=== PATIENT | female | born 1945 | race Caucasian/White ===

== ENCOUNTER 2023-02-25 09:50 | Outpatient (RCR) | payer MEDICARE, BC, SELFPAY | END 2023-03-20 14:13 | disposition home or self-care (01) | LOC: PT 09:50 | PROVIDERS: PCP Family Medicine; Visit Provider Anesthesiology Pain Medicine | DX: M54.16 Radiculopathy, lumbar region (principal); M25.512 Pain in left shoulder | CPT/HCPCS: 97110; 97535 ==

== ENCOUNTER 2023-02-25 09:51 | Outpatient (RCR) | payer MEDICARE, BC, SELFPAY | END 2023-03-01 10:09 | disposition left against medical advice (07) | LOC: PT 09:51 | PROVIDERS: PCP Family Medicine; Visit Provider Family Medicine | DX: M25.512 Pain in left shoulder (principal); Z53.21 Procedure and treatment not carried out due to patient leaving prior to being seen by health care provider ==

== ENCOUNTER 2023-04-06 13:52 | Outpatient (OUT) | payer MEDICARE, BC, SELFPAY ==
--- NOTE | 2023-02-26 10:47 | PM.CN ---
Consult Note: HPI Data of Consult Patient: known to practice within the last 3 years Consult date: 02/26/23 Requesting Physician: Gianna Kelley MD Primary Care Provider: LUIS THOMAS Consult Narrative Reason for consult: back pain Narrative: Letty is here for f/u for low back pain. MRI was done 02/09/23. Results reviewed with patient and suggested neurosurgical consult. She is in agreement. No new sensorimotor issues or bowel or bladder issues. No incontinence. Sx unchanged. She has low back pain that goes down her right leg and causes numbness and tingling intermittently to the right leg. She denies med SE. She also notes slight weakness of right leg cc:: CC: Gianna Kelley MD Review of Systems ROS Status of ROS 10 or more systems reviewed and unremarkable except as noted in history and below Musculoskeletal Reports: back pain Meds Home Medications and Allergies Home Medications Medication Instructions Recorded Confirmed Type aspirin 81 mg tablet,delayed 81 mg PO DAILY 02/26/23 02/26/23 History release (Adult Low Dose Aspirin) denosumab 60 mg/mL subcutaneous 60 mg subcut .Q6 MONTHS 02/26/23 02/26/23 History syringe (Prolia) niacin 500 mg tablet 500 mg PO DAILY 02/26/23 02/26/23 History zonisamide 50 mg capsule 50 mg PO DAILY 02/26/23 02/26/23 History Allergies Allergy/AdvReac Type Severity Reaction Status Date / Time No Known Drug Allergies Allergy Verified 02/26/23 10:20 Exam Constitutional: Common normals: no apparent distress, average body habitus, oriented x3, no limitations, healthy appearing, alert and well nourished General appearance: cooperative, comfortable and well developed Orientation/consciousness: Yes awake, Yes oriented to person, Yes oriented to place and Yes oriented to time HENMT: Common normals: normocephalic, head/scalp atraumatic, external nose normal and moist oral mucous membranes Respiratory: Common normals: normal respiratory effort, no retractions and no use of accessory muscles Effort & inspection: able to speak in complete sentences Back & Pelvis: Lumbar spine/lower back: ROM limited, pain with ROM, paraspinal muscle tenderness and straight leg raise negative bilaterally Other: muscle strength 4/5 right, 5/5 left, sensation intact bilat LE. positive facet load and angel right Extremity: Common normals: normal to inspection, full ROM and normal capillary refill Skin: Common normals: no rashes or lesions noted Assessment and Plan Assessment and Plan (1) Lumbar spondylosis: (2) Lumbar radiculopathy: Plan discussed with patient importance of seeing neurosurgical consult. If cleared by them, may benefit from [facility].
--- NOTE | 2023-04-06 17:37 | CONS_ITS ---
CONSULTATION DATE: ??04/06/2023 TO:? Emely Kramer M.D. CHIEF COMPLAINT:? Includes right leg pain, right buttock pain. HISTORY:? She reports having 5-7/10 pain, deep aching in character with a sharp component, increased with walking for short periods of time.? She reports that she develops heaviness in her legs after ambulating for even short distances.? After resting for a few minutes, she reports her symptomatology does improve dramatically.? She is able to ambulate further with the use of a shopping cart if she is at store.? She denies any change in bowel and bladder habits or new sensorimotor changes in the lower extremities. EXAMINATION:? Notable for patient having no clinical radiculopathy or myelopathy involving the lower extremities.? Patient did have depressed bipatellar reflex, weakness of the iliopsoas muscle bilaterally. IMPRESSION:? Our impression is patient with chronic pain secondary to spinal stenosis with neurogenic claudication.? RECOMMENDATIONS:? I have asked her to increase her Zonegran to 50 mg pills, two pills at bedtime, to proceed with lumbar epidural steroid injection under fluoroscopic guidance at L4-5 level.? I have also requested her to seek consultation with a spine surgeon and have made the appropriate referral to [facility]. As part of providing excellent, safe, comprehensive care, the following was completed at our patient's visit: 1. A medication reconciliation and review to ensure accurate knowledge of current/active medications, including asking our patients to inform us about any opcx-fjd-giqhuhw medications or herbal remedies/nutritional supplements/alternative remedies. 2. A review to specifically ensure our patients have had annual screening for: elevated body mass index (BMI, see intake chart for exact total), tobacco use, screening for depression, and screening for unhealthy alcohol use.? When screening is concerning, patients are provided with education and the specific recommendation to discuss the concerning health issue and treatment options with their primary care provider. TRENT
== END 2023-04-06 13:53 | disposition home or self-care (01) ==
LOC: PM 13:52
PROVIDERS: PCP Family Medicine; Visit Provider Anesthesiology Pain Medicine
DX: M47.26 Other spondylosis with radiculopathy, lumbar region (principal); M54.50 Low back pain, unspecified
CPT/HCPCS: G0463

== ENCOUNTER 2023-04-13 08:48 | Day surgery (SDC) | payer MEDICARE, BC, SELFPAY ==
[2023-04-13 09:05] VITALS: BP 148/93; PULSE 80; RESP 16; TEMP 36.4; O2SAT 97
[2023-04-13] MEDS: BUPIVACAINE HCL 0.25% PF 25 MG/10 ML VIAL 2 ML INJ (09:53)
[2023-04-13] MEDS: 0.9 % SODIUM CHLORIDE 10 ML SYRINGE - SALINE FLUSH 2 ML INJ (09:53)
[2023-04-13] MEDS: IOHEXOL 240 MG/ML - 10 ML VIAL INJ (09:54)
[2023-04-13] MEDS: METHYLPREDNISOLONE ACETATE 80 MG/ML VIAL INJ (09:54)
[2023-04-13] MEDS: LIDOCAINE HCL 2% PF 100 MG/5 ML VIAL 4 ML INJ (09:54)
--- NOTE | 2023-04-13 10:27 | P.ON_ITS ---
Date of procedure: 04/13/23 Pre-op diagnosis: Spinal Stenosis with Claudication Post-op diagnosis: same Procedure: Lumbar Epidural Steroid injection Under fluoroscopic guidance Immediate complications none Solution used for injection: Marcaine 0.25% 2mL, 2cc Normal saline, Depo-Medrol 80mg, Omnipaque 3 mL Anesthesia local 2% lidocaine up to 4ml Time out process compliant After informed consent obtained. patient brought to the procedure room placed in the prone position. skin overlying the area was prepped and draped in a sterile fashion using betadine. 25 gauge needle used To raise a skin wheel with local anesthetic over the target area identified under fluoroscopy . a 17 gauge Touhy needle Was inserted over the anesthetized area and directed towards the inter- space under fluoroscopic guidance . epidural space was identified with loss of resistance technique to air. needle Tip placement confirmed with injection of contrast solution. Steroid solution was then injected. [place] removed post operatively. Patient transferred to recovery room in stable condition, to be discharged home after meeting Criteria Surgeon: Hayes Layton
[2023-04-13 13:35] VITALS: BP 165/79; BP 177/78; PULSE 78; PULSE 79; RESP 20; O2SAT 94; O2SAT 95
== END 2023-04-13 10:02 | disposition home or self-care (01) ==
LOC: SURGOUT 08:50
PROVIDERS: PCP Family Medicine; Visit Provider Anesthesiology Pain Medicine
DX: M48.062 Spinal stenosis, lumbar region with neurogenic claudication (principal)
CPT/HCPCS: 62323; J1040; Q9966

== ENCOUNTER 2023-05-18 09:15 | Outpatient (OUT) | payer MEDICARE, BC, SELFPAY ==
--- NOTE | 2023-05-18 | CONS_ITS ---
CONSULTATION DATE: ??05/18/2023 TO:? Emely Kramer M.D. CHIEF COMPLAINT:? Includes right low back pain. HISTORY:? She reports the pain as being 3-7/10 pain, sharp in character, increased with activities such as standing, walking and performing transitioning maneuvers.? She denies any change in bowel and bladder habits or new sensorimotor changes in the lower extremities.? EXAMINATION:? Notable for patient having no clinical radiculopathy or myelopathy on examination on today?s visit.? Patient did have significant pain with lumbar facet loading maneuvers on the right side at L4-5 and L5-S1 with associated myofascial spasm of the lumbar paravertebral muscles.? She had nothing to suggest facet joint dysfunction on today?s visit. IMPRESSION:? Our impression is patient appears to have chronic pain secondary to lumbosacral spondylosis with facet loading pain clinically.? She had seen a neurosurgeon for her current condition and they did not recommend surgery at this time.? She has failed conservative therapy with medication management, independent home exercise program, and she is somewhat intolerant to non- steroidal agents.? RECOMMENDATIONS:? I recommend proceeding with a right sided L4-5, L5-S1 facet joint injection for therapeutic purposes.? I have increased the Zonegran 50 mg pills, 2-3 pills at h.s. as tolerated.? I have asked her to continue with the current dose of baclofen 10 mg pills, one b.i.d. As part of providing excellent, safe, comprehensive care, the following was completed at our patient's visit: 1. A medication reconciliation and review to ensure accurate knowledge of current/active medications, including asking our patients to inform us about any crml-nce-yuzirxy medications or herbal remedies/nutritional supplements/alternative remedies. 2. A review to specifically ensure our patients have had annual screening for: elevated body mass index (BMI, see intake chart for exact total), tobacco use, screening for depression, and screening for unhealthy alcohol use.? When screening is concerning, patients are provided with education and the specific recommendation to discuss the concerning health issue and treatment options with their primary care provider TRENT
== END 2023-05-18 09:16 | disposition home or self-care (01) ==
LOC: PM 05-19 11:17
PROVIDERS: PCP Family Medicine; Visit Provider Nurse Practitioner
DX: M47.817 Spondylosis without myelopathy or radiculopathy, lumbosacral region (principal); G89.29 Other chronic pain
CPT/HCPCS: G0463

== ENCOUNTER 2023-06-15 12:23 | Day surgery (SDC) | payer MEDICARE, BC, SELFPAY ==
[2023-06-15 12:51] VITALS: BP 161/87; PULSE 81; RESP 16; TEMP 36.2; O2SAT 98
[2023-06-15 13:37] VITALS: RESP 20
[2023-06-15] MEDS: METHYLPREDNISOLONE ACETATE 40 MG/ML VIAL INJ (13:42)
[2023-06-15] MEDS: BUPIVACAINE HCL 0.25% PF 25 MG/10 ML VIAL 4 ML INJ (13:43)
[2023-06-15 13:45] VITALS: BP 173/81; BP 178/93; PULSE 71; PULSE 73; O2SAT 95; O2SAT 96
--- NOTE | 2023-06-15 13:59 | W.PM.PROCNOT ---
Date of procedure: 06/15/23 Pre-op diagnosis: Lumbar Spondylosis Post-op diagnosis: same as pre-op Procedure: Right lumbar 4/5, 5/S1 facet injection Under fluoroscopic guidance Solution injected: 2millilitersMarcaine 0.25% Anesthesia :none Immediate complications none Time out process compliant After informed consent obtained from the patient placed in the Prone proposition . area was prepped and draped in a sterile fashion using betadine. 25 gauge spinal needle inserted over each of the above mentioned target areas . Johnson were directed towards the target under fluoroscopic guidance . after encountering each of the targets , no indication of intravascular intraneuronal or intrathecal needle tip placement. Then 0 .5 to 1 Milliliter was injected at each level. Johnson removed postoperatively. patient transferred to recovery in stable condition to be discharged home after meeting criteria Anesthesia: Local Surgeon: Hayes Layton Condition: stable
== END 2023-06-15 13:48 | disposition home or self-care (01) ==
LOC: SURGOUT 12:24
PROVIDERS: PCP Family Medicine; Visit Provider Anesthesiology Pain Medicine
DX: M47.816 Spondylosis without myelopathy or radiculopathy, lumbar region (principal)
CPT/HCPCS: 64493; 64494; J1030

== ENCOUNTER 2023-06-29 14:06 | Outpatient (OUT) | payer MEDICARE, BC, SELFPAY ==
--- NOTE | 2023-06-29 | CONS_ITS ---
CONSULTATION DATE: ??06/29/2023 TO:? Emely Kramer M.D. CHIEF COMPLAINT:? Includes 2-5/10 pain in her right lower extremity, right buttock area, described as a dull, aching pain, increased with activities such as standing and walking, performing transitioning maneuvers.? Denies any change in bowel and bladder habits or new sensorimotor changes in the lower extremities.? EXAM:? Her examination is notable for patient having hypoesthesia along the right L5 dermatome, weakness to the right EHL, depressed right Achilles reflex and straight leg raise positive at approximately 90 degrees.? IMPRESSION:? Our impression is patient has chronic pain secondary to right L5 radiculopathy, which is fairly stable at this time.? RECOMMENDATIONS:? I have asked her to continue with Tylenol, to not ingest more than 2000 mg in a 24 hour period.? I asked her to continue with the Zonegran 150 mg at h.s.? Since she is fairly stable at this point, she feels that he does not wish to proceed with surgery.?? Since she is fairly stable, despite her symptoms and signs consistent with right L5 radiculopathy, I have recommended no further intervention at this time.? We will see the patient back in the office in approximately six months? time or sooner if needed. As part of providing excellent, safe, comprehensive care, the following was completed at our patient's visit: 1. A medication reconciliation and review to ensure accurate knowledge of current/active medications, including asking our patients to inform us about any gpgr-vle-rdiehkv medications or herbal remedies/nutritional supplements/alternative remedies. 2. A review to specifically ensure our patients have had annual screening for: elevated body mass index (BMI, see intake chart for exact total), tobacco use, screening for depression, and screening for unhealthy alcohol use.? When screening is concerning, patients are provided with education and the specific recommendation to discuss the concerning health issue and treatment options with their primary care provider. TRENT
== END 2023-06-29 14:07 | disposition home or self-care (01) ==
LOC: PM 14:07
PROVIDERS: PCP Family Medicine; Visit Provider Anesthesiology Pain Medicine
DX: G89.29 Other chronic pain (principal); M54.16 Radiculopathy, lumbar region
CPT/HCPCS: G0463

== ENCOUNTER 2023-07-15 07:43 | Outpatient (RCR) | payer MEDICARE, BC, SELFPAY ==
[2023-07-10 07:36] LABS: Calcium 8.5 mg/dL (8.5-10.1); Estimated GFR (African America >60 (>=60); Estimated GFR (Non-African Ame >60 (>=60)
[2023-07-15] MEDS: DENOSUMAB 60 MG/ML SYRINGE SUBQ (08:18)
[2023-07-15 08:23] VITALS: BP 134/74; PULSE 70; RESP 18; TEMP 36.6; O2SAT 98
== END 2023-07-27 23:59 | disposition home or self-care (01) ==
LOC: INF 07:43
PROVIDERS: PCP Family Medicine; Visit Provider Family Medicine
DX: M81.0 Age-related osteoporosis without current pathological fracture (principal)
CPT/HCPCS: 36415; 82306; 82310; 82565; 96372; J0897

== ENCOUNTER 2023-07-19 08:06 | Outpatient (OUT) | payer MEDICARE, BC, SELFPAY ==
--- NOTE | 2023-07-19 | MM_ITS ---
Patient: GAYATHRI LOPEZ Exam Date: 07/19/2023 : 1945 Gender:F Ordering : DR Emely Kramer M.D. Admission #: [id number] Family : Order #: [id number] CLICK HERE TO VIEW EXAM RADIOLOGY REPORT PROCEDURE: MM TOMOSYNTHESIS SCREENING BI COMPARISON: MG MAMM SCREEN 3D SHERRIE CAD, 03/05/2022. MG MAMM SCREEN SHERRIE W CAD, 10/24/2020. MG MAMM SCREEN SHERRIE W CAD, 07/21/2019. MG MAMM SHERRIE SCRN W CAD DIG, 06/12/2013. INDICATIONS: Screening Calculator Name NCI Breast Cancer Risk Assessment Tool 5 Year Breast Cancer Risk 1.60% Lifetime Breast Cancer Risk 3.20% Personal Breast Cancer No Personal Ovarian Cancer No Treatments None Family Cancers None LOCATION: [facility] BREAST COMPOSITION: Scattered areas fibroglandular density. FINDINGS: DIAGNOSTIC CATEGORY 1--NEGATIVE. RIGHT BREAST: No significant suspicious finding. No significant change has occurred. LEFT BREAST: No significant suspicious finding. No significant change has occurred. RECOMMENDATIONS: ROUTINE MAMMOGRAM AND CLINICAL EVALUATION IN 12 MONTHS. PLEASE NOTE: A NORMAL MAMMOGRAM DOES NOT EXCLUDE THE POSSIBILITY OF BREAST CANCER. A CLINICALLY SUSPICIOUS PALPABLE LUMP SHOULD BE BIOPSIED. Dictated by: Matthew Lopez M.D. on 07/20/2023 at 14:50 Approved by: Matthew Lopez M.D. on 07/20/2023 at 14:52
== END 2023-07-19 08:07 | disposition home or self-care (01) ==
LOC: MAMMO 08:06
PROVIDERS: PCP Family Medicine; Visit Provider Family Medicine
DX: Z12.31 Encounter for screening mammogram for malignant neoplasm of breast (principal)
CPT/HCPCS: 77063; 77067

== ENCOUNTER 2024-01-11 13:03 | Outpatient (OUT) | payer MEDICARE, BC, SELFPAY ==
--- NOTE | 2024-01-11 | CONS_ITS ---
CONSULTATION DATE: 01/11/2024 TO: Kimber Price CNP CHIEF COMPLAINT: Includes severe right leg pain. HISTORY: She reports the pain as being 5-6/10 pain, sharp in character with a shooting component, increased with activities such as standing, walking and performing transitioning maneuvers. She feels most comfortable in the semi- recumbent position. She denies any change in bowel and bladder habits, but reports progressive tingling and weakness of the right lower extremity. CURRENT MEDICATION: Includes Zonegran 50 mg pills, three pills at bed; Baclofen 10 mg pills, one b.i.d., and she reports Tylenol is ineffective any more. Her MELANIA (Oswestry Disability Index) is 28. EXAMINATION: Notable for patient having 3/5 strength involving her right anterior tibialis and quadriceps, with depressed right patellar reflex, and straight leg is positive at approximately 90 degrees. She had no appreciable signs consistent with myelopathy of the lower extremities. IMPRESSION: Our impression is patient appears to have right L4 radiculopathy. RECOMMENDATIONS: I recommend that she proceed with a caudal epidural steroid injection under fluoroscopic guidance with advancement of the catheter to the L4 level. I have asked her to discontinue Tylenol. Will trial her on tramadol 50 mg pills, half a pill to one pill b.i.d. as tolerated, and to maintain Zonegran and baclofen as ordered. As part of providing excellent, safe, comprehensive care, the following was completed at our patient's visit: 1. A medication reconciliation and review to ensure accurate knowledge of current/active medications, including asking our patients to inform us about any zwpx-urt-dytiicc medications or herbal remedies/nutritional supplements/alternative remedies. 2. A review to specifically ensure our patients have had annual screening for: elevated body mass index (BMI, see intake chart for exact total), tobacco use, screening for depression, and screening for unhealthy alcohol use. When screening is concerning, patients are provided with education and the specific recommendation to discuss the concerning health issue and treatment options with their primary care provider. TRENT
== END 2024-01-11 13:04 | disposition home or self-care (01) ==
LOC: PM 13:03
PROVIDERS: PCP Nurse Practitioner Family; Visit Provider Anesthesiology Pain Medicine
DX: M54.16 Radiculopathy, lumbar region (principal)
CPT/HCPCS: G0463

== ENCOUNTER 2024-01-25 07:35 | Day surgery (SDC) | payer MEDICARE, BC, SELFPAY ==
--- OUTSIDE RECORDS SUMMARY | 2024-01-25 07:38 | XMS_ITS | CCD ---
Author Organization [facility] Care Team Providers Care Tester Sound Name Role Phone DARA, EMRE Llanes Unavailable Unavailable DARA, EMRE K Unavailable Unavailable KAT NOBLE Unavailable Unavailable Emely Thomas Unavailable MARTHA, DR EMELY Becker Primary Care Unavailable THOMAS, DR EMELY Becker Admitting Unavailable THOMAS, DR EMELY Becker Attending Unavailable LEES ., DR YULI Nguyen Attending Unavailable LEES ., DR YULI Nguyen Admitting Unavailable LEES ., DR YULI Nguyen Consulting Unavailable MARTHA, DR EMELY Becker Primary Care Unavailable JOSE MANUEL LUNA Consulting Unavailable LAKSHMIPATHY ., ROZATH Consulting Johanny vailable LAKSHMIPATHY ., MORRIS Admitting Johanny vailable LAKSHMIPATHY ., MORRIS Attending Johanny vailable MARTHA, DR EMELY Becker Primary Care Unavailable THOMAS, DR EMELY Becker Admitting Unavailable THOMAS, DR EMELY Becker Primary Care Unavailable THOMAS, DR EMELY Becker Attending Unavailable THOMAS, DR EMELY Becker Consulting Unavailable THMOAS, DR EMELY Becker Primary Care Unavailable LEES ., DR YULI Nguyen Consulting Unavailable LEES ., DR YULI Nguyen Attending Unavailable LEES ., DR YULI Nguyen Admitting Unavailable LEES ., DR YULI Nguyen Consulting Unavailable LEES ., DR YULI Nguyen Admitting Unavailable LEES ., DR YULI Nguyen Attending Unavailable MARTHA, DR EMELY Becker Primary Care Unavailable LAKSHMIPATHY ., NARHARVINDER Admitting Johanny vailable LAKSHMIPATHY ., MORRIS Attending Johanny vailable MARTHA, DR EMELY Becker Primary Care Unavailable WINDSOR, DR YOUSUF Ferguson Consulting Unavailable THOMAS, DR EMELY Becker Admitting Unavailable THOMAS, DR EMELY Becker Primary Care Unavailable THOMAS, DR EMELY Becker Attending Unavailable THOMAS, DR EMELY Becker Consulting Unavailable MARTHA, DR EMELY Becker Primary Care Unavailable LEES ., DR YULI Nguyen Attending Unavailable LEES ., DR YULI Nguyen Consulting Unavailable LEES ., DR YULI Nguyen Admitting Unavailable THOMAS, DR EMELY Becker Primary Care Unavailable LAKSHMIPATHY ., NARENDRANATH Admitting Johanny vailable LAKSHMIPATHY ., NARENDRANATH Attending Johanny vailable RUIZ ., SHAWNA Consulting Unavailable LAKSHMIPATHY ., NARENDRANATH Consulting Johanny vailable LEES ., DR YULI Nguyen Attending Unavailable LEES ., DR YULI Nguyen Admitting Unavailable THOMAS, DR EMELY Becker Primary Care Unavailable THOMAS, DR EMELY Becker Consulting Unavailable LEES ., DR YULI Nguyen Consulting Unavailable RUIZ ., SHAWNA Consulting Unavailable LEES ., DR YULI Nguyen Attending Unavailable LEES ., DR YULI Nguyen Admitting Unavailable LEES ., DR YULI Nguyen Consulting Unavailable THOMAS, DR EMELY Becker Primary Care Unavailable JILL STALLINGS Consulting Unava ilable LEES ., DR YULI Nguyen Consulting Unavailable LEES ., DR YULI Nguyen Admitting Unavailable LEES ., DR YULI Nguyen Attending Unavailable THOMAS, DR EMELY Becker Primary Care Unavailable LEES ., DR YULI Nguyen Admitting Unavailable LEES ., DR YULI Nguyen Attending Unavailable LEES ., DR YULI Nguyen Consulting Unavailable THOMAS, DR EMELY Becker Primary Care Unavailable RUIZ ., SHAWNA Consulting Unavailable LEES ., DR YULI Nguyen Attending Unavailable LEES ., DR YULI Nguyen Admitting Unavailable THOMAS, DR EMELY Becker Primary Care Unavailable LEES ., DR YULI Nguyen Admitting Unavailable LEES ., DR YULI Nguyen Attending Unavailable WINDSOR, DR YOUSUF Ferguson Consulting Unavailable THOMAS, DR EMELY Becker Primary Care Unavailable LEES ., DR YULI Nguyen Consulting Unavailable THOMAS, DR EMELY Becker Primary Care Unavailable THOMAS, DR EMELY Becker Admitting Unavailable THOMAS, DR EMELY Becker Attending Unavailable THOMAS, DR EMELY Becker Consulting Unavailable THOMAS, DR EMELY Becker Admitting Unavailable THOMAS, DR EMELY Becker Primary Care Unavailable THOMAS, DR EMELY Becker Attending Unavailable THOMAS, DR EMELY Becker Consulting Unavailable LAKSHMIPATHY ., NARENDRANATH Admitting Johanny vailable LAKSHMIPATHY ., NARENDRANATH Attending Johanny vailable THOMAS, DR EMELY Becker Primary Care Unavailable LAKSHMIPATHY ., NARENDRANATH Consulting Johanny vailable LAKSHMIPATHY ., NARENDRANATH Admitting Johanny vailable LAKSHMIPATHY ., NARENDRANATH Attending Johanny vailable THOMAS, DR EMELY Becker Primary Care Unavailable RUIZ ., SHAWNA Consulting Unavailable LEES ., DR YULI Nguyen Admitting Unavailable LEES ., DR YULI Nguyen Attending Unavailable MARTHA, DR EMELY Becker Primary Care Unavailable MARTHA, DR EMELY Becker Admitting Unavailable THOMAS, DR EMELY Becker Attending Unavailable THOMAS, DR EMELY Becker Consulting Unavailable THOMAS, DR EMELY Becker Primary Care Unavailable LAKSHMIPATHY ., NARENDRANATH Consulting Johanny vailable LAKSHMIPATHY ., NARENDRANATH Admitting Johanny vailable LAKSHMIPATHY ., NARENDRANATH Attending Johanny vailable THOMAS, DR EMELY Becker Primary Care Unavailable LEES ., DR YULI Nguyen Admitting Unavailable LEES ., DR YULI Nguyen Attending Unavailable LEES ., DR YULI Nguyen Consulting Unavailable MARTHA, DR EMELY Becker Primary Care Unavailable RUIZ ., SHAWNA Admitting Unavailable RUIZ ., SHAWNA Attending Unavailable RUIZ ., SHAWNA Consulting Unavailable MARTHA, DR EMELY Becker Primary Care Unavailable Ej Thomas Unavailable OVITT, Referring Unavailable OVITT, Referring Unavailable OVITT, Referring Unavailable OVITT, Attending Unavailable DUSTY DURAND Attending Unavailable DUSTY DURAND Attending Unavailable DUSTY DURAND Attending Unavailable DUSTY DURAND Attending Unavailable DUSTY DURAND Attending Unavailable Allergies Allergy Classification Reported Allergen(s) Allergy Type Date of Onset Reaction(s) Facility (1 source) ALLERGIES NOT ON FILE; Translations: [ALLERGIES NOT ON FILE] Propensity to adverse reactions (disorder) [facility] Repository Medications Current Medications Medication Drug Class(es) Dates Sig (Normalized) Sig (Original) amoxicillin 875 mg / clavulanate 125 mg oral tablet (1 source) Penicillin-class Antibacterial Start: 06-30-2023 take 1 tablet by mouth every twelve hours Amoxicillin-Pot Clavulanate 875-125 MG 1 tablet Orally every 12 hrs for 10 day(s) Jun, Active ascorbic acid 113 mg / copper gluconate 0.4 mg / docosahexaenoic acid 87.5 mg / eicosapentaenoic acid 163 mg / lutein 2.5 mg / tocopherol acetate 100 unt / zeaxanthin 0.5 mg / zinc oxide 17.4 mg oral capsule (5 sources) Vitamin C PreserVision AREDS 2 - as directed Orally Active aspirin 81 mg oral tablet (5 sources) Platelet Aggregation Inhibitor, Nonsteroidal Anti-inflammatory Drug take 1 tablet by mouth once daily Aspirin 81 81 MG 1 tablet Orally Once a day Active take 1 tablet by arminda th every twenty-four hours Aspirin 81 81 MG 1 tablet Orally Once a day Active baclofen 10 mg oral tablet (6 sources) gamma-Aminobutyric Acid-ergic Agonist take 1 tablet by mouth every twelve hours Baclofen 10 MG 1 tablet as needed Orally Twice a day Active calcium carbonate 1500 mg oral tablet (5 sources) take 1 tablet by mouth every twelve hours Calcium 600 MG 1 tablet with meals Orally Twice a day Active cholecalciferol 0.05 mg oral tablet (5 sources) Vitamin D take 1 tablet by mouth every twenty-four hours Vitamin D 50 MCG (2000 UT) 1 tablet Orally Once a day Active 1 ml denosumab 60 mg/ml prefilled syringe (6 sources) RANK Ligand Inhibitor Prolia 60 MG/ML as directed Subcutaneous Active Fish Oils (5 sources) take 1 capsule by mouth once daily Fish Oil 1000 MG 1 capsule Orally Once a day Active Uomxar-Wjqj-OJZ-Ca-C-C tCl-SeCu - (5 sources) Jrosdh-Wioo-ROY- Ca -C-CtCl-SeCu - as directed Orally Active losartan potassium 25 mg oral tablet (6 sources) Angiotensin 2 Receptor Héctor Start: 023 take 1 tablet by mouth every twenty-four hours Losartan Potassium 25 MG 1 tablet Orally Once a day for 30 day(s) Dec, Active magnesium glycinate 100 mg oral tablet (5 sources) Magnesium Glycinate 100 MG as directed Orally Active niacin 500 mg oral tablet (5 sources) Nicotinic Acid take 1 tablet by mouth every twenty-four hours Niacin 500 MG 1 tablet with food Orally Once a day Active vitamin k 0.1 mg oral tablet (5 sources) Vitamin K2 100 M CG as directed Orally Active Womens 50+ Multi Vitamin - (5 sources) Womens 50+ Multi Vitamin - as directed Orally Active zonisamide 50 mg oral capsule (5 sources) Anti-epileptic Agent Zonisamide 50 MG as directed Orally Active Completed/Discontinued Medications Medication Drug Class(es) Dates Sig (Normalized) Sig (Original) Lidocaine (3 sources) Antiarrhythmic, Amide Local Anesthetic Start: 04-13-2023 Lidocaine Mar, 20 mg triamcinolone acetonide 40 mg/ml injectable suspension (9 sources) Corticosteroid Start: 04-13-2023 Kenalog-40 Mar, 40 mg Problems Active Problems Problem Classification Problem Date Documented Date Episodic/Chronic Disorders of lipid metabolism (6 sources) Hyperlipidemia; Translations: [Hyperlipidemia, unspecified] Chronic Diverticulosis and diverticulitis (6 sources) Diverticular disease of colon; Translations: [Diverticulosis of colon] Chronic Essential hypertension (8 sources) Essential hypertension; Translations: [Essential (primary) hypertension] Onset: 05-02-2022 Chronic Heart valve disorders (6 sources) Heart murmur; Translations: [Cardiac murmur, unspecified] Episodic Nutritional deficiencies (5 sources) Vitamin D deficiency; Translations: [Vitamin D deficiency, unspecified] Chronic Osteoarthritis (1 source) Unilateral primary osteoarthritis, right hip; Translations: [UNI PRIM OSTEOARTHRITIS RT HIP] Onset: 05-02-2022 Chronic Osteoporosis (5 sources) Age-related osteoporosis without current pathological fracture; Translations: [AGE-REL OSTEOPOR W/O CURR PATH FX] Onset: 05-21-2022 Chronic Other acquired deformities (1 source) Other forms of scoliosis, lumbar region; Translations: [OTHER FORMS SCOLIOSIS LUMBAR REGION] Onset: 10-14-2022 Chronic Other acquired deformities (4 sources) Scoliosis, unspecified; Translations: [SCOLIOSIS UNSPECIFIED] Onset: 08-13-2022 Chronic Other acquired deformities (1 source) Other forms of scoliosis, site unspecified; Translations: [OTHER FORMS SCOLIOSIS SITE UNS] Onset: 05-21-2022 Chronic Other acquired deformities (5 sources) Scoliosis deformity of spine; Translations: [Scoliosis, unspecified] Chronic Other aftercare (3 sources) Other moth exterminator (current) drug therapy; Translations: [OTH RETAIL CASHIER ASSOCIATE CURRENT DRUG THERAPY] Onset: 03-12-2022 Episodic Other bone disease and musculoskeletal deformities (5 sources) Osteopenia; Translations: [Other specified disorders of bone density and structure, unspecified site] Episodic Other bone disease and musculoskeletal deformities (6 sources) Other specified disorders of bone density and structure, unspecified site; Translations: [OT D/O BONE DEN STRUCT UNS SITE] Onset: 05-21-2022 Episodic Other circulatory disease (5 sources) Elevated blood-pressure reading without diagnosis of hypertension; Translations: [Elevated blood-pressure reading, without diagnosis of hypertension] Episodic Other circulatory disease (1 source) Elevated blood-pressure reading, without diagnosis of hypertension; Translations: [Elevated blood pressure reading] Episodic Other connective tissue disease (1 source) Pain in right lower leg; Translations: [PAIN IN RIGHT LOWER LEG] Onset: 02-04-2023 Episodic Other hereditary and degenerative nervous system conditions (1 source) Other dystonia; Translations: [OTHER DYSTONIA] Onset: 08-13-2022 Chronic Other nervous system disorders (6 sources) Chronic pain; Translations: [Other chronic pain] Chronic Other nervous system disorders (2 sources) Other chronic pain; Translations: [OTHER CHRONIC PAIN] Onset: 01-09-2023 Chronic Other nervous system disorders (4 sources) Other specified mononeuropathies of right lower limb; Translations: [OTH SPEC MONONEUROPATH RT LOW LIMB] Onset: 01-12-2023 Chronic Other nervous system disorders (1 source) Other specified mononeuropathies; Translations: [OTHER SPECIFIED MONONEUROPATHIES] Onset: 01-09-2023 Chronic Other non-traumatic joint disorders (5 sources) Arthralgia of the pelvic region and thigh; Translations: [Pain in right hip] Episodic Other non-traumatic joint disorders (6 sources) Pain in left shoulder; Translations: [PAIN IN LEFT SHOULDER] Onset: 01-28-2023 Episodic Other non-traumatic joint disorders (6 sources) Pain in right hip; Translations: [PAIN IN RIGHT HIP] Onset: 03-12-2022 Episodic Other upper respiratory infections (1 source) Acute maxillary sinusitis, unspecified Episodic Residual codes; unclassified (7 sources) Asymptomatic menopausal state; Translations: [Menopause] Onset: 03-12-2022 Episodic Spondylosis; intervertebral disc disorders; other back problems (16 sources) Other spondylosis with radiculopathy, lumbar region; Translations: [Spondylosis without myelopathy or radiculopathy, lumbar region] Onset: 07-30-2022 Chronic Spondylosis; intervertebral disc disorders; other back problems (10 sources) Radiculopathy, lumbar region; Translations: [Intervertebral disc disorders with radiculopathy, lumbar region] Onset: 05-02-2022 Episodic Unclassified (1 source) MACULAR PUCKER RIGHT EYE / MACULAR PUCKER RIGHT EYE() Onset: 04-27-2017 Unclassified (4 sources) LOW BACK PAIN, UNSPECIFIED; Translations: [LOW BACK PAIN, UNSPECIFIED] Onset: 09-03-2022 Unclassified (1 source) CONTACT W/AND (SUSP) EXPOS COVID-19; Translations: [CONTACT W/AND (SUSP) EXPOS COVID-19] Onset: 09-03-2022 Past or Other Problems Problem Classification Problem Date Documented Da te Episodic/Chronic Other connective tissue disease (5 sources) Other muscle spasm; Translations: [OTHER MUSCLE SPASM] Onset: 05-02-2022 Episodic Other connective tissue disease (1 source) Muscle wasting and atrophy, not elsewhere classified, unspecified site; Translations: [MUSCLE WASTING ATROPHY NEC UNS SITE] Onset: 05-21-2022 Episodic Other connective tissue disease (1 source) Sarcopenia; Translations: [SARCOPENIA] Onset: 05-21-2022 Episodic Other screening for suspected conditions (not mental disorders or infectious disease) (1 source) Encounter for screening mammogram for malignant neoplasm of breast; Translations: [ENC SCR MAMMO MALIG NEOPLASM BREAST] Onset: 03-12-2022 Episodic Unclassified (1 source) MACULAR PUCKER RIGHT EYE; Translations: [MACULAR PUCKER RIGHT EYE] Onset: 04-27-2017 Unclassified (1 source) LOW BACK PAIN, UNSPECIFIED; Translations: [LOW BACK PAIN, UNSPECIFIED] Onset: 01-28-2023 Viral infection (6 sources) Disease caused by 2019-nCoV; Translations: [COVID-19] Results Test Name Value Interpretation Reference Range Facility 36on 05-17-2023 36 Spoke with patient. Explained that I had reviewed her imaging with Dr. Lopez last week. He does not recommend fusion surgery or decompressive surgery but thinks SCS may be reasonable option. Briefly discussed procedure for SCS. Patient will check to see if her pain management provider does this. If not, she will call back and I can refer her to someone who does SCS. [facility] 36on 05-14-2023 36 Left message for an reynoso on identified voicemail that I had reviewed his imaging with Dr. Lopez. He does not recommend on surgery in the form of instrumented fusion or even foraminotomies/laminectom y as he has not found this to be helpful in patients with extensive scoliosis. May be candidate for spinal cord stimulation. Advised patient that I will call her back on Wednesday to follow-up regarding this. Normal [facility] Telephoneon 05-14-2023 Telephone [id number] Naun Coffey ice 1945 F Date Provider Department Center 05/14/2023 ALLISON SKAGGS [facility] Second Fl Family History Problem Relation Age of Onset Other Mother Stomach cancer Father Family Status - Relation Status Age at Mother Father Normal [facility] Consulton 05-13-2023 Consult [id number] Naun Coffey ice 1945 F Date Provider Department Center 05/13/2023 148ALLISON FENTON [facility] Second Fl Family History Problem Relation Age of Onset Other Mother Stomach cancer Father Family Status - Relation Status Age at Mother Father Level of Service:21856 OR OFFICE/OUTPATIENT NEW MODERATE MDM 45-59 MINUTES Reason for Visit and Comments: Consult [[id number]] - Pt is here for a CO visit for Spinal Stenosis. [facility] 36on 04-16-2023 36 LVM for pt to call jose shanks to schedule with or Dr. Lopez for Lunbar Stenosis. Imaging requested from [place]. Normal [facility] MRI LSPINE WO CONon 02-11-20 23 MRI LSPINE WO CON EXAMINATION: MRI LSP INE WO CON HISTORY: Lumbar radiculitis ; chronic back and right leg pain COMPARISON: XR L-spine 05/01/2022 TECHNIQUE: A variety of imaging planes and parameters were utilized for visualization of suspected pathology. FINDINGS: For the purposes of numbering, sagittal T2 image # [id number] extends from the T9 vertebral body superiorly to the S3 level inferiorly. PARASPINAL AREA: Normal with no visible mass. BONES: Multilevel lateral listhesis of lumbar spine, right side wedging of vertebral bodies, and marked scoliotic curvature of lumbar spine measured at 74 degrees on prior radiographs. No increased T2 signal within the vertebral bodies to suggest acute compression fracture. CORD/CAUDA EQUINA: Normal caliber, contour, and signal intensity. DISC LEVELS: 12-L1: Moderate foramen narrowing. No significant central canal or left foramen narrowing. L1-L2: Marked right foramen narrowing without significant central canal or left foramen narrowing. Marked disc space narrowing on right side with prominent left lateral listhesis of L2 in relation L1 L3. L2-L3: Moderate right foramen narrowing without significant central canal narrowing. Prominent left lateral listhesis of L2 on 3. Spinal cord appears to be pulled tightly against the right side of the central canal. Marked disc space narrowing on right side. Moderate degenerative arthropathy of the right facet joint. L3-L4: Moderate foramen narrowing bilaterally. Spinal cord is pulled tightly to the right side of the central canal appears to be compressed between the vertebral body and facet joint. Moderate degenerative facet arthropathy bilaterally. Marked disc space narrowing on right side. L4-L5: Moderate right, moderate marked left foramen narrowing. Moderate central canal narrowing. Mild disc at reduction and mild left lateral listhesis of L4 relation L5. Marked degenerative facet arthropathy. L5-S1: Marked left foramen narrowing. Mild right foramen and central canal narrowing. Moderate disc space narrowing on left side. Moderate degenerative facet arthropathy bilaterally. IMPRESSION: 1. Very limited examination due to extreme scoliosis and grade 1-2 left lateral listhesis of L1, L2, L3, L4 in relation to the next lower level. 2. The spinal cord appears to be pulled tightly against the right side of the central canal which likely contributes to patient's symptoms. At L3-4 the cord appears compressed between the vertebral body and right facet joints. 3. Multilevel moderate-marked foramen narrowing, predominantly on the right side, but also seen on the left at several levels. 4. Mild right lateral wedging of several vertebral bodies, but no acute or subacute compression fracture. Electronically authenticated by: OFE COFFEY Date: 2023-02-10 07:16 Normal [facility] CALCIUMon 12-24-2022 Calcium [Mass/Vol] 9.7 mg/dL Normal 8.5-10.1 [facility] Comment on above: Performed By: #### C ADI John ####[facility] [id number] [place] [address]Dr. Holly Fisher CREATININEon 12-24-2022 Creatinine [Mass/Vol] 0.62 mg/dL Normal 0.55-1.02 [facility] Comment on above: Performed By: #### C ADI John ####[facility] [id number] [place] [address]Dr. Holly Fisher EGFR-AF NIGERIEN >60 Normal >=60 [facility] Comment on above: Performed By: #### C A, CREA ####[facility] [address] [place], [place] [address]Ws. Holly Fisher EGFR-NON AF NIGERIEN >60 Normal >=60 [facility] Comment on above: Performed By: #### C Dora, CREA ####[facility] [id number] [place], [place] [address]Qs. Holly Fisher Covid-19 PCR (CVDTBH)on SARS-CoV-2 (COVID-19) RNA FRED+probe Ql (Unsp spec) Not detected Normal NOT DETECTED [facility] Comment on above: Result Comment: This test is not yet approved or cleared by the [place] FDA. When there are no FDA-approved or cleared tests available, and other criteria are met, FDA can make tests available under an emergency access mechanism called an Emergency Use Authorization (EUA). The EUA for this test is supported by the [place] of Health and Human Service's (HHS's) declaration that circumstances exist to justify the emergency use of in vitro diagnostics for the detection and/or diagnosis of the virus that causes COVID-19. This EUA will remain in effect (meaning this test can be used) for the duration of the COVID-19 declaration justifying emergency of IVDs, unless it is terminated or revoked by FDA (after which the test may no longer be used). When diagnostic testing is negative, the possibility of a false negative should be considered in the context of a patient's recent exposures and the presence of clinical signs and symptoms consistent with SARS-CoV-2. Performed By: #### C VDTBH ####[facility] [address] [place], [place] [address]Qx. Holly Fisher Covid-19 PCR (CVDTBH)on 07-28 SARS-CoV-2 (COVID-19) RNA FRED+probe Ql (Unsp spec) Not detected Normal NOT DETECTED [facility] Comment on above: Result Comment: This test is not yet approved or cleared by the [place] FDA. When there are no FDA-approved or cleared tests available, and other criteria are met, FDA can make tests available under an emergency access mechanism called an Emergency Use Authorization (EUA). The EUA for this test is supported by the [place] Worker of Health and Human Service's (HHS's) declaration that circumstances exist to justify the emergency use of in vitro diagnostics for the detection and/or diagnosis of the virus that causes COVID-19. This EUA will remain in effect (meaning this test can be used) for the duration of the COVID-19 declaration justifying emergency of IVDs, unless it is terminated or revoked by FDA (after which the test may no longer be used). When diagnostic testing is negative, the possibility of a false negative should be considered in the context of a patient's recent exposures and the presence of clinical signs and symptoms consistent with SARS-CoV-2. Performed By: #### Jose VDTB #### [facility] [address] [place] [address] Dr. Holly Fisher CALCIUMon 06-12-2022 Calcium [Mass/Vol] 9.0 mg/dL Normal 8.5-10.1 [facility] Comment on above: Performed By: #### XAVIER HOOD ####[facility] [id number] [place] [address]Dr. Holly Fisher CREATININEon 06-12-2022 Creatinine [Mass/Vol] 0.65 mg/dL Normal 0.55-1.02 [facility] Comment on above: Performed By: #### XAVIER HOOD #### [facility] [address] [place] [address] Dr. Holly Fisher EGFR-AF NIGERIEN >60 Normal >=60 [facility] Comment on above: Performed By: #### XAVIER HOOD #### [facility] [address] [place] [address] Dr. Holly Fisher EGFR-NON AF NIGERIEN >60 Normal >=60 [facility] Comment on above: Performed By: #### XAVIER HOOD #### [facility] [address] [place] [address] Dr. Holly Fisher XR LSPINE W_OBLS AND FLEX_EX Ton 05-04-2022 XR LSPINE W_OBLS AND FLEX_EXT EXAMINATION: XR LSPINE W_OBLS AND FLEX_EXT HISTORY: Low back pain COMPARISON: No relevant comparison available. FINDINGS: BONES: 74 degrees of rotatory levoscoliosis. 7 mm left lateral subluxation of L2 in relation to L3, 9 mm lateral subluxation of L4 in relation L5. Right-sided wedge compression fractures of L1 and L3. Severe diffuse degenerative spondylosis and facet osteoarthropathy. DISC SPACES: Severe right-sided disc space narrowing related to scoliosis PARASPINOUS: Negative. No paraspinous abnormality is seen. OTHER: No definite transient spondylolisthesis with limited by scoliosis IMPRESSION: Severe scoliosis and severe degenerative changes with no definite dynamic instability Electronically authenticated by: YOUSUF ORTIZ Date: 2022-05-04 08:47 Normal [facility] CBC AUTO DIFFon 03-05-2022 BASO # 0.1 103/ul Normal 0.0-0.1 [facility] Comment on above: Performed By: #### C BC ####[facility] [address] [place] [address]Dr. Holly Fisher Basophils/100 WBC (Bld) 1.0 % Normal 0.2-2.0 [facility] Comment on above: Performed By: #### C BC ####[facility] [address] [place] [address]Dr. Holly Fisher EO # 0.2 103/ul Normal 0.0-0.7 [facility] Comment on above: Performed By: #### C BC ####[facility] [address] [place] [address]Dr. Holly Fisher Eosinophils/100 WBC (Bld) 2.4 % Normal 0.9-7.0 [facility] Comment on above: Performed By: #### C BC ####[facility] [address] [place] [address]Dr. Holly Fisher Erythrocyte distribution width (RBC) [Ratio] 14.4 % Normal 11.0-15.0 [facility] Comment on above: Performed By: #### C BC ####[facility] [address] [place] [address]Dr. Holly Fisher Hematocrit (Bld) [Volume fraction] 41.1 % Normal 36.0-48.0 [facility] Comment on above: Performed By: #### C BC ####[facility] [address] [place] [id number]. Holly Fisher Hemoglobin (Bld) [Mass/Vol] 13.4 g/dL Normal 12.0-16.0 [facility] Comment on above: Performed By: #### C BC ####[facility] [address] [place] [id number]. Holly Fisher IG # 0.03 10e3/ul Normal 0.00-0.03 [facility] Comment on above: Performed By: #### C BC ####[facility] [address] [place] [address]Dr. Holly Fisher IG % 0.5 % Normal 0.0-0.5 [facility] Comment on above: Performed By: #### C BC ####[facility] [address] [place] [address]Dr. Holly Fisher LYMPH # 1.5 103/ul Normal 1.2-3.8 [facility] Comment on above: Performed By: #### C BC ####[facility] [address] [place], [place] [address]Dr. Holly Fisher Lymphocytes/100 WBC (Bld) 24.3 % Normal 20.5-60.0 [facility] Comment on above: Performed By: #### C BC ####[facility] [address] [place] [address]Dr. Holly Fisher MANUAL DIFF REQ NO Normal [facility] Comment on above: Performed By: #### C BC ####[facility] [address] [place] [address]Dr. Holly Fisher MCH (RBC) [Entitic mass] 30.3 pg Normal 26.7-34.0 [facility] Comment on above: Performed By: #### C BC ####[facility] [address] [place], [place] [address]Dr. Holly Fisher MCHC (RBC) [Mass/Vol] 32.6 g/dL Normal 29.9-35.2 [facility] Comment on above: Performed By: #### C BC ####[facility] [address] [place] [id number]. Holly Fisher MCV (RBC) [Entitic vol] 93.0 fL Normal 81.0-99.0 [facility] Comment on above: Performed By: #### C BC ####[facility] [address] [place] [id number]. Holly Fisher MONO # 0.5 103/ul Normal 0.3-0.8 [facility] Comment on above: Performed By: #### C BC ####[facility] [address]hurt[address] [place] [address]Dr. Holly Fisher Monocytes/100 WBC (Bld) 7.3 % Normal 1.7-12.0 [facility] Comment on above: Performed By: #### C BC ####[facility] [address] [place], [place] [address]Dr. Holly Fisher NEUT # 4.1 103/ul Normal 1.4-6.5 [facility] Comment on above: Performed By: #### C BC ####[facility] [address] [place] [id number]. Holly Fisher Neutrophils/100 WBC (Bld) 64.5 % Normal 43.0-75.0 [facility] Comment on above: Performed By: #### C BC ####[facility] [address] [place] [address]Dr. Holly Fisher Platelet mean volume (Bld) [Entitic vol] 10.5 fL Normal 9.5-13.5 [facility] Comment on above: Performed By: #### C BC ####[facility] [address] [place] [id number]. Holly Fisher PLT 253 103/ul Normal 150-450 [facility] Comment on above: Performed By: #### C BC ####[facility] Led[address] [place], [place] [address]Dr. Holly Fisher RBC 4.42 106/ul Normal 4.20-5.40 [facility] Comment on above: Performed By: #### C BC ####[facility] [address] [place], [place] [address]Dr. Holly Fisher WBC 6.3 103/ul Normal 4.0-11.0 [facility] Comment on above: Performed By: #### C BC ####[facility] [address] [place], [place] [address]SqDr. Holly Fisher LIPID PROFILEon 03-05-2022 CHOL-HDL RATIO NORM SEE BELOW Normal [facility] Comment on above: Result Comment: 3.3 - 4.4 LOW RISK 4.4 - 7.1 AVERAGE RISK 7.1 - 11.0 MODERATE RISK >11.0 HIGH RISK Performed By: #### L IPID, CMP #### [facility] [address] [place] [address] [address] Holly Fisher Cholesterol [Mass/Vol] 263 mg/dL Critically high <=200 [facility] Comment on above: Performed By: #### L IPID, CMP #### [facility] [address] [place] [address] [address] Holly Fisher Cholesterol in HDL [Mass/Vol] 63 mg/dL Critically high 40-60 [facility] Comment on above: Performed By: #### L IPID, CMP #### [facility] [address] [place] [address] [address] Holly Fisher Cholesterol in LDL [Mass/Vol] 160.2 mg/dL Normal [facility] Comment on above: Performed By: #### L IPID, CMP #### [facility] [address] [place] [address] [address] Holly Fisher Cholesterol.total /Cholesterol in HDL [Mass ratio] 4.2 {ratio} Normal [facility] Comment on above: Performed By: #### L IPID, CMP #### [facility] [address] [place] [address] [address] Holly Fisher HDL NORMAL > or = 60 mg/dl - LO W CARDIOVASCULAR RISK <40 mg/dl - HIGH CARDIOVASCULAR RISK Normal [facility] Comment on above: Performed By: #### L IPID, CMP #### [facility] [address] [place] [address] [address] Holly Fisher LDL CALC NORMAL SEE BELOW Normal [facility] Comment on above: Result Comment: <100 mg/dl OPTIMAL 100 - 129 mg/dl NEAR OR ABOVE OPTIMAL 130 - 159 mg/dl BORDERLINE HIGH 160 - 189 mg/dl HIGH >190 mg/dl VERY HIGH Performed By: #### L IPID, CMP #### [facility] [address] [place], [place] [address] Dr. Holly Fisher Triglyceride [Mass/Vol] 199 mg/dL Critically high <=150 [facility] Comment on above: Performed By: #### L IPID, CMP #### [facility] [address] [place], [place] [address] Dr. Holly Fisher VLDL CALC 39.8 mg/dL Normal [facility] Comment on above: Performed By: #### L IPID, CMP #### [facility] [address] [place] [address] [address] Holly Fisher MG MAMM SCREEN 3D SHERRIE CADon 03-05-2022 MG MAMM SCREEN 3D SHERRIE CAD Patient: LETTY COFFEY Exam Date: 03/05/2022 : 1945 Gender:F Ordering : DR EMELY THOMAS M.D. Admission #: [id number] Family : Order #: [id number] CLICK HERE TO VIEW EXAM RADIOLOGY REPORT PROCEDURE: MAMMOGRAM SCREENING 3D BILATERAL CAD COMPARISON: MG MAMM SCREEN SHERRIE W CAD, 07/21/2019. MG MAMM SCREEN SHERRIE W CAD, 10/24/2020. INDICATIONS: Screening mammography Calculator Name NCI Breast Cancer Risk Assessment Tool 5 Year Breast Cancer Risk 1.60% Lifetime Breast Cancer Risk 3.70% Personal Breast Cancer No Personal Ovarian Cancer No Treatments None Family Cancers None LOCATION: [facility] BREAST COMPOSITION: Scattered areas fibroglandular density. FINDINGS: DIAGNOSTIC CATEGORY 1--NEGATIVE. NO CHANGE FROM COMPARISON ASSESSMENT. Scattered benign-appearing nodules are present. Scattered benign-appearing calcifications are present. Scattered benign-appearing lymph nodes are present. RIGHT BREAST: No significant suspicious finding. LEFT BREAST: No significant suspicious finding. RECOMMENDATIONS: ROUTINE MAMMOGRAM AND CLINICAL EVALUATION IN 12 MONTHS. PLEASE NOTE: A NORMAL MAMMOGRAM DOES NOT EXCLUDE THE POSSIBILITY OF BREAST CANCER. A CLINICALLY SUSPICIOUS PALPABLE LUMP SHOULD BE BIOPSIED. Dictated by: Yousuf Ortiz MD on 03/05/2022 at 09:53 Approved by: Yousuf Ortiz MD on 03/05/2022 at 09:55 Normal [facility] PROF 14(COMP METB)on 022 Albumin [Mass/Vol] 3.9 g/dL Normal 3.4-5.0 [facility] Comment on above: Performed By: #### L IPID, CMP #### [facility] [address] [place] [address] [address] Holly Fisher Albumin/Globulin [Mass ratio] 1.1 {ratio} Normal [facility] Comment on above: Performed By: #### L IPID, CMP #### [facility] [address] [place] [address] [address] Holly Fisher ALP [Catalytic activity/Vol] 54 U/L Normal 46-116 [facility] Comment on above: Performed By: #### L IPID, CMP #### [facility] [address] [place] [address] [address] Holly Fisher ALT [Catalytic activity/Vol] 22 U/L Normal 14-59 [facility] Comment on above: Performed By: #### L IPID, CMP #### [facility] [address] [place] [address] [address] Holly Fisher Anion gap [Moles/Vol] 12.5 mmol/L Normal [facility] Comment on above: Performed By: #### L IPID, CMP #### [facility] [address] [place] [address] [address] Holly Fisher AST [Catalytic activity/Vol] 14 U/L Critically low 15-37 [facility] Comment on above: Performed By: #### L IPID, CMP #### [facility] [address] [place] [address] [address] Holly Fisher Bilirubin [Mass/Vol] 0.4 mg/dL Normal 0.2-1.0 [facility] Comment on above: Performed By: #### L IPID, CMP #### [facility] [address] [place] [address] [address] Holly Fisher Calcium [Mass/Vol] 8.6 mg/dL Normal 8.5-10.1 [facility] Comment on above: Performed By: #### L IPID, CMP #### [facility] [address] [place] [address] [address] Holly Fisher Chloride [Moles/Vol] 106 mmol/L Normal 98-107 [facility] Comment on above: Performed By: #### L IPID, CMP #### [facility] [address] [place] [address] [address] Holly Fisher CO2 [Moles/Vol] 26.8 mmol/L Normal 21.0-32.0 [facility] Comment on above: Performed By: #### L IPID, CMP #### [facility] [address] [place] [address] [address] Holly Fisher Creatinine [Mass/Vol] 0.60 mg/dL Normal 0.55-1.02 [facility] Comment on above: Performed By: #### L IPID, CMP #### [facility] [address] [place] [address] Dr. Holly Fisher EGFR-AF NIGERIEN >60 Normal >=60 [facility] Comment on above: Performed By: #### L IPID, CMP #### [facility] [address] [place] [address] [address] Holly Fisher EGFR-NON AF NIGERIEN >60 Normal >=60 [facility] Comment on above: Performed By: #### L IPID, CMP #### [facility] [address] [place] [address] [address] Holly Fisher Globulin (S) [Mass/Vol] 3.4 g/dL Normal [facility] Comment on above: Performed By: #### L IPID, CMP #### [facility] [address] [place] [address] [address] Holly Fisher Glucose [Mass/Vol] 98 mg/dL Normal 74-106 [facility] Comment on above: Performed By: #### L IPID, CMP #### [facility] [address] [place] [address] [address] Holly Fisher Potassium [Moles/Vol] 4.3 mmol/L Normal 3.5-5.1 [facility] Comment on above: Performed By: #### L IPID, CMP #### [facility] [address] [place] [address] [address] Holly Fisher Protein [Mass/Vol] 7.3 g/dL Normal 6.4-8.2 [facility] Comment on above: Performed By: #### L IPID, CMP #### [facility] [address] [place] [address] [address] Holly Fisher Sodium [Moles/Vol] 141 mmol/L Normal 136-145 [facility] Comment on above: Performed By: #### L IPID, CMP #### [facility] [address] [place] [address] [address] Holly Fisher Urea nitrogen [Mass/Vol] 14.0 mg/dL Normal 7.0-18.0 [facility] Comment on above: Performed By: #### L IPID, CMP #### [facility] [address] [place] [address] [address] Holly Fisher Urea nitrogen/Creatini ne [Mass ratio] 23.3 mg/mg Normal [facility] Comment on above: Performed By: #### L IPID, CMP #### [facility] [address] [place] [address] [address] Holly Fisher XR DEXA BONE DENSITYon 03-05 XR DEXA BONE DENSITY EXAMINATION: XR DEXA BONE DENSITY, 03/05/2022 7:58 AM EDT HISTORY: Bone density finding COMPARISON: 2018, 2016, 2012 TECHNIQUE: Dual-energy X-ray absorptiometry (DEXA) bone density study performed for the axial skeleton. FINDINGS: Bone mineral density of the femurs measures 0.769 g/sq cm. 7% reduction from the prior exam. T score -1.9. WHO classification: Osteopenia Bone mineral density in the forearm radius measures 0.492 g/sq cm. T score -3.1. WHO classification: Osteoporosis IMPRESSION: Osteoporosis. High fracture risk Electronically authenticated by: YOUSUF ORTIZ Date: 2022-03-05 10:00 Normal [facility] History and Physicalon 04-27 HIM IP Note OR Emission Specialist Normal [facility] OPERATIVE REPORTon 7 [facility] : 49MED REC NO: [id number] ROOM:ACCOUNT NO: [id number] ADMISSION DATE: 04/27/17PHYSICIAN: EMRE STAPLETONDATE OF PROCEDURE: 04/27/2017PREOPERATIVE DIAGNOSES:1. Macular pucker, right eye.2. Pseudophakia, right eye.3. Retinal edema, right eye.POSTOPERATIVE DIAGNOSES:1. Macular pucker, right eye.2. Pseudophakia, right eye.3. Retinal edema, right eye.SURGEON: Dr. Emre Stapleton.ANESTHESIA: Local monitored anesthesia care.COMPLICATIONS: None.SURGERY PERFORMED:1. Pars plana vitrectomy.2. Membrane stripping and membranectomy.3. Partial fluid-air exchange, right eye.JUSTIFICATION: This is a very pleasant 71-year-old female who has ahistory of painless, progressive loss of vision in her right eye. Sheis pseudophakic with a macular pucker causing retinal edema anddistortion. The patient was apprised of the risks, benefits, andalternatives to surgery and signed the consent. She was taken to theoperating room where IV sedation was given and a retrobulbaranesthetic was provided with a 50:50 mixture of Marcaine andlidocaine. After good akinesia and anesthesia was established, thepatient was prepped and draped in usual sterile fashion. A wire lidspeculum was used to open upper lids of the right eye. A 23-gaugetrocars were placed in the temporal and superonasal quadrants 3 mmposterior to the limbus. The infusion cannula was placed in theinferotemporal trocar. This was directly visually inspected prior tobeing turned on. Core vitrectomy was then performed. The posteriorhyaloid was elevated from the surface of the optic nerve and thevitrectomy was performed out to the limits of visualization. ICG wasthen used to stain the periretinal membrane. Two minutes were allowedto elapse and the ICG was removed from the eye completing theperipheral vitrectomy simultaneously. The patient then had retinalforceps used to engage the membrane in a sokle-rdc-tonm technique andthe membrane was elevated from the surface of the macula and dissectedfrom around the fovea and off the macula out to the arcades.The peripheral retina was inspected. No peripheral breaks, tears, holes, or detachment were discovered. The patient had a partialfluid-air exchange performed and each of the trocars were removedrendering the eye air tight by pinching each site with pair of toothedforceps. Finally, the patient had Ancef solution placed over theright eye. The lid speculum was removed and the patient haderythromycin ointment and Cyclogyl drops placed over the right eye. Apatch and shield was placed over the right eye and the patient wastaken to the recovery room in good condition, having tolerated theprocedure well without complications.EMRE Llanes DABBSD:04/27/2017 9:59:31 CD/[id number]#: [id number] Doc#: [id number] [facility] Vital Signs Date Time Vital Sign Value Performing Clinician Facility 06-30-2023 09:15-0400 Body height 158.75 cm Emely Thomas Other [facility] 06-30-2023 09:15-0400 Body mass index (BMI) [Ratio] 30.95 kg/m2 Emely Thomas Other [facility] 06-30-2023 09:15-0400 Body temperature 96.5 [degF] Emely Thomas Other [facility] Other 06-30-2023 09:15-0400 Body weight 78.02 kg Emely Thomas Other [facility] Other 06-30-2023 09:15-0400 Diastolic blood pressure 76 mm[Hg] Emely Thomas Other [facility] Other 06-30-2023 09:15-0400 Systolic blood pressure 156 mm[Hg] Emely Thomas Other [facility] Other 04-13-2023 15:00-0400 Body height 158.75 cm Emely Jones [facility] Other 04-13-2023 15:00-0400 Body mass index (BMI) [Ratio] 31.49 kg/m2 Emely Thomas Other [facility] 04-13-2023 15:00-0400 Body weight 79.38 kg Emely Thomas Other [facility] 04-13-2023 15:00-0400 Diastolic blood pressure 78 mm[Hg] Emely Thomas Other [facility] 04-13-2023 15:00-0400 Systolic blood pressure 135 mm[Hg] Emely Thomas Other [facility] Other 03-18-2023 08:40-0400 Body height 158.75 cm Ej Thomas Other [facility] Other 03-18-2023 08:40-0400 Body mass index (BMI) [Ratio] 31.67 kg/m2 Ej Thomas Other [facility] 03-18-2023 08:40-0400 Body weight 79.83 kg Ej Thomas Other [facility] Other 03-18-2023 08:40-0400 Diastolic blood pressure 84 mm[Hg] Ej Thomas Other [facility] Other 03-18-2023 08:40-0400 Systolic blood pressure 134 mm[Hg] Ej Thomas Other [facility] Other 01-21-2023 11:00-0400 Body height 158.75 cm Emely Thomas Other [facility] Other 01-21-2023 11:00-0400 Body mass index (BMI) [Ratio] 32.21 kg/m2 Emely Thomas Other [facility] Other 01-21-2023 11:00-0400 Body weight 81.19 kg Emely Thomas Other [facility] 01-21-2023 11:00-0400 Diastolic blood pressure 82 mm[Hg] Emely Thomas Other [facility] Other 01-21-2023 11:00-0400 SaO2% (BldA) [Mass fraction] 97 % Emely Thomas Other [facility] 01-21-2023 11:00-0400 Systolic blood pressure 142 mm[Hg] Emely Thomas Other [facility] Other Encounters Encounter Date Encounter Type Care Provider Facility Start: 01-07-2024 End: 01-07-2024 ambulatory DUSTY D ZAHLER Not Available Start: 12-10-2023 End: 12-10-2023 ambulatory DUSTY D ZAHLER Not Available Start: 11-12-2023 End: 11-12-2023 ambulatory DUSTY D ZAHLER Not Available Start: 10-15-2023 End: 10-15-2023 ambulatory DUSTY D ZAHLER Not Available Start: 10-11-2023 End: 10-11-2023 ambulatory DUSTY D ZAHLER Not Available Start: 06-30-2023 End: 06-30-2023 ambulatory Emely Thomas Other [facility] Start: 06-30-2023 Office outpatient vi sit 15 minutes Emely Thomas [facility] Start: 05-18-2023 End: 05-18-2023 ambulatory Emely Thomas Other [facility] Start: 05-18-2023 Telephone encounter Emely Thomas [facility] Start: 05-13-2023 End: 05-14-2023 ambulatory [facility] Start: 05-13-2023 End: 05-13-2023 ambulatory [facility] Start: 04-16-2023 End: 04-17-2023 ambulatory [facility] Start: 04-13-2023 End: 04-13-2023 ambulatory Emely Thomas Other [facility] Start: 04-13-2023 Office outpatient vi sit 15 minutes Emely Thomas [facility] Start: 04-05-2023 End: 04-05-2023 ambulatory Ej Thomas Other [facility] Start: 04-05-2023 Telephone encounter Ej Thomas [facility] Start: 03-18-2023 End: 03-18-2023 ambulatory Ej Thomas Other [facility] Start: 03-18-2023 Office outpatient ne w 30 minutes Ej Thomas [facility] Start: 02-09-2023 End: 02-10-2023 ambulatory NARENDRANATH LAKSHMIPATHY . Facility:[facility] Start: 02-01-2023 ambulatory NARENDRANATH LAKSHMIPATHY . Facility:[facility] Start: 01-28-[address] EMELY THOMAS Facil ity:[facility] Start: 01-28-2023 End: 01-29-2023 ambulatory NARENDRANATH LAKSHMIPATHY . Facility:[facility] Start: 01-21-2023 End: 01-21-2023 ambulatory Emely Thomas Other [facility] Start: 01-21-2023 Office outpatient vi sit 15 minutes Emely Thomas [facility] Start: 01-12-2023 End: 01-12-2023 ambulatory NARENDRANATH LAKSHMIPATHY . Facility:[facility] Start: 12-31-2022 End: 01-01-[address] EMELY THOMAS Facility:[facility] Start: 12-28-2022 End: 12-28-[address] EMELY THOMAS Facility:[facility] Start: 12-24-2022 End: 12-25-[address] EMELY THOMAS Facility:[facility] Start: 10-07-2022 End: 10-08-2022 ambulatory SHAWNA RUIZ . Facility:[facility] Start: 09-03-2022 Encounter for preprocedural laboratory examination DR YULI LEES . [facility] Start: 09-01-2022 End: 09-01-[address] YULI LEES . Facility:[facility] Start: 08-28-2022 End: 08-29-[address] EMELY THOMAS Facility:[facility] Start: 08-28-2022 End: 08-29-2022 Encounter for preprocedural laboratory examination DR EMELY THOMAS Facility:[facility] Start: 08-11-2022 End: 08-11-[address] YULI LEES . Facility:[facility] Start: 08-08-2022 Encounter for preprocedural cardiovascular examination SHAWNA RUIZ . [facility] Start: 08-07-2022 End: 08-08-[address] EMELY THOMAS Facility:[facility] Start: 08-03-2022 End: 08-04-2022 ambulatory SHAWNA RUIZ . Facility:[facility] Start: 08-03-2022 End: 08-04-2022 Encounter for preprocedural cardiovascular examination SHAWNA RUIZ . Facility:[facility] Start: 07-30-2022 End: 07-31-[address] YULI LEES . Facility:[facility] Start: 06-30-2022 End: 06-30-[address] YULI LEES . Facility:[facility] Start: 06-26-2022 End: 06-26-[address] EMELY THOMAS Facility:[facility] Start: 06-25-2022 End: 06-26-2022 ambulatory SHAWNA RUIZ . Facility:[facility] Start: 06-12-2022 End: 06-13-[address] EMELY THOMAS Facility:[facility] Start: 06-09-2022 End: 06-09-[address] YULI LEES . Facility:[facility] Start: 05-19-2022 End: 05-20-[address] YULI LEES . Facility:[facility] Start: 05-01-2022 End: 05-02-[address] YULI LEES . Facility:[facility] Start: 04-28-2022 End: 04-29-[address] YULI LEES . Facility:[facility] Start: 03-05-2022 End: 03-06-[address] YOUSUF ORTIZ Facility:[facility] Start: 04-27-2017 End: 04-27-2017 Ambulatory EMRE STAPLETON [facility] Procedures Date Procedure Procedure Detail Performing Clinician Start: 04-27-2017 DISCHARGE PATIENT PATRICE SANTAMARIA DARA Start: 04-27-2017 BEDREST EMRE BYNUM Start: 04-27-2017 Continuous pulse oximetry EMRE STAPLETON Start: 04-27-2017 ENCOURAGE DEEP BREAT CHEMA AND COUGHING EMRE STAPLETON Start: 04-27-2017 NOTIFY PHYSICIAN (SPECIFY) EMRE STAPLETON Start: 04-27-2017 NURSING COMMUNICATION Jose STAPLETON Start: 04-27-2017 NURSING OXYGEN ORDERS/INSTRUCTIONS EMRE STAPLETON Start: 04-27-2017 VITAL SIGNS EMRE BYNUM Management of drug regimen Isaac Thomas Other Screening for malign ant neoplasm of colon Emely Thomas Other Plan of Treatment Date Care Activity Detail Author Start: 02-26-2023 ambulatory Ambulatory Facility:[facility] Payers Date Payer Category Payer Unknown [id number] 1957 [facility] [id number] 1957 Medicare [id number] 2.1 [id number] 1957 Unknown [id number] 1945 Unknown [id number] 2.16.84 0.1.906430.3.579.2.593 1945 Unknown [id number] 2.16.84 0.1.300393.3.579.2.593 1945 Unknown [id number] 2.16.84 0.1.008271.3.579.2.593 1945 Unknown [id number] 2.16.84 0.1.164251.3.579.2.593 1945 Unknown [id number] 2.16.84 0.1.797737.3.579.2.593 1945 Unknown [id number] 2.16.84 0.1.000664.3.579.2.593 1945 Unknown [id number] 2.16.84 0.1.665818.3.579.2.593 1945 Unknown [id number] 2.16.84 0.1.391071.3.579.2.593 1945 Unknown [id number] 2.16.84 0.1.774639.3.579.2.593 1945 Unknown [id number] 2.16.84 0.1.438081.3.579.2.593 1945 Unknown [id number] 2.16.84 0.1.734724.3.579.2.593 1945 Unknown [id number] 2.16.84 0.1.795825.3.579.2.593 1945 Unknown [id number] 2.16.84 0.1.473527.3.579.2.593 1945 Unknown [id number] 2.16.84 0.1.982272.3.579.2.593 1945 Unknown [id number] 2.16.84 0.1.908174.3.579.2.593 1945 Unknown [id number] 2.16.84 0.1.475325.3.579.2.593 1947 Unknown [id number] 2.16.84 0.1.855570.3.579.2.593 1945 Unknown [id number] 2.16.84 [id number] 1945 Unknown [id number] 2.16.84 0.1.971019.3.579.2.593 1945 Unknown [id number] 2.16.84 0.1.579877.3.579.2.593 1947 Unknown [id number] 2.16.84 0.1.972535.3.579.2.593 1947 Unknown [id number] 2.16.84 0.1.424614.3.579.2.593 1947 Unknown [id number] 2.16.84 0.1.180852.3.579.2.593 1947 Unknown [id number] 2.16.84 0.1.727282.3.579.2.593 1947 Unknown [id number] 2.16.84 0.1.185039.3.579.2.593 1947 Unknown [id number] 2.16.84 0.1.850580.3.579.2.1259 1947 Unknown [id number] 2.16.84 0.1.492902.3.579.2.1259 1947 Unknown [id number] 2.16.84 0.1.358167.3.579.2.1259 1947 Unknown [id number] 2.16.84 0.1.919361.3.579.2.1259 1947 Unknown [id number] 2.16.84 0.1.368355.3.579.2.1259 Social History Date Type Detail Facility Unknown if ever smoked [facility] Other Sex Assigned At Sex Assigned At Bir th [facility] Other Clinical Notes 03-05-2022 to 06-30-2023 Note Date & Type Note Facility 06-30-2023 Evaluation note Encounter Date Diagnosis Assessment Notes Jun, Acute non-recurrent maxillary sinusitis (ICD-10 - J01.00) Finish antibiotic, stay hydrated. Ok for NSAIDs for head pressure. Call if no improvement. [facility] Other 08-17-2023 NoteSUBJECTIVE: Chief complaint: Back and right leg pain. History of present illness: Consultation referred by pain management, Dr. Layton of [facility]. Patient reports chronic low back pain for many years that is worse with movement and walking and worse as the day progresses. Somewhat better with rest. Over the past 6 months, she has also been having pain into her right groin, anterior thigh and lateral calf as well. Has also been having some numbness and tingling of the lateral calf for the past 6 months. She denies weakness, falls, imbalance, bowel or bladder changes. Has done physical therapy for her back previously without improvement. She has had injections without substantial improvement. Has tried medications, including baclofen and Zonegran, without lasting or substantial improvement. Has never had previous back surgery. Review of systems: Constitutional: Denies fever, chills. Head: Denies headaches. Eyes: Denies vision change. Ears: Denies change in hearing. Nose/throat: Denies dysphagia. Cardiovascular: Denies chest pain. Respiratory: Denies cough, shortness of breath. Extremities: Denies edema. Genitourinary: Denies incontinence or retention. Gastrointestinal: Denies constipation, diarrhea, incontinence, nausea, vomiting. Neurologic: Denies weakness, reports numbness, tingling. Denies seizures, unsteady gait, falls. Musculoskeletal: Denies neck pain, reports back pain. Past Medical History: Diagnosis Date Osteoporosis Scoliosis Past Surgical History: Procedure Laterality Date APPENDECTOMY HYSTERECTOMY TONSILLECTOMY Social History Tobacco Use Smoking status: Never Smokeless tobacco: Never Substance Use Topics Alcohol use: Never Drug use: Never Family History Problem Relation Name Age of Onset Other (heart issues) Mother Stomach cancer Father OBJECTIVE: Medications: aspirin baclofen CALCIUM-VITAMIN D3 ORAL cholecalciferol glucosamine-chondroitin capsule losartan multivitamin niacin omega-3 capsule PRESERVISION AREDS-2 ORAL Prolia syringe VITAMIN K2 ORAL zonisamide Current Outpatient Medications: aspirin 81 mg EC tablet, Take 81 mg by mouth., Disp: , Rfl: baclofen (Lioresal) 10 mg tablet, TAKE 1/2 TO 1 TABLET BY MOUTH 2 TIMES A DAY, Disp: , Rfl: CALCIUM-VITAMIN D3 ORAL, Take 600 mg by mouth., Disp: , Rfl: cholecalciferol (D3-5) 5,000 Units tablet, Take 7,000 Units by mouth., Disp: , Rfl: denosumab (Prolia) 60 mg/mL syringe, Inject 60 mg under the skin 1 (one) time., Disp: , Rfl: glucosamine/chondr aleman A sod (glucosamine-chondroitin) 167-133 mg capsule, Take by mouth., Disp: , Rfl: losartan (Cozaar) 25 mg tablet, Take 25 mg by mouth in the morning., Disp: , Rfl: multivitamin tablet, Take 1 tablet by mouth in the morning., Disp: , Rfl: niacin 500 mg ER capsule, Take 500 mg by mouth., Disp: , Rfl: omega-3 1,000 mg capsule capsule, Take 360 mg by mouth., Disp: , Rfl: vit C/E/Zn/coppr/lutein/zeaxan (PRESERVISION AREDS-2 ORAL), Take by mouth., Disp: , Rfl: VITAMIN K2 ORAL, Take by mouth., Disp: , Rfl: zonisamide (Zonegran) 50 mg capsule, Take 100 mg by mouth at bedtime., Disp: , Rfl: Allergies: No Known Allergies Exam: Vitals reviewed: No intake/output data recorded. No intake/output data recorded. Accompanied by daughter Alda vieyra. Constitutional: In no apparent distress. Cardiovascular: Heart sounds regular rate and rhythm without appreciable murmur. Chest: Lung sounds clear to auscultation bilaterally. Respirations regular and nonlabored. Abdomen: Soft, nontender, nondistended. Extremities without edema. Skin warm and dry without pallor. Neuro: GCS 15/15. Attention and memory intact. No dysarthria or aphasia. Cranial Nerves: Conjugate gaze. PERRLA 3 mm. EOMI. No nystagmus. Facial sensation intact V1, V2, V3 bilaterally. Facial expression symmetrical bilaterally. Hearing intact to conversation. Uvula and palate elevates symmetrically. Trapezii symmetrical bilaterally. Tongue midline. Coordination: Finger to nose testing without dysmetria bilaterally. Sensation: Intact to light touch C5-T1 and L2-S1 dermatomes bilaterally. Musculoskeletal: Deltoid 5/5 bilaterally. Triceps 5/5 bilaterally. Biceps 5/5 bilaterally. Finger flexors 5/5 bilaterally. Finger extensors 5/5 bilaterally. Hip flexors 5/5 bilaterally. Knee flexors and extensors 5/5 bilaterally. Ankle dorsal flexors 5/5 bilaterally. Ankle plantar flexors 5/5 bilaterally. Muscle tone without hyper or hypotonicity. Muscle bulk appropriate for age. Gait: Steady. Ambulatory without device. Cervical spine: No spinous process or paraspinal tenderness to palpation. Thoracolumbar spine: Kyphosis and scoliosis appreciated. Deep Tendon Reflexes: Triceps 2+ bilaterally. Biceps 2+ bilaterally. Brachioradialis 2+ bilaterally. Patellar 2+ bilaterally. Babinski absent bilaterally. Labs: No results found for any pre (more content not included)...[facility]08-17-2023 NoteSubjective: HPI: Letty Coffey is a 77 year-old woman who reports right-sided back pain. The pain has been present for years. She says the pain radiates down her right leg. She describes the pain as being tight and causing tingling in her right leg. Standing and walking make the pain worse. The pain was ranked an 8/10. The pain has not been alleviated by zonisamide, ablation, an epidural, or physical therapy. Objective: Exam: Neurology: CN II-XII in tact. Pupils equal, round, and reactive to light and accomodation. Strength in tact in all four extremities. Sensation in tact in all four extremities. Coordination in tact. Cardio: No murmurs heard on auscultation. No jugular venous distention observed. PMI palpated at 5th intercostal space. Pulmonary: Chest wall expansion observed on respiration. Lung sounds clear and audible bilaterally. No crackles or wheezes. Assessment: Asia Pineda presents with back pain and right-sided leg pain. Plan: Obtain and assess x-rays of back. [facility]* Encounter Date Diagnosis Assessment Notes Treatment Notes Treatment Clinical Notes Mar, Pain in left shoulder (ICD-10 - M25.512) Under sterile condition and local anesthetic, left shoulder joint injected with 40mg Depo Medrol and Lidocaine using a posterior approach. Patient tolerated well, no complication. Pt would like to wait on MRI or ortho eval as she is busy with other appts right now. [facility] Other 06-22-2023 Evaluation note* Encounter Date Diagnosis Assessment Notes Treatment Notes Treatment Clinical Notes Feb, Scoliosis of thoracolumbar spine, unspecified scoliosis type (ICD-10 - M41.9) I independently reviewed the plain x-ray of the lumbar spine and the MRI of the lumbar spine showing a severe scoliosis with the spondylitic spine and numerous levels of foraminal narrowing.The patient has limited disability mostly tingling below the knee some hip pain with prolonged walking. At this point I am not certain she is a good candidate for surgical intervention she would have an extensive cervical fusion probably T11-S1. I discussed the findings with the patient she understands and agrees I would recommend continued pain management for symptomatic relief as long as possible before considering surgical intervention. [facility] Other 05-04-2023 NoteCONSULTATION CONSULTATION DATE: 01/28/2023 TO: Emely Thomas M.D. CHIEF COMPLAINT: Includes right lower leg pain, right lower back pain. HISTORY: She reports the pain as being 5-7/10 pain, sharp in character with a burning component, increased with activities such as standing and walking. She feels most comfortable in the semi-recumbent position. She denies any change in bowel and bladder habits or new sensorimotor changes in the lower extremities. EXAM: Her examination today is notable for the patient having hypoesthesia along the right L5 dermatome, mild weakness of the right EHL, approximately 3/5 strength in the right EHL and a straight leg raise positive at approximately 90 degrees. She had no clinical signs consistent with myelopathy involving the lower extremities. She has a fair amount of myofascial spasm of the right gluteus medius muscle. IMPRESSION: Our impression is patient appears to have residual pain, possibly to right L5 radicular process. RECOMMENDATIONS: I have placed her on Zonegran 50 mg at h.s. I have asked her trial aquatic therapy and to proceed with a lumbosacral MRI without contrast. We will see her back in the office after she undergoes the imaging study. As part of providing excellent, safe, comprehensive care, the following was completed at our patient's visit: 1. A medication reconciliation and review to ensure accurate knowledge of current/active medications, including asking our patients to inform us about any tcbe-oqa-gyewhla medications or herbal remedies/nutritional supplements/alternative remedies. 2. A review to specifically ensure our patients have had annual screening for: elevated body mass index (BMI, see intake chart for exact total), tobacco use, screening for depression, and screening for unhealthy alcohol use. When screening is concerning, patients are provided with education and the specific recommendation to discuss the concerning health issue and treatment options with their primary care provider.[facility] [id number] Evaluation note * Encounter Date Diagnosis Assessment Notes Treatment Notes Treatment Clinical Notes Dec, Essential (primary) hypertension (ICD-10 - I10) new problem. rx handwritten. f/u 6 weeks. Dec, Other chronic pain (ICD-10 - G89.29) Dec, Pain in left shoulder (ICD-10 - M25.512) PT order given to pt. [facility] Other 04-06-2023 NoteCONSULTATION CONSULTATION DATE: 12/31/2022 TO: Emely Thomas M.D. CHIEF COMPLAINT: Includes right lower buttock pain, hip pain. HISTORY: She rates her pain as being 5-7/10 pain, sharp in character with a burning component. It seems to increase with light touch to the area. She also reports standing, walking and performing transitioning maneuvers are also quite uncomfortable. She feels most comfortable in the semi-recumbent position. She denies any change in bowel and bladder habits or new sensorimotor changes in the lower extremities. EXAM: Her examination is notable for patient having no appreciable radiculopathy or myelopathy involving the lower extremities. She did have dysesthesia and hyperesthesia overlying the distribution of the lateral cutaneous branch of the iliohypogastric nerve. This is associated with myofascial spasm and tenderness of the right gluteus medius muscle. 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 RECOMMENDATIONS: I recommend having the patient start baclofen 10 mg pills, half a pill to one pill b.i.d. for myofascial dysfunction, and to proceed with a diagnostic injection of the lateral cutaneous branch of the iliohypogastric nerve on the right side. As part of providing excellent, safe, comprehensive care, the following was completed at our patient's visit: 1. A medication reconciliation and review to ensure accurate knowledge of current/active medications, including asking our patients to inform us about any wmya-foi-qdkfzbb medications or herbal remedies/nutritional supplements/alternative remedies. 2. A review to specifically ensure our patients have had annual screening for: elevated body mass index (BMI, see intake chart for exact total), tobacco use, screening for depression, and screening for unhealthy alcohol use. When screening is concerning, patients are provided with education and the specific recommendation to discuss the concerning health issue and treatment options with their primary care provider.[facility] [id number] Note CONSULTATION PROCEDURE DATE: 10/07/2022 PREOPERATIVE DIAGNOSIS: Right gluteal spasm. POSTOPERATIVE DIAGNOSIS: Right gluteal spasm. PROCEDURE: Right gluteal trigger point injection. Subsequent to obtaining informed consent, the patient was placed in the upright standing forward flexion position. Alcohol prep was used to sterilize the site. A 25 gauge needle with 0.125% Marcaine and 40 mg of Kenalog was placed to rest inside the trigger zone. Negative heme. Medication was injected in a slow, fan-like pattern. Patient tolerated the procedure well.[facility] [id number] NoteCONSULTATION CONSULTATION DATE: 10/07/2022 HISTORY OF PRESENT ILLNESS: This is a pleasant, 77-year-old female who returns to the clinic status post bilateral RFA of L2, L3 and L4, L5. This was completed on 09/01/2022 that afforded her 75% relief overall. She is still having some right gluteal pain with occasional radiating pain down the lateral and anterior aspect of her thigh. It is aggravated by prolonged standing, walking, bending, stairs and lifting. The use of heat, sleeping and sitting does decrease her pain. Medications include [id number] Tylenol and the use of Salonpas patches. She denies any new vasomotor weakness. Patient's REVIEW OF SYSTEMS / PAST MEDICAL HISTORY / ALLERGIES and IMAGES have been reviewed and noted in the chart. PHYSICAL EXAM: VITAL SIGN: Blood pressure is 161/92. Heart rate is 84. Temperature is 97.5. She is 5'1 , weighs 81 kg. GENERAL IMPRESSION: Pleasant, appropriate, no acute distress. FOCUSED EXAM - BACK: Range of motion is functional in lateral rotation and flexion/extension. Paravertebral muscles are non-spasmodic. Right gluteal muscle is taut with a trigger point identified to the medial aspect of the SI region. Compression reproduces patient's pain symptomatology. MUSCULOSKELETAL: Motor is intact, 4/5 bilaterally. Patient walks unassisted with a steady gait. NEUROLOGICALLY: Patchy hypoesthesia noted along the L4-5 distribution. Bilateral reflexes, patellar and Achilles are +2. DIAGNOSIS: Right gluteal spasm, lumbar degenerative disc disease, lumbar spondylosis, lumbar neuritis and lumbar scoliosis. PLAN: Patient will receive a right gluteal trigger point injection in the office, which she does consent to. Stretches were demonstrated and encouraged to do twice daily in addition to heat application. Patient will be seen in the clinic in three months' time unless otherwise indicated. Patient agrees with this plan.[facility] [id number] NoteCONSULTATION CONSULTATION DATE: 07/30/2022 This is a 77-year-old female returning to the clinic status post #2 bilateral MBB of L2, L3 and L4, L5 completed on 06/30/2022. The patient states she received 100% relief for approximately 3 hours. Today at rest she reported 3 out of 10 pain which does increase to 6 out of 10 with activities. Activities such as pushing, pulling, standing walking, housework, lifting and bending aggravate her pain. Resting and lying down decrease her pain. She currently has not tried any heat or ice. She is complaining today of her baseline lower back pain, but also right-sided buttock and hip pain. Medications include Tylenol, Advil and a multivitamin. She denies any recent falls or vasomotor changes. REVIEW OF SYSTEMS, PAST MEDICAL HISTORY, ALLERGIES AND IMAGES: Have been reviewed and noted in the chart. PHYSICAL EXAM: VITAL SIGNS: Blood pressure 160/84, heart rate is 69, temperature is 96.9. Height is 5'1 , weighs 80.5 kg. GENERAL APPEARANCE: Pleasant, appropriate and in no acute distress. FOCUSED EXAM: BACK: Range of motion is guarded, lateral rotation and flexion/extension. Paravertebral muscles are non-spasmodic. Kris's point is mildly tender to the right with radiating pain to the right hip. Linda's and compression mildly tender. Reproduction of spinoaxial pain upon compression of the lower lumbar facets of L2, L3 and L4, L5 which does not radiate below the knees. MUSCULOSKELETAL: Motor is intact, 4 out of 5 bilaterally. The patient does not use and assistive device. Ambulates in a slow but steady gait. NEUROLOGICAL: Radicular sensory is intact. Negative polyneuropathy, +2 bilateral patella and Achilles reflexes. DIAGNOSIS: Lumbar degenerative disk disease, lumbar spondylosis and dextroscoliosis, spinoaxial lower back pain. PLAN: We will authorize to move forward with radiofrequency ablation starting on the right side and subsequently move to the left of L2, L3, and L4, L5. Vitamin compliance is good and was encouraged to continue with that as well. Exercise and stretching were encouraged as well. The patient agrees with the plan of care. She would like to move forward, she will be followed up at the office thereafter.[facility] [id number] NoteCONSULTATION CONSULTATION DATE: 06/25/2022 HISTORY OF PRESENT ILLNESS: This is a very pleasant, 76-year-old female returning to the clinic status post #1 bilateral MBB right sided L1, L2 and L3, L4 and left sided L2, L3 and L4, L5. Patient states she had zero relief to her right side, but 100% relief to her left side, which is ongoing. Patient is reporting right lower lumbar pain to the right level of the gluteal fold that radiates posteriorly down her left leg, mid hamstring. She describes it as sharp and achy. It is aggravated by twisting, pushing, standing, walking, stairs and bending. She currently does not use heat or ice. Medications include Tylenol Arthritis, Prolia, multivitamin, Advil p.r.n. and Miacalcin spray. Patient denies any new pain pattern or vasomotor changes. Patient's REVIEW OF SYSTEMS / PAST MEDICAL HISTORY / ALLERGIES and IMAGES have been reviewed and they are noted on the chart. PHYSICAL EXAM: VITAL SIGNS: Blood pressure 150/86, heart rate is 72. Temperature is 97.5. She is 5'1 1/2 , weighs 80 kg. GENERAL IMPRESSION: Pleasant, appropriate, no acute distress. FOCUSED EXAM - BACK: Patient does have severe dextroscoliosis. Paravertebral muscles are non-spasmodic. Upon palpation, spinal axial pain is reproduced along right sided L2, L3 and L4, L5 which radiates to her right gluteal fold and posteriorly lower leg just above the knee. Left sided spinal axial pain is reproduced along L2, L3 and L4, L5 to direct compression. Fullness palpated at the facets bilaterally, indicative of facet arthropathy, lumbar spondylosis. Kris's point non-tender. Negative FABERs and compression test. MUSCULOSKELETAL: Muscle atrophy is noted bilateral lower extremities. Patient does walk with a slight forward flexion stance. She does not use an assistive device. NEUROLOGICAL: Radicular sensory is intact. Negative polyneuropathy. +1 bilateral patellar reflexes. DIAGNOSIS: Lumbar degenerative disc disease, lumbar spondylosis, dextroscoliosis, L1-L3 lumbar wedge fracture. PLAN: Upon examination, we will move levels and start a #1 MBB to the right side of L2, L3 and L4, L5. We will hold off on the #2 MBB on the left side at this time. I did instruct the patient to use low dose Advil daily 400 mg to 600 mg daily with food. She was encouraged to use a menthol heat rub as well as heat application to her lower back in addition to extension exercises. She is compliant with her vitamin regimen, is encouraged to continue. She will be brought back in the clinic post procedure and patient is in agreement with this plan.[facility] [id number] NoteCONSULTATION CONSULTATION DATE: 05/19/2022 CHIEF COMPLAINT: Right hip pain, low back pain, right leg pain. HISTORY OF PRESENT ILLNESS: This is a very pleasant, 76-year-old female who has severe rotoscoliosis of her lumbar spine. X-rays were reviewed with the patient today. The patient describes it as a 3/10, a sharp pain. Pushing/pulling activities, walking, housework, ADLs aggravate the pain. Sitting down mitigates the pain. The patient states she has been decreasing her activity gradually to the point where she cannot participate with her children to the level she would like. The patient currently takes nutritional multivitamins and supplements, which has afforded her good relief. The patient is to start Prolia in the near future, under the care of Dr. Emely Thomas, which I would strongly suggest she proceeds with, given the stat of the osteopenia and osteoporosis that is noted in her lumbar spine. The patient's PAST MEDICAL HISTORY / SURGICAL HISTORY / REVIEW OF SYSTEMS are noted on the chart, along with the MEDICATION LIST / ALLERGIES and RADIOLOGICAL IMAGES. X-ray is significant for dextrorotoscoliosis. PHYSICAL EXAM: GENERAL: Upon physical examination, this is a very pleasant, cooperative female, who does not appear to be in any acute distress. The patient ambulates without any assistive devices; however, the patient needs to use a cane. VITAL SIGNS: Stable at 145/84 with a heart rate of 73. At a height of 5'1 , the patient weighs 79 kg. FOCUSED EVALUATION: The patient has increasing difficulty with her breath. This would be secondary to the restrictive lung secondary to the scoliosis. Significant jump response is noted upon palpation along the lumbar paravertebrals. These are defined at the thoracolumbar region on her right side and the lumbosacral area on the left side. Architecturally, it is difficult to ascertain. ABDOMEN: Soft, non-distended. EXTREMITIES: Global atrophy is present in her lower extremities bilaterally. The patient once again functions and ambulates without any supportive mechanism. NEUROLOGICALLY: Hypoesthesia is present along L2-L4 distribution, right hand side greater than left hand side. PSYCHIATRICALLY: Affect is appropriate. The patient is a very positive individual. IMPRESSION: Severe dextrorotoscoliosis, osteopenia, osteoporosis, lateral listhesis, lumbar spondylosis, muscle atrophy, sarcopenia secondary to chronic low back pain. PLAN: We will start the patient on Miacalcin nasal spray. We have encouraged the patient to proceed with the Prolia, especially given the fact that she has been taking her calcium, magnesium and the Vitamin D3. In addition to this, we will schedule the patient for a diagnostic lumbar medial branch block on the right hand side at the level of L1-L2 and L3-L4 on the right hand side. On the left hand side, it will be at the level of L2-L3 and L4-L5. The patient understands and would like to proceed. CC: Emely Thomas M.D.[facility] [id number] NoteCONSULTATION PROCEDURE DATE: 04/28/2022 PREOPERATIVE DIAGNOSIS: Right gluteal spasm, right lumbar erector spinae muscle spasm. PROCEDURE: Subsequent to obtaining informed consent, the patient was placed in the prone position. Alcohol prep was used to sterilize the site. A 25 gauge needle was used advanced and it comes to rest along the right gluteal and lumbar erector spinae muscle. Marcaine 0.125% along with Kenalog 20 mg are injected in fan patterns on two separate sites. Negative heme. The patient tolerates the procedure well, without any overt complication. Will be followed up in the office.[facility] [id number] NoteCONSULTATION CONSULTATION DATE: 04/28/2022 CHIEF COMPLAINT: Right hip pain. HISTORY OF PRESENT ILLNESS: This is a very pleasant, 76-year-old female who has been referred to us by Dr. Emely Thomas. The patient has had chronic pain, 5+ years. Sometimes the pain goes into her legs. The patient also has right hip pain. The right hip pain is the most problematic to her at present. She rates the pain as a 2/10. The patient is a very active individual. She ambulates without any assistive devices. Activities such as pushing, pulling, lifting, standing, walking, vacuuming, bending, climbing stairs, activities aggravate the patient's pain. Laying down mitigates the pain as does transitioning. Sitting mitigates the pain. The patient takes Advil on a p.r.n. basis, Tylenol Arthritis, fish oil, glucosamine and calcium with Vitamin D3. The patient is on Evista, a bisphosphonate for her bones, and is considering the possibility of changing over to Prolia under the care of Dr. Thomas. The patient has x-rays of the hips bilaterally which show early arthritic changes. The inferior post of the lumbar spine, we are able to see a severe scoliotic curve. No x-ray of the lumbar spine is available. The patient's PAST MEDICAL HISTORY / SURGICAL HISTORY / REVIEW OF SYSTEMS are noted on the chart, along with the MEDICATION LIST / ALLERGIES and RADIOLOGICAL IMAGES. PHYSICAL EXAMINATION: GENERAL APPEARANCE: Upon physical examination, this is a pleasant, cooperative female, who does not appear to be in no acute distress. VITAL SIGNS: Her blood pressure is elevated at 169/96 with a heart rate of 85. At a height of 5'1 1/2 , the patient weighs 79 kg. HEAD: Atraumatic, normocephalic. NECK: No crepitus is noted. HEART: No orthopnea is present. LUNGS: Non-labored breathing. ABDOMEN: Soft. BACK: Significant scoliotic curve is noted to the levorotoscoliosis. EXTREMITIES: Valgus deformity of the left ankle is noted, inversion. MUSCULOSKELETAL: Intact in the lower extremities at 5/5. NEUROLOGICALLY: No radicular symptomatology is present. PSYCHIATRICALLY: Affect is appropriate. IMPRESSION: Hypertension, right hip pain, osteoarthritis of right hip, right gluteal spasm, severe rotoscoliosis, lumbar paravertebral spasm. PLAN: Given the patient's age, we have also suggested, along with the calcium, for the patient to add Vitamin D3 4000 units a day, along with Vitamin K2 and magnesium glycinate. We will hold off placing the patient on a muscle relaxant and see how she responds to magnesium glycinate. X-ray of the lumbar spine will be ordered; AP, lateral and extension/flexion. The patient has limited range; however, functions very well around it. With regards to her right gluteal pain and lumbar pain, we will perform right lumbar trigger point along the erector spinae and gluteal muscles in office today. The patient understands and would like to proceed. CC: Emely Thomas M.D.[facility] [id number] NotePROCEDURE: XR HIP RT 2 3V W PELVIS COMPARISON: None. HISTORY: Arthropathy FINDINGS: BONES:No acute fracture or dislocation. Mild osteoarthropathy with marginal osteophyte formation. 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 No visible soft tissue swelling. EFFUSION:None visible. OTHER: Negative. 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 Electronically authenticated by: YOUSUF ORTIZ Date: 2022-03-05 10:09[facility] CenterEvaluation noteNo InformationNoBut[facility] [employer] Other History general Narrative - Reported* Type Description Date Medical History Osteopenia Medical History COVID Medical History Hyperlipemia Medical History Menopause Medical History Cardiac murmur Medical History Elevated blood pressure reading Medical History Hip pain, right Medical History Medication management Surgical History APPENDECTOMY Surgical History ERINN AND BSO Surgical History TONSILLECTOMY Surgical History TYMPANOPLASTY Surgical History CHOLESTEOTOMA Surgical History COLONOSCOPY Hospitalization History SEE SURGICAL HX [facility] [employer] Other History general Narrative - Reported* Type Description Date Medical History Osteopenia Medical History COVID Medical History Hyperlipemia Medical History Menopause Medical History Cardiac murmur Medical History Elevated blood pressure reading Medical History Hip pain, right Medical History Medication management Medical History Arthritis Surgical History APPENDECTOMY Surgical History ERINN AND BSO Surgical History TONSILLECTOMY Surgical History TYMPANOPLASTY Surgical History CHOLESTEOTOMA Surgical History COLONOSCOPY Surgical History hysterectomy Surgical History ear growth surgery Hospitalization History SEE SURGICAL HX [employer] Other Summary Purpose Family History No Family History Records FoundNo Family History Records FoundNo Family History Records FoundNo Family History Records Found Advance Directives No Advanced Directives Records FoundNo Advanced Directives Records FoundNo Advanced Directives Records FoundNo Advanced Directives Records Found Additional Source Comments INFORMATION SOURCE (unrecogn ized section and content) DATE CREATED AUTHOR 03/23/2018 [facility] DATE CREATED AUTHOR AUTHOR'S ORGANIZ ATION 02/10/2023 [facility] DATE CREATED AUTHOR AUTHOR'S ORGANIZ ATION 05/19/2023 [facility] DATE CREATED AUTHOR AUTHOR'S ORGANIZ ATION 01/08/2024 [facility] EPIC REASON FOR VISIT (unrecogniz ed section and content) BP Check UpLumbar spondylosi smessageCHECK UPrefillSinus Infection FOR RECORDS PERTAINING TO PATIENTS WHO ARE OR HAVE BEEN ENROLLED IN A CHEMICAL DEPENDENCY/SUBSTANCEABUSE PROGRAM, SOME INFORMATION MAY BE OMITTED. This clinical summary was aggregated from multiple sources. Caution should be exercised in using it in the provision of clinical care. This summary normalizes information from multiple sources, and as a consequence, information in this document may materially change the coding, format and clinical context of patient data. In addition, data may be omitted in some cases. CLINICAL DECISIONS SHOULD BE BASED ON THE PRIMARY CLINICAL RECORDS. [employer] provides no warranty or guarantee of the accuracy or completeness of information in this document.
[2024-01-25 07:59] VITALS: BP 133/85; PULSE 76; TEMP 36.3; O2SAT 98
[2024-01-25 08:45] VITALS: BP 174/83; BP 175/77; PULSE 71; PULSE 75; O2SAT 95; O2SAT 96
[2024-01-25] MEDS: METHYLPREDNISOLONE ACETATE 80 MG/ML VIAL INJ (08:47)
[2024-01-25] MEDS: 0.9 % SODIUM CHLORIDE 10 ML SYRINGE - SALINE FLUSH 2 ML INJ (08:47)
[2024-01-25] MEDS: BUPIVACAINE HCL 0.25% PF 25 MG/10 ML VIAL 2 ML INJ (08:47)
[2024-01-25] MEDS: IOHEXOL 240 MG/ML - 10 ML VIAL 12 MG INJ (08:47)
[2024-01-25] MEDS: LIDOCAINE HCL 2% PF 100 MG/5 ML VIAL 3 ML INJ (08:47)
--- NOTE | 2024-01-25 09:09 | W.PM.PROCNOT ---
Date of procedure: 01/25/24 Pre-op diagnosis: lumbar radiculopathy Post-op diagnosis: same as pre-op Procedure: Caudal Epidural Steroid Injection With catheter advancement Pre-operative diagnosis includes Radiculopathy, Postoperative diagnosis same, Under fluoroscopic guidance Solution used for the injection is Marcaine 0.25% Depo-Medrol 80 mg total of 5ml Omnipaque 3cc,3ml total, 1ml was used for injection to confirm needle tip placement and catheter tip placement within the epidural space. catheter was removed with the tip intact. Anesthesia: local anesthesia using 2% lidocaine, total no more than 5 mL. Timeout process compliant After obtaining informed consent .the patient was brought to the procedure room .placed in the prone position . the area was prepped and draped in a sterile fashion utilizing betadine. 25 gauge needle was used to create a skin wheal over the sacral hiatus identified under fluoroscopy. 17 gauge touhy needle was inserted over the anesthetized area and directed to the [place] hiatus under fluoroscopic guidance . after piercing the sacrococcygeal ligament. Confirmation of needle tip placement within the epidural space was accomplished with injection of contrast solution. epidural catheter was advanced to the L5 level .catheter placement confirmed with injection of contrast solution . the steroid solution was then injected .needle and catheter was removed post procedurally. patient transferred to recovery area in stable condition. Discharged home after meeting criteria. Anesthesia: Local Surgeon: Hayes Layton Condition: stable
== END 2024-01-25 08:52 | disposition home or self-care (01) ==
LOC: SURGOUT 07:36
PROVIDERS: PCP Nurse Practitioner Family; Visit Provider Anesthesiology Pain Medicine
DX: M54.16 Radiculopathy, lumbar region (principal)
CPT/HCPCS: 62323; J1010; Q9966

== ENCOUNTER 2024-02-02 08:18 | Outpatient (OUT) | payer MEDICARE, BC, SELFPAY ==
[2024-02-02 08:45] LABS: Basophils Absolute Auto 0.1 10^3/uL (0.0-0.1); Basophils Percent Auto 0.9 % (0.2-2.0); Eosinophils Absolute Auto 0.1 10^3/uL (0.0-0.7); Eosinophils Percent Auto 1.7 % (0.9-7.0); Hematocrit 38.6 % (36.0-48.0); Hemoglobin 12.8 g/dL (12.0-16.0); Immature Granulocytes Abs Auto 0.05 10^3/uL (0.00-0.03); Immature Granulocytes Pct Auto 0.9 % (0.0-0.5); Lymphocytes Absolute Auto 1.4 10^3/uL (1.2-3.8); Lymphocytes Percent Auto 23.9 % (20.5-60.0); Mean Corpuscular HGB Conc 33.2 g/dL (29.9-35.2); Mean Corpuscular Hemoglobin 30.7 pg (26.7-34.0); Mean Corpuscular Volume 92.6 fL (81.0-99.0); Mean Platelet Volume 9.8 fL (9.5-13.5); Monocytes Absolute Auto 0.4 10^3/uL (0.3-0.8); Monocytes Percent Auto 6.8 % (1.7-12.0); Neutrophils Absolute Auto 3.9 10^3/uL (1.4-6.5); Neutrophils Percent Auto 65.8 % (43.0-75.0); Platelet Count 264 10^3/uL (150-450); Red Blood Count 4.17 10^6/uL (4.20-5.40); Red Cell Distribution Width 14.1 % (11.0-15.0); White Blood Count 5.9 10^3/uL (4.0-11.0)
[2024-02-02 09:15] LABS: Alanine Aminotransferase 24 U/L (14-59); Albumin Globulin Ratio 1.3; Alkaline Phosphatase 51 U/L (46-116); Anion Gap 13.9; Aspartate Amino Transferase 14 U/L (15-37); BUN Creatinine Ratio 23.2; Bilirubin Total 0.6 mg/dL (0.2-1.0); Calcium 9.2 mg/dL (8.5-10.1); Carbon Dioxide 25.6 mmol/L (21.0-32.0); Chloride 106 mmol/L (98-107); Chol HDL Ratio 4.1; Cholesterol 257 mg/dL (<=200); Estimated GFR (African America >60 (>=60); Estimated GFR (Non-African Ame >60 (>=60); Free T3 2.86 pg/mL (2.18-3.98); Globulin 3.2 g/dL; Glucose 94 mg/dL (74-106); HDL Cholesterol 63 mg/dL (40-60); Potassium 3.5 mmol/L (3.5-5.1); Sodium 142 mmol/L (136-145); Thyroid Stimulating Hormone 1.798 uIU/mL (0.358-3.740); Total Protein 7.2 g/dL (6.4-8.2); Triglycerides 178 mg/dL (<=150); VLDL CHOLESTEROL 35.6 mg/dL
[2024-02-02 10:38] LABS: Estimated Average Glucose 114 mg/dL; Glycohemoglobin A1C 5.6 % (4.5-6.2)
[2024-02-03 12:10] LABS: Insulin 8.5 uIU/mL (2.6-24.9)
== END 2024-02-02 08:19 | disposition home or self-care (01) ==
PROVIDERS: PCP Nurse Practitioner Family; Visit Provider Nurse Practitioner Family
DX: E78.5 Hyperlipidemia, unspecified (principal); R53.83 Other fatigue; R73.09 Other abnormal glucose; I10 Essential (primary) hypertension; D64.9 Anemia, unspecified; E55.9 Vitamin D deficiency, unspecified
CPT/HCPCS: 36415; 80053; 80061; 82306; 83036; 83525; 83540; 84436; 84443; 84481; 85025

== ENCOUNTER 2024-02-02 09:02 | Outpatient (OUT) | payer MEDICARE, BC, SELFPAY ==
--- NOTE | 2024-02-02 09:24 | P.CN_ITS ---
Consult Note: HPI Data of Consult Patient: known to practice within the last 3 years Consult date: 02/26/23 Requesting Physician: Bessy Johnson NP Primary Care Provider: KIEL ALMODOVAR Consult Narrative Reason for consult: back pain Narrative: Letty is here for f/u for low back pain with right sided radiculopathy greater than 1 year. Prior lumbar MRI consistent with scoliosis, lumbar stenosis, spinal cord tightly pulled against right side of central canal with compression at L3- 4, multilevel foraminal stenosis and facet arthropathy. Patient has been evaluated by NS in the past but no surgical intervention was recommended. Patient has failed to benefit from numerous injections including 2 LCIH nerve blocks, L4-5 L5-S1 facet medial branch blocks, and lumbar ESIs. Most recently underwent caudal EDWIN with 10% improvement per patient. Pain today 2-3/10 increasing to 8/10 with activity, standing, twisting, walking, stairs, housework, improved with sitting. denies loss of bowel/bladder. denies falls. Patient finds mild benefit from ibuprofen, tylenol, baclofen, and tramadol 50- 100mg bid PRN. cc:: CC: Bessy Johnson NP Review of Systems ROS Status of ROS 10 or more systems reviewed and unremark able except as noted in history and below Musculoskeletal Reports: back pain PFSH PFSH Medical History Osteoarthritis ?M19.90 - Unspecified osteoarthritis, unspecified site (ICD-10) Low back pain ?M54.50 - Low back pain, unspecified (ICD-10) Hiatal hernia ?K44.9 - Diaphragmatic hernia without obstruction or gangrene (ICD-10) Obesity ?E66.9 - Obesity, unspecified (ICD-10) Heart murmur ?R01.1 - Cardiac murmur, unspecified (ICD-10) Surgical History History of ear surgery ?Z98.890 - Other specified postprocedural states (ICD-10) History of phacoemulsification of cataract with intraocular lens implantation ?Z98.49 - Cataract extraction status, unspecified eye (ICD-10) ?Z96.1 - Presence of intraocular lens (ICD-10) Hx of appendectomy ?Z90.49 - Acquired absence of other specified parts of digestive tract (ICD- 10) H/O: hysterectomy ?Z90.710 - Acquired absence of both cervix and uterus (ICD-10) History of tonsillectomy ?Z90.89 - Acquired absence of other organs (ICD-10) Meds Home Medications and Allergies Home Medications ?Medication ?Instructions ?Recorded ?Confirmed ?Type aspirin 81 mg tablet,delayed 81 mg PO DAILY 02/26/23 01/25/24 History release (Adult Low Dose Aspirin) denosumab 60 mg/mL subcutaneous 60 mg subcut .Q6 MONTHS 02/26/23 01/25/24 History syringe (Prolia) niacin 500 mg tablet 500 mg PO DAILY 02/26/23 01/25/24 History zonisamide 50 mg capsule 100 mg PO .hs 02/26/23 01/25/24 History baclofen 10 mg tablet 10 mg PO BID 03/01/23 01/25/24 History losartan 25 mg tablet 25 mg PO DAILY 03/01/23 01/25/24 History antiarthritic combination no.2 900 2 mg PO DAILY 07/15/23 01/25/24 History mg tablet (glucosamine-chondroitin) calcium carbonate 600 mg-vitamin 2 cap PO DAILY 07/15/23 01/25/24 History D3 5 mcg (200 unit) capsule (Calcium 600 + D(3)) magnesium glycinate 100 mg tablet 100 mg PO BID 07/15/23 01/25/24 History (Mag Glycinate) multivitamin (Daily Multi-Vitamin 1 tab PO DAILY 07/15/23 01/25/24 History tablet) omega 4-doe-kyn-fish oil 1,200 mg 2 cap PO DAILY 07/15/23 01/25/24 History (144 mg-216 mg) capsule (Fish Oil) vit C 250 mg-vit E 90 mg-zinc 40 1 tab PO BID 07/15/23 01/25/24 History mg-copper 1 yz-myrtwy-oyvkcd capsule (PreserVision AREDS-2) vit C 250 mg-vit E 90 mg-zinc 40 1 tab PO BID 07/15/23 01/25/24 History mg-copper 1 pz-fuvtff-lgnegs capsule (PreserVision AREDS-2) vitamin K2 100 mcg capsule 100 mcg PO DAILY 07/15/23 01/25/24 History cholecalciferol (vitamin D3) 50 2,000 unit PO BID 01/11/24 01/25/24 History mcg (2,000 unit) capsule (Vitamin D3) tramadol 50 mg tablet 50 mg PO BID 01/25/24 01/25/24 History tramadol 50 mg tablet 50 mg PO BID PRN pain #60 tabs 01/27/24 Rx Allergies Allergy/AdvReac Type Severity Reaction Status Date / Time No Known Drug Allergies Allergy Verified 01/11/24 16:19 Exam Constitutional Documenting provider has reviewed patient's vital signs: yes Common normals: no apparent distress, oriented x3, healthy appearing, alert and well nourished General appearance: cooperative HENMT Common normals: normocephalic, hearing grossly normal bilaterally and moist oral mucous membranes Head and scalp: normocephalic Eye Common normals: PERRL Pupil: PERRL Neck & C-Spine Common normals: full ROM General: normal visual inspection Chest Common normals: inspection of chest normal Respiratory Common normals: normal respiratory effort, no retractions and no use of accessory muscles Back & Pelvis Lumbar spine/lower back: ROM limited, pain with ROM and straight leg raise positive right Sacroiliac joints: SI joint(s) abnormal Other: right positive angel(patricks), gaenslens, thigh thrust, compression test positive facet loading radiculopathy following L3,4,5 right leg strength 4/5 in right leg 5/5 in left leg Extremity Common normals: normal to inspection and full ROM Neuro Common normals: oriented x3, CN's II-XII intact bilaterally, moves all extremities, no focal motor deficits, no sensory deficits noted and deep tendon reflexes 2+ bilaterally Sensorium/orientation: alert Motor exam: no movement abnormalities noted and strength abnormal Psych Common normals: mental status grossly normal, thought process normal, coop erative, affect normal, speech normal and activity/motor behavior normal Speech: normal speech Thought process: normal thought process Results Additional Findings Additional findings: If on a controlled substance or opioids, I have checked an [place]AR[place] report on this patient and there are no aberrancies noted in the prescribing history.??If on a controlled substance or opioid a drug screen was completed and reviewed within the last year, and if there has not been a drug screen completed we ordered one today to monitor higher risk, state monitored pain medication use. As part of providing excellent, safe, comprehensive care, the following was completed at our patient's visit: 1. A medication reconciliation and review to ensure accurate knowledge of current/active medications, including asking our patients to inform us about any ouqu-vwq-kaiirep medications or herbal remedies/nutritional supplements/alternative remedies. 2. A review to specifically ensure our patients have had annual screening for screening for depression, screening for tobacco use, and screening for unhealthy alcohol use. For concerning screenings had a discussion with the patient, provided patient education, and recommended follow-up with primary care provider when appropriate. If patient noted with a risk of falling, they received education on strength, gait, and balance training to prevent future risk of falling. Assessment and Plan Assessment and Plan (1) Lumbar radiculopathy: (2) Lumbar spondylosis: (3) Lumbar stenosis with neurogenic claudication: (4) Chronic low back pain with right-sided sciatica: (5) Chronic prescription opiate use: Assessment and Plan: I feel these medications are improving the patient's quality of life and allow them to tolerate activities of daily living as well as participate in recreational activity.? The patient does not report intolerable side effects. The patient is NOT opioid naive and non-pharmacologic and non-opioid treatment has failed to significantly relieve the patient's pain and improve functionality. The patient has a diagnosis that is related to a somatic or visceral pain etiology. ? ?? I reviewed with the patient the potential risks and side effects with the use of? opioid medications including but not limited to respiratory depression,? sedation, and even . I verified the patient has access to naloxone should? these effects occur. I advised the patient to avoid the use of any other? sedation substances including alcohol, THC, and benzodiazepines while? taking opioid medications due to the risk of compounding side effects and? detrimental outcomes. I reviewed the [employer], pain treatment agreement, urine? drug screen, and opioid start talking forms. The patient was advised to let? their family know they had Naloxone in case they would need to administer? the medication.? ?? A drug screen was completed within the last year, and no aberrancies were noted regarding their use of controlled substances. The patient understands they are subject to the terms and conditions of the pain contract that they have signed. ? ?? I have checked an OARRS report on this patient today and there are no aberrancies noted in the prescribing history.? Plan update UDS today risks vs benefits discussed, continue current medication regimen narcan script with next fill Dr Carbone NS referral continue HEP as tolerated f/u 3 months for medication management, can consider steroid rotation and caudal EDWIN if needed. Surgical consult first.
== END 2024-02-02 09:03 | disposition home or self-care (01) ==
LOC: PM 09:02
PROVIDERS: PCP Nurse Practitioner Family; Visit Provider Nurse Practitioner
DX: M54.16 Radiculopathy, lumbar region (principal); M47.816 Spondylosis without myelopathy or radiculopathy, lumbar region; M48.062 Spinal stenosis, lumbar region with neurogenic claudication; M54.50 Low back pain, unspecified; Z79.891 Long term (current) use of opiate analgesic
CPT/HCPCS: G0463

== ENCOUNTER 2024-02-03 07:37 | Outpatient (RCR) | payer MEDICARE, BC, SELFPAY ==
[2024-02-03 08:03] VITALS: BP 128/76; PULSE 70; TEMP 36.6; O2SAT 96
[2024-02-03] MEDS: DENOSUMAB 60 MG/ML SYRINGE SUBQ (08:05)
== END 2024-02-25 23:59 | disposition home or self-care (01) ==
LOC: INF 07:37
PROVIDERS: PCP Nurse Practitioner Family; Visit Provider Nurse Practitioner Family
DX: M81.0 Age-related osteoporosis without current pathological fracture (principal)
CPT/HCPCS: 96372; J0897

== ENCOUNTER 2024-03-03 08:41 | Outpatient (OUT) | payer MEDICARE, BC, SELFPAY ==
--- NOTE | 2024-03-03 | XR_ITS ---
The [address] [address] Patient Name: GAYATHRI LOPEZ MRN: [id number] date: 1945 Sex: F Assigned Patient Location: Current Patient Location: Accession/Order Number: [id number] Exam Date: 03/03/2024 08:45 Report Date: 03/04/2024 07:09 At the request of: MILAGROS MURO Procedure: XR lumbar spine min 4V EXAMINATION: XR lumbar spine min 4V HISTORY: LUMBAR PAIN COMPARISON: XR L-spine 05/01/2022 FINDINGS: BONES: Marked rotoscoliosis of lumbar spine. Grossly stable grade one-2 left lateral listhesis of L2 on 3, L3 on 4, L4 on 5. No appreciable fracture. DISC SPACES: Multilevel marked disc space narrowing; grossly stable. PARASPINOUS: Negative. No paraspinous abnormality is seen. OTHER: Negative. XR/XR lumbar spine min 4V IMPRESSION: 1. Stable marked rotoscoliosis and multilevel moderate degenerative changes. Electronically authenticated by: OFE LOPEZ Date: 03/04/2024 07:09
--- OUTSIDE RECORDS SUMMARY | 2024-03-03 09:02 | XMS_ITS | CCD ---
Author Organization [facility] Care Team Providers Care Director Institution Name Role Phone DARA, EMRE Mario Alberto Unavailable Unavailable DARAEMRE SANDS Unavailable Unavailable KAT NOBLE Unavailable Unavailable Emely Thomas Unavailable MARTHA, DR EMELY Becker Primary Care Unavailable MARTHA, DR EMELY Becker Admitting Unavailable MARTHA, DR EMELY Becker Attending Unavailable LEES ., DR YULI Nguyen Attending Unavailable LEES ., DR YULI Nguyen Admitting Unavailable LEES ., DR YULI Nguyen Consulting Unavailable MARTHA, DR EMELY Becker Primary Care Unavailable JOSE MANUEL LUNA Consulting Unavailable LAKSHMIPATHY ., MORRIS Consulting Johanny vailable LAKSHMIPATHY ., MORRIS Admitting Johanny vailable LAKSHMIPATHY ., MORRIS Attending Johanny vailable MARTHA, DR EMELY Becker Primary Care Unavailable MARTHA, DR EMELY Becker Admitting Unavailable THOMAS, DR EMELY Becker Primary Care Unavailable THOMAS, DR EMELY Becker Attending Unavailable THOMAS, DR EMELY Becker Consulting Unavailable MARTHA, DR EMELY Becker Primary Care Unavailable YOANA ., DR YULI Nguyen Consulting Unavailable LEES [...] MARTHA, DR EMELY Becker Primary Care Unavailable OVALO, DR YOUSUF Ferguson Consulting Unavailable MARTHA, DR EMELY Becker Admitting Unavailable MATRHA, DR EMELY Becker Primary Care Unavailable THOMAS, DR EMELY Becker Attending Unavailable THOMAS, DR EMELY Becker Consulting Unavailable MARTHA, DR EMELY Becker Primary Care Unavailable YOANA ., DR YULI Nguyen Attending Unavailable LEES ., DR YULI Nguyen Consulting Unavailable LEES ., DR YULI Nguyen Admitting Unavailable THOMAS, DR EMELY Becker Primary Care Unavailable LAKSHMIPATHY ., NARENDRANATH Admitting Johanny vailable LAKSHMIPATHY ., NARENDRANATH Attending Johanny vailable RUIZ ., SHAWNA Consulting Unavailable LAKSHMIPATHY ., NARALEXATH Consulting Johanny vailable ELES ., DR YULI Nguyen Attending Unavailable LEES [...] Becker Primary Care Unavailable LEES ., DR YUIL Nguyen Admitting Unavailable LEES ., DR YULI Nguyen Attending Unavailable OVALO, DR YOUSUF Ferguson Consulting Unavailable THOMAS, DR EMELY Becker Primary Care Unavailable LEES ., DR YULI Nguyen Consulting Unavailable THOMAS, DR EMELY Becker Primary Care Unavailable THOMAS, DR EMELY Becker Admitting Unavailable THOMAS, DR EMELY Becker Attending Unavailable THOMAS, DR EMELY eBcker Consulting Unavailable THOMAS, DR EMELY Becker Admitting [...] Admitting Johanny vailable LAKSHMIPATHY ., NARENDRANATH Attending Joahnny vailable THOMAS, DR EMELY Becker Primary Care Unavailable LEES ., DR YULI Nguyen Admitting Unavailable LEES ., DR YULI Nguyen Attending Unavailable LEES ., DR YULI Nguyen Consulting Unavailable MARTHA, DR EMELY Becker Primary Care Unavailable RUIZ ., SHAWNA Admitting Unavailable RUIZ ., SHAWNA Attending Unavailable RUIZ ., SHAWNA Consulting Unavailable THOMAS, DR EMELY Becker Primary Care Unavailable Ej [...] ON FILE] Propensity to adverse reactions (disorder) [facility] Repository Medications Current Medications Medication Drug Class(es) [...] every twenty-four hours Vitamin D 50 MCG (1999) 1 tablet Orally Once a day Active 1 ml denosumab 60 mg/ml prefilled syringe (6 sources) RANK Ligand Inhibitor Prolia 60 MG/ML as directed Subcutaneous Active Fish Oils (5 sources) take 1 capsule by mouth once daily Fish Oil 1000 MG 1 capsule Orally Once a day Active Hzngvj-Vpig-KAE-Ca-C-C tCl-SeCu - (5 sources) Otjrzu-Gfak-MBS- Ca -C-CtCl-SeCu - as directed Orally Active [...] Antiarrhythmic, Amide Local Anesthetic Start: 04-13-2023 Lidocaine 18 Earl, 2023 20 mg triamcinolone acetonide 40 mg/ml injectable [...] unspecified] Chronic Other aftercare (3 sources) 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 [facility] 36on 05-14-2023 36 Left message for an [...] on Wednesday to follow-up regarding this. Normal [facility] Telephoneon 05-14-2023 Telephone [phone] Naun Coffey ice 1945 F Date Provider Department Center 05/14/2023 ALLISON SKAGGS [facility] SURG Second Fl Family History Problem Relation Age of Onset Other Mother Stomach cancer Father Family Status - Relation Status Age at Mother Father Normal [facility] Consulton 05-13-2023 Consult [id number] Naun Coffey ice 1945 F Date Provider Department Center 05/13/2023 [id number], [facility] SURG Second Fl Family History Problem Relation Age of Onset Other Mother Stomach cancer Father Family Status - Relation Status Age at Mother Father Level of Service:46196 ND OFFICE/OUTPATIENT NEW MODERATE MDM 45-59 MINUTES Reason for Visit and Comments: Consult [484] - Pt is here for a CO visit for Spinal Stenosis. [facility] 36on 04-16-2023 36 LVM for pt to call jose shanks to schedule with or Dr. Lopez for Lunbar Stenosis. Imaging requested from [place]. Normal [facility] MRI LSPINE WO CONon 02-11-20 23 MRI [...] OFE COFFEY Date: 2023-02-10 07:16 Normal [facility] CALCIUMon 12-24-2022 Calcium [Mass/Vol] 9.7 mg/dL Normal 8.5-10.1 [facility] Comment on above: Performed By: #### C ADI John ####[facility] [address] [place] [id number] Fisher CREATININEon 12-24-2022 Creatinine [Mass/Vol] 0.62 mg/dL Normal 0.55-1.02 [facility] Comment on above: Performed By: #### C Dora CREDora ####[facility] [address] [place] [id number]. Holly Fisher EGFR-AF MONGOLIAN >60 Normal >=60 [facility] Comment on above: Performed By: #### C Dora, CREA ####[facility] [address] [place], [place] [address]Ix. Holly Fisher EGFR-NON AF MONGOLIAN >60 Normal >=60 [facility] Comment on above: Performed By: #### C Dora, CREA ####[facility] [address] [place], [place] [address]Bd. Holly Fisher Covid-19 PCR (CVDTBH)on SARS-CoV-2 (COVID-19) RNA FRED+probe Ql (Unsp spec) Not detected Normal NOT DETECTED [facility] Comment on above: Result Comment: This test is not yet approved or cleared by the [place] FDA. When there are no FDA-approved or cleared tests available, and other criteria are met, FDA can make tests available under an emergency access mechanism called an Emergency Use Authorization (EUA). The EUA for this test is supported by the [place] of Health and Human Service's (HHS's) declaration [...] consistent with SARS-CoV-2. Performed By: #### C VDTB ####[facility] [address] [place], [place] [address]Se. Holly Fisher Covid-19 PCR (CVDTBH)on 07-28 SARS-CoV-2 (COVID-19) RNA FRED+probe Ql (Unsp spec) Not detected Normal NOT DETECTED [facility] Comment on above: Result Comment: This test is not yet approved or cleared by the [place] FDA. When there are no FDA-approved or cleared tests available, and other criteria are met, FDA can make tests available under an emergency access mechanism called an Emergency Use Authorization (EUA). The EUA for this test is supported by the [place] of Health and Human Service's (HHS's) declaration [...] consistent with SARS-CoV-2. Performed By: #### C VDTB #### [facility] [address] [place] [address] Dr. Holly Fisher CALCIUMon 06-12-2022 Calcium [Mass/Vol] 9.0 mg/dL Normal 8.5-10.1 [facility] Comment on above: Performed By: #### XAVIER HOOD ####[facility] [address] [place] [address]Dr. Holly Fisher CREATININEon 06-12-2022 Creatinine [Mass/Vol] 0.65 mg/dL Normal 0.55-1.02 [facility] Comment on above: Performed By: #### XAVIER HOOD #### [facility] [address] [place] [address] Dr. Holly Fisher EGFR-AF MONGOLIAN >60 Normal >=60 [facility] Comment on above: Performed By: #### Jose ALMEIDA [place] #### [facility] [address] [place] [address] Dr. Holly Fisher EGFR-NON AF MONGOLIAN >60 Normal >=60 [facility] Comment on above: Performed By: #### XAVIER HOOD #### [facility] [address] [place] [address] Dr. Holly Fisher XR LSPINE W_OBLS AND [...] YOUSUF ORTIZ Date: 2022-05-04 08:47 Normal [facility] CBC AUTO DIFFon 03-05-2022 BASO # 0.1 103/ul Normal 0.0-0.1 [facility] Comment on above: Performed By: #### C BC ####[facility] [address] [place], [place] [address]Dr. Holly Fisher Basophils/100 WBC (Bld) 1.0 % Normal 0.2-2.0 [facility] Comment on above: Performed By: #### C BC ####[facility] [address] [place], [place] [address]Dr. Holly Fisher EO # 0.2 103/ul Normal 0.0-0.7 [facility] Comment on above: Performed By: #### C BC ####[facility] [address] [place], [place] [address]Dr. Holly Fisher Eosinophils/100 WBC (Bld) 2.4 % Normal 0.9-7.0 [facility] Comment on above: Performed By: #### C BC ####[facility] [address] [place], [place] [address]Dr. Holly Fisher Erythrocyte distribution width (RBC) [Ratio] 14.4 % Normal 11.0-15.0 [facility] Comment on above: Performed By: #### C BC ####[facility] [address] [place], [place] [address]Dr. Holly Fisher Hematocrit (Bld) [Volume fraction] 41.1 % Normal 36.0-48.0 [facility] Comment on above: Performed By: #### C BC ####[facility] [address] [place] [id number]. Holly Fisher Hemoglobin (Bld) [Mass/Vol] 13.4 g/dL Normal 12.0-16.0 [facility] Comment on above: Performed By: #### C BC ####[facility] [address] [place] [id number]. Holly Fisher IG # 0.03 10e3/ul Normal 0.00-0.03 [facility] Comment on above: Performed By: #### C BC ####[facility] [address] [place] [id number]. Holly Fisher IG % 0.5 % Normal 0.0-0.5 [facility] Comment on above: Performed By: #### C BC ####[facility] [address] [place] [address]Dr. Holly Fisher LYMPH # 1.5 103/ul Normal 1.2-3.8 [facility] Comment on above: Performed By: #### C BC ####[facility] [address] [place] [id number]. Holly Fisher Lymphocytes/100 WBC (Bld) 24.3 % Normal 20.5-60.0 [facility] Comment on above: Performed By: #### C BC ####[facility] [address] [place] [id number]. Holly Fisher MANUAL DIFF REQ NO Normal [facility] Comment on above: Performed By: #### C BC ####[facility] [address] [place] [id number]. Holly Fisher MCH (RBC) [Entitic mass] 30.3 pg Normal 26.7-34.0 [facility] Comment on above: Performed By: #### C BC ####[facility] [address] [place] [id number]. Holly Fisher MCHC (RBC) [Mass/Vol] 32.6 g/dL Normal 29.9-35.2 [facility] Comment on above: Performed By: #### C BC ####[facility] [address] [place] [id number]. Holly Fisher MCV (RBC) [Entitic vol] 93.0 fL Normal 81.0-99.0 [facility] Comment on above: Performed By: #### C BC ####[facility] [address] [place] [id number]. Holly Fisher MONO # 0.5 103/ul Normal 0.3-0.8 [facility] Comment on above: Performed By: #### C BC ####[facility] [address] [place], [place] [address]Dr. Holly Phillip Monocytes/100 WBC (Bld) 7.3 % Normal 1.7-12.0 [facility] Comment on above: Performed By: #### C BC ####[facility] [address] [place], [place] [address]Dr. Holly Fisher NEUT # 4.1 103/ul Normal 1.4-6.5 [facility] Comment on above: Performed By: #### C BC ####[facility] [address] [place], [place] [address]Dr. Holly Fisher Neutrophils/100 WBC (Bld) 64.5 % Normal 43.0-75.0 [facility] Comment on above: Performed By: #### C BC ####[facility] [address] [place], [place] [address]Dr. Holly Fisher Platelet mean volume (Bld) [Entitic vol] 10.5 fL Normal 9.5-13.5 [facility] Comment on above: Performed By: #### C BC ####[facility] [address] [place], [place] [address]Dr. Holly Phillip PLT 253 103/ul Normal 150-450 [facility] Comment on above: Performed By: #### C BC ####[facility] [address] [place], [place] [id number]. Lindaban Phillip RBC 4.42 106/ul Normal 4.20-5.40 [facility] Comment on above: Performed By: #### C BC ####[facility] [address] [place], [place] [address]NpDr. Holly Fisher WBC 6.3 103/ul Normal 4.0-11.0 [facility] Comment on above: Performed By: #### C BC ####[facility] [address] [place], [place] [address]CgDr. Holly Fisher LIPID PROFILEon 03-05-2022 CHOL-HDL RATIO NORM SEE BELOW Normal [facility] Comment on above: Result Comment: 3.3 - 4.4 LOW RISK 4.4 - 7.1 AVERAGE RISK 7.1 - 11.0 MODERATE RISK >11.0 HIGH RISK Performed By: #### L IPID, CMP #### [facility] [address] [place] [address] [address] Holly Fisher Cholesterol [Mass/Vol] 263 mg/dL Critically high <=200 [facility] Comment on above: Performed By: #### L IPID, CMP #### [facility] [address] [place] [address] [address] Holly Fisher Cholesterol in HDL [Mass/Vol] 63 mg/dL Critically high 40-60 [facility] Comment on above: Performed By: #### L IPID, CMP #### [facility] [address] [place] [address] [address] Holly Fisher Cholesterol in LDL [Mass/Vol] 160.2 mg/dL Normal [facility] Comment on above: Performed By: #### L IPID, CMP #### [facility] [address] [place] [address] [address] Holly Fisher Cholesterol.total /Cholesterol in HDL [Mass ratio] 4.2 {ratio} Normal [facility] Comment on above: Performed By: #### L IPID, CMP #### [facility] [address] [place] [address] [address] Holly Fisher HDL NORMAL > or = 60 mg/dl - LO W CARDIOVASCULAR RISK <40 mg/dl - HIGH CARDIOVASCULAR RISK Normal [facility] Comment on above: Performed By: #### L IPID, CMP #### [facility] [address] [place] [address] [address] Holly Fisher LDL CALC NORMAL SEE BELOW Normal [facility] Comment on above: Result Comment: <100 mg/dl OPTIMAL 100 - 129 mg/dl NEAR OR ABOVE OPTIMAL 130 - 159 mg/dl BORDERLINE HIGH 160 - 189 mg/dl HIGH >190 mg/dl VERY HIGH Performed By: #### L IPID, CMP #### [facility] [address] [place], [place] [address] Dr. Holly Fisher Triglyceride [Mass/Vol] 199 mg/dL Critically high <=150 [facility] Comment on above: Performed By: #### L IPID, CMP #### [facility] [address] [place], [place] [address] Dr. Holly Fisher VLDL CALC 39.8 mg/dL Normal [facility] Comment on above: Performed By: #### L IPID, CMP #### [facility] [address] [place] [address] [address] Holly Fisher MG MAMM SCREEN 3D SHERRIE CADon 03-05-2022 MG MAMM SCREEN 3D SHERRIE CAD Patient: LETTY COFFEY Exam Date: 03/05/2022 : 1945 Gender:F Ordering : DR EMELY THOMAS M.D. Admission #: [id number] Family : Order #: [id number] CLICK HERE TO VIEW EXAM RADIOLOGY REPORT [...] Treatments None Family Cancers None LOCATION: [facility] BREAST COMPOSITION: Scattered areas fibroglandular [...] Ortiz MD on 03/05/2022 at 09:55 Normal [facility] PROF 14(COMP METB)on 022 Albumin [Mass/Vol] 3.9 g/dL Normal 3.4-5.0 [facility] Comment on above: Performed By: #### L IPID, CMP #### [facility] [address] [place] [address] Dr. Holly Fisher Albumin/Globulin [Mass ratio] 1.1 {ratio} Normal [facility] Comment on above: Performed By: #### L IPID, CMP #### [facility] [address] [place] [address] Dr. Holly Fisher ALP [Catalytic activity/Vol] 54 U/L Normal 46-116 [facility] Comment on above: Performed By: #### L IPID, CMP #### [facility] [address] [place] [address] Dr. Holly Fisher ALT [Catalytic activity/Vol] 22 U/L Normal 14-59 [facility] Comment on above: Performed By: #### L IPID, CMP #### [facility] [address] [place] [address] Dr. Holly Fisher Anion gap [Moles/Vol] 12.5 mmol/L Normal [facility] Comment on above: Performed By: #### L IPID, CMP #### [facility] [address] [place] [address] Dr. Holly Fisher AST [Catalytic activity/Vol] 14 U/L Critically low 15-37 [facility] Comment on above: Performed By: #### L IPID, CMP #### [facility] [address] [place] [address] [address] Holly Fisher Bilirubin [Mass/Vol] 0.4 mg/dL Normal 0.2-1.0 [facility] Comment on above: Performed By: #### L IPID, CMP #### [facility] [address] [place] [address] Dr. Holly Fisher Calcium [Mass/Vol] 8.6 mg/dL Normal 8.5-10.1 [facility] Comment on above: Performed By: #### L IPID, CMP #### [facility] [address] [place] [address] Dr. Holly Fisher Chloride [Moles/Vol] 106 mmol/L Normal 98-107 [facility] Comment on above: Performed By: #### L IPID, CMP #### [facility] [address] [place] [address] Dr. Holly Fisher CO2 [Moles/Vol] 26.8 mmol/L Normal 21.0-32.0 [facility] Comment on above: Performed By: #### L IPID, CMP #### [facility] [address] [place] [address] Dr. Holly Fisher Creatinine [Mass/Vol] 0.60 mg/dL Normal 0.55-1.02 [facility] Comment on above: Performed By: #### L IPID, CMP #### [facility] [address] [place] [address] Dr. Holly Fisher EGFR-AF MONGOLIAN >60 Normal >=60 [facility] Comment on above: Performed By: #### L IPID, CMP #### [facility] [address] [place] [address] Dr. Holly Fisher EGFR-NON AF MONGOLIAN >60 Normal >=60 [facility] Comment on above: Performed By: #### L IPID, CMP #### [facility] [address] [place] [address] Dr. Holly Fisher Globulin (S) [Mass/Vol] 3.4 g/dL Normal [facility] Comment on above: Performed By: #### L IPID, CMP #### [facility] [address] [place] [address] Dr. Holly Fisher Glucose [Mass/Vol] 98 mg/dL Normal 74-106 [facility] Comment on above: Performed By: #### L IPID, CMP #### [facility] [address] [place] [address] Dr. Holly Fisher Potassium [Moles/Vol] 4.3 mmol/L Normal 3.5-5.1 [facility] Comment on above: Performed By: #### L IPID, CMP #### [facility] [address] [place] [address] Dr. Holly Fisher Protein [Mass/Vol] 7.3 g/dL Normal 6.4-8.2 [facility] Comment on above: Performed By: #### L IPID, CMP #### [facility] [address] [place] [address] Dr. Holly Fisher Sodium [Moles/Vol] 141 mmol/L Normal 136-145 [facility] Comment on above: Performed By: #### L IPID, CMP #### [facility] [address] [place] [address] Dr. Holly Fisher Urea nitrogen [Mass/Vol] 14.0 mg/dL Normal 7.0-18.0 [facility] Comment on above: Performed By: #### L IPID, CMP #### [facility] [address] [place] [address] Dr. Holly Fisher Urea nitrogen/Creatini ne [Mass ratio] 23.3 mg/mg Normal [facility] Comment on above: Performed By: #### L IPID, CMP #### [facility] [address] [place] [address] Dr. Holly Fisher XR DEXA BONE DENSITYon [...] by: YOUSUF ORTIZ Date: 2022-03-05 10:00 Normal [facility] History and Physicalon 04-27 HIM IP Note OR Jewel Gauger Normal [facility] OPERATIVE REPORTon 7 [facility] LETTY COFF[facility]Y : 49MED REC NO: [id number] ROOM:ACCOUNT NO: [id number] ADMISSION DATE: 04/27/17PHYSICIAN: EMRE STAPLETONDATE OF PROCEDURE: [...] used to engage the membrane in a xloet-jxb-aelh technique andthe membrane was elevated from the [...] well without complications.EMRE Llanes DABBSD:04/27/2017 9:59:31 CD/[id number]_TJob#: [id number] Doc#: [id number] [facility] Vital Signs Date Time Vital Sign Value Performing Clinician Facility 06-30-2023 09:15-0400 Body height 158.75 cm Emely Thomas Other [facility] Other 06-30-2023 09:15-0400 Body mass index (BMI) [Ratio] 30.95 kg/m2 Emely Thomas Other [facility] Other 06-30-2023 09:15-0400 Body temperature 96.5 [degF] Emely Thomas Other [facility] Other 06-30-2023 09:15-0400 Body weight 78.02 kg Emely Thomas Other [facility] Other 06-30-2023 09:15-0400 Diastolic blood pressure 76 mm[Hg] Emely Thomas Other [facility] Other 06-30-2023 09:15-0400 Systolic blood pressure 156 mm[Hg] Emely Thomas Other [facility] Other 04-13-2023 15:00-0400 Body height 158.75 cm Emely Thomas Other [facility] Other 04-13-2023 15:00-0400 Body mass index (BMI) [Ratio] 31.49 kg/m2 Emely Thomas Other [facility] Other 04-13-2023 15:00-0400 Body weight 79.38 kg Emely Thomas Other [facility] Other 04-13-2023 15:00-0400 Diastolic blood pressure 78 mm[Hg] Emely Thomas Other [facility] Other 04-13-2023 15:00-0400 Systolic blood pressure 135 mm[Hg] Emely Thomas Other [facility] Other 03-18-2023 08:40-0400 Body height 158.75 cm Ej Thomas Other [facility] Other 03-18-2023 08:40-0400 Body mass index (BMI) [Ratio] 31.67 kg/m2 Ej Thomas Other [facility] Other 03-18-2023 08:40-0400 Body weight 79.83 kg Ej Thomas Other [facility] Other 03-18-2023 08:40-0400 Diastolic blood pressure 84 mm[Hg] Ej Thomas Other [facility] Other 03-18-2023 08:40-0400 Systolic blood pressure 134 mm[Hg] Ej Thomas Other [facility] Other 01-21-2023 11:00-0400 Body height 158.75 cm Emely Thomas Other [facility] Other 01-21-2023 11:00-0400 Body mass index (BMI) [Ratio] 32.21 kg/m2 Emely Thomas Other [facility] Other 01-21-2023 11:00-0400 Body weight 81.19 kg mEely Thomas Other [facility] Other 01-21-2023 11:00-0400 Diastolic blood pressure 82 mm[Hg] Emely Thomas Other [facility] Other 01-21-2023 11:00-0400 SaO2% (BldA) [Mass fraction] 97 % Emely Thomas Other [facility] Other 01-21-2023 11:00-0400 Systolic blood pressure 142 mm[Hg] Emely Thomas Other [facility] Other Encounters Encounter Date Encounter Type Care Provider Facility Start: 02-22-2024 End: 02-22-2024 ambulatory DUSTY D ZAHLER Not Available Start: 01-07-2024 End: 01-07-2024 ambulatory DUSTY D ZAHLER Not Available Start: 12-10-2023 End: 12-10-2023 ambulatory DUSTY D ZAHLER Not Available Start: 11-12-2023 End: 11-12-2023 ambulatory DUSTY D ZAHLER Not Available Start: 10-15-2023 End: 10-15-2023 ambulatory DUSTY D ZAHLER Not Available Start: 10-11-2023 End: 10-11-2023 ambulatory DUSTY D ZAHLER Not Available Start: 06-30-2023 End: 06-30-2023 ambulatory Emely Thomas Other [facility] Other Start: 06-30-2023 Office outpatient vi sit 15 minutes Emely Thomas [facility] Start: 05-18-2023 End: 05-18-2023 ambulatory Emely Thomas Other [facility] Other Start: 05-18-2023 Telephone encounter Emely Thomas [facility] Start: 05-13-2023 End: 05-14-2023 ambulatory [facility] Start: 05-13-2023 End: 05-13-2023 ambulatory [facility] Start: 04-16-2023 End: 04-17-2023 ambulatory [facility] Start: 04-13-2023 End: 04-13-2023 ambulatory Emely Thomas Other [facility] Other Start: 04-13-2023 Office outpatient vi sit 15 minutes Emely Thomas [facility] Start: 04-05-2023 End: 04-05-2023 ambulatory Ej Thomas Other [facility] Other Start: 04-05-2023 Telephone encounter Ej Thomas [facility] Start: 03-18-2023 End: 03-18-2023 ambulatory Ej Thomas Other [facility] Other Start: 03-18-2023 Office outpatient ne w 30 minutes Ej Thomas [facility] Start: 02-09-2023 End: 02-10-2023 ambulatory NARENDRANATH LAKSHMIPATHY . Facility:[facility] Start: 02-01-2023 ambulatory NARENDRANATH LAKSHMIPATHY . Facility:[facility] Start: 01-28-[address] EMELY THOMAS Facil ity:[facility] Start: 01-28-2023 End: 01-29-2023 ambulatory NARENDRANATH LAKSHMIPATHY . Facility:[facility] Start: 01-21-2023 End: 01-21-2023 ambulatory Emely Thomas Other [facility] Other Start: 01-21-2023 Office outpatient vi sit 15 minutes Emely Thomas [facility] Start: 01-12-2023 End: 01-12-2023 ambulatory NARENDRANATH LAKSHMIPATHY . Facility:[facility] Start: 12-31-2022 End: 01-01-[address] EMELY THOMAS Facility:[facility] Start: 12-28-2022 End: 12-28-[address] EMELY THOMAS Facility:[facility] Start: 12-24-2022 End: 12-25-[address] EMELY THOMAS Facility:[facility] Start: 10-07-2022 End: 10-08-2022 ambulatory SHAWNA RUIZ . Facility:[facility] Start: 09-03-2022 Encounter for preprocedural laboratory examination DR YULI LEES . [facility] Start: 09-01-2022 End: 09-01-[address] YULI LEES . Facility:[facility] Start: 08-28-2022 End: 08-29-[address] EMELY THOMAS Facility:[facility] Start: 08-28-2022 End: 08-29-2022 Encounter for preprocedural laboratory examination DR EMELY THOMAS Facility:[facility] Start: 08-11-2022 End: 08-11-[address] YULI LEES . Facility:[facility] Start: 08-08-2022 Encounter for preprocedural cardiovascular examination SHAWNA RUIZ . [facility] Start: 08-07-2022 End: 08-08-2022 ambulatory [...] Start: 04-27-2017 End: 04-27-2017 Ambulatory EMRE STAPLETON [facility] Procedures Date Procedure Procedure Detail Performing Clinician [...] 1 Payers Date Payer Category Payer Unknown [id number] 1957 [employer] Blue Shield [id number] 1957 Medicare [id number] 2.1 [id number] 1959 Unknown [id number] 1945 Unknown [id number] 2.16.84 0.1.478927.3.579.2.593 1947 Unknown [id number] 2.16.84 0.1.580869.3.579.2.593 1947 Unknown [id number] 2.16.84 0.1.242226.3.579.2.593 1947 Unknown [id number] 2.16.84 0.1.540387.3.579.2.593 1947 Unknown [id number] 2.16.84 0.1.155770.3.579.2.593 1947 Unknown [id number] 2.16.84 0.1.285575.3.579.2.593 1947 Unknown [id number] 2.16.84 0.1.540811.3.579.2.593 1947 Unknown [id number] 2.16.84 0.1.145659.3.579.2.593 1947 Unknown [id number] 2.16.84 0.1.530804.3.579.2.593 1947 Unknown [id number] 2.16.84 0.1.799642.3.579.2.593 1947 Unknown [id number] 2.16.84 0.1.773789.3.579.2.593 1947 Unknown [id number] 2.16.84 0.1.552969.3.579.2.593 1947 Unknown [id number] 2.16.84 0.1.929007.3.579.2.593 1947 Unknown [id number] 2.16.84 0.1.916627.3.579.2.593 1947 Unknown [id number] 2.16.84 0.1.851462.3.579.2.593 1947 Unknown [id number] 2.16.84 0.1.802403.3.579.2.593 1947 Unknown [id number] 2.16.84 0.1.599660.3.579.2.593 1947 Unknown [id number] 2.16.84 0.1.496459.3.579.2.593 1947 Unknown [id number] 2.16.84 0.1.753330.3.579.2.593 1947 Unknown [id number] 2.16.84 0.1.287741.3.579.2.593 1947 Unknown [id number] 2.16.84 0.1.116781.3.579.2.593 1947 Unknown [id number] 2.16.84 0.1.196625.3.579.2.593 1947 Unknown [id number] 2.16.84 0.1.985024.3.579.2.593 1947 Unknown [id number] 2.16.84 0.1.271170.3.579.2.593 1947 Unknown [id number] 2.16.84 0.1.359684.3.579.2.593 1947 Unknown [id number] 2.16.84 0.1.721355.3.579.2.1259 1947 Unknown [id number] 2.16.84 0.1.395768.3.579.2.1259 1947 Unknown [id number] 2.16.84 0.1.517849.3.579.2.1259 1947 Unknown [id number] 2.16.84 0.1.178656.3.579.2.1259 1947 Unknown [id number] 2.16.84 0.1.331727.3.579.2.1259 1947 Unknown [id number] 2.16.84 0.1.249098.3.579.2.1259 Social History Date Type Detail Facility Unknown if ever smoked [facility] Other Sex Assigned At Sex Assigned At Bir th [facility] Other Clinical Notes 03-05-2022 to 06-30-2023 Note Date & Type Note Facility 06-30-2023 Evaluation note Encounter Date Diagnosis Assessment Notes Jun, Acute non-recurrent maxillary sinusitis (ICD-10 - J01.00) Finish antibiotic, stay hydrated. Ok for NSAIDs for head pressure. Call if no improvement. [facility] Other 08-17-2023 NoteSUBJECTIVE: Chief complaint: Back and right leg pain. History of present illness: Consultation referred by pain management, Dr. Layton of [facility]. Patient reports chronic low back [...] intake/output data recorded. Accompanied by daughter Alda today. Constitutional: In no apparent distress. Cardiovascular: Heart [...] found for any pre (more content not included)...[facility]08-17-2023 NoteSubjective: HPI: Letty Coffey is a 77 [...] and assess x-rays of back. [facility]* Encounter Date Diagnosis Assessment Notes [...] is busy with other appts right now. [facility] Other 06-22-2023 Evaluation note* Encounter Date Diagnosis [...] long as possible before considering surgical intervention. [facility] Other 05-04-2023 NoteCONSULTATION CONSULTATION DATE: 01/28/2023 TO: [...] our patients to inform us about any bncu-aum-amnllmb medications or herbal remedies/nutritional supplements/alternative remedies. 2. [...] treatment options with their primary care provider.[facility] HospitalOnjgtody47-20-2500 Evaluation note * Encounter Date Diagnosis Assessment Notes Treatment Notes Treatment Clinical Notes Dec, Essential (primary) hypertension (ICD-10 - I10) new problem. rx handwritten. f/u 6 weeks. Dec, Other chronic pain (ICD-10 - G89.29) Dec, Pain in left shoulder (ICD-10 - M25.512) PT order given to pt. [facility] Other 04-06-2023 NoteCONSULTATION CONSULTATION DATE: 12/31/2022 TO: [...] our patients to inform us about any lljv-qfb-qdnnghz medications or herbal remedies/nutritional supplements/alternative remedies. 2. [...] treatment options with their primary care provider.[facility] HospitalBqnzbxfd20-28-0975 Note CONSULTATION PROCEDURE DATE: 10/07/2022 PREOPERATIVE DIAGNOSIS: [...] fan-like pattern. Patient tolerated the procedure well.[facility] [id number] NoteCONSULTATION CONSULTATION DATE: 10/07/2022 HISTORY OF PRESENT [...] sitting does decrease her pain. Medications include qtuf-thn-fanjapp Tylenol and the use of Salonpas patches. [...] otherwise indicated. Patient agrees with this plan.[facility] [id number] NoteCONSULTATION CONSULTATION DATE: 07/30/2022 This is a [...] be followed up at the office thereafter.[facility] [id number] NoteCONSULTATION CONSULTATION DATE: 06/25/2022 HISTORY OF PRESENT [...] patient is in agreement with this plan.[facility] [id number] NoteCONSULTATION CONSULTATION DATE: 05/19/2022 CHIEF COMPLAINT: Right [...] would like to proceed. CC: Emely Thomas M.D.[facility]08-02-2022 NoteCONSULTATION PROCEDURE DATE: 04/28/2022 PREOPERATIVE DIAGNOSIS: Right [...] Will be followed up in the office.[facility] [id number] NoteCONSULTATION CONSULTATION DATE: 04/28/2022 CHIEF COMPLAINT: Right [...] like to proceed. CC: Emely Thomas M.D.[facility] [id number] NotePROCEDURE: XR HIP RT 2 3V W PELVIS COMPARISON: None. HISTORY: Arthropathy FINDINGS: BONES:No acute fracture or dislocation. Mild osteoarthropathy with marginal osteophyte formation. 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 No visible soft tissue swelling. EFFUSION:None visible. OTHER: Negative. 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 Electronically authenticated by: YOUSUF ORTIZ Date: 2022-03-05 10:09[facility] HospitalEvaluation noteNo InformationNort Wandrian Other History general Narrative - Reported* Type [...] History COLONOSCOPY Hospitalization History SEE SURGICAL HX [facility] Other History general Narrative - Reported* Type [...] growth surgery Hospitalization History SEE SURGICAL HX [facility] Other Summary Purpose Family History No Family History Records FoundNo Family History Records FoundNo Family History Records FoundNo Family History Records Found Advance Directives No Advanced Directives Records FoundNo Advanced Directives Records FoundNo Advanced Directives Records FoundNo Advanced Directives Records Found Additional Source Comments INFORMATION SOURCE (unrecogn ized section and content) DATE CREATED AUTHOR 03/23/2018 [facility] DATE CREATED AUTHOR AUTHOR'S ORGANIZ ATION 02/10/2023 [facility] DATE CREATED AUTHOR AUTHOR'S ORGANIZ ATION 05/19/2023 [facility] DATE CREATED AUTHOR AUTHOR'S ORGANIZ ATION 02/23/2024 [facility] EPIC REASON FOR VISIT (unrecogniz ed [...] BE BASED ON THE PRIMARY CLINICAL RECORDS. [employer] provides no warranty or guarantee of the accuracy or completeness of information in this document.
== END 2024-03-03 08:42 | disposition home or self-care (01) ==
LOC: EC 08:41
PROVIDERS: PCP Nurse Practitioner Family; Visit Provider Orthopaedic Surgery Orthopaedic Surgery of the Spine
DX: M54.50 Low back pain, unspecified (principal); M51.36 Other intervertebral disc degeneration, lumbar region
CPT/HCPCS: 72110

== ENCOUNTER 2024-06-07 11:30 | Outpatient (OUT) | payer MEDICARE, BC, SELFPAY ==
--- OUTSIDE RECORDS SUMMARY | 2024-06-07 11:41 | XMS_ITS | CCD ---
Author Organization [facility] Care Team Providers Care Tape Transferrer Name Role Phone DARA EMRE Mario Alberto Unavailable Unavailable DARA, EMRE Mario Alberto Unavailable Unavailable KAT NOBLE Unavailable Unavailable Emely [...] DR EMELY Becker Admitting Unavailable THOMAS, DR EEMLY Becker Primary Care Unavailable THOMAS, DR EMELY [...] MARTHA, DR EMELY Becker Primary Care Unavailable BREWSTER, DR YOUSUF Ferguson Consulting Unavailable MARTHA, DR EMELY Beckre Admitting Unavailable MARTHA, DR EMELY Becker Primary Care Unavailable THOMAS, DR EMELY Becker Attending Unavailable THOMAS, DR EMELY Becker Consulting Unavailable MARTHA, DR EMELY Becker Primary Care Unavailable LEES ., DR YULI Nguyen Attending Unavailable LEES ., DR YULI Nguyen Consulting Unavailable LESE ., DR YULI Nguyen Admitting Unavailable THOMAS, DR EMELY Becker Primary Care Unavailable LAKSHMIPATHY ., NARENDRANATH Admitting Johanny vailable LAKSHMIPATHY ., NARENDRANATH Attending Johanny vailable RUIZ ., SHAWNA Consulting Unavailable LAKSHMIPATHY ., NARALEXATH Consulting Johanny vailable LEES ., DR YULI [...] LEES ., DR YULI Nguyen Attending Unavailable BREWSTER, DR YOUSUF Ferguson Consulting Unavailable THOMAS, DR [...] DR EMELY Becker Primary Care Unavailable Ej Thmoas Unavailable OVITT, Referring Unavailable OVITT, Referring Unavailable OVITT, Referring Unavailable OVITT, Attending Unavailable DUSTY DURAND Attending Unavailable DUSTY DURAND Attending Unavailable DUSTY DURAND Attending Unavailable DUSTY DURAND Attending Unavailable DUSTY DURAND Attending Unavailable DUSTY DURAND Attending Unavailable DUSTY DURAND Attending Unavailable BREANNE HENDERSON Attending Unavailable BREANNE HENDERSON Referring Unavailable DUSTY DURAND Attending Unavailable Allergies Allergy Classification Reported Allergen(s) Allergy Type Date of Onset Reaction(s) Facility (1 source) ALLERGIES NOT ON FILE; Translations: [ALLERGIES NOT ON FILE] Propensity to adverse reactions (disorder) [facility] Repository Medications Current Medications Medication Drug Class(es) [...] every twenty-four hours Vitamin D 50 MCG (1999 UT) 1 tablet Orally Once a day Active 1 ml denosumab 60 mg/ml prefilled syringe (6 sources) RANK Ligand Inhibitor Prolia 60 MG/ML as directed Subcutaneous Active Fish Oils (5 sources) take 1 capsule by mouth once daily Fish Oil 1000 MG 1 capsule Orally Once a day Active Iyhuhg-Njxz-SJX-Ca-C-C tCl-SeCu - (5 sources) Atsusk-Eung-JUZ- Ca -C-CtCl-SeCu - as directed Orally Active [...] unspecified] Chronic Other aftercare (3 sources) 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 [facility] 36on 05-14-2023 36 Left message for pat ient on identified voicemail that I had reviewed [...] on Wednesday to follow-up regarding this. Normal [facility] Telephoneon 05-14-2023 Telephone [phone] Naun Coffey ice 1945 F Date Provider Department Center 05/14/2023 ALLISON SKAGGS [facility] Second Fl Family History Problem Relation Age of Onset Other Mother Stomach cancer Father Family Status - Relation Status Age at Mother Father Normal [facility] Consulton 05-13-2023 Consult [id number] Naun Coffey ice 1945 F Date Provider Department Center 05/13/2023 ALLISON SKAGGS [facility] Second Fl Family History Problem Relation Age of Onset Other Mother Stomach cancer Father Family Status - Relation Status Age at Mother Father Level of Service:18148 [place] OFFICE/OUTPATIENT NEW MODERATE MDM 45-59 MINUTES Reason for Visit and Comments: Consult [484] - Pt is here for a CO visit for Spinal Stenosis. Normal [facility] 36on 04-16-2023 36 LVM for pt to call jose shanks to schedule with or Dr. Lopez for Lunbar Stenosis. Imaging requested from Brent. Normal [facility] MRI LSPINE WO CONon 02-11-20 23 MRI [...] OFE COFFEY Date: 2023-02-10 07:[address] [facility] CALCIUMon 12-24-2022 Calcium [Mass/Vol] 9.7 mg/dL Normal 8.5-10.[address] [facility] Comment on above: Performed By: #### ADI Pickett ####[facility] [address] [place], [place] [address]RcHafsa Fsiher CREATININEon 12-24-2022 Creatinine [Mass/Vol] 0.62 mg/dL Normal 0.55-1.[address] [facility] Comment on above: Performed By: #### C A, CREA ####[facility] [address] [place], [place] [address]Bw. Holly Fisher EGFR-AF CHADIAN >60 Normal >=60 [facility] Comment on above: Performed By: #### C A, CREA ####[facility] [address] [place], [place] [address]Mu. Holly Fisher EGFR-NON AF CHADIAN >60 Normal >=[address] [facility] Comment on above: Performed By: #### C Dora, CREA ####[facility] [address] [place], [place] [address]Iv. Holly Fisher Covid-19 PCR (CVDTBH)on SARS-CoV-2 (COVID-19) RNA FRED+probe Ql (Unsp spec) Not detected Normal NOT DETECTED [facility] Comment on above: Result Comment: This test is not yet approved or cleared by the [place] FDA. When there are no FDA-approved or cleared tests available, and other criteria are met, FDA can make tests available under an emergency access mechanism called an Emergency Use Authorization (EUA). The EUA for this test is supported by the [place] of Health and Human Service's (HHS's) declaration [...] with SARS-CoV-2. Performed By: #### C VDTBH ####[facility] [address] [place], [place] [address]Cf. Holly Fisher Covid-19 PCR (CVDTBH)on 07-28 SARS-CoV-2 (COVID-19) RNA FRED+probe Ql (Unsp spec) Not detected Normal NOT DETECTED [facility] Comment on above: Result Comment: This test is not yet approved or cleared by the [place] FDA. When there are no FDA-approved or cleared tests available, and other criteria are met, FDA can make tests available under an emergency access mechanism called an Emergency Use Authorization (EUA). The EUA for this test is supported by the [place] of Health and Human Service's (HHS's) declaration [...] SARS-CoV-2. Performed By: #### Jose VDTB #### [facility] [address] [place] [address] Dr. Holly Fisher CALCIUMon 06-12-2022 Calcium [Mass/Vol] 9.0 mg/dL Normal 8.5-10.1 [facility] Comment on above: Performed By: #### XAVIER HOOD ####[facility] [address] [place] [address]Dr. Holly Fisher CREATININEon 06-12-2022 Creatinine [Mass/Vol] 0.65 mg/dL Normal 0.55-1.[address] [facility] Comment on above: Performed By: #### XAVIER HOOD #### [facility] [address] [place] [address] Dr. Holly Fisher EGFR-AF CHADIAN >60 Normal >=60 [facility] Comment on above: Performed By: #### XAVIER HOOD #### [facility] [address] [place] [address] Dr. Holly Fisher EGFR-NON AF CHADIAN >60 Normal >=60 [facility] Comment on above: Performed By: #### XAVIER HOOD #### [facility] [address] [place] [address] Dr. Holly Fisher XR LSPINE W_OBLS AND FLEX_EX Ton 08-08-2022 XR LSPINE W_OBLS AND FLEX_EXT EXAMINATION: XR [...] YOUSUF ORTIZ Date: 2022-05-04 08:[address] [facility] CBC AUTO DIFFon 03-05-2022 BASO # 0.1 103/ul Normal 0.0-0.1 [facility] Comment on above: Performed By: #### C BC ####[facility] [address] [place], [place] [address]Dr. Holly Fisher Basophils/100 WBC (Bld) 1.0 % Normal 0.2-2.[address] [facility] Comment on above: Performed By: #### C BC ####[facility] [address] [place], [place] [address]Dr. Holly Fisher EO # 0.2 103/ul Normal 0.0-0.[address] [facility] Comment on above: Performed By: #### C BC ####[facility] [address] [place], [place] [address]Dr. Holly Fisher Eosinophils/100 WBC (Bld) 2.4 % Normal 0.9-7.[address] [facility] Comment on above: Performed By: #### C BC ####[facility] [address] [place], [place] [address]Dr. Holly Fisher Erythrocyte distribution width (RBC) [Ratio] 14.4 % Normal 11.0-15.[address] [facility] Comment on above: Performed By: #### C BC ####[facility] [address] [place], [place] [address]Dr. Lindaban Fisher Hematocrit (Bld) [Volume fraction] 41.1 % Normal 36.0-48.[address] [facility] Comment on above: Performed By: #### C BC ####[facility] [address] [place] [address]Dr. Lindaban Fisher Hemoglobin (Bld) [Mass/Vol] 13.4 g/dL Normal 12.0-16.[address] [facility] Comment on above: Performed By: #### C BC ####[facility] [address] [place] [address]Dr. Holly Fisher IG # 0.03 10e3/ul Normal 0.00-0.[address] [facility] Comment on above: Performed By: #### C BC ####[facility] [address] [place] [address]Dr. Holly Fisher IG % 0.5 % Normal 0.0-0.[address] [facility] Comment on above: Performed By: #### C BC ####[facility] [address] [place], [place] [address]Dr. Holly Fisher LYMPH # 1.5 103/ul Normal 1.2-3.[address] [facility] Comment on above: Performed By: #### C BC ####[facility] [address] [place], [place] [address]Dr. Hloly Fisher Lymphocytes/100 WBC (Bld) 24.3 % Normal 20.5-60.[address] [facility] Comment on above: Performed By: #### C BC ####[facility] [address] [place], [place] [address]Dr. Holly Fisher MANUAL DIFF REQ NO Normal [facility] Comment on above: Performed By: #### C BC ####[facility] [address] [place] [address]Dr. Holly Fisher MCH (RBC) [Entitic mass] 30.3 pg Normal 26.7-34.[address] [facility] Comment on above: Performed By: #### C BC ####[facility] [address] [place], [place] [address]Dr. Holly Fisher MCHC (RBC) [Mass/Vol] 32.6 g/dL Normal 29.9-35.[address] [facility] Comment on above: Performed By: #### C BC ####[facility] [address] [place] [address]DrHafsa Mckeonban Phillip MCV (RBC) [Entitic vol] 93.0 fL Normal 81.0-99.[address] [facility] Comment on above: Performed By: #### C BC ####[facility] [address] [place], [place] [address]DrHafsa Fisher MONO # 0.5 103/ul Normal 0.3-0.[address] [facility] Comment on above: Performed By: #### C BC ####[facility] [address] [place], [place] [address]DrHafsa Fisher Monocytes/100 WBC (Bld) 7.3 % Normal 1.7-12.[address] [facility] Comment on above: Performed By: #### C BC ####[facility] [address] [place], [place] [address]DrHafsa Fisher NEUT # 4.1 103/ul Normal 1.4-6.[address] [facility] Comment on above: Performed By: #### C BC ####[facility] [address] [place], [place] [address]DrHafsa Fisher Neutrophils/100 WBC (Bld) 64.5 % Normal 43.0-75.[address] [facility] Comment on above: Performed By: #### C BC ####[facility] [address] [place], [place] [address]DrHafsa Fisher Platelet mean volume (Bld) [Entitic vol] 10.5 fL Normal 9.5-13.[address] [facility] Comment on above: Performed By: #### C BC ####[facility] [address] [place], [place] [address]DrHafsa Fisher PLT 253 103/ul Normal 150-[address] [facility] Comment on above: Performed By: #### C BC ####[facility] [address] [place], [place] [address]Dr. Holly Fisher RBC 4.42 106/ul Normal 4.20-5.40 [facility] Comment on above: Performed By: #### C BC ####[facility] [address] [place], [place] [address]IdDr. Holly Fisher WBC 6.3 103/ul Normal 4.0-11.0 [facility] Comment on above: Performed By: #### C BC ####[facility] [address] [place], [place] [address]SmDr. Holly Fisher LIPID PROFILEon 03-05-2022 CHOL-HDL RATIO NORM SEE BELOW Normal [facility] Comment on above: Result Comment: 3.3 - 4.4 LOW RISK 4.4 - 7.1 AVERAGE RISK 7.1 - 11.0 MODERATE RISK >11.0 HIGH RISK Performed By: #### L IPID, CMP #### [facility] [address] [place] [address] [address] Holly Fisher Cholesterol [Mass/Vol] 263 mg/dL Critically high <=200 [facility] Comment on above: Performed By: #### L IPID, CMP #### [facility] [address] [place] [address] [address] Holly Fisher Cholesterol in HDL [Mass/Vol] 63 mg/dL Critically high 40-60 [facility] Comment on above: Performed By: #### L IPID, CMP #### [facility] [address] [place], [place] [address] Dr. Holly Fisher Cholesterol in LDL [Mass/Vol] 160.2 mg/dL Normal [facility] Comment on above: Performed By: #### L IPID, CMP #### [facility] [address] [place], [place] [address] Dr. Holly Fisher Cholesterol.total /Cholesterol in HDL [Mass ratio] 4.2 {ratio} Normal [facility] Comment on above: Performed By: #### L IPID, CMP #### [facility] [address] [place], [place] [address] Dr. Holly Fisher HDL NORMAL > or = 60 mg/dl - LO W CARDIOVASCULAR RISK <40 mg/dl - HIGH CARDIOVASCULAR RISK Normal [facility] Comment on above: Performed By: #### L IPID, CMP #### [facility] [address] [place] [address] [address] Holly Fisher LDL CALC NORMAL SEE BELOW Normal [facility] Comment on above: Result Comment: <100 mg/dl OPTIMAL 100 - 129 mg/dl NEAR OR ABOVE OPTIMAL 130 - 159 mg/dl BORDERLINE HIGH 160 - 189 mg/dl HIGH >190 mg/dl VERY HIGH Performed By: #### L IPID, CMP #### [facility] [address] [place] [address] [address] Holly Fisher Triglyceride [Mass/Vol] 199 mg/dL Critically high <=150 [facility] Comment on above: Performed By: #### L IPID, CMP #### [facility] [address] [place] [address] [address] Holly Fisher VLDL CALC 39.8 mg/dL Normal [facility] Comment on above: Performed By: #### L IPID, CMP #### [facility] [address] [place] [address] [address] Holly Fisher MG MAMM SCREEN 3D SHERRIE CADon 03-05-2022 MG MAMM SCREEN 3D SHERRIE CAD Patient: LETTY COFFEY Exam Date: 03/05/2022 : 1945 Gender:F Ordering : DR EMELY THOMAS M.D. Admission #: [id number] Family : Order #: [id number] CLICK HERE TO VIEW EXAM RADIOLOGY REPORT [...] Treatments None Family Cancers None LOCATION: [facility] BREAST COMPOSITION: Scattered areas fibroglandular density. [...] Ortiz MD on 03/05/2022 at 09:55 Normal [facility] PROF 14(COMP METB)on 022 Albumin [Mass/Vol] 3.9 g/dL Normal 3.4-5.0 [facility] Comment on above: Performed By: #### L IPID, CMP #### [facility] [address] [place] [address] Dr. Holly Fisher Albumin/Globulin [Mass ratio] 1.1 {ratio} Normal [facility] Comment on above: Performed By: #### L IPID, CMP #### [facility] [address] [place] [address] Dr. Holly Fisher ALP [Catalytic activity/Vol] 54 U/L Normal 46-116 [facility] Comment on above: Performed By: #### L IPID, CMP #### [facility] [address] [place] [address] Dr. Holly Fisher ALT [Catalytic activity/Vol] 22 U/L Normal 14-59 [facility] Comment on above: Performed By: #### L IPID, CMP #### [facility] [address] [place] [address] Dr. Holly Fisher Anion gap [Moles/Vol] 12.5 mmol/L Normal [facility] Comment on above: Performed By: #### L IPID, CMP #### [facility] [address] [place] [address] Dr. Holly Fisher AST [Catalytic activity/Vol] 14 U/L Critically low 15-37 [facility] Comment on above: Performed By: #### L IPID, CMP #### [facility] [address] [place] [address] Dr. Holly Fisher Bilirubin [Mass/Vol] 0.4 mg/dL Normal 0.2-1.0 [facility] Comment on above: Performed By: #### L IPID, CMP #### [facility] [address] [place] [address] [address] Holly Fisher Calcium [Mass/Vol] 8.6 mg/dL Normal 8.5-10.[address] [facility] Comment on above: Performed By: #### L IPID, CMP #### [facility] [address] [place] [address] [address] Holly Fisher Chloride [Moles/Vol] 106 mmol/L Normal 98-[address] [facility] Comment on above: Performed By: #### L IPID, CMP #### [facility] [address] [place] [address] [address] Holly Fisher CO2 [Moles/Vol] 26.8 mmol/L Normal 21.0-32.0 [facility] Comment on above: Performed By: #### L IPID, CMP #### [facility] [address] [place] [address] Dr. Holly Fisher Creatinine [Mass/Vol] 0.60 mg/dL Normal 0.55-1.[address] [facility] Comment on above: Performed By: #### L IPID, CMP #### [facility] [address] [place] [address] [address] Holly Fisher EGFR-AF CHADIAN >60 Normal >=60 [facility] Comment on above: Performed By: #### L IPID, CMP #### [facility] [address] [place] [address] [address] Holly Fisher EGFR-NON AF CHADIAN >60 Normal >=[address] [facility] Comment on above: Performed By: #### L IPID, CMP #### [facility] [address] [place] [address] [address] Holly Fisher Globulin (S) [Mass/Vol] 3.4 g/dL Normal [facility] Comment on above: Performed By: #### L IPID, CMP #### [facility] [address] [place] [place] [address] [address] Holly Fisher Glucose [Mass/Vol] 98 mg/dL Normal 74-[address] [facility] Comment on above: Performed By: #### L IPID, CMP #### [facility] [address] [place] [address] Dr. Holly Fisher Potassium [Moles/Vol] 4.3 mmol/L Normal 3.5-5.[address] [facility] Comment on above: Performed By: #### L IPID, CMP #### [facility] [address] [place] [address] Dr. Holly Fisher Protein [Mass/Vol] 7.3 g/dL Normal 6.4-8.[address] [facility] Comment on above: Performed By: #### L IPID, CMP #### [facility] [address] [place] [address] Dr. Holly Fisher Sodium [Moles/Vol] 141 mmol/L Normal 136-145 [facility] Comment on above: Performed By: #### L IPID, CMP #### [facility] [address] [place] [address] Dr. Holly Fisher Urea nitrogen [Mass/Vol] 14.0 mg/dL Normal 7.0-18.0 [facility] Comment on above: Performed By: #### L IPID, CMP #### [facility] [address] [place] [address] Dr. Holly Fisher Urea nitrogen/Creatini ne [Mass ratio] 23.3 mg/mg Normal [facility] Comment on above: Performed By: #### L IPID, CMP #### [facility] [address] [place] [address] Dr. 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 Normal [facility] OPERATIVE REPORTon 7 [facility] COFF[facility]Y : 49MED REC NO: [id number] ROOM:ACCOUNT NO: [id number] ADMISSION DATE: 04/27/17PHYSICIAN: EMRE STAPLETONDATE OF PROCEDURE: [...] used to engage the membrane in a wofvr-ket-rslh technique andthe membrane was elevated from the [...] condition, having tolerated theprocedure well without complications.EMRE DANIELBSD:04/27/2017 9:59:31 CD/V_VGPRS_TJob#: [id number] Doc#: [id number] [facility] Vital Signs Date Time Vital Sign Value Performing Clinician Facility 06-30-2023 09:15-0400 Body height 158.75 cm Emely Thomas Other [facility] Other 06-30-2023 09:15-0400 Body mass index (BMI) [Ratio] 30.95 kg/m2 Emely Thomas Other [facility] Other 06-30-2023 09:15-0400 Body temperature 96.5 [degF] Emely Thomas Other [facility] Other 06-30-2023 09:15-0400 Body weight 78.02 kg Emely Thomas Other [facility] Other 06-30-2023 09:15-0400 Diastolic blood pressure 76 mm[Hg] Emely Thomas Other [facility] Other 06-30-2023 09:15-0400 Systolic blood pressure 156 mm[Hg] Emely Thomas Other [facility] Other 04-13-2023 15:00-0400 Body height 158.75 cm Emely Thomas Other [facility] Other 04-13-2023 15:00-0400 Body mass index (BMI) [Ratio] 31.49 kg/m2 Emely Thomas Other [facility] Other 04-13-2023 15:00-0400 Body weight 79.38 kg Emely Thomas Other [facility] Other 04-13-2023 15:00-0400 Diastolic blood pressure 78 mm[Hg] Emely Thomas Other [facility] Other 04-13-2023 15:00-0400 Systolic blood pressure 135 mm[Hg] Emely Thomas Other [facility] Other 03-18-2023 08:40-0400 Body height 158.75 cm Ej Thomas Other [facility] Other 03-18-2023 08:40-0400 Body mass index (BMI) [Ratio] 31.67 kg/m2 Ej Thomas Other [facility] Other 03-18-2023 08:40-0400 Body weight 79.83 kg Ej Thomas Other [facility] Other 03-18-2023 08:40-0400 Diastolic blood pressure 84 mm[Hg] Ej Thomas Other [facility] Other 03-18-2023 08:40-0400 Systolic blood pressure 134 mm[Hg] Ej Thomas Other [facility] Other 01-21-2023 11:00-0400 Body height 158.75 cm Emely Thomas Other [facility] Other 01-21-2023 11:00-0400 Body mass index (BMI) [Ratio] 32.21 kg/m2 Emely Thomas Other [facility] Other 01-21-2023 11:00-0400 Body weight 81.19 kg Emely Thomas Other [facility] Other 01-21-2023 11:00-0400 Diastolic blood pressure 82 mm[Hg] Emely Thomas Other [facility] Other 01-21-2023 11:00-0400 SaO2% (BldA) [Mass fraction] 97 % Emely Thomas Other [facility] Other 01-21-2023 11:00-0400 Systolic blood pressure 142 mm[Hg] Emely Thomas Other [facility] Other Encounters Encounter Date Encounter Type Care Provider Facility Start: 05-30-2024 End: 05-30-2024 ambulatory DUSTY D ZAHLER Not Available Start: 05-10-2024 End: 05-10-2024 ambulatory BREANNE HENDERSON Not Available Start: 04-05-2024 End: 04-05-2024 ambulatory DUSTY D ZAHLER Not Available Start: 02-22-2024 End: 02-22-2024 ambulatory DUSTY D ZAHLER Not Available Start: 01-07-2024 End: 01-07-2024 ambulatory DUSTY D ZAHLER Not Available Start: 12-10-2023 End: 12-10-2023 ambulatory DUSTY D ZAHLER Not Available Start: 11-12-2023 End: 11-12-2023 ambulatory DUSTY D ZAHLER Not Available Start: 10-15-2023 End: 10-15-2023 ambulatory DUSTY DURAND Not Available Start: 10-11-2023 End: 10-11-2023 ambulatory DUSTY DURAND Not Available Start: 06-30-2023 End: 06-30-2023 ambulatory Emely Thomas Other [facility] Other Start: 06-30-2023 Office outpatient vi sit 15 minutes Emely Thomas [facility] Start: 05-18-2023 End: 05-18-2023 ambulatory Emely Thomas Other [facility] Other Start: 05-18-2023 Telephone encounter Emely Thomas [facility] Start: 05-13-2023 End: 05-14-2023 ambulatory [facility] Start: 05-13-2023 End: 05-13-2023 ambulatory [facility] Start: 04-16-2023 End: 04-17-2023 ambulatory [facility] Start: 04-13-2023 End: 04-13-2023 ambulatory Emely Thomas Other [facility] Other Start: 04-13-2023 Office outpatient vi sit 15 minutes Emely Thomas [facility] Start: 04-05-2023 End: 04-05-2023 ambulatory Ej Thomas Other [facility] Other Start: 04-05-2023 Telephone encounter Ej Thomas [facility] Start: 03-18-2023 End: 03-18-2023 ambulatory Ej Thomas Other [facility] Other Start: 03-18-2023 Office outpatient ne w 30 minutes Ej Thomas [facility] Start: 02-09-2023 End: 02-10-2023 ambulatory NARENDRANATH LAKSHMIPATHY . Facility:[facility] Start: 02-01-2023 ambulatory NARENDRANATH LAKSHMIPATHY . Facility:[facility] Start: 01-28-[address] EMELY THOMAS Facil ity:[facility] Start: 01-28-2023 End: 01-29-2023 ambulatory NARENDRANATH LAKSHMIPATHY . Facility:[facility] Start: 01-21-2023 End: 01-21-2023 ambulatory Emely Thomas Other [facility] [employer] Other Start: 01-21-2023 Office outpatient vi sit 15 minutes Emely Thomas [facility] Start: 01-12-2023 End: 01-12-2023 ambulatory NARENDRANATH LAKSHMIPATHY . Facility:[facility] Start: 12-31-2022 End: 01-01-[address] EMELY THOMAS Facility:[facility] Start: 12-28-2022 End: 12-28-[address] EMELY THOMAS Facility:[facility] Start: 12-24-2022 End: 12-25-[address] EMELY THOMAS Facility:[facility] Start: 10-07-2022 End: 10-08-2022 ambulatory SHAWNA RUIZ . Facility:[facility] Start: 09-03-2022 Encounter for preprocedural laboratory examination DR YULI LEES . [facility] Start: 09-01-2022 End: 09-01-[address] YULI LEES . Facility:[facility] Start: 08-28-2022 End: 08-29-[address] EMELY THOMAS Facility:[facility] Start: 08-28-2022 End: 08-29-2022 Encounter for preprocedural laboratory examination DR EMELY THOMAS Facility:[facility] Start: 08-11-2022 End: 08-11-[address] YULI LEES . Facility:[facility] Start: 08-08-2022 Encounter for preprocedural cardiovascular examination SHAWNA RUIZ . [facility] Start: 08-07-2022 End: 08-08-[address] [...] Start: 04-27-2017 End: 04-27-2017 Ambulatory EMRE STAPLETON [facility] Procedures Date Procedure Procedure Detail Performing Clinician [...] 1 Payers Date Payer Category Payer Unknown [id number] 1957 [facility] [id number] 1957 Medicare [id number] 2.1 [id number] 1959 Unknown [id number] 1945 Unknown [id number] 2.16.84 0.1.070062.3.579.2.593 1947 Unknown [id number] 2.16.84 0.1.815368.3.579.2.593 1947 Unknown [id number] 2.16.84 0.1.583017.3.579.2.593 1947 Unknown [id number] 2.16.84 0.1.473931.3.579.2.593 1947 Unknown [id number] 2.16.84 0.1.706250.3.579.2.593 1947 Unknown [id number] 2.16.84 0.1.990907.3.579.2.593 1947 Unknown [id number] 2.16.84 0.1.758756.3.579.2.593 1947 Unknown [id number] 2.16.84 0.1.678169.3.579.2.593 1947 Unknown [id number] 2.16.84 0.1.987066.3.579.2.593 1947 Unknown [id number] 2.16.84 0.1.905312.3.579.2.593 1947 Unknown [id number] 2.16.84 0.1.659275.3.579.2.593 1947 Unknown [id number] 2.16.84 0.1.407868.3.579.2.593 1947 Unknown [id number] 2.16.84 0.1.877183.3.579.2.593 1947 Unknown [id number] 2.16.84 0.1.180112.3.579.2.593 1947 Unknown [id number] 2.16.84 0.1.764895.3.579.2.593 1947 Unknown [id number] 2.16.84 0.1.421480.3.579.2.593 1947 Unknown [id number] 2.16.84 0.1.636059.3.579.2.593 1947 Unknown [id number] 2.16.84 0.1.014438.3.579.2.593 1947 Unknown [id number] 2.16.84 0.1.540998.3.579.2.593 1947 Unknown [id number] 2.16.84 0.1.270028.3.579.2.593 1947 Unknown [id number] 2.16.84 0.1.806894.3.579.2.593 1947 Unknown [id number] 2.16.84 0.1.120437.3.579.2.593 1947 Unknown [id number] 2.16.84 0.1.880562.3.579.2.593 1947 Unknown [id number] 2.16.84 0.1.466939.3.579.2.593 1947 Unknown [id number] 2.16.84 0.1.431139.3.579.2.593 1947 Unknown [id number] 2.16.84 0.1.564781.3.579.2.1259 1947 Unknown [id number] 2.16.84 0.1.034779.3.579.2.1259 1947 Unknown [id number] 2.16.84 0.1.393635.3.579.2.1259 1947 Unknown [id number] 2.16.84 0.1.862036.3.579.2.1259 1947 Unknown [id number] 2.16.84 0.1.976104.3.579.2.1259 1947 Unknown [id number] 2.16.84 0.1.869774.3.579.2.1259 1947 Unknown [id number] 2.16.84 0.1.462729.3.579.2.1259 1947 Unknown [id number] 2.16.84 0.1.246216.3.579.2.1259 1947 Unknown [id number] 2.16.84 0.1.498984.3.579.2.1259 Social History Date Type Detail Facility Unknown if ever smoked [facility] Other Sex Assigned At Sex Assigned At Bir th [facility] Other Clinical Notes 03-05-2022 to 06-30-2023 Note Date & Type Note Facility 06-30-2023 Evaluation note Encounter Date Diagnosis Assessment Notes Jun, Acute non-recurrent maxillary sinusitis (ICD-10 - J01.00) Finish antibiotic, stay hydrated. Ok for NSAIDs for head pressure. Call if no improvement. [facility] Other 08-17-2023 NoteSUBJECTIVE: Chief complaint: Back and right leg pain. History of present illness: Consultation referred by pain management, Dr. Layton of [facility]. Patient reports chronic low back pain [...] found for any pre (more content not included)...[facility]08-17-2023 NoteSubjective: HPI: Letty Coffey is a 77 [...] and assess x-rays of back. Malina Mckeon MS3[facility]07-18-2023 Evaluation note* Encounter Date Diagnosis Assessment Notes [...] is busy with other appts right now. [facility] Other 06-22-2023 Evaluation note* Encounter Date Diagnosis [...] long as possible before considering surgical intervention. [facility] Other 05-04-2023 NoteCONSULTATION CONSULTATION DATE: 01/28/2023 TO: [...] our patients to inform us about any jovr-sng-dtmnunc medications or herbal remedies/nutritional supplements/alternative remedies. 2. [...] treatment options with their primary care provider.[id number] Evaluation note * Encounter Date Diagnosis Assessment Notes Treatment Notes Treatment Clinical Notes Dec, Essential (primary) hypertension (ICD-10 - I10) new problem. rx handwritten. f/u 6 weeks. Dec, Other chronic pain (ICD-10 - G89.29) Dec, Pain in left shoulder (ICD-10 - M25.512) PT order given to pt. [facility] Other 04-06-2023 NoteCONSULTATION CONSULTATION DATE: 12/31/2022 TO: [...] our patients to inform us about any dhqg-cnp-xfdslnl medications or herbal remedies/nutritional supplements/alternative remedies. 2. [...] treatment options with their primary care provider.[id number] Note CONSULTATION PROCEDURE DATE: 10/07/2022 PREOPERATIVE DIAGNOSIS: [...] fan-like pattern. Patient tolerated the procedure well.[id number] NoteCONSULTATION CONSULTATION DATE: 10/07/2022 HISTORY OF PRESENT [...] sitting does decrease her pain. Medications include okik-lvu-rlflnqi Tylenol and the use of Salonpas patches. [...] otherwise indicated. Patient agrees with this plan.[facility] [id number] NoteCONSULTATION CONSULTATION DATE: 07/30/2022 This is a [...] be followed up at the office thereafter.[id number] NoteCONSULTATION CONSULTATION DATE: 06/25/2022 HISTORY OF PRESENT [...] patient is in agreement with this plan.[id number] NoteCONSULTATION CONSULTATION DATE: 05/19/2022 CHIEF COMPLAINT: Right [...] like to proceed. CC: Emely Thomas M.D.[facility] [id number] NoteCONSULTATION PROCEDURE DATE: 04/28/2022 PREOPERATIVE DIAGNOSIS: Right [...] Will be followed up in the office.[id number] NoteCONSULTATION CONSULTATION DATE: 04/28/2022 CHIEF COMPLAINT: Right [...] like to proceed. CC: Emely Thomas M.D.[facility] HospitalDszmtmuj63-76-1164 NotePROCEDURE: XR HIP RT 2 3V W PELVIS COMPARISON: None. HISTORY: Arthropathy FINDINGS: BONES:No acute fracture or dislocation. Mild osteoarthropathy with marginal osteophyte formation. 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 No visible soft tissue swelling. EFFUSION:None visible. OTHER: Negative. 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Evaluation noteNo InformationNor[facility] [employer] Other History general Narrative - Reported* Type [...] History COLONOSCOPY Hospitalization History SEE SURGICAL HX [facility] Other History general Narrative - Reported* Type [...] growth surgery Hospitalization History SEE SURGICAL HX [facility] Other Summary Purpose Family History No Family History Records FoundNo Family History Records FoundNo Family History Records FoundNo Family History Records Found Advance Directives No Advanced Directives Records FoundNo Advanced Directives Records FoundNo Advanced Directives Records FoundNo Advanced Directives Records Found Additional Source Comments INFORMATION SOURCE (unrecogn ized section and content) DATE CREATED AUTHOR 03/23/2018 [facility] DATE CREATED AUTHOR AUTHOR'S ORGANIZ ATION 02/10/2023 [facility] DATE CREATED AUTHOR AUTHOR'S ORGANIZ ATION 05/19/2023 [facility] DATE CREATED AUTHOR AUTHOR'S ORGANIZ ATION 05/30/2024 [facility] EPIC REASON FOR VISIT [...] BE BASED ON THE PRIMARY CLINICAL RECORDS. [facility] [email or web address] [facility]. provides no warranty or guarantee of the accuracy or completeness of information in this document.
--- NOTE | 2024-06-07 12:04 | PM.CN ---
Consult Note: HPI Data of Consult Patient: known to practice within the last 3 years Consult date: 02/26/23 Requesting Physician: Bessy Johnson NP Primary Care Provider: KIEL ALMODOVAR Consult Narrative Reason for consult: back pain Narrative: Letty is here for f/u for low back pain with right sided radiculopathy greater than 1 year. Prior lumbar MRI consistent with scoliosis, lumbar stenosis, spinal cord tightly pulled against right side of central canal with compression at L3-4, multilevel foraminal stenosis and facet arthropathy. Patient has been evaluated by NS in the past but no surgical intervention was recommended, most recently met with Dr Carbone who does not recommend surgery as benefits do not outweigh the risks. Patient has failed to benefit from numerous injections including 2 LCIH nerve blocks, L4-5 L5-S1 facet medial branch blocks, and lumbar ESIs. Most recently underwent caudal EDWIN with 10% improvement per patient. Pain today 23-4/10 increasing to 8/10 with activity, standing, twisting, walking, stairs, housework, improved with sitting. denies loss of bowel/bladder. denies falls. Patient finds mild benefit from ibuprofen, tylenol, baclofen, and tramadol 50-100mg bid PRN. cc:: CC: Bessy Johnson NP Review of Systems ROS Status of ROS 10 or more systems reviewed and unremarkable except as noted in history and below Musculoskeletal Reports: back pain and extremity pain PFSH PFSH Medical History Osteoarthritis ?M19.90 - Unspecified osteoarthritis, unspecified site (ICD-10) Low back pain ?M54.50 - Low back pain, unspecified (ICD-10) Hiatal hernia ?K44.9 - Diaphragmatic hernia without obstruction or gangrene (ICD-10) Obesity ?E66.9 - Obesity, unspecified (ICD-10) Heart murmur ?R01.1 - Cardiac murmur, unspecified (ICD-10) Surgical History History of ear surgery ?Z98.890 - Other specified postprocedural states (ICD-10) History of phacoemulsification of cataract with intraocular lens implantation ?Z98.49 - Cataract extraction status, unspecified eye (ICD-10) ?Z96.1 - Presence of intraocular lens (ICD-10) Hx of appendectomy ?Z90.49 - Acquired absence of other specified parts of digestive tract (ICD-10) H/O: hysterectomy ?Z90.710 - Acquired absence of both cervix and uterus (ICD-10) History of tonsillectomy ?Z90.89 - Acquired absence of other organs (ICD-10) Meds Home Medications and Allergies Home Medications ?Medication ?Instructions ?Recorded ?Confirmed ?Type aspirin 81 mg tablet,delayed 81 mg PO DAILY 02/26/23 02/03/24 History release (Adult Low Dose Aspirin) denosumab 60 mg/mL subcutaneous 60 mg subcut .Q6 MONTHS 02/26/23 02/03/24 History syringe (Prolia) niacin 500 mg tablet 500 mg PO DAILY 02/26/23 02/03/24 History zonisamide 50 mg capsule 100 mg PO .hs 02/26/23 02/03/24 History baclofen 10 mg tablet 10 mg PO BID 03/01/23 02/03/24 History losartan 25 mg tablet 25 mg PO DAILY 03/01/23 02/03/24 History antiarthritic combination no.2 900 2 mg PO DAILY 07/15/23 02/03/24 History mg tablet (glucosamine-chondroitin) calcium carbonate 600 mg-vitamin 2 cap PO DAILY 07/15/23 02/03/24 History D3 5 mcg (200 unit) capsule (Calcium 600 + D(3)) magnesium glycinate 100 mg (as 100 mg PO BID 07/15/23 02/03/24 History glycinate) tablet (Mag Glycinate) multivitamin (Daily Multi-Vitamin 1 tab PO DAILY 07/15/23 02/03/24 History tablet) omega 0-gwl-odv-fish oil 1,200 mg 2 cap PO DAILY 07/15/23 02/03/24 History (144 mg-216 mg) capsule (Fish Oil) vit C 250 mg-vit E 90 mg-zinc 40 1 tab PO BID 07/15/23 02/03/24 History mg-copper 1 oz-hdbnlp-wbcfer capsule (PreserVision AREDS-2) vit C 250 mg-vit E 90 mg-zinc 40 1 tab PO BID 07/15/23 02/03/24 History mg-copper 1 cw-uagjxc-bzvfmu capsule (PreserVision AREDS-2) vitamin K2 100 mcg capsule 100 mcg PO DAILY 07/15/23 02/03/24 History cholecalciferol (vitamin D3) 50 2,000 unit PO BID 01/11/24 02/03/24 History mcg (2,000 unit) capsule (Vitamin D3) tramadol 50 mg tablet 50 mg PO BID 01/25/24 01/25/24 History tramadol 50 mg tablet 50 mg PO BID PRN pain #60 tabs 01/27/24 02/03/24 Rx tramadol 50 mg tablet 50 mg PO BID PRN pain #60 tabs 04/03/24 Rx zonisamide 50 mg capsule 150 mg (3 x 50 mg) PO .hs #270 caps 04/03/24 Rx tramadol 50 mg tablet 50 mg PO BID PRN pain #60 tabs 06/02/24 Rx Allergies Allergy/AdvReac Type Severity Reaction Status Date / Time No Known Drug Allergies Allergy Verified 02/03/24 08:07 Exam Constitutional Documenting provider has reviewed patient's vital signs: yes Common normals: no apparent distress, oriented x3, healthy appearing, alert and well nourished General appearance: cooperative HENMT Common normals: normocephalic, hearing grossly normal bilaterally and moist oral mucous membranes Head and scalp: normocephalic Eye Common normals: PERRL Pupil: PERRL Neck & C-Spine Common normals: full ROM General: normal visual inspection Chest Common normals: inspection of chest normal Respiratory Common normals: normal respiratory effort, no retractions and no use of accessory muscles Back & Pelvis Lumbar spine/lower back: ROM limited, pain with ROM and straight leg raise positive right Sacroiliac joints: SI joint(s) abnormal Other: right positive angel(patricks), gaenslens, thigh thrust, compression test positive facet loading radiculopathy following L3,4,5 right leg strength 4/5 in right leg 5/5 in left leg Extremity Common normals: normal to inspection and full ROM Neuro Common normals: oriented x3, CN's II-XII intact bilaterally, moves all extremities, no focal motor deficits, no sensory deficits noted and deep tendon reflexes 2+ bilaterally Sensorium/orientation: alert Motor exam: strength 5/5 throughout and no movement abnormalities noted Psych Common normals: mental status grossly normal, thought process normal, cooperative, affect normal, speech normal and activity/motor behavior normal Speech: normal speech Thought process: normal thought process Results Additional Findings Additional findings: If on a controlled substance or opioids, I have checked an [place]AR[place] report on this patient and there are no aberrancies noted in the prescribing history.??If on a controlled substance or opioid a drug screen was completed and reviewed within the last year, and if there has not been a drug screen completed we ordered one today to monitor higher risk, state monitored pain medication use. As part of providing excellent, safe, comprehensive care, the following was completed at our patient's visit: 1. A medication reconciliation and review to ensure accurate knowledge of current/active medications, including asking our patients to inform us about any lmhj-cim-iqophhp medications or herbal remedies/nutritional supplements/alternative remedies. 2. A review to specifically ensure our patients have had annual screening for screening for depression, screening for tobacco use, and screening for unhealthy alcohol use. For concerning screenings had a discussion with the patient, provided patient education, and recommended follow-up with primary care provider when appropriate. If patient noted with a risk of falling, they received education on strength, gait, and balance training to prevent future risk of falling. Assessment and Plan Assessment and Plan (1) Lumbar radiculopathy: (2) Lumbar spondylosis: (3) Lumbar stenosis with neurogenic claudication: (4) Chronic low back pain with right-sided sciatica: (5) Chronic prescription opiate use: Assessment and Plan: I feel these medications are improving the patient's quality of life and allow them to tolerate activities of daily living as well as participate in recreational activity.? The patient does not report intolerable side effects. The patient is NOT opioid naive and non-pharmacologic and non-opioid treatment has failed to significantly relieve the patient's pain and improve functionality. The patient has a diagnosis that is related to a somatic or visceral pain etiology. ? ?? I reviewed with the patient the potential risks and side effects with the use of? opioid medications including but not limited to respiratory depression,? sedation, and even . I verified the patient has access to naloxone should? these effects occur. I advised the patient to avoid the use of any other? sedation substances including alcohol, THC, and benzodiazepines while? taking opioid medications due to the risk of compounding side effects and? detrimental outcomes. I reviewed the [employer], pain treatment agreement, urine? drug screen, and opioid start talking forms. The patient was advised to let? their family know they had Naloxone in case they would need to administer? the medication.? ?? A drug screen was completed within the last year, and no aberrancies were noted regarding their use of controlled substances. The patient understands they are subject to the terms and conditions of the pain contract that they have signed. ? ?? I have checked an OARRS report on this patient today and there are no aberrancies noted in the prescribing history.? Plan update UDS today risks vs benefits discussed, increase tramadol 50-100mg BID PRN max 150mg daily for moderate to severe pain narcan discussed and prescribed continue HEP as tolerated f/u 3 months for medication management, sooner if needed
== END 2024-06-07 11:31 | disposition home or self-care (01) ==
LOC: PM 11:30
PROVIDERS: PCP Nurse Practitioner Family; Visit Provider Nurse Practitioner
DX: M54.16 Radiculopathy, lumbar region (principal); M47.816 Spondylosis without myelopathy or radiculopathy, lumbar region; M48.062 Spinal stenosis, lumbar region with neurogenic claudication; M54.50 Low back pain, unspecified; Z79.891 Long term (current) use of opiate analgesic
CPT/HCPCS: G0463

== ENCOUNTER 2024-08-03 09:02 | Outpatient (OUT) | payer MEDICARE, BC, SELFPAY ==
--- OUTSIDE RECORDS SUMMARY | 2024-08-03 09:18 | XMS_ITS | CCD ---
Author Organization [facility] Care Team Providers Care Quality Control Director Name Role Phone DARA EMRE Mario Alberto [...] MARTHA, DR EMELY Becker Primary Care Unavailable HAMMOND, DR YOUSUF Ferguson Consulting Unavailable MARTHA, DR EMELY Becker Admitting Unavailable MARTHA, DR EMELY Becker Primary [...] LEES ., DR YULI Nguyen Attending Unavailable HAMMOND, DR YOUSUF Ferguson Consulting Unavailable THOMAS, DR [...] Unavailable OVITT, Referring Unavailable OVITT, Attending Unavailable Kimber Price MD Unavailable Wiley Price MD Primary Care Provider DUSTY NASSAR Attending Unavailable DUSTY NASSAR Attending Unavailable DUSTY NASSAR Attending Unavailable DUSTY NASSAR Attending Unavailable DUSTY NASSAR Attending Unavailable DUSTY NASSAR Attending Unavailable DUSTY NASSAR Attending Unavailable KRISS VELEZ Attending Unavailable KRISS VELEZ Referring Unavailable DUSTY NASSAR Attending Unavailable DUSTY NASSAR Attending Unavailable Allergies Allergy Classification Reported Allergen(s) Allergy Type Date of Onset Reaction(s) Facility (1 source) ALLERGIES NOT ON FILE; Translations: [ALLERGIES NOT ON FILE] Propensity to adverse reactions (disorder) [facility] Repository Medications Current Medications Medication Drug Class(es) [...] / zinc oxide 17.4 mg oral capsule (7 sources) Vitamin C Multiple Vitamins-Mineral s (PreserVision AREDS 2) capsule 1 (one) time each day at the same time Active PreserVision ARE DS 2 - as directed Orally Active aspirin 81 mg delayed release oral tablet (7 sources) Platelet Aggregation Inhibitor, Nonsteroidal Anti-inflammatory Drug aspirin 81 MG EC tab let 1 (one) time each day at the same time Active take 1 tablet by mouth once ginger y Aspirin 81 81 MG 1 tablet Orally Once a day Active baclofen 10 mg oral tablet (8 sources) gamma-Aminobutyric Acid-ergic Agonist Start: 04-30-2023 baclofen (Lioresal) 10 MG tablet every 12 (twelve) hours 04/30/2023 Active take 1 tablet by mouth every twe lve hours Baclofen 10 MG 1 tablet as needed Orally Twice a day Active calcium carbonate 1500 mg oral tablet (7 sources) take 1 tablet by arminda th once at mealtime calcium carbonate (Super Calcium) 1500 (600 Ca) MG tablet 1 tablet with meals Orally Once Active take 1 tablet by mouth every twe lve hours Calcium 600 MG 1 tablet with meals Orally Twice a day Active cholecalciferol 0.025 mg ora l tablet (7 sources) Vitamin D cholecalciferol (Vitamin D3) 25 MCG (1000 UT) tablet 1 (one) time each day at the same time Active take 1 tablet by arminda th every twenty-four hours Vitamin D 50 MCG (2000 UT) 1 tablet Orally Once a day Active chondroitin sulfates 400 mg / glucosamine sulfate 500 mg / methylsulfonylmethane 167 mg oral tablet (2 sources) Glucosamine-Eugene droitin-MSM (Fzehaz-Hooer-VCF-Double Str) 500-400-167 MG tablet every 12 (twelve) hours Active 1 ml denosumab 60 mg/ml prefilled syringe (8 sources) RANK Ligand Inhibitor denosumab (Prolia) 6 0 MG/ML solution prefilled syringe as directed Subcutaneous Active Fish Oils (5 sources) take 1 capsule by mouth once daily Fish Oil 1000 MG 1 capsule Orally Once a day Active Nnfapf-Wijq-ICS-Ca-C-CtCl -SeCu - (5 sources) Ukdcne-Crdw-WYI- Un-Q-EyOm-SeCu - as directed Orally Active losartan potassium 25 mg oral tablet (8 sources) Angiotensin 2 Receptor Héctor Star t: 12-27 losartan (Cozaar) 25 MG tabl et Oral for 90 Days 02/19/2023 Active Magnesium glycinate (7 sources) Magnesium Glycin ate 100 MG capsule 2 capsules 1 (one) time each day at the same time Active Magnesium Glycin ate 100 MG as directed Orally Active Multiple Vitamins-Minerals (Womens 50+ Multi Vitamin) tablet (2 sources) Multiple Vitamins-Minerals (Womens 50+ Multi Vitamin) tablet as directed Orally Active niacin 500 mg oral tablet (7 sources) Nicotinic Acid niacin 500 MG ta blet 1 (one) time each day at the same time Active Mcfarland-3 Fatty Acids (Fish Oil) 1200 MG capsule delayed-release (2 sources) take 1 capsule by mouth every twelve hours Mcfarland-3 Fatty Acids (Fish Oil) 1200 MG capsule delayed-release 1 capsule every 12 (twelve) hours Active traMADol hydrochloride 50 mg oral tablet (2 sources) Opioid Agonist Start: 024 take 1 tablet by mouth twice daily as needed for pain traMADol (Ultram) 50 MG tablet TAKE 1 TABLET BY MOUTH TWICE A DAY NEEDED FOR PAIN MUST LAST 30 DAYS 01/27/2024 Active vitamin k 0.1 mg oral tablet (5 sources) Vitamin K2 100 M CG as directed Orally Active vitamin k2 0.1 mg oral capsule (2 sources) Menaquinone-7 (V itamin K2) 100 MCG capsule as directed Orally Active Womens 50+ Multi Vitamin - (5 sources) Womens 50+ Multi Vitamin - as directed Orally Active zonisamide 50 mg oral capsule (7 sources) Anti-epileptic Agent take 3 capsules by mouth once daily at bedtime zonisamide (Zonegran) 50 MG capsule TAKE 3 CAPSULES BY MOUTH EVERY DAY AT BEDTIME Active Zonisamide 50 MG as directed Orally Active Completed/Discontinued Medications Medication Drug Class(es) Dates Sig (Normalized) Sig (Original) 0.05 ml aflibercept 40 mg/ml injection (1 source) Vascular Endothelial Growth Factor Inhibitor Start: 07-25-2024 End: 07-25-2024 2 mg, Intravitreal, Once PRN Procedure, Starting on Wed07/25/24 at 1458, For 1 dose Lidocaine (3 sources) Antiarrhythmic, Amide Local Anesthetic Start: 04-13-2023 Lidocaine Mar, 20 mg triamcinolone acetonide 40 mg/ml injectable suspension (9 sources) Corticosteroid Start: 04-13-2023 Kenalog-40 Mar, 40 mg Problems Active Problems Problem Classification Problem Date Documented Date Episodic/Chronic Cataract (2 sources) 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; Translations: [Other secondary cataract, right eye] Onset: 10-11-2023 10-11-2023 Chronic Disorders of lipid metabolism (6 sources) Hyperlipidemia; [...] unspecified] Chronic Other aftercare (3 sources) 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 D/O BONE DEN STRUCT UNS SITE] Onset: [...] specified mononeuropathies of right lower limb; Translations: [OT SPEC MONONEUROPATH RT LOW LIMB] Onset: 01-12-2023 [...] menopausal state; Translations: [Menopause] Onset: 03-12-2022 Episodic Retinal detachments; defects; vascular occlusion; and retinopathy (5 sources) Exudative age-related macular degeneration; Translations: [Exudative age-related macular degeneration, left eye, with active choroidal neovascularization] Onset: 10-11-2023 Resolved: 02-22-2024 10-15-2023 Chronic Spondylosis; intervertebral disc disorders; other back [...] Classification Problem Date Documented Da te Episodic/Chronic Inflammation; infection of eye (except that caused by tuberculosis or sexually transmitteddisease) (2 sources) 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; Translations: [Unspecified blepharitis right eye, upper and lower eyelids] Onset: 10-11-2023 10-11-2023 Episodic Other connective tissue disease (5 sources) Other muscle spasm; Translations: [OTHER MUSCLE SPASM] Onset: 05-02-2022 Episodic Other connective tissue disease (1 source) Muscle wasting and atrophy, not elsewhere classified, unspecified site; Translations: [MUSCLE WASTING ATROPHY NEC UNS SITE] Onset: 05-21-2022 Episodic Other connective tissue disease (1 source) Sarcopenia; Translations: [SARCOPENIA] Onset: 05-21-2022 Episodic Other eye disorders (2 sources) Dry eyes; Translations: [Dry eye syndrome of bilateral lacrimal glands] Onset: 10-11-2023 10-11-2023 Episodic Other screening for suspected conditions (not [...] Test Name Value Interpretation Reference Range Facility Left eye Ophthalmologic chata tmenton 07-25-2024 [facility] Radiology Study observation (narrative) [facility] Optical coherence tomography study reporton 07-25-2024 [facility] Radiology Study observation (narrative) [facility] 36on 05-17-2023 36 Spoke with patient. Explained [...] refer her to someone who does SCS. Normal [facility] 36on 05-14-2023 36 Left message for an edgardo on identified voicemail that I had reviewed [...] on Wednesday to follow-up regarding this. Normal [facility] Telephoneon 05-14-2023 Telephone [id number] F Date Provider Department Center 05/14/2023 [id number], [facility] Second Fl Family History Problem Relation Age of Onset Other Mother Stomach cancer Father Family Status - Relation Status Age at Mother Father Normal [facility] Consulton 05-13-2023 Consult [id number] Licha ice 1945 F Date Provider Department Center 05/13/2023 [id number], [facility] Second Fl Family History Problem Relation Age of Onset Other Mother Stomach cancer Father Family Status - Relation Status Age at Mother Father Level of Service:41780 [place] OFFICE/OUTPATIENT NEW MODERATE MDM 45-59 MINUTES Reason for Visit and Comments: Consult [484] - Pt is here for a CO visit for Spinal Stenosis. Normal [facility] 36on 04-16-2023 36 LVM for pt to call jose shanks to schedule with or Dr. Lopez for Lunbar Stenosis. Imaging requested from Brent. Normal [facility] MRI LSPINE WO CONon 02-11-20 23 MRI [...] OFE COFFEY Date: 2023-02-10 07:16 Normal [facility] CALCIUMon 12-24-2022 Calcium [Mass/Vol] 9.7 mg/dL Normal 8.5-10.1 [facility] Comment on above: Performed By: #### C Dora, CREA ####[facility] [address] [place] [address]Dr. Holly Phillip CREATININEon 12-24-2022 Creatinine [Mass/Vol] 0.62 mg/dL Normal 0.55-1.02 [facility] Comment on above: Performed By: #### C Dora, CREA ####[facility] [address] [place] [address]Dr. Holly Fisher EGFR-AF VINCENTIAN >60 Normal >=60 [facility] Comment on above: Performed By: #### C Dora, CREA ####[facility] [address] [place] [address]Dr. Holly Fisher EGFR-NON AF VINCENTIAN >60 Normal >=60 [facility] Comment on above: Performed By: #### C Dora, CREA ####[facility] [address] [place] [address]Dr. Holly Fisher Covid-19 PCR ([facility])on SARS-CoV-2 (COVID-19) RNA FRED+probe Ql (Unsp spec) Not detected Normal NOT DETECTED [facility] Comment on above: Result Comment: This test is not yet approved or cleared by the [place] FDA. When there are no FDA-approved or cleared tests available, and other criteria are met, FDA can make tests available under an emergency access mechanism called an Emergency Use Authorization (EUA). The EUA for this test is supported by the [place] of Health and Human Service's (HHS's) declaration [...] with SARS-CoV-2. Performed By: #### C VDTB ####[facility] [address] [place] [address]Dr. Holly Fisher Covid-19 PCR ([facility])on 07-28 SARS-CoV-2 (COVID-19) RNA FRED+probe Ql (Unsp spec) Not detected Normal NOT DETECTED [facility] Comment on above: Result Comment: This test is not yet approved or cleared by the [place] FDA. When there are no FDA-approved or cleared tests available, and other criteria are met, FDA can make tests available under an emergency access mechanism called an Emergency Use Authorization (EUA). The EUA for this test is supported by the [employer] of Health and Human Service's (HHS's) declaration [...] SARS-CoV-2. Performed By: #### C VDTB #### [facility] [address] [place], [place] [address] Dr. Holly Wayne 06-12-2022 Calcium [Mass/Vol] 9.0 mg/dL Normal 8.5-10.1 [facility] Comment on above: Performed By: #### XAVIER HOOD ####[facility] [address] [place], [place] [address]PzDr. Holly Fisher CREATININEon 06-12-2022 Creatinine [Mass/Vol] 0.65 mg/dL Normal 0.55-1.02 [facility] Comment on above: Performed By: #### Jose ALMEIDA, [place] #### [facility] [address] [place], [place] [address] Dr. Holly Fisher EGFR-AF VINCENTIAN >60 Normal >=60 [facility] Comment on above: Performed By: #### C JUAN PABLO [place] #### [facility] [address] [place] [address] [address] Holly Fisher EGFR-NON AF VINCENTIAN >60 Normal >=60 [facility] Comment on above: Performed By: #### XAVIER HOOD #### [facility] [address] [place] [address] [address] Holly Fisher XR LSPINE W_OBLS AND [...] YOUSUF ORTIZ Date: 2022-05-04 08:47 Normal [facility] CBC AUTO DIFFon 03-05-2022 BASO # 0.1 103/ul Normal 0.0-0.1 [facility] Comment on above: Performed By: #### C BC ####[facility] [address] [place] [id number]. Holly Fisher Basophils/100 WBC (Bld) 1.0 % Normal 0.2-2.0 [facility] Comment on above: Performed By: #### C BC ####[facility] [address] [place], [place] [id number]. Holly Fisher EO # 0.2 103/ul Normal 0.0-0.7 [facility] Comment on above: Performed By: #### C BC ####[facility] [address] [place], [place] [id number]. Holly Fisher Eosinophils/100 WBC (Bld) 2.4 % Normal 0.9-7.0 [facility] Comment on above: Performed By: #### C BC ####[facility] [address] [place], [place] [address]Dr. Holly Fisher Erythrocyte distribution width (RBC) [Ratio] 14.4 % Normal 11.0-15.0 [facility] Comment on above: Performed By: #### C BC ####[facility] [address] [place], [place] [address]Dr. Holly Fisher Hematocrit (Bld) [Volume fraction] 41.1 % Normal 36.0-48.0 [facility] Comment on above: Performed By: #### C BC ####[facility] [address] [place], [place] [id number]. Holly Fisher Hemoglobin (Bld) [Mass/Vol] 13.4 g/dL Normal 12.0-16.0 [facility] Comment on above: Performed By: #### C BC ####[facility] [address] [place], [place] [address]Dr. Holly Fisher IG # 0.03 10e3/ul Normal 0.00-0.03 [facility] Comment on above: Performed By: #### C BC ####[facility] [address] [place], [place] [address]Dr. Holly Fisher IG % 0.5 % Normal 0.0-0.5 [facility] Comment on above: Performed By: #### C BC ####[facility] [address] [place] [id number]. Holly Fisher LYMPH # 1.5 103/ul Normal 1.2-3.8 [facility] Comment on above: Performed By: #### C BC ####[facility] [address] [place] [id number]. Holly Phillip Lymphocytes/100 WBC (Bld) 24.3 % Normal 20.5-60.0 [facility] Comment on above: Performed By: #### C BC ####[facility] [address] [place] [id number]. Lindaban Fisher MANUAL DIFF REQ NO Normal [facility] Comment on above: Performed By: #### C BC ####[facility] [address] [place] [id number]. Holly Phillip MCH (RBC) [Entitic mass] 30.3 pg Normal 26.7-34.0 [facility] Comment on above: Performed By: #### C BC ####[facility] [address] [place] [id number]. Holly Fisher MCHC (RBC) [Mass/Vol] 32.6 g/dL Normal 29.9-35.2 [facility] Comment on above: Performed By: #### C BC ####[facility] [address] [place] [id number]. Holly Fisher MCV (RBC) [Entitic vol] 93.0 fL Normal 81.0-99.0 [facility] Comment on above: Performed By: #### C BC ####[facility] [address] [place] [id number]. Holly Phillip MONO # 0.5 103/ul Normal 0.3-0.8 [facility] Comment on above: Performed By: #### C BC ####[facility] [address] [place] [id number]. Holly Phillip Monocytes/100 WBC (Bld) 7.3 % Normal 1.7-12.0 [facility] Comment on above: Performed By: #### C BC ####[facility] [address] [place], [place] [address]Nu. Lindaban Fisher NEUT # 4.1 103/ul Normal 1.4-6.5 [facility] Comment on above: Performed By: #### C BC ####[facility] [address] [place], [place] [address]Ne. Holly Fisher Neutrophils/100 WBC (Bld) 64.5 % Normal 43.0-75.0 [facility] Comment on above: Performed By: #### C BC ####[facility] [address] [place] [id number]. Holly Fisher Platelet mean volume (Bld) [Entitic vol] 10.5 fL Normal 9.5-13.5 [facility] Comment on above: Performed By: #### C BC ####[facility] [address] [place] [id number]. Holly Fisher PLT 253 103/ul Normal 150-450 [facility] Comment on above: Performed By: #### C BC ####[facility] [address] [place] [id number]. Holly Fisher RBC 4.42 106/ul Normal 4.20-5.40 [facility] Comment on above: Performed By: #### C BC ####[facility] [address] [place] [id number]. Holly Fisher WBC 6.3 103/ul Normal 4.0-11.0 [facility] Comment on above: Performed By: #### C BC ####[facility] [address] [place] [id number] Fisher LIPID PROFILEon 03-05-2022 CHOL-HDL RATIO NORM SEE BELOW Normal [facility] Comment on above: Result Comment: 3.3 - 4.4 LOW RISK 4.4 - 7.1 AVERAGE RISK 7.1 - 11.0 MODERATE RISK >11.0 HIGH RISK Performed By: #### L IPID, CMP #### [facility] [address] [place], [place] [address] Dr. Holly Fisher Cholesterol [Mass/Vol] 263 mg/dL Critically high <=200 [facility] Comment on above: Performed By: #### L IPID, CMP #### [facility] [address] [place] [address] [address] Holly Fisher Cholesterol in HDL [Mass/Vol] 63 mg/dL Critically high 40-60 [facility] Comment on above: Performed By: #### L IPID, CMP #### [facility] [address] [place] [address] [address] Holly Fisher Cholesterol in LDL [Mass/Vol] 160.2 mg/dL Normal [facility] Comment on above: Performed By: #### L IPID, CMP #### [facility] [address] [place] [address] Dr. Holly Fisher Cholesterol.total/ Cholesterol in HDL [Mass ratio] 4.2 {ratio} Normal [facility] Comment on above: Performed By: #### L IPID, CMP #### [facility] [address] [place] [address] Dr. Holly Fisher HDL NORMAL > or = 60 mg/dl - LO W CARDIOVASCULAR RISK <40 mg/dl - HIGH CARDIOVASCULAR RISK Normal [facility] Comment on above: Performed By: #### L IPID, CMP #### [facility] [address] [place] [address] Dr. Holly Fisher LDL CALC NORMAL SEE BELOW Normal [facility] Comment on above: Result Comment: <100 mg/dl OPTIMAL 100 - 129 mg/dl NEAR OR ABOVE OPTIMAL 130 - 159 mg/dl BORDERLINE HIGH 160 - 189 mg/dl HIGH >190 mg/dl VERY HIGH Performed By: #### L IPID, CMP #### [facility] [address] [place] [address] Dr. Holly Fisher Triglyceride [Mass/Vol] 199 mg/dL Critically high <=150 [facility] Comment on above: Performed By: #### L IPID, CMP #### [facility] [address] [place] [address] [address] Holly Fisher VLDL CALC 39.8 mg/dL Normal [facility] Comment on above: Performed By: #### L IPID, CMP #### [facility] [address] [place] [address] [address] Holly Fisher MG MAMM SCREEN 3D SHERRIE CADon 03-05-2022 MG MAMM SCREEN 3D SHERRIE CAD Patient: LETTY COFFEY Exam Date: 03/05/2022 : 1945 Gender:F Ordering : DR EMELY THOMAS M.D. Admission #: [id number] Family : Order #: [id number] CLICK HERE TO VIEW EXAM RADIOLOGY REPORT [...] No Treatments None Family Cancers None LOCATION: [facility] BREAST COMPOSITION: Scattered areas fibroglandular density. [...] Ortiz MD on 03/05/2022 at 09:55 Normal [facility] PROF 14(COMP METB)on 022 Albumin [Mass/Vol] 3.9 g/dL Normal 3.4-5.0 [facility] Comment on above: Performed By: #### L IPID, CMP #### [facility] [address] [place] [address] [address] Holly Fisher Albumin/Globulin [Mass ratio] 1.1 {ratio} Normal [facility] Comment on above: Performed By: #### L IPID, CMP #### [facility] [address] [place] [address] [address] Holly Fisher ALP [Catalytic activity/Vol] 54 U/L Normal 46-116 [facility] Comment on above: Performed By: #### L IPID, CMP #### [facility] [address] [place] [address] [address] Holly Fisher ALT [Catalytic activity/Vol] 22 U/L Normal 14-59 [facility] Comment on above: Performed By: #### L IPID, CMP #### [facility] [address] [place] [address] [address] Holly Fisher Anion gap [Moles/Vol] 12.5 mmol/L Normal [facility] Comment on above: Performed By: #### L IPID, CMP #### [facility] [address] [place] [address] [address] Holly Fisher AST [Catalytic activity/Vol] 14 U/L Critically low 15-37 [facility] Comment on above: Performed By: #### L IPID, CMP #### [facility] [address] [place] [address] Dr. Holly Fisher Bilirubin [Mass/Vol] 0.4 mg/dL Normal 0.2-1.0 [facility] Comment on above: Performed By: #### L IPID, CMP #### [facility] [address] [place] [address] Dr. Holly Fisher Calcium [Mass/Vol] 8.6 mg/dL Normal 8.5-10.1 [facility] Comment on above: Performed By: #### L IPID, CMP #### [facility] [address] [place] [address] Dr. Holly Fisher Chloride [Moles/Vol] 106 mmol/L Normal 98-107 [facility] Comment on above: Performed By: #### L IPID, CMP #### [facility] [address] [place] [address] [address] Holly Fisher CO2 [Moles/Vol] 26.8 mmol/L Normal 21.0-32.0 [facility] Comment on above: Performed By: #### L IPID, CMP #### [facility] [address] [place] [address] [address] Holly Fisher Creatinine [Mass/Vol] 0.60 mg/dL Normal 0.55-1.02 [facility] Comment on above: Performed By: #### L IPID, CMP #### [facility] [address] [place] [address] Dr. Holly Fisher EGFR-AF VINCENTIAN >60 Normal >=60 [facility] Comment on above: Performed By: #### L IPID, CMP #### [facility] [address] [place] [address] Dr. Holly Fisher EGFR-NON AF VINCENTIAN >60 Normal >=60 [facility] Comment on above: Performed By: #### L IPID, CMP #### [facility] [address] [place] [address] Dr. Holly Fisher Globulin (S) [Mass/Vol] 3.4 g/dL Normal [facility] Comment on above: Performed By: #### L IPID, CMP #### [facility] [address] [place] [address] Dr. Holly Fisher Glucose [Mass/Vol] 98 mg/dL Normal 74-106 [facility] Comment on above: Performed By: #### L IPID, CMP #### [facility] [address] [place] [address] Dr. Holly Fisher Potassium [Moles/Vol] 4.3 mmol/L Normal 3.5-5.1 [facility] Comment on above: Performed By: #### L IPID, CMP #### [facility] [address] [place] [address] Dr. Holly Fisher Protein [Mass/Vol] 7.3 g/dL Normal 6.4-8.2 [facility] Comment on above: Performed By: #### L IPID, CMP #### [facility] [address] [place] [address] Dr. Holly Fisher Sodium [Moles/Vol] 141 mmol/L Normal 136-145 [facility] Comment on above: Performed By: #### L IPID, CMP #### [facility] [address] [place] [address] Dr. Holly Fisher Urea nitrogen [Mass/Vol] 14.0 mg/dL Normal 7.0-18.0 [facility] Comment on above: Performed By: #### L IPID, CMP #### [facility] [address] [address] [address] Holly Fisher Urea nitrogen/Creatinin e [Mass ratio] 23.3 mg/mg Normal [facility] Comment on above: Performed By: #### L IPID, CMP #### [facility] [id number] Holly Fisher XR DEXA BONE DENSITYon [...] by: YOUSUF ORTIZ Date: 2022-03-05 10:00 Normal [facility] History and Physicalon 04-27 HIM IP Note OR [employer] Normal [facility] OPERATIVE REPORTon [facility] : 49[facility] REC NO: [id number] ROOM:ACCOUNT NO: [id number] ADMISSION DATE: 04/27/17PHYSICIAN: EMRE STAPLETONDATE OF PROCEDURE: [...] used to engage the membrane in a eopoc-dyb-nzaf technique andthe membrane was elevated from the [...] theprocedure well without complications.EMRE DANIELBSD:04/27/2017 9:59:31 CD/[id number]_TJob#: [id number] Doc#: [id number] [facility] Vital Signs Date Time Vital Sign Value Performing Clinician Facility 06-30-2023 09:15-0400 Body height 158.75 cm Emely Thomas Other [email or web address] Other 06-30-2023 09:15-0400 Body mass index (BMI) [Ratio] 30.95 kg/m2 Emely Thomas Other [email or web address] Other 06-30-2023 09:15-0400 Body temperature 96.5 [degF] Emely Thomas Other [email or web address] Other 06-30-2023 09:15-0400 Body weight 78.02 kg Emely Thomas Other [email or web address] Other 06-30-2023 09:15-0400 Diastolic blood pressure 76 mm[Hg] Emely Thomas Other [email or web address] Other 06-30-2023 09:15-0400 Systolic blood pressure 156 mm[Hg] Emely Thomas Other [email or web address] Other 04-13-2023 15:00-0400 Body height 158.75 cm Emely Thomas Other [email or web address] Other 04-13-2023 15:00-0400 Body mass index (BMI) [Ratio] 31.49 kg/m2 Emely Thomas Other [email or web address] Other 04-13-2023 15:00-0400 Body weight 79.38 kg Emely Thomas Other [email or web address] Other 04-13-2023 15:00-0400 Diastolic blood pressure 78 mm[Hg] Emely Thomas Other [email or web address] Other 04-13-2023 15:00-0400 Systolic blood pressure 135 mm[Hg] Emely Thomas Other [email or web address] Other 03-18-2023 08:40-0400 Body height 158.75 cm Ej Thomas Other [email or web address] Other 03-18-2023 08:40-0400 Body mass index (BMI) [Ratio] 31.67 kg/m2 Ej Thomas Other [email or web address] Other 03-18-2023 08:40-0400 Body weight 79.83 kg Ej Thomas Other [email or web address] Other 03-18-2023 08:40-0400 Diastolic blood pressure 84 mm[Hg] Ej Thomas Other [email or web address] Other 03-18-2023 08:40-0400 Systolic blood pressure 134 mm[Hg] Ej Thomas Other [email or web address] Other 01-21-2023 11:00-0400 Body height 158.75 cm Emely Thomas Other [email or web address] Other 01-21-2023 11:00-0400 Body mass index (BMI) [Ratio] 32.21 kg/m2 Emely Thomas Other [email or web address] Other 01-21-2023 11:00-0400 Body weight 81.19 kg Emely Thomas Other [email or web address] Other 01-21-2023 11:00-0400 Diastolic blood pressure 82 mm[Hg] Emely Thomas Other [email or web address] Other 01-21-2023 11:00-0400 SaO2% (BldA) [Mass fraction] 97 % Emely Thomas Other [email or web address] Other 01-21-2023 11:00-0400 Systolic blood pressure 142 mm[Hg] Emely Thomas Other [email or web address] Other Encounters Encounter Date Encounter Type Care Provider Facility Start: 07-25-2024 End: 07-25-2024 Bamboo flowsheet Dusty D Zahler DO Work Phone: [facility] Start: 07-25-2024 End: 07-25-2024 Bamboo flowsheet Dusty D Zahler DO Work Phone: [facility] Start: 07-25-2024 End: 07-25-2024 Clinical Support Dusty D Zahler DO Work Phone: [facility] Comment on above: Macular Degeneration ; Retinal Injection Start: 05-30-2024 End: 05-30-2024 ambulatory DUSTY D ZAHLER Not Available Start: 05-10-2024 End: 05-10-2024 ambulatory KRISS VELEZ Not Available Start: 04-05-2024 End: 04-05-2024 ambulatory [...] 06-30-2023 End: 06-30-2023 ambulatory Emely Thomas Other [email or web address] Other Start: 06-30-2023 Office outpatient vi sit 15 minutes Emely Thomas [facility] Start: 05-18-2023 End: 05-18-2023 ambulatory Emely Thomas Other [email or web address] Other Start: 05-18-2023 Telephone encounter Emely Thomas [facility] Start: 05-13-2023 End: 05-14-2023 ambulatory [facility] Start: 05-13-2023 End: 05-13-2023 ambulatory [facility] Start: 04-16-2023 End: 04-17-2023 ambulatory [facility] Start: 04-13-2023 End: 04-13-2023 ambulatory Emely Thoams Other [email or web address] Other Start: 04-13-2023 Office outpatient vi sit 15 minutes Emely Thomas [facility] Start: 04-05-2023 End: 04-05-2023 ambulatory Ej Thomas Other [email or web address] Other Start: 04-05-2023 Telephone encounter Ej Thomas [facility] Start: 03-18-2023 End: 03-18-2023 ambulatory Ej Thomas Other [email or web address] Other Start: 03-18-2023 Office outpatient ne w 30 minutes Ej Thomas [facility] Start: 02-09-2023 End: 02-10-2023 ambulatory NARENDRANATH LAKSHMIPATHY . Facility:[facility] Start: 02-01-2023 ambulatory NARENDRANATH LAKSHMIPATHY . Facility:[facility] Start: 01-28-[address] EMELY THOMAS Facil ity:[facility] Start: 01-28-2023 End: 01-29-2023 ambulatory NARENDRANATH LAKSHMIPATHY . Facility:[facility] Start: 01-21-2023 End: 01-21-2023 ambulatory Emely Thomas Other [email or web address] Other Start: 01-21-2023 Office outpatient vi sit 15 minutes Emely Thomas [facility] Start: 01-12-2023 End: 01-12-2023 ambulatory AURAMUNAVINAY BUCKLEYMIPATHY . Facility:[facility] Start: 12-31-2022 End: 01-01-[address] EMELY THOMAS Facility:[facility] Start: 12-28-2022 End: 12-28-[address] EMELY THOMAS Facility:[facility] Start: 12-24-2022 End: 12-25-[address] EMELY THOMAS Facility:[facility] Start: 10-07-2022 End: 10-08-2022 ambulatory SHAWNA RUIZ . Facility:[facility] Start: 09-03-2022 Encounter for preprocedural laboratory examination DR YULI LEES . [facility] Start: 09-01-2022 End: 09-01-[address] YULI LEES . Facility:[facility] Start: 08-28-2022 End: 08-29-[address] EMELY THOMAS Facility:[facility] Start: 08-28-2022 End: 08-29-2022 Encounter for preprocedural laboratory examination DR EMELY THOMAS Facility:[facility] Start: 08-11-2022 End: 08-11-[address] YULI LEES . Facility:[facility] Start: 08-08-2022 Encounter for preprocedural cardiovascular examination SHAWNA RUIZ . [facility] Start: 08-07-2022 End: 08-08-[address] EMELY [...] Start: 04-27-2017 End: 04-27-2017 Ambulatory EMRE STAPLETON [facility] Procedures Date Procedure Procedure Detail Performing Clinician Start: 07-25-2024 Intravitreal njx pharmacologic agt spx Dusty Nassar DO Work Phone: Start: 07-25-2024 Computerized ophthal jing imaging retina Dusty Nassar DO Work Phone: Start: 04-27-2017 DISCHARGE PATIENT CHARJoseph SANTAMARIA DARA Start: 04-27-2017 BEDREST EMRE BYNUM [...] Treatment Date Care Activity Detail Author Start: 05-24-2025 End: 05-24-2025 Patient encounter procedure 05/24/2025 10:00 AM EDT Office Visit [facility] [address] [place] [address] Kriss Velez DO [address] [place] [address] [facility] Start: 07-25-2024 End: 07-25-2024 Clinical Support 07/25/2024 1:45 PM EDT Clinical Support [facility] [address] [place] [id number] Dusty Nassar DO [address] [place] [address] Arrived [facility] Comment on above: Arrived Start: 05-28-2024 Influenza vaccination Influenza Vacc ine (#1) [facility] Start: 02-26-2023 ambulatory Ambulatory Facility:[facility] 1 Intravitreal Injection, Pharmacologic Agent - OD - Right Eye Intravitreal Injection, Pharmacologic Agent - OD - Right Eye Ophthalmology Routine 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 eye with active choroidal neovascularization (HCC) (CMS/HCC) Ordered: 07/25/2024 [facility] Work Phone: Comment on above: Ordered: 07/25/2024 Immunizations Immunization Date Immunization Notes Care Provider Fa cility 07-26-2023 influenza virus vacc ine, unspecified formulation Dusty Nassar DO Work Phone: [facility] Payers Date Payer Category Payer [facility] [id number] 2017 Medicare MEDICARE [id number] 2014 Unknown [id number] 1959 [employer] [place] [employer] [facility] [id number] 2.16.840.1.541828.19 1957 Medicare [id number] 2.16.840.1.314722. 1959 Unknown [id number] 1945 Unknown [id number] 2.16.840.1.379818.3.579.2. 593 1947 Unknown [id number] 2.16.840.1.382619.3.579.2. 593 1947 Unknown [id number] 2.16.840.1.489878.3.579.2. 593 1947 Unknown [id number] 2.16.840.1.621301.3.579.2. 593 1947 Unknown [id number] 2.16.840.1.614733.3.579.2. 593 1947 Unknown [id number] 2.16.840.1.545792.3.579.2. 593 1947 Unknown [id number] 2.16.840.1.454865.3.579.2. 593 1947 Unknown [id number] 2.16.840.1.873527.3.579.2. 593 1947 Unknown [id number] 2.16.840.1.291627.3.579.2. 593 1947 Unknown [id number] 2.16.840.1.367368.3.579.2. 593 1947 Unknown [id number] 2.16.840.1.142947.3.579.2. 593 1947 Unknown [id number] 2.16.840.1.570511.3.579.2. 593 1947 Unknown [id number] 2.16.840.1.922269.3.579.2. 593 1947 Unknown [id number] 2.16.840.1.338306.3.579.2. 593 1947 Unknown [id number] 2.16.840.1.598454.3.579.2. 593 1947 Unknown [id number] 2.16.840.1.416698.3.579.2. 593 1947 Unknown [id number] 2.16.840.1.207677.3.579.2. 593 1947 Unknown [id number] 2.16.840.1.667734.3.579.2. 593 1947 Unknown [id number] 2.16.840.1.477576.3.579.2. 593 1947 Unknown [id number] 2.16.840.1.726606.3.579.2. 593 1947 Unknown [id number] 2.16.840.1.513735.3.579.2. 593 1947 Unknown [id number] 2.16.840.1.735243.3.579.2. 593 1947 Unknown [id number] 2.16.840.1.050175.3.579.2. 593 1947 Unknown [id number] 2.16.840.1.749314.3.579.2. 593 1947 Unknown [id number] 2.16.840.1.953014.3.579.2. 593 1947 Unknown [id number] 2.16.840.1.938737.3.579.2. 1259 1947 Unknown [id number] 2.16.840.1.106899.3.579.2. 1259 1947 Unknown [id number] 2.16.840.1.366507.3.579.2. 1259 1947 Unknown [id number] 2.16.840.1.886402.3.579.2. 1259 1947 Unknown [id number] 2.16.840.1.311163.3.579.2. 1259 1947 Unknown [id number] 2.16.840.1.677172.3.579.2. 1259 1947 Unknown [id number] 2.16.840.1.374778.3.579.2. 1259 1947 Unknown [id number] 2.16.840.1.674094.3.579.2. 1259 1947 Unknown [id number] 2.16.840.1.163085.3.579.2. 1259 1947 Unknown [id number] 2.16.840.1.354277.3.579.2. 1259 Social History Date Type Detail Facility Unknown if ever smoked [facility] Other Start: 05-30-2024 Sex Assigned At N [facility] Other Start: 10-11-2023 Tobacco smoking status LAIS Never smoked tobacco [facility] Start: 10-11-2023 Tobacco use and exposure Smokeless tobacco non-user [facility] Start: 05-30-2024 History of Social function [facility] Start: 1945 Sex assigned at Not on file [facility] Clinical Notes 03-05-2022 to 07-25-2024 Dusty Nassar DO - 07/25/2024 1:45 PM EDT Note Date & Type Note Facility 07-25-2024 Note Time Out 07/25/2024. 2:58 PM. Confirmed correct patient, procedure, site, and patient consented. Anesthesia Topical anesthesia was used. Anesthetic medications included Lidocaine 2%, Proparacaine 0.5%. Procedure Preparation included 5% betadine to ocular surface, eyelid speculum. Injection: 2 mg aflibercept 2 MG/0.05ML Route: Intravitreal, Site: Left Eye [facility]: 88061-156-31, Lot: [id number], Expiration date: 08/27/2025, Waste: 0 mL Post-op Post injection exam found visual acuity of at least counting fingers, no retinal detachment, perfused optic nerve. The patient tolerated the procedure well. There were no complications. The patient received written and verbal post procedure care education. Post injection medications were not given. Notes Intravitreal antiVEGF Treatment: Risks, benefits and alternatives were discussed for Intravitreal injection with the prescribed antiVEGF agent. With intraocular surgery, there is potential for direct retinal damage through retinal or RPE tear, or infection, with subsequent vision loss. Informative Intravitreal pamphlet provided as well as an OMIC consent. Of course, the treatment may fail to accomplish the overall therapeutic objectives, which is to stall or decrease the amount of retinal edema / bleeding, and therefore stall or improve vision loss. Intravitreal Anti-VEGF: Consent was obtained and questions answered. Operative eye was identified, receiving topical proparacaine, 5% betadine, and 2% xylocaine jelly. A lid speculum was placed and the inferotemp. injection site received additional anesthetic with a proparacaine soaked cotton swab. Using calipers (set at 3.5mm for pseudo and 4mm for phakic), the inferotemp. limbus was measured, sclera marked and 2 additional drops of betadine placed. Avoiding any talking to avoid contamination, intravitreal injection was carried out without difficulty. Any residual amount of medication was discarded appropriately. The patient tolerated the procedure well and instructed to call with increased pain, redness, decreased vision or concerns. [facility] 07-25-2024 Note Right Eye Quality was good. Scan locations included subfoveal. Progression has been stable. Findings include abnormal foveal contour, pigment epithelial detachment. Left Eye Quality was good. Scan locations included subfoveal. Progression has been stable. Findings include abnormal foveal contour. [facility] 10-29-2024 History of Presen t illness Narrative Images from the original note were not included. Assessment/Plan Diagnoses and all orders for this visit: 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 eye with active choroidal neovascularization (CMS/HCC) - OCT, Retina - OU - Both Eyes - Intravitreal Injection, Pharmacologic Agent - OS - Left Eye - aflibercept (Eylea) syringe 2 mg - Switched to Eylea today due to national shortage of Avastin. OCT, Retina - OU - Both Eyes Right Eye Quality was good. Scan locations included subfoveal. Progression has been stable. Findings include abnormal foveal contour, pigment epithelial detachment. Left Eye Quality was good. Scan locations included subfoveal. Progression has been stable. Findings include abnormal foveal contour. Linked Images Intravitreal Injection, Pharmacologic Agent - OS - Left Eye Time Out 07/25/2024. 2:58 PM. Confirmed correct patient, procedure, site, and patient consented. Anesthesia Topical anesthesia was used. Anesthetic medications included Lidocaine 2%, Proparacaine 0.5%. Procedure Preparation included 5% betadine to ocular surface, eyelid speculum. Injection: 2 mg aflibercept 2 MG/0.05ML Route: Intravitreal, Site: Left Eye [facility]: 52496-822-01, Lot: [id number], Expiration date: 08/27/2025, Waste: 0 mL Post-op Post injection exam found visual acuity of at least counting fingers, no retinal detachment, perfused optic nerve. The patient tolerated the procedure well. There were no complications. The patient received written and verbal post procedure care education. Post injection medications were not given. Notes Intravitreal antiVEGF Treatment: Risks, benefits and alternatives were discussed for Intravitreal injection with the prescribed antiVEGF agent. With intraocular surgery, there is potential for direct retinal damage through retinal or RPE tear, or infection, with subsequent vision loss. Informative Intravitreal pamphlet provided as well as an OMIC consent. Of course, the treatment may fail to accomplish the overall therapeutic objectives, which is to stall or decrease the amount of retinal edema / bleeding, and therefore stall or improve vision loss. Intravitreal Anti-VEGF: Consent was obtained and questions answered. Operative eye was identified, receiving topical proparacaine, 5% betadine, and 2% xylocaine jelly. A lid speculum was placed and the inferotemp. injection site received additional anesthetic with a proparacaine soaked cotton swab. Using calipers (set at 3.5mm for pseudo and 4mm for phakic), the inferotemp. limbus was measured, sclera marked and 2 additional drops of betadine placed. Avoiding any talking to avoid contamination, intravitreal injection was carried out without difficulty. Any residual amount of medication was discarded appropriately. The patient tolerated the procedure well and instructed to call with increased pain, redness, decreased vision or concerns. documented in this encounter [facility] 06-30-2023 Evaluation note Encounter Date Diagnosis Assessment Notes Jun, Acute non-recurrent maxillary sinusitis (ICD-10 - J01.00) Finish antibiotic, stay hydrated. Ok for NSAIDs for head pressure. Call if no improvement. [email or web address] Other 08-17-2023 NoteSUBJECTIVE: Chief complaint: Back and right leg pain. History of present illness: Consultation referred by pain management, Dr. Layton of [facility]. Patient reports chronic low back pain for [...] found for any pre (more content not included)...[facility]08-17-2023 NoteSubjective: HPI: Letty Coffey is a 77 [...] and assess x-rays of back. Malina Mckeon MS3[facility]07-18-2023 Evaluation note* Encounter Date Diagnosis Assessment [...] is busy with other appts right now. [email or web address] Other 06-22-2023 Evaluation note* Encounter Date Diagnosis [...] long as possible before considering surgical intervention. [email or web address] Other 05-04-2023 NoteCONSULTATION CONSULTATION DATE: 01/28/2023 TO: [...] our patients to inform us about any lgdi-hfc-wpazzgv medications or herbal remedies/nutritional supplements/alternative remedies. 2. [...] treatment options with their primary care provider.[id number] Evaluation note * Encounter Date Diagnosis Assessment Notes Treatment Notes Treatment Clinical Notes Dec, Essential (primary) hypertension (ICD-10 - I10) new problem. rx handwritten. f/u 6 weeks. Dec, Other chronic pain (ICD-10 - G89.29) Dec, Pain in left shoulder (ICD-10 - M25.512) PT order given to pt. [email or web address] Other 04-06-2023 NoteCONSULTATION CONSULTATION DATE: 12/31/2022 TO: [...] our patients to inform us about any jrgn-qft-btxrexl medications or herbal remedies/nutritional supplements/alternative remedies. 2. [...] treatment options with their primary care provider.[facility] [id number] Note CONSULTATION PROCEDURE DATE: 10/07/2022 PREOPERATIVE DIAGNOSIS: [...] fan-like pattern. Patient tolerated the procedure well.[facility] [id number] NoteCONSULTATION CONSULTATION DATE: 10/07/2022 HISTORY OF PRESENT [...] sitting does decrease her pain. Medications include gziq-rck-knvbiwt Tylenol and the use of Salonpas patches. [...] otherwise indicated. Patient agrees with this plan.[facility] [id number] NoteCONSULTATION CONSULTATION DATE: 07/30/2022 This is a [...] be followed up at the office thereafter.[facility] [id number] NoteCONSULTATION CONSULTATION DATE: 06/25/2022 HISTORY OF PRESENT [...] patient is in agreement with this plan.[facility] [id number] NoteCONSULTATION CONSULTATION DATE: 05/19/2022 CHIEF COMPLAINT: Right [...] like to proceed. CC: Emely Thomas M.D.[facility] [id number] NoteCONSULTATION PROCEDURE DATE: 04/28/2022 PREOPERATIVE DIAGNOSIS: Right [...] Will be followed up in the office.[facility] [id number] NoteCONSULTATION CONSULTATION DATE: 04/28/2022 CHIEF COMPLAINT: Right [...] like to proceed. CC: Emely Thomas M.D.[facility] [id number] NotePROCEDURE: XR HIP RT 2 3V W PELVIS COMPARISON: None. HISTORY: Arthropathy FINDINGS: BONES:No acute fracture or dislocation. Mild osteoarthropathy with marginal osteophyte formation. 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 No visible soft tissue swelling. EFFUSION:None visible. OTHER: Negative. 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 Electronically authenticated by: YOUSUF ORTIZ Date: 2022-03-05 10:09[facility] noteNo InformationNorth [facility] Other evaluation note* Diagnosis 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 eye with active choroidal neovascularization (CMS/HCC)- Primary [facility] N[facility] - Reported* Type Description Date Medical History Osteopenia Medical History COVID Medical History Hyperlipemia Medical History Menopause Medical History Cardiac murmur Medical History Elevated blood pressure reading Medical History Hip pain, right Medical History Medication management Surgical History APPENDECTOMY Surgical History ERINN AND BSO Surgical History TONSILLECTOMY Surgical History TYMPANOPLASTY Surgical History CHOLESTEOTOMA Surgical History COLONOSCOPY Hospitalization History SEE SURGICAL HX [email or web address] Other History general Narrative - Reported* Type [...] growth surgery Hospitalization History SEE SURGICAL HX [email or web address] Other Summary Purpose Family History No Family History Records FoundNo Family History Records FoundNo Family History Records FoundNo Family History Records Found Advance Directives No Advanced Directives Records FoundNo Advanced Directives Records FoundNo Advanced Directives Records FoundNo Advanced Directives Records Found Additional Source Comments INFORMATION SOURCE (unrecogn ized section and content) DATE CREATED AUTHOR 03/23/2018 [facility] DATE CREATED AUTHOR AUTHOR'S ORGANIZ ATION 02/10/[address] [facility] DATE CREATED AUTHOR AUTHOR'S ORGANIZ ATION 05/19/2023 [facility] DATE CREATED AUTHOR AUTHOR'S ORGANIZ ATION 07/27/2024 [facility] Specialists EPIC REASON FOR VISIT (unrecogniz ed section and content) Reason Comments Macular Degeneration Retinal Injection Care Teams (unrecognized sec tion and content) Quality Control Director Relationship Specialty Start Date End Date Wiley Price MD [address] [place] [address] PCP - General Family Medicine 12/10/23 [place] [address] [place] [id number] Referring Physician Family Medicine 10/15/23 Quality Control Director Relationship Specialty Start Date End Date Wiley Price MD [address] [place] [address] PCP - General Family Medicine 12/10/23 Kimber Price MD [address] [place] [address] Referring Physician Family Medicine 10/15/23 FOR RECORDS PERTAINING TO PATIENTS WHO ARE [...] BE BASED ON THE PRIMARY CLINICAL RECORDS. [facility]. provides no warranty or guarantee of the accuracy or completeness of information in this document.
--- NOTE | 2024-08-03 09:33 | P.CN_ITS ---
Consult Note: HPI Data of Consult Patient: known to practice within the last 3 years Consult date: 02/26/23 Requesting Physician: Bessy Johnson NP Primary Care Provider: KIEL ALMODOVAR Consult Narrative Reason for consult: back pain Narrative: Letty is here for f/u for low back pain, left shoulder pain, bilateral hip pain. Prior lumbar MRI consistent with scoliosis, lumbar stenosis, spinal cord tightly pulled against right side of central canal with compression at L3-4, multilevel foraminal stenosis and facet arthropathy. prior bilateral hip xray severe OA, not interested in surgical intervention. Patient has been evaluated by NS in the past but no surgical intervention was recommended, most recently met with Dr Carbone who does not recommend surgery as benefits do not outweigh the risks. Patient has failed to benefit from numerous injections including 2 LCIH nerve blocks, L4-5 L5-S1 facet medial branch blocks, and lumbar ESIs. Most recently underwent caudal EDWIN with 10% improvement per patient. Pain today 5/10 increasing to 8/10 with activity, standing, twisting, walking, stairs, housework, improved with sitting. denies loss of bowel/bladder. denies falls. Patient finds mild benefit from ibuprofen, tylenol, baclofen, zonegran 150mg hs, and tramadol 50-100mg bid PRN. cc:: CC: Bessy Johnson NP Review of Systems ROS Status of ROS 10 or more systems reviewed and unremark able except as noted in history and below Musculoskeletal Reports: back pain, extremity pain and joint pain PFSH PFSH Medical History Osteoarthritis ?M19.90 - Unspecified osteoarthritis, unspecified site (ICD-10) Low back pain ?M54.50 - Low back pain, unspecified (ICD-10) Hiatal hernia ?K44.9 - Diaphragmatic hernia without obstruction or gangrene (ICD-10) Obesity ?E66.9 - Obesity, unspecified (ICD-10) Heart murmur ?R01.1 - Cardiac murmur, unspecified (ICD-10) Surgical History History of ear surgery ?Z98.890 - Other specified postprocedural states (ICD-10) History of phacoemulsification of cataract with intraocular lens implantation ?Z98.49 - Cataract extraction status, unspecified eye (ICD-10) ?Z96.1 - Presence of intraocular lens (ICD-10) Hx of appendectomy ?Z90.49 - Acquired absence of other specified parts of digestive tract (ICD- 10) H/O: hysterectomy ?Z90.710 - Acquired absence of both cervix and uterus (ICD-10) History of tonsillectomy ?Z90.89 - Acquired absence of other organs (ICD-10) Meds Home Medications and Allergies Home Medications ?Medication ?Instructions ?Recorded ?Confirmed ?Type aspirin 81 mg tablet,delayed 81 mg PO DAILY 02/26/23 02/03/24 History release (Adult Low Dose Aspirin) denosumab 60 mg/mL subcutaneous 60 mg subcut .Q6 MONTHS 02/26/23 02/03/24 History syringe (Prolia) niacin 500 mg tablet 500 mg PO DAILY 02/26/23 02/03/24 History baclofen 10 mg tablet 10 mg PO BID 03/01/23 02/03/24 History losartan 25 mg tablet 25 mg PO DAILY 03/01/23 02/03/24 History antiarthritic combination no.2 900 2 mg PO DAILY 07/15/23 02/03/24 History mg tablet (glucosamine-chondroitin) calcium 600 mg (as 2 cap PO DAILY 07/15/23 02/03/24 History carbonate)-vitamin D3 5 mcg (200 unit) capsule (Calcium 600 + D(3)) magnesium glycinate 100 mg (as 100 mg PO BID 07/15/23 02/03/24 History glycinate) tablet (Mag Glycinate) multivitamin (Daily Multi-Vitamin 1 tab PO DAILY 07/15/23 02/03/24 History tablet) omega 3-efo-qaf-fish oil 1,200 mg 2 cap PO DAILY 07/15/23 02/03/24 History (144 mg-216 mg) capsule (Fish Oil) vit C 250 mg-vit E 90 mg-zinc 40 1 tab PO BID 07/15/23 02/03/24 History mg-copper 1 li-mpqywu-dlvpmm capsule (PreserVision AREDS-2) vit C 250 mg-vit E 90 mg-zinc 40 1 tab PO BID 07/15/23 02/03/24 History mg-copper 1 lr-jzxsyr-uwhenr capsule (PreserVision AREDS-2) vitamin K2 100 mcg capsule 100 mcg PO DAILY 07/15/23 02/03/24 History cholecalciferol (vitamin D3) 50 2,000 unit PO BID 01/11/24 02/03/24 History mcg (2,000 unit) capsule (Vitamin D3) tramadol 50 mg tablet 50 mg PO BID PRN pain #60 tabs 06/02/24 Rx zonisamide 50 mg capsule 150 mg (3 x 50 mg) PO .qhs #270 06/30/24 Rx caps Allergies Allergy/AdvReac Type Severity Reaction Status Date / Time No Known Drug Allergies Allergy Verified 02/03/24 08:07 Exam Constitutional Documenting provider has reviewed patient's vital signs: yes Common normals: no apparent distress, oriented x3, healthy appearing, alert and well nourished General appearance: cooperative HENMT Common normals: normocephalic, hearing grossly normal bilaterally and moist oral mucous membranes Head and scalp: normocephalic Eye Common normals: PERRL Pupil: PERRL Neck & C-Spine Common normals: full ROM General: normal visual inspection Chest Common normals: inspection of chest normal Respiratory Common normals: normal respiratory effort, no retractions and no use of accessory muscles Back & Pelvis Lumbar spine/lower back: ROM limited, pain with ROM, straight leg raise positive right and straight leg raise positive left Sacroiliac joints: SI joint(s) abnormal Other: right positive angel(patricks), gaenslens, thigh thrust, compression test positive facet loading Extremity Common normals: normal to inspection and full ROM Left upper extremity: shoulder joint Right lower extremity: hip joint Left lower extremity: hip joint Other: left shoulder positive empty can, posterior liftoff, crossbody adduction and pain with ROM bilateral hips pain with internal and external rotation right >left Neuro Common normals: oriented x3, CN's II-XII intact bilaterally, moves all extremities, no focal motor deficits, no sensory deficits noted and deep tendon reflexes 2+ bilaterally Sensorium/orientation: alert Motor exam: strength 5/5 throughout and no movement abnormalities noted Psych Common normals: mental status grossly normal, thought process normal, cooperative, affect normal, speech normal and activity/motor behavior normal Speech: normal speech Thought process: normal thought process Results Additional Findings Additional findings: If on a controlled substance or opioids, I have checked an [place] report on this patient and there are no aberrancies noted in the prescribing history.??If on a controlled substance or opioid a drug screen was completed and reviewed within the last year, and if there has not been a drug screen completed we ordered one today to monitor higher risk, state monitored pain medication use. As part of providing excellent, safe, comprehensive care, the following was completed at our patient's visit: 1. A medication reconciliation and review to ensure accurate knowledge of current/active medications, including asking our patients to inform us about any zxsa-irf-uysmiqd medications or herbal remedies/nutritional supplements/alternative remedies. 2. A review to specifically ensure our patients have had annual screening for screening for depression, screening for tobacco use, and screening for unhealthy alcohol use. For concerning screenings had a discussion with the patient, provided patient education, and recommended follow-up with primary care provider when appropriate. If patient noted with a risk of falling, they received education on strength, gait, and balance training to prevent future risk of falling. Assessment and Plan Assessment and Plan (1) Osteoarthritis of left shoulder: (2) Bilateral primary osteoarthritis of hip: (3) Lumbar radiculopathy: (4) Chronic prescription opiate use: (5) Lumbar spondylosis: Plan with multifactorial pain pt would like to address left shoulder pain/oa at this time. previously found significant benefit to left shoulder injections with PCP. update left shoulder xray and plan for left shoulder injection in the office with Dr Layton. Pt does have lumbar radiculopathy and BLE pain, however her right hip/groin pain is most significant. hx of severe OA to bilateral hips. could consider right hip injection under fluoroscopy in the future decrease zonegran 100mg HS at this time, has noticed decrease appetite with 150mg HS continue tramadol 50-100mg BID PRN not to exceed 150mg daily, 75 tabs/month. mild constipation otherwise no side effects. can utilize colace PRN or miralax OTC continue baclofen 10mg BID PRN f/u with Dr Layton
== END 2024-08-03 09:03 | disposition home or self-care (01) ==
LOC: PM 09:02
PROVIDERS: PCP Nurse Practitioner Family; Visit Provider Nurse Practitioner
DX: M19.012 Primary osteoarthritis, left shoulder (principal); M54.16 Radiculopathy, lumbar region; M16.0 Bilateral primary osteoarthritis of hip; M47.816 Spondylosis without myelopathy or radiculopathy, lumbar region; Z79.891 Long term (current) use of opiate analgesic
CPT/HCPCS: 73030; G0463

== ENCOUNTER 2024-08-03 09:50 | Outpatient (OUT) | payer MEDICARE, BC, SELFPAY ==
--- NOTE | 2024-08-03 10:01 | XR_ITS ---
[address] [address] Patient Name: GAYATHRI LOPEZ MRN: [id number] date: 1945 Sex: F Assigned Patient Location: [facility] Current Patient Location: [facility] Accession/Order Number: [id number] Exam Date: 08/03/2024 10:07 Report Date: 08/07/2024 08:07 At the request of: MARIPOSA FUENTES Procedure: XR shoulder LT min 2V PROCEDURE: XR shoulder LT min 2V COMPARISON: None. HISTORY: Left Shoulder Osteoarthritis FINDINGS: BONES:No acute fracture or dislocation. Moderate acromioclavicular joint osteoarthritis. Moderate glenohumeral joint osteoarthritis. Degenerative changes of the spine SOFT TISSUES:Negative. No visible soft tissue swelling. EFFUSION:None visible. OTHER: Negative. XR/XR shoulder LT min 2V IMPRESSION: Mild to moderate osteoarthritis Electronically authenticated by: YOUSUF ORTIZ Date: 08/07/2024 08:07
== END 2024-08-03 09:51 | disposition home or self-care (01) ==
LOC: RAD 09:52
PROVIDERS: PCP Nurse Practitioner Family; Visit Provider Nurse Practitioner
DX: M19.012 Primary osteoarthritis, left shoulder (principal)
CPT/HCPCS: 73030

== ENCOUNTER 2024-08-07 08:44 | Outpatient (OUT) | payer MEDICARE, BC, SELFPAY ==
--- NOTE | 2024-08-07 08:46 | XR_ITS ---
The [address] [address] Patient Name: GAYATHRI OLPEZ MRN: [id number] date: 1945 Sex: F Assigned Patient Location: [facility] Current Patient Location: [facility] Accession/Order Number: [id number] Exam Date: 08/07/2024 08:55 Report Date: 08/09/2024 07:30 At the request of: KIEL ALMODOVAR Procedure: XR DEXA axial skeleton EXAMINATION: XR DEXA axial skeleton, 08/07/2024 8:55 AM EST HISTORY: Age Related Osteoporosis COMPARISON: 2021, 2018, 2016. TECHNIQUE: Dual-energy X-ray absorptiometry (DEXA) bone density study performed for the axial skeleton. FINDINGS: Bone mineral density of the left forearm radius is 0.536 g/sq cm. T score -2.5. Osteoporosis. Total femoral bone mineral density is 0.83 g/sq cm. T score -1.4. Osteopenia XR/XR DEXA axial skeleton IMPRESSION: Osteoporosis. High fracture risk Pharmacologic treatment recommendations * No uniform recommendation applies to all patients. Management plans must be individualized. * Consider initiating pharmacologic treatment in postmenopausal women and men >= 50 years of age who have the following: Primary fracture prevention: * T-score <= - 2.5 at the femoral neck, total hip, lumbar spine, 33% radius (some uncertainty with existing data) by DXA. * Low bone mass (osteopenia: T-score between - 1.0 and - 2.5) at the femoral neck or total hip by DXA with a 10-year hip fracture risk >= 3% or a 10-year major osteoporosis-related fracture risk >= 20% (i.e., clinical vertebral, hip, forearm, or proximal humerus) based on the [place]-adapted FRAXregistered model. Secondary fracture prevention: * Fracture of the hip or vertebra regardless of BMD [4, 5]. * Fracture of proximal humerus, pelvis, or distal forearm in persons with low bone mass (osteopenia: T-score between - 1.0 and - 2.5). The decision to treat should be individualized in persons with a fracture of the proximal humerus, pelvis, or distal forearm who do not have osteopenia or low BMD [12, 13]. Iram CHAUDHARY, Francisco Javier RENEE, Adolfo KL, Berkley EM, Sy KG, AJ, Yon ES. The clinician's guide to prevention and treatment of osteoporosis. Osteoporos Int. 2021;33(10):9751-2486. doi: 10.1007/k60662-552-85987-s. Epub 2021Jan 22. Erratum in: Osteoporos Int. 2021Apr 23;: PMID: [id number]; PMCID: [id number]. Electronically authenticated by: YOUSUF ORTIZ Date: 08/09/2024 07:30
--- OUTSIDE RECORDS SUMMARY | 2024-08-07 09:05 | XMS_ITS | CCD ---
Author Organization [facility] Care Team Providers Care Small Products I Assembler Name Role Phone DARA EMRE Mario Alberto Unavailable Unavailable DARA, EMRE Mario Alberto Unavailable Unavailable KAT NOBLE Unavailable Unavailable Emely Thomas Unavailable MARTHA, DR EMELY Becker Primary Care Unavailable MARTHA, DR EMELY Becker Admitting Unavailable MARTHA, DR EMELY Becker Attending Unavailable LEES ., DR UYLI Nguyen Attending Unavailable LEES ., DR YULI Nguyen Admitting Unavailable ELES ., DR YULI Nguyen Consulting Unavailable MARTHA, [...] MARTHA, DR EMELY Becker Primary Care Unavailable [place], DR YOUSUF Ferguson Consulting Unavailable MARTHA, DR [...] LEES ., DR YULI Nguyen Attending Unavailable [place], DR YOUSUF Ferguson Consulting Unavailable THOMAS, DR [...] DR EMELY Becker Admitting Unavailable THOMAS, DR EMLEY Becker Attending Unavailable THOMAS, DR EMELY Becker [...] ON FILE] Propensity to adverse reactions (disorder) [facility] Repository Medications Current Medications Medication Drug [...] mg oral tablet (2 sources) Glucosamine-Eugene droitin-MSM (Aiesji-Hvbve-FCX-Double Str) 500-400-167 MG tablet every 12 (twelve) hours Active 1 ml denosumab 60 mg/ml prefilled syringe (8 sources) RANK Ligand Inhibitor denosumab (Prolia) 6 0 MG/ML solution prefilled syringe as directed Subcutaneous Active Fish Oils (5 sources) take 1 capsule by mouth once daily Fish Oil 1000 MG 1 capsule Orally Once a day Active Hhjtit-Nezj-BCK-Ca-C-CtCl -SeCu - (5 sources) Gbuwtp-Mwdb-DSB- Lf-P-HoAh-SeCu - as directed Orally Active losartan potassium [...] each day at the same time Active Gardners-3 Fatty Acids (Fish Oil) 1200 MG capsule delayed-release (2 sources) take 1 capsule by mouth every twelve hours Gardners-3 Fatty Acids (Fish Oil) 1200 MG capsule [...] unspecified] Chronic Other aftercare (3 sources) 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; Translations: [OTH LONG-TERM CURRENT DRUG THERAPY] Onset: 03-12-2022 Episodic Other bone disease and musculoskeletal deformities (5 sources) Osteopenia; Translations: [Other specified disorders of bone density and structure, unspecified site] Episodic Other bone disease and musculoskeletal deformities (6 sources) Other specified disorders of bone density and structure, unspecified site; Translations: [[facility] D/O BONE DEN STRUCT UNS SITE] [...] Facility Left eye Ophthalmologic chata tmenton 07-25-2024 [facility] Radiology Study observation (narrative) [facility] Optical coherence tomography study reporton 07-25-2024 [facility] Radiology Study observation (narrative) [facility] 36on 05-17-2023 36 Spoke with patient. 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 Normal [facility] 36on 05-14-2023 36 Left message for [...] on Wednesday to follow-up regarding this. Normal [facility] Telephoneon 05-14-2023 Telephone [id number] Licha1945 F Date Provider Department Center 05/14/2023 [id number], [facility] Second Fl Family History Problem Relation Age of Onset Other Mother Stomach cancer Father Family Status - Relation Status Age at Mother Father Normal [facility] Consulton 05-13-2023 Consult [id number] Licha ice 1945 F Date Provider Department Center 05/13/2023 [id number], [facility] Second Fl Family History Problem Relation Age of Onset Other Mother Stomach cancer Father Family Status - Relation Status Age at Mother Father Level of Service:72214 [place] OFFICE/OUTPATIENT NEW MODERATE MDM 45-59 MINUTES Reason for Visit and Comments: Consult [484] - Pt is here for a CO visit for Spinal Stenosis. Normal [facility] 36on 04-16-2023 36 LVM for pt to call jose shanks to schedule with or Dr. Lopez for Lunbar Stenosis. Imaging requested from Brent. Normal [facility] MRI LSPINE WO CONon 02-11-20 23 [...] OFE COFFEY Date: 2023-02-10 07:16 Normal [facility] CALCIUMon 12-24-2022 Calcium [Mass/Vol] 9.7 mg/dL Normal 8.5-10.1 [facility] Comment on above: Performed By: #### C Dora, CREA ####[facility] [address] [place] [address]Dr. Holly Phillip CREATININEon 12-24-2022 Creatinine [Mass/Vol] 0.62 mg/dL Normal 0.55-1.02 [facility] Comment on above: Performed By: #### C Dora, CREA ####[facility] [address] [place] [address]Dr. Holly Fisher EGFR-AF MALTESE >60 Normal >=60 [facility] Comment on above: Performed By: #### C Dora, CREA ####[facility] [address] [place] [address]Dr. Holly Fisher EGFR-NON AF MALTESE >60 Normal >=60 [facility] Comment on above: Performed By: #### C Dora, CREA ####[facility] [address] [place] [address]Dr. Holly Fisher Covid-19 PCR ([facility])on SARS-CoV-2 (COVID-19) RNA FRED+probe Ql (Unsp spec) Not detected Normal NOT DETECTED [facility] Comment on above: Result Comment: This test is not yet approved or cleared by the [place] FDA. When there are no FDA-approved or cleared tests available, and other criteria are met, FDA can make tests available under an emergency access mechanism called an Emergency Use Authorization (EUA). The EUA for this test is supported by the Director Of Extension Work of Health and Human Service's (HHS's) declaration [...] with SARS-CoV-2. Performed By: #### C VDTB ####[facility] [address] [place] [address]Dr. Holly Fisher Covid-19 PCR ([facility])on 07-28 SARS-CoV-2 (COVID-19) RNA FRED+probe Ql (Unsp spec) Not detected Normal NOT DETECTED [facility] Comment on above: Result Comment: This test is not yet approved or cleared by the [place] FDA. When there are no FDA-approved or cleared tests available, and other criteria are met, FDA can make tests available under an emergency access mechanism called an Emergency Use Authorization (EUA). The EUA for this test is supported by the [place] of Health and Human Service's (HHS's) declaration [...] SARS-CoV-2. Performed By: #### C VDTB #### [facility] [address] [place], [place] [address] Dr. Holly Wayne 06-12-2022 Calcium [Mass/Vol] 9.0 mg/dL Normal 8.5-10.1 [facility] Comment on above: Performed By: #### XAVIER HOOD ####[facility] [address] [place], [place] [address]Dr. Holly Fisher CREATININEon 06-12-2022 Creatinine [Mass/Vol] 0.65 mg/dL Normal 0.55-1.02 [facility] Comment on above: Performed By: #### Jose ALMEIDA, CA #### [facility] [address] [place], [place] [address] Dr. Holly Fisher EGFR-AF MALTESE >60 Normal >=60 [facility] Comment on above: Performed By: #### C JUAN PABLO CA #### [facility] [address] [place] [address] [address] Holly Fisher EGFR-NON AF MALTESE >60 Normal >=60 [facility] Comment on above: Performed By: #### XAVIER HOOD #### [facility] [address] [place] [address] [address] Holly Fisher XR LSPINE W_OBLS AND [...] YOUSUF ORTIZ Date: 2022-05-04 08:47 Normal [facility] CBC AUTO DIFFon 03-05-2022 BASO # 0.1 103/ul Normal 0.0-0.1 [facility] Comment on above: Performed By: #### C BC ####[facility] [address] [place] [id number]. Holly Fisher Basophils/100 WBC (Bld) 1.0 % Normal 0.2-2.0 [facility] Comment on above: Performed By: #### C BC ####[facility] [address] [place], [place] [address]Dr. Holly Fisher EO # 0.2 103/ul Normal 0.0-0.7 [facility] Comment on above: Performed By: #### C BC ####[facility] [address] [place], [place] [address]Dr. Holly Fisher Eosinophils/100 WBC (Bld) 2.4 % Normal 0.9-7.0 [facility] Comment on above: Performed By: #### C BC ####[facility] [address] [place], [place] [address]Dr. Holly Fisher Erythrocyte distribution width (RBC) [Ratio] 14.4 % Normal 11.0-15.0 [facility] Comment on above: Performed By: #### C BC ####[facility] [address] [place], [place] [address]Dr. Holly Fisher Hematocrit (Bld) [Volume fraction] 41.1 % Normal 36.0-48.0 [facility] Comment on above: Performed By: #### C BC ####[facility] [address] [place], [place] [address]Dr. Holly Fisher Hemoglobin (Bld) [Mass/Vol] 13.4 g/dL Normal 12.0-16.0 [facility] Comment on above: Performed By: #### C BC ####[facility] [address] [place], [place] [address]Dr. Holly Fisher IG # 0.03 10e3/ul Normal 0.00-0.03 [facility] Comment on above: Performed By: #### C BC ####[facility] [address] [place], [place] [address]Dr. Holly Fisher IG % 0.5 % Normal 0.0-0.5 [facility] Comment on above: Performed By: #### C BC ####[facility] [address] [place] [id number]. Holly Fisher LYMPH # 1.5 103/ul Normal 1.2-3.8 [facility] Comment on above: Performed By: #### C BC ####[facility] [address] [place] [id number]. Holly Phillip Lymphocytes/100 WBC (Bld) 24.3 % Normal 20.5-60.0 [facility] Comment on above: Performed By: #### C BC ####[facility] [address] [place] [id number]. Lindaban Fisher MANUAL DIFF REQ NO Normal [facility] Comment on above: Performed By: #### C BC ####[facility] [address] [place] [id number]. Holly Phillip MCH (RBC) [Entitic mass] 30.3 pg Normal 26.7-34.0 [facility] Comment on above: Performed By: #### C BC ####[facility] [address] [place] [id number]. Holly Fisher MCHC (RBC) [Mass/Vol] 32.6 g/dL Normal 29.9-35.2 [facility] Comment on above: Performed By: #### C BC ####[facility] [address] [place] [id number]. Holly Fisher MCV (RBC) [Entitic vol] 93.0 fL Normal 81.0-99.0 [facility] Comment on above: Performed By: #### C BC ####[facility] [address] [place] [id number]. Holly Phillip MONO # 0.5 103/ul Normal 0.3-0.8 [facility] Comment on above: Performed By: #### C BC ####[facility] [address] [place] [id number]. Holly Phillip Monocytes/100 WBC (Bld) 7.3 % Normal 1.7-12.0 [facility] Comment on above: Performed By: #### C BC ####[facility] [address] [place], [place] [address]Nk. Lindaban Fisher NEUT # 4.1 103/ul Normal 1.4-6.5 [facility] Comment on above: Performed By: #### C BC ####[facility] [address] [place], [place] [address]Ya. Holly Fisher Neutrophils/100 WBC (Bld) 64.5 % Normal 43.0-75.0 [facility] Comment on above: Performed By: #### C BC ####[facility] [address] [place] [id number]. Holly Fisher Platelet mean volume (Bld) [Entitic vol] 10.5 fL Normal 9.5-13.5 [facility] Comment on above: Performed By: #### C BC ####[facility] [address] [place] [id number]. Holly Fisher PLT 253 103/ul Normal 150-450 [facility] Comment on above: Performed By: #### C BC ####[facility] [address] [place] [id number]. Holly Fisher RBC 4.42 106/ul Normal 4.20-5.40 [facility] Comment on above: Performed By: #### C BC ####[facility] [address] [place] [id number]. Holly Fisher WBC 6.3 103/ul Normal 4.0-11.0 [facility] Comment on above: Performed By: #### C BC ####[facility] [address] [place] [id number] Fisher LIPID PROFILEon 03-05-2022 CHOL-HDL RATIO NORM SEE BELOW Normal [facility] Comment on above: Result Comment: 3.3 - 4.4 LOW RISK 4.4 - 7.1 AVERAGE RISK 7.1 - 11.0 MODERATE RISK >11.0 HIGH RISK Performed By: #### L IPID, CMP #### [facility] [address] [place], [place] [address] Dr. Holly Fisher Cholesterol [Mass/Vol] 263 mg/dL Critically high <=200 [facility] Comment on above: Performed By: #### L IPID, CMP #### [facility] [address] [place] [address] [address] Hloly Fisher Cholesterol in HDL [Mass/Vol] 63 mg/dL Critically high 40-60 [facility] Comment on above: Performed By: #### L IPID, CMP #### [facility] [address] [place] [address] [address] Holly Fisher Cholesterol in LDL [Mass/Vol] 160.2 mg/dL Normal [facility] Comment on above: Performed By: #### L IPID, CMP #### [facility] [address] [place] [address] Dr. Holly Fisher Cholesterol.total/ Cholesterol in HDL [Mass ratio] 4.2 {ratio} Normal [facility] Comment on above: Performed By: #### L IPID, CMP #### [facility] [address] [place] [address] Dr. Holly Fisher HDL NORMAL > or = 60 mg/dl - LO W CARDIOVASCULAR RISK <40 mg/dl - HIGH CARDIOVASCULAR RISK Normal [facility] Comment on above: Performed By: #### L IPID, CMP #### [facility] [address] [place] [address] Dr. Holly Fisher LDL CALC NORMAL SEE BELOW Normal [facility] Comment on above: Result Comment: <100 mg/dl OPTIMAL 100 - 129 mg/dl NEAR OR ABOVE OPTIMAL 130 - 159 mg/dl BORDERLINE HIGH 160 - 189 mg/dl HIGH >190 mg/dl VERY HIGH Performed By: #### L IPID, CMP #### [facility] [address] [place] [address] Dr. Holly Fisher Triglyceride [Mass/Vol] 199 mg/dL Critically high <=150 [facility] Comment on above: Performed By: #### L IPID, CMP #### [facility] [address] [place] [address] [address] Holly Fisher VLDL CALC 39.8 mg/dL Normal [facility] Comment on above: Performed By: #### L IPID, CMP #### [facility] [address] [place] [address] [address] Holly Fisher MG MAMM SCREEN 3D SHERRIE CADon 03-05-2022 MG MAMM SCREEN 3D SHERRIE CAD Patient: LETTY COFFEY Exam Date: 03/05/2022 : 1945 Gender:F Ordering : DR EMELY THOMAS M.D. Admission #: [id number] Family : Order #: [id number] CLICK HERE TO VIEW EXAM RADIOLOGY REPORT [...] No Treatments None Family Cancers None LOCATION: [facility] BREAST COMPOSITION: Scattered areas fibroglandular density. FINDINGS: [...] Ortiz MD on 03/05/2022 at 09:55 Normal [facility] PROF 14(COMP METB)on 022 Albumin [Mass/Vol] 3.9 g/dL Normal 3.4-5.0 [facility] Comment on above: Performed By: #### L IPID, CMP #### [facility] [address] [place] [address] [address] Holly Fisher Albumin/Globulin [Mass ratio] 1.1 {ratio} Normal [facility] Comment on above: Performed By: #### L IPID, CMP #### [facility] [address] [place] [address] [address] Holly Fisher ALP [Catalytic activity/Vol] 54 U/L Normal 46-116 [facility] Comment on above: Performed By: #### L IPID, CMP #### [facility] [address] [place] [address] [address] Holly Fisher ALT [Catalytic activity/Vol] 22 U/L Normal 14-59 [facility] Comment on above: Performed By: #### L IPID, CMP #### [facility] [address] [place] [address] [address] Holly Fisher Anion gap [Moles/Vol] 12.5 mmol/L Normal [facility] Comment on above: Performed By: #### L IPID, CMP #### [facility] [address] [place] [address] [address] Holly Fisher AST [Catalytic activity/Vol] 14 U/L Critically low 15-37 [facility] Comment on above: Performed By: #### L IPID, CMP #### [facility] [address] [place] [address] Dr. Holly Fisher Bilirubin [Mass/Vol] 0.4 mg/dL Normal 0.2-1.0 [facility] Comment on above: Performed By: #### L IPID, CMP #### [facility] [address] [place] [address] Dr. Holly Fisher Calcium [Mass/Vol] 8.6 mg/dL Normal 8.5-10.1 [facility] Comment on above: Performed By: #### L IPID, CMP #### [facility] [address] [place] [address] Dr. Holly Fisher Chloride [Moles/Vol] 106 mmol/L Normal 98-107 [facility] Comment on above: Performed By: #### L IPID, CMP #### [facility] [address] [place] [address] [address] Holly Fisher CO2 [Moles/Vol] 26.8 mmol/L Normal 21.0-32.0 [facility] Comment on above: Performed By: #### L IPID, CMP #### [facility] [address] [place] [address] [address] Holly Fisher Creatinine [Mass/Vol] 0.60 mg/dL Normal 0.55-1.02 [facility] Comment on above: Performed By: #### L IPID, CMP #### [facility] [address] [place] [address] Dr. Holly Fisher EGFR-AF MALTESE >60 Normal >=60 [facility] Comment on above: Performed By: #### L IPID, CMP #### [facility] [address] [place] [address] Dr. Holly Fisher EGFR-NON AF MALTESE >60 Normal >=60 [facility] Comment on above: Performed By: #### L IPID, CMP #### [facility] [address] [place] [address] Dr. Holly Fisher Globulin (S) [Mass/Vol] 3.4 g/dL Normal [facility] Comment on above: Performed By: #### L IPID, CMP #### [facility] [address] [place] [address] Dr. Holly Fisher Glucose [Mass/Vol] 98 mg/dL Normal 74-106 [facility] Comment on above: Performed By: #### L IPID, CMP #### [facility] [address] [place] [address] Dr. Holly Fisher Potassium [Moles/Vol] 4.3 mmol/L Normal 3.5-5.1 [facility] Comment on above: Performed By: #### L IPID, CMP #### [facility] [address] [place] [address] Dr. Holly Fisher Protein [Mass/Vol] 7.3 g/dL Normal 6.4-8.2 [facility] Comment on above: Performed By: #### L IPID, CMP #### [facility] [address] [place] [address] Dr. Holly Fisher Sodium [Moles/Vol] 141 mmol/L Normal 136-145 [facility] Comment on above: Performed By: #### L IPID, CMP #### [facility] [address] [place] [address] Dr. Holly Fisher Urea nitrogen [Mass/Vol] 14.0 mg/dL Normal 7.0-18.0 [facility] Comment on above: Performed By: #### L IPID, CMP #### [facility] [address] [place] [address] [address] Holly Fisher Urea nitrogen/Creatinin e [Mass ratio] 23.3 mg/mg Normal [facility] Comment on above: Performed By: #### L IPID, CMP #### [facility] [address] [place] [id number] Holly Fisher XR DEXA BONE DENSITYon [...] by: YOUSUF ORTIZ Date: 2022-03-05 10:00 Normal [facility] History and Physicalon 04-27 HIM IP Note OR [employer] Turner Normal [facility] OPERATIVE REPORT[facility] COFFEY : [birth year][facility] REC NO: [id number] ROOM:ACCOUNT NO: [id number] ADMISSION DATE: 04/27/17PHYSICIAN: EMRE STAPLETONDATE OF PROCEDURE: [...] used to engage the membrane in a opnij-yuv-obhd technique andthe membrane was elevated from the [...] theprocedure well without complications.EMRE DANIELBSD:04/27/2017 9:59:31 CD/[id number]_TJob#: [id number] Doc#: [id number] [facility] Vital Signs Date Time Vital Sign Value Performing Clinician Facility 06-30-2023 09:15-0400 Body height 158.75 cm Emely Thomas Other [place] Other 06-30-2023 09:15-0400 Body mass index (BMI) [Ratio] 30.95 kg/m2 Emely Thomas Other [place] Other 06-30-2023 09:15-0400 Body temperature 96.5 [degF] Emely Thomas Other [place] Other 06-30-2023 09:15-0400 Body weight 78.02 kg Emely Thomas Other [place] Other 06-30-2023 09:15-0400 Diastolic blood pressure 76 mm[Hg] Emely Thomas Other [place] Other 06-30-2023 09:15-0400 Systolic blood pressure 156 mm[Hg] Emely Thomas Other [place] Other 04-13-2023 15:00-0400 Body height 158.75 cm Emely Thomas Other [place] Other 04-13-2023 15:00-0400 Body mass index (BMI) [Ratio] 31.49 kg/m2 Emely Thomas Other [place] Other 04-13-2023 15:00-0400 Body weight 79.38 kg Emely Thomas Other [place] Other 04-13-2023 15:00-0400 Diastolic blood pressure 78 mm[Hg] Emely Thomas Other [place] Other 04-13-2023 15:00-0400 Systolic blood pressure 135 mm[Hg] Emely Thomas Other [place] Other 03-18-2023 08:40-0400 Body height 158.75 cm Ej Thomas Other [place] Other 03-18-2023 08:40-0400 Body mass index (BMI) [Ratio] 31.67 kg/m2 Ej Thomas Other [place] Other 03-18-2023 08:40-0400 Body weight 79.83 kg Ej Thomas Other [place] Other 03-18-2023 08:40-0400 Diastolic blood pressure 84 mm[Hg] Ej Thomas Other [place] Other 03-18-2023 08:40-0400 Systolic blood pressure 134 mm[Hg] Ej Thomas Other [place] Other 01-21-2023 11:00-0400 Body height 158.75 cm Emely Thomas Other [place] Other 01-21-2023 11:00-0400 Body mass index (BMI) [Ratio] 32.21 kg/m2 Emely Thomas Other [place] Other 01-21-2023 11:00-0400 Body weight 81.19 kg Emely Thomas Other [place] Other 01-21-2023 11:00-0400 Diastolic blood pressure 82 mm[Hg] Emely Thomas Other [place] Other 01-21-2023 11:00-0400 SaO2% (BldA) [Mass fraction] 97 % Emely Thomas Other [place] Other 01-21-2023 11:00-0400 Systolic blood pressure 142 mm[Hg] Emely Thomas Other [place] Other Encounters Encounter Date Encounter Type Care [...] 06-30-2023 End: 06-30-2023 ambulatory Emely Thomas Other [place] Other Start: 06-30-2023 Office outpatient vi sit 15 minutes Emely Thomas [facility] Start: 05-18-2023 End: 05-18-2023 ambulatory Emely Thomas Other [place] Other Start: 05-18-2023 Telephone encounter Emely Thomas [facility] Start: 05-13-2023 End: 05-14-2023 ambulatory [facility] Start: 05-13-2023 End: 05-13-2023 ambulatory [facility] Start: 04-16-2023 End: 04-17-2023 ambulatory [facility] Start: 04-13-2023 End: 04-13-2023 ambulatory Emely Thomas Other [place] Other Start: 04-13-2023 Office outpatient vi sit 15 minutes Emely Thomas [facility] Start: 04-05-2023 End: 04-05-2023 ambulatory Ej Thomas Other [place] Other Start: 04-05-2023 Telephone encounter Ej Thomas [facility] Start: 03-18-2023 End: 03-18-2023 ambulatory Ej Thomas Other [place] Other Start: 03-18-2023 Office outpatient ne w 30 minutes Ej Thomas [facility] Start: 02-09-2023 End: 02-10-2023 ambulatory NARENDRANATH LAKSHMIPATHY . Facility:[facility] Start: 02-01-2023 ambulatory NARENDRANATH LAKSHMIPATHY . Facility:[facility] Start: 01-28-[address] EMELY THOMAS Facil ity:[facility] Start: 01-28-2023 End: 01-29-2023 ambulatory NARENDRANATH LAKSHMIPATHY . Facility:[facility] Start: 01-21-2023 End: 01-21-2023 ambulatory Emely Thomas Other [place] Other Start: 01-21-2023 Office outpatient vi sit 15 minutes Emely Thomas [facility] Start: 01-12-2023 End: 01-12-2023 ambulatory AURAMUNAVINAY BUCKLEYMIPATHY . Facility:[facility] Start: 12-31-2022 End: 01-01-[address] EMELY THOMAS Facility:[facility] Start: 12-28-2022 End: 12-28-[address] EMELY THOMAS Facility:[facility] Start: 12-24-2022 End: 12-25-[address] EMELY THOMAS Facility:[facility] Start: 10-07-2022 End: 10-08-2022 ambulatory SHAWNA RUIZ . Facility:[facility] Start: 09-03-2022 Encounter for preprocedural laboratory examination DR YULI LEES . [facility] Start: 09-01-2022 End: 09-01-[address] YULI LEES . Facility:[facility] Start: 08-28-2022 End: 08-29-[address] EMELY THOMAS Facility:[facility] Start: 08-28-2022 End: 08-29-2022 Encounter for preprocedural laboratory examination DR EMELY THOMAS Facility:[facility] Start: 08-11-2022 End: 08-11-[address] YULI LEES . Facility:[facility] Start: 08-08-2022 Encounter for preprocedural cardiovascular examination SHAWNA RUIZ . [facility] Start: 08-07-2022 End: 08-08-[address] [...] Start: 04-27-2017 End: 04-27-2017 Ambulatory EMRE STAPLETON [facility] Procedures Date Procedure Procedure Detail Performing [...] [address] [place] En[place] [address] [place] [address] Kriss Velez DO [address] [place] [address] [facility] Start: 07-25-2024 End: 07-25-2024 Clinical Support 07/25/2024 1:45 PM EDT Clinical Support [facility] [address] [place] [id number] Dusty Nassar DO [address] [place] [address] Arrived [facility] Comment on above: Arrived Start: 05-28-2024 Influenza vaccination Influenza Vacc ine (#1) [facility] Start: 02-26-2023 ambulatory Ambulatory Facility:H 1 Intravitreal Injection, Pharmacologic Agent - OD - Right Eye Intravitreal Injection, Pharmacologic Agent - OD - Right Eye Ophthalmology Routine 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 eye with active choroidal neovascularization (HCC) (CMS/HCC) Ordered: 07/25/2024 [facility] Work Phone: Comment on above: Ordered: 07/25/2024 Immunizations Immunization Date Immunization Notes Care Provider Fa cility 07-26-2023 influenza virus vacc ine, unspecified formulation Dusty Nassar DO Work Phone: [facility] Payers Date Payer Category Payer [facility] [id number] 2017 Medicare MEDICARE [id number] 2014 Unknown [id number] 1959 [employer] [place] [facility] [id number] 2.16.840.1.671529.19 1959 Medicare [id number] 2.16.840.1.093186. 1959 Unknown [id number] 1947 Unknown [id number] 2.16.840.1.246577.3.579.2. 593 1947 Unknown [id number] 2.16.840.1.479671.3.579.2. 593 1947 Unknown [id number] 2.16.840.1.813335.3.579.2. 593 1947 Unknown [id number] 2.16.840.1.473670.3.579.2. 593 1947 Unknown [id number] 2.16.840.1.079728.3.579.2. 593 1947 Unknown [id number] 2.16.840.1.685648.3.579.2. 593 1947 Unknown [id number] 2.16.840.1.497436.3.579.2. 593 1947 Unknown [id number] 2.16.840.1.802533.3.579.2. 593 1947 Unknown [id number] 2.16.840.1.987790.3.579.2. 593 1947 Unknown [id number] 2.16.840.1.943813.3.579.2. 593 1947 Unknown [id number] 2.16.840.1.848981.3.579.2. 593 1947 Unknown [id number] 2.16.840.1.972357.3.579.2. 593 1947 Unknown [id number] 2.16.840.1.803644.3.579.2. 593 1947 Unknown [id number] 2.16.840.1.105290.3.579.2. 593 1947 Unknown [id number] 2.16.840.1.646364.3.579.2. 593 1947 Unknown [id number] 2.16.840.1.776839.3.579.2. 593 1947 Unknown [id number] 2.16.840.1.935331.3.579.2. 593 1947 Unknown [id number] 2.16.840.1.587653.3.579.2. 593 1947 Unknown [id number] 2.16.840.1.817446.3.579.2. 593 1947 Unknown [id number] 2.16.840.1.243403.3.579.2. 593 1947 Unknown [id number] 2.16.840.1.588944.3.579.2. 593 1947 Unknown [id number] 2.16.840.1.820866.3.579.2. 593 1947 Unknown [id number] 2.16.840.1.938610.3.579.2. 593 1947 Unknown [id number] 2.16.840.1.470191.3.579.2. 593 1947 Unknown [id number] 2.16.840.1.377246.3.579.2. 593 1947 Unknown [id number] 2.16.840.1.264872.3.579.2. 1259 1947 Unknown [id number] 2.16.840.1.539061.3.579.2. 1259 1947 Unknown [id number] 2.16.840.1.110138.3.579.2. 1259 1947 Unknown [id number] 2.16.840.1.653166.3.579.2. 1259 1947 Unknown [id number] 2.16.840.1.251502.3.579.2. 1259 1947 Unknown [id number] 2.16.840.1.461426.3.579.2. 1259 1947 Unknown [id number] 2.16.840.1.826730.3.579.2. 1259 1947 Unknown [id number] 2.16.840.1.769995.3.579.2. 1259 1947 Unknown [id number] 2.16.840.1.609192.3.579.2. 1259 1947 Unknown [id number] 2.16.840.1.773396.3.579.2. 1259 Social History Date Type Detail Facility Unknown if ever smoked [facility] Other Start: 05-30-20[address] [facility] Other Start: 10-11-2023 Tobacco smoking status RIIS Never smoked tobacco [facility] Start: 10-11-2023 [...] 2 MG/0.05ML Route: Intravitreal, Site: Left Eye [facility]: 50158-588-88, Lot: [id number], Expiration date: 08/27/2025, Waste: 0 mL Post-op [...] increased pain, redness, decreased vision or concerns. [facility] 07-25-2024 Note Right Eye Quality was good. Scan locations included subfoveal. Progression has been stable. Findings include abnormal foveal contour, pigment epithelial detachment. Left Eye Quality was good. Scan locations included subfoveal. Progression has been stable. Findings include abnormal foveal contour. [facility] 10-29-2024 History of Presen t illness Narrative [...] 2 MG/0.05ML Route: Intravitreal, Site: Left Eye [facility]: 15020-945-43, Lot: [id number], Expiration date: 08/27/2025, Waste: 0 mL Post-op [...] vision or concerns. documented in this encounter [facility] 06-30-2023 Evaluation note Encounter Date Diagnosis Assessment Notes Jun, Acute non-recurrent maxillary sinusitis (ICD-10 - J01.00) Finish antibiotic, stay hydrated. Ok for NSAIDs for head pressure. Call if no improvement. [facility] 08-17-2023 NoteSUBJECTIVE: Chief complaint: Back and right leg pain. History of present illness: Consultation referred by pain management, Dr. Layton of [facility]. Patient reports chronic low back pain [...] found for any pre (more content not included)...[facility]08-17-2023 NoteSubjective: HPI: Letty Coffey is a [...] and assess x-rays of back. Malina Mckeon MS3[facility]07-18-2023 Evaluation note* Encounter Date Diagnosis Assessment [...] is busy with other appts right now. [facility] 06-22-2023 Evaluation note* Encounter Date Diagnosis [...] long as possible before considering surgical intervention. [facility] 05-04-2023 NoteCONSULTATION CONSULTATION DATE: 01/28/2023 TO: [...] our patients to inform us about any bjad-cal-cpcpfky medications or herbal remedies/nutritional supplements/alternative remedies. 2. [...] treatment options with their primary care provider.[facility] [id number] Evaluation note * Encounter Date Diagnosis Assessment Notes Treatment Notes Treatment Clinical Notes Dec, Essential (primary) hypertension (ICD-10 - I10) new problem. rx handwritten. f/u 6 weeks. Dec, Other chronic pain (ICD-10 - G89.29) Dec, Pain in left shoulder (ICD-10 - M25.512) PT order given to pt. [facility] Other 04-06-2023 NoteCONSULTATION CONSULTATION DATE: 12/31/2022 TO: [...] our patients to inform us about any jeqf-idr-tewnohw medications or herbal remedies/nutritional supplements/alternative remedies. 2. [...] treatment options with their primary care provider.[facility] [id number] Note CONSULTATION PROCEDURE DATE: 10/07/2022 PREOPERATIVE DIAGNOSIS: [...] fan-like pattern. Patient tolerated the procedure well.[facility] [id number] NoteCONSULTATION CONSULTATION DATE: 10/07/2022 HISTORY OF PRESENT [...] sitting does decrease her pain. Medications include lzut-ioz-wtejuzg Tylenol and the use of Salonpas patches. [...] otherwise indicated. Patient agrees with this plan.[facility] [id number] NoteCONSULTATION CONSULTATION DATE: 07/30/2022 This is a [...] be followed up at the office thereafter.[facility] [id number] NoteCONSULTATION CONSULTATION DATE: 06/25/2022 HISTORY OF PRESENT [...] patient is in agreement with this plan.[facility] [id number] NoteCONSULTATION CONSULTATION DATE: 05/19/2022 CHIEF COMPLAINT: Right [...] like to proceed. CC: Emely Thomas M.D.[facility] [id number] NoteCONSULTATION PROCEDURE DATE: 04/28/2022 PREOPERATIVE DIAGNOSIS: Right [...] Will be followed up in the office.[facility] [id number] NoteCONSULTATION CONSULTATION DATE: 04/28/2022 CHIEF COMPLAINT: Right [...] like to proceed. CC: Emely Thomas M.D.[facility] [id number] NotePROCEDURE: XR HIP RT 2 3V W PELVIS COMPARISON: None. HISTORY: Arthropathy FINDINGS: BONES:No acute fracture or dislocation. Mild osteoarthropathy with marginal osteophyte formation. 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 No visible soft tissue swelling. EFFUSION:None visible. OTHER: Negative. 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 Electronically authenticated by: YOUSUF ORTIZ Date: 2022-03-05 10:09[facility] HospitalEvaluation noteNo InformationNorth [place] Other evaluation note* Diagnosis Exudative age-related macular [...] History COLONOSCOPY Hospitalization History SEE SURGICAL HX [place] Other History general Narrative - Reported* Type [...] growth surgery Hospitalization History SEE SURGICAL HX [place] Other Summary Purpose Family History No Family History Records FoundNo Family History Records FoundNo Family History Records FoundNo Family History Records Found Advance Directives No Advanced Directives Records FoundNo Advanced Directives Records FoundNo Advanced Directives Records FoundNo Advanced Directives Records Found Additional Source Comments INFORMATION SOURCE (unrecogn ized section and content) DATE CREATED AUTHOR 03/23/2018 [facility] DATE CREATED AUTHOR AUTHOR'S ORGANIZ ATION 02/10/2023 [facility] DATE CREATED AUTHOR AUTHOR'S ORGANIZ ATION 05/19/2023 [facility] DATE CREATED AUTHOR AUTHOR'S ORGANIZ ATION 07/27/2024 [facility] EPIC REASON FOR VISIT (unrecogniz ed section and content) Reason Comments Macular Degeneration Retinal Injection Care Teams (unrecognized sec tion and content) [employer] Relationship Specialty Start Date End Date Wiley Price MD [address] [place] [address] PCP - General Family Medicine 12/10/23 [place] [address] [place] [address] Referring Physician Family Medicine 10/15/23 [employer] Relationship Specialty Start Date End Date Wiley Price MD [address] [place] [address] PCP - General Family Medicine 12/10/23 Kimber Price MD [address] [place] [address] Referring Physician Family Medicine 10/15/23 FOR RECORDS [...] BE BASED ON THE PRIMARY CLINICAL RECORDS. [employer] [facility]. provides no warranty or guarantee of the accuracy or completeness of information in this document.
[2024-08-07 09:53] LABS: Calcium 9.3 mg/dL (8.5-10.1); Estimated GFR (African America >60 (>=60 mL/min/1.73m^2); Estimated GFR (Non-African Ame >60 (>=60 mL/min/1.73m^2)
== END 2024-08-07 08:45 | disposition home or self-care (01) ==
LOC: RAD 08:44
PROVIDERS: PCP Nurse Practitioner Family; Visit Provider Nurse Practitioner Family
DX: M81.0 Age-related osteoporosis without current pathological fracture (principal)
CPT/HCPCS: 36415; 77080; 82310; 82565

== ENCOUNTER 2024-08-09 07:35 | Outpatient (RCR) | payer MEDICARE, BC, SELFPAY ==
[2024-08-09 08:56] VITALS: BP 151/75; PULSE 56; TEMP 36.5; O2SAT 98
[2024-08-09] MEDS: DENOSUMAB 60 MG/ML SYRINGE SUBQ (09:27)
--- NOTE | 2024-08-09 10:45 | PC.NURSE ---
0925 prolia administered left posterior aspect of left arm, tolerated well.
== END 2024-08-17 09:07 | disposition home or self-care (01) ==
LOC: INF 07:35
PROVIDERS: PCP Nurse Practitioner Family; Visit Provider Nurse Practitioner Family
DX: M81.0 Age-related osteoporosis without current pathological fracture (principal)
CPT/HCPCS: 96372; J0897

== ENCOUNTER 2024-08-11 09:24 | Outpatient (OUT) | payer MEDICARE, BC, SELFPAY ==
--- NOTE | 2024-08-11 09:26 | MM_ITS ---
Patient Name: GAYATHRI LOPEZ MR#: [id number] : 1945 Exam Date: 08/11/2024 Ordering Doctor: DR. BREANNE HENDERSON D.O. RADIOLOGY REPORT PROCEDURE: MM TOMOSYNTHESIS SCREENING BI COMPARISON: MM TOMOSYNTHESIS SCREENING BI, 07/19/2023. MG MAMM SCREEN 3D SHERRIE CAD, 03/05/2022. MG MAMM SCREEN SHERRIE W CAD, 10/24/2020. MG MAMM SHERRIE SCRN W CAD DIG, 06/12/2013. INDICATIONS: Screening Calculator Name NCI Breast Cancer Risk Assessment Tool 5 Year Breast Cancer Risk 1.60% Lifetime Breast Cancer Risk 3.00% Personal Breast Cancer No Personal Ovarian Cancer No Treatments None Family Cancers None LOCATION: [facility] BREAST COMPOSITION: There are scattered areas of fibroglandular density. FINDINGS: DIAGNOSTIC CATEGORY 1--NEGATIVE. RIGHT BREAST: No significant suspicious finding. No significant change has occurred. LEFT BREAST: No significant suspicious finding. No significant change has occurred. RECOMMENDATIONS: ROUTINE MAMMOGRAM AND CLINICAL EVALUATION IN 12 MONTHS. PLEASE NOTE: A NORMAL MAMMOGRAM DOES NOT EXCLUDE THE POSSIBILITY OF BREAST CANCER. A CLINICALLY SUSPICIOUS PALPABLE LUMP SHOULD BE BIOPSIED. Dictated by: Matthew Lopez M.D. on 08/11/2024 at 11:13 Approved by: Matthew Lopez M.D. on 08/11/2024 at 11:16
--- OUTSIDE RECORDS SUMMARY | 2024-08-11 09:29 | XMS_ITS | CCD ---
Author Organization [facility] Care Team Providers Care Manager Legal Name Role Phone DARA EMRE Mario Alberto [...] MARTHA, DR EMELY Becker Primary Care Unavailable AKELEY, DR YOUSUF Ferguson Consulting Unavailable MARTHA, DR [...] LEES ., DR YULI Nguyen Attending Unavailable AKELEY, DR YOUSUF Ferguson Consulting Unavailable THOMAS, DR [...] EMELY Becker Primary Care Unavailable RUIZ ., SHANWA Consulting Unavailable LEES ., DR YULI Nguyen Admitting Unavailable LEES ., DR YULI Nguyen Attending Unavailable MARTHA, DR EMELY Becker Primary Care Unavailable MARTHA, DR EMELY Becker Admitting Unavailable THOMAS, DR EMELY Becker Attending Unavailable THOMAS, DR EMEYL Becker Consulting Unavailable THOMAS, DR EMELY Becker Primary Care Unavailable LAKSHMIPATHY ., NARENDRANATH Consulting Johanny vailable LAKSHMIPATHY ., NARENDRANATH Admitting Johanyn vailable LAKSHMIPATHY ., NARENDRANATH Attending Johanny vailable [...] Unavailable Wiley Price MD Primary Care Provider [phone] DUSTY NASSAR Attending Unavailable DUSTY NASSAR Attending [...] ON FILE] Propensity to adverse reactions (disorder) [facility] Repository Medications Current Medications Medication Drug Class(es) [...] mg oral tablet (2 sources) Glucosamine-Eugene droitin-MSM (Sgtfmg-Llnxz-UVR-Double Str) 500-400-167 MG tablet every 12 (twelve) hours Active 1 ml denosumab 60 mg/ml prefilled syringe (8 sources) RANK Ligand Inhibitor denosumab (Prolia) 6 0 MG/ML solution prefilled syringe as directed Subcutaneous Active Fish Oils (5 sources) take 1 capsule by mouth once daily Fish Oil 1000 MG 1 capsule Orally Once a day Active Crnqht-Wotp-BXN-Ca-C-CtCl -SeCu - (5 sources) Hdvvpg-Ezho-FZG- Ai-P-SfZv-SeCu - as directed Orally Active losartan potassium [...] each day at the same time Active Perry-3 Fatty Acids (Fish Oil) 1200 MG capsule delayed-release (2 sources) take 1 capsule by mouth every twelve hours Perry-3 Fatty Acids (Fish Oil) 1200 MG capsule [...] unspecified] Chronic Other aftercare (3 sources) Other continuous 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 therapy; Translations: [OTH CORRECTION CURRENT DRUG THERAPY] Onset: 03-12-2022 Episodic Other bone disease and musculoskeletal deformities (5 sources) Osteopenia; Translations: [Other specified disorders of bone density and structure, unspecified site] Episodic Other bone disease and musculoskeletal deformities (6 sources) Other specified disorders of bone density and structure, unspecified site; Translations: [[facility] D/O BONE DEN STRUCT UNS SITE] Onset: [...] Facility Left eye Ophthalmologic chata tmenton 07-25-2024 [facility] Radiology Study observation (narrative) [facility] Optical coherence tomography study reporton 07-25-2024 [facility] Radiology Study observation (narrative) [facility] 36on 05-17-2023 36 Spoke with patient. 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 Normal [facility] 36on 05-14-2023 36 Left message for an [...] on Wednesday to follow-up regarding this. Normal [facility] Telephoneon 05-14-2023 Telephone [phone] Licha1945 F Date Provider Department Center 05/14/2023 [id number], [facility] Second Fl Family History Problem Relation Age of Onset Other Mother Stomach cancer Father Family Status - Relation Status Age at Mother Father Normal [facility] Consulton 05-13-2023 Consult [id number] Licha ice 1945 F Date Provider Department Center 05/13/2023 [id number], [facility] Second Fl Family History Problem Relation Age of Onset Other Mother Stomach cancer Father Family Status - Relation Status Age at Mother Father Level of Service:45634 CT OFFICE/OUTPATIENT NEW MODERATE MDM 45-59 MINUTES Reason for Visit and Comments: Consult [484] - Pt is here for a CO visit for Spinal Stenosis. Normal [facility] 36on 04-16-2023 36 LVM for pt to call jose shanks to schedule with or Dr. Lopez for Lunbar Stenosis. Imaging requested from Brent. Normal [facility] MRI LSPINE WO CONon 02-11-20 23 MRI [...] OFE COFFEY Date: 2023-02-10 07:16 Normal [facility] CALCIUMon 12-24-2022 Calcium [Mass/Vol] 9.7 mg/dL Normal 8.5-10.1 [facility] Comment on above: Performed By: #### C Dora, CREA ####[facility] [address] [place] [address]Dr. Holly Phillip CREATININEon 12-24-2022 Creatinine [Mass/Vol] 0.62 mg/dL Normal 0.55-1.02 [facility] Comment on above: Performed By: #### C Dora, CREA ####[facility] [address] [place] [address]Dr. Holly Fisher EGFR-AF SAMMARINESE >60 Normal >=60 [facility] Comment on above: Performed By: #### C Dora, CREA ####[facility] [address] [place] [address]Dr. Holly Fisher EGFR-NON AF SAMMARINESE >60 Normal >=60 [facility] Comment on above: Performed By: #### C Dora, CREA ####[facility] [address] [place] [address]Dr. Holly Fisher Covid-19 PCR ([facility])on SARS-CoV-2 (COVID-19) RNA FRED+probe Ql (Unsp spec) Not detected Normal NOT DETECTED [facility] Comment on above: Result Comment: This test is not yet approved or cleared by the [place] FDA. When there are no FDA-approved or cleared tests available, and other criteria are met, FDA can make tests available under an emergency access mechanism called an Emergency Use Authorization (EUA). The EUA for this test is supported by the [place] of Health and Human Service's (HHS's) declaration [...] with SARS-CoV-2. Performed By: #### C VDTB ####[facility] [address] [place] [address]Dr. Holly Fishre Covid-19 PCR ([facility])on 07-28 SARS-CoV-2 (COVID-19) RNA FRED+probe Ql (Unsp spec) Not detected Normal NOT DETECTED [facility] Comment on above: Result Comment: This test is not yet approved or cleared by the [place] FDA. When there are no FDA-approved or cleared tests available, and other criteria are met, FDA can make tests available under an emergency access mechanism called an Emergency Use Authorization (EUA). The EUA for this test is supported by the [place] of Health and Human Service's (HHS's) declaration [...] SARS-CoV-2. Performed By: #### C VDTB #### [facility] [address] [place], [place] [address] Dr. Holly Wayne 06-12-2022 Calcium [Mass/Vol] 9.0 mg/dL Normal 8.5-10.1 [facility] Comment on above: Performed By: #### XAVIER HOOD ####[facility] [address] [place], [place] [address]VvDr. Holly Fisher CREATININEon 06-12-2022 Creatinine [Mass/Vol] 0.65 mg/dL Normal 0.55-1.02 [facility] Comment on above: Performed By: #### Jose ALMEIDA, [place] #### [facility] [address] [place], [place] [address] Dr. Holly Fisher EGFR-AF SAMMARINESE >60 Normal >=60 [facility] Comment on above: Performed By: #### C JUAN PABLO CA #### [facility] [address] [place] [address] [address] Holly Fisher EGFR-NON AF SAMMARINESE >60 Normal >=60 [facility] Comment on above: Performed By: #### XAVIER HOOD #### [facility] [address] [place] [address] [address] Holly Fisher XR LSPINE W_OBLS AND [...] YOUSUF ORTIZ Date: 2022-05-04 08:47 Normal [facility] CBC AUTO DIFFon 03-05-2022 BASO # 0.1 103/ul Normal 0.0-0.1 [facility] Comment on above: Performed By: #### C BC ####[facility] [address] [place] [id number]. Holly Fisher Basophils/100 WBC (Bld) 1.0 % Normal 0.2-2.0 [facility] Comment on above: Performed By: #### C BC ####[facility] [address] [place], [place] [address]Dr. Holly Fisher EO # 0.2 103/ul Normal 0.0-0.7 [facility] Comment on above: Performed By: #### C BC ####[facility] [address] [place], [place] [address]Dr. Holly Fisher Eosinophils/100 WBC (Bld) 2.4 % Normal 0.9-7.0 [facility] Comment on above: Performed By: #### C BC ####[facility] [address] [place], [place] [address]Dr. Holly Fisher Erythrocyte distribution width (RBC) [Ratio] 14.4 % Normal 11.0-15.0 [facility] Comment on above: Performed By: #### C BC ####[facility] [address] [place], [place] [address]Dr. Holly Fisher Hematocrit (Bld) [Volume fraction] 41.1 % Normal 36.0-48.0 [facility] Comment on above: Performed By: #### C BC ####[facility] [address] [place], [place] [address]Dr. Holly Fisher Hemoglobin (Bld) [Mass/Vol] 13.4 g/dL Normal 12.0-16.0 [facility] Comment on above: Performed By: #### C BC ####[facility] [address] [place], [place] [address]Dr. Holly Fisher IG # 0.03 10e3/ul Normal 0.00-0.03 [facility] Comment on above: Performed By: #### C BC ####[facility] [address] [place], [place] [address]Dr. Holly Fisher IG % 0.5 % Normal 0.0-0.5 [facility] Comment on above: Performed By: #### C BC ####[facility] [address] [place] [address]Dr. Holly Fisher LYMPH # 1.5 103/ul Normal 1.2-3.8 [facility] Comment on above: Performed By: #### C BC ####[facility] [address] [place] [address]Dr. Holly Phillip Lymphocytes/100 WBC (Bld) 24.3 % Normal 20.5-60.0 [facility] Comment on above: Performed By: #### C BC ####[facility] [address] [place] [address]Dr. Lindaban Fisher MANUAL DIFF REQ NO Normal [facility] Comment on above: Performed By: #### C BC ####[facility] [address] [place] [address]Dr. Holly Phillip MCH (RBC) [Entitic mass] 30.3 pg Normal 26.7-34.0 [facility] Comment on above: Performed By: #### C BC ####[facility] [address] [place] [address]Dr. Holly Fisher MCHC (RBC) [Mass/Vol] 32.6 g/dL Normal 29.9-35.2 [facility] Comment on above: Performed By: #### C BC ####[facility] [address] [place] [address]Dr. Holly Fisher MCV (RBC) [Entitic vol] 93.0 fL Normal 81.0-99.0 [facility] Comment on above: Performed By: #### C BC ####[facility] [address] [place] [address]Dr. Holly Phillip MONO # 0.5 103/ul Normal 0.3-0.8 [facility] Comment on above: Performed By: #### C BC ####[facility] [address] [place] [address]Dr. Holly Phillip Monocytes/100 WBC (Bld) 7.3 % Normal 1.7-12.0 [facility] Comment on above: Performed By: #### C BC ####[facility] [address] [place], [place] [address]Hu. Lindaban Fisher NEUT # 4.1 103/ul Normal 1.4-6.5 [facility] Comment on above: Performed By: #### C BC ####[facility] [address] [place], [place] [address]Rw. Holly Fisher Neutrophils/100 WBC (Bld) 64.5 % Normal 43.0-75.0 [facility] Comment on above: Performed By: #### C BC ####[facility] [address] [place] [address]Dr. Holly Fisher Platelet mean volume (Bld) [Entitic vol] 10.5 fL Normal 9.5-13.5 [facility] Comment on above: Performed By: #### C BC ####[facility] [address] [place] [address]Dr. Holly Fisher PLT 253 103/ul Normal 150-450 [facility] Comment on above: Performed By: #### C BC ####[facility] [address] [place] [address]Dr. Holly Fisher RBC 4.42 106/ul Normal 4.20-5.40 [facility] Comment on above: Performed By: #### C BC ####[facility] [address] [place] [address]Dr. Holly Fisher WBC 6.3 103/ul Normal 4.0-11.0 [facility] Comment on above: Performed By: #### C BC ####[facility] [address] [place] [address]DrHafsa Fisher LIPID PROFILEon 03-05-2022 CHOL-HDL RATIO NORM SEE BELOW Normal [facility] Comment on above: Result Comment: 3.3 - 4.4 LOW RISK 4.4 - 7.1 AVERAGE RISK 7.1 - 11.0 MODERATE RISK >11.0 HIGH RISK Performed By: #### L IPID, CMP #### [facility] [address] [place], [place] [address] Dr. Holly Fisher Cholesterol [Mass/Vol] 263 mg/dL Critically high <=200 [facility] Comment on above: Performed By: #### L IPID, CMP #### [facility] [address] [place] [address] [address] Holly Fisher Cholesterol in HDL [Mass/Vol] 63 mg/dL Critically high 40-60 [facility] Comment on above: Performed By: #### L IPID, CMP #### [facility] [address] [place] [address] [address] Holly Fisher Cholesterol in LDL [Mass/Vol] 160.2 mg/dL Normal [facility] Comment on above: Performed By: #### L IPID, CMP #### [facility] [address] [place] [address] Dr. Holly Fisher Cholesterol.total/ Cholesterol in HDL [Mass ratio] 4.2 {ratio} Normal [facility] Comment on above: Performed By: #### L IPID, CMP #### [facility] [address] [place] [address] Dr. Holly Fisher HDL NORMAL > or = 60 mg/dl - LO W CARDIOVASCULAR RISK <40 mg/dl - HIGH CARDIOVASCULAR RISK Normal [facility] Comment on above: Performed By: #### L IPID, CMP #### [facility] [address] [place] [address] Dr. Holly Fisher LDL CALC NORMAL SEE BELOW Normal [facility] Comment on above: Result Comment: <100 mg/dl OPTIMAL 100 - 129 mg/dl NEAR OR ABOVE OPTIMAL 130 - 159 mg/dl BORDERLINE HIGH 160 - 189 mg/dl HIGH >190 mg/dl VERY HIGH Performed By: #### L IPID, CMP #### [facility] [address] [place] [address] Dr. Holly Fisher Triglyceride [Mass/Vol] 199 mg/dL Critically high <=150 [facility] Comment on above: Performed By: #### L IPID, CMP #### [facility] [address] [place] [address] [address] Holly Fisher VLDL CALC 39.8 mg/dL Normal [facility] Comment on above: Performed By: #### L IPID, CMP #### [facility] [address] [place] [address] [address] Holly Fisher MG MAMM SCREEN 3D SHERRIE CADon 03-05-2022 MG MAMM SCREEN 3D SHERRIE CAD Patient: LETTY COFFEY Exam Date: 03/05/2022 : 1945 Gender:F Ordering : DR EMELY THOMAS M.D. Admission #: [id number] Family : Order #: [id number] CLICK HERE TO VIEW EXAM RADIOLOGY REPORT [...] No Treatments None Family Cancers None LOCATION: [facility] BREAST COMPOSITION: Scattered areas fibroglandular density. FINDINGS: [...] Ortiz MD on 03/05/2022 at 09:55 Normal [facility] PROF 14(COMP METB)on 022 Albumin [Mass/Vol] 3.9 g/dL Normal 3.4-5.0 [facility] Comment on above: Performed By: #### L IPID, CMP #### [facility] [address] [place] [address] [address] Holly Fisher Albumin/Globulin [Mass ratio] 1.1 {ratio} Normal [facility] Comment on above: Performed By: #### L IPID, CMP #### [facility] [address] [place] [address] [address] Holly Fisher ALP [Catalytic activity/Vol] 54 U/L Normal 46-116 [facility] Comment on above: Performed By: #### L IPID, CMP #### [facility] [address] [place] [address] [address] Holly Fisher ALT [Catalytic activity/Vol] 22 U/L Normal 14-59 [facility] Comment on above: Performed By: #### L IPID, CMP #### [facility] [address] [place] [address] [address] Holly Fisher Anion gap [Moles/Vol] 12.5 mmol/L Normal [facility] Comment on above: Performed By: #### L IPID, CMP #### [facility] [address] [place] [address] [address] Holly Fisher AST [Catalytic activity/Vol] 14 U/L Critically low 15-37 [facility] Comment on above: Performed By: #### L IPID, CMP #### [facility] [address] [place] [address] Dr. Holly Fisher Bilirubin [Mass/Vol] 0.4 mg/dL Normal 0.2-1.0 [facility] Comment on above: Performed By: #### L IPID, CMP #### [facility] [address] [place] [address] Dr. Holly Fisher Calcium [Mass/Vol] 8.6 mg/dL Normal 8.5-10.1 [facility] Comment on above: Performed By: #### L IPID, CMP #### [facility] [address] [place] [address] Dr. oHlly Fisher Chloride [Moles/Vol] 106 mmol/L Normal 98-107 [facility] Comment on above: Performed By: #### L IPID, CMP #### [facility] [address] [place] [address] [address] Holly Fisher CO2 [Moles/Vol] 26.8 mmol/L Normal 21.0-32.0 [facility] Comment on above: Performed By: #### L IPID, CMP #### [facility] [address] [place] [address] [address] Holly Fisher Creatinine [Mass/Vol] 0.60 mg/dL Normal 0.55-1.02 [facility] Comment on above: Performed By: #### L IPID, CMP #### [facility] [address] [place] [address] Dr. Holly Fisher EGFR-AF SAMMARINESE >60 Normal >=60 [facility] Comment on above: Performed By: #### L IPID, CMP #### [facility] [address] [place] [address] Dr. Holly Fisher EGFR-NON AF SAMMARINESE >60 Normal >=60 [facility] Comment on above: Performed By: #### L IPID, CMP #### [facility] [address] [place] [address] Dr. Holly Fisher Globulin (S) [Mass/Vol] 3.4 g/dL Normal [facility] Comment on above: Performed By: #### L IPID, CMP #### [facility] [address] [place] [address] Dr. Holly Fisher Glucose [Mass/Vol] 98 mg/dL Normal 74-106 [facility] Comment on above: Performed By: #### L IPID, CMP #### [facility] [address] [place] [address] Dr. Holly Fisher Potassium [Moles/Vol] 4.3 mmol/L Normal 3.5-5.1 [facility] Comment on above: Performed By: #### L IPID, CMP #### [facility] [address] [place] [address] Dr. Holly Fisher Protein [Mass/Vol] 7.3 g/dL Normal 6.4-8.2 [facility] Comment on above: Performed By: #### L IPID, CMP #### [facility] [address] [place] [address] Dr. Holly Fisher Sodium [Moles/Vol] 141 mmol/L Normal 136-145 [facility] Comment on above: Performed By: #### L IPID, CMP #### [facility] [address] [place] [address] Dr. Holly Fisher Urea nitrogen [Mass/Vol] 14.0 mg/dL Normal 7.0-18.0 [facility] Comment on above: Performed By: #### L IPID, CMP #### [facility] [address] [place] [address] [address] Holly Fisher Urea nitrogen/Creatinin e [Mass ratio] 23.3 mg/mg Normal [facility] Comment on above: Performed By: #### L IPID, CMP #### [facility] [address] [place] [id number] Holly Fisher XR DEXA BONE DENSITYon [...] by: YOUSUF ORTIZ Date: 2022-03-05 10:00 Normal [facility] History and Physicalon 04-27 HIM IP Note OR [facility] Normal [facility] OPERATIVE REPORT[facility]Y : [birth year][facility] REC NO: [id number] ROOM:ACCOUNT NO: [id number] ADMISSION DATE: 04/27/17PHYSICIAN: EMRE STAPLETONDATE OF PROCEDURE: [...] used to engage the membrane in a rpzdd-kgs-hwkw technique andthe membrane was elevated from the [...] theprocedure well without complications.EMRE DANIELBSD:04/27/2017 9:59:31 CD/[id number]#: [id number] Doc#: [id number] [facility] Vital Signs Date Time Vital Sign Value Performing Clinician Facility 06-30-2023 09:15-0400 Body height 158.75 cm Emely Thomas Other [facility] Other 06-30-2023 09:15-0400 Body mass index (BMI) [Ratio] 30.95 kg/m2 Emely Thomas Other [facility] Other 06-30-2023 09:15-0400 Body temperature 96.5 [degF] Emely Thomas Other [facility] Other 06-30-2023 09:15-0400 Body weight 78.02 kg Emely Thomas Other [facility] Other 06-30-2023 09:15-0400 Diastolic blood pressure 76 mm[Hg] Emely Thomas Other [facility] Other 06-30-2023 09:15-0400 Systolic blood pressure 156 mm[Hg] Emely Thomas Other [facility] Other 04-13-2023 15:00-0400 Body height 158.75 cm Emely Thomas Other [facility] Other 04-13-2023 15:00-0400 Body mass index (BMI) [Ratio] 31.49 kg/m2 Emely Thomas Other [facility] Other 04-13-2023 15:00-0400 Body weight 79.38 kg Emely Thomas Other [facility] Other 04-13-2023 15:00-0400 Diastolic blood pressure 78 mm[Hg] Emely Thomas Other [facility] Other 04-13-2023 15:00-0400 Systolic blood pressure 135 mm[Hg] Emely Thomas Other [facility] Other 03-18-2023 08:40-0400 Body height 158.75 cm Ej Thomas Other [facility] Other 03-18-2023 08:40-0400 Body mass index (BMI) [Ratio] 31.67 kg/m2 Ej Thomas Other [facility] Other 03-18-2023 08:40-0400 Body weight 79.83 kg Ej Thomas Other [facility] Other 03-18-2023 08:40-0400 Diastolic blood pressure 84 mm[Hg] Ej Thomas Other [facility] Other 03-18-2023 08:40-0400 Systolic blood pressure 134 mm[Hg] Ej Thomas Other [facility] Other 01-21-2023 11:00-0400 Body height 158.75 cm Emely Thomas Other [facility] Other 01-21-2023 11:00-0400 Body mass index (BMI) [Ratio] 32.21 kg/m2 Emely Thomas Other [facility] Other 01-21-2023 11:00-0400 Body weight 81.19 kg Emely Thomas Other [facility] Other 01-21-2023 11:00-0400 Diastolic blood pressure 82 mm[Hg] Emely Thomas Other [facility] Other 01-21-2023 11:00-0400 SaO2% (BldA) [Mass fraction] 97 % Emely Thomas Other [facility] Other 01-21-2023 11:00-0400 Systolic blood pressure 142 mm[Hg] Emely Thomas Other [facility] Other Encounters Encounter Date Encounter Type Care [...] 06-30-2023 End: 06-30-2023 ambulatory Emely Thomas Other [facility] Other Start: 06-30-2023 Office outpatient vi sit 15 minutes Emely Thomas [facility] Start: 05-18-2023 End: 05-18-2023 ambulatory Emely Thomas Other [facility] Other Start: 05-18-2023 Telephone encounter Emely Thomas [facility] Start: 05-13-2023 End: 05-14-2023 ambulatory [facility] Start: 05-13-2023 End: 05-13-2023 ambulatory [facility] Start: 04-16-2023 End: 04-17-2023 ambulatory [facility] Start: 04-13-2023 End: 04-13-2023 ambulatory Emely Thomas Other [facility] Other Start: 04-13-2023 Office outpatient vi sit 15 minutes Emely Thomas [facility] Start: 04-05-2023 End: 04-05-2023 ambulatory Ej Thomas Other [facility] Other Start: 04-05-2023 Telephone encounter Ej Thomas [facility] Start: 03-18-2023 End: 03-18-2023 ambulatory Ej Thomas Other [facility] Other Start: 03-18-2023 Office outpatient ne w 30 minutes Ej Thomas [facility] Start: 02-09-2023 End: 02-10-2023 ambulatory NARENDRANATH LAKSHMIPATHY . Facility:[facility] Start: 02-01-2023 ambulatory NARENDRANATH LAKSHMIPATHY . Facility:[facility] Start: 01-28-[address] EMELY THOMAS Facil ity:[facility] Start: 01-28-2023 End: 01-29-2023 ambulatory NARENDRANATH LAKSHMIPATHY . Facility:[facility] Start: 01-21-2023 End: 01-21-2023 ambulatory Emely Thomas Other [facility] Other Start: 01-21-2023 Office outpatient vi sit 15 minutes Emely Thomas [facility] Start: 01-12-2023 End: 01-12-2023 ambulatory AURAMUNAVINAY BUCKLEYMIPATHY . Facility:[facility] Start: 12-31-2022 End: 01-01-[address] EMELY THOMAS Facility:[facility] Start: 12-28-2022 End: 12-28-[address] EMELY THOMAS Facility:[facility] Start: 12-24-2022 End: 12-25-[address] EMELY THOMAS Facility:[facility] Start: 10-07-2022 End: 10-08-2022 ambulatory SHAWNA RUIZ . Facility:[facility] Start: 09-03-2022 Encounter for preprocedural laboratory examination DR YULI LEES . [facility] Start: 09-01-2022 End: 09-01-[address] YULI LEES . Facility:[facility] Start: 08-28-2022 End: 08-29-[address] EMELY THOMAS Facility:[facility] Start: 08-28-2022 End: 08-29-2022 Encounter for preprocedural laboratory examination DR EMELY THOMAS Facility:[facility] Start: 08-11-2022 End: 08-11-[address] YULI LEES . Facility:[facility] Start: 08-08-2022 Encounter for preprocedural cardiovascular examination SHAWNA RUIZ . [facility] Start: 08-07-2022 End: 08-08-[address] EMELY [...] Start: 04-27-2017 End: 04-27-2017 Ambulatory EMRE STAPLETON [facility] Procedures Date Procedure Procedure Detail Performing Clinician Start: 07-25-2024 Intravitreal njx pharmacologic agt spx Dusty Nassar DO Work Phone: Start: 07-25-2024 Computerized ophthal jing imaging retina Dusty Nassar DO Work Phone: Start: 04-27-2017 DISCHARGE PATIENT CHARJoseph SANTAMARIA DARA Start: 04-27-2017 BEDREST MERE BYNUM Start: 04-27-2017 Continuous pulse oximetry EMRE [...] [address] [place] [address] Kriss Velez DO [address] [place] [address] [facility] Start: 07-25-2024 End: 07-25-2024 Clinical Support 07/25/2024 1:45 PM EDT Clinical Support [facility] [address] [place] [id number] Dusty Nassar DO [address] [place] [address] Arrived [facility] Comment on above: Arrived Start: 05-28-2024 Influenza vaccination Influenza Vacc ine (#1) [facility] Start: 02-26-2023 ambulatory Ambulatory Facility:[facility] 1 Intravitreal Injection, Pharmacologic Agent - OD - Right Eye Intravitreal Injection, Pharmacologic Agent - OD - Right Eye Ophthalmology Routine 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 eye with active choroidal neovascularization (HCC) (CMS/HCC) Ordered: 07/25/2024 [facility] Work Phone: Comment on above: Ordered: 07/25/2024 Immunizations Immunization Date Immunization Notes Care Provider Fa cility 07-26-2023 influenza virus vacc ine, unspecified formulation Dusty Nassar DO Work Phone: [facility] Payers Date Payer Category Payer [facility] [id number] 2017 Medicare MEDICARE [id number] 2014 Unknown [id number] 1959 [employer] [place] [employer] [facility] [id number] 2.16.840.1.096223.19 1957 Medicare [id number] 2.16.840.1.061707. 1959 Unknown [id number] 1947 Unknown [id number] 2.16.840.1.901363.3.579.2. 593 1947 Unknown [id number] 2.16.840.1.098841.3.579.2. 593 1947 Unknown [id number] 2.16.840.1.850715.3.579.2. 593 1947 Unknown [id number] 2.16.840.1.137605.3.579.2. 593 1947 Unknown [id number] 2.16.840.1.436444.3.579.2. 593 1947 Unknown [id number] 2.16.840.1.640482.3.579.2. 593 1947 Unknown [id number] 2.16.840.1.811625.3.579.2. 593 1947 Unknown [id number] 2.16.840.1.271814.3.579.2. 593 1947 Unknown [id number] 2.16.840.1.036284.3.579.2. 593 1947 Unknown [id number] 2.16.840.1.589982.3.579.2. 593 1947 Unknown [id number] 2.16.840.1.489105.3.579.2. 593 1947 Unknown [id number] 2.16.840.1.236185.3.579.2. 593 1947 Unknown [id number] 2.16.840.1.068093.3.579.2. 593 1947 Unknown [id number] 2.16.840.1.034148.3.579.2. 593 1947 Unknown [id number] 2.16.840.1.900756.3.579.2. 593 1947 Unknown [id number] 2.16.840.1.717940.3.579.2. 593 1947 Unknown [id number] 2.16.840.1.097344.3.579.2. 593 1947 Unknown [id number] 2.16.840.1.065982.3.579.2. 593 1947 Unknown [id number] 2.16.840.1.737340.3.579.2. 593 1947 Unknown [id number] 2.16.840.1.486106.3.579.2. 593 1947 Unknown [id number] 2.16.840.1.609944.3.579.2. 593 1947 Unknown [id number] 2.16.840.1.539270.3.579.2. 593 1947 Unknown [id number] 2.16.840.1.355589.3.579.2. 593 1947 Unknown [id number] 2.16.840.1.887265.3.579.2. 593 1947 Unknown [id number] 2.16.840.1.761541.3.579.2. 593 1947 Unknown [id number] 2.16.840.1.663603.3.579.2. 1259 1947 Unknown [id number] 2.16.840.1.115442.3.579.2. 1259 1947 Unknown [id number] 2.16.840.1.752538.3.579.2. 1259 1947 Unknown [id number] 2.16.840.1.096719.3.579.2. 1259 1947 Unknown [id number] 2.16.840.1.853599.3.579.2. 1259 1947 Unknown [id number] 2.16.840.1.785473.3.579.2. 1259 1947 Unknown [id number] 2.16.840.1.764016.3.579.2. 1259 1947 Unknown [id number] 2.16.840.1.357539.3.579.2. 1259 1947 Unknown [id number] 2.16.840.1.454463.3.579.2. 1259 1947 Unknown [id number] 2.16.840.1.224902.3.579.2. 1259 Social History Date Type Detail Facility Unknown if ever smoked [facility] Other Start: 05-30-2024 Sex Assigned At [facility] Other Start: 10-11-2023 Tobacco smoking status WIIS Never smoked tobacco [facility] Start: 10-11-2023 [...] 2 MG/0.05ML Route: Intravitreal, Site: Left Eye [facility]: [id number], Lot: [id number], Expiration date: 08/27/2025, Waste: 0 mL Post-op [...] increased pain, redness, decreased vision or concerns. [facility] 07-25-2024 Note Right Eye Quality was good. Scan locations included subfoveal. Progression has been stable. Findings include abnormal foveal contour, pigment epithelial detachment. Left Eye Quality was good. Scan locations included subfoveal. Progression has been stable. Findings include abnormal foveal contour. [facility] 10-29-2024 History of Presen t illness Narrative [...] 2 MG/0.05ML Route: Intravitreal, Site: Left Eye [facility]: [id number], Lot: [id number], Expiration date: 08/27/2025, Waste: 0 mL Post-op [...] vision or concerns. documented in this encounter [facility] 06-30-2023 Evaluation note Encounter Date Diagnosis Assessment Notes Jun, Acute non-recurrent maxillary sinusitis (ICD-10 - J01.00) Finish antibiotic, stay hydrated. Ok for NSAIDs for head pressure. Call if no improvement. [facility] Other 08-17-2023 NoteSUBJECTIVE: Chief complaint: Back and right leg pain. History of present illness: Consultation referred by pain management, Dr. Layton of [facility]. Patient reports chronic low back pain for [...] found for any pre (more content not included)...[facility]08-17-2023 NoteSubjective: HPI: Letty Coffey is a 77 [...] and assess x-rays of back. Malina Mckeon MS3[facility]07-18-2023 Evaluation note* Encounter Date Diagnosis Assessment Notes [...] is busy with other appts right now. [facility] Other 06-22-2023 Evaluation note* Encounter Date Diagnosis [...] long as possible before considering surgical intervention. [facility] Other 05-04-2023 NoteCONSULTATION CONSULTATION DATE: 01/28/2023 TO: [...] our patients to inform us about any vpec-nsa-ewhudhm medications or herbal remedies/nutritional supplements/alternative remedies. 2. [...] treatment options with their primary care provider.[facility]Vhvguoba74-91-5441 Evaluation note * Encounter Date Diagnosis Assessment Notes Treatment Notes Treatment Clinical Notes Dec, Essential (primary) hypertension (ICD-10 - I10) new problem. rx handwritten. f/u 6 weeks. Dec, Other chronic pain (ICD-10 - G89.29) Dec, Pain in left shoulder (ICD-10 - M25.512) PT order given to pt. [facility] Other 04-06-2023 NoteCONSULTATION CONSULTATION DATE: 12/31/2022 TO: [...] our patients to inform us about any nodh-vqi-rhkijjh medications or herbal remedies/nutritional supplements/alternative remedies. 2. [...] treatment options with their primary care provider.[facility] CenterKtnyritw48-16-3035 Note CONSULTATION PROCEDURE DATE: 10/07/2022 PREOPERATIVE DIAGNOSIS: [...] fan-like pattern. Patient tolerated the procedure well.[facility] CenterNqoxeblq35-14-3770 NoteCONSULTATION CONSULTATION DATE: 10/07/2022 HISTORY OF PRESENT [...] sitting does decrease her pain. Medications include wkkj-foi-ukbdwhi Tylenol and the use of Salonpas patches. [...] otherwise indicated. Patient agrees with this plan.[facility] CenterBzunmhgv16-87-6454 NoteCONSULTATION CONSULTATION DATE: 07/30/2022 This is a [...] be followed up at the office thereafter.[facility] CenterHjywuylz65-58-1457 NoteCONSULTATION CONSULTATION DATE: 06/25/2022 HISTORY OF PRESENT [...] patient is in agreement with this plan.[facility] CenterFedahams30-12-4402 NoteCONSULTATION CONSULTATION DATE: 05/19/2022 CHIEF COMPLAINT: Right [...] like to proceed. CC: Emely Thomas M.D.[facility] CenterHbqelfhw15-38-4107 NoteCONSULTATION PROCEDURE DATE: 04/28/2022 PREOPERATIVE DIAGNOSIS: Right [...] Will be followed up in the office.[facility] CenterYymmxwhx68-14-1708 NoteCONSULTATION CONSULTATION DATE: 04/28/2022 CHIEF COMPLAINT: Right [...] like to proceed. CC: Emely Thomas M.D.[facility] CenterCnchjckx21-72-2093 NotePROCEDURE: XR HIP RT 2 3V W PELVIS COMPARISON: None. HISTORY: Arthropathy FINDINGS: BONES:No acute fracture or dislocation. Mild osteoarthropathy with marginal osteophyte formation. 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 No visible soft tissue swelling. EFFUSION:None visible. OTHER: Negative. 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 Electronically authenticated by: YOUSUF ORTIZ Date: 2022-03-05 10:09[facility] CenterEvaluation noteNo InformationNorth [place] Other evaluation note* Diagnosis Exudative age-related macular [...] History COLONOSCOPY Hospitalization History SEE SURGICAL HX [facility] Other History general Narrative - Reported* Type [...] growth surgery Hospitalization History SEE SURGICAL HX [facility] Other Summary Purpose Family History No Family History Records FoundNo Family History Records FoundNo Family History Records FoundNo Family History Records Found Advance Directives No Advanced Directives Records FoundNo Advanced Directives Records FoundNo Advanced Directives Records FoundNo Advanced Directives Records Found Additional Source Comments INFORMATION SOURCE (unrecogn ized section and content) DATE CREATED AUTHOR 03/23/2018 [facility] DATE CREATED AUTHOR AUTHOR'S ORGANIZ ATION 02/10/[address] [facility] DATE CREATED AUTHOR AUTHOR'S ORGANIZ ATION 05/19/2023 [place] DATE CREATED AUTHOR AUTHOR'S ORGANIZ ATION 07/27/2024 [facility] EPIC REASON FOR VISIT (unrecogniz ed section and content) Reason Comments Macular Degeneration Retinal Injection Care Teams (unrecognized sec tion and content) Manager Legal Relationship Specialty Start Date End Date Wiley Price MD [address] [place] [address] PCP - General Family Medicine 12/10/23 [place] [address] [place] [id number] Referring Physician Family Medicine 10/15/23 Manager Legal Relationship Specialty Start Date End Date Wiley Price MD [address] [place] [address] PCP - General Family Medicine 12/10/23 Kimber Price MD [address] [place] [address] Referring Physician Family Medicine 10/15/23 FOR RECORDS [...] BE BASED ON THE PRIMARY CLINICAL RECORDS. [facility]. provides no warranty or guarantee of the accuracy or completeness of information in this document.
== END 2024-08-11 09:25 | disposition home or self-care (01) ==
LOC: MAMMO 09:24
PROVIDERS: PCP Nurse Practitioner Family; Visit Provider Obstetrics & Gynecology
DX: Z12.31 Encounter for screening mammogram for malignant neoplasm of breast (principal)
CPT/HCPCS: 77063; 77067

== ENCOUNTER 2024-08-15 13:33 | Outpatient (OUT) | payer MEDICARE, BC, SELFPAY ==
--- NOTE | 2024-08-15 | CONS_ITS ---
PROCEDURE DATE: 08/15/2024 TO: Kimber Price CNP PROCEDURE: Left subdeltoid bursa injection. PREOPERATIVE DIAGNOSIS: Pain secondary to left subdeltoid bursitis, impingement syndrome, possible rotator cuff tear. POSTOPERATIVE DIAGNOSIS: Pain secondary to left subdeltoid bursitis, impingement syndrome, possible rotator cuff tear. SOLUTION USED FOR INJECTION: 2 mL of 2% lidocaine, 2 mL of 0.25% Marcaine and 20 mg of Kenalog, total of 5 mL, and 2.5 mL used for the injection at the site. IMMEDIATE COMPLICATIONS: None. PROCEDURE: After informed consent was obtained from the patient, placed in the sitting position. Skin overlying the area was prepped with alcohol. A 25 gauge 1 ?? needle inserted into the left subdeltoid area. Needle tip advanced until it was encountered. Injected 2.5 mL of solution. No indication of intravascular or intraneural needle tip placement or injection. She reports reduction in pain symptoms post procedurally. Post procedure, needle was removed. Discharged after meeting criteria. TRENT
== END 2024-08-15 13:34 | disposition home or self-care (01) ==
LOC: PM 13:33
PROVIDERS: PCP Nurse Practitioner Family; Visit Provider Nurse Practitioner
DX: M75.52 Bursitis of left shoulder (principal); M75.42 Impingement syndrome of left shoulder; M16.11 Unilateral primary osteoarthritis, right hip
CPT/HCPCS: 20610; 73502; J0665; J3301

== ENCOUNTER 2024-08-15 14:41 | Outpatient (OUT) | payer MEDICARE, BC, SELFPAY ==
--- NOTE | 2024-08-15 14:51 | XR_ITS ---
The [address] [address] Patient Name: GAYATHRI LOPEZ MRN: [id number] date: 1945 Sex: F Assigned Patient Location: [facility] Current Patient Location: [facility] Accession/Order Number: [id number] Exam Date: 08/15/2024 14:52 Report Date: 08/17/2024 06:49 At the request of: MORRIS LEPE Procedure: XR hip RT min 2V PROCEDURE: XR hip RT min 2V HISTORY: Right Hip osteoarthritis ; right hip and leg pain COMPARISON: None. FINDINGS: BONES:No fracture, acute abnormality, or significant arthropathy. SOFT TISSUES:No visible soft tissue swelling. EFFUSION:None visible. OTHER: Negative. XR/XR hip RT min 2V IMPRESSION: 1. No acute bone abnormality or significant degenerative joint disease. Electronically authenticated by: OFE LOPEZ Date: 08/17/2024 06:49
--- OUTSIDE RECORDS SUMMARY | 2024-08-15 15:02 | XMS_ITS | CCD ---
Author Organization [facility] Care Team Providers Care Documentation Spec Name Role Phone DARA EMRE Mario Alberto [...] Nguyen Admitting Unavailable LEES ., DR YULI gNuyen Consulting Unavailable LEES ., DR YULI Nguyen Admitting Unavailable LEES ., DR YULI Nguyen Attending Unavailable MARTHA, DR EMELY Becker Primary Care Unavailable LAKSHMIPATHY ., NARHARVINDER Admitting Johanny vailable LAKSHMIPATHY ., MORRIS Attending Johanny vailable MARTHA, DR EMELY Becker Primary Care Unavailable DEN[place], DR YOUSUF Ferguson Consulting Unavailable MARTHA, DR [...] LEES ., DR YULI Nguyen Attending Unavailable DEN[place], DR YOUSUF Ferguson Consulting Unavailable THOMAS, DR [...] mg oral tablet (2 sources) Glucosamine-Eugene droitin-MSM (Zeukxa-Dgzcc-FRS-Double Str) 500-400-167 MG tablet every 12 (twelve) hours Active 1 ml denosumab 60 mg/ml prefilled syringe (8 sources) RANK Ligand Inhibitor denosumab (Prolia) 6 0 MG/ML solution prefilled syringe as directed Subcutaneous Active Fish Oils (5 sources) take 1 capsule by mouth once daily Fish Oil 1000 MG 1 capsule Orally Once a day Active Dktndc-Eumu-IBL-Ca-C-CtCl -SeCu - (5 sources) Swaxae-Spqs-AUD- Wp-F-EbJy-SeCu - as directed Orally Active losartan potassium [...] each day at the same time Active Convent-3 Fatty Acids (Fish Oil) 1200 MG capsule delayed-release (2 sources) take 1 capsule by mouth every twelve hours Convent-3 Fatty Acids (Fish Oil) 1200 MG capsule [...] unspecified] Chronic Other aftercare (3 sources) 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 Radiology Study observation (narrative) [facility] Optical coherence tomography study reporton 07-25-2024 [facility] Radiology Study observation (narrative) [facility] 36on 05-17-2023 36 Spoke with patient. 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 Normal [facility] 36on 05-14-2023 36 Left message for an [...] [facility]23 Telephone [phone] Licha1945 F Date Provider Department Center 05/14/2023 [id number] Second Fl Family History Problem Relation Age of Onset Other Mother Stomach cancer Father Family Status - Relation Status Age at Mother Father Normal [facility] Consulton 05-13-2023 Consult [id number] Licha ice 1945 F Date Provider Department Center 05/13/2023 [id number] Second Fl Family History Problem Relation Age of Onset Other Mother Stomach cancer Father Family Status - Relation Status Age at Mother Father Level of Service:51137 NC OFFICE/OUTPATIENT NEW MODERATE MDM 45-59 MINUTES Reason for Visit and Comments: Consult [484] - Pt is here for a CO visit for Spinal Stenosis. Normal [facility] 36on 04-16-2023 36 LVM for pt to call jose shanks to schedule with or Dr. Lopez for Lunbar Stenosis. Imaging requested from Brent. Normal [facility] MRI [...] OFE COFFEY Date: 2023-02-10 07:16 Normal [facility] CALCIUMon 12-24-2022 Calcium [Mass/Vol] 9.7 mg/dL Normal 8.5-10.1 [facility] Comment on above: Performed By: #### C Dora, CREA ####[facility] [address] [place] [address]Dr. Holly Phillip CREATININEon 12-24-2022 Creatinine [Mass/Vol] 0.62 mg/dL Normal 0.55-1.02 [facility] Comment on above: Performed By: #### C Dora, CREA ####[facility] [address] [place] [address]Dr. Holly Fisher EGFR-AF NIUEAN >60 Normal >=60 [facility] Comment on above: Performed By: #### C Dora, CREA ####[facility] [address] [place] [address]Dr. Holly Fisher EGFR-NON AF NIUEAN >60 Normal >=60 [facility] Comment on above: Performed By: #### C Dora, CREA ####[facility] [address] [place] [address]Dr. Holly Fisher Covid-19 PCR ([facility])on SARS-CoV-2 (COVID-19) RNA FRED+probe Ql (Unsp spec) Not detected Normal NOT DETECTED [facility] Comment on above: Result Comment: This test is not yet approved or cleared by the [place] FDA. When there are no FDA-approved or cleared tests available, and other criteria are met, FDA can make tests available under an emergency access mechanism called an Emergency Use Authorization (EUA). The EUA for this test is supported by the Electronic Engineering Draftsperson of Health and Human Service's (HHS's) declaration [...] with SARS-CoV-2. Performed By: #### C VDTB ####[facility] [address] [place] [address]Dr. Holly iFsher Covid-19 PCR ([facility])on 07-28 SARS-CoV-2 (COVID-19) RNA FRED+probe Ql (Unsp spec) Not detected Normal NOT DETECTED [facility] Comment on above: Result Comment: This test is not yet approved or cleared by the [place] FDA. When there are no FDA-approved or cleared tests available, and other criteria are met, FDA can make tests available under an emergency access mechanism called an Emergency Use Authorization (EUA). The EUA for this test is supported by the [place] of Health and Human Service's (HHS's) declaration [...] SARS-CoV-2. Performed By: #### C VDTB #### [facility] [address] [place], [place] [address] Dr. Holly Wayne 06-12-2022 Calcium [Mass/Vol] 9.0 mg/dL Normal 8.5-10.1 [facility] Comment on above: Performed By: #### XAVIER HOOD ####[facility] [address] [place], [place] [address]MoDr. Holly Fisher CREATININEon 06-12-2022 Creatinine [Mass/Vol] 0.65 mg/dL Normal 0.55-1.02 [facility] Comment on above: Performed By: #### Jose ALMEIDA, [place] #### [facility] [address] [place], [place] [address] Dr. Holly Fisher EGFR-AF NIUEAN >60 Normal >=60 [facility] Comment on above: Performed By: #### C JUAN PABLO CA #### [facility] [address] [place] [address] [address] Holly Fisher EGFR-NON AF NIUEAN >60 Normal >=60 [facility] Comment on above: Performed By: #### XAVIER HOOD #### [facility] [address] [place] [address] [address] Holly Fisher XR LSPINE W_OBLS AND [...] YOUSUF ORTIZ Date: 2022-05-04 08:47 Normal [facility] CBC AUTO DIFFon 03-05-2022 BASO # 0.1 103/ul Normal 0.0-0.1 [facility] Comment on above: Performed By: #### C BC ####[facility] [address] [place] [id number]. Holly Fisher Basophils/100 WBC (Bld) 1.0 % Normal 0.2-2.0 [facility] Comment on above: Performed By: #### C BC ####[facility] [address] [place], [place] [address]Dr. Holly Fisher EO # 0.2 103/ul Normal 0.0-0.7 [facility] Comment on above: Performed By: #### C BC ####[facility] [address] [place], [place] [address]Dr. Holly Fisher Eosinophils/100 WBC (Bld) 2.4 % Normal 0.9-7.0 [facility] Comment on above: Performed By: #### C BC ####[facility] [address] [place], [place] [address]Dr. Holly Fisher Erythrocyte distribution width (RBC) [Ratio] 14.4 % Normal 11.0-15.0 [facility] Comment on above: Performed By: #### C BC ####[facility] [address] [place], [place] [address]Dr. Holly Fisher Hematocrit (Bld) [Volume fraction] 41.1 % Normal 36.0-48.0 [facility] Comment on above: Performed By: #### C BC ####[facility] [address] [place], [place] [address]Dr. Holly Fisher Hemoglobin (Bld) [Mass/Vol] 13.4 g/dL Normal 12.0-16.0 [facility] Comment on above: Performed By: #### C BC ####[facility] [address] [place], [place] [address]Dr. Holly Fisher IG # 0.03 10e3/ul Normal 0.00-0.03 [facility] Comment on above: Performed By: #### C BC ####[facility] [address] [place], [place] [address]Dr. Holly Fisher IG % 0.5 % Normal 0.0-0.5 [facility] Comment on above: Performed By: #### C BC ####[facility] [address] [place] [address]Dr. Holly Fisher LYMPH # 1.5 103/ul Normal 1.2-3.8 [facility] Comment on above: Performed By: #### C BC ####[facility] [address] [place] [id number]. Holly Phillip Lymphocytes/100 WBC (Bld) 24.3 % Normal 20.5-60.0 [facility] Comment on above: Performed By: #### C BC ####[facility] [address] [place] [address]Dr. Lindaban Fisher MANUAL DIFF REQ NO Normal [facility] Comment on above: Performed By: #### C BC ####[facility] [address] [place] [id number]. Holly Phillip MCH (RBC) [Entitic mass] 30.3 pg Normal 26.7-34.0 [facility] Comment on above: Performed By: #### C BC ####[facility] [address] [place] [address]Dr. Holly Fisher MCHC (RBC) [Mass/Vol] 32.6 g/dL Normal 29.9-35.2 [facility] Comment on above: Performed By: #### C BC ####[facility] [address] [place] [id number]. Holly Fisher MCV (RBC) [Entitic vol] 93.0 fL Normal 81.0-99.0 [facility] Comment on above: Performed By: #### C BC ####[facility] [address] [place] [address]Dr. Holly Phillip MONO # 0.5 103/ul Normal 0.3-0.8 [facility] Comment on above: Performed By: #### C BC ####[facility] [address] [place] [address]Dr. Holly Phillip Monocytes/100 WBC (Bld) 7.3 % Normal 1.7-12.0 [facility] Comment on above: Performed By: #### C BC ####[facility] [address] [place], [place] [address]Nm. Lindaban Fisher NEUT # 4.1 103/ul Normal 1.4-6.5 [facility] Comment on above: Performed By: #### C BC ####[facility] [address] [place], [place] [address]Hb. Holly Fisher Neutrophils/100 WBC (Bld) 64.5 % Normal 43.0-75.0 [facility] Comment on above: Performed By: #### C BC ####[facility] [address] [place] [phone]. Holly Fisher Platelet mean volume (Bld) [Entitic vol] 10.5 fL Normal 9.5-13.5 [facility] Comment on above: Performed By: #### C BC ####[facility] [address] [place] [id number]. Holly Fisher PLT 253 103/ul Normal 150-450 [facility] Comment on above: Performed By: #### C BC ####[facility] [address] [place] [address]Dr. Holly Fisher RBC 4.42 106/ul Normal 4.20-5.40 [facility] Comment on above: Performed By: #### C BC ####[facility] [address] [place] [id number]. Holly Fisher WBC 6.3 103/ul Normal 4.0-11.0 [facility] Comment on above: Performed By: #### C BC ####[facility] [address] [place] [id number] Fisher LIPID PROFILEon 03-05-2022 CHOL-HDL RATIO NORM SEE BELOW Normal [facility] Comment on above: Result Comment: 3.3 - 4.4 LOW RISK 4.4 - 7.1 AVERAGE RISK 7.1 - 11.0 MODERATE RISK >11.0 HIGH RISK Performed By: #### L IPID, CMP #### [facility] [address] [place], [place] [address] Dr. Holly Fisher Cholesterol [Mass/Vol] 263 mg/dL Critically high <=200 [facility] Comment on above: Performed By: #### L IPID, CMP #### [facility] [address] [place] [address] [address] Holly Fisher Cholesterol in HDL [Mass/Vol] 63 mg/dL Critically high 40-60 [facility] Comment on above: Performed By: #### L IPID, CMP #### [facility] [address] [place] [address] [address] Holly Fisher Cholesterol in LDL [Mass/Vol] 160.2 mg/dL Normal [facility] Comment on above: Performed By: #### L IPID, CMP #### [facility] [address] [place] [address] Dr. Holly Fisher Cholesterol.total/ Cholesterol in HDL [Mass ratio] 4.2 {ratio} Normal [facility] Comment on above: Performed By: #### L IPID, CMP #### [facility] [address] [place] [address] Dr. Holly Fisher HDL NORMAL > or = 60 mg/dl - LO W CARDIOVASCULAR RISK <40 mg/dl - HIGH CARDIOVASCULAR RISK Normal [facility] Comment on above: Performed By: #### L IPID, CMP #### [facility] [address] [place] [address] Dr. Holly Fisher LDL CALC NORMAL SEE BELOW Normal [facility] Comment on above: Result Comment: <100 mg/dl OPTIMAL 100 - 129 mg/dl NEAR OR ABOVE OPTIMAL 130 - 159 mg/dl BORDERLINE HIGH 160 - 189 mg/dl HIGH >190 mg/dl VERY HIGH Performed By: #### L IPID, CMP #### [facility] [address] [place] [address] Dr. Holly Fisher Triglyceride [Mass/Vol] 199 mg/dL Critically high <=150 [facility] Comment on above: Performed By: #### L IPID, CMP #### [facility] [address] [place] [address] [address] Holly Fisher VLDL CALC 39.8 mg/dL Normal [facility] Comment on above: Performed By: #### L IPID, CMP #### [facility] [address] [place] [address] [address] Holly Fisher MG MAMM SCREEN 3D SHERRIE CADon 03-05-2022 MG MAMM SCREEN 3D SHERRIE CAD Patient: LETTY COFFEY Exam Date: 03/05/2022 : 1945 Gender:F Ordering : DR EMELY THOMAS M.D. Admission #: [id number] Family : Order #: [id number] CLICK HERE TO VIEW EXAM RADIOLOGY REPORT [...] No Treatments None Family Cancers None LOCATION: [facility] BREAST COMPOSITION: Scattered areas fibroglandular density. FINDINGS: [...] MD on 03/05/2022 at 09:53 Approved by: Yousfu Ortiz MD on 03/05/2022 at 09:55 Normal [facility] PROF 14(COMP METB)on 022 Albumin [Mass/Vol] 3.9 g/dL Normal 3.4-5.0 [facility] Comment on above: Performed By: #### L IPID, CMP #### [facility] [address] [place] [address] [address] Holly Fisher Albumin/Globulin [Mass ratio] 1.1 {ratio} Normal [facility] Comment on above: Performed By: #### L IPID, CMP #### [facility] [address] [place] [address] [address] Holly Fisher ALP [Catalytic activity/Vol] 54 U/L Normal 46-116 [facility] Comment on above: Performed By: #### L IPID, CMP #### [facility] [address] [place] [address] [address] Holly Fisher ALT [Catalytic activity/Vol] 22 U/L Normal 14-59 [facility] Comment on above: Performed By: #### L IPID, CMP #### [facility] [address] [place] [address] [address] Holly Fisher Anion gap [Moles/Vol] 12.5 mmol/L Normal [facility] Comment on above: Performed By: #### L IPID, CMP #### [facility] [address] [place] [address] [address] Holly Fisher AST [Catalytic activity/Vol] 14 U/L Critically low 15-37 [facility] Comment on above: Performed By: #### L IPID, CMP #### [facility] [address] [place] [address] Dr. Holly Fisher Bilirubin [Mass/Vol] 0.4 mg/dL Normal 0.2-1.0 [facility] Comment on above: Performed By: #### L IPID, CMP #### [facility] [address] [place] [address] Dr. Holly Fisher Calcium [Mass/Vol] 8.6 mg/dL Normal 8.5-10.1 [facility] Comment on above: Performed By: #### L IPID, CMP #### [facility] [address] [place] [address] Dr. Holly Fisher Chloride [Moles/Vol] 106 mmol/L Normal 98-107 [facility] Comment on above: Performed By: #### L IPID, CMP #### [facility] [address] [place] [address] [address] Holly Fisher CO2 [Moles/Vol] 26.8 mmol/L Normal 21.0-32.0 [facility] Comment on above: Performed By: #### L IPID, CMP #### [facility] [address] [place] [address] [address] Holly Fisher Creatinine [Mass/Vol] 0.60 mg/dL Normal 0.55-1.02 [facility] Comment on above: Performed By: #### L IPID, CMP #### [facility] [address] [place] [address] Dr. Holly Fisher EGFR-AF NIUEAN >60 Normal >=60 [facility] Comment on above: Performed By: #### L IPID, CMP #### [facility] [address] [place] [address] Dr. Holly Fisher EGFR-NON AF NIUEAN >60 Normal >=60 [facility] Comment on above: Performed By: #### L IPID, CMP #### [facility] [address] [place] [address] Dr. Holly Fisher Globulin (S) [Mass/Vol] 3.4 g/dL Normal [facility] Comment on above: Performed By: #### L IPID, CMP #### [facility] [address] [place] [address] Dr. Holly Fisher Glucose [Mass/Vol] 98 mg/dL Normal 74-106 [facility] Comment on above: Performed By: #### L IPID, CMP #### [facility] [address] [place] [address] Dr. Holly Fisher Potassium [Moles/Vol] 4.3 mmol/L Normal 3.5-5.1 [facility] Comment on above: Performed By: #### L IPID, CMP #### [facility] [address] [place] [address] Dr. Holly Fisher Protein [Mass/Vol] 7.3 g/dL Normal 6.4-8.2 [facility] Comment on above: Performed By: #### L IPID, CMP #### [facility] [address] [place] [address] Dr. Holly Fisher Sodium [Moles/Vol] 141 mmol/L Normal 136-145 [facility] Comment on above: Performed By: #### L IPID, CMP #### [facility] [address] [place] [address] Dr. Holly Fisher Urea nitrogen [Mass/Vol] 14.0 mg/dL Normal 7.0-18.0 [facility] Comment on above: Performed By: #### L IPID, CMP #### [facility] [address] [place] [address] [address] Holly Fisher Urea nitrogen/Creatinin e [Mass ratio] 23.3 mg/mg Normal [facility] Comment on above: Performed By: #### L IPID, CMP #### [facility] [address] [place] [id number] 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 Normal [facility] OPERATIVE REPORTon [facility] : [birth year][facility] REC NO: [id number] ROOM:ACCOUNT NO: [id number] ADMISSION DATE: 04/27/17PHYSICIAN: EMRE STAPLETONDATE OF PROCEDURE: [...] used to engage the membrane in a xktyt-zig-povc technique andthe membrane was elevated from the [...] theprocedure well without complications.EMRE DANIELBSD:04/27/2017 9:59:31 CD/[id number]_TJob#: [id number] Doc#: [id number] [facility] Vital Signs Date Time Vital Sign Value Performing Clinician Facility 06-30-2023 09:15-0400 Body height 158.75 cm Emely Thomas Other [facility] Other 06-30-2023 09:15-0400 Body mass index (BMI) [Ratio] 30.95 kg/m2 Emely Thomas Other [facility] Other 06-30-2023 09:15-0400 Body temperature 96.5 [degF] Emely Thomas Other [facility] Other 06-30-2023 09:15-0400 Body weight 78.02 kg Emely Thomas Other [facility] Other 06-30-2023 09:15-0400 Diastolic blood pressure 76 mm[Hg] Emely Thomas Other [facility] Other 06-30-2023 09:15-0400 Systolic blood pressure 156 mm[Hg] Emely Thomas Other [facility] Other 04-13-2023 15:00-0400 Body height 158.75 cm Emely Thomas Other [facility] Other 04-13-2023 15:00-0400 Body mass index (BMI) [Ratio] 31.49 kg/m2 Emely Thomas Other [facility] Other 04-13-2023 15:00-0400 Body weight 79.38 kg Emely Thomas Other [facility] Other 04-13-2023 15:00-0400 Diastolic blood pressure 78 mm[Hg] Emely Thomas Other [facility] Other 04-13-2023 15:00-0400 Systolic blood pressure 135 mm[Hg] Emely Thomas Other [facility] Other 03-18-2023 08:40-0400 Body height 158.75 cm Ej Thomas Other [facility] Other 03-18-2023 08:40-0400 Body mass index (BMI) [Ratio] 31.67 kg/m2 Ej Thomas Other [facility] Other 03-18-2023 08:40-0400 Body weight 79.83 kg Ej Thomas Other [facility] Other 03-18-2023 08:40-0400 Diastolic blood pressure 84 mm[Hg] Ej Thomas Other [facility] Other 03-18-2023 08:40-0400 Systolic blood pressure 134 mm[Hg] Ej Thomas Other [facility] Other 01-21-2023 11:00-0400 Body height 158.75 cm Emely Thomas Other [facility] Other 01-21-2023 11:00-0400 Body mass index (BMI) [Ratio] 32.21 kg/m2 Emely Thomas Other [facility] Other 01-21-2023 11:00-0400 Body weight 81.19 kg Emely Thomas Other [facility] Other 01-21-2023 11:00-0400 Diastolic blood pressure 82 mm[Hg] Emely Thomas Other [facility] Other 01-21-2023 11:00-0400 SaO2% (BldA) [Mass fraction] 97 % Emely Thomas Other [facility] Other 01-21-2023 11:00-0400 Systolic blood pressure 142 mm[Hg] Emely Thomas Other [facility] Other Encounters Encounter Date Encounter Type Care [...] 06-30-2023 End: 06-30-2023 ambulatory Emely Thomas Other [facility] Other Start: 06-30-2023 Office outpatient vi sit 15 minutes Emely Thomas [facility] Start: 05-18-2023 End: 05-18-2023 ambulatory Emely Thomas Other [facility] Other Start: 05-18-2023 Telephone encounter Emely Thomas [facility] Start: 05-13-2023 End: 05-14-2023 ambulatory [facility] Start: 05-13-2023 End: 05-13-2023 ambulatory [facility] Start: 04-16-2023 End: 04-17-2023 ambulatory [facility] Start: 04-13-2023 End: 04-13-2023 ambulatory Emely Thomas Other [facility] Other Start: 04-13-2023 Office outpatient vi sit 15 minutes Emely Thomas [facility] Start: 04-05-2023 End: 04-05-2023 ambulatory Ej Thomas Other [facility] Other Start: 04-05-2023 Telephone encounter Ej Thomas [facility] Start: 03-18-2023 End: 03-18-2023 ambulatory Ej Thomas Other [facility] Other Start: 03-18-2023 Office outpatient ne w 30 minutes Ej Thomas [facility] [place], operated by [facility] Start: 02-09-2023 End: 02-10-2023 ambulatory NARENDRANATH LAKSHMIPATHY . Facility:[facility] Start: 02-01-2023 ambulatory NARENDRANATH LAKSHMIPATHY . Facility:[facility] Start: 01-28-[address] EMELY THOMAS Facil ity:[facility] Start: 01-28-2023 End: 01-29-2023 ambulatory NARENDRANATH LAKSHMIPATHY . Facility:[facility] Start: 01-21-2023 End: 01-21-2023 ambulatory Emely Thomas Other [facility] Other Start: 01-21-2023 Office outpatient vi sit 15 minutes Emely Thomas [facility] Start: 01-12-2023 End: 01-12-2023 ambulatory AURAMUNAVINAY BUCKLEYMIPATHY . Facility:[facility] Start: 12-31-2022 End: 01-01-[address] EMELY THOMAS Facility:[facility] Start: 12-28-2022 End: 12-28-[address] EMELY THOMAS Facility:[facility] Start: 12-24-2022 End: 12-25-[address] EMELY THOMAS Facility:[facility] Start: 10-07-2022 End: 10-08-2022 ambulatory SHAWNA RUIZ . Facility:[facility] Start: 09-03-2022 Encounter for preprocedural laboratory examination DR YULI LEES . [facility] Start: 09-01-2022 End: 09-01-[address] YULI LEES . Facility:[facility] Start: 08-28-2022 End: 08-29-[address] EMELY THOMAS Facility:[facility] Start: 08-28-2022 End: 08-29-2022 Encounter for preprocedural laboratory examination DR EMELY THOMAS Facility:[facility] Start: 08-11-2022 End: 08-11-[address] YULI LEES . Facility:[facility] Start: 08-08-2022 Encounter for preprocedural cardiovascular examination SHAWNA RUIZ . [facility] Start: 08-07-2022 End: 08-08-[address] [...] Start: 04-27-2017 End: 04-27-2017 Ambulatory EMRE STAPLETON [facility] Procedures Date Procedure Procedure Detail Performing [...] STAPLETON Start: 04-27-2017 NOTIFY PHYSICIAN (SPECIFY) EMRE STAPLTEON Start: 04-27-2017 NURSING COMMUNICATION Jose STAPLETON Start: [...] [address] [place] [address] Kriss Velez DO [address] [place] [address] [facility] Start: 07-25-2024 End: 07-25-2024 Clinical Support 07/25/2024 1:45 PM EDT Clinical Support [facility] [address] [place] [id number] Dusty Nassar DO [address] [place] [address] Arrived [facility] Comment on above: Arrived Start: 05-28-2024 Influenza vaccination Influenza Vacc ine (#1) [facility] Start: 02-26-2023 ambulatory Ambulatory Facility:[facility] 1 Intravitreal Injection, Pharmacologic Agent - OD - Right Eye Intravitreal Injection, Pharmacologic Agent - OD - Right Eye Ophthalmology Routine 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 eye with active choroidal neovascularization (HCC) (CMS/HCC) Ordered: 07/25/2024 [facility] Work Phone: Comment on above: Ordered: 07/25/2024 Immunizations Immunization Date Immunization Notes Care Provider Fa cility 07-26-2023 influenza virus vacc ine, unspecified formulation Dusty Nassar DO Work Phone: [facility] Payers Date Payer Category Payer [facility] [id number] 2017 Medicare MEDICARE [id number] 2014 Unknown [id number] 1959 [employer] [place] Blue [facility] [id number] 2.16.840.1.385520.19 1959 Medicare [id number] 2.16.840.1.144264. 1959 Unknown [id number] 1947 Unknown [id number] 2.16.840.1.106793.3.579.2. 593 1947 Unknown [id number] 2.16.840.1.704394.3.579.2. 593 1947 Unknown [id number] 2.16.840.1.302843.3.579.2. 593 1947 Unknown [id number] 2.16.840.1.560920.3.579.2. 593 1947 Unknown [id number] 2.16.840.1.031153.3.579.2. 593 1947 Unknown [id number] 2.16.840.1.599088.3.579.2. 593 1947 Unknown [id number] 2.16.840.1.555172.3.579.2. 593 1947 Unknown [id number] 2.16.840.1.207357.3.579.2. 593 1947 Unknown [id number] 2.16.840.1.146024.3.579.2. 593 1947 Unknown [id number] 2.16.840.1.607527.3.579.2. 593 1947 Unknown [id number] 2.16.840.1.988098.3.579.2. 593 1947 Unknown [id number] 2.16.840.1.349791.3.579.2. 593 1947 Unknown [id number] 2.16.840.1.350872.3.579.2. 593 1947 Unknown [id number] 2.16.840.1.513879.3.579.2. 593 1947 Unknown [id number] 2.16.840.1.072009.3.579.2. 593 1947 Unknown [id number] 2.16.840.1.035583.3.579.2. 593 1947 Unknown [id number] 2.16.840.1.101382.3.579.2. 593 1947 Unknown [id number] 2.16.840.1.398731.3.579.2. 593 1947 Unknown [id number] 2.16.840.1.213752.3.579.2. 593 1947 Unknown [id number] 2.16.840.1.230510.3.579.2. 593 1947 Unknown [id number] 2.16.840.1.625841.3.579.2. 593 1947 Unknown [id number] 2.16.840.1.400955.3.579.2. 593 1947 Unknown [id number] 2.16.840.1.758897.3.579.2. 593 1947 Unknown [id number] 2.16.840.1.015415.3.579.2. 593 1947 Unknown [id number] 2.16.840.1.999171.3.579.2. 593 1947 Unknown [id number] 2.16.840.1.716087.3.579.2. 1259 1947 Unknown [id number] 2.16.840.1.669866.3.579.2. 1259 1947 Unknown [id number] 2.16.840.1.072673.3.579.2. 1259 1947 Unknown [id number] 2.16.840.1.026439.3.579.2. 1259 1947 Unknown [id number] 2.16.840.1.141499.3.579.2. 1259 1947 Unknown [id number] 2.16.840.1.528475.3.579.2. 1259 1947 Unknown [id number] 2.16.840.1.977117.3.579.2. 1259 1947 Unknown [id number] 2.16.840.1.270457.3.579.2. 1259 1947 Unknown [id number] 2.16.840.1.525201.3.579.2. 1259 1947 Unknown [id number] 2.16.840.1.239471.3.579.2. 1259 Social History Date Type Detail Facility Unknown if ever smoked [facility] [employer] Other Start: 05-30-2024 Sex Assigned At [facility] [employer] Other Start: 10-11-2023 Tobacco smoking status NEIS Never smoked tobacco [facility] Start: 10-11-2023 [...] 2 MG/0.05ML Route: Intravitreal, Site: Left Eye [facility]: 70681-498-98, Lot: [id number], Expiration date: 08/27/2025, Waste: 0 mL Post-op [...] increased pain, redness, decreased vision or concerns. [facility] 07-25-2024 Note Right Eye Quality was good. Scan locations included subfoveal. Progression has been stable. Findings include abnormal foveal contour, pigment epithelial detachment. Left Eye Quality was good. Scan locations included subfoveal. Progression has been stable. Findings include abnormal foveal contour. [facility] 10-29-2024 History of Presen t illness Narrative [...] 2 MG/0.05ML Route: Intravitreal, Site: Left Eye [facility]: [id number], Lot: [id number], Expiration date: 08/27/2025, Waste: 0 mL Post-op [...] vision or concerns. documented in this encounter [facility] 06-30-2023 Evaluation note Encounter Date Diagnosis Assessment Notes Jun, Acute non-recurrent maxillary sinusitis (ICD-10 - J01.00) Finish antibiotic, stay hydrated. Ok for NSAIDs for head pressure. Call if no improvement. [facility] Other 08-17-2023 NoteSUBJECTIVE: Chief complaint: Back and right leg pain. History of present illness: Consultation referred by pain management, Dr. Layton of [facility]. Patient reports chronic low back pain [...] and assess x-rays of back. Malina Mckeon MS3[facility] Evaluation note* Encounter Date Diagnosis Assessment Notes [...] is busy with other appts right now. [facility] Other 06-22-2023 Evaluation note* Encounter Date Diagnosis [...] long as possible before considering surgical intervention. [facility] Other 05-04-2023 NoteCONSULTATION CONSULTATION DATE: 01/28/2023 TO: [...] our patients to inform us about any aiwv-qep-wheaosz medications or herbal remedies/nutritional supplements/alternative remedies. 2. [...] treatment options with their primary care provider.[facility] [id number] Evaluation note * Encounter Date Diagnosis Assessment Notes Treatment Notes Treatment Clinical Notes Dec, Essential (primary) hypertension (ICD-10 - I10) new problem. rx handwritten. f/u 6 weeks. Dec, Other chronic pain (ICD-10 - G89.29) Dec, Pain in left shoulder (ICD-10 - M25.512) PT order given to pt. [facility] Other 04-06-2023 NoteCONSULTATION CONSULTATION DATE: 12/31/2022 TO: Emely Thoams M.D. CHIEF COMPLAINT: Includes right lower buttock [...] our patients to inform us about any budl-ewk-aohxnbc medications or herbal remedies/nutritional supplements/alternative remedies. 2. [...] treatment options with their primary care provider.[facility] HospitalUlsfulgz03-28-2444 Note CONSULTATION PROCEDURE DATE: 10/07/2022 PREOPERATIVE DIAGNOSIS: [...] fan-like pattern. Patient tolerated the procedure well.[facility] HospitalEnjdcnan46-22-4879 NoteCONSULTATION CONSULTATION DATE: 10/07/2022 HISTORY OF PRESENT [...] sitting does decrease her pain. Medications include plfp-fel-frnbxsi Tylenol and the use of Salonpas patches. [...] otherwise indicated. Patient agrees with this plan.[facility] [id number] NoteCONSULTATION CONSULTATION DATE: 07/30/2022 This is a [...] be followed up at the office thereafter.[facility] HospitalRfrhhkhi10-48-8657 NoteCONSULTATION CONSULTATION DATE: 06/25/2022 HISTORY OF PRESENT [...] patient is in agreement with this plan.[facility] HospitalConcwxpx60-58-4163 NoteCONSULTATION CONSULTATION DATE: 05/19/2022 CHIEF COMPLAINT: Right [...] like to proceed. CC: Emely Thomas M.D.[facility] [id number] NoteCONSULTATION PROCEDURE DATE: 04/28/2022 PREOPERATIVE DIAGNOSIS: Right [...] Will be followed up in the office.[facility] [id number] NoteCONSULTATION CONSULTATION DATE: 04/28/2022 CHIEF COMPLAINT: Right [...] like to proceed. CC: Emely Thomas M.D.[facility] HospitalMongknst40-21-8552 NotePROCEDURE: XR HIP RT 2 3V W PELVIS COMPARISON: None. HISTORY: Arthropathy FINDINGS: BONES:No acute fracture or dislocation. Mild osteoarthropathy with marginal osteophyte formation. 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 No visible soft tissue swelling. EFFUSION:None visible. OTHER: Negative. 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 Electronically authenticated by: YOUSUF ORTIZ Date: 2022-03-05 10:09[facility] HospitalEvaluation noteNo InformationNorth [employer] Other evaluation note* Diagnosis Exudative age-related macular [...] History COLONOSCOPY Hospitalization History SEE SURGICAL HX [facility] Other History general Narrative - Reported* Type [...] growth surgery Hospitalization History SEE SURGICAL HX [facility] Other Summary Purpose Family History No Family History Records FoundNo Family History Records FoundNo Family History Records FoundNo Family History Records Found Advance Directives No Advanced Directives Records FoundNo Advanced Directives Records FoundNo Advanced Directives Records FoundNo Advanced Directives Records Found Additional Source Comments INFORMATION SOURCE (unrecogn ized section and content) DATE CREATED AUTHOR 03/23/2018 [facility] DATE CREATED AUTHOR AUTHOR'S ORGANIZ ATION 02/10/2023 [facility] DATE CREATED AUTHOR AUTHOR'S ORGANIZ ATION 05/19/2023 [facility] DATE CREATED AUTHOR AUTHOR'S ORGANIZ ATION 07/27/2024 [facility] EPIC REASON FOR VISIT (unrecogniz ed section and content) Reason Comments Macular Degeneration Retinal Injection Care Teams (unrecognized sec tion and content) Documentation Spec Relationship Specialty Start Date End Date Wiley Price MD [address] [place] [address] PCP - General Family Medicine 12/10/23 [place] [address] [place] [id number] Referring Physician Family Medicine 10/15/23 Documentation Spec Relationship Specialty Start Date End Date Wiley Price MD [address] [place] [address] PCP - General Family Medicine 12/10/23 Kimber Price MD [address] [place] [address] Referring Physician Family Medicine 10/15/23 FOR RECORDS [...] BE BASED ON THE PRIMARY CLINICAL RECORDS. [employer] [facility]. provides no warranty or guarantee of the accuracy or completeness of information in this document.
== END 2024-08-15 14:42 | disposition home or self-care (01) ==
LOC: RAD 14:44
PROVIDERS: PCP Nurse Practitioner Family; Visit Provider Anesthesiology Pain Medicine
DX: M16.11 Unilateral primary osteoarthritis, right hip (principal)
CPT/HCPCS: 73502

== ENCOUNTER 2024-08-21 10:51 | Day surgery (SDC) | payer MEDICARE, BC, SELFPAY ==
--- OUTSIDE RECORDS SUMMARY | 2024-08-21 11:01 | XMS_ITS | CCD ---
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 Role Phone DARA EMRE Mario Alberto [...] MARTHA, DR EMELY Becker Primary Care Unavailable OYANA ., DR YULI Nguyen Consulting Unavailable LEES [...] MARTHA, DR EMELY Becker Primary Care Unavailable LOVINGSTON, DR YOUSUF Ferguson Consulting Unavailable MARTHA, DR [...] LEES ., DR YULI Nguyen Attending Unavailable LOVINGSTON, DR YOUSUF Ferguson Consulting Unavailable THOMAS, DR [...] EMELY Becker Attending Unavailable THOMAS, DR EMELY Bekcer Consulting Unavailable THOMAS, DR EMELY Becker Primary [...] ON FILE] Propensity to adverse reactions (disorder) [facility] Repository Medications Current Medications Medication Drug [...] mg oral tablet (2 sources) Glucosamine-Eugene droitin-MSM (Letvjk-Lfonb-IUI-Double Str) 500-400-167 MG tablet every 12 (twelve) hours Active 1 ml denosumab 60 mg/ml prefilled syringe (8 sources) RANK Ligand Inhibitor denosumab (Prolia) 6 0 MG/ML solution prefilled syringe as directed Subcutaneous Active Fish Oils (5 sources) take 1 capsule by mouth once daily Fish Oil 1000 MG 1 capsule Orally Once a day Active Gkslyt-Pxdz-LJN-Ca-C-CtCl -SeCu - (5 sources) Itfwgb-Dwbd-ECT- Av-U-AkAr-SeCu - as directed Orally Active losartan potassium [...] each day at the same time Active [place]-3 Fatty Acids (Fish Oil) 1200 MG capsule delayed-release (2 sources) take 1 capsule by mouth every twelve hours [place]-3 Fatty Acids (Fish Oil) 1200 MG capsule [...] unspecified] Chronic Other aftercare (3 sources) 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; Translations: [OTH LONG-TERM CURRENT DRUG THERAPY] Onset: 03-12-2022 Episodic Other bone disease and musculoskeletal deformities (5 sources) Osteopenia; Translations: [Other specified disorders of bone density and structure, unspecified site] Episodic Other bone disease and musculoskeletal deformities (6 sources) Other specified disorders of bone density and structure, unspecified site; Translations: [[facility] D/O BONE DEN STRUCT UNS SITE] Onset: [...] Facility Left eye Ophthalmologic chata tmenton 07-25-2024 [facility] Radiology Study observation (narrative) [facility] Optical coherence tomography study reporton 07-25-2024 [facility] Radiology Study observation (narrative) [facility] 36on 05-17-2023 36 Spoke with patient. [...] her to someone who does SCS. Normal [facility] 36on 05-14-2023 36 Left message for [...] on Wednesday to follow-up regarding this. Normal [facility] Telephoneon 05-14-2023 Telephone [id number] Licha1945 F Date Provider Department Center 05/14/2023 148-SALMA, [facility] Second Fl Family History Problem Relation Age of Onset Other Mother Stomach cancer Father Family Status - Relation Status Age at Mother Father Normal [facility] Consulton 05-13-2023 Consult [id number] Licha ice 1945 F Date Provider Department Center 05/13/2023 148-OVKIRBY, [facility] Second Fl Family History Problem Relation Age of Onset Other Mother Stomach cancer Father Family Status - Relation Status Age at Mother Father Level of Service:42490 [place] OFFICE/OUTPATIENT NEW MODERATE MDM 45-59 MINUTES Reason for Visit and Comments: Consult [484] - Pt is here for a CO visit for Spinal Stenosis. Normal [facility] 36on 04-16-2023 36 LVM for pt to call jose shanks to schedule with or Dr. Lopez for Lunbar Stenosis. Imaging requested from Brent. Normal [facility] MRI LSPINE WO CONon 02-11-20 23 [...] OFE COFFEY Date: 2023-02-10 07:16 Normal [facility] CALCIUMon 12-24-2022 Calcium [Mass/Vol] 9.7 mg/dL Normal 8.5-10.1 [facility] Comment on above: Performed By: #### C Dora, CREA ####[facility] [address] [place] [address]Dr. Holly Phillip CREATININEon 12-24-2022 Creatinine [Mass/Vol] 0.62 mg/dL Normal 0.55-1.02 [facility] Comment on above: Performed By: #### C Dora, CREA ####[facility] [address] [place] [address]Dr. Holly Fisher EGFR-AF RWANDAN >60 Normal >=60 [facility] Comment on above: Performed By: #### C Dora, CREA ####[facility] [address] [place] [address]Dr. Holly Fisher EGFR-NON AF RWANDAN >60 Normal >=60 [facility] Comment on above: Performed By: #### C Dora, CREA ####[facility] [address] [place] [address]Dr. Holly Ifsher Covid-19 PCR ([facility])on SARS-CoV-2 (COVID-19) RNA FRED+probe Ql (Unsp spec) Not detected Normal NOT DETECTED [facility] Comment on above: Result Comment: This test is not yet approved or cleared by the [place] FDA. When there are no FDA-approved or cleared tests available, and other criteria are met, FDA can make tests available under an emergency access mechanism called an Emergency Use Authorization (EUA). The EUA for this test is supported by the Patient Navigator of Health and Human Service's (HHS's) declaration [...] with SARS-CoV-2. Performed By: #### C VDTB ####[facility] [address] [place] [address]Dr. Holly Fisher Covid-19 PCR ([facility])on 07-28 SARS-CoV-2 (COVID-19) RNA FRED+probe Ql (Unsp spec) Not detected Normal NOT DETECTED [facility] Comment on above: Result Comment: This test is not yet approved or cleared by the [place] FDA. When there are no FDA-approved or cleared tests available, and other criteria are met, FDA can make tests available under an emergency access mechanism called an Emergency Use Authorization (EUA). The EUA for this test is supported by the Galien of Health and Human Service's (HHS's) declaration [...] SARS-CoV-2. Performed By: #### C VDTB #### [facility] [address] [place], [place] [address] Dr. Holly Wayne 06-12-2022 Calcium [Mass/Vol] 9.0 mg/dL Normal 8.5-10.1 [facility] Comment on above: Performed By: #### XAVIER HOOD ####[facility] [address] [place], [place] [address]Dr. Holly Fisher CREATININEon 06-12-2022 Creatinine [Mass/Vol] 0.65 mg/dL Normal 0.55-1.02 [facility] Comment on above: Performed By: #### Jose ALMEIDA, [place] #### [facility] [address] [place], [place] [address] Dr. Holly Fisher EGFR-AF RWANDAN >60 Normal >=60 [facility] Comment on above: Performed By: #### C JUAN PABLO CA #### [facility] [address] [place] [address] [address] Holly Fisher EGFR-NON AF RWANDAN >60 Normal >=60 [facility] Comment on above: Performed By: #### XAVIER HOOD #### [facility] [address] [place] [address] [address] Holly Fisher XR LSPINE W_OBLS AND [...] YOUSUF ORTIZ Date: 2022-05-04 08:47 Normal [facility] CBC AUTO DIFFon 03-05-2022 BASO # 0.1 103/ul Normal 0.0-0.1 [facility] Comment on above: Performed By: #### C BC ####[facility] [address] [place] [id number]. Holly Fisher Basophils/100 WBC (Bld) 1.0 % Normal 0.2-2.0 [facility] Comment on above: Performed By: #### C BC ####[facility] [address] [place], [place] [id number]. Holly Fisher EO # 0.2 103/ul Normal 0.0-0.7 [facility] Comment on above: Performed By: #### C BC ####[facility] [address] [place], [place] [address]Dr. Holly Fisher Eosinophils/100 WBC (Bld) 2.4 % Normal 0.9-7.0 [facility] Comment on above: Performed By: #### C BC ####[facility] [address] [place], [place] [address]Dr. Holly Fisher Erythrocyte distribution width (RBC) [Ratio] 14.4 % Normal 11.0-15.0 [facility] Comment on above: Performed By: #### C BC ####[facility] [address] [place], [place] [address]Dr. Holly Fisher Hematocrit (Bld) [Volume fraction] 41.1 % Normal 36.0-48.0 [facility] Comment on above: Performed By: #### C BC ####[facility] [address] [place], [place] [address]Dr. Holly Fisher Hemoglobin (Bld) [Mass/Vol] 13.4 g/dL Normal 12.0-16.0 [facility] Comment on above: Performed By: #### C BC ####[facility] [address] [place], [place] [address]Dr. Holly Fisher IG # 0.03 10e3/ul Normal 0.00-0.03 [facility] Comment on above: Performed By: #### C BC ####[facility] [address] [place], [place] [address]Dr. Holly Fisher IG % 0.5 % Normal 0.0-0.5 [facility] Comment on above: Performed By: #### C BC ####[facility] [address] [place] [id number]. Holly Fisher LYMPH # 1.5 103/ul Normal 1.2-3.8 [facility] Comment on above: Performed By: #### C BC ####[facility] [address] [place] [id number]. Holly Phillip Lymphocytes/100 WBC (Bld) 24.3 % Normal 20.5-60.0 [facility] Comment on above: Performed By: #### C BC ####[facility] [address] [place] [id number]. Lindaban Fisher MANUAL DIFF REQ NO Normal [facility] Comment on above: Performed By: #### C BC ####[facility] [address] [place] [id number]. Holly Phillip MCH (RBC) [Entitic mass] 30.3 pg Normal 26.7-34.0 [facility] Comment on above: Performed By: #### C BC ####[facility] [address] [place] [id number]. Holly Fisher MCHC (RBC) [Mass/Vol] 32.6 g/dL Normal 29.9-35.2 [facility] Comment on above: Performed By: #### C BC ####[facility] [address] [place] [id number]. Holly Fisher MCV (RBC) [Entitic vol] 93.0 fL Normal 81.0-99.0 [facility] Comment on above: Performed By: #### C BC ####[facility] [address] [place] [id number]. Holly Phillip MONO # 0.5 103/ul Normal 0.3-0.8 [facility] Comment on above: Performed By: #### C BC ####[facility] [address] [place] [id number]. Holly Phillip Monocytes/100 WBC (Bld) 7.3 % Normal 1.7-12.0 [facility] Comment on above: Performed By: #### C BC ####[facility] [address] [place], [place] [address]Rs. Lidnaban Fisher NEUT # 4.1 103/ul Normal 1.4-6.5 [facility] Comment on above: Performed By: #### C BC ####[facility] [address] [place], [place] [address]Mm. Holly Fisher Neutrophils/100 WBC (Bld) 64.5 % Normal 43.0-75.0 [facility] Comment on above: Performed By: #### C BC ####[facility] [address] [place] [phone]. Holly Fisher Platelet mean volume (Bld) [Entitic vol] 10.5 fL Normal 9.5-13.5 [facility] Comment on above: Performed By: #### C BC ####[facility] [address] [place] [id number]. Holly Fisher PLT 253 103/ul Normal 150-450 [facility] Comment on above: Performed By: #### C BC ####[facility] [address] [place] [id number]. Holly Fisher RBC 4.42 106/ul Normal 4.20-5.40 [facility] Comment on above: Performed By: #### C BC ####[facility] [address] [place] [id number]. Holly Fisher WBC 6.3 103/ul Normal 4.0-11.0 [facility] Comment on above: Performed By: #### C BC ####[facility] [address] [place] [id number] Fisher LIPID PROFILEon 03-05-2022 CHOL-HDL RATIO NORM SEE BELOW Normal [facility] Comment on above: Result Comment: 3.3 - 4.4 LOW RISK 4.4 - 7.1 AVERAGE RISK 7.1 - 11.0 MODERATE RISK >11.0 HIGH RISK Performed By: #### L IPID, CMP #### [facility] [address], [place] [address] Dr. Holly Fisher Cholesterol [Mass/Vol] 263 mg/dL Critically high <=200 [facility] Comment on above: Performed By: #### L IPID, CMP #### [facility] [address] [place] [address] [address] Holly Fisher Cholesterol in HDL [Mass/Vol] 63 mg/dL Critically high 40-60 [facility] Comment on above: Performed By: #### L IPID, CMP #### [facility] [address] [place] [address] [address] Holly Fisher Cholesterol in LDL [Mass/Vol] 160.2 mg/dL Normal [facility] Comment on above: Performed By: #### L IPID, CMP #### [facility] [address] [place] [address] Dr. Holly Fisher Cholesterol.total/ Cholesterol in HDL [Mass ratio] 4.2 {ratio} Normal [facility] Comment on above: Performed By: #### L IPID, CMP #### [facility] [address] [place] [address] Dr. Holly Fisher HDL NORMAL > or = 60 mg/dl - LO W CARDIOVASCULAR RISK <40 mg/dl - HIGH CARDIOVASCULAR RISK Normal [facility] Comment on above: Performed By: #### L IPID, CMP #### [facility] [address] [place] [address] Dr. Holly Fisher LDL CALC NORMAL SEE BELOW Normal [facility] Comment on above: Result Comment: <100 mg/dl OPTIMAL 100 - 129 mg/dl NEAR OR ABOVE OPTIMAL 130 - 159 mg/dl BORDERLINE HIGH 160 - 189 mg/dl HIGH >190 mg/dl VERY HIGH Performed By: #### L IPID, CMP #### [facility] [address] [place] [address] Dr. Holly Fisher Triglyceride [Mass/Vol] 199 mg/dL Critically high <=150 [facility] Comment on above: Performed By: #### L IPID, CMP #### [facility] [address] [place] [address] [address] Holly Fisher VLDL CALC 39.8 mg/dL Normal [facility] Comment on above: Performed By: #### L IPID, CMP #### [facility] [address] [place] [address] [address] Holly Fisher MG MAMM SCREEN 3D SHERRIE CADon 03-05-2022 MG MAMM SCREEN 3D SHERRIE CAD Patient: LETTY COFFEY Exam Date: 03/05/2022 : 1945 Gender:F Ordering : DR EMELY THOMAS M.D. Admission #: [id number] Family : Order #: [id number] CLICK HERE TO VIEW EXAM RADIOLOGY REPORT [...] No Treatments None Family Cancers None LOCATION: [facility] BREAST COMPOSITION: Scattered areas fibroglandular density. [...] Ortiz MD on 03/05/2022 at 09:55 Normal [facility] PROF 14(COMP METB)on 022 Albumin [Mass/Vol] 3.9 g/dL Normal 3.4-5.0 [facility] Comment on above: Performed By: #### L IPID, CMP #### [facility] [address] [place] [address] [address] Holly Fisher Albumin/Globulin [Mass ratio] 1.1 {ratio} Normal [facility] Comment on above: Performed By: #### L IPID, CMP #### [facility] [address] [place] [address] [address] Holly Fisher ALP [Catalytic activity/Vol] 54 U/L Normal 46-116 [facility] Comment on above: Performed By: #### L IPID, CMP #### [facility] [address] [place] [address] [address] Holly Fisher ALT [Catalytic activity/Vol] 22 U/L Normal 14-59 [facility] Comment on above: Performed By: #### L IPID, CMP #### [facility] [address] [place] [address] [address] Holly Fisher Anion gap [Moles/Vol] 12.5 mmol/L Normal [facility] Comment on above: Performed By: #### L IPID, CMP #### [facility] [address] [place] [address] [address] Holly Fisher AST [Catalytic activity/Vol] 14 U/L Critically low 15-37 [facility] Comment on above: Performed By: #### L IPID, CMP #### [facility] [address] [place] [address] Dr. Holly Fisher Bilirubin [Mass/Vol] 0.4 mg/dL Normal 0.2-1.0 [facility] Comment on above: Performed By: #### L IPID, CMP #### [facility] [address] [place] [address] Dr. Holly Fisher Calcium [Mass/Vol] 8.6 mg/dL Normal 8.5-10.1 [facility] Comment on above: Performed By: #### L IPID, CMP #### [facility] [address] [place] [address] Dr. Holly Fisher Chloride [Moles/Vol] 106 mmol/L Normal 98-107 [facility] Comment on above: Performed By: #### L IPID, CMP #### [facility] [address] [place] [address] [address] Holly Fisher CO2 [Moles/Vol] 26.8 mmol/L Normal 21.0-32.0 [facility] Comment on above: Performed By: #### L IPID, CMP #### [facility] [address] [place] [address] [address] Holly Fisher Creatinine [Mass/Vol] 0.60 mg/dL Normal 0.55-1.02 [facility] Comment on above: Performed By: #### L IPID, CMP #### [facility] [address] [place] [address] Dr. Holly Fisher EGFR-AF RWANDAN >60 Normal >=60 [facility] Comment on above: Performed By: #### L IPID, CMP #### [facility] [address] [place] [address] Dr. Holly Fisher EGFR-NON AF RWANDAN >60 Normal >=60 [facility] Comment on above: Performed By: #### L IPID, CMP #### [facility] [address] [place] [address] Dr. Holly Fisher Globulin (S) [Mass/Vol] 3.4 g/dL Normal [facility] Comment on above: Performed By: #### L IPID, CMP #### [facility] [address] [place] [address] Dr. Holly Fisher Glucose [Mass/Vol] 98 mg/dL Normal 74-106 [facility] Comment on above: Performed By: #### L IPID, CMP #### [facility] [address] [place] [address] Dr. Holly Fisher Potassium [Moles/Vol] 4.3 mmol/L Normal 3.5-5.1 [facility] Comment on above: Performed By: #### L IPID, CMP #### [facility] [address] [place] [address] Dr. Holly Fisher Protein [Mass/Vol] 7.3 g/dL Normal 6.4-8.2 [facility] Comment on above: Performed By: #### L IPID, CMP #### [facility] [address] [place] [address] Dr. Holly Fisher Sodium [Moles/Vol] 141 mmol/L Normal 136-145 [facility] Comment on above: Performed By: #### L IPID, CMP #### [facility] [address] [place] [address] Dr. Holly Fisher Urea nitrogen [Mass/Vol] 14.0 mg/dL Normal 7.0-18.0 [facility] Comment on above: Performed By: #### L IPID, CMP #### [facility] [address] [place] [address] [address] Holly Fisher Urea nitrogen/Creatinin e [Mass ratio] 23.3 mg/mg Normal [facility] Comment on above: Performed By: #### L IPID, CMP #### [facility] [address] [place] [id number] 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 Normal [facility] OPERATIVE REPORTon [facility] NAME[facility] LETTY COFFEY : 49[facility] REC NO: [id number] ROOM:ACCOUNT NO: [id number] ADMISSION DATE: 04/27/17PHYSICIAN: EMRE STAPLETONDATE OF PROCEDURE: [...] used to engage the membrane in a junba-lws-dhkj technique andthe membrane was elevated from the [...] theprocedure well without complications.EMRE DANIELBSD:04/27/2017 9:59:31 CD/[id number]#: [id number] Doc#: [id number] [facility] Vital Signs Date Time Vital Sign Value Performing Clinician Facility 06-30-2023 09:15-0400 Body height 158.75 cm Emeyl Thomas Other [facility] Other 06-30-2023 09:15-0400 Body mass index (BMI) [Ratio] 30.95 kg/m2 Emely Thomas Other [facility] Other 06-30-2023 09:15-0400 Body temperature 96.5 [degF] Emely Thomas Other [facility] Other 06-30-2023 09:15-0400 Body weight 78.02 kg Emely Thomas Other [facility] Other 06-30-2023 09:15-0400 Diastolic blood pressure 76 mm[Hg] Emely Thomas Other [facility] Other 06-30-2023 09:15-0400 Systolic blood pressure 156 mm[Hg] Emely Thomas Other [facility] Other 04-13-2023 15:00-0400 Body height 158.75 cm Emely Thomas Other [facility] Other 04-13-2023 15:00-0400 Body mass index (BMI) [Ratio] 31.49 kg/m2 Emely Thomas Other [facility] Other 04-13-2023 15:00-0400 Body weight 79.38 kg Emely Thomas Other [facility] Other 04-13-2023 15:00-0400 Diastolic blood pressure 78 mm[Hg] Emely Thomas Other [facility] Other 04-13-2023 15:00-0400 Systolic blood pressure 135 mm[Hg] Emely Thomas Other [facility] Other 03-18-2023 08:40-0400 Body height 158.75 cm Ej Thomas Other [facility] Other 03-18-2023 08:40-0400 Body mass index (BMI) [Ratio] 31.67 kg/m2 Ej Thomas Other [facility] Other 03-18-2023 08:40-0400 Body weight 79.83 kg Ej Thomas Other [facility] Other 03-18-2023 08:40-0400 Diastolic blood pressure 84 mm[Hg] Ej Thomas Other [facility] Other 03-18-2023 08:40-0400 Systolic blood pressure 134 mm[Hg] Ej Thomas Other [facility] Other 01-21-2023 11:00-0400 Body height 158.75 cm Emely Thomas Other [facility] Other 01-21-2023 11:00-0400 Body mass index (BMI) [Ratio] 32.21 kg/m2 Emely Thomas Other [facility] Other 01-21-2023 11:00-0400 Body weight 81.19 kg Emely Thomas Other [facility] Other 01-21-2023 11:00-0400 Diastolic blood pressure 82 mm[Hg] Emely Thomas Other [facility] Other 01-21-2023 11:00-0400 SaO2% (BldA) [Mass fraction] 97 % Emely Thomas Other [facility] Other 01-21-2023 11:00-0400 Systolic blood pressure 142 mm[Hg] Emely Thomas Other [facility] Other Encounters Encounter Date Encounter Type Care [...] 06-30-2023 End: 06-30-2023 ambulatory Emely Thomas Other [facility] Other Start: 06-30-2023 Office outpatient vi sit 15 minutes Emely Thomas [facility] Start: 05-18-2023 End: 05-18-2023 ambulatory Emely Thomas Other [facility] Other Start: 05-18-2023 Telephone encounter Emely Thomas [facility] Start: 05-13-2023 End: 05-14-2023 ambulatory [facility] Start: 05-13-2023 End: 05-13-2023 ambulatory [facility] Start: 04-16-2023 End: 04-17-2023 ambulatory [facility] Start: 04-13-2023 End: 04-13-2023 ambulatory Emely Thomas Other [facility] Other Start: 04-13-2023 Office outpatient vi sit 15 minutes Emely Thomas [facility] Start: 04-05-2023 End: 04-05-2023 ambulatory Ej Thomas Other [facility] Other Start: 04-05-2023 Telephone encounter Ej Thomas [facility] Start: 03-18-2023 End: 03-18-2023 ambulatory Ej Thomas Other [facility] Other Start: 03-18-2023 Office outpatient ne w 30 minutes Ej Thomas [facility] Start: 02-09-2023 End: 02-10-2023 ambulatory NARENDRANATH LAKSHMIPATHY . Facility:[facility] Start: 02-01-2023 ambulatory NARENDRANATH LAKSHMIPATHY . Facility:[facility] Start: 01-28-[address] EMELY THOMAS Facil ity:[facility] Start: 01-28-2023 End: 01-29-2023 ambulatory NARENDRANATH LAKSHMIPATHY . Facility:[facility] Start: 01-21-2023 End: 01-21-2023 ambulatory Emely Thomas Other [facility] Other Start: 01-21-2023 Office outpatient vi sit 15 minutes Emely Thoams [facility] Start: 01-12-2023 End: 01-12-2023 ambulatory AURAMUNAVINAY BUCKLEYMIPATHY . Facility:[facility] Start: 12-31-2022 End: 01-01-[address] EMELY THOMAS Facility:[facility] Start: 12-28-2022 End: 12-28-[address] EMELY THOMAS Facility:[facility] Start: 12-24-2022 End: 12-25-[address] EMELY THOMAS Facility:[facility] Start: 10-07-2022 End: 10-08-2022 ambulatory SHAWNA RUIZ . Facility:[facility] Start: 09-03-2022 Encounter for preprocedural laboratory examination DR YULI LEES . [facility] Start: 09-01-2022 End: 09-01-[address] YULI LEES . Facility:[facility] Start: 08-28-2022 End: 08-29-[address] EMELY THOMAS Facility:[facility] Start: 08-28-2022 End: 08-29-2022 Encounter for preprocedural laboratory examination DR EMELY THOMAS Facility:[facility] Start: 08-11-2022 End: 08-11-[address] YULI LEES . Facility:[facility] Start: 08-08-2022 Encounter for preprocedural cardiovascular examination SHAWNA RUIZ . [facility] Start: 08-07-2022 End: 08-08-[address] EMELY [...] End: 04-27-2017 Ambulatory EMRE STAPLETON [facility] Procedures Date Procedure Procedure Detail Performing [...] [address] [place] [address] Kriss Velez DO [address] [place] [address] [facility] Start: 07-25-2024 End: 07-25-2024 Clinical Support 07/25/2024 1:45 PM EDT Clinical Support [facility] NB [facility] [address] [place] [id number] Dusty Nassar DO [address] [place] [address] Arrived [facility] Comment on above: Arrived Start: 05-28-2024 Influenza vaccination Influenza Vacc ine (#1) [facility] Start: 02-26-2023 ambulatory Ambulatory Facility:H 1 Intravitreal Injection, Pharmacologic Agent - OD - Right Eye Intravitreal Injection, Pharmacologic Agent - OD - Right Eye Ophthalmology Routine 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 eye with active choroidal neovascularization (HCC) (CMS/HCC) Ordered: 07/25/2024 [facility] Work Phone: Comment on above: Ordered: 07/25/2024 Immunizations Immunization Date Immunization Notes Care Provider Fa cility 07-26-2023 influenza virus vacc ine, unspecified formulation Dusty Nassar DO Work Phone: [facility] Payers Date Payer Category Payer [facility] [id number] 2017 Medicare MEDICARE [id number] 2014 Unknown [id number] 1959 [employer] [facility] [id number] 2.16.840.1.723298.19 1959 Medicare [id number] 2.16.840.1.846659. 1959 Unknown [id number] 1947 Unknown [id number] 2.16.840.1.096234.3.579.2. 593 1947 Unknown [id number] 2.16.840.1.581984.3.579.2. 593 1947 Unknown [id number] 2.16.840.1.425828.3.579.2. 593 1947 Unknown [id number] 2.16.840.1.455654.3.579.2. 593 1947 Unknown [id number] 2.16.840.1.913844.3.579.2. 593 1947 Unknown [id number] 2.16.840.1.489323.3.579.2. 593 1947 Unknown [id number] 2.16.840.1.114826.3.579.2. 593 1947 Unknown [id number] 2.16.840.1.126839.3.579.2. 593 1947 Unknown [id number] 2.16.840.1.898408.3.579.2. 593 1947 Unknown [id number] 2.16.840.1.177217.3.579.2. 593 1947 Unknown [id number] 2.16.840.1.634459.3.579.2. 593 1947 Unknown [id number] 2.16.840.1.634641.3.579.2. 593 1947 Unknown [id number] 2.16.840.1.767239.3.579.2. 593 1947 Unknown [id number] 2.16.840.1.725278.3.579.2. 593 1947 Unknown [id number] 2.16.840.1.510794.3.579.2. 593 1947 Unknown [id number] 2.16.840.1.214228.3.579.2. 593 1947 Unknown [id number] 2.16.840.1.649673.3.579.2. 593 1947 Unknown [id number] 2.16.840.1.034417.3.579.2. 593 1947 Unknown [id number] 2.16.840.1.557415.3.579.2. 593 1947 Unknown [id number] 2.16.840.1.640735.3.579.2. 593 1947 Unknown [id number] 2.16.840.1.889603.3.579.2. 593 1947 Unknown [id number] 2.16.840.1.166245.3.579.2. 593 1947 Unknown [id number] 2.16.840.1.361068.3.579.2. 593 1947 Unknown [id number] 2.16.840.1.028810.3.579.2. 593 1947 Unknown [id number] 2.16.840.1.160718.3.579.2. 593 1947 Unknown [id number] 2.16.840.1.416501.3.579.2. 1259 1947 Unknown [id number] 2.16.840.1.443111.3.579.2. 1259 1947 Unknown [id number] 2.16.840.1.841357.3.579.2. 1259 1947 Unknown [id number] 2.16.840.1.388391.3.579.2. 1259 1947 Unknown [id number] 2.16.840.1.439020.3.579.2. 1259 1947 Unknown [id number] 2.16.840.1.157540.3.579.2. 1259 1947 Unknown [id number] 2.16.840.1.422202.3.579.2. 1259 1947 Unknown [id number] 2.16.840.1.414752.3.579.2. 1259 1947 Unknown [id number] 2.16.840.1.473463.3.579.2. 1259 1947 Unknown [id number] 2.16.840.1.318538.3.579.2. 1259 Social History Date Type Detail Facility Unknown if ever smoked [facility] Other Start: 05-30-2024 Sex Assigned At [facility] Other Start: 10-11-2023 Tobacco smoking status VAIS Never smoked tobacco [facility] Start: 10-11-2023 [...] 2 MG/0.05ML Route: Intravitreal, Site: Left Eye [facility]: [id number], Lot: [id number], Expiration date: 08/27/2025, Waste: 0 mL Post-op [...] increased pain, redness, decreased vision or concerns. [facility] 07-25-2024 Note Right Eye Quality was good. Scan locations included subfoveal. Progression has been stable. Findings include abnormal foveal contour, pigment epithelial detachment. Left Eye Quality was good. Scan locations included subfoveal. Progression has been stable. Findings include abnormal foveal contour. [facility] 10-29-2024 History of Presen t illness [...] 2 MG/0.05ML Route: Intravitreal, Site: Left Eye [facility]: [id number], Lot: [id number], Expiration date: 08/27/2025, Waste: 0 mL Post-op [...] vision or concerns. documented in this encounter [facility] 06-30-2023 Evaluation note Encounter Date Diagnosis Assessment Notes Jun, Acute non-recurrent maxillary sinusitis (ICD-10 - J01.00) Finish antibiotic, stay hydrated. Ok for NSAIDs for head pressure. Call if no improvement. [facility] Other 08-17-2023 NoteSUBJECTIVE: Chief complaint: Back and right leg pain. History of present illness: Consultation referred by pain management, Dr. Layton of [facility]. Patient reports chronic low back pain for [...] found for any pre (more content not included)...[facility]08-17-2023 NoteSubjective: HPI: Letty Coffey is a [...] and assess x-rays of back. Malina Mckeon MS3[facility]07-18-2023 Evaluation note* Encounter Date Diagnosis Assessment [...] is busy with other appts right now. [facility] Other 06-22-2023 Evaluation note* Encounter Date Diagnosis [...] long as possible before considering surgical intervention. [facility] Other 05-04-2023 NoteCONSULTATION CONSULTATION DATE: 01/28/2023 TO: [...] our patients to inform us about any bjsq-wth-swlfpoq medications or herbal remedies/nutritional supplements/alternative remedies. 2. [...] treatment options with their primary care provider.[facility]Edizuvvb47-72-7399 Evaluation note * Encounter Date Diagnosis Assessment Notes Treatment Notes Treatment Clinical Notes Dec, Essential (primary) hypertension (ICD-10 - I10) new problem. rx handwritten. f/u 6 weeks. Dec, Other chronic pain (ICD-10 - G89.29) Dec, Pain in left shoulder (ICD-10 - M25.512) PT order given to pt. [facility] Other 04-06-2023 NoteCONSULTATION CONSULTATION DATE: 12/31/2022 TO: [...] our patients to inform us about any yetf-abk-vtizdhs medications or herbal remedies/nutritional supplements/alternative remedies. 2. [...] treatment options with their primary care provider.[facility] DaytonBsxudity18-34-9190 Note CONSULTATION PROCEDURE DATE: 10/07/2022 PREOPERATIVE DIAGNOSIS: [...] fan-like pattern. Patient tolerated the procedure well.[id number] NoteCONSULTATION CONSULTATION DATE: 10/07/2022 HISTORY OF PRESENT [...] sitting does decrease her pain. Medications include lkpq-ycj-zmdqcny Tylenol and the use of Salonpas patches. [...] otherwise indicated. Patient agrees with this plan.[facility] DaytonVslljtky07-29-2848 NoteCONSULTATION CONSULTATION DATE: 07/30/2022 This is a [...] be followed up at the office thereafter.[facility] DaytonKuuuaglc60-33-2446 NoteCONSULTATION CONSULTATION DATE: 06/25/2022 HISTORY OF PRESENT [...] patient is in agreement with this plan.[facility] DaytonIlvknxdf12-48-3415 NoteCONSULTATION CONSULTATION DATE: 05/19/2022 CHIEF COMPLAINT: Right [...] like to proceed. CC: Emely Thomas M.D.[facility] [id number] NoteCONSULTATION PROCEDURE DATE: 04/28/2022 PREOPERATIVE DIAGNOSIS: Right [...] Will be followed up in the office.[facility] DaytonByigcwls43-52-3427 NoteCONSULTATION CONSULTATION DATE: 04/28/2022 CHIEF COMPLAINT: Right [...] like to proceed. CC: Emely Thomas M.D.[facility] DaytonRxdovioh43-63-0231 NotePROCEDURE: XR HIP RT 2 3V W PELVIS COMPARISON: None. HISTORY: Arthropathy FINDINGS: BONES:No acute fracture or dislocation. Mild osteoarthropathy with marginal osteophyte formation. 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 No visible soft tissue swelling. EFFUSION:None visible. OTHER: Negative. 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 Electronically authenticated by: YOUSUF ORTIZ Date: 2022-03-05 10:09[facility] DaytonEvaluation noteNo InformationNorth [employer] Other evaluation note* Diagnosis Exudative age-related macular [...] History COLONOSCOPY Hospitalization History SEE SURGICAL HX [facility] Other History general Narrative - Reported* Type [...] growth surgery Hospitalization History SEE SURGICAL HX [facility] Other Summary Purpose Family History No Family History Records FoundNo Family History Records FoundNo Family History Records FoundNo Family History Records Found Advance Directives No Advanced Directives Records FoundNo Advanced Directives Records FoundNo Advanced Directives Records FoundNo Advanced Directives Records Found Additional Source Comments INFORMATION SOURCE (unrecogn ized section and content) DATE CREATED AUTHOR 03/23/2018 [facility] DATE CREATED AUTHOR AUTHOR'S ORGANIZ ATION 02/10/2023 [facility] DATE CREATED AUTHOR AUTHOR'S ORGANIZ ATION 05/19/2023 [facility] DATE CREATED AUTHOR AUTHOR'S ORGANIZ ATION 07/27/2024 [facility] EPIC REASON FOR VISIT (unrecogniz ed section and content) Reason Comments Macular Degeneration Retinal Injection Care Teams (unrecognized sec tion and content) [employer] Relationship Specialty Start Date End Date Wiley Price MD [address] [place] [address] PCP - General Family Medicine 12/10/23 [place] [address] [place] [id number] Referring Physician Family Medicine 10/15/23 [employer] Relationship Specialty Start Date End Date Wiley Price MD [address] [place] [address] PCP - General Family Medicine 12/10/23 Kimber Price MD [address] [place] [address] Referring Physician Family Medicine 10/15/23 FOR RECORDS [...] BE BASED ON THE PRIMARY CLINICAL RECORDS. [facility]. provides no warranty or guarantee of the accuracy or completeness of information in this document.
[2024-08-21 11:03] VITALS: BP 156/83; PULSE 90; TEMP 36; O2SAT 99
[2024-08-21 11:35] VITALS: BP 153/70; BP 156/70; PULSE 91; O2SAT 92; O2SAT 96
--- NOTE | 2024-08-21 11:37 | W.PM.PROCNOT ---
Date of procedure: 08/21/24 Pre-op diagnosis: Pain due to left shoulder osteoarthritis Post-op diagnosis: same as pre-op Procedure: Procedure: Left suprascapular and axillary nerve block Medications: Bupivacaine 0.25% 2cc, kenalog 40mg The patient was seen and examined in the preoperative holding area. Informed consent was obtained and placed on the chart.? The patient was brought to the medical procedure unit and placed in the prone position. A timeout was completed verifying correct patient, procedure site, positioning, plan, and special equipment.? Using aseptic technique, under direct fluoroscopic visualization, a 25-gauge 3-1/2 inch spinal needle was advanced to the superior portion of the left posterior osseous rim of the glenoid fossa, lateral and superior to the spinal glenoid notch.? 0.5 cc of the above solution was injected.? The needle was then redirected 3 mm inferiorly and another 0.5 cc of the above medication was injected.? This needle was then removed.? Using aseptic technique, under direct fluoroscopic visualization, another 25-gauge 3-1/2 inch spinal needle was advanced toward the most inferior and lateral border of the greater tubercle.? 0.5 cc of the above medication was administered.? The needle was then redirected 3 mm inferiorly.? 0.5 cc was administered in this region.? This needle was removed. ? The patient was taken to the postprocedural recovery area and monitored for an appropriate length of time before being found suitable for discharge in the accompaniment of a responsible adult. Anesthesia: Local Surgeon: Gianna Kelley Pathology: none sent Condition: stable Disposition: no change
[2024-08-21] MEDS: IOHEXOL 240 MG/ML - 10 ML VIAL 12 MG INJ (11:38)
[2024-08-21] MEDS: LIDOCAINE HCL 2% 400 MG/20 ML MDV INJ (11:39)
[2024-08-21] MEDS: TRIAMCINOLONE ACETONIDE 40 MG/ML VIAL INJ (11:39)
[2024-08-21] MEDS: BUPIVACAINE HCL 0.25% PF 25 MG/10 ML VIAL INJ (11:39)
== END 2024-08-21 11:42 | disposition home or self-care (01) ==
PROVIDERS: PCP Nurse Practitioner Family; Visit Provider Anesthesiology
DX: M19.012 Primary osteoarthritis, left shoulder (principal)
CPT/HCPCS: 64417; 64418; J0665; J3301; Q9966

== ENCOUNTER 2024-08-22 08:44 | Outpatient (OUT) | payer MEDICARE, BC, SELFPAY ==
--- NOTE | 2024-08-22 08:46 | MR_ITS ---
[facility] [place] [id number] Patient Name: GAYATHRI LOPEZ MRN: [id number] date: 1945 Sex: F Assigned Patient Location: MRI Current Patient Location: MRI Accession/Order Number: [id number] Exam Date: 08/22/2024 09:00 Report Date: 08/23/2024 11:39 At the request of: MORRIS LEPE Procedure: MR shoulder LT wo con EXAMINATION: MR shoulder LT wo con HISTORY: Left Shoulder Impingement Syndrome COMPARISON: No relevant comparison available. TECHNIQUE: A variety of imaging planes and parameters were utilized for visualization of suspected pathology. Imaging was performed without or with contrast as indicated by examination type. FINDINGS: ROTATOR CUFF REGION CUFF TENDONS: Tear of the supraspinatus tendon and retraction approximately 1.7 cm. Strain of the subscapularis tendon, but intact. CUFF MUSCLES: Mild edema within the supraspinatus muscle at the musculotendinous junction. DELTOID: Normal. No significant atrophy or tear. LONG BICEPS TENDON: Notable thinning, but suspected to be intact. LABRUM/BICEPS ANCHOR SUPERIOR: Tear of the superior labrum. ANTERIOR/INFERIOR: No visible tear or attrition. POSTERIOR: No posterior labrum abnormality. CAPSULE No visible capsular laxity or thickening. AC JOINT REGION AC JOINT: Moderate-marked degenerative changes, predominantly projecting cephalad rather than involving the undersurface. AC LIGAMENTS: Normal acromioclavicular ligament. CC LIGAMENTS: Normal coracoclavicular ligaments. ACROMION: Normal horizontal (Type I) configuration. SUBACROMIAL BURSA: Small amount of fluid. HYALINE CARTILAGE: Moderate-marked thinning. No appreciable focal defect. OTHER BONES: No fracture, bone lesion, or articular surface irregularity. OTHER OBSERVATIONS: Negative. No other significant findings or glenohumeral effusion. MR/MR shoulder LT wo con IMPRESSION: 1. Tear and retraction of the supraspinous tendon. 2. Strain of the subscapularis tendon. 3. Long head biceps tendon is notably thickened, but suspected to be intact. It is not well seen over the humeral head. 4. Tear of the superior labrum. 5. Degenerative changes of the acromioclavicular joint. Electronically authenticated by: OFE LOPEZ Date: 08/23/2024 11:39
== END 2024-08-22 08:45 | disposition home or self-care (01) ==
LOC: MRI 08:44
PROVIDERS: PCP Nurse Practitioner Family; Visit Provider Anesthesiology Pain Medicine
DX: M75.42 Impingement syndrome of left shoulder (principal); S46.812A Strain of other muscles, fascia and tendons at shoulder and upper arm level, left arm, initial encounter; M75.102 Unspecified rotator cuff tear or rupture of left shoulder, not specified as traumatic
CPT/HCPCS: 73221

== ENCOUNTER 2024-08-31 09:37 | Outpatient (OUT) | payer MEDICARE, BC, SELFPAY ==
--- OUTSIDE RECORDS SUMMARY | 2024-08-31 09:57 | XMS_ITS | CCD ---
Author Organization [facility] Care Team Providers Care Supervisor Coremaker Name Role Phone EMRE STAPLETON Unavailable Unavailable EMRE STAPLETON Unavailable Unavailable KAT NOBLE Unavailable Unavailable Emely [...] MARTHA, DR EMELY Becker Primary Care Unavailable ANGEL, DR YOUSUF Ferguson Consulting Unavailable MARTHA, DR EMELY Becker Admitting Unavailable MARTHA, DR EMELY Becker Primary Care Unavailable THOMAS, DR EMELY Becker Attending Unavailable MARTHA, DR EMELY Becker Consulting Unavailable MARTHA, DR EMELY Becker Primary Care Unavailable YOANA ., DR YULI Nguyen Attending Unavailable LEES ., DR YULI Nguyen Consulting Unavailable LEES ., DR YULI Nguyen Admitting Unavailable THOMAS, DR EMELY Becker Primary Care Unavailable LAKSHMIPATHY ., NARENDRANATH Admitting Johanny vailable LAKSHMIPATHY ., NARENDRANATH Attending Johanny vailable RUIZ ., SHAWNA Consulting Unavailable LAKSHMIPATHY ., NARENDJAKEATH Consulting Johanny vailable LEES ., DR YULI [...] LEES ., DR YULI Nguyen Attending Unavailable ARREY, DR YOUSUF Ferguson Consulting Unavailable THOMAS, DR [...] vailable LAKSHMIPATHY ., NARENDRANATH Attending Johanny vailable MARTHA, DR EMELY Becker [...] Unavailable Wiley Price MD Primary Care Provider [phone] DUSTY NASSAR Attending Unavailable DUSTY NASSAR Attending Unavailable DUSTY NASSAR Attending Unavailable DUSTY NASSAR Attending Unavailable DUSTY NASSAR Attending Unavailable DUSTY NASSAR Attending Unavailable DUSTY NASSAR Attending Unavailable KRISS VELEZ Attending Unavailable KRISS VELEZ Referring Unavailable DUSTY NASSAR Attending Unavailable DUSTY NASSAR Attending Unavailable Gianna Kelley MD Attending Unavailable Allergies Allergy Classification Reported Allergen(s) Allergy Type Date of Onset Reaction(s) Facility (1 source) ALLERGIES NOT ON FILE; Translations: [ALLERGIES NOT ON FILE] Propensity to adverse reactions (disorder) [facility] Repository Medications Current Medications Medication Drug Class(es) Dates Sig (Normalized) Sig (Original) amoxicillin 875 mg / clavulanate 125 mg oral tablet (1 source) Penicillin-class Antibacterial Start: 10-04-2023 take 1 tablet by mouth every twelve [...] mg oral tablet (2 sources) Glucosamine-Eugene droitin-MSM (Bbsgll-Whiyq-DFO-Double Str) 500-400-167 MG tablet every 12 (twelve) hours Active 1 ml denosumab 60 mg/ml prefilled syringe (8 sources) RANK Ligand Inhibitor denosumab (Prolia) 6 0 MG/ML solution prefilled syringe as directed Subcutaneous Active Fish Oils (5 sources) take 1 capsule by mouth once daily Fish Oil 1000 MG 1 capsule Orally Once a day Active Wuwdlv-Ycsh-VIS-Ca-C-CtCl -SeCu - (5 sources) Yjspnb-Iegl-DIZ- Rp-V-ZkCr-SeCu - as directed Orally Active losartan potassium [...] each day at the same time Active Thornton-3 Fatty Acids (Fish Oil) 1200 MG capsule delayed-release (2 sources) take 1 capsule by mouth every twelve hours Thornton-3 Fatty Acids (Fish Oil) 1200 MG capsule [...] unspecified] Chronic Other aftercare (3 sources) 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; Translations: [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] Onset: 03-12-2022 Episodic Other bone disease and musculoskeletal deformities (5 sources) Osteopenia; Translations: [Other specified disorders of bone density and structure, unspecified site] Episodic Other bone disease and musculoskeletal deformities (6 sources) Other specified disorders of bone density and structure, unspecified site; Translations: [[facility] D/O BONE DEN STRUCT UNS [...] Facility Left eye Ophthalmologic chata tmenton 07-25-2024 [facility] Radiology Study observation (narrative) [facility] Optical coherence tomography study reporton 07-25-2024 [facility] Radiology Study observation (narrative) [facility] 36on 05-17-2023 36 Spoke with [...] her to someone who does SCS. Normal [facility] 36on 05-14-2023 36 Left message for an [...] on Wednesday to follow-up regarding this. Normal [facility] Telephoneon 05-14-2023 Telephone [phone] Chrisstevo ice 1945 F Date Provider Department Center 05/14/2023 [id number], [facility] SURG Second Fl Family History Problem Relation Age of Onset Other Mother Stomach cancer Father Family Status - Relation Status Age at Mother Father Normal [facility] Consulton 05-13-2023 Consult [id number] Chris ice 1945 F Date Provider Department Center 05/13/2023 [id number], [facility] SURG Second Fl Family History Problem Relation Age of Onset Other Mother Stomach cancer Father Family Status - Relation Status Age at Mother Father Level of Service:22221 [place] OFFICE/OUTPATIENT NEW MODERATE MDM 45-59 MINUTES Reason for Visit and Comments: Consult [484] - Pt is here for a CO visit for Spinal Stenosis. Normal [facility] 36on 04-16-2023 36 LVM for pt to call jose shanks to schedule with or Dr. Lopez for Lunbar Stenosis. Imaging requested from [place]. Normal [facility] MRI LSPINE WO CONon 02-11-20 23 MRI [...] OFE COFFEY Date: 2023-02-10 07:16 Normal [facility] CALCIUMon 12-24-2022 Calcium [Mass/Vol] 9.7 mg/dL Normal 8.5-10.1 [facility] Comment on above: Performed By: #### C Dora CREA ####[facility] [address] [place] [address]Dr. Holly Fisher CREATININEon 12-24-2022 Creatinine [Mass/Vol] 0.62 mg/dL Normal 0.55-1.02 [facility] Comment on above: Performed By: #### C Dora CREA ####[facility] [address] [place] [address]Dr. Lindaban Fisher EGFR-AF MACANESE >60 Normal >=60 [facility] Comment on above: Performed By: #### C Dora CREA ####[facility] [address] [place] [address]Dr. Holly [facility] EGFR-NON AF MACANESE >60 Normal >=60 [facility] Comment on above: Performed By: #### C Dora CREA ####[facility] [address] [place], [place] [address]Dr. Holly Fisher [facility]on SARS-CoV-2 (COVID-19) RNA FRED+probe Ql (Unsp spec) Not detected Normal NOT DETECTED [facility] Comment on above: Result Comment: This test is not yet approved or cleared by the [place] FDA. When there are no FDA-approved or cleared tests available, and other criteria are met, FDA can make tests available under an emergency access mechanism called an Emergency Use Authorization (EUA). The EUA for this test is supported by the Logistics Account Manager of Health and Human Service's (HHS's) declaration [...] with SARS-CoV-2. Performed By: #### C VDTB ####[facility] [address] [place], [place] [address]Sj. Holly Phillip Covid-19 PCR ([facility])on 07-28 SARS-CoV-2 (COVID-19) RNA FRED+probe Ql (Unsp spec) Not detected Normal NOT DETECTED [facility] Comment on above: Result Comment: This test is not yet approved or cleared by the [place] FDA. When there are no FDA-approved or cleared tests available, and other criteria are met, FDA can make tests available under an emergency access mechanism called an Emergency Use Authorization (EUA). The EUA for this test is supported by the [place] of Health and Human Service's (HHS's) declaration [...] with SARS-CoV-2. Performed By: #### C VDTBH #### [facility] [address] [address] [address] Holly Fisher CALCIUMon 06-12-2022 Calcium [Mass/Vol] 9.0 mg/dL Normal 8.5-10.1 [facility] Comment on above: Performed By: #### C JUAN PABLO, [place] ####[facility] [address] [place], [place] [address]IvDr. Holly Fisher CREATININEon 06-12-2022 Creatinine [Mass/Vol] 0.65 mg/dL Normal 0.55-1.02 [facility] Comment on above: Performed By: #### Jose ALME[place], [place] #### [facility] [address] [address] [address] Holly Fisher EGFR-AF MACANESE >60 Normal >=60 [facility] Comment on above: Performed By: #### Jose ALMEIDA [place] #### [facility] [address] [address] [address] Holly Fisher EGFR-NON AF MACANESE >60 Normal >=60 [facility] Comment on above: Performed By: #### Jose [place], [place] #### [facility] [address] [address] [address] Holly Fisher XR LSPINE W_OBLS AND [...] YOUSUF ORTIZ Date: 2022-05-04 08:47 Normal [facility] CBC AUTO DIFFon 03-05-2022 BASO # 0.1 103/ul Normal 0.0-0.1 [facility] Comment on above: Performed By: #### C BC ####[facility] [address] [place] [address]Dr. Holly Fisher Basophils/100 WBC (Bld) 1.0 % Normal 0.2-2.0 [facility] Comment on above: Performed By: #### C BC ####[facility] [address] [place], [place] [address]Dr. Holly Phillip EO # 0.2 103/ul Normal 0.0-0.7 [facility] Comment on above: Performed By: #### C BC ####[facility] [address] [place], [place] [address]Dr. Holly Phillip Eosinophils/100 WBC (Bld) 2.4 % Normal 0.9-7.0 [facility] Comment on above: Performed By: #### C BC ####[facility] [address] [place], [place] [address]Dr. Holly Fisher Erythrocyte distribution width (RBC) [Ratio] 14.4 % Normal 11.0-15.0 [facility] Comment on above: Performed By: #### C BC ####[facility] [address] [place], [place] [address]Dr. Holly Fisher Hematocrit (Bld) [Volume fraction] 41.1 % Normal 36.0-48.0 [facility] Comment on above: Performed By: #### C BC ####[facility] [address] [place], [place] [address]Dr. Holly Fisher Hemoglobin (Bld) [Mass/Vol] 13.4 g/dL Normal 12.0-16.0 [facility] Comment on above: Performed By: #### C BC ####[facility] [address] [place], [place] [address]Dr. Holly Phillip IG # 0.03 10e3/ul Normal 0.00-0.03 [facility] Comment on above: Performed By: #### C BC ####[facility] [address] [place], [place] [address]Dr. Holly Fisher IG % 0.5 % Normal 0.0-0.5 [facility] Comment on above: Performed By: #### C BC ####[facility] [address] [place] [address]Dr. Holly Phillip LYMPH # 1.5 103/ul Normal 1.2-3.8 [facility] Comment on above: Performed By: #### C BC ####[facility] [address] [place] [address]Dr. Holly Fisher Lymphocytes/100 WBC (Bld) 24.3 % Normal 20.5-60.0 [facility] Comment on above: Performed By: #### C BC ####[facility] [address] [place] [address]DrHafsa Fisher MANUAL DIFF REQ NO Normal [facility] Comment on above: Performed By: #### C BC ####[facility] [address] [place], [place] [address]Dr. Holly Fisher MCH (RBC) [Entitic mass] 30.3 pg Normal 26.7-34.0 [facility] Comment on above: Performed By: #### C BC ####[facility] [address] [place], [place] [address]Dr. Lindaban Fisher MCHC (RBC) [Mass/Vol] 32.6 g/dL Normal 29.9-35.2 [facility] Comment on above: Performed By: #### C BC ####[facility] [address] [place] [address]Dr. Holly Fisher MCV (RBC) [Entitic vol] 93.0 fL Normal 81.0-99.0 [facility] Comment on above: Performed By: #### C BC ####[facility] [address] [place], [place] [address]DrHafsa Fisher MONO # 0.5 103/ul Normal 0.3-0.8 [facility] Comment on above: Performed By: #### C BC ####[facility] [address] [place] [id number]. Holly Fisher Monocytes/100 WBC (Bld) 7.3 % Normal 1.7-12.0 [facility] Comment on above: Performed By: #### C BC ####[facility] [address] [place] [id number]. Holly Fisher NEUT # 4.1 103/ul Normal 1.4-6.5 [facility] Comment on above: Performed By: #### C BC ####[facility] [address] [place] [id number]. Holly Fisher Neutrophils/100 WBC (Bld) 64.5 % Normal 43.0-75.0 [facility] Comment on above: Performed By: #### C BC ####[facility] [address] [place] [id number]. Holly Fisher Platelet mean volume (Bld) [Entitic vol] 10.5 fL Normal 9.5-13.5 [facility] Comment on above: Performed By: #### C BC ####[facility] [address] [place] [id number]. Holly Fisher PLT 253 103/ul Normal 150-450 [facility] Comment on above: Performed By: #### C BC ####[facility] [address] [place] [id number]. Holly Fisher RBC 4.42 106/ul Normal 4.20-5.40 [facility] Comment on above: Performed By: #### C BC ####[facility] [address] [place] [id number]. Holly Fisher WBC 6.3 103/ul Normal 4.0-11.0 [facility] Comment on above: Performed By: #### C BC ####[facility] [address] [place] [id number]. Holly Fisher LIPID PROFILEon 03-05-2022 CHOL-HDL RATIO NORM SEE BELOW Normal [facility] Comment on above: Result Comment: 3.3 - 4.4 LOW RISK 4.4 - 7.1 AVERAGE RISK 7.1 - 11.0 MODERATE RISK >11.0 HIGH RISK Performed By: #### L IPID, CMP #### [facility] [address] [address] [address] Holly Fisher Cholesterol [Mass/Vol] 263 mg/dL Critically high <=200 [facility] Comment on above: Performed By: #### L IPID, CMP #### [facility] [address] [address] [address] Holly Fisher Cholesterol in HDL [Mass/Vol] 63 mg/dL Critically high 40-60 [facility] Comment on above: Performed By: #### L IPID, CMP #### [facility] [address] [address] [address] Holly Fisher Cholesterol in LDL [Mass/Vol] 160.2 mg/dL Normal [facility] Comment on above: Performed By: #### L IPID, CMP #### [facility] [address] [address] [address] Holly Fisher Cholesterol.total/ Cholesterol in HDL [Mass ratio] 4.2 {ratio} Normal [facility] Comment on above: Performed By: #### L IPID, CMP #### [facility] [address] [address] [address] Holly Fisher HDL NORMAL > or = 60 mg/dl - LO W CARDIOVASCULAR RISK <40 mg/dl - HIGH CARDIOVASCULAR RISK Normal [facility] Comment on above: Performed By: #### L IPID, CMP #### [facility] [address] [address] [address] Holly Fisher LDL CALC NORMAL SEE BELOW Normal [facility] Comment on above: Result Comment: <100 mg/dl OPTIMAL 100 - 129 mg/dl NEAR OR ABOVE OPTIMAL 130 - 159 mg/dl BORDERLINE HIGH 160 - 189 mg/dl HIGH >190 mg/dl VERY HIGH Performed By: #### L IPID, CMP #### [facility] [address] [address] [address] Holly Fisher Triglyceride [Mass/Vol] 199 mg/dL Critically high <=150 [facility] Comment on above: Performed By: #### L IPID, CMP #### [facility] [address] [address] [address] Holly Fisher VLDL CALC 39.8 mg/dL Normal [facility] Comment on above: Performed By: #### L IPID, CMP #### [facility] [address] [address] [address] Holly Fisher MG MAMM SCREEN 3D SHERRIE CADon 03-05-2022 MG MAMM SCREEN 3D SHERRIE CAD Patient: LETTY COFFEY Exam Date: 03/05/2022 : 1945 Gender:F Ordering : DR EMELY THOMAS M.D. Admission #: [id number] Family : Order #: [id number] CLICK HERE TO VIEW EXAM RADIOLOGY REPORT [...] Treatments None Family Cancers None LOCATION: [facility] BREAST COMPOSITION: Scattered areas fibroglandular density. [...] on 03/05/2022 at 09:55 Normal [facility] PROF 14(COMP METB)on 022 Albumin [Mass/Vol] 3.9 g/dL Normal 3.4-5.0 [facility] Comment on above: Performed By: #### L DREAD CMP #### [facility] [address] [address] [address] Holly Fisher Albumin/Globulin [Mass ratio] 1.1 {ratio} Normal [facility] Comment on above: Performed By: #### L DREAD CMP #### [facility] [address] [address] [address] Holly Fisher ALP [Catalytic activity/Vol] 54 U/L Normal 46-116 [facility] Comment on above: Performed By: #### L IPID, CMP #### [facility] [address] [address] [address] Holly Fisher ALT [Catalytic activity/Vol] 22 U/L Normal 14-59 [facility] Comment on above: Performed By: #### L IPID, CMP #### [facility] [address] [address] [address] Holly Fisher Anion gap [Moles/Vol] 12.5 mmol/L Normal [facility] Comment on above: Performed By: #### L IPID, CMP #### [facility] [address] [address] [address] Holly Fisher AST [Catalytic activity/Vol] 14 U/L Critically low 15-37 [facility] Comment on above: Performed By: #### L IPID, CMP #### [facility] [address] [place] [address] Dr. Holly Fisher Bilirubin [Mass/Vol] 0.4 mg/dL Normal 0.2-1.0 [facility] Comment on above: Performed By: #### L IPID, CMP #### [facility] [address] [place] [address] Dr. Holly Fisher Calcium [Mass/Vol] 8.6 mg/dL Normal 8.5-10.1 [facility] Comment on above: Performed By: #### L IPID, CMP #### [facility] [address] [place] [address] Dr. Holly Fisher Chloride [Moles/Vol] 106 mmol/L Normal 98-107 [facility] Comment on above: Performed By: #### L IPID, CMP #### [facility] [address] [address] [address] Holly Fisher CO2 [Moles/Vol] 26.8 mmol/L Normal 21.0-32.0 [facility] Comment on above: Performed By: #### L IPID, CMP #### [facility] [address] [address] [address] Holly Fisher Creatinine [Mass/Vol] 0.60 mg/dL Normal 0.55-1.02 [facility] Comment on above: Performed By: #### L IPID, CMP #### [facility] [address] [address] [address] Holly Fisher EGFR-AF MACANESE >60 Normal >=60 [facility] Comment on above: Performed By: #### L IPID, CMP #### [facility] [address] [address] [address] Holly Fisher EGFR-NON AF MACANESE >60 Normal >=60 [facility] Comment on above: Performed By: #### L IPID, CMP #### [facility] [address] [address] [address] Holly Fisher Globulin (S) [Mass/Vol] 3.4 g/dL Normal [facility] Comment on above: Performed By: #### L IPID, CMP #### [facility] [address] [address] [address] Holly Fisher Glucose [Mass/Vol] 98 mg/dL Normal 74-106 [facility] Comment on above: Performed By: #### L IPID, CMP #### [facility] [address] [address] [address] Holly Fisher Potassium [Moles/Vol] 4.3 mmol/L Normal 3.5-5.1 [facility] Comment on above: Performed By: #### L IPID, CMP #### [facility] [address] [place] [address] Dr. Holly Fisher Protein [Mass/Vol] 7.3 g/dL Normal 6.4-8.2 [facility] Comment on above: Performed By: #### L IPID, CMP #### [facility] [address] [address] [address] Holly Fisher Sodium [Moles/Vol] 141 mmol/L Normal 136-145 [facility] Comment on above: Performed By: #### L IPID, CMP #### [facility] [address] [address] [address] Holly Fisher Urea nitrogen [Mass/Vol] 14.0 mg/dL Normal 7.0-18.0 [facility] Comment on above: Performed By: #### L IPID, CMP #### [facility] [address] [address] [address] Holly Fisher Urea nitrogen/Creatinin e [Mass ratio] 23.3 mg/mg Normal [facility] Comment on above: Performed By: #### L IPID, CMP #### [facility] [address] [address] [address] 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 Normal [facility] OPERATIVE REPORTon 7 [facility] NAME[facility] LETTY COFFEY : 49[facility] REC NO: [id number] ROOM:ACCOUNT NO: [id number] ADMISSION DATE: 04/27/17PHYSICIAN: EMRE STAPLETONDATE OF PROCEDURE: [...] used to engage the membrane in a ajcnm-ang-xtlo technique andthe membrane was elevated from the [...] condition, having tolerated theprocedure well without complications.EMRE STAPLETOND:04/27/2017 9:59:31 CD/[id number]_TJob#: [id number] Doc#: [id number] [facility] Vital Signs Date Time Vital Sign Value Performing Clinician Facility 06-30-2023 09:15-0400 Body height 158.75 cm Emely Thomas Other [facility] Other 06-30-2023 09:15-0400 Body mass index (BMI) [Ratio] 30.95 kg/m2 Emely Thomas Other [facility] Other 06-30-2023 09:15-0400 Body temperature 96.5 [degF] Emely Thomas Other [facility] Other 06-30-2023 09:15-0400 Body weight 78.02 kg Emely Thomas Other [facility] Other 06-30-2023 09:15-0400 Diastolic blood pressure 76 mm[Hg] Emely Thomas Other [facility] Other 06-30-2023 09:15-0400 Systolic blood pressure 156 mm[Hg] Emely Thomas Other [facility] Other 04-13-2023 15:00-0400 Body height 158.75 cm Emely Thomas Other [facility] Other 04-13-2023 15:00-0400 Body mass index (BMI) [Ratio] 31.49 kg/m2 Emely Thomas Other [facility] Other 04-13-2023 15:00-0400 Body weight 79.38 kg Emely Thomas Other [facility] Other 04-13-2023 15:00-0400 Diastolic blood pressure 78 mm[Hg] Emely Thomas Other [facility] Other 04-13-2023 15:00-0400 Systolic blood pressure 135 mm[Hg] Emely Thomas Other [facility] Other 03-18-2023 08:40-0400 Body height 158.75 cm Ej Thomas Other [facility] Other 03-18-2023 08:40-0400 Body mass index (BMI) [Ratio] 31.67 kg/m2 Ej Thomas Other [facility] Other 03-18-2023 08:40-0400 Body weight 79.83 kg Ej Thomas Other [facility] Other 03-18-2023 08:40-0400 Diastolic blood pressure 84 mm[Hg] Ej Thomas Other [facility] Other 03-18-2023 08:40-0400 Systolic blood pressure 134 mm[Hg] Ej Thomas Other [facility] Other 01-21-2023 11:00-0400 Body height 158.75 cm Emely Thomas Other [facility] Other 01-21-2023 11:00-0400 Body mass index (BMI) [Ratio] 32.21 kg/m2 Emely Thomas Other [facility] Other 01-21-2023 11:00-0400 Body weight 81.19 kg Emely Thomas Other [facility] Other 01-21-2023 11:00-0400 Diastolic blood pressure 82 mm[Hg] Emely Thomas Other [facility] Other 01-21-2023 11:00-0400 SaO2% (BldA) [Mass fraction] 97 % Emely Thomas Other [facility] Other 01-21-2023 11:00-0400 Systolic blood pressure 142 mm[Hg] Emely Thomas Other [facility] Other Encounters Encounter Date Encounter Type Care Provider Facility Start: 08-21-2024 End: 08-21-2024 ambulatory Gianna Kelley MD Facility:[facility] Start: 07-25-2024 End: 07-25-2024 Bamboo flowsheet Dusty Nassar DO Work Phone: [facility] Start: 07-25-2024 End: 07-25-2024 Bamboo flowsheet Dusty Nassar DO Work Phone: [facility] Start: 07-25-2024 End: 07-25-2024 Clinical Support Dusty Nassar DO Work Phone: [facility] Comment on above: Macular Degeneration ; Retinal Injection Start: 05-30-2024 End: 05-30-2024 ambulatory DUSTY MIDDLETONER Not Available Start: 05-10-2024 End: 05-10-2024 ambulatory KRISS VELEZ Not Available Start: 04-05-2024 End: 04-05-2024 ambulatory DUSTY D LARRYHLER Not Available Start: 02-22-2024 End: 02-22-2024 ambulatory DUSTY D ZAHLER Not Available Start: 01-07-2024 End: 01-07-2024 ambulatory DUSTY D ZAHLER Not Available Start: 12-10-2023 End: 12-10-2023 ambulatory DUSTY D ZAHLER Not Available Start: 11-12-2023 End: 11-12-2023 ambulatory DUSTY D ZAHLER Not Available Start: 10-15-2023 End: 10-15-2023 ambulatory DUSTY D ZAHLER Not Available Start: 10-11-2023 End: 10-11-2023 ambulatory DUSTY NASSAR Not Available Start: 06-30-2023 End: 06-30-2023 ambulatory Emely Thomas Other [facility] Other Start: 06-30-2023 Office outpatient vi sit 15 minutes Emely Thomas [facility] Start: 05-18-2023 End: 05-18-2023 ambulatory Emely Thomas Other [facility] Other Start: 05-18-2023 Telephone encounter Emely Thomas [facility] Start: 05-13-2023 End: 05-14-2023 ambulatory [facility] Start: 05-13-2023 End: 05-13-2023 ambulatory [facility] Start: 04-16-2023 End: 04-17-2023 ambulatory [facility] Start: 04-13-2023 End: 04-13-2023 ambulatory Emely Thomas Other [facility] Other Start: 04-13-2023 Office outpatient vi sit 15 minutes Emely Thomas [facility] Start: 04-05-2023 End: 04-05-2023 ambulatory Ej Thomas Other [facility] Other Start: 04-05-2023 Telephone encounter Ej Thomas [facility] Start: 03-18-2023 End: 03-18-2023 ambulatory Ej Thomas Other [facility] Other Start: 03-18-2023 Office outpatient ne w 30 minutes Ej Thomas [facility] Start: 02-09-2023 End: 02-10-2023 ambulatory NARENDRANATH LAKSHMIPATHY . Facility:H1 Start: 02-01-2023 ambulatory NARENDRANATH LAKSHMIPATHY . Facility:H1 Start: 01-28-[address] MEELY THOMAS Facil ity:H1 Start: 01-28-2023 End: 01-29-2023 ambulatory NARENDRANATH LAKSHMIPATHY . Facility:H1 Start: 01-21-2023 End: 01-21-2023 ambulatory Emely Thomas Other [facility] Other Start: 01-21-2023 Office outpatient vi sit 15 minutes Emely Thomas [facility] Start: 01-12-2023 End: 01-12-2023 ambulatory NARENDRANATH LAKSHMIPATHY . Facility:H1 Start: 12-31-2022 End: 01-01-[address] EMELY THOMAS Facility:[facility]1 Start: 12-28-2022 End: 12-28-[address] EMELY THOMAS Facility:H1 Start: 12-24-2022 End: 12-25-[address] EMELY THOMAS Facility:[facility]1 Start: 10-07-2022 End: 10-08-2022 ambulatory SHAWNA RUIZ . Facility:H1 Start: 09-03-2022 Encounter for preprocedural laboratory examination DR YULI LEES . [facility] Start: 09-01-2022 End: 09-01-[address] YULI LEES . Facility:H1 Start: 08-28-2022 End: 08-29-[address] EMELY THOMAS Facility:[facility]1 Start: 08-28-2022 End: 08-29-2022 Encounter for preprocedural laboratory examination DR EMELY THOMAS Facility:[facility]1 Start: 08-11-2022 End: 08-11-[address] YULI LEES . Facility:[facility]1 Start: 08-08-2022 Encounter for preprocedural cardiovascular examination SHAWNA RUIZ . [facility] Start: 08-07-2022 End: 08-08-[address] [...] Start: 06-12-2022 End: 06-13-[address] EMELY HTOMAS Facility:H1 Start: 06-09-2022 End: 06-09-[address] YULI LEES . Facility:[facility]1 Start: 05-19-2022 End: 05-20-[address] YULI LEES . Facility:[facility]1 Start: 05-01-2022 End: 05-02-[address] YULI LEES . Facility:[facility]1 Start: 04-28-2022 End: 04-29-[address] YULI LEES . Facility:[facility]1 Start: 03-05-2022 End: 03-06-[address] YOUSUF ORTIZ Facility:[facility]1 Start: 04-27-2017 End: 04-27-2017 Ambulatory EMRE STAPLETON [facility] Procedures Date Procedure Procedure Detail Performing Clinician Start: 07-25-2024 Intravitreal njx pharmacologic agt spx Dusty Nassar DO Work Phone: Start: 07-25-2024 Computerized ophthal jing imaging retina Dusty Nassar DO Work Phone: Start: 04-27-2017 DISCHARGE PATIENT PATRICE SANTAMARIA DARA [...] procedure 05/24/2025 10:00 AM EDT Office Visit [facility] [address] [place] [phone] Kriss Velez DO [address] [place] [address] [facility] Start: 07-25-2024 End: 07-25-2024 Clinical Support 07/25/2024 1:45 PM EDT Clinical Support [facility] [address] [place] [id number] Dusty Nassar DO [address] [place] [address] Arrived [facility] Comment on above: Arrived Start: 05-28-2024 Influenza vaccination Influenza Vacc ine (#1) [facility] Start: 02-26-2023 ambulatory Ambulatory Facility:H 1 Intravitreal Injection, Pharmacologic Agent - OD - Right Eye Intravitreal Injection, Pharmacologic Agent - OD - Right Eye Ophthalmology Routine 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 2017 Medicare [id number] [id number]. [id number] 2014 Unknown [id number] 1959 Blue Cross Blue Shield [id number] 2.16.840.1.484353.19 1959 Medicare [id number] 2.16.840.1.330890.19 1959 Unknown [id number] 1947 Unknown [id number] 2.16.840.1.495233.3.579.2. 593 1947 Unknown [id number] 2.16.840.1.965723.3.579.2. 593 1947 Unknown [id number] 2.16.840.1.601065.3.579.2. 593 1947 Unknown [id number] 2.16.840.1.831183.3.579.2. 593 1947 Unknown [id number] 2.16.840.1.516734.3.579.2. 593 1947 Unknown [id number] 2.16.840.1.875693.3.579.2. 593 1947 Unknown [id number] 2.16.840.1.253335.3.579.2. 593 1947 Unknown [id number] 2.16.840.1.501628.3.579.2. 593 1947 Unknown [id number] 2.16.840.1.860640.3.579.2. 593 1947 Unknown [id number] 2.16.840.1.867073.3.579.2. 593 1947 Unknown [id number] 2.16.840.1.285294.3.579.2. 593 1947 Unknown [id number] 2.16.840.1.239190.3.579.2. 593 1947 Unknown [id number] 2.16.840.1.021700.3.579.2. 593 1947 Unknown [id number] 2.16.840.1.720756.3.579.2. 593 1947 Unknown [id number] 2.16.840.1.459097.3.579.2. 593 1947 Unknown [id number] 2.16.840.1.804703.3.579.2. 593 1947 Unknown [id number] 2.16.840.1.244835.3.579.2. 593 1947 Unknown [id number] 2.16.840.1.361135.3.579.2. 593 1947 Unknown [id number] 2.16.840.1.143205.3.579.2. 593 1947 Unknown [id number] 2.16.840.1.643043.3.579.2. 593 1947 Unknown [id number] 2.16.840.1.171971.3.579.2. 593 1947 Unknown [id number] 2.16.840.1.253855.3.579.2. 593 1947 Unknown [id number] 2.16.840.1.989153.3.579.2. 593 1947 Unknown [id number] 2.16.840.1.417679.3.579.2. 593 1947 Unknown [id number] 2.16.840.1.972580.3.579.2. 593 1947 Unknown [id number] 2.16.840.1.965639.3.579.2. 1259 1947 Unknown [id number] 2.16.840.1.554082.3.579.2. 1259 1947 Unknown [id number] 2.16.840.1.806641.3.579.2. 1259 1947 Unknown [id number] 2.16.840.1.426728.3.579.2. 1259 1947 Unknown [id number] 2.16.840.1.216302.3.579.2. 1259 1947 Unknown [id number] 2.16.840.1.356849.3.579.2. 1259 1947 Unknown [id number] 2.16.840.1.180478.3.579.2. 1259 1947 Unknown [id number] 2.16.840.1.868433.3.579.2. 9 1947 Unknown [id number] 2.16.840.1.349975.3.579.2. 1259 1947 Unknown [id number] 2.16.840.1.907391.3.579.2. 1259 1947 Unknown [id number] 2.16.840.1.933042.3.579.2. 196 Social History Date Type Detail Facility Unknown if ever smoked [facility] Other Start: 05-30-2024 Sex Assigned At [facility] Other Start: 10-11-2023 Tobacco smoking status DCIS Never smoked tobacco [facility] Start: 10-11-2023 [...] 2 MG/0.05ML Route: Intravitreal, Site: Left Eye [facility]: 80493-474-08, Lot: [id number], Expiration date: 08/27/2025, Waste: 0 mL Post-op [...] increased pain, redness, decreased vision or concerns. [facility] 07-25-2024 Note Right Eye Quality was good. Scan locations included subfoveal. Progression has been stable. Findings include abnormal foveal contour, pigment epithelial detachment. Left Eye Quality was good. Scan locations included subfoveal. Progression has been stable. Findings include abnormal foveal contour. [facility] 07-25-2024 History of Presen t illness Narrative Images from the original note were not included. Assessment/Plan Diagnoses and all orders for this visit: 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 eye with active choroidal neovascularization ([facility]/HCC) - OCT, Retina - OU - Both [...] 2 MG/0.05ML Route: Intravitreal, Site: Left Eye [facility]: 73012-957-46, Lot: [id number], Expiration date: 08/27/2025, Waste: 0 mL Post-op [...] vision or concerns. documented in this encounter [facility] 06-30-2023 Evaluation note Encounter Date Diagnosis Assessment Notes Jun, Acute non-recurrent maxillary sinusitis (ICD-10 - J01.00) Finish antibiotic, stay hydrated. Ok for NSAIDs for head pressure. Call if no improvement. [facility] Other 08-17-2023 NoteSUBJECTIVE: Chief complaint: Back and right leg pain. History of present illness: Consultation referred by pain management, Dr. Layton of [facility]. Patient reports chronic low back pain [...] found for any pre (more content not included)...[facility]08-17-2023 NoteSubjective: HPI: Letty Coffey is a 77 [...] and assess x-rays of back. Malina Mckeon MS3[facility]07-18-2023 Evaluation note* Encounter Date Diagnosis Assessment Notes [...] is busy with other appts right now. [facility] Other 06-22-2023 Evaluation note* Encounter Date Diagnosis [...] long as possible before considering surgical intervention. [facility] Other 05-04-2023 NoteCONSULTATION CONSULTATION DATE: 01/28/2023 TO: [...] our patients to inform us about any zsgn-tqp-wcibyxo medications or herbal remedies/nutritional supplements/alternative remedies. 2. [...] treatment options with their primary care provider.[id number] Evaluation note * Encounter Date Diagnosis Assessment Notes Treatment Notes Treatment Clinical Notes Dec, Essential (primary) hypertension (ICD-10 - I10) new problem. rx handwritten. f/u 6 weeks. Dec, Other chronic pain (ICD-10 - G89.29) Dec, Pain in left shoulder (ICD-10 - M25.512) PT order given to pt. [facility] Other 04-06-2023 NoteCONSULTATION CONSULTATION DATE: 12/31/2022 TO: [...] our patients to inform us about any ygfg-dtj-jstppcd medications or herbal remedies/nutritional supplements/alternative remedies. 2. [...] treatment options with their primary care provider.[facility] [id number] Note CONSULTATION PROCEDURE DATE: 10/07/2022 PREOPERATIVE DIAGNOSIS: [...] fan-like pattern. Patient tolerated the procedure well.[id number] NoteCONSULTATION CONSULTATION DATE: 10/07/2022 HISTORY OF PRESENT [...] sitting does decrease her pain. Medications include yycj-lwl-yxxanry Tylenol and the use of Salonpas patches. [...] otherwise indicated. Patient agrees with this plan.[facility] [id number] NoteCONSULTATION CONSULTATION DATE: 07/30/2022 This is a [...] be followed up at the office thereafter.[facility] [id number] NoteCONSULTATION CONSULTATION DATE: 06/25/2022 HISTORY OF PRESENT [...] patient is in agreement with this plan.[facility] [id number] NoteCONSULTATION CONSULTATION DATE: 05/19/2022 CHIEF COMPLAINT: Right [...] like to proceed. CC: Emely Thomas M.D.[facility] [id number] NoteCONSULTATION PROCEDURE DATE: 04/28/2022 PREOPERATIVE DIAGNOSIS: Right [...] Will be followed up in the office.[facility] [id number] NoteCONSULTATION CONSULTATION DATE: 04/28/2022 CHIEF COMPLAINT: Right [...] like to proceed. CC: Emely Thomas M.D.[facility] [id number] NotePROCEDURE: XR HIP RT 2 3V W PELVIS COMPARISON: None. HISTORY: Arthropathy FINDINGS: BONES:No acute fracture or dislocation. Mild osteoarthropathy with marginal osteophyte formation. 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 No visible soft tissue swelling. EFFUSION:None visible. OTHER: Negative. 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 Electronically authenticated by: YOUSUF ORTIZ Date: 2022-03-05 10:09[facility]Evaluation noteNo InformationNort [facility] Other Evaluation note* Diagnosis Exudative age-related macular degeneration of [...] History COLONOSCOPY Hospitalization History SEE SURGICAL HX [facility] Other History general Narrative - Reported* Type [...] growth surgery Hospitalization History SEE SURGICAL HX [facility] Other Summary Purpose Family History No Family History Records FoundNo Family History Records FoundNo Family History Records FoundNo Family History Records FoundNo Family History Records Found Advance Directives No Advanced Directives Records FoundNo Advanced Directives Records FoundNo Advanced Directives Records FoundNo Advanced Directives Records FoundNo Advanced Directives Records Found Additional Source Comments INFORMATION SOURCE (unrecogn ized section and content) DATE CREATED AUTHOR 03/23/2018 [facility] DATE CREATED AUTHOR AUTHOR'S ORGANIZ ATION 02/10/2023 [facility] DATE CREATED AUTHOR AUTHOR'S ORGANIZ ATION 05/19/2023 [facility] DATE CREATED AUTHOR AUTHOR'S ORGANIZ ATION 07/27/2024 [facility] EPIC DATE CREATED AUTHOR AUTHOR'S ORGANIZ ATION 08/27/2024 [facility] REASON FOR VISIT (unrecogniz ed section and content) Reason Comments Macular Degeneration Retinal Injection Care Teams (unrecognized sec tion and content) Supervisor Coremaker Relationship Specialty Start Date End Date Wiley Price MD [address] [place] [address] PCP - General Family Medicine 12/10/23 [place] [address] [place] [address] [id number] Referring Physician Family Medicine 10/15/23 Supervisor Coremaker Relationship Specialty Start Date End Date Wiley Price MD [address] [place] [address] PCP - General Family Medicine 12/10/23 [place] [address] [place] [id number] Referring Physician Family Medicine 10/15/23 FOR RECORDS [...] BE BASED ON THE PRIMARY CLINICAL RECORDS. [facility]. provides no warranty or guarantee of the accuracy or completeness of information in this document.
--- NOTE | 2024-08-31 10:15 | PM.CN ---
Consult Note: HPI Data of Consult Patient: known to practice within the last 3 years Consult date: 02/26/23 Requesting Physician: Bessy Johnson NP Primary Care Provider: KIEL ALMODOVAR Consult Narrative Reason for consult: back pain Narrative: Letty is here for f/u for low back pain, left shoulder pain, bilateral hip pain. Prior lumbar MRI consistent with scoliosis, lumbar stenosis, spinal cord tightly pulled against right side of central canal with compression at L3-4, multilevel foraminal stenosis and facet arthropathy. Patient has been evaluated by NS in the past but no surgical intervention was recommended, most recently met with Dr Carbone who does not recommend surgery as benefits do not outweigh the risks. Patient has failed to benefit from numerous injections including 2 LCIH nerve blocks, L4-5 L5-S1 facet medial branch blocks, and lumbar ESIs. Most recently underwent caudal EDWIN with 10% improvement per patient. Pain today 5/10 increasing to 8/10 with activity, standing, twisting, walking, stairs, housework, improved with sitting. denies loss of bowel/bladder. denies falls. Patient finds mild benefit from ibuprofen, tylenol, baclofen, zonegran 150mg hs, and tramadol 50-100mg bid PRN. Left shoulder pain 1/10, reporting 90% improvement ongoing from left suprascapular/axillary nerve block and shoulder injection. cc:: CC: Bessy Johnson NP Review of Systems ROS Status of ROS 10 or more systems reviewed and unremarkable except as noted in history and below Musculoskeletal Reports: back pain, extremity pain and joint pain [facility] Medical History Osteoarthritis ?M19.90 - Unspecified osteoarthritis, unspecified site (ICD-10) Low back pain ?M54.50 - Low back pain, unspecified (ICD-10) Hiatal hernia ?K44.9 - Diaphragmatic hernia without obstruction or gangrene (ICD-10) Obesity ?E66.9 - Obesity, unspecified (ICD-10) Heart murmur ?R01.1 - Cardiac murmur, unspecified (ICD-10) Surgical History History of ear surgery ?Z98.890 - Other specified postprocedural states (ICD-10) History of phacoemulsification of cataract with intraocular lens implantation ?Z98.49 - Cataract extraction status, unspecified eye (ICD-10) ?Z96.1 - Presence of intraocular lens (ICD-10) Hx of appendectomy ?Z90.49 - Acquired absence of other specified parts of digestive tract (ICD-10) H/O: hysterectomy ?Z90.710 - Acquired absence of both cervix and uterus (ICD-10) History of tonsillectomy ?Z90.89 - Acquired absence of other organs (ICD-10) Meds Home Medications and Allergies Home Medications ?Medication ?Instructions ?Recorded ?Confirmed ?Type aspirin 81 mg tablet,delayed 81 mg PO DAILY 02/26/23 08/21/24 History release (Adult Low Dose Aspirin) denosumab 60 mg/mL subcutaneous 60 mg subcut .Q6 MONTHS 02/26/23 08/21/24 History syringe (Prolia) niacin 500 mg tablet 500 mg PO DAILY 02/26/23 08/21/24 History baclofen 10 mg tablet 10 mg PO BID 03/01/23 08/21/24 History losartan 25 mg tablet 25 mg PO DAILY 03/01/23 08/21/24 History antiarthritic combination no.2 900 2 mg PO DAILY 07/15/23 08/21/24 History mg tablet (glucosamine-chondroitin) calcium 600 mg (as 2 cap PO DAILY 07/15/23 08/21/24 History carbonate)-vitamin D3 5 mcg (200 unit) capsule (Calcium 600 + D(3)) magnesium glycinate 100 mg (as 100 mg PO BID 07/15/23 08/21/24 History glycinate) tablet (Mag Glycinate) multivitamin (Daily Multi-Vitamin 1 tab PO DAILY 07/15/23 08/21/24 History tablet) omega 0-glh-wnz-fish oil 1,200 mg 2 cap PO DAILY 07/15/23 08/21/24 History (144 mg-216 mg) capsule (Fish Oil) vit C 250 mg-vit E 90 mg-zinc 40 1 tab PO BID 07/15/23 08/21/24 History mg-copper 1 eh-blwibw-bjpdbe capsule (PreserVision AREDS-2) vit C 250 mg-vit E 90 mg-zinc 40 1 tab PO BID 07/15/23 08/21/24 History mg-copper 1 ak-medhnm-qtmqny capsule (PreserVision AREDS-2) vitamin K2 100 mcg capsule 100 mcg PO DAILY 07/15/23 08/21/24 History cholecalciferol (vitamin D3) 50 2,000 unit PO BID 01/11/24 08/21/24 History mcg (2,000 unit) capsule (Vitamin D3) tramadol 50 mg tablet 50 mg PO BID PRN pain #60 tabs 06/02/24 08/21/24 Rx zonisamide 50 mg capsule 150 mg (3 x 50 mg) PO .qhs #270 06/30/24 Rx caps tramadol 50 mg tablet See Rx Instructions .Route 08/18/24 Rx .COMPLEX PRN pain #75 tabs Allergies Allergy/AdvReac Type Severity Reaction Status Date / Time No Known Drug Allergies Allergy Verified 08/21/24 11:06 Exam Constitutional Documenting provider has reviewed patient's vital signs: yes Common normals: no apparent distress, oriented x3, healthy appearing, alert and well nourished General appearance: cooperative HENMT Common normals: normocephalic, hearing grossly normal bilaterally and moist oral mucous membranes Head and scalp: normocephalic Eye Common normals: PERRL Pupil: PERRL Neck & C-Spine Common normals: full ROM General: normal visual inspection Chest Common normals: inspection of chest normal Respiratory Common normals: normal respiratory effort, no retractions and no use of accessory muscles Back & Pelvis Lumbar spine/lower back: ROM limited, pain with ROM and straight leg raise positive right Sacroiliac joints: SI joint(s) abnormal Other: right positive angel(patricks), gaenslens, thigh thrust, compression test positive facet loading decreased sensation right L4,5,S1 Extremity Common normals: normal to inspection and full ROM Left upper extremity: shoulder joint Right lower extremity: hip joint Left lower extremity: hip joint Other: left shoulder positive empty can, posterior liftoff, crossbody adduction and pain with ROM bilateral hips pain with internal and external rotation right >left Neuro Common normals: oriented x3, CN's II-XII intact bilaterally, moves all extremities, no focal motor deficits, no sensory deficits noted and deep tendon reflexes 2+ bilaterally Sensorium/orientation: alert Motor exam: strength 5/5 throughout and no movement abnormalities noted Psych Common normals: mental status grossly normal, thought process normal, cooperative, affect normal, speech normal and activity/motor behavior normal Speech: normal speech Thought process: normal thought process Results Additional Findings Additional findings: If on a controlled substance or opioids, I have checked an [place] report on this patient and there are no aberrancies noted in the prescribing history.??If on a controlled substance or opioid a drug screen was completed and reviewed within the last year, and if there has not been a drug screen completed we ordered one today to monitor higher risk, state monitored pain medication use. As part of providing excellent, safe, comprehensive care, the following was completed at our patient's visit: 1. A medication reconciliation and review to ensure accurate knowledge of current/active medications, including asking our patients to inform us about any deea-fpt-xtomlkk medications or herbal remedies/nutritional supplements/alternative remedies. 2. A review to specifically ensure our patients have had annual screening for screening for depression, screening for tobacco use, and screening for unhealthy alcohol use. For concerning screenings had a discussion with the patient, provided patient education, and recommended follow-up with primary care provider when appropriate. If patient noted with a risk of falling, they received education on strength, gait, and balance training to prevent future risk of falling. Assessment and Plan Assessment and Plan (1) Lumbar stenosis with neurogenic claudication: (2) Chronic low back pain with right-sided sciatica: (3) Chronic prescription opiate use: (4) Osteoarthritis of left shoulder: (5) Lumbar spondylosis: (6) Sacroiliitis: Plan right L4-5 L5-S1 TFESI under fluoroscopy with Dr Kelley, risks vs benefits reviewed, for lumbar stenosis with NC continue current medications, reports mild to moderate benefit without side effects continue HEP as tolerated f/u after injection, consider right SIJ injection
== END 2024-08-31 09:38 | disposition home or self-care (01) ==
LOC: PM 09:38
PROVIDERS: PCP Nurse Practitioner Family; Visit Provider Nurse Practitioner
DX: M48.062 Spinal stenosis, lumbar region with neurogenic claudication (principal); M54.41 Lumbago with sciatica, right side; Z79.891 Long term (current) use of opiate analgesic; M19.012 Primary osteoarthritis, left shoulder; M47.816 Spondylosis without myelopathy or radiculopathy, lumbar region; M46.1 Sacroiliitis, not elsewhere classified
CPT/HCPCS: G0463

== ENCOUNTER 2024-09-11 09:40 | Day surgery (SDC) | payer MEDICARE, BC, SELFPAY ==
[2024-09-11 09:46] VITALS: BP 137/84; PULSE 83; TEMP 36.2; O2SAT 99
--- OUTSIDE RECORDS SUMMARY | 2024-09-11 10:02 | XMS_ITS | CCD ---
Author Organization [facility] Care Team Providers Care Digital Account Supervisor Name Role Phone EMRE STAPLETON Unavailable Unavailable [...] MARTHA, DR EMELY Becker Primary Care Unavailable PURCELL, DR YOUSUF Ferguson Consulting Unavailable MARTHA, DR [...] YULI Nguyen Consulting Unavailable THOMAS, DR EMELY eBcker Primary Care Unavailable JILL STALLINGS Consulting Unava [...] LEES ., DR YULI Nguyen Attending Unavailable PURCELL, DR YOUSUF Ferguson Consulting Unavailable THOMAS, DR [...] Nguyen Admitting Unavailable LEES ., DR YULI Ngyuen Attending Unavailable MARTHA, DR EMELY Becker Primary [...] ON FILE] Propensity to adverse reactions (disorder) [facility] [place] Repository Medications Current Medications Medication Drug Class(es) [...] mg oral tablet (2 sources) Glucosamine-Eugene droitin-MSM (Kckzve-Kmzyg-ZPU-Double Str) 500-400-167 MG tablet every 12 (twelve) hours Active 1 ml denosumab 60 mg/ml prefilled syringe (8 sources) RANK Ligand Inhibitor denosumab (Prolia) 6 0 MG/ML solution prefilled syringe as directed Subcutaneous Active Fish Oils (5 sources) take 1 capsule by mouth once daily Fish Oil 1000 MG 1 capsule Orally Once a day Active Favqhq-Tlle-QOE-Ca-C-CtCl -SeCu - (5 sources) Gczruy-Vqtp-CAN- By-U-XvLq-SeCu - as directed Orally Active losartan potassium [...] each day at the same time Active Woodbine-3 Fatty Acids (Fish Oil) 1200 MG capsule delayed-release (2 sources) take 1 capsule by mouth every twelve hours Woodbine-3 Fatty Acids (Fish Oil) 1200 MG capsule [...] unspecified] Chronic Other aftercare (3 sources) 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; Translations: [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] Onset: 03-12-2022 Episodic Other bone disease and musculoskeletal deformities (5 sources) Osteopenia; Translations: [Other specified disorders of bone density and structure, unspecified site] Episodic Other bone disease and musculoskeletal deformities (6 sources) Other specified disorders of bone density and structure, unspecified site; Translations: [[facility] D/O BONE DEN STRUCT UNS [...] Facility Left eye Ophthalmologic chata tmenton 07-25-2024 [facility] Radiology Study observation (narrative) [facility] Optical coherence tomography study reporton 07-25-2024 [facility] Radiology Study observation (narrative) [facility] 36on 05-17-2023 36 Spoke with patient. 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 Normal [facility] 36on 05-14-2023 36 Left message for an [...] on Wednesday to follow-up regarding this. Normal [facility] Telephoneon 05-14-2023 Telephone [id number] Chrisstevo ice 1945 F Date Provider Department Center 05/14/2023 [id number] Second Fl Family History Problem Relation Age of Onset Other Mother Stomach cancer Father Family Status - Relation Status Age at Mother Father Normal [facility] Consulton 05-13-2023 Consult [id number] Chris ice 1945 F Date Provider Department Center 05/13/2023 [id number] Second Fl Family History Problem Relation Age of Onset Other Mother Stomach cancer Father Family Status - Relation Status Age at Mother Father Level of Service:12990 [place] OFFICE/OUTPATIENT NEW MODERATE MDM 45-59 MINUTES Reason for Visit and Comments: Consult [484] - Pt is here for a CO visit for Spinal Stenosis. Normal [facility] 36on 04-16-2023 36 LVM for pt to call jose shanks to schedule with or Dr. Lopez for Lunbar Stenosis. Imaging requested from [place]. Normal [facility] MRI LSPINE WO CONon 02-11-20 23 MRI [...] OFE COFFEY Date: 2023-02-10 07:16 Normal [facility] CALCIUMon 12-24-2022 Calcium [Mass/Vol] 9.7 mg/dL Normal 8.5-10.1 [facility] Comment on above: Performed By: #### C Dora CREA ####[facility] [address] [place] [address]Dr. Holly Fisher CREATININEon 12-24-2022 Creatinine [Mass/Vol] 0.62 mg/dL Normal 0.55-1.02 [facility] Comment on above: Performed By: #### C Dora CREA ####[facility] [address] [place] [address]Dr. Lindaban Fisher EGFR-AF PALAUAN >60 Normal >=60 [facility] Comment on above: Performed By: #### C Dora CREA ####[facility] [address] [address]Dr. Holly [facility] EGFR-NON AF PALAUAN >60 Normal >=60 [facility] Comment on above: Performed By: #### C Dora CREA ####[facility] [address] [place], [place] [address]Dr. Holly Fisher [facility] SARS-CoV-2 (COVID-19) RNA FRED+probe Ql (Unsp spec) Not detected Normal NOT DETECTED [facility] Comment on above: Result Comment: This test is not yet approved or cleared by the [place] FDA. When there are no FDA-approved or cleared tests available, and other criteria are met, FDA can make tests available under an emergency access mechanism called an Emergency Use Authorization (EUA). The EUA for this test is supported by the Senior Ui Web Developer of Health and Human Service's (HHS's) declaration [...] with SARS-CoV-2. Performed By: #### C VDTB ####[facility] [address] [place], [place] [address]Gs. Holly Phillip Covid-19 PCR ([facility])on 07-28 SARS-CoV-2 (COVID-19) RNA FRED+probe Ql (Unsp spec) Not detected Normal NOT DETECTED [facility] Comment on above: Result Comment: This test is not yet approved or cleared by the [place] FDA. When there are no FDA-approved or cleared tests available, and other criteria are met, FDA can make tests available under an emergency access mechanism called an Emergency Use Authorization (EUA). The EUA for this test is supported by the Senior Ui Web Developer of Health and Human Service's (HHS's) declaration [...] SARS-CoV-2. Performed By: #### C VDTBH #### [facility] [address] [address] [address] Holly Fihser CALCIUMon 06-12-2022 Calcium [Mass/Vol] 9.0 mg/dL Normal 8.5-10.1 [facility] Comment on above: Performed By: #### C JUAN PABLO, [place] ####[facility] [address] [place], [place] [address]OyDr. Holly Fisher CREATININEon 06-12-2022 Creatinine [Mass/Vol] 0.65 mg/dL Normal 0.55-1.02 [facility] Comment on above: Performed By: #### Jose ALMEIDA, [place] #### [facility] [address] [address] [address] Holly Fisher EGFR-AF PALAUAN >60 Normal >=60 [facility] Comment on above: Performed By: #### Jose ALMEIDA [place] #### [facility] [address] [address] [address] Holly Fisher EGFR-NON AF PALAUAN >60 Normal >=60 [facility] Comment on above: Performed By: #### Jose ALMEIDA, [place] #### [facility] [address] [address] [address] Holly Fisher XR LSPINE W_OBLS AND [...] YOUSUF ORTIZ Date: 2022-05-04 08:47 Normal [facility] CBC AUTO DIFFon 03-05-2022 BASO # 0.1 103/ul Normal 0.0-0.1 [facility] Comment on above: Performed By: #### C BC ####[facility] [address] [place] [address]Dr. Holly Fisher Basophils/100 WBC (Bld) 1.0 % Normal 0.2-2.0 [facility] Comment on above: Performed By: #### C BC ####[facility] [address] [place], [place] [address]Dr. Holly Phillip EO # 0.2 103/ul Normal 0.0-0.7 [facility] Comment on above: Performed By: #### C BC ####[facility] [address] [place], [place] [address]Dr. oHlly Phillip Eosinophils/100 WBC (Bld) 2.4 % Normal 0.9-7.0 [facility] Comment on above: Performed By: #### C BC ####[facility] [address] [place], [place] [address]Dr. Holly Fisher Erythrocyte distribution width (RBC) [Ratio] 14.4 % Normal 11.0-15.0 [facility] Comment on above: Performed By: #### C BC ####[facility] [address] [place], [place] [address]Dr. Holly Fisher Hematocrit (Bld) [Volume fraction] 41.1 % Normal 36.0-48.0 [facility] Comment on above: Performed By: #### C BC ####[facility] [address] [place], [place] [address]Dr. Holly Fisher Hemoglobin (Bld) [Mass/Vol] 13.4 g/dL Normal 12.0-16.0 [facility] Comment on above: Performed By: #### C BC ####[facility] [address] [place], [place] [address]Dr. Holly Phillip IG # 0.03 10e3/ul Normal 0.00-0.03 [facility] Comment on above: Performed By: #### C BC ####[facility] [address] [place], [place] [address]Dr. Holly Fisher IG % 0.5 % Normal 0.0-0.5 [facility] Comment on above: Performed By: #### C BC ####[facility] [address] [place] [address]Dr. Holly Phillip LYMPH # 1.5 103/ul Normal 1.2-3.8 [facility] Comment on above: Performed By: #### C BC ####[facility] [address] [place] [address]Dr. Holly Fisher Lymphocytes/100 WBC (Bld) 24.3 % Normal 20.5-60.0 [facility] Comment on above: Performed By: #### C BC ####[facility] [address] [place] [address]DrHafsa Fisher MANUAL DIFF REQ NO Normal [facility] Comment on above: Performed By: #### C BC ####[facility] [address] [place], [place] [address]Dr. Holly Fisher MCH (RBC) [Entitic mass] 30.3 pg Normal 26.7-34.0 [facility] Comment on above: Performed By: #### C BC ####[facility] [address] [place], [place] [address]Dr. Lindaban Fisher MCHC (RBC) [Mass/Vol] 32.6 g/dL Normal 29.9-35.2 [facility] Comment on above: Performed By: #### C BC ####[facility] [address] [place] [address]Dr. Holly Fisher MCV (RBC) [Entitic vol] 93.0 fL Normal 81.0-99.0 [facility] Comment on above: Performed By: #### C BC ####[facility] [address] [place], [place] [address]DrHafsa Fisher MONO # 0.5 103/ul Normal 0.3-0.8 [facility] Comment on above: Performed By: #### C BC ####[facility] [address] [place] [address]Dr. Holly Fisher Monocytes/100 WBC (Bld) 7.3 % Normal 1.7-12.0 [facility] Comment on above: Performed By: #### C BC ####[facility] [address] [place] [address]Dr. Holly Fisher NEUT # 4.1 103/ul Normal 1.4-6.5 [facility] Comment on above: Performed By: #### C BC ####[facility] [address] [place] [address]Dr. Holly Fisher Neutrophils/100 WBC (Bld) 64.5 % Normal 43.0-75.0 [facility] Comment on above: Performed By: #### C BC ####[facility] [address] [place] [id number]. Holly Fisher Platelet mean volume (Bld) [Entitic vol] 10.5 fL Normal 9.5-13.5 [facility] Comment on above: Performed By: #### C BC ####[facility] [address] [place] [id number]. Holly Fisher PLT 253 103/ul Normal 150-450 [facility] Comment on above: Performed By: #### C BC ####[facility] [address] [place] [id number]. Holly Fisher RBC 4.42 106/ul Normal 4.20-5.40 [facility] Comment on above: Performed By: #### C BC ####[facility] [address] [place] [id number]. Holly Fisher WBC 6.3 103/ul Normal 4.0-11.0 [facility] Comment on above: Performed By: #### C BC ####[facility] [address] [place] [id number]. Holly Fisher LIPID PROFILEon 03-05-2022 CHOL-HDL RATIO NORM SEE BELOW Normal [facility] Comment on above: Result Comment: 3.3 - 4.4 LOW RISK 4.4 - 7.1 AVERAGE RISK 7.1 - 11.0 MODERATE RISK >11.0 HIGH RISK Performed By: #### L IPID, CMP #### [facility] [address] [address] [address] Holly Fisher Cholesterol [Mass/Vol] 263 mg/dL Critically high <=200 [facility] Comment on above: Performed By: #### L IPID, CMP #### [facility] [address] [address] [address] Holly Fisher Cholesterol in HDL [Mass/Vol] 63 mg/dL Critically high 40-60 [facility] Comment on above: Performed By: #### L IPID, CMP #### [facility] [address] [address] [address] Holly Fihser Cholesterol in LDL [Mass/Vol] 160.2 mg/dL Normal [facility] Comment on above: Performed By: #### L IPID, CMP #### [facility] [address] [address] [address] Holly Fisher Cholesterol.total/ Cholesterol in HDL [Mass ratio] 4.2 {ratio} Normal [facility] Comment on above: Performed By: #### L IPID, CMP #### [facility] [address] [address] [address] Holly Fisher HDL NORMAL > or = 60 mg/dl - LO W CARDIOVASCULAR RISK <40 mg/dl - HIGH CARDIOVASCULAR RISK Normal [facility] Comment on above: Performed By: #### L IPID, CMP #### [facility] [address] [address] [address] Holly Fisher LDL CALC NORMAL SEE BELOW Normal [facility] Comment on above: Result Comment: <100 mg/dl OPTIMAL 100 - 129 mg/dl NEAR OR ABOVE OPTIMAL 130 - 159 mg/dl BORDERLINE HIGH 160 - 189 mg/dl HIGH >190 mg/dl VERY HIGH Performed By: #### L IPID, CMP #### [facility] [address] [address] [address] Holly Fisher Triglyceride [Mass/Vol] 199 mg/dL Critically high <=150 [facility] Comment on above: Performed By: #### L IPID, CMP #### [facility] [address] [address] [address] Holly Fisher VLDL CALC 39.8 mg/dL Normal [facility] Comment on above: Performed By: #### L IPID, CMP #### [facility] [address] [address] [address] Holly Fisher MG MAMM SCREEN 3D SHERRIE CADon 03-05-2022 MG MAMM SCREEN 3D SHERRIE CAD Patient: LETTY COFFEY Exam Date: 03/05/2022 : 1945 Gender:F Ordering : DR EMELY THOMAS M.D. Admission #: [id number] Family : Order #: [id number] CLICK HERE TO VIEW EXAM RADIOLOGY REPORT [...] Treatments None Family Cancers None LOCATION: [facility] BREAST COMPOSITION: Scattered areas fibroglandular density. [...] Ortiz MD on 03/05/2022 at 09:55 Normal [facility] PROF 14(COMP METB)on 022 Albumin [Mass/Vol] 3.9 g/dL Normal 3.4-5.0 [facility] Comment on above: Performed By: #### L DREAD CMP #### [facility] [address] [address] [address] Holly Fisher Albumin/Globulin [Mass ratio] 1.1 {ratio} Normal [facility] Comment on above: Performed By: #### L DREAD CMP #### [facility] [address] [address] [address] Holly Fisher ALP [Catalytic activity/Vol] 54 U/L Normal 46-116 [facility] Comment on above: Performed By: #### L IPID, CMP #### [facility] [address] [address] [address] Holly Fisher ALT [Catalytic activity/Vol] 22 U/L Normal 14-59 [facility] Comment on above: Performed By: #### L IPID, CMP #### [facility] [address] [address] [address] Holly Fisher Anion gap [Moles/Vol] 12.5 mmol/L Normal [facility] Comment on above: Performed By: #### L IPID, CMP #### [facility] [address] [address] [address] Holly Fisher AST [Catalytic activity/Vol] 14 U/L Critically low 15-37 [facility] Comment on above: Performed By: #### L IPID, CMP #### [facility] [address] [place] [address] Dr. Holly Fisher Bilirubin [Mass/Vol] 0.4 mg/dL Normal 0.2-1.0 [facility] Comment on above: Performed By: #### L IPID, CMP #### [facility] [address] [place] [address] Dr. Holly Fisher Calcium [Mass/Vol] 8.6 mg/dL Normal 8.5-10.1 [facility] Comment on above: Performed By: #### L IPID, CMP #### [facility] [address] [place] [address] Dr. Holly Fisher Chloride [Moles/Vol] 106 mmol/L Normal 98-107 [facility] Comment on above: Performed By: #### L IPID, CMP #### [facility] [address] [address] [address] Holly Fisher CO2 [Moles/Vol] 26.8 mmol/L Normal 21.0-32.0 [facility] Comment on above: Performed By: #### L IPID, CMP #### [facility] [address] [address] [address] Holly Fisher Creatinine [Mass/Vol] 0.60 mg/dL Normal 0.55-1.02 [facility] Comment on above: Performed By: #### L IPID, CMP #### [facility] [address] [address] [address] Holly Fisher EGFR-AF PALAUAN >60 Normal >=60 [facility] Comment on above: Performed By: #### L IPID, CMP #### [facility] [address] [address] [address] Holly Fisher EGFR-NON AF PALAUAN >60 Normal >=60 [facility] Comment on above: Performed By: #### L IPID, CMP #### [facility] [address] [address] [address] Holly Fisher Globulin (S) [Mass/Vol] 3.4 g/dL Normal [facility] Comment on above: Performed By: #### L IPID, CMP #### [facility] [address] [address] [address] Holly Fisher Glucose [Mass/Vol] 98 mg/dL Normal 74-106 [facility] Comment on above: Performed By: #### L IPID, CMP #### [facility] [address] [address] [address] Holly Fisher Potassium [Moles/Vol] 4.3 mmol/L Normal 3.5-5.1 [facility] Comment on above: Performed By: #### L IPID, CMP #### [facility] [address] [place] [address] Dr. Holly Fisher Protein [Mass/Vol] 7.3 g/dL Normal 6.4-8.2 [facility] Comment on above: Performed By: #### L IPID, CMP #### [facility] [address] [address] [address] Holly Fisher Sodium [Moles/Vol] 141 mmol/L Normal 136-145 [facility] Comment on above: Performed By: #### L IPID, CMP #### [facility] [address] [address] [address] Holly Fisher Urea nitrogen [Mass/Vol] 14.0 mg/dL Normal 7.0-18.0 [facility] Comment on above: Performed By: #### L IPID, CMP #### [facility] [address] [address] [address] Holly Fisher Urea nitrogen/Creatinin e [Mass ratio] 23.3 mg/mg Normal [facility] Comment on above: Performed By: #### L IPID, CMP #### [facility] [address] [address] [address] Holly Fisher XR DEXA BONE DENSITYon [...] by: YOUSUF ORTIZ Date: 2022-03-05 10:00 Normal [facility] History and Physicalon 04-27 HIM IP Note OR Tube Trailer Filler Normal [facility] OPERATIVE REPORTon 7 [facility] : [birth year][facility] REC NO: [id number] ROOM:ACCOUNT NO: [id number] ADMISSION DATE: 04/27/17PHYSICIAN: EMRE STAPLETONDATE OF PROCEDURE: [...] used to engage the membrane in a zrpbq-shk-meba technique andthe membrane was elevated from the [...] theprocedure well without complications.EMRE STAPLETOND:04/27/2017 9:59:31 CD/[id number]_TJob#: [id number] Doc#: [id number] [facility] Vital Signs Date Time Vital Sign Value Performing Clinician Facility 06-30-2023 09:15-0400 Body height 158.75 cm Emely Thomas Other [facility] Other 06-30-2023 09:15-0400 Body mass index (BMI) [Ratio] 30.95 kg/m2 Emely Thomas Other [facility] Other 06-30-2023 09:15-0400 Body temperature 96.5 [degF] Emely Thomas Other [facility] Other 06-30-2023 09:15-0400 Body weight 78.02 kg Emely Thomas Other [facility] Other 06-30-2023 09:15-0400 Diastolic blood pressure 76 mm[Hg] Emely Thomas Other [facility] Other 06-30-2023 09:15-0400 Systolic blood pressure 156 mm[Hg] Emely Thomas Other [facility] Other 04-13-2023 15:00-0400 Body height 158.75 cm Emely Thomas Other [facility] Other 04-13-2023 15:00-0400 Body mass index (BMI) [Ratio] 31.49 kg/m2 Emely Thomas Other [facility] Other 04-13-2023 15:00-0400 Body weight 79.38 kg Emely Thomas Other [facility] Other 04-13-2023 15:00-0400 Diastolic blood pressure 78 mm[Hg] Emely Thomas Other [facility] Other 04-13-2023 15:00-0400 Systolic blood pressure 135 mm[Hg] Emely Thomas Other [facility] Other 03-18-2023 08:40-0400 Body height 158.75 cm Ej Thomas Other [facility] Other 03-18-2023 08:40-0400 Body mass index (BMI) [Ratio] 31.67 kg/m2 Ej Thomas Other [facility] Other 03-18-2023 08:40-0400 Body weight 79.83 kg Ej Thomas Other [facility] Other 03-18-2023 08:40-0400 Diastolic blood pressure 84 mm[Hg] Ej Thomas Other [facility] Other 03-18-2023 08:40-0400 Systolic blood pressure 134 mm[Hg] Ej Thomas Other [facility] Other 01-21-2023 11:00-0400 Body height 158.75 cm Emely Thomas Other [facility] Other 01-21-2023 11:00-0400 Body mass index (BMI) [Ratio] 32.21 kg/m2 Emely Thomas Other [facility] Other 01-21-2023 11:00-0400 Body weight 81.19 kg Emely Thomas Other [facility] Other 01-21-2023 11:00-0400 Diastolic blood pressure 82 mm[Hg] Emely Thomas Other [facility] Other 01-21-2023 11:00-0400 SaO2% (BldA) [Mass fraction] 97 % Emely Thomas Other [facility] Other 01-21-2023 11:00-0400 Systolic blood pressure 142 mm[Hg] Emely Thomas Other [facility] Other Encounters Encounter Date Encounter Type Care Provider Facility Start: 08-21-2024 End: 08-21-2024 ambulatory Gianna Kelley MD Facility:[facility] Start: 07-25-2024 End: 07-25-2024 Bamboo flowsheet Dutsy Nassar DO Work Phone: [facility] [...] 06-30-2023 End: 06-30-2023 ambulatory Emely Thomas Other [facility] Other Start: 06-30-2023 Office outpatient vi sit 15 minutes Emely Thomas [facility] Start: 05-18-2023 End: 05-18-2023 ambulatory Emely Thomas Other [facility] Other Start: 05-18-2023 Telephone encounter Emely Thomas [facility] Start: 05-13-2023 End: 05-14-2023 ambulatory [facility] Start: 05-13-2023 End: 05-13-2023 ambulatory [facility] Start: 04-16-2023 End: 04-17-2023 ambulatory [facility] Start: 04-13-2023 End: 04-13-2023 ambulatory Emely Thomas Other [facility] Other Start: 04-13-2023 Office outpatient vi sit 15 minutes Emely Thomas [facility] Start: 04-05-2023 End: 04-05-2023 ambulatory Ej Thomas Other [facility] Other Start: 04-05-2023 Telephone encounter Ej Thomas [facility] Start: 03-18-2023 End: 03-18-2023 ambulatory Ej Thomas Other [facility] Other Start: 03-18-2023 Office outpatient ne w 30 minutes Ej Thomas [facility] Start: 02-09-2023 End: 02-10-2023 ambulatory NARENDRANATH LAKSHMIPATHY . Facility:[facility] Start: 02-01-2023 ambulatory NARENDRANATH LAKSHMIPATHY . Facility:[facility] Start: 01-28-[address] EMELY THOMAS Facil ity:[facility] Start: 01-28-2023 End: 01-29-2023 ambulatory NARENDRANATH LAKSHMIPATHY . Facility:[facility] Start: 01-21-2023 End: 01-21-2023 ambulatory Emely Thomas Other [facility] Other Start: 01-21-2023 Office outpatient vi sit 15 minutes Emely Thomas [facility] Start: 01-12-2023 End: 01-12-2023 ambulatory NARENDRANATH LAKSHMIPATHY . Facility:[facility] Start: 12-31-2022 End: 01-01-[address] EMELY THOMAS Facility:[facility] Start: 12-28-2022 End: 12-28-[address] EMELY THOMAS Facility:[facility] Start: 12-24-2022 End: 12-25-[address] EMELY THOMAS Facility:[facility] Start: 10-07-2022 End: 10-08-2022 ambulatory SHAWNA RUIZ . Facility:[facility] Start: 09-03-2022 Encounter for preprocedural laboratory examination DR YULI LEES . [facility] Start: 09-01-2022 End: 09-01-[address] YULI LEES . Facility:[facility] Start: 08-28-2022 End: 08-29-[address] EMELY THOMAS Facility:[facility] Start: 08-28-2022 End: 08-29-2022 Encounter for preprocedural laboratory examination DR EMELY THOMAS Facility:[facility] Start: 08-11-2022 End: 08-11-[address] YULI LEES . Facility:[facility] Start: 08-08-2022 Encounter for preprocedural cardiovascular examination SHAWNA RUIZ . [facility] Start: 08-07-2022 End: 08-08-[address] [...] Start: 04-27-2017 End: 04-27-2017 Ambulatory EMRE STAPLETON [facility] Procedures Date Procedure Procedure Detail [...] procedure 05/24/2025 10:00 AM EDT Office Visit [facility] [address] [place] [phone] Kriss Velez DO [address] [place] [address] [facility] Start: 07-25-2024 End: 07-25-2024 Clinical Support 07/25/2024 1:45 PM EDT Clinical Support [facility] [address] [place] [id number] Dusty Nassar DO [address] [place] [address] Arrived [facility] Comment on above: Arrived Start: 05-28-2024 Influenza vaccination Influenza Vacc ine (#1) [facility] Start: 02-26-2023 ambulatory Ambulatory Facility:[facility] 1 Intravitreal Injection, Pharmacologic Agent - OD - Right Eye Intravitreal Injection, Pharmacologic Agent - OD - Right Eye Ophthalmology Routine 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 eye with active choroidal neovascularization (HCC) (CMS/HCC) Ordered: 07/25/2024 [facility] Work Phone: Comment on above: Ordered: 07/25/2024 Immunizations Immunization Date Immunization Notes Care Provider Fa [facility] 07-26-2023 influenza virus vacc ine, unspecified formulation Dusty Nassar DO Work Phone: [facility] Payers Date Payer Category Payer Unknown 2018 [facility] er [id number] 2017 Medicare [id number]. [id number]. [id number] 2014 Unknown [id number] 1959 [employer] Blue Shield [id number] 2.16.840.1.269222.19 1959 Medicare [id number] 2.16.840.1.485624.19 1959 Unknown [id number] 1947 Unknown [id number] 2.16.840.1.637564.3.579.2. 593 1947 Unknown [id number] 2.16.840.1.811350.3.579.2. 593 1947 Unknown [id number] 2.16.840.1.562423.3.579.2. 593 1947 Unknown [id number] 2.16.840.1.546169.3.579.2. 593 1947 Unknown [id number] 2.16.840.1.484089.3.579.2. 593 1947 Unknown [id number] 2.16.840.1.332349.3.579.2. 593 1947 Unknown [id number] 2.16.840.1.135693.3.579.2. 593 1947 Unknown [id number] 2.16.840.1.709476.3.579.2. 593 1947 Unknown [id number] 2.16.840.1.893744.3.579.2. 593 1947 Unknown [id number] 2.16.840.1.029186.3.579.2. 593 1947 Unknown [id number] 2.16.840.1.836276.3.579.2. 593 1947 Unknown [id number] 2.16.840.1.278122.3.579.2. 593 1947 Unknown [id number] 2.16.840.1.382482.3.579.2. 593 1947 Unknown [id number] 2.16.840.1.876187.3.579.2. 593 1947 Unknown [id number] 2.16.840.1.478177.3.579.2. 593 1947 Unknown [id number] 2.16.840.1.492871.3.579.2. 593 1947 Unknown [id number] 2.16.840.1.915691.3.579.2. 593 1947 Unknown [id number] 2.16.840.1.348435.3.579.2. 593 1947 Unknown [id number] 2.16.840.1.402834.3.579.2. 593 1947 Unknown [id number] 2.16.840.1.340120.3.579.2. 593 1947 Unknown [id number] 2.16.840.1.167887.3.579.2. 593 1947 Unknown [id number] 2.16.840.1.600679.3.579.2. 593 1947 Unknown [id number] 2.16.840.1.713883.3.579.2. 593 1947 Unknown [id number] 2.16.840.1.835988.3.579.2. 593 1947 Unknown [id number] 2.16.840.1.572331.3.579.2. 593 1947 Unknown [id number] 2.16.840.1.907866.3.579.2. 1259 1947 Unknown [id number] 2.16.840.1.134350.3.579.2. 1259 1947 Unknown [id number] 2.16.840.1.562372.3.579.2. 1259 1947 Unknown [id number] 2.16.840.1.096465.3.579.2. 1259 1947 Unknown [id number] 2.16.840.1.794416.3.579.2. 1259 1947 Unknown [id number] 2.16.840.1.370849.3.579.2. 1259 1947 Unknown [id number] 2.16.840.1.079646.3.579.2. 1259 1947 Unknown [id number] 2.16.840.1.454388.3.579.2. 9 1947 Unknown [id number] 2.16.840.1.221646.3.579.2. 1259 1947 Unknown [id number] 2.16.840.1.511334.3.579.2. 1259 1947 Unknown [id number] 2.16.840.1.069728.3.579.2. 196 Social History Date Type Detail Facility Unknown if ever smoked [facility] Other Start: 05-30-2024 Sex Assigned At [facility] Other Start: 10-11-2023 Tobacco smoking status NVIS Never smoked tobacco [facility] Start: 10-11-2023 [...] 2 MG/0.05ML Route: Intravitreal, Site: Left Eye [facility]: [id number], Lot: [id number], Expiration date: 08/27/2025, Waste: 0 mL Post-op [...] increased pain, redness, decreased vision or concerns. [facility] 07-25-2024 Note Right Eye Quality was good. Scan locations included subfoveal. Progression has been stable. Findings include abnormal foveal contour, pigment epithelial detachment. Left Eye Quality was good. Scan locations included subfoveal. Progression has been stable. Findings include abnormal foveal contour. [facility] 07-25-2024 History of Presen t illness Narrative Images from the original note were not included. Assessment/Plan Diagnoses and all orders for this visit: 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 eye with active choroidal neovascularization ([facility]/HCC) - OCT, Retina - OU - Both [...] 2 MG/0.05ML Route: Intravitreal, Site: Left Eye [facility]: [id number], Lot: [id number], Expiration date: 08/27/2025, Waste: 0 mL Post-op [...] vision or concerns. documented in this encounter [facility] 06-30-2023 Evaluation note Encounter Date Diagnosis Assessment Notes Jun, Acute non-recurrent maxillary sinusitis (ICD-10 - J01.00) Finish antibiotic, stay hydrated. Ok for NSAIDs for head pressure. Call if no improvement. [facility] Other 08-17-2023 NoteSUBJECTIVE: Chief complaint: Back and right leg pain. History of present illness: Consultation referred by pain management, Dr. Layton of [facility]. Patient reports chronic low back pain [...] found for any pre (more content not included)...[facility]08-17-2023 NoteSubjective: HPI: Letty Coffey is a 77 [...] and assess x-rays of back. Malina Mckeon MS3[facility]07-18-2023 Evaluation note* Encounter Date Diagnosis Assessment Notes [...] is busy with other appts right now. [facility] Other 06-22-2023 Evaluation note* Encounter Date Diagnosis [...] long as possible before considering surgical intervention. [facility] Other 05-04-2023 NoteCONSULTATION CONSULTATION DATE: 01/28/2023 TO: [...] our patients to inform us about any mbjj-izh-ondxsdp medications or herbal remedies/nutritional supplements/alternative remedies. 2. [...] treatment options with their primary care provider.[facility] [id number] Evaluation note * Encounter Date Diagnosis Assessment Notes Treatment Notes Treatment Clinical Notes Dec, Essential (primary) hypertension (ICD-10 - I10) new problem. rx handwritten. f/u 6 weeks. Dec, Other chronic pain (ICD-10 - G89.29) Dec, Pain in left shoulder (ICD-10 - M25.512) PT order given to pt. [facility] Other 04-06-2023 NoteCONSULTATION CONSULTATION DATE: 12/31/2022 TO: [...] our patients to inform us about any pxfa-pvg-zkxsuvq medications or herbal remedies/nutritional supplements/alternative remedies. 2. [...] treatment options with their primary care provider.[facility] [id number] Note CONSULTATION PROCEDURE DATE: 10/07/2022 PREOPERATIVE DIAGNOSIS: [...] fan-like pattern. Patient tolerated the procedure well.[facility] [id number] NoteCONSULTATION CONSULTATION DATE: 10/07/2022 HISTORY OF PRESENT [...] sitting does decrease her pain. Medications include plvd-zkr-wdszyik Tylenol and the use of Salonpas patches. [...] otherwise indicated. Patient agrees with this plan.[facility] HospitalFxumkhyi67-24-2029 NoteCONSULTATION CONSULTATION DATE: 07/30/2022 This is a [...] be followed up at the office thereafter.[facility] HospitalUvhndvsp93-60-2816 NoteCONSULTATION CONSULTATION DATE: 06/25/2022 HISTORY OF PRESENT [...] patient is in agreement with this plan.[facility] HospitalNhebxgqb49-96-5433 NoteCONSULTATION CONSULTATION DATE: 05/19/2022 CHIEF COMPLAINT: Right [...] like to proceed. CC: Emely Thomas M.D.[facility] HospitalSpjhyzqj56-28-1197 NoteCONSULTATION PROCEDURE DATE: 04/28/2022 PREOPERATIVE DIAGNOSIS: Right [...] Will be followed up in the office.[facility] [id number] NoteCONSULTATION CONSULTATION DATE: 04/28/2022 CHIEF COMPLAINT: Right [...] like to proceed. CC: Emely Thomas M.D.[facility] HospitalPeptxwtu18-60-0152 NotePROCEDURE: XR HIP RT 2 3V W PELVIS COMPARISON: None. HISTORY: Arthropathy FINDINGS: BONES:No acute fracture or dislocation. Mild osteoarthropathy with marginal osteophyte formation. 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 No visible soft tissue swelling. EFFUSION:None visible. OTHER: Negative. 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 Electronically authenticated by: YOUSUF ORTIZ Date: 2022-03-05 10:09[facility]Evaluation noteNo InformationNort [facility] Other Evaluation note* Diagnosis Exudative age-related macular [...] History COLONOSCOPY Hospitalization History SEE SURGICAL HX [facility] Other History general Narrative - Reported* Type [...] growth surgery Hospitalization History SEE SURGICAL HX [facility] Other Summary Purpose Family History No Family History Records FoundNo Family History Records FoundNo Family History Records FoundNo Family History Records FoundNo Family History Records Found Advance Directives No Advanced Directives Records FoundNo Advanced Directives Records FoundNo Advanced Directives Records FoundNo Advanced Directives Records FoundNo Advanced Directives Records Found Additional Source Comments INFORMATION SOURCE (unrecogn ized section and content) DATE CREATED AUTHOR 03/23/2018 [facility] DATE CREATED AUTHOR AUTHOR'S ORGANIZ ATION 02/10/2023 [facility] DATE CREATED AUTHOR AUTHOR'S ORGANIZ ATION 05/19/2023 [facility] DATE CREATED AUTHOR AUTHOR'S ORGANIZ ATION 07/27/2024 [facility] EPIC DATE CREATED AUTHOR AUTHOR'S ORGANIZ ATION 08/27/2024 [facility] REASON FOR VISIT (unrecogniz ed section and content) Reason Comments Macular Degeneration Retinal Injection Care Teams (unrecognized sec tion and content) Digital Account Supervisor Relationship Specialty Start Date End Date Wiley Price MD [address] [place] [address] PCP - General Family Medicine 12/10/23 [place] [address] [place] [address] [id number] Referring Physician Family Medicine 10/15/23 Digital Account Supervisor Relationship Specialty Start Date End Date Wiley Price MD [address] [place] [address] PCP - General Family Medicine 12/10/23 [place] [address] [place] [id number] Referring Physician Family Medicine 10/15/23 FOR RECORDS [...] BE BASED ON THE PRIMARY CLINICAL RECORDS. [facility] [employer] [facility]. provides no warranty or guarantee of the accuracy or completeness of information in this document.
[2024-09-11 10:07] VITALS: BP 163/77; PULSE 82; O2SAT 97
[2024-09-11 10:08] VITALS: BP 168/85; PULSE 77; O2SAT 95
[2024-09-11] MEDS: IOHEXOL 240 MG/ML - 10 ML VIAL 12 MG INJ (10:13)
[2024-09-11] MEDS: BUPIVACAINE HCL 0.25% PF 25 MG/10 ML VIAL INJ (10:13)
[2024-09-11] MEDS: 0.9 % SODIUM CHLORIDE 10 ML SYRINGE - SALINE FLUSH INJ (10:13)
--- NOTE | 2024-09-11 10:13 | P.ON_ITS ---
Date of procedure: 09/11/24 Pre-op diagnosis: Pain due to lumbar stenosis with neurogenic claudication Post-op diagnosis: same as pre-op Procedure: Procedure: Right L4-5, L5-S1 transforaminal epidural steroid injection Medications: Bupivacaine 0.25% 2cc, lidocaine 2% 1cc, depomedrol 80mg The patient was seen and examined in the preoperative holding area.? Informed consent was obtained and placed on the chart.? Patient was brought to the medical procedure unit and placed in the prone position where a timeout was completed verifying the correct patient, procedure site, position, and planned special equipment using sterile aseptic technique.? Under direct fluoroscopic visualization a 25-gauge Quincke tipped spinal needle was advanced to the designated neural foramen where contrast dye was injected to show adequate spread.? The needle was inserted at level right L4-5. There was no evidence of vascular or adverse uptake.? Epidural spread was appreciated.? The above- mentioned injectate was then placed in a 1.5 mL aliquot preceded by negative aspiration.? The needle was removed. The needle was inserted and the procedure repeated at level right L5-S1.? The surgery site was covered.? Patient was taken to the postprocedural recovery area and monitored for an appropriate length of time before found suitable for discharge in the accompaniment of a responsible adult. Anesthesia: Local Surgeon: Gianna Kelley Pathology: none sent Condition: stable Disposition: no change
[2024-09-11] MEDS: METHYLPREDNISOLONE ACETATE 80 MG/ML VIAL INJ (10:14)
[2024-09-11] MEDS: LIDOCAINE HCL 2% 400 MG/20 ML MDV INJ (10:14)
== END 2024-09-11 10:17 | disposition home or self-care (01) ==
LOC: SURGOUT 09:41
PROVIDERS: PCP Nurse Practitioner Family; Visit Provider Anesthesiology
DX: M48.062 Spinal stenosis, lumbar region with neurogenic claudication (principal)
CPT/HCPCS: 64483; 64484; J0665; J1010; Q9966

== ENCOUNTER 2024-09-18 10:35 | Outpatient (OUT) | payer MEDICARE, BC, SELFPAY ==
--- OUTSIDE RECORDS SUMMARY | 2024-09-18 10:40 | XMS_ITS | CCD ---
Author Organization [facility] Care Team Providers Care Model Dresser Name Role Phone EMRE STAPLETON Unavailable Unavailable EMRE TSAPLETON Unavailable Unavailable KAT NOBLE Unavailable Unavailable Emely [...] MARTHA, DR EMELY Becker Primary Care Unavailable EATON, DR YOUSUF Ferguson Consulting Unavailable MARTHA, DR [...] LEES ., DR YULI Nguyen Attending Unavailable EATON, DR YOUSUF Ferguson Consulting Unavailable THOMAS, DR EMELY Becker Primary Care Unavailable LEES ., DR YULI Nguyen Consulting Unavailable THOMAS, DR EMELY Becker Primary Care Unavailable THOMAS, DR EMELY Becker Admitting Unavailable THOMAS, DR EMELY Becker Attending Unavailable THOMAS, DR EMELY Becker Consulting Unavailable THOMAS, DR EMELY Becker Admitting Unavailable THOMAS, DR EMELY eBcker Primary Care Unavailable THOMAS, DR EMELY Becker [...] Unavailable Wiley Price MD Primary Care Provider [phone] DUSTY NASSAR Attending Unavailable DUSTY NASSAR Attending [...] ON FILE] Propensity to adverse reactions (disorder) [facility] Repository Medications Current Medications Medication Drug [...] / zinc oxide 17.4 mg oral capsule (9 sources) Vitamin C Multiple Vitamins-Mineral s (PreserVision AREDS 2) capsule 1 (one) time each day at the same time Active PreserVision ARE DS 2 - as directed Orally Active aspirin 81 mg delayed release oral tablet (9 sources) Platelet Aggregation Inhibitor, Nonsteroidal Anti-inflammatory Drug aspirin 81 MG EC tab let 1 (one) time each day at the same time Active take 1 tablet by mouth once ginger y Aspirin 81 81 MG 1 tablet Orally Once a day Active baclofen 10 mg oral tablet (10 sources) gamma-Aminobutyric Acid-ergic Agonist Start: 04-30-2023 baclofen (Lioresal) 10 MG tablet every 12 (twelve) hours 04/30/2023 Active take 1 tablet by mouth every twe lve hours Baclofen 10 MG 1 tablet as needed Orally Twice a day Active calcium carbonate 1500 mg oral tablet (9 sources) take 1 tablet by arminda th once at mealtime calcium carbonate (Super Calcium) 1500 (600 Ca) MG tablet 1 tablet with meals Orally Once Active take 1 tablet by mouth every twe lve hours Calcium 600 MG 1 tablet with meals Orally Twice a day Active cholecalciferol 0.025 mg ora l tablet (9 sources) Vitamin D cholecalciferol (Vitamin D3) 25 MCG (1000 UT) tablet 1 (one) time each day at the same time Active take 1 tablet by arminda th every twenty-four hours Vitamin D 50 MCG (2000 UT) 1 tablet Orally Once a day Active chondroitin sulfates 400 mg / glucosamine sulfate 500 mg / methylsulfonylmethane 167 mg oral tablet (4 sources) Glucosamine-Eugene droitin-MSM (Vmeoqs-Odltj-TTY-Double Str) 500-400-167 MG tablet every 12 (twelve) hours Active 1 ml denosumab 60 mg/ml prefilled syringe (10 sources) RANK Ligand Inhibitor denosumab (Prolia) 6 0 MG/ML solution prefilled syringe as directed Subcutaneous Active Fish Oils (5 sources) take 1 capsule by mouth once daily Fish Oil 1000 MG 1 capsule Orally Once a day Active Brrffb-Ejwm-LCZ-Ca-C-CtCl -SeCu - (5 sources) Qvkjaf-Yehu-INV- Zv-U-JxNo-SeCu - as directed Orally Active losartan potassium 25 mg oral tablet (10 sources) Angiotensin 2 Receptor Héctor Star t: 12-27 losartan (Cozaar) 25 MG tabl et Oral for 90 Days 02/19/2023 Active Magnesium glycinate (9 sources) Magnesium Glycin ate 100 MG capsule 2 capsules 1 (one) time each day at the same time Active Magnesium Glycin ate 100 MG as directed Orally Active Multiple Vitamins-Minerals (Womens 50+ Multi Vitamin) tablet (4 sources) Multiple Vitamins-Minerals (Womens 50+ Multi Vitamin) tablet as directed Orally Active niacin 500 mg oral tablet (9 sources) Nicotinic Acid niacin 500 MG ta blet 1 (one) time each day at the same time Active [place]-3 Fatty Acids (Fish Oil) 1200 MG capsule delayed-release (4 sources) take 1 capsule by mouth every twelve hours [place]-3 Fatty Acids (Fish Oil) 1200 MG capsule delayed-release 1 capsule every 12 (twelve) hours Active traMADol hydrochloride 50 mg oral tablet (4 sources) Opioid Agonist Start: 024 take 1 tablet by mouth twice daily as needed for pain traMADol (Ultram) 50 MG tablet TAKE 1 TABLET BY MOUTH TWICE A DAY NEEDED FOR PAIN MUST LAST 30 DAYS 01/27/2024 Active vitamin k 0.1 mg oral tablet (5 sources) Vitamin K2 100 M CG as directed Orally Active vitamin k2 0.1 mg oral capsule (4 sources) Menaquinone-7 (V itamin K2) 100 MCG capsule as directed Orally Active Womens 50+ Multi Vitamin - (5 sources) Womens 50+ Multi Vitamin - as directed Orally Active zonisamide 50 mg oral capsule (9 sources) Anti-epileptic Agent take 3 capsules by [...] on Wed07/25/24 at 1458, For 1 dose 4 ml bevacizumab 25 mg/ml injection (2 sources) Vascular Endothelial Growth Factor Inhibitor Start: 05-30-2024 End: 05-30-2024 bevacizumab (Avastin) intravitreal chemo injection 1.25 mg Start: 05-30-2024 End: 05-30-2024 1.25 mg, Intravitreal, Once PRN Procedure, Starting on Wed05/30/24 at 1038, For 1 dose Lidocaine (3 sources) Antiarrhythmic, Amide Local Anesthetic Start: 04-13-2023 Lidocaine Mar, 20 mg triamcinolone acetonide 40 mg/ml injectable suspension (9 sources) Corticosteroid Start: 04-13-2023 Kenalog-40 Mar, 40 mg Problems Active Problems Problem Classification Problem Date Documented Date Episodic/Chronic Cataract (5 sources) 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; Translations: [Other [...] unspecified] Chronic Other aftercare (3 sources) Other emt intermediate (current) drug therapy; Translations: [[facility] CURRENT DRUG THERAPY] Onset: 03-12-2022 Episodic Other bone disease and musculoskeletal deformities (5 sources) Osteopenia; Translations: [Other specified disorders of bone density and structure, unspecified site] Episodic Other bone disease and musculoskeletal deformities (6 sources) Other specified disorders of bone density and structure, unspecified site; Translations: [[facility] D/O BONE DEN STRUCT UNS SITE] [...] Retinal detachments; defects; vascular occlusion; and retinopathy (10 sources) Exudative age-related macular degeneration; Translations: [Exudative [...] that caused by tuberculosis or sexually transmitteddisease) (4 sources) Blepharitis of upper and lower eyelids [...] [SARCOPENIA] Onset: 05-21-2022 Episodic Other eye disorders (4 sources) Dry eyes; Translations: [Dry eye syndrome [...] Facility Left eye Ophthalmologic chata tmenton 07-25-2024 [facility] Study observation (narrative) [facility] Optical coherence tomography study reporton 07-25-2024 [facility] Radiology Study observation (narrative) [facility] Left eye Ophthalmologic chata tmenton 05-30-2024 [facility] Rad[facility] Study observation (narrative) [facility] Optical coherence tomography study reporton 05-30-2024 [facility] Radiology Study observation (narrative) [facility] 36on 05-17-2023 36 Spoke with patient. 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 [facility] 36on 05-14-2023 36 Left message [...] back on Wednesday to follow-up regarding this. [facility] Telephoneon 05-14-2023 Telephone [phone] Naun Coffey ice 1945 F Date Provider Department Center 05/14/2023 ALLISON SKAGGS [facility] [place] Family History Problem Relation Age of Onset Other Mother Stomach cancer Father Family Status - Relation Status Age at Mother Father Normal [facility] Consulton 05-13-2023 Consult [id number] Naun Coffey ice 1945 F Date Provider Department Center 05/13/2023 ALLISON SKAGGS [facility] [place] Fl Family History Problem Relation Age of Onset Other Mother Stomach cancer Father Family Status - Relation Status Age at Mother Father Level of Service:56042 CT OFFICE/OUTPATIENT NEW MODERATE MDM 45-59 MINUTES Reason for Visit and Comments: Consult [484] - Pt is here for a CO visit for Spinal Stenosis. [facility] 36on 04-16-2023 36 LVM for pt to call jose shanks to schedule with or Dr. Lopez for Lunbar Stenosis. Imaging requested from Brent. [facility] MRI LSPINE WO CONon 02-11-20 [...] Date: 2023-02-10 07:16 Normal [facility] CALCIUMon 12-24-2022 Calcium [Mass/Vol] 9.7 mg/dL Normal 8.5-10.1 [facility] Comment on above: Performed By: #### C ADI John ####[facility] [address] [address]Dr. Holly Phillip CREATININEon 12-24-2022 Creatinine [Mass/Vol] 0.62 mg/dL Normal 0.55-1.02 [facility] Comment on above: Performed By: #### C ADI John ####[facility] [address] [id number]. Lindaban Fisher EGFR-AF LUXEMBOURGER >60 Normal >=60 [facility] Comment on above: Performed By: #### C ADI John ####[facility] [address] [place], [place] [address]Jt. Holly Fisher EGFR-NON AF LUXEMBOURGER >60 Normal >=60 [facility] Comment on above: Performed By: #### C ADI John ####[facility] [address] [place], [place] [address]Cx. Holly Fisher Covid-19 PCR (CVDTBH)on SARS-CoV-2 (COVID-19) RNA FRED+probe Ql (Unsp spec) Not detected Normal NOT DETECTED [facility] Comment on above: Result Comment: This test is not yet approved or cleared by the [place] FDA. When there are no FDA-approved or cleared tests available, and other criteria are met, FDA can make tests available under an emergency access mechanism called an Emergency Use Authorization (EUA). The EUA for this test is supported by the [place] of Health and Human Service's (HHS's) declaration [...] Performed By: #### C VDTB ####[facility] [address] [place], [place] [address]Ne. Holly Fisher Covid-19 PCR (CVDTBH)on 07-28 SARS-CoV-2 (COVID-19) RNA FRED+probe Ql (Unsp spec) Not detected Normal NOT DETECTED [facility] Comment on above: Result Comment: This test is not yet approved or cleared by the [place] FDA. When there are no FDA-approved or cleared tests available, and other criteria are met, FDA can make tests available under an emergency access mechanism called an Emergency Use Authorization (EUA). The EUA for this test is supported by the [place] of Health and Human Service's (HHS's) declaration [...] consistent with SARS-CoV-2. Performed By: #### Jose VDTBH #### [facility] [address] [address] [address] Holly Fisher CALCIUMon 06-12-2022 Calcium [Mass/Vol] 9.0 mg/dL Normal 8.5-10.1 [facility] Comment on above: Performed By: #### XAVIER HOOD ####[facility] [address] [place] [address] [address]Dr. Holly Fisher CREATININEon 06-12-2022 Creatinine [Mass/Vol] 0.65 mg/dL Normal 0.55-1.02 [facility] Comment on above: Performed By: #### XAVIER HOOD #### [facility] [address] [place] [address] Dr. Holly Fisher EGFR-AF LUXEMBOURGER >60 Normal >=60 [facility] Comment on above: Performed By: #### XAVIER HOOD #### [facility] [address] [place] [address] Dr. Holly Fisher EGFR-NON AF LUXEMBOURGER >60 Normal >=60 [facility] Comment on above: Performed By: #### XAVIER HOOD #### [facility] [address] [address] [address] Holly Fisher XR LSPINE W_OBLS AND [...] Date: 2022-05-04 08:47 Normal [facility] CBC AUTO DIFFon 03-05-2022 BASO # 0.1 103/ul Normal 0.0-0.1 [facility] Comment on above: Performed By: #### C BC ####[facility] [address] [place], [place] [address]Dr. Holly Fisher Basophils/100 WBC (Bld) 1.0 % Normal 0.2-2.0 [facility] Comment on above: Performed By: #### C BC ####[facility] [address] [place], [place] [address]Dr. Holly Fisher EO # 0.2 103/ul Normal 0.0-0.7 [facility] Comment on above: Performed By: #### C BC ####[facility] [address] [place], [place] [address]Dr. Holly Fisher Eosinophils/100 WBC (Bld) 2.4 % Normal 0.9-7.0 [facility] Comment on above: Performed By: #### C BC ####[facility] [address] [place] [address]Dr. Holly Fisher Erythrocyte distribution width (RBC) [Ratio] 14.4 % Normal 11.0-15.0 [facility] Comment on above: Performed By: #### C BC ####[facility] [address] [place], [place] [address]Dr. Holly Fisher Hematocrit (Bld) [Volume fraction] 41.1 % Normal 36.0-48.0 [facility] Comment on above: Performed By: #### C BC ####[facility] [address] [place], [place] [address]Dr. Holly Fisher Hemoglobin (Bld) [Mass/Vol] 13.4 g/dL Normal 12.0-16.0 [facility] Comment on above: Performed By: #### C BC ####[facility] [address] [place] [address]Dr. Holly Fisher IG # 0.03 10e3/ul Normal 0.00-0.03 [facility] Comment on above: Performed By: #### C BC ####[facility] [address] [place], [place] [address]Dr. Holly Fisher IG % 0.5 % Normal 0.0-0.5 [facility] Comment on above: Performed By: #### C BC ####[facility] [address] [place], [place] [address]Dr. Holly Fisher LYMPH # 1.5 103/ul Normal 1.2-3.8 [facility] Comment on above: Performed By: #### C BC ####[facility] [address] [place], [place] [address]Dr. Holly Fisher Lymphocytes/100 WBC (Bld) 24.3 % Normal 20.5-60.0 [facility] Comment on above: Performed By: #### C BC ####[facility] [address] [place], [place] [address]DrHafsa Fisher MANUAL DIFF REQ NO Normal [facility] Comment on above: Performed By: #### C BC ####[facility] [address] [place], [place] [address]Dr. Holly Fisher MCH (RBC) [Entitic mass] 30.3 pg Normal 26.7-34.0 [facility] Comment on above: Performed By: #### C BC ####[facility] [address] [place], [place] [address]Dr. Holly Fisher MCHC (RBC) [Mass/Vol] 32.6 g/dL Normal 29.9-35.2 [facility] Comment on above: Performed By: #### C BC ####[facility] [address] [place], [place] [address]Dr. Holly Fisher MCV (RBC) [Entitic vol] 93.0 fL Normal 81.0-99.0 [facility] Comment on above: Performed By: #### C BC ####[facility] [address] [place], [place] [address]DrHafsa Holly Fisher MONO # 0.5 103/ul Normal 0.3-0.8 [facility] Comment on above: Performed By: #### C BC ####[facility] [address] [place], [place] [address]Dr. Holly Fisher Monocytes/100 WBC (Bld) 7.3 % Normal 1.7-12.0 [facility] Comment on above: Performed By: #### C BC ####[facility] [address] [place], [place] [address]DrHafsa Holly Fisher NEUT # 4.1 103/ul Normal 1.4-6.5 [facility] Comment on above: Performed By: #### C BC ####[facility] [address] [place], [place] [address]Dr. Holly Fisher Neutrophils/100 WBC (Bld) 64.5 % Normal 43.0-75.0 [facility] Comment on above: Performed By: #### C BC ####[facility] [address] [place], [place] [address]Dr. Holly Fisher Platelet mean volume (Bld) [Entitic vol] 10.5 fL Normal 9.5-13.5 [facility] Comment on above: Performed By: #### C BC ####[facility] [address] [place], [place] [address]Dr. Holly Phillip PLT 253 103/ul Normal 150-450 [facility] Comment on above: Performed By: #### C BC ####[facility] [address] [place], [place] [address]Dr. Holly Phillip RBC 4.42 106/ul Normal 4.20-5.40 [facility] Comment on above: Performed By: #### C BC ####[facility] [address] [place], [place] [address]DrHafsa Fisher WBC 6.3 103/ul Normal 4.0-11.0 [facility] Comment on above: Performed By: #### C BC ####[facility] [address] [place], [place] [address]QbDr. Holly Fisher LIPID PROFILEon 03-05-2022 CHOL-HDL RATIO NORM SEE BELOW Normal [facility] Comment on above: Result Comment: 3.3 - 4.4 LOW RISK 4.4 - 7.1 AVERAGE RISK 7.1 - 11.0 MODERATE RISK >11.0 HIGH RISK Performed By: #### L IPID, CMP #### [facility] [address] [place], [place] [address] Dr. Holly Fisher Cholesterol [Mass/Vol] 263 mg/dL Critically high <=200 [facility] Comment on above: Performed By: #### L IPID, CMP #### [facility] [address] [place], [place] [address] Dr. Holly Fisher Cholesterol in HDL [Mass/Vol] 63 mg/dL Critically high 40-60 [facility] Comment on above: Performed By: #### L IPID, CMP #### [facility] [address] [place], [place] [address] Dr. Holly Fisher Cholesterol in LDL [Mass/Vol] 160.2 mg/dL Normal [facility] Comment on above: Performed By: #### L IPID, CMP #### [facility] [address] [place], [place] [address] Dr. Holly Fisher Cholesterol.total/ Cholesterol in HDL [Mass ratio] 4.2 {ratio} Normal [facility] Comment on above: Performed By: #### L IPID, CMP #### [facility] [address] [place], [place] [address] Dr. Holly Fisher HDL NORMAL > or = 60 mg/dl - LO W CARDIOVASCULAR RISK <40 mg/dl - HIGH CARDIOVASCULAR RISK Normal [facility] Comment on above: Performed By: #### L IPID, CMP #### [facility] [address] [place], [place] [address] Dr. Holly Fisher LDL CALC NORMAL SEE BELOW Normal [facility] Comment on above: Result Comment: <100 mg/dl OPTIMAL 100 - 129 mg/dl NEAR OR ABOVE OPTIMAL 130 - 159 mg/dl BORDERLINE HIGH 160 - 189 mg/dl HIGH >190 mg/dl VERY HIGH Performed By: #### L IPID, CMP #### [facility] [address] [place], [place] [address] Dr. Holly Fisher Triglyceride [Mass/Vol] 199 mg/dL Critically high <=150 [facility] Comment on above: Performed By: #### L IPID, CMP #### [facility] [address] [address] [address] Holly Fisher VLDL CALC 39.8 mg/dL Normal [facility] Comment on above: Performed By: #### L IPID, CMP #### [facility] [address] [id number] Holly Fisher MG MAMM SCREEN 3D SHERRIE CADon 03-05-2022 MG MAMM SCREEN 3D SHERRIE CAD Patient: LETTY COFFEY Exam Date: 03/05/2022 : 1945 Gender:F Ordering : DR EMELY THOMAS M.D. Admission #: [id number] Family : Order #: [id number] CLICK HERE TO VIEW EXAM RADIOLOGY REPORT [...] Treatments None Family Cancers None LOCATION: [facility] BREAST COMPOSITION: Scattered areas fibroglandular density. [...] Ortiz MD on 03/05/2022 at 09:55 Normal [facility] PROF 14(COMP METB)on 022 Albumin [Mass/Vol] 3.9 g/dL Normal 3.4-5.0 [facility] Comment on above: Performed By: #### L IPID, CMP #### [facility] [address] [address] [address] Holly Fisher Albumin/Globulin [Mass ratio] 1.1 {ratio} Normal [facility] Comment on above: Performed By: #### L IPID, CMP #### [facility] [address] [address] [address] Holly Fisher ALP [Catalytic activity/Vol] 54 U/L Normal 46-116 [facility] Comment on above: Performed By: #### L IPID, CMP #### [facility] [address] [address] [address] Holly Fisher ALT [Catalytic activity/Vol] 22 U/L Normal 14-59 [facility] Comment on above: Performed By: #### L IPID, CMP #### [facility] [address] [address] [address] Holly Fisher Anion gap [Moles/Vol] 12.5 mmol/L Normal [facility] Comment on above: Performed By: #### L IPID, CMP #### [facility] [address] [address] [address] Holly Fisher AST [Catalytic activity/Vol] 14 U/L Critically low 15-37 [facility] Comment on above: Performed By: #### L IPID, CMP #### [facility] [address] [address] [address] Holly Fisher Bilirubin [Mass/Vol] 0.4 mg/dL Normal 0.2-1.0 [facility] Comment on above: Performed By: #### L IPID, CMP #### [facility] [address] [address] [address] Holly Fisher Calcium [Mass/Vol] 8.6 mg/dL Normal 8.5-10.1 [facility] Comment on above: Performed By: #### L IPID, CMP #### [facility] [address] [address] [address] Holly Fisher Chloride [Moles/Vol] 106 mmol/L Normal 98-107 [facility] Comment on above: Performed By: #### L IPID, CMP #### [facility] [address] [address] [address] Holly Fisher CO2 [Moles/Vol] 26.8 mmol/L Normal 21.0-32.0 [facility] Comment on above: Performed By: #### L IPID, CMP #### [facility] [address] [address] [address] Holly Fisher Creatinine [Mass/Vol] 0.60 mg/dL Normal 0.55-1.02 [facility] Comment on above: Performed By: #### L IPID, CMP #### [facility] [address] [place] [address] Dr. Holly Fisher EGFR-AF LUXEMBOURGER >60 Normal >=60 [facility] Comment on above: Performed By: #### L IPID, CMP #### [facility] [address] [place] [address] Dr. Holly Fisher EGFR-NON AF LUXEMBOURGER >60 Normal >=60 [facility] Comment on above: Performed By: #### L IPID, CMP #### [facility] [address] [place] [address] Dr. Holly Fisher Globulin (S) [Mass/Vol] 3.4 g/dL Normal [facility] Comment on above: Performed By: #### L IPID, CMP #### [facility] [address] [address] [address] Holly Fisher Glucose [Mass/Vol] 98 mg/dL Normal 74-106 [facility] Comment on above: Performed By: #### L IPID, CMP #### [facility] [address] [place] [address] Dr. Holly Fisher Potassium [Moles/Vol] 4.3 mmol/L Normal 3.5-5.1 [facility] Comment on above: Performed By: #### L IPID, CMP #### [facility] [address] [address] [address] Holly Fisher Protein [Mass/Vol] 7.3 g/dL Normal 6.4-8.2 [facility] Comment on above: Performed By: #### L IPID, CMP #### [facility] [address] [address] [address] Holly Fisher Sodium [Moles/Vol] 141 mmol/L Normal 136-145 [facility] Comment on above: Performed By: #### L IPID, CMP #### [facility] [address] [address] [address] Holly Fisher Urea nitrogen [Mass/Vol] 14.0 mg/dL Normal 7.0-18.0 [facility] Comment on above: Performed By: #### L IPID, CMP #### [facility] [address] [place] [address] Dr. Holly Fisher Urea nitrogen/Creatinin e [Mass ratio] 23.3 mg/mg Normal [facility] Comment on above: Performed By: #### L IPID, CMP #### [facility] [address] [place] [place] [address] Dr. Holly Fisher XR DEXA BONE DENSITYon [...] by: YOUSUF ORTIZ Date: 2022-03-05 10:00 Normal [facility] History and Physicalon 04-27 HIM IP Note OR [employer] Rate [employer] [facility] OPERATIVE REPORTon 7 [facility] : 49[facility] REC NO: [id number] ROOM:ACCOUNT NO: [id number] ADMISSION DATE: 04/27/17PHYSICIAN: EMRE STAPLETONDATE OF PROCEDURE: [...] used to engage the membrane in a mcifh-yuo-pzti technique andthe membrane was elevated from the [...] well without complications.EMRE Llanes DABBSD:04/27/2017 9:59:31 CD/[id number]_TJob#: [id number] Doc#: [id number] [facility] Vital Signs Date Time Vital Sign Value Performing Clinician Facility 06-30-2023 09:15-0400 Body height 158.75 cm Emely Thomas Other [facility] Other 06-30-2023 09:15-0400 Body mass index (BMI) [Ratio] 30.95 kg/m2 Emely Thomas Other [facility] Other 06-30-2023 09:15-0400 Body temperature 96.5 [degF] Emely Thomas Other [facility] Other 06-30-2023 09:15-0400 Body weight 78.02 kg Emely Thomas Other [facility] Other 06-30-2023 09:15-0400 Diastolic blood pressure 76 mm[Hg] Emely Thomas Other [facility] Other 06-30-2023 09:15-0400 Systolic blood pressure 156 mm[Hg] Emely Thomas Other [facility] Other 04-13-2023 15:00-0400 Body height 158.75 cm Emely Thomas Other [facility] Other 04-13-2023 15:00-0400 Body mass index (BMI) [Ratio] 31.49 kg/m2 Emely Thomas Other [facility] Other 04-13-2023 15:00-0400 Body weight 79.38 kg Emely Thomas Other [facility] Other 04-13-2023 15:00-0400 Diastolic blood pressure 78 mm[Hg] Emely Thomas Other [facility] Other 04-13-2023 15:00-0400 Systolic blood pressure 135 mm[Hg] Emely Thomas Other [facility] Other 03-18-2023 08:40-0400 Body height 158.75 cm Ej Thomas Other [facility] Other 03-18-2023 08:40-0400 Body mass index (BMI) [Ratio] 31.67 kg/m2 Ej Thomas Other [facility] Other 03-18-2023 08:40-0400 Body weight 79.83 kg Ej Thomas Other [facility] Other 03-18-2023 08:40-0400 Diastolic blood pressure 84 mm[Hg] Ej Thomas Other [facility] Other 03-18-2023 08:40-0400 Systolic blood pressure 134 mm[Hg] Ej Thomas Other [facility] Other 01-21-2023 11:00-0400 Body height 158.75 cm Emely Thomas Other [facility] Other 01-21-2023 11:00-0400 Body mass index (BMI) [Ratio] 32.21 kg/m2 Emely Thomas Other [facility] Other 01-21-2023 11:00-0400 Body weight 81.19 kg Emely Thomas Other [facility] Other 01-21-2023 11:00-0400 Diastolic blood pressure 82 mm[Hg] Emely Thomas Other [facility] Other 01-21-2023 11:00-0400 SaO2% (BldA) [Mass fraction] 97 % Emely Thomas Other [facility] Other 01-21-2023 11:00-0400 Systolic blood pressure 142 mm[Hg] Emely Thomas Other [facility] Other Encounters Encounter Date Encounter Type Care Provider Facility Start: 08-21-2024 End: 08-21-2024 ambulatory Gianna Kelley MD Facility: [facility] Start: 07-25-2024 End: 07-25-2024 Bamboo flowsheet Dusty Nassar DO Work Phone: [facility] Start: 07-25-2024 End: 07-25-2024 Bamboo flowsheet Dusty Nassar DO Work Phone: [facility] Start: 07-25-2024 End: 07-25-2024 Clinical Support Dusty Nassar DO Work Phone: [facility] Comment on above: Macular Degeneration ; Retinal Injection Start: 05-30-2024 End: 05-30-2024 Bamboo flowsheet Dusty Nassar DO Work Phone: [facility] Start: 05-30-2024 End: 05-30-2024 Bamboo flowsheet Dusty D Zahler DO Work Phone: [facility] Start: 05-30-2024 End: 05-30-2024 ambulatory DUSTY D [...] 06-30-2023 End: 06-30-2023 ambulatory Emely Thomas Other [facility] Other Start: 06-30-2023 Office outpatient vi sit 15 minutes Emely Thomas [facility] Start: 05-18-2023 End: 05-18-2023 ambulatory Emely Thomas Other [facility] Other Start: 05-18-2023 Telephone encounter Emely Thomas [facility] Start: 05-13-2023 End: 05-14-2023 ambulatory [facility] Start: 05-13-2023 End: 05-13-2023 ambulatory [facility] Start: 04-16-2023 End: 04-17-2023 ambulatory [facility] Start: 04-13-2023 End: 04-13-2023 ambulatory Emely Thomas Other [facility] Other Start: 04-13-2023 Office outpatient vi sit 15 minutes Emely Thomas [facility] Start: 04-05-2023 End: 04-05-2023 ambulatory Ej Martha Other [facility] Other Start: 04-05-2023 Telephone encounter Ej Thomas [facility] Start: 03-18-2023 End: 03-18-2023 ambulatory Ejmojgan Thomas Other [facility] Other Start: 03-18-2023 Office outpatient ne w 30 minutes Ej Thomas [facility] Start: 02-09-2023 End: 02-10-2023 ambulatory NARENDRANATH LAKSHMIPATHY . Facility:[facility] Start: 02-01-2023 ambulatory NARENDRANATH LAKSHMIPATHY . Facility:[facility] Start: 01-28-[address] EMELY THOMAS Facil ity:[facility] Start: 01-28-2023 End: 01-29-2023 ambulatory NARENDRANATH LAKSHMIPATHY . Facility:[facility] Start: 01-21-2023 End: 01-21-2023 ambulatory Emely Thomas Other [facility] Other Start: 01-21-2023 Office outpatient vi sit 15 minutes Emely Thomas [facility] Start: 01-12-2023 End: 01-12-2023 ambulatory NARENDRANATH LAKSHMIPATHY . Facility:[facility] Start: 12-31-2022 End: 01-01-[address] EMELY THOMAS Facility:[facility] Start: 12-28-2022 End: 12-28-[address] EMELY THOMAS Facility:[facility] Start: 12-24-2022 End: 12-25-[address] EMELY THOMAS Facility:[facility] Start: 10-07-2022 End: 10-08-2022 ambulatory SHAWNA RUIZ . Facility:[facility] Start: 09-03-2022 Encounter for preprocedural laboratory examination DR YULI LEES . [facility] Start: 09-01-2022 End: 09-01-[address] YULI LEES . Facility:[facility] Start: 08-28-2022 End: 08-29-[address] EMELY THOMAS Facility:[facility] Start: 08-28-2022 End: 08-29-2022 Encounter for preprocedural laboratory examination DR EMELY THOMAS Facility:[facility] Start: 08-11-2022 End: 08-11-[address] YULI LEES . Facility:[facility] Start: 08-08-2022 Encounter for preprocedural cardiovascular examination SHAWNAABRAHAM RUIZ . [facility] Start: 08-07-2022 End: 08-08-[address] [...] Facility:[facility] Start: 04-27-2017 End: 04-27-2017 Ambulatory EMRE Mario Alberto [facility] Procedures Date Procedure Procedure Detail Performing Clinician Start: 07-25-2024 Intravitreal njx pharmacologic agt spx Dusty Nassar DO Work Phone: Start: 07-25-2024 Computerized ophthalmic imaging retina Dusty Lauren Nassar DO Work Phone: Start: 05-30-2024 Intravitreal njx pharmacologic agt spx Dusty Nassar DO Work Phone: Start: 05-30-2024 Computerized ophthalmic imaging retina Dusty Lauren Nassar DO Work Phone: Start: 05-30-2024 End: 05-30-2024 Oph medical xm&eval comprhnsv estab pt 1/> 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 eye with active choroidal neovascularization (HCC) (CMS/HCC) Dusty Nassar DO Work Phone: Comment on above: Follow-up Start: 04-27-2017 DISCHARGE PATIENT PATRICE SANTAMARIA DARA Start: 04-27-2017 BEDREST EMRE BYNUM Start: 04-27-2017 Continuous pulse oximetry EMRE STAPLETON Start: 04-27-2017 ENCOURAGE DEEP BREATHING AND COUGHING EMRE STAPLETON Start: 04-27-2017 NOTIFY PHYSICIAN (SPECIFY) EMRE STAPLETON Start: 04-27-2017 NURSING COMMUNICATION Jose STAPLETON Start: 04-27-2017 NURSING OXYGEN ORDERS/INSTRUCTIONS EMRE STAPELTON Start: 04-27-2017 VITAL SIGNS EMRE BYNUM Management of drug regimen Emely Thomas Other Screening for malignant neoplasm of colon Emely Thomas Other Plan of Treatment Date Care Activity Detail Author Start: 05-24-2025 End: 05-24-2025 Patient encounter procedure 05/24/2025 10:00 AM EDT Office Visit [facility] [address] [place] [address] Kriss Velez DO [address] [place] [address] [facility] Start: 07-25-2024 End: 07-25-2024 Clinical Support 07/25/2024 1:45 PM EDT Clinical Support [facility] [address] [place] [address] Dusty Nassar DO [address] [place] [address] Arrived [facility] Comment on above: Arrived Start: 05-30-2024 End: 05-30-2024 Clinical Support 05/30/2024 9:45 AM EDT Clinical Support [facility] [address] [place] [address] Dusty Nassar DO [address] [place] [address] Arrived [facility] Comment on above: Arrived Start: 05-28-2024 Influenza vaccination Influenza Vacc ine (#1) [facility] Start: 02-26-2023 ambulatory Ambulatory Facility:[facility] Intravitreal Injection, Pharmacologic Agent - OD - Right Eye Intravitreal Injection, Pharmacologic Agent - OD - Right Eye Ophthalmology Routine 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 eye with active choroidal neovascularization (HCC) ([facility]) Ordered: 07/25/2024 [facility] Work Phone: Comment on above: Ordered: 07/25/2024 Intravitreal Injection, Pharmacologic Agent - OD - Right Eye Intravitreal Injection, Pharmacologic Agent - OD - Right Eye Ophthalmology Routine 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 eye with active choroidal neovascularization (HCC) ([facility]) Ordered: 05/30/2024 [facility] Work Phone: Comment on above: Ordered: 05/30/2024 Immunizations Immunization Date Immunization Notes Care Provider Fa cility 07-26-2023 influenza virus vacc ine, unspecified formulation Dusty Nassar DO Work Phone: [facility] Payers Date Payer Category Payer [facility] [id number] 2018 Unknown 2017 Medicare [id number] 2014 Unknown [id number] 1959 Blue Cross Blue Shield [id number] 2.16840.1.161886. 1957 Medicare [id number] 2.16840.1.046609.19 1959 Unknown [id number] 1947 Unknown [id number] 2.16.840.1.274285.3.579.2. 593 1947 Unknown [id number] 2.16.840.1.459622.3.579.2. 593 1947 Unknown [id number] 2.16.840.1.497874.3.579.2. 593 1947 Unknown [id number] 2.16.840.1.352385.3.579.2. 593 1947 Unknown [id number] 2.16.840.1.219317.3.579.2. 593 1947 Unknown [id number] 2.16.840.1.141399.3.579.2. 593 1947 Unknown [id number] 2.16.840.1.852527.3.579.2. 593 1947 Unknown [id number] 2.16.840.1.441060.3.579.2. 593 1947 Unknown [id number] 2.16.840.1.759320.3.579.2. 593 1947 Unknown [id number] 2.16.840.1.125411.3.579.2. 593 1947 Unknown [id number] 2.16.840.1.497442.3.579.2. 593 1947 Unknown [id number] 2.16.840.1.221079.3.579.2. 593 1947 Unknown [id number] 2.16.840.1.125809.3.579.2. 593 1947 Unknown [id number] 2.16.840.1.140317.3.579.2. 593 1947 Unknown [id number] 2.16.840.1.132447.3.579.2. 593 1947 Unknown [id number] 2.16.840.1.139076.3.579.2. 593 1947 Unknown [id number] 2.16.840.1.356662.3.579.2. 593 1947 Unknown [id number] 2.16.840.1.637741.3.579.2. 593 1947 Unknown [id number] 2.16.840.1.747393.3.579.2. 593 1947 Unknown [id number] 2.16.840.1.991636.3.579.2. 593 1947 Unknown [id number] 2.16.840.1.376390.3.579.2. 593 1947 Unknown [id number] 2.16.840.1.873726.3.579.2. 593 1947 Unknown [id number] 2.16.840.1.097516.3.579.2. 593 1947 Unknown [id number] 2.16.840.1.457434.3.579.2. 593 1947 Unknown [id number] 2.16.840.1.949238.3.579.2. 593 1947 Unknown [id number] 2.16.840.1.540065.3.579.2. 1259 1947 Unknown [id number] 2.16.840.1.844131.3.579.2. 1259 1947 Unknown [id number] 2.16.840.1.964456.3.579.2. 1259 1947 Unknown [id number] 2.16.840.1.344667.3.579.2. 1259 1947 Unknown [id number] 2.16.840.1.638312.3.579.2. 1259 1947 Unknown [id number] 2.16.840.1.929932.3.579.2. 1259 1947 Unknown [id number] 2.16.840.1.793326.3.579.2. 1259 1947 Unknown [id number] 2.16.840.1.328326.3.579.2. 1259 1947 Unknown [id number] 2.16.840.1.834455.3.579.2. 1259 1947 Unknown [id number] 2.16.840.1.595890.3.579.2. 1259 1947 Unknown [id number] 2.16.840.1.968178.3.579.2. 196 Social History Date Type Detail Facility Unknown if ever smoked [facility] Other Start: 04-05-2024 End: 05-30-2024 Sex Assigned At [facility] Other Start: 10-11-2023 Tobacco smoking status PAIS Never smoked tobacco [facility] Start: 10-11-2023 Tobacco use and exposure Smokeless tobacco non-user [facility] Start: 04-05-2024 End: 05-30-2024 History of Social function [facility] Start: 1945 Sex assigned at Not on file [facility] Clinical Notes 03-05-2022 to 07-25-2024 Dusty Nassar, DO - 07/25/2024 1:45 PM EDTJociaran Nassar, DO - 05/30/2024 9:45 AM EDT Note Date & Type Note Facility 07-25-2024 Note Time Out 07/25/2024. 2:58 PM. Confirmed correct patient, procedure, site, and patient consented. Anesthesia Topical anesthesia was used. Anesthetic medications included Lidocaine 2%, Proparacaine 0.5%. Procedure Preparation included 5% betadine to ocular surface, eyelid speculum. Injection: 2 mg aflibercept 2 MG/0.05ML Route: Intravitreal, Site: Left Eye ND: [id number], Lot: [id number], Expiration date: 08/27/2025, Waste: 0 mL Post-op [...] increased pain, redness, decreased vision or concerns. [facility] 07-25-2024 Note Right Eye Quality was good. Scan locations included subfoveal. Progression has been stable. Findings include abnormal foveal contour, pigment epithelial detachment. Left Eye Quality was good. Scan locations included subfoveal. Progression has been stable. Findings include abnormal foveal contour. [facility] 07-25-2024 History of Presen t illness Narrative [...] MG/0.05ML Route: Intravitreal, Site: Left Eye [facility]: 06262-478-86, Lot: [id number], Expiration date: 08/27/2025, Waste: 0 mL Post-op [...] vision or concerns. documented in this encounter [facility] 05-30-2024 Note Time Out 05/30/2024. 10:38 AM. Confirmed correct patient, procedure, site, and patient consented. Anesthesia Topical anesthesia was used. Anesthetic medications included Lidocaine 2%, Proparacaine 0.5%. Procedure Preparation included 5% betadine to ocular surface, eyelid speculum. Injection: 1.25 mg bevacizumab 100 MG/4ML Route: Intravitreal, Site: Left Eye ND: [id number], Lot: [id number], Expiration date: 08/14/2024, Waste: 0 mL Post-op Post injection exam [...] increased pain, redness, decreased vision or concerns. [facility] 05-30-2024 Note Right Eye Quality was good. Scan locations included subfoveal. Progression has improved. Findings include abnormal foveal contour, intraretinal fluid, pigment epithelial detachment. Left Eye Quality was good. Scan locations included subfoveal. Progression has been stable. Findings include abnormal foveal contour. [facility] 05-30-2024 History of Presen t illness Narrative Images from the original note were not included. Assessment/Plan Diagnoses and all orders for this visit: 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 eye with active choroidal neovascularization (HCC) (CMS/HCC) - OCT, Retina - OU - Both Eyes - Intravitreal Injection, Pharmacologic Agent - OS - Left Eye - bevacizumab (Avastin) intravitreal chemo injection 1.25 mg OCT, Retina - OU - Both Eyes Right Eye Quality was good. Scan locations included subfoveal. Progression has improved. Findings include abnormal foveal contour, intraretinal fluid, pigment epithelial detachment. Left Eye Quality was good. Scan locations included subfoveal. Progression has been stable. Findings include abnormal foveal contour. Linked Images Intravitreal Injection, Pharmacologic Agent - OS - Left Eye Time Out 05/30/2024. 10:38 AM. Confirmed correct patient, procedure, site, and patient consented. Anesthesia Topical anesthesia was used. Anesthetic medications included Lidocaine 2%, Proparacaine 0.5%. Procedure Preparation included 5% betadine to ocular surface, eyelid speculum. Injection: 1.25 mg bevacizumab 100 MG/4ML Route: Intravitreal, Site: Left Eye [facility]: [id number], Lot: [id number], Expiration date: 08/14/2024, Waste: 0 mL Post-op Post injection exam [...] increased pain, redness, decreased vision or concerns. Right posterior capsular opacification - PCO ODSubjective Patient ID: Letty Coffey is a 78 y.o. female. Chief Complaint Follow-up HPI 8 weeks follow up PRANAV, OCT mac, Avastin left eye and management of 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 eye with active choroidal neovascularization (HCC) (CMS/HCC), Advanced atrophic nonexudative age-related macular degeneration of both eyes without subfoveal involvement. Pt notes vision is stable and has no other issues. Uses OTC artifical tears as needed. Last edited by Santiago Howell on 05/30/2024 9:56 AM. No current outpatient medications on file. (Ophthalmic Agents) No current facility-administered medications for this visit. (Ophthalmic Agents) Current Outpatient Medications (Other) Medication Sig Dispense Refill aspirin 81 MG EC tablet 1 (one) time each day at the same time baclofen (Lioresal) 10 MG tablet every 12 (twelve) hours calcium carbonate (Super Calcium) 1500 (600 Ca) MG tablet 1 tablet with meals Orally Once cholecalciferol (Vitamin D3) 25 MCG (1000 UT) tablet 1 (one) time each day at the same time denosumab (Prolia) 60 MG/ML solution prefilled syringe as directed Subcutaneous Nvmgjmxuwyv-Dnczqywnids-PRA (Kzcscc-Susjp-QQS-Double Str) 500-400-167 MG tablet every 12 (twelve) hours losartan (Cozaar) 25 MG tablet Oral for 90 Days Magnesium Glycinate 100 MG capsule 2 capsules 1 (one) time each day at the same time Menaquinone-7 (Vitamin K2) 100 MCG capsule as directed Orally Multiple Vitamins-Minerals (PreserVision AREDS 2) capsule 1 (one) time each day at the same time Multiple Vitamins-Minerals (Womens 50+ Multi Vitamin) tablet as directed Orally niacin 500 MG tablet 1 (one) time each day at the same time [place]-3 Fatty Acids (Fish Oil) 1200 MG capsule delayed-release 1 capsule every 12 (twelve) hours traMADol (Ultram) 50 MG tablet TAKE 1 TABLET BY MOUTH TWICE A DAY NEEDED FOR PAIN MUST LAST 30 DAYS zonisamide (Zonegran) 50 MG capsule TAKE 3 CAPSULES BY MOUTH EVERY DAY AT BEDTIME No current facility-administered medications for this visit. (Other) Past Medical History: Diagnosis Date Arthritis Cataract Hypertension (CMS/HCC) Macular degeneration No Known Allergies Review of Systems Objective Base Eye Exam Visual Acuity (Snellen - Linear) Right Left Dist cc 20/70 20/40 Correction: Glasses Tonometry (Applanation, 10:35 AM) Right Left Pressure 16 16 Pupils Pupils Right PERRL Left PERRL Visual Soler Left Right Full Full Extraocular Movement Right Left Full Full Neuro/Psych Oriented x3: Yes Dilation Both eyes: 1.0% Mydriacyl @ 10:01 AM Slit Lamp and Fundus Exam External Exam Right Left External Brow ptosis Brow ptosis Slit Lamp Exam Right Left Lids/Lashes Blepharitis, Dermatochalasis - upper lid, Dermatochalasis - lower lid, Ptosis Blepharitis, Dermatochalasis - upper lid, Dermatochalasis - lower lid, Ptosis Conjunctiva/Sclera White and quiet White and quiet Cornea Decreased tear film Decreased tear film Anterior Chamber Deep and quiet Deep and quiet Iris Round and reactive Round and reactive Lens Posterior chamber intraocular lens, 2+ Posterior capsular opacification Posterior chamber intraocular lens, Open posterior capsule Anterior Vitreous Normal Normal Fundus Exam Right Left Disc Normal Normal Macula Soft drusen, Retinal pigment epithelial detachment, Mottling Soft drusen, Mottling Vessels Normal Normal Periphery Normal Normal Refraction Wearing Rx Sphere Cylinder [place] Add Right +2.50 -2.00 077 +3.25 Left +2.50 -2.50 115 +3.25 Assessment/Plan Posterior Capsular Opacity right eye (OD) (Posterior Capsule Opacification) Can be observed without intervention if PCO is not visually significant. Nd:YAG laser capsulotomy may be considered if impairment of vision rises to a level that dose not meet the patient's functional needs or interferes with activities of daily living. Risks, benefits and alternatives to the procedure will be reviewed. If the patient has undergone Nd:YAG laser capsulotomy, they are to notify their nurse esthetician promptly if they have a significant change in symptoms, such as flashes of light (photopsia), an increase in floaters, loss of visual field or decrease in visual acuity. documented in this encounter [facility] 06-30-2023 Evaluation note Encounter Date Diagnosis Assessment Notes Jun, Acute non-recurrent maxillary sinusitis (ICD-10 - J01.00) Finish antibiotic, stay hydrated. Ok for NSAIDs for head pressure. Call if no improvement. [facility] 08-17-2023 NoteSUBJECTIVE: Chief complaint: Back and right leg pain. History of present illness: Consultation referred by pain management, Dr. Layton of [facility]. Patient reports chronic low back pain [...] found for any pre (more content not included)...[facility]08-17-2023 NoteSubjective: HPI: Letty Coffey is a [...] and assess x-rays of back. Malina Mckeon MS3[facility]07-18-2023 Evaluation note* Encounter Date Diagnosis Assessment [...] is busy with other appts right now. [facility] 06-22-2023 Evaluation note* Encounter Date Diagnosis [...] long as possible before considering surgical intervention. [facility] 05-04-2023 NoteCONSULTATION CONSULTATION DATE: 01/28/2023 TO: [...] our patients to inform us about any lgnm-eko-zwzobyw medications or herbal remedies/nutritional supplements/alternative remedies. 2. [...] with their primary care provider.[facility] [id number] Evaluation note * Encounter Date Diagnosis Assessment Notes Treatment Notes Treatment Clinical Notes Dec, Essential (primary) hypertension (ICD-10 - I10) new problem. rx handwritten. f/u 6 weeks. Dec, Other chronic pain (ICD-10 - G89.29) Dec, Pain in left shoulder (ICD-10 - M25.512) PT order given to pt. [facility] 04-06-2023 NoteCONSULTATION CONSULTATION DATE: 12/31/2022 TO: [...] our patients to inform us about any egsv-nvp-imvlxdl medications or herbal remedies/nutritional supplements/alternative remedies. 2. [...] with their primary care provider.[facility] [id number] Note CONSULTATION PROCEDURE DATE: 10/07/2022 PREOPERATIVE DIAGNOSIS: [...] Patient tolerated the procedure well.[facility] [id number] NoteCONSULTATION CONSULTATION DATE: 10/07/2022 HISTORY OF PRESENT [...] sitting does decrease her pain. Medications include aeri-pau-grwdrsh Tylenol and the use of Salonpas patches. [...] Patient agrees with this plan.[facility] [id number] NoteCONSULTATION CONSULTATION DATE: 07/30/2022 This is a [...] up at the office thereafter.[facility] [id number] NoteCONSULTATION CONSULTATION DATE: 06/25/2022 HISTORY OF PRESENT [...] in agreement with this plan.[facility] [id number] NoteCONSULTATION CONSULTATION DATE: 05/19/2022 CHIEF COMPLAINT: Right [...] proceed. CC: Emely Thomas M.D.[facility] [id number] NoteCONSULTATION PROCEDURE DATE: 04/28/2022 PREOPERATIVE DIAGNOSIS: Right [...] followed up in the office.[facility] [id number] NoteCONSULTATION CONSULTATION DATE: 04/28/2022 CHIEF COMPLAINT: Right [...] proceed. CC: Emely Thomas M.D.[facility] [id number] NotePROCEDURE: XR HIP RT 2 3V W PELVIS COMPARISON: None. HISTORY: Arthropathy FINDINGS: BONES:No acute fracture or dislocation. Mild osteoarthropathy with marginal osteophyte formation. 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 No visible soft tissue swelling. EFFUSION:None visible. OTHER: Negative. 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 Electronically authenticated by: YOUSUF ORTIZ Date: 2022-03-05 10:09[facility] noteNo InformationNonorth [facility] [employer] Other evaluation note* Diagnosis 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 eye with active choroidal neovascularization (CMS/HCC)- Primary documented in this encounter [facility] Healthcare[facility] note* Diagnosis 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 eye with active choroidal neovascularization (HCC) (CMS/HCC)- Primary Right posterior capsular opacification Unspecified after-cataract documented in this encounter [facility] HealthcareHistory general Narrative - Reported* Type Description Date Medical History Osteopenia Medical History COVID Medical History Hyperlipemia Medical History Menopause Medical History Cardiac murmur Medical History Elevated blood pressure reading Medical History Hip pain, right Medical History Medication management Surgical History APPENDECTOMY Surgical History ERINN AND BSO Surgical History TONSILLECTOMY Surgical History TYMPANOPLASTY Surgical History CHOLESTEOTOMA Surgical History COLONOSCOPY Hospitalization History SEE [facility] [place] Other History general Narrative - Reported* Type [...] ear growth surgery Hospitalization History SEE [facility] [place] Other Summary Purpose Family History No Family History Records FoundNo Family History Records FoundNo Family History Records FoundNo Family History Records FoundNo Family History Records Found Advance Directives No Advanced Directives Records FoundNo Advanced Directives Records FoundNo Advanced Directives Records FoundNo Advanced Directives Records FoundNo Advanced Directives Records Found Additional Source Comments INFORMATION SOURCE (unrecogn ized section and content) DATE CREATED AUTHOR 03/23/2018 [facility] DATE CREATED AUTHOR AUTHOR'S ORGANIZ ATION 02/10/2023 [facility] DATE CREATED AUTHOR AUTHOR'S ORGANIZ ATION 05/19/2023 [facility] DATE CREATED AUTHOR AUTHOR'S ORGANIZ ATION 07/27/2024 [facility] EPIC DATE CREATED AUTHOR AUTHOR'S ORGANIZ ATION 08/27/2024 [facility] REASON FOR VISIT (unrecogniz ed section and content) Reason Comments Macular Degeneration Retinal Injection Reason Comments Follow-up Care Teams (unrecognized sec tion and content) Model Dresser Relationship Specialty Start Date End Date Wiley Price MD [address] [place] [address] [phone] PCP - General Family Medicine 12/10/23 Kimber Price MD [address] [place] [address] [phone] Referring Physician Family Medicine 10/15/23 Model Dresser Relationship Specialty Start Date End Date Wiley Price MD [address] [place] [address] [phone] PCP - General Family Medicine 12/10/23 Kimber Price MD [address] [place] [address] [phone] Referring Physician Family Medicine 10/15/23 Model Dresser Relationship Specialty Start Date End Date Wiley Price MD [address] [place] [address] [phone] PCP - General Family Medicine 12/10/23 Kimber Price MD [address] [place] [address] [phone] Referring Physician Family Medicine 10/15/23 FOR RECORDS [...] PRIMARY CLINICAL RECORDS. [facility] [employer] [facility]. provides no warranty or guarantee of the accuracy or completeness of information in this document.
--- NOTE | 2024-09-18 11:13 | PM.CN ---
Consult Note: HPI Data of Consult Patient: known to practice within the last 3 years Consult date: 09/18/24 Requesting Physician: Gianna Kelley MD Primary Care Provider: KIEL ALMODOVAR Consult Narrative Reason for consult: right low back pain Narrative: 79yof who presents for assessment. notes significant relief of radiating pain after recent lumbar tfesi. notes residual right low back pain. continues in a series of provider directed home exercise program >6 weeks, with limited benefit. uses pain meds as needed. denies adverse med side effects. cc:: CC: Gianna Kelley MD Review of Systems ROS Status of ROS 10 or more systems reviewed and unremarkable except as noted in history and below [facility] Medical History Osteoarthritis ?M19.90 - Unspecified osteoarthritis, unspecified site (ICD-10) Low back pain ?M54.50 - Low back pain, unspecified (ICD-10) Hiatal hernia ?K44.9 - Diaphragmatic hernia without obstruction or gangrene (ICD-10) Obesity ?E66.9 - Obesity, unspecified (ICD-10) Heart murmur ?R01.1 - Cardiac murmur, unspecified (ICD-10) Surgical History History of ear surgery ?Z98.890 - Other specified postprocedural states (ICD-10) History of phacoemulsification of cataract with intraocular lens implantation ?Z98.49 - Cataract extraction status, unspecified eye (ICD-10) ?Z96.1 - Presence of intraocular lens (ICD-10) Hx of appendectomy ?Z90.49 - Acquired absence of other specified parts of digestive tract (ICD-10) H/O: hysterectomy ?Z90.710 - Acquired absence of both cervix and uterus (ICD-10) History of tonsillectomy ?Z90.89 - Acquired absence of other organs (ICD-10) Meds Home Medications and Allergies Home Medications ?Medication ?Instructions ?Recorded ?Confirmed ?Type aspirin 81 mg tablet,delayed 81 mg PO DAILY 02/26/23 09/11/24 History release (Adult Low Dose Aspirin) denosumab 60 mg/mL subcutaneous 60 mg subcut .Q6 MONTHS 02/26/23 09/11/24 History syringe (Prolia) niacin 500 mg tablet 500 mg PO DAILY 02/26/23 09/11/24 History baclofen 10 mg tablet 10 mg PO BID 03/01/23 09/11/24 History losartan 25 mg tablet 25 mg PO DAILY 03/01/23 09/11/24 History antiarthritic combination no.2 900 2 mg PO DAILY 07/15/23 09/11/24 History mg tablet (glucosamine-chondroitin) calcium 600 mg (as 2 cap PO DAILY 07/15/23 09/11/24 History carbonate)-vitamin D3 5 mcg (200 unit) capsule (Calcium 600 + D(3)) magnesium glycinate 100 mg (as 100 mg PO BID 07/15/23 09/11/24 History glycinate) tablet (Mag Glycinate) multivitamin (Daily Multi-Vitamin 1 tab PO DAILY 07/15/23 09/11/24 History tablet) omega 1-hwd-ggv-fish oil 1,200 mg 2 cap PO DAILY 07/15/23 09/11/24 History (144 mg-216 mg) capsule (Fish Oil) vit C 250 mg-vit E 90 mg-zinc 40 1 tab PO BID 07/15/23 09/11/24 History mg-copper 1 so-nbzqdd-zoinns capsule (PreserVision AREDS-2) vit C 250 mg-vit E 90 mg-zinc 40 1 tab PO BID 07/15/23 09/11/24 History mg-copper 1 ia-eaatpu-kdshwt capsule (PreserVision AREDS-2) vitamin K2 100 mcg capsule 100 mcg PO DAILY 07/15/23 09/11/24 History cholecalciferol (vitamin D3) 50 2,000 unit PO BID 01/11/24 09/11/24 History mcg (2,000 unit) capsule (Vitamin D3) tramadol 50 mg tablet 50 mg PO BID PRN pain #60 tabs 06/02/24 09/11/24 Rx zonisamide 50 mg capsule 150 mg (3 x 50 mg) PO .qhs #270 06/30/24 09/11/24 Rx caps tramadol 50 mg tablet See Rx Instructions .Route 08/18/24 09/11/24 Rx .COMPLEX PRN pain #75 tabs baclofen 10 mg tablet 10 mg PO BID PRN muscle spasm #180 09/13/24 Rx tabs Allergies Allergy/AdvReac Type Severity Reaction Status Date / Time No Known Drug Allergies Allergy Verified 09/11/24 09:52 Exam Narrative Exam Narrative: Psych-alert and oriented x 3. Attentive and appropriate, constitutionally normal, displays normal mood and affect per situation.? There are no obvious deficits in memory, reasoning, or intellect.? Skin-no obvious rashes, bruising, erythema noted to the patient's area of pain. Extremities- extremities are warm with minimal edema and palpable pulses. Lumbar-no significant tenderness to palpation noted in the lumbar spine and paraspinal musculature.? Pain is elicited with extension, and lateral rotation of the lumbar spine. Range of motion is slightly diminished with these motions due to pain. Sacroiliac - tender to palpation over right PSIS. Positive Rupesh's on the right. Positive thigh thrust on the right. Coordination remains intact.? Gait remains non-antalgic. Assessment and Plan Assessment and Plan (1) Sacroiliitis: Plan 79yof who presents for assessment. i am glad that she had significant relief after recent lumbar tfesi. suspect that residual right low back and hip pain is a consequence of right sij pathology. given symptoms and exam findings, prudent to attempt right sij injection under fluoroscopic guidance. she is in agreement. meds reviewed, no changes. follow up after procedure.
== END 2024-09-18 10:36 ==
LOC: PM 10:35
PROVIDERS: PCP Nurse Practitioner Family; Visit Provider Anesthesiology
DX: M46.1 Sacroiliitis, not elsewhere classified (principal)
CPT/HCPCS: G0463

== ENCOUNTER 2024-09-25 08:00 | Day surgery (SDC) | payer MEDICARE, BC, SELFPAY ==
[2024-09-25 08:21] VITALS: BP 144/79; PULSE 77; TEMP 36.2; O2SAT 99
--- OUTSIDE RECORDS SUMMARY | 2024-09-25 08:22 | XMS_ITS | CCD ---
Author Organization [facility] Care Team Providers Care Import Clerk Name Role Phone EMRE STAPLETON Unavailable Unavailable EMRE STAPLETON Unavailable Unavailable KAT NOBLE Unavailable Unavailable Luis Thomas Unavailable MARTHA, DR LUIS Becker Primary Care Unavailable MARTHA, DR LUIS Becker Admitting Unavailable MARTHA, DR LUIS Becker Attending Unavailable LEES ., DR YULI Nguyen Attending Unavailable LEES ., DR YULI Nguyen Admitting Unavailable LEES ., DR YULI Nguyen Consulting Unavailable MARTHA, DR LUIS Becker Primary Care Unavailable JOSE MANUEL LUNA Consulting Unavailable LAKSHMIPATHY ., MORRIS Consulting Johanny vailable LAKSHMIPATHY ., MORRIS Admitting Johanny vailable LAKSHMIPATHY ., MORRIS Attending Johanny vailable MARTHA, DR LUIS Becker Primary Care Unavailable MARTHA, DR LUIS Becekr Admitting Unavailable MARTHA, DR LUIS Becker Primary Care Unavailable MARTHA, DR LUIS Becker Attending Unavailable THOMAS, DR LUIS Becker Consulting Unavailable MARTHA, DR LUIS Becker Primary Care Unavailable YOANA ., DR YULI Nguyen Consulting Unavailable LEES ., DR YULI Nguyen Attending Unavailable LEES ., DR YULI Nguyen Admitting Unavailable LEES ., DR YULI Nguyen Consulting Unavailable LEES ., DR YULI Nguyen Admitting Unavailable LEES ., DR YULI Nguyen Attending Unavailable MARTHA, DR LUIS Becker Primary Care Unavailable LAKSHMIPATHY ., MORRIS Admitting Johanny vailable LAKSHMIPATHY ., MORRIS Attending Johanny vailable MARTHA, DR LUIS Becker Primary Care Unavailable ANGEL, DR YOUSUF Ferguson Consulting Unavailable MARTHA, DR LUIS Becker Admitting Unavailable MARTHA, DR LUIS Becker Primary Care Unavailable MARTHA, DR LUIS Becker Attending Unavailable MARTHA, DR LUIS Becker Consulting Unavailable MARTHA, DR LUIS Becker Primary Care Unavailable LEES ., DR YULI Nguyen Attending Unavailable LEES ., DR YULI Nguyen Consulting Unavailable LEES ., DR YULI Nguyen Admitting Unavailable THOMAS, DR LUIS Becker Primary Care Unavailable LAKSHMIPATHY ., NARENDRANATH Admitting Johanny vailable LAKSHMIPATHY ., NARENDRANATH Attending Johanny vailable RUIZ ., SHAWNA Consulting Unavailable LAKSHMIPATHY ., NARENDVINAY Consulting Johanny vailable LEES ., DR YULI Nguyen Attending Unavailable LEES ., DR YULI Nguyen Admitting Unavailable THOMAS, DR LUIS Becker Primary Care Unavailable THOMAS, DR LUIS Becker Consulting Unavailable LEES ., DR YULI Nguyen Consulting Unavailable RUIZ ., SHAWNA Consulting Unavailable LEES ., DR YULI Nguyen Attending Unavailable LEES ., DR YULI Nguyen Admitting Unavailable LEES ., DR YULI Nguyen Consulting Unavailable THOMAS, DR LUIS Becker Primary Care Unavailable JILL STALLINGS Consulting Unava ilable LEES ., DR YULI Nguyen Consulting Unavailable LEES ., DR YULI Nguyen Admitting Unavailable LEES ., DR YULI Nguyen Attending Unavailable THOMAS, DR LUIS Becker Primary Care Unavailable LEES ., DR YULI Nguyen Admitting Unavailable LEES ., DR YULI Nguyen Attending Unavailable LEES ., DR YULI Nguyen Consulting Unavailable THOMAS, DR LUIS Becker Primary Care Unavailable RUIZ ., SHAWNA Consulting Unavailable LEES ., DR YULI Nguyen Attending Unavailable LEES ., DR YULI Nguyen Admitting Unavailable THOMAS, DR LUIS eBcker Primary Care Unavailable LEES ., DR YULI Nguyen Admitting Unavailable LEES ., DR YULI Nguyen Attending Unavailable PINSON, DR YOUSUF Ferguson Consulting Unavailable THOMAS, DR LUIS Becker Primary Care Unavailable LEES ., DR YULI Nguyen Consulting Unavailable THOMAS, DR LUIS Becker Primary Care Unavailable THOMAS, DR LUIS Becker Admitting Unavailable THOMAS, DR LUIS Becker Attending Unavailable THOMAS, DR LUIS Becker Consulting Unavailable THOMAS, DR LUIS Becker Admitting Unavailable THOMAS, DR LUIS Becker Primary Care Unavailable THOMAS, DR LUIS Becker Attending Unavailable THOMAS, DR LUIS Becker Consulting Unavailable LAKSHMIPATHY ., NARENDRANATH Admitting Johanny vailable LAKSHMIPATHY ., NARENDRANATH Attending Johanny vailable THOMAS, DR LUIS Becker Primary Care Unavailable LAKSHMIPATHY ., NARENDRANATH Consulting Johanny vailable LAKSHMIPATHY ., NARENDRANATH Admitting Johanny vailable LAKSHMIPATHY ., NARENDRANATH Attending Johanny vailable MARTHA, DR LUIS Becker Primary Care Unavailable RUIZ ., SHAWNA Consulting Unavailable LEES ., DR YULI Nguyen Admitting Unavailable LEES ., DR YULI Nguyen Attending Unavailable MARTHA, DR LUIS Becker Primary Care Unavailable THOMAS, DR LUIS Becker Admitting Unavailable THOMAS, DR LUIS Becker Attending Unavailable THOMAS, DR LUIS Becker Consulting Unavailable THOMAS, DR LUIS Becker Primary Care Unavailable LAKSHMIPATHY ., NARENDRANATH Consulting Johanny vailable LAKSHMIPATHY ., NARENDRANATH Admitting Johanny vailable LAKSHMIPATHY ., NARENDRANATH Attending Johanny vailable THOMAS, DR LUIS Becker Primary Care Unavailable LEES ., DR YULI Nguyen Admitting Unavailable LEES ., DR YULI Nguyen Attending Unavailable LEES ., DR YULI Nguyen Consulting Unavailable THOMAS, DR LUIS Becker Primary Care Unavailable RUIZ ., SHAWNA Admitting Unavailable RUIZ ., SHAWNA Attending Unavailable RUIZ ., SHAWNA Consulting Unavailable THOMAS, DR LUIS Becker Primary Care Unavailable Ej Thomas Unavailable OVITT, Referring Unavailable OVITT, Referring Unavailable OVITT, Referring Unavailable OVITT, Attending Unavailable Kimber Price MD Unavailable Wiley Price MD Primary Care Provider [phone] DUSTY NASSAR Attending Unavailable DUSTY NASSAR Attending Unavailable LARRYHLDUSTY ANTOINE Attending Unavailable DUSTY NASSAR Attending Unavailable DUSTY NASSAR Attending Unavailable DUSTY NASSAR Attending Unavailable DUSTY NASSAR Attending Unavailable KRISS VELEZ Attending Unavailable KRISS VELEZ Referring Unavailable DUSTY NASSAR Attending Unavailable DUSTY NASSAR Attending Unavailable Warren PALM, Andrius Ram Attending Unavailable Warren PALM, Baldorius Ram Attending Unavailable Warren PALM, Gianna Ram Attending Unavailable Allergies Allergy Classification Reported Allergen(s) Allergy Type Date of Onset Reaction(s) Facility (1 source) ALLERGIES NOT ON FILE; Translations: [ALLERGIES NOT ON FILE] Propensity to adverse reactions (disorder) [facility] Repository Medications Current Medications Medication Drug [...] mg oral tablet (4 sources) Glucosamine-Eugene droitin-MSM (Eenbto-Yebcr-QBR-Double Str) 500-400-167 MG tablet every 12 (twelve) hours Active 1 ml denosumab 60 mg/ml prefilled syringe (10 sources) RANK Ligand Inhibitor denosumab (Prolia) 6 0 MG/ML solution prefilled syringe as directed Subcutaneous Active Fish Oils (5 sources) take 1 capsule by mouth once daily Fish Oil 1000 MG 1 capsule Orally Once a day Active Envmta-Fwxl-NMP-Ca-C-CtCl -SeCu - (5 sources) Zqkzzo-Tpsr-VEL- Km-C-LmMq-SeCu - as directed Orally Active losartan potassium [...] each day at the same time Active Gouverneur-3 Fatty Acids (Fish Oil) 1200 MG capsule delayed-release (4 sources) take 1 capsule by mouth every twelve hours Gouverneur-3 Fatty Acids (Fish Oil) 1200 MG capsule [...] unspecified] Chronic Other aftercare (3 sources) 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; Translations: [[employer] 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 DRUG THERAPY] Onset: 03-12-2022 Episodic Other bone disease and musculoskeletal deformities (5 sources) Osteopenia; Translations: [Other specified disorders of bone density and structure, unspecified site] Episodic Other bone disease and musculoskeletal deformities (6 sources) Other specified disorders of bone density and structure, unspecified site; Translations: [[facility] D/O BONE DEN STRUCT UNS SITE] Onset: [...] Reference Range [facility] Radiology Study observation (narrative) [facility] Optical coherence tomography study reporton 07-25-2024 [facility] Radiology Study observation (narrative) [facility] Radiology Study observation (narrative) [facility] Optical coherence tomography study reporton 05-30-2024 [facility] Radiology Study observation (narrative) [facility] 36on 05-17-2023 36 Spoke with patient. Explained [...] refer her to someone who does SCS. [facility] 36on 05-14-2023 36 Left message for an [...] to follow-up regarding this. Normal [facility] Telephoneon 05-14-2023 Telephone [id number] Naun Coffey ice 1945 F Date Provider Department Center 05/14/2023 ALLISON SKAGGS [facility] SURG Second Fl Family History Problem Relation Age of Onset Other Mother Stomach cancer Father Family Status - Relation Status Age at Mother Father Normal [facility] Consulton 05-13-2023 Consult [id number] Naun Coffey ice 1945 F Date Provider Department Center 05/13/2023 148-SALMA, [facility] SURG Second Fl Family History Problem Relation Age of Onset Other Mother Stomach cancer Father Family Status - Relation Status Age at Mother Father Level of Service:88285 [place] OFFICE/OUTPATIENT NEW MODERATE MDM 45-59 MINUTES Reason for Visit and Comments: Consult [484] - Pt is here for a CO visit for Spinal Stenosis. Normal [facility] 36on 04-16-2023 36 LVM for pt to call celia shanks to schedule with or Dr. Lopez for Lunbar Stenosis. Imaging requested from [email or web address]. Normal [facility] MRI LSPINE WO CONon 02-11-20 23 [...] by: OFE COFFEY Date: 2023-02-10 07:16 Normal [facility] CALCIUMon 12-24-2022 Calcium [Mass/Vol] 9.7 mg/dL Normal 8.5-10.1 [facility] Comment on above: Performed By: #### ADI Pickett ####[facility] [address] [place] [address]DrHafsa Fisher CREATININEon 12-24-2022 Creatinine [Mass/Vol] 0.62 mg/dL Normal 0.55-1.02 [facility] Comment on above: Performed By: #### ADI Pickett ####[facility] [address] [place] [id number] Fisher EGFR-AF HUNGARIAN >60 Normal >=60 [facility] Comment on above: Performed By: #### C Dora CREA ####[facility] [address] [place], [place] [address]Uo. Holly Fisher EGFR-NON AF HUNGARIAN >60 Normal >=60 [facility] Comment on above: Performed By: #### C Dora, CREA ####[facility] [address] [place], [place] [address]Fk. Holly Fisher Covid-19 PCR (CVDTBH)on SARS-CoV-2 (COVID-19) RNA FRED+probe Ql (Unsp spec) Not detected Normal NOT DETECTED [facility] Comment on above: Result Comment: This test is not yet approved or cleared by the [place] FDA. When there are no FDA-approved or cleared tests available, and other criteria are met, FDA can make tests available under an emergency access mechanism called an Emergency Use Authorization (EUA). The EUA for this test is supported by the [place] of Health and Human Service's (HHS's) declaration [...] with SARS-CoV-2. Performed By: #### C VDTBH ####[facility] [address] [place], [place] [address]Uw. Holly Fisher Covid-19 PCR (CVDTBH)on 07-28 SARS-CoV-2 (COVID-19) RNA FRED+probe Ql (Unsp spec) Not detected Normal NOT DETECTED The [facility] Comment on above: Result Comment: This test is not yet approved or cleared by the [place] FDA. When there are no FDA-approved or cleared tests available, and other criteria are met, FDA can make tests available under an emergency access mechanism called an Emergency Use Authorization (EUA). The EUA for this test is supported by the [place] of Health and Human Service's (HHS's) declaration [...] symptoms consistent with SARS-CoV-2. Performed By: #### Celia VDTB #### [facility] Laboratory [address] [place] [address] Dr. Holly Fisher CALCIUMon 06-12-2022 Calcium [Mass/Vol] 9.0 mg/dL Normal 8.5-10.1 [facility] Comment on above: Performed By: #### Celia ALMEIDA CA ####[facility] [address] [place] [address]Dr. Holly Fisher CREATININEon 06-12-2022 Creatinine [Mass/Vol] 0.65 mg/dL Normal 0.55-1.02 [facility] Comment on above: Performed By: #### XAVIER HOOD #### [facility] Laboratory [address] [address] [address] Holly Fisher EGFR-AF HUNGARIAN >60 Normal >=60 [facility] Comment on above: Performed By: #### Celia ALMEIDA CA #### [facility] [address] [place] [address] Dr. Holly Fisher EGFR-NON AF HUNGARIAN >60 Normal >=60 [facility] Comment on above: Performed By: #### Celia ALMEIDA CA #### [facility] [address] [address] [address] Holly Fisher XR LSPINE W_OBLS AND [...] YOUSUF ORTIZ Date: 2022-05-04 08:47 Normal [facility] CBC AUTO DIFFon 03-05-2022 BASO # 0.1 103/ul Normal 0.0-0.1 [facility] Comment on above: Performed By: #### C BC ####[facility] [address] [place] [address]Dr. Holly Fisher Basophils/100 WBC (Bld) 1.0 % Normal 0.2-2.0 [facility] Comment on above: Performed By: #### C BC ####[facility] [address] [place] [address]DrHafsa Fisher EO # 0.2 103/ul Normal 0.0-0.7 [facility] Comment on above: Performed By: #### C BC ####[facility] [address] [place] [address]DrHafsa Fisher Eosinophils/100 WBC (Bld) 2.4 % Normal 0.9-7.0 [facility] Comment on above: Performed By: #### C BC ####[facility] [address] [place], [place] [address]DrHafsa Fisher Erythrocyte distribution width (RBC) [Ratio] 14.4 % Normal 11.0-15.0 [facility] Comment on above: Performed By: #### C BC ####[facility] [address] [place], [place] [address]DrHafsa Fisher Hematocrit (Bld) [Volume fraction] 41.1 % Normal 36.0-48.0 [facility] Comment on above: Performed By: #### C BC ####[facility] [address] [place] [address]Dr. Holly Fisher Hemoglobin (Bld) [Mass/Vol] 13.4 g/dL Normal 12.0-16.0 [facility] Comment on above: Performed By: #### C BC ####[facility] [address] [place] [address]Dr. Holly Fisher IG # 0.03 10e3/ul Normal 0.00-0.03 [facility] Comment on above: Performed By: #### C BC ####[facility] [address] [place] [address]Dr. Holly Fisher IG % 0.5 % Normal 0.0-0.5 [facility] Comment on above: Performed By: #### C BC ####[facility] [address] [place], [place] [address]Dr. Holly Fisher LYMPH # 1.5 103/ul Normal 1.2-3.8 [facility] Comment on above: Performed By: #### C BC ####[facility] [address] [place], [place] [address]Dr. Holly Fisher Lymphocytes/100 WBC (Bld) 24.3 % Normal 20.5-60.0 [facility] Comment on above: Performed By: #### C BC ####[facility] [address] [place] [address]Dr. Holly Fisher MANUAL DIFF REQ NO Normal [facility] Comment on above: Performed By: #### C BC ####[facility] [address] [place] [address]Dr. Holly Fisher MCH (RBC) [Entitic mass] 30.3 pg Normal 26.7-34.0 [facility] Comment on above: Performed By: #### C BC ####[facility] [address] [place] [address]Dr. Holly Fisher MCHC (RBC) [Mass/Vol] 32.6 g/dL Normal 29.9-35.2 [facility] Comment on above: Performed By: #### C BC ####[facility] [address] [place] [id number]. Holly Fisher MCV (RBC) [Entitic vol] 93.0 fL Normal 81.0-99.0 [facility] Comment on above: Performed By: #### C BC ####[facility] [address] [place] [id number]. Holly Fisher MONO # 0.5 103/ul Normal 0.3-0.8 [facility] Comment on above: Performed By: #### C BC ####[facility] [address] [place], [place] [address]Dr. Holly Fisher Monocytes/100 WBC (Bld) 7.3 % Normal 1.7-12.0 [facility] Comment on above: Performed By: #### C BC ####[facility] [address] [place], [place] [address]Dr. Lindaban Phillip NEUT # 4.1 103/ul Normal 1.4-6.5 [facility] Comment on above: Performed By: #### C BC ####[facility] [address] [place], [place] [address]Dr. Lindaban Fisher Neutrophils/100 WBC (Bld) 64.5 % Normal 43.0-75.0 [facility] Comment on above: Performed By: #### C BC ####[facility] [address] [place], [place] [address]Dr. Holly Fisher Platelet mean volume (Bld) [Entitic vol] 10.5 fL Normal 9.5-13.5 [facility] Comment on above: Performed By: #### C BC ####[facility] [address] [place], [place] [id number]. Holly Fisher PLT 253 103/ul Normal 150-450 [facility] Comment on above: Performed By: #### C BC ####[facility] [address] [place] [id number]. Holly Fisher RBC 4.42 106/ul Normal 4.20-5.40 [facility] Comment on above: Performed By: #### C BC ####[facility] [address] [place], [place] [address]TdDr. Holly Fisher WBC 6.3 103/ul Normal 4.0-11.0 [facility] Comment on above: Performed By: #### C BC ####[facility] [address] [place], [place] [address]QkDr. Holly Fisher LIPID PROFILEon 03-05-2022 CHOL-HDL RATIO NORM SEE BELOW Normal [facility] Comment on above: Result Comment: 3.3 - 4.4 LOW RISK 4.4 - 7.1 AVERAGE RISK 7.1 - 11.0 MODERATE RISK >11.0 HIGH RISK Performed By: #### L IPID, CMP #### [facility] [address] [address] [address] Holly Fisher Cholesterol [Mass/Vol] 263 mg/dL Critically high <=200 [facility] Comment on above: Performed By: #### L IPID, CMP #### [facility] [address] [address] [address] Holly Fisher Cholesterol in HDL [Mass/Vol] 63 mg/dL Critically high 40-60 [facility] Comment on above: Performed By: #### L IPID, CMP #### [facility] [address] [address] [address] Holly Fisher Cholesterol in LDL [Mass/Vol] 160.2 mg/dL Normal [facility] Comment on above: Performed By: #### L IPID, CMP #### [facility] [address] [address] [address] Holly Fisher Cholesterol.total/ Cholesterol in HDL [Mass ratio] 4.2 {ratio} Normal [facility] Comment on above: Performed By: #### L IPID, CMP #### [facility] [address] [address] [address] Holly Fisher HDL NORMAL > or = 60 mg/dl - LO W CARDIOVASCULAR RISK <40 mg/dl - HIGH CARDIOVASCULAR RISK Normal [facility] Comment on above: Performed By: #### L IPID, CMP #### [facility] [address] [address] [address] Holly Fisher LDL CALC NORMAL SEE BELOW Normal [facility] Comment on above: Result Comment: <100 mg/dl OPTIMAL 100 - 129 mg/dl NEAR OR ABOVE OPTIMAL 130 - 159 mg/dl BORDERLINE HIGH 160 - 189 mg/dl HIGH >190 mg/dl VERY HIGH Performed By: #### L IPID, CMP #### [facility] [address] [address] [address] Holly Fisher Triglyceride [Mass/Vol] 199 mg/dL Critically high <=150 [facility] Comment on above: Performed By: #### L IPID, CMP #### [facility] [address] [address] [address] Holly Fisher VLDL CALC 39.8 mg/dL Normal [facility] Comment on above: Performed By: #### L IPID, CMP #### [facility] [address] [address] [address] Holly Fisher MG MAMM SCREEN 3D SHERRIE CADon 03-05-2022 MG MAMM SCREEN 3D SHERRIE CAD Patient: LETTY COFFEY Exam Date: 03/05/2022 : 1945 Gender:F Ordering : DR LUIS THOMAS M.D. Admission #: [id number] Family : Order #: [id number] CLICK HERE TO VIEW EXAM RADIOLOGY REPORT [...] Treatments None Family Cancers None LOCATION: The [facility] BREAST COMPOSITION: Scattered areas fibroglandular density. [...] Ortiz MD on 03/05/2022 at 09:55 Normal [facility] PROF 14(COMP METB)on 022 Albumin [Mass/Vol] 3.9 g/dL Normal 3.4-5.0 [facility] Comment on above: Performed By: #### L IPID, CMP #### [facility] [address] [address] [address] Holly Fisher Albumin/Globulin [Mass ratio] 1.1 {ratio} Normal [facility] Comment on above: Performed By: #### L IPID, CMP #### [facility] [address] [place] [address] Dr. Holly Fisher ALP [Catalytic activity/Vol] 54 U/L Normal 46-116 [facility] Comment on above: Performed By: #### L IPID, CMP #### [facility] [address] [place] [address] Dr. Holly Fisher ALT [Catalytic activity/Vol] 22 U/L Normal 14-59 [facility] Comment on above: Performed By: #### L IPID, CMP #### [facility] [address] [place] [address] Dr. Holly Fisher Anion gap [Moles/Vol] 12.5 mmol/L Normal [facility] Comment on above: Performed By: #### L IPID, CMP #### [facility] [address] [place] [address] Dr. Holly Fisher AST [Catalytic activity/Vol] 14 U/L Critically low 15-37 [facility] Comment on above: Performed By: #### L IPID, CMP #### [facility] [address] [place] [address] Dr. Holly Fisher Bilirubin [Mass/Vol] 0.4 mg/dL Normal 0.2-1.0 [facility] Comment on above: Performed By: #### L IPID, CMP #### [facility] [address] [place] [address] Dr. Holly Fisher Calcium [Mass/Vol] 8.6 mg/dL Normal 8.5-10.1 [facility] Comment on above: Performed By: #### L IPID, CMP #### [facility] [address] [place] [address] Dr. Holly Fisher Chloride [Moles/Vol] 106 mmol/L Normal 98-107 [facility] Comment on above: Performed By: #### L IPID, CMP #### [facility] [address] [place] [address] Dr. Holly Fisher CO2 [Moles/Vol] 26.8 mmol/L Normal 21.0-32.0 [facility] Comment on above: Performed By: #### L IPID, CMP #### [facility] [facility] [address] [place] [address] Dr. Holly Fisher Creatinine [Mass/Vol] 0.60 mg/dL Normal 0.55-1.02 [facility] Comment on above: Performed By: #### L IPID, CMP #### [facility] [address] [place] [address] Dr. Holly Fisher EGFR-AF HUNGARIAN >60 Normal >=60 The [facility] Comment on above: Performed By: #### L IPID, CMP #### [facility] [address] [place] [address] Dr. Holly Fisher EGFR-NON AF HUNGARIAN >60 Normal >=60 [facility] Comment on above: Performed By: #### L IPID, CMP #### [facility] [address] [place] [address] Dr. Holly Fisher Globulin (S) [Mass/Vol] 3.4 g/dL Normal [facility] Comment on above: Performed By: #### L IPID, CMP #### [facility] [address] [place] [address] Dr. Holly Fisher Glucose [Mass/Vol] 98 mg/dL Normal 74-106 The [facility] Comment on above: Performed By: #### L IPID, CMP #### [facility] [address] [place] [address] Dr. Holly Fisher Potassium [Moles/Vol] 4.3 mmol/L Normal 3.5-5.1 [facility] Comment on above: Performed By: #### L IPID, CMP #### [facility] [address] [place] [address] Dr. Holly Fisher Protein [Mass/Vol] 7.3 g/dL Normal 6.4-8.2 [facility] Comment on above: Performed By: #### L IPID, CMP #### [facility] [address] [place] [address] Dr. Holly Fisher Sodium [Moles/Vol] 141 mmol/L Normal 136-145 [facility] Comment on above: Performed By: #### L IPID, CMP #### [facility] [address] [place] [address] Dr. Holly Fisher Urea nitrogen [Mass/Vol] 14.0 mg/dL Normal 7.0-18.0 [facility] Comment on above: Performed By: #### L IPID, CMP #### [facility] [address] [place] [address] Dr. Holly Fisher Urea nitrogen/Creatinin e [Mass ratio] 23.3 mg/mg Normal [facility] Comment on above: Performed By: #### L IPID, CMP #### [facility] [address] [place] [address] Dr. 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 Normal [facility] OPERATIVE REPORTon 7 [facility] LET[facility] COFFEY : 49MED REC NO: [id number] ROOM:ACCOUNT NO: [id number] ADMISSION DATE: 04/27/17PHYSICIAN: EMRE STAPLETONDATE OF PROCEDURE: [...] used to engage the membrane in a hhzna-rxs-ouha technique andthe membrane was elevated from the [...] condition, having tolerated theprocedure well without complications.EMRE Mario Alberto STAPLETOND:04/27/2017 9:59:31 CD/V_VGPRS_TJob#: [id number] Doc#: [id number] [facility] Vital Signs Date Time Vital Sign Value Performing Clinician Facility 06-30-2023 09:15-0400 Body height 158.75 cm Luis Thomas Other [facility] Other 06-30-2023 09:15-0400 Body mass index (BMI) [Ratio] 30.95 kg/m2 Luis Thomas Other [facility] Other 06-30-2023 09:15-0400 Body temperature 96.5 [degF] Luis Thomas Other [facility] Other 06-30-2023 09:15-0400 Body weight 78.02 kg Luis Thomas Other [facility] Other 06-30-2023 09:15-0400 Diastolic blood pressure 76 mm[Hg] Luis Thomas Other [facility] Other 06-30-2023 09:15-0400 Systolic blood pressure 156 mm[Hg] Luis Thomas Other [facility] Other 04-13-2023 15:00-0400 Body height 158.75 cm Luis Thomas Other [facility] Other 04-13-2023 15:00-0400 Body mass index (BMI) [Ratio] 31.49 kg/m2 Luis Thomas Other [facility] Other 04-13-2023 15:00-0400 Body weight 79.38 kg Luis Thomas Other [facility] Other 04-13-2023 15:00-0400 Diastolic blood pressure 78 mm[Hg] Luis Thomas Other [facility] Other 04-13-2023 15:00-0400 Systolic blood pressure 135 mm[Hg] Luis Thomas Other [facility] Other 03-18-2023 08:40-0400 Body height 158.75 cm Ej Thomas Other [facility] Other 03-18-2023 08:40-0400 Body mass index (BMI) [Ratio] 31.67 kg/m2 Ej Thomas Other [facility] Other 03-18-2023 08:40-0400 Body weight 79.83 kg Ej Thomas Other [facility] Other 03-18-2023 08:40-0400 Diastolic blood pressure 84 mm[Hg] Ej Thomas Other [facility] Other 03-18-2023 08:40-0400 Systolic blood pressure 134 mm[Hg] Ej Thomas Other [facility] Other 04-27-2023 11:00-0400 Body height 158.75 cm Luis Thomas Other [facility] Other 01-21-2023 11:00-0400 Body mass index (BMI) [Ratio] 32.21 kg/m2 Luis Thomas Other [facility] Other 01-21-2023 11:00-0400 Body weight 81.19 kg Luis Thomas Other [facility] Other 01-21-2023 11:00-0400 Diastolic blood pressure 82 mm[Hg] Luis Thomas Other [facility] Other 01-21-2023 11:00-0400 SaO2% (BldA) [Mass fraction] 97 % Luis Thomas Other [facility] Other 01-21-2023 11:00-0400 Systolic blood pressure 142 mm[Hg] Luis Thomas Other [facility] Other Encounters Encounter Date Encounter Type Care Provider Facility Start: 09-18-2024 End: 09-18-2024 ambulatory [facility] Start: 09-11-2024 End: 09-11-2024 ambulatory Gianna Kelley MD Facility: [facility] Start: 08-21-2024 End: 08-21-2024 ambulatory Gianna Kelley MD [facility] Start: 07-25-2024 End: 07-25-2024 Bamboo flowsalexey Nassar DO Work Phone: [facility] Start: 07-25-2024 End: 07-25-2024 [employer]amboo [employer] Dusty Nassar DO Work Phone: [facility] Start: 07-25-2024 End: 07-25-2024 Clinical Support Dusty Nassar DO Work Phone: [facility] Comment on above: Macular Degeneration ; Retinal Injection Start: 05-30-2024 End: 05-30-2024 Bamboo flowsheet Dusty Ortizer DO Work Phone: [facility] Start: 05-30-2024 End: 05-30-2024 Bamboo flowsheet Dusty Lauren Larrybarbier DO Work Phone: [facility] Start: 05-30-2024 End: 05-30-2024 ambulatory DUSTY D ZAHLER Not Available Start: 05-10-2024 End: 05-10-2024 ambulatory KRISS Rosita VELEZ Not Available Start: 04-05-2024 End: 04-05-2024 [...] Not Available Start: 06-30-2023 End: 06-30-2023 ambulatory Luis Thomas Other [facility] Other Start: 06-30-2023 Office outpatient vi sit 15 minutes Luis Thomas [facility] Start: 05-18-2023 End: 05-18-2023 ambulatory Luis Thomas Other [facility] Other Start: 05-18-2023 Telephone encounter Luis Thomas [facility] Start: 05-13-2023 End: 05-14-2023 ambulatory [facility] Start: 05-13-2023 End: 05-13-2023 ambulatory [facility] Start: 04-16-2023 End: 04-17-2023 ambulatory [facility] Start: 04-13-2023 End: 04-13-2023 ambulatory Luis Thomas Other [facility] Other Start: 04-13-2023 Office outpatient vi sit 15 minutes Luis Thomas [facility] Start: 04-05-2023 End: 04-05-2023 ambulatory Ej Thomas Other [facility] Other Start: 04-05-2023 Telephone encounter Ej Thomas [facility] Start: 03-18-2023 End: 03-18-2023 ambulatory Ej Thomas Other [facility] Other Start: 03-18-2023 Office outpatient ne w 30 minutes Ej Thomas [facility] Start: 02-09-2023 End: 02-10-2023 ambulatory NARENDRANATH LAKSHMIPATHY . Facility:[facility] Start: 02-01-2023 ambulatory NARENDRANATH LAKSHMIPATHY . Facility:[facility] Start: 01-28-[address] LUIS THOMAS Facil ity:[facility] Start: 01-28-2023 End: 01-29-2023 ambulatory NARENDRANATH LAKSHMIPATHY . Facility:[facility] Start: 01-21-2023 End: 01-21-2023 ambulatory Luis Thomas Other [facility] Other Start: 01-21-2023 Office outpatient vi sit 15 minutes Luis Thomas [facility] Start: 01-12-2023 End: 01-12-2023 ambulatory NARENDRANATH LAKSHMIPATHY . Facility:[facility] Start: 12-31-2022 End: 01-01-[address] LUIS THOMAS Facility:[facility] Start: 12-28-2022 End: 12-28-[address] LUIS THOMAS Facility:[facility] Start: 12-24-2022 End: 12-25-[address] LUIS THOMAS Facility:[facility] Start: 10-07-2022 End: 10-08-2022 ambulatory SHAWNA RUIZ . Facility:[facility] Start: 09-03-2022 Encounter for preprocedural laboratory examination DR YULI ELES . [facility] Start: 09-01-2022 End: 09-01-[address] YULI LEES . Facility:[facility] Start: 08-28-2022 End: 08-29-[address] LUIS THOMAS Facility:[facility] Start: 08-28-2022 End: 08-29-2022 Encounter for preprocedural laboratory examination DR LUIS THOMAS Facility:[facility] Start: 08-11-2022 End: 08-11-[address] YULI LEES . Facility:[facility] Start: 08-08-2022 Encounter for preprocedural cardiovascular examination SHAWNA RUIZ . [facility] Start: 08-07-2022 End: 08-08-[address] LUIS THOMAS Facility:[facility] Start: 08-03-2022 End: 08-04-2022 ambulatory SHAWNA RUIZ . Facility:[facility] Start: 08-03-2022 End: 08-04-2022 Encounter for preprocedural cardiovascular examination SHAWNA RUIZ . Facility:[facility] Start: 07-30-2022 End: 07-31-[address] YULI LEES . Facility:[facility] Start: 06-30-2022 End: 06-30-[address] YULI LEES . Facility:[facility] Start: 06-26-2022 End: 06-26-[address] LUIS THOMAS Facility:[facility] Start: 06-25-2022 End: 06-26-2022 ambulatory SHAWNA RUIZ . Facility:[facility] Start: 06-12-2022 End: 06-13-[address] LUIS THOMAS Facility:[facility] Start: 06-09-2022 End: 06-09-[address] YULI LEES . Facility:[facility] Start: 05-19-2022 End: 05-20-[address] YULI LEES . Facility:[facility] Start: 05-01-2022 End: 05-02-[address] YULI LEES . Facility:[facility] Start: 04-28-2022 End: 04-29-[address] YULI LEES . Facility:[facility] Start: 03-05-2022 End: 03-06-[address] YOUSUF ORTIZ Facility:[facility] Start: 04-27-2017 End: 04-27-2017 Ambulatory EMRE STAPLETON [facility] Procedures Date Procedure Procedure Detail Performing Clinician Start: 07-25-2024 Intravitreal njx pharmacologic agt spx Dusty Nassar DO Work Phone: Start: 07-25-2024 Computerized ophthalmic imaging retina Dusty Nassar DO Work Phone: Start: 05-30-2024 Intravitreal njx pharmacologic agt spx Dusty Nassar DO Work Phone: Start: 05-30-2024 Computerized ophthalmic imaging retina Dusty Nassar DO Work Phone: Start: 05-30-2024 End: [...] (SPECIFY) EMRE STAPLETON Start: 04-27-2017 NURSING COMMUNICATION C CONOR STAPLETON Start: 04-27-2017 NURSING OXYGEN ORDERS/INSTRUCTIONS EMRE STAPLETON Start: 04-27-2017 VITAL SIGNS EMRE BYNUM Management of drug regimen Luis Thomas Other Screening for malignant neoplasm of colon Luis Thomas Other Plan of Treatment Date Care Activity Detail Author Start: 05-24-2025 End: 05-24-2025 Patient encounter procedure 05/24/2025 10:00 AM EDT Office Visit [facility] [address] [place] [id number] Kriss Velez DO [address] [place] [address] [facility] Start: 07-25-2024 End: 07-25-2024 Clinical Support 07/25/2024 1:45 PM EDT Clinical Support [facility] [address] [place] [id number] Dusty Nassar, DO [address] [place] [address] Arrived [facility] Comment on above: Arrived Start: 05-30-2024 End: 05-30-2024 Clinical Support 05/30/2024 9:45 AM EDT Clinical Support [facility] [address] [place] [address] Dusty Nassar, DO [address] [place] [address] Arrived [facility] Comment on above: Arrived Start: 05-28-2024 Influenza vaccination Influenza Vacc ine (#1) [facility] Start: 02-26-2023 ambulatory Ambulatory Facility:[facility] 1 Intravitreal Injection, Pharmacologic Agent - OD - Right Eye Intravitreal Injection, Pharmacologic Agent - OD - Right Eye Ophthalmology Routine 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 eye with active choroidal neovascularization (HCC) ([facility]/HCC) Ordered: 07/25/2024 [facility] Work Phone: Comment on above: Ordered: 07/25/2024 Intravitreal Injection, Pharmacologic Agent - OD - Right Eye Intravitreal Injection, Pharmacologic Agent - OD - Right Eye Ophthalmology Routine 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 eye with active choroidal neovascularization (HCC) ([facility]/HCC) Ordered: 05/30/2024 [facility] Work Phone: Comment on above: Ordered: 05/30/2024 Immunizations Immunization Date Immunization Notes Care Provider Asim radha 07-26-2023 influenza virus vacc ine, unspecified formulation Dusty Nassar DO Work Phone: [facility] Payers Date Payer Category Payer [facility] BCBS [id number] 2018 Unknown [id number] [id number]. [id number] 2017 Medicare [id number]. 1.13.693.2. [id number] 2014 Unknown [id number] 1959 [facility] [id number] 2.16.840.1.293136.19 1959 Medicare [id number] 2.16.840.1.900854.19 1959 Unknown [id number] 1947 Unknown [id number] 2.16.840.1.410657.3.579.2. 593 1947 Unknown [id number] 2.16.840.1.431597.3.579.2. 593 1947 Unknown [id number] 2.16.840.1.035921.3.579.2. 593 1947 Unknown [id number] 2.16.840.1.590498.3.579.2. 593 1947 Unknown [id number] 2.16.840.1.341543.3.579.2. 593 1947 Unknown [id number] 2.16.840.1.919349.3.579.2. 593 1947 Unknown [id number] 2.16.840.1.411410.3.579.2. 593 1947 Unknown [id number] 2.16.840.1.223162.3.579.2. 593 1947 Unknown [id number] 2.16.840.1.885791.3.579.2. 593 1947 Unknown [id number] 2.16.840.1.732724.3.579.2. 593 1947 Unknown [id number] 2.16.840.1.563021.3.579.2. 593 1947 Unknown [id number] 2.16.840.1.533602.3.579.2. 593 1947 Unknown [id number] 2.16.840.1.788281.3.579.2. 593 1947 Unknown [id number] 2.16.840.1.355324.3.579.2. 593 1947 Unknown [id number] 2.16.840.1.734671.3.579.2. 593 1947 Unknown [id number] 2.16.840.1.823038.3.579.2. 593 1947 Unknown [id number] 2.16.840.1.850757.3.579.2. 593 1947 Unknown [id number] 2.16.840.1.200851.3.579.2. 593 1947 Unknown [id number] 2.16.840.1.228357.3.579.2. 593 1947 Unknown [id number] 2.16.840.1.862586.3.579.2. 593 1947 Unknown [id number] 2.16.840.1.431516.3.579.2. 593 1947 Unknown [id number] 2.16.840.1.093056.3.579.2. 593 1947 Unknown [id number] 2.16.840.1.485081.3.579.2. 593 1947 Unknown [id number] 2.16.840.1.006913.3.579.2. 593 1947 Unknown [id number] 2.16.840.1.721521.3.579.2. 593 1947 Unknown [id number] 2.16.840.1.087068.3.579.2. 1259 1947 Unknown [id number] 2.16.840.1.791376.3.579.2. 1259 1947 Unknown [id number] 2.16.840.1.980665.3.579.2. 1259 1947 Unknown [id number] 2.16.840.1.576292.3.579.2. 1259 1947 Unknown [id number] 2.16.840.1.372501.3.579.2. 1259 1947 Unknown [id number] 2.16.840.1.325299.3.579.2. 1259 1947 Unknown [id number] 2.16.840.1.091488.3.579.2. 1259 1947 Unknown [id number] 2.16.840.1.622530.3.579.2. 1259 1947 Unknown [id number] 2.16.840.1.758418.3.579.2. 1259 1947 Unknown [id number] 2.16.840.1.843410.3.579.2. 1259 1947 Unknown [id number] 2.16.840.1.547695.3.579.2. 196 1947 Unknown [id number] 2.16.840.1.152310.3.579.2. 196 1947 Unknown [id number] 2.16.840.1.433889.3.579.2. 196 Social History Date Type Detail Facility Unknown if ever smoked [facility] Other Start: 04-05-2024 End: 05-30-2024 Sex Assigned At [facility] Other Start: 10-11-2023 Tobacco smoking status FLIS Never smoked tobacco [facility] Start: 10-11-2023 Tobacco use and exposure Smokeless tobacco non-user [facility] Start: 04-05-2024 End: 05-30-2024 History of Social function [facility] Start: 1945 Sex assigned at Not on file N [facility] Clinical Notes 03-05-2022 to 07-25-2024 Dusty Nassar, DO - 07/25/2024 1:45 PM EDTDusty Nassar, DO - 05/30/2024 9:45 AM EDT Note Date & Type Note Facility 07-25-2024 Note Time Out 07/25/2024. 2:58 PM. Confirmed correct patient, procedure, site, and patient consented. Anesthesia Topical anesthesia was used. Anesthetic medications included Lidocaine 2%, Proparacaine 0.5%. Procedure Preparation included 5% betadine to ocular surface, eyelid speculum. Injection: 2 mg aflibercept 2 MG/0.05ML Route: Intravitreal, Site: Left Eye [facility]: 77628-389-84, Lot: [id number], Expiration date: 08/27/2025, Waste: 0 mL Post-op [...] increased pain, redness, decreased vision or concerns. [facility] 07-25-2024 Note Right Eye Quality was good. Scan locations included subfoveal. Progression has been stable. Findings include abnormal foveal contour, pigment epithelial detachment. Left Eye Quality was good. Scan locations included subfoveal. Progression has been stable. Findings include abnormal foveal contour. [facility] 07-25-2024 History of Presen t illness Narrative Images from the original note were not included. Assessment/Plan Diagnoses and all orders for this visit: 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 eye with active choroidal neovascularization ([facility]/HCC) - OCT, Retina - OU - [...] 2 MG/0.05ML Route: Intravitreal, Site: Left Eye [facility]: 13207-216-82, Lot: [id number], Expiration date: 08/27/2025, Waste: 0 mL Post-op [...] vision or concerns. documented in this encounter [facility] 05-30-2024 Note Time Out 05/30/2024. 10:38 AM. Confirmed correct patient, procedure, site, and patient consented. Anesthesia Topical anesthesia was used. Anesthetic medications included Lidocaine 2%, Proparacaine 0.5%. Procedure Preparation included 5% betadine to ocular surface, eyelid speculum. Injection: 1.25 mg bevacizumab 100 MG/4ML Route: Intravitreal, Site: Left Eye [facility]: 76173-045-74, Lot: [id number], Expiration date: 08/14/2024, Waste: 0 mL Post-op [...] increased pain, redness, decreased vision or concerns. [facility] 05-30-2024 Note Right Eye Quality was good. Scan locations included subfoveal. Progression has improved. Findings include abnormal foveal contour, intraretinal fluid, pigment epithelial detachment. Left Eye Quality was good. Scan locations included subfoveal. Progression has been stable. Findings include abnormal foveal contour. [facility] 05-30-2024 History of Presen t illness Narrative [...] 100 MG/4ML Route: Intravitreal, Site: Left Eye [facility]: [id number], Lot: [id number], Expiration date: 08/14/2024, Waste: 0 mL Post-op [...] MG/ML solution prefilled syringe as directed Subcutaneous Nwmqdlfwilm-Lnovfsfdxhv-YQY (Wpfwtg-Cpzir-BGU-Double Str) 500-400-167 MG tablet every 12 (twelve) [...] time each day at the same time [place]-3 Fatty Acids (Fish Oil) 1200 MG capsule [...] Normal Normal Refraction Wearing Rx Sphere Cylinder [place] Add Right +2.50 -2.00 077 +3.25 Left [...] laser capsulotomy, they are to notify their tail dogger promptly if they have a significant change in symptoms, such as flashes of light (photopsia), an increase in floaters, loss of visual field or decrease in visual acuity. documented in this encounter [facility] 06-30-2023 Evaluation note Encounter Date Diagnosis Assessment Notes Jun, Acute non-recurrent maxillary sinusitis (ICD-10 - J01.00) Finish antibiotic, stay hydrated. Ok for NSAIDs for head pressure. Call if no improvement. [facility] 08-17-2023 NoteSUBJECTIVE: Chief complaint: Back and right leg pain. History of present illness: Consultation referred by pain management, Dr. Layton of [facility]. Patient reports chronic low back pain [...] any pre (more content not included)...[facility]08-17-2023 NoteSubjective: HPI: Letty Coffey is a [...] and assess x-rays of back. Malina Mckeon [id number]07-18-2023 Evaluation note* Encounter Date Diagnosis Assessment Notes [...] is busy with other appts right now. [facility] 06-22-2023 Evaluation note* Encounter Date Diagnosis [...] long as possible before considering surgical intervention. [facility] 05-04-2023 NoteCONSULTATION CONSULTATION DATE: 01/28/2023 TO: Luis Thomas M.D. CHIEF COMPLAINT: Includes right lower [...] our patients to inform us about any qrlh-kqx-injnhkx medications or herbal remedies/nutritional supplements/alternative remedies. 2. [...] treatment options with their primary care provider.[facility] [id number] Evaluation note * Encounter Date Diagnosis Assessment Notes Treatment Notes Treatment Clinical Notes Dec, Essential (primary) hypertension (ICD-10 - I10) new problem. rx handwritten. f/u 6 weeks. Dec, Other chronic pain (ICD-10 - G89.29) Dec, Pain in left shoulder (ICD-10 - M25.512) PT order given to pt. [facility] 04-06-2023 NoteCONSULTATION CONSULTATION DATE: 12/31/2022 TO: Luis Thomas M.D. CHIEF COMPLAINT: Includes right lower [...] our patients to inform us about any tgqc-tzr-arjoixf medications or herbal remedies/nutritional supplements/alternative remedies. 2. [...] treatment options with their primary care provider.[facility] [id number] Note CONSULTATION PROCEDURE DATE: 10/07/2022 PREOPERATIVE DIAGNOSIS: [...] fan-like pattern. Patient tolerated the procedure well.[facility] [id number] NoteCONSULTATION CONSULTATION DATE: 10/07/2022 HISTORY OF PRESENT [...] sitting does decrease her pain. Medications include ghrn-jbi-npbbjdc Tylenol and the use of Salonpas patches. [...] otherwise indicated. Patient agrees with this plan.[facility] [id number] NoteCONSULTATION CONSULTATION DATE: 07/30/2022 This is a [...] be followed up at the office thereafter.[facility] [id number] NoteCONSULTATION CONSULTATION DATE: 06/25/2022 HISTORY OF PRESENT [...] patient is in agreement with this plan.[facility] [id number] NoteCONSULTATION CONSULTATION DATE: 05/19/2022 CHIEF COMPLAINT: Right [...] near future, under the care of Dr. Luis Thomas, which I would strongly suggest she [...] understands and would like to proceed. CC: Luis Thomas M.D.[facility] [id number] NoteCONSULTATION PROCEDURE DATE: 04/28/2022 PREOPERATIVE DIAGNOSIS: Right [...] Will be followed up in the office.[facility] [id number] NoteCONSULTATION CONSULTATION DATE: 04/28/2022 CHIEF COMPLAINT: Right hip pain. HISTORY OF PRESENT ILLNESS: This is a very pleasant, 76-year-old female who has been referred to us by Dr. Luis Thomas. The patient has had chronic pain, [...] understands and would like to proceed. CC: Luis Thomas M.D.[facility] [id number] NotePROCEDURE: XR HIP RT 2 3V W PELVIS COMPARISON: None. HISTORY: Arthropathy FINDINGS: BONES:No acute fracture or dislocation. Mild osteoarthropathy with marginal osteophyte formation. 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 No visible soft tissue swelling. EFFUSION:None visible. OTHER: Negative. 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 Electronically authenticated by: YOUSUF ORTIZ Date: 2022-03-05 10:09[facility] noteNo InformationNoh[facility] Other evaluation note* Diagnosis 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 eye with active choroidal neovascularization (CMS/HCC)- Primary documented in this encounter [facility] HealthcareEvaluation note* Diagnosis 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 eye with active choroidal neovascularization (HCC) (CMS/HCC)- Primary Right posterior capsular opacification Unspecified after-cataract documented in this encounter [facility]History general [...] History COLONOSCOPY Hospitalization History SEE SURGICAL HX [facility] Other History general Narrative - Reported* Type [...] growth surgery Hospitalization History SEE SURGICAL HX [facility] Other Summary Purpose Family History No Family [...] content) DATE CREATED AUTHOR 03/23/2018 [facility] DATE CREATED AUTHOR AUTHOR'S ORGANIZ ATION 02/10/2023 [facility] DATE CREATED AUTHOR AUTHOR'S ORGANIZ ATION 05/19/2023 [facility] DATE CREATED AUTHOR AUTHOR'S ORGANIZ ATION 07/27/2024 [facility] DATE CREATED AUTHOR AUTHOR'S ORGANIZ ATION 09/22/2024 [facility] REASON FOR VISIT (unrecogniz ed section and content) Reason Comments Macular Degeneration Retinal Injection Reason Comments Follow-up Care Teams (unrecognized sec tion and content) Import Clerk Relationship Specialty Start Date End Date Wiley Price MD [address] [place] [id number] PCP - General Family Medicine 12/10/23 Kimber Price MD [address] [place] [address] Referring Physician Family Medicine 10/15/23 Import Clerk Relationship Specialty Start Date End Date Wiley Price MD [address] [place] [id number] PCP - General Family Medicine 12/10/23 Kimber Price MD [address] [place] [id number] Referring Physician Family Medicine 10/15/23 Import Clerk Relationship Specialty Start Date End Date Wiley Price MD [address] [place] [id number] PCP - General Family Medicine 12/10/23 Kimber Price MD [address] [place] [id number] Referring Physician Family Medicine 10/15/23 FOR RECORDS [...] ON THE PRIMARY CLINICAL RECORDS. [facility]. provides no warranty or guarantee of the accuracy or completeness of information in this document.
[2024-09-25 09:43] VITALS: BP 166/78; PULSE 79; O2SAT 96
[2024-09-25 09:46] VITALS: BP 169/72; PULSE 69; O2SAT 96
[2024-09-25] MEDS: BUPIVACAINE HCL 0.25% PF 25 MG/10 ML VIAL 2 ML INJ (09:47)
[2024-09-25] MEDS: LIDOCAINE HCL 2% 400 MG/20 ML MDV INJ (09:48)
[2024-09-25] MEDS: METHYLPREDNISOLONE ACETATE 40 MG/ML VIAL INJ (09:48)
[2024-09-25] MEDS: IOHEXOL 240 MG/ML - 10 ML VIAL 12 MG INJ (09:48)
--- NOTE | 2024-09-25 09:51 | W.PM.PROCNOT ---
Date of procedure: 09/25/24 Pre-op diagnosis: Pain due to right sacroiliitis Post-op diagnosis: same as pre-op Procedure: Procedure: Right sacroiliac joint injection Medications: Bupivacaine 0.25% 3cc, depomedrol 40mg After informed consent was obtained, the patient was brought to the medical procedure unit and placed in the prone position, when a timeout was completed verifying correct patient, procedure, site, positioning, implant, and/or special equipment.? The skin overlying the area was prepped and draped in standard sterile fashion using alcohol.? A 25-gauge needle was inserted towards the right sacroiliac joint under direct fluoroscopic imaging.? Needle tip was advanced until the joint was encountered.? We instilled a total of 2 mL of solution.? Postoperatively needles were removed.? The patient tolerated the procedure well without complication.? The patient reported reduction in pain symptoms postoperatively. Anesthesia: Local Surgeon: Gianna Kelley Pathology: none sent Condition: stable Disposition: no change
== END 2024-09-25 09:50 | disposition home or self-care (01) ==
LOC: SURGOUT 08:01
PROVIDERS: PCP Nurse Practitioner Family; Visit Provider Anesthesiology
DX: M46.1 Sacroiliitis, not elsewhere classified (principal)
CPT/HCPCS: 27096; J0665; J1010; Q9966

== ENCOUNTER 2024-10-02 11:12 | Outpatient (OUT) | payer MEDICARE, BC, SELFPAY ==
--- NOTE | 2024-10-02 12:35 | P.CN_ITS ---
Consult Note: HPI Data of Consult Patient: known to practice within the last 3 years Consult date: 10/02/24 Requesting Physician: Gianna Kelley MD Primary Care Provider: KIEL ALMODOVAR Consult Narrative Reason for consult: low back pain Narrative: 79yof who presents for assessment. she notes good improvement after recent lumbar tfesi and sij injection. she still endorses some persistent low back pain, but it is tolerable. also notes some cramping in left leg at night. uses tramadol and baclofen. denies adverse med side effects. cc:: CC: Gianna Kelley MD Review of Systems ROS Status of ROS 10 or more systems reviewed and unremark able except as noted in history and below PFSH [facility] Medical History Osteoarthritis ?M19.90 - Unspecified osteoarthritis, unspecified site (ICD-10) Low back pain ?M54.50 - Low back pain, unspecified (ICD-10) Hiatal hernia ?K44.9 - Diaphragmatic hernia without obstruction or gangrene (ICD-10) Obesity ?E66.9 - Obesity, unspecified (ICD-10) Heart murmur ?R01.1 - Cardiac murmur, unspecified (ICD-10) Surgical History History of ear surgery ?Z98.890 - Other specified postprocedural states (ICD-10) History of phacoemulsification of cataract with intraocular lens implantation ?Z98.49 - Cataract extraction status, unspecified eye (ICD-10) ?Z96.1 - Presence of intraocular lens (ICD-10) Hx of appendectomy ?Z90.49 - Acquired absence of other specified parts of digestive tract (ICD- 10) H/O: hysterectomy ?Z90.710 - Acquired absence of both cervix and uterus (ICD-10) History of tonsillectomy ?Z90.89 - Acquired absence of other organs (ICD-10) Meds Home Medications and Allergies Home Medications ?Medication ?Instructions ?Recorded ?Confirmed ?Type aspirin 81 mg tablet,delayed 81 mg PO DAILY 02/26/23 09/25/24 History release (Adult Low Dose Aspirin) denosumab 60 mg/mL subcutaneous 60 mg subcut .Q6 MONTHS 02/26/23 09/25/24 History syringe (Prolia) niacin 500 mg tablet 500 mg PO DAILY 02/26/23 09/25/24 History losartan 25 mg tablet 25 mg PO DAILY 03/01/23 09/25/24 History antiarthritic combination no.2 900 2 mg PO DAILY 07/15/23 09/25/24 History mg tablet (glucosamine-chondroitin) calcium 600 mg (as 2 cap PO DAILY 07/15/23 09/25/24 History carbonate)-vitamin D3 5 mcg (200 unit) capsule (Calcium 600 + D(3)) magnesium glycinate 100 mg (as 100 mg PO BID 07/15/23 09/25/24 History glycinate) tablet (Mag Glycinate) multivitamin (Daily Multi-Vitamin 1 tab PO DAILY 07/15/23 09/25/24 History tablet) omega 6-usj-xyi-fish oil 1,200 mg 2 cap PO DAILY 07/15/23 09/25/24 History (144 mg-216 mg) capsule (Fish Oil) vit C 250 mg-vit E 90 mg-zinc 40 1 tab PO BID 07/15/23 09/25/24 History mg-copper 1 xp-okuzde-kxiczs capsule (PreserVision AREDS-2) vit C 250 mg-vit E 90 mg-zinc 40 1 tab PO BID 07/15/23 09/25/24 History mg-copper 1 ba-oaopir-tvpzrm capsule (PreserVision AREDS-2) vitamin K2 100 mcg capsule 100 mcg PO DAILY 07/15/23 09/25/24 History cholecalciferol (vitamin D3) 50 2,000 unit PO BID 01/11/24 09/25/24 History mcg (2,000 unit) capsule (Vitamin D3) tramadol 50 mg tablet 50 mg PO BID PRN pain #60 tabs 06/02/24 09/25/24 Rx zonisamide 50 mg capsule 150 mg (3 x 50 mg) PO .qhs #270 06/30/24 09/25/24 Rx caps baclofen 10 mg tablet 10 mg PO BID PRN muscle spasm #180 09/13/24 09/25/24 Rx tabs tramadol 50 mg tablet See Rx Instructions .Route 09/28/24 Rx .COMPLEX PRN pain #75 tabs zonisamide 50 mg capsule See Rx Instructions .Route 10/02/24 Rx .COMPLEX #90 caps Allergies Allergy/AdvReac Type Severity Reaction Status Date / Time No Known Drug Allergies Allergy Verified 09/25/24 08:23 Exam Narrative Exam Narrative: Psych-alert and oriented x 3. Attentive and appropriate, constitutionally normal, displays normal mood and affect per situation.? There are no obvious deficits in memory, reasoning, or intellect.? Skin-no obvious rashes, bruising, erythema noted to the patient's area of pain. Extremities- extremities are warm with minimal edema and palpable pulses. Lumbar-no significant tenderness to palpation noted in the lumbar spine and paraspinal musculature.? Pain is elicited with extension, and lateral rotation of the lumbar spine. Range of motion is slightly diminished with these motions due to pain. Facet loading maneuvers are positive bilaterally and do appear to be concordant with the patient's normal complaints of pain.? Coordination remains intact.? Gait remains non-antalgic. Assessment and Plan Assessment and Plan (1) Lumbar spondylosis: (2) Lumbar radiculopathy: (3) Lumbar stenosis with neurogenic claudication: Plan 79yof who presents for assessment. notes good relief after recent lumbar tfesi and sij injection. imaging reviewed, which is significant for multilevel facet arthropathy. discussed that she would be good candidate for lumbar medial branch blocks and potentially rfa. we will hold off on this for now. also discussed that given the extent of her stenosis, she may be a candidate for spinal cord stim. provided her with info. she has seen 3 spine surgeons, and they all have said that she is not a candidate for spine surgery. meds reviewed, no changes. follow up in 3 months.
== END 2024-10-02 11:13 | disposition home or self-care (01) ==
LOC: PM 11:12
PROVIDERS: PCP Nurse Practitioner Family; Visit Provider Anesthesiology
DX: M47.816 Spondylosis without myelopathy or radiculopathy, lumbar region (principal); M54.16 Radiculopathy, lumbar region; M48.062 Spinal stenosis, lumbar region with neurogenic claudication
CPT/HCPCS: G0463

== ENCOUNTER 2025-01-04 08:51 | Outpatient (OUT) | payer MEDICARE, BC, SELFPAY ==
--- NOTE | 2025-01-04 09:22 | P.CN_ITS ---
Consult Note: HPI Data of Consult Patient: known to practice within the last 3 years Requesting Physician: Bessy Johnson NP Primary Care Provider: KIEL ALMODOVAR Consult Narrative Reason for consult: f/u Narrative: 79 year old female presents for evaluation of chronic left shoulder pain, low back pain, and SIJ pain. Pain today 5/10 sharp burning, increasing to 10/10 with standing, walking, twisting, pushing, pulling. currently utilizing tylenol, baclofen, tramadol, zonegran, and advil with benefit without side effects. has failed to benefit from > 6 weeks of PT and provider guided HEP, heat, ice, tylenol, NSAIDs, and oral steroids. previously underwent right L4-5 L5-S1 TFESI and right SIJ injection with >50% improvement greater than 3 months but has since worn off. previously underwent left suprascapular/axillary nerve block with 90% improvement in pain and functional improvement while anesthetized, preop pain up to 10/10 post op pain 1/10. pt would like to discuss RFA. cc:: CC: Bessy Johnson NP Review of Systems ROS Status of ROS 10 or more systems reviewed and unremark able except as noted in history and below Musculoskeletal Reports: back pain, extremity pain and joint pain PFSH PFSH Medical History Osteoarthritis ?M19.90 - Unspecified osteoarthritis, unspecified site (ICD-10) Low back pain ?M54.50 - Low back pain, unspecified (ICD-10) Hiatal hernia ?K44.9 - Diaphragmatic hernia without obstruction or gangrene (ICD-10) Obesity ?E66.9 - Obesity, unspecified (ICD-10) Heart murmur ?R01.1 - Cardiac murmur, unspecified (ICD-10) Surgical History History of ear surgery ?Z98.890 - Other specified postprocedural states (ICD-10) History of phacoemulsification of cataract with intraocular lens implantation ?Z98.49 - Cataract extraction status, unspecified eye (ICD-10) ?Z96.1 - Presence of intraocular lens (ICD-10) Hx of appendectomy ?Z90.49 - Acquired absence of other specified parts of digestive tract (ICD- 10) H/O: hysterectomy ?Z90.710 - Acquired absence of both cervix and uterus (ICD-10) History of tonsillectomy ?Z90.89 - Acquired absence of other organs (ICD-10) Meds Home Medications and Allergies Home Medications ?Medication ?Instructions ?Recorded ?Confirmed ?Type aspirin 81 mg tablet,delayed 81 mg PO DAILY 02/26/23 09/25/24 History release (Adult Low Dose Aspirin) denosumab 60 mg/mL subcutaneous 60 mg subcut .Q6 MONTHS 02/26/23 09/25/24 History syringe (Prolia) niacin 500 mg tablet 500 mg PO DAILY 02/26/23 09/25/24 History losartan 25 mg tablet 25 mg PO DAILY 03/01/23 09/25/24 History antiarthritic combination no.2 900 2 mg PO DAILY 07/15/23 09/25/24 History mg tablet (glucosamine-chondroitin) calcium 600 mg (as 2 cap PO DAILY 07/15/23 09/25/24 History carbonate)-vitamin D3 5 mcg (200 unit) capsule (Calcium 600 + D(3)) magnesium glycinate 100 mg (as 100 mg PO BID 07/15/23 09/25/24 History glycinate) tablet (Mag Glycinate) multivitamin (Daily Multi-Vitamin 1 tab PO DAILY 07/15/23 09/25/24 History tablet) omega 1-pmx-mlx-fish oil 1,200 mg 2 cap PO DAILY 07/15/23 09/25/24 History (144 mg-216 mg) capsule (Fish Oil) vit C 250 mg-vit E 90 mg-zinc 40 1 tab PO BID 07/15/23 09/25/24 History mg-copper 1 tx-zwphbk-wrumrl capsule (PreserVision AREDS-2) vit C 250 mg-vit E 90 mg-zinc 40 1 tab PO BID 07/15/23 09/25/24 History mg-copper 1 qr-yinyvu-cpxphx capsule (PreserVision AREDS-2) vitamin K2 100 mcg capsule 100 mcg PO DAILY 07/15/23 09/25/24 History cholecalciferol (vitamin D3) 50 2,000 unit PO BID 01/11/24 09/25/24 History mcg (2,000 unit) capsule (Vitamin D3) tramadol 50 mg tablet 50 mg PO BID PRN pain #60 tabs 06/02/24 09/25/24 Rx zonisamide 50 mg capsule 150 mg (3 x 50 mg) PO .qhs #270 06/30/24 09/25/24 Rx caps baclofen 10 mg tablet 10 mg PO BID PRN muscle spasm #180 09/13/24 09/25/24 Rx tabs tramadol 50 mg tablet See Rx Instructions .Route 09/28/24 Rx .COMPLEX PRN pain #75 tabs zonisamide 50 mg capsule See Rx Instructions .Route 10/02/24 Rx .COMPLEX #90 caps tramadol 50 mg tablet See Rx Instructions .Route 11/09/24 Rx .COMPLEX PRN pain #75 tabs tramadol 50 mg tablet See Rx Instructions .Route 12/19/24 Rx .COMPLEX PRN pain #75 tabs Allergies Allergy/AdvReac Type Severity Reaction Status Date / Time No Known Drug Allergies Allergy Verified 09/25/24 08:23 Exam Constitutional Documenting provider has reviewed patient's vital signs: yes Common normals: no apparent distress, oriented x3, healthy appearing, alert and well nourished General appearance: cooperative HENMT Common normals: normocephalic, hearing grossly normal bilaterally and moist oral mucous membranes Head and scalp: normocephalic Eye Common normals: PERRL Pupil: PERRL Neck & C-Spine Common normals: full ROM General: normal visual inspection Chest Common normals: inspection of chest normal Respiratory Common normals: normal respiratory effort, no retractions and no use of accessory muscles Back & Pelvis Lumbar spine/lower back: ROM limited, pain with ROM and straight leg raise positive right Sacroiliac joints: SI joint(s) abnormal Other: right positive angel(patricks), gaenslens, thigh thrust, compression test positive facet loading decreased sensation right L4,5,S1 Extremity Common normals: normal to inspection and full ROM Left upper extremity: shoulder joint Right lower extremity: hip joint Left lower extremity: hip joint Other: left shoulder positive empty can, posterior liftoff, crossbody adduction and pain with ROM bilateral hips pain with internal and external rotation right >left Neuro Common normals: oriented x3 Sensorium/orientation: alert Motor exam: no movement abnormalities noted Psych Common normals: mental status grossly normal, thought process normal, cooperative, affect normal, speech normal and activity/motor behavior normal Speech: normal speech Thought process: normal thought process Assessment and Plan Assessment and Plan (1) Lumbar stenosis with neurogenic claudication: (2) Sacroiliitis: (3) Bilateral primary osteoarthritis of hip: (4) Osteoarthritis of left shoulder: (5) Chronic prescription opiate use: Assessment and Plan: risks vs benefits reviewed, has failed to benefit from tylenol motrin aleve and diclofenac. finds benefit to tramadol 50mg BID PRN without side effects (6) Chronic left shoulder pain: Plan MELANIA 29% with moderate to severe pain with ADLs, standing, walking, lifting, sleeping repeat right L4-5 L5-S1 TFESI under fluoroscopy for lumbar stenosis with NC, previous injection provided >50% improvement for 3 months. consider repeat right SIJ injection proceed with left suprascapular/axillary RFA for chronic left shoulder pain/OA under fluoroscopy continue current medications f/u 2 weeks after TFESI and 1 month after RFA
== END 2025-01-04 08:52 | disposition home or self-care (01) ==
PROVIDERS: PCP Nurse Practitioner Family; Visit Provider Nurse Practitioner
DX: M48.062 Spinal stenosis, lumbar region with neurogenic claudication (principal); M46.1 Sacroiliitis, not elsewhere classified; M16.0 Bilateral primary osteoarthritis of hip; M19.012 Primary osteoarthritis, left shoulder; Z79.891 Long term (current) use of opiate analgesic; M25.512 Pain in left shoulder
CPT/HCPCS: G0463

== ENCOUNTER 2025-01-15 07:31 | Day surgery (SDC) | payer MEDICARE, BC, SELFPAY ==
--- OUTSIDE RECORDS SUMMARY | 2025-01-15 07:34 | XMS_ITS | CCD ---
Author Organization [facility] Care Team Providers Care Trimmer And Reinforcer Name Role Phone DARA EMRE Mario Alberto Unavailable Unavailable DARA, EMRE Mario Alberto Unavailable Unavailable KAT NOBLE Unavailable Unavailable Luis Thomas Unavailable MARTHA, DR LUIS Becker Primary Care Unavailable MARTHA, DR LUIS Becker Admitting Unavailable MARTHA, DR LUIS Becker Attending Unavailable LEES ., DR YULI Nguyen Attending Unavailable LEES ., DR YULI Nguyen Admitting Unavailable LEES ., DR YULI Nguyen Consulting Unavailable MARTHA, DR LUIS Becker Primary Care Unavailable JOSE MANUEL LUAN Consulting Unavailable LAKSHMIPATHY ., MORRIS Consulting Johanny [...] LUIS Becker Primary Care Unavailable LAKSHMIPATHY ., NARHARVINDER Admitting Johanny vailable LAKSHMIPATHY ., MORRIS Attending Johanny vailable MARTHA, DR LUIS Becker Primary Care Unavailable [place], DR YOUSUF Ferguson Consulting Unavailable MARTHA, DR [...] Primary Care Unavailable LEES ., DR YULI Nguyne Admitting Unavailable LEES ., DR YULI Nguyen Attending Unavailable [place], DR YOUSUF Ferguson Consulting Unavailable THOMAS, DR [...] Unavailable Wiley Price MD Primary Care Provider [phone] Gijose l PALM, Andrius Ram Attending Unavailable Giedraitis , Andrius Vytautorlin Attending Unavailable Giedraitis , Andrius Vytautas Attending Unavailable Giradhaitis , Andrius Vytautas Attending Unavailable Giradhaitis , Andrius Vytjosué Attending Unavailable DUSTY NASSAR Attending Unavailable DUSTY NASSAR Attending Unavailable DUSTY NASSAR Attending Unavailable DUSTY NASSAR Attending Unavailable DUSTY NASSAR Attending Unavailable KRISS VELEZ Attending Unavailable KRISS VELEZ Referring Unavailable DUSTY NASSAR Attending Unavailable KIZZY DUSTY D Attending Unavailable MARIEL NASSARNATRIO Aguilar Attending Unavailable Allergies Allergy Classification Reported Allergen(s) Allergy Type Date of Onset Reaction(s) Facility (1 source) ALLERGIES NOT ON FILE; Translations: [ALLERGIES NOT ON FILE] Propensity to adverse reactions (disorder) [facility] Repository Medications Current Medications Medication Drug [...] / zinc oxide 17.4 mg oral capsule (11 sources) Vitamin C Multiple Vitamins-Mineral s (PreserVision AREDS 2) capsule 1 (one) time each day at the same time Active PreserVision ARE DS 2 - as directed Orally Active aspirin 81 mg delayed release oral tablet (11 sources) Platelet Aggregation Inhibitor, Nonsteroidal Anti-inflammatory Drug aspirin 81 MG EC tab let 1 (one) time each day at the same time Active take 1 tablet by mouth once ginger y Aspirin 81 81 MG 1 tablet Orally Once a day Active baclofen 10 mg oral tablet (12 sources) gamma-Aminobutyric Acid-ergic Agonist Start: 04-30-2023 baclofen (Lioresal) 10 MG tablet every 12 (twelve) hours 04/30/2023 Active take 1 tablet by mouth every twe lve hours Baclofen 10 MG 1 tablet as needed Orally Twice a day Active calcium carbonate 1500 mg oral tablet (11 sources) take 1 tablet by arminda th once at mealtime calcium carbonate (Super Calcium) 1500 (600 Ca) MG tablet 1 tablet with meals Orally Once Active take 1 tablet by mouth every twe lve hours Calcium 600 MG 1 tablet with meals Orally Twice a day Active cholecalciferol 0.025 mg ora l tablet (11 sources) Vitamin D cholecalciferol (Vitamin D3) 25 MCG (1000 UT) tablet 1 (one) time each day at the same time Active take 1 tablet by arminda th every twenty-four hours Vitamin D 50 MCG (2000 UT) 1 tablet Orally Once a day Active chondroitin sulfates 400 mg / glucosamine sulfate 500 mg / methylsulfonylmethane 167 mg oral tablet (6 sources) Glucosamine-Eugene droitin-MSM (Ojzxkk-Omsuo-SQG-Double Str) 500-400-167 MG tablet every 12 (twelve) hours Active 1 ml denosumab 60 mg/ml prefilled syringe (12 sources) RANK Ligand Inhibitor denosumab (Prolia) 6 0 MG/ML solution prefilled syringe as directed Subcutaneous Active Fish Oils (5 sources) take 1 capsule by mouth once daily Fish Oil 1000 MG 1 capsule Orally Once a day Active Xhxfgs-Eyuf-IED-Ca-C-CtCl -SeCu - (5 sources) Dzqkoy-Xvvx-FUT- Ax-V-AxFk-SeCu - as directed Orally Active losartan potassium 25 mg oral tablet (12 sources) Angiotensin 2 Receptor Héctor Star t: 12-27 losartan (Cozaar) 25 MG tabl et Oral for 90 Days 02/19/2023 Active Magnesium glycinate (11 sources) Magnesium Glycin ate 100 MG capsule 2 capsules 1 (one) time each day at the same time Active Magnesium Glycin ate 100 MG as directed Orally Active Multiple Vitamins-Minerals (Womens 50+ Multi Vitamin) tablet (6 sources) Multiple Vitamins-Minerals (Womens 50+ Multi Vitamin) tablet as directed Orally Active niacin 500 mg oral tablet (11 sources) Nicotinic Acid niacin 500 MG ta blet 1 (one) time each day at the same time Active Honobia-3 Fatty Acids (Fish Oil) 1200 MG capsule delayed-release (6 sources) take 1 capsule by mouth every twelve hours Honobia-3 Fatty Acids (Fish Oil) 1200 MG capsule delayed-release 1 capsule every 12 (twelve) hours Active traMADol hydrochloride 50 mg oral tablet (6 sources) Opioid Agonist Start: 024 take 1 tablet by mouth twice daily as needed for pain traMADol (Ultram) 50 MG tablet TAKE 1 TABLET BY MOUTH TWICE A DAY NEEDED FOR PAIN MUST LAST 30 DAYS 01/27/2024 Active vitamin k 0.1 mg oral tablet (5 sources) Vitamin K2 100 M CG as directed Orally Active vitamin k2 0.1 mg oral capsule (6 sources) Menaquinone-7 (V itamin K2) 100 MCG capsule as directed Orally Active Womens 50+ Multi Vitamin - (5 sources) Womens 50+ Multi Vitamin - as directed Orally Active zonisamide 50 mg oral capsule (11 sources) Anti-epileptic Agent take 3 capsules by mouth once daily at bedtime zonisamide (Zonegran) 50 MG capsule TAKE 3 CAPSULES BY MOUTH EVERY DAY AT BEDTIME Active Zonisamide 50 MG as directed Orally Active Completed/Discontinued Medications Medication Drug Class(es) Dates Sig (Normalized) Sig (Original) 0.05 ml aflibercept 40 mg/ml injection (2 sources) Vascular Endothelial Growth Factor Inhibitor Start: 09-26-2024 End: 09-26-2024 2 mg, Intravitreal, Once PRN Procedure, Starting on Wed09/26/24 at 0937, For 1 dose Start: 07-25-2024 End: 07-25-2024 2 mg, Intravitreal, [...] Classification Problem Date Documented Date Episodic/Chronic Cataract (7 sources) 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; Translations: [Other [...] unspecified] Chronic Other aftercare (3 sources) Other long chain beamer (current) drug therapy; Translations: [OT M[facility] CURRENT DRUG THERAPY] Onset: 03-12-2022 Episodic Other [...] Retinal detachments; defects; vascular occlusion; and retinopathy (15 sources) Exudative age-related macular degeneration; Translations: [Exudative [...] that caused by tuberculosis or sexually transmitteddisease) (6 sources) 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; Translations: [Unspecified blepharitis right eye, upper and lower eyelids] Onset: 10-11-2023 4 Episodic Other connective tissue disease (5 sources) Other muscle spasm; Translations: [OTHER MUSCLE SPASM] Onset: 05-02-2022 Episodic Other connective tissue disease (1 source) Muscle wasting and atrophy, not elsewhere classified, unspecified site; Translations: [MUSCLE WASTING ATROPHY NEC UNS SITE] Onset: 05-21-2022 Episodic Other connective tissue disease (1 source) Sarcopenia; Translations: [SARCOPENIA] Onset: 05-21-2022 Episodic Other eye disorders (6 sources) Dry eyes; Translations: [Dry eye syndrome [...] Results Test Name Value Interpretation Reference Range [facility] Rad[facility] Study observation (narrative) [facility] Optical coherence tomography study reporton 09-26-2024 [facility] Radiology Study observation (narrative) [facility] eye Ophthalmologic chata [facility] 07-25-2024 [facility] Radiology Study observation (narrative) [facility] Optical coherence tomography study reporton 07-25-2024 [facility] Radiology Study observation (narrative) [facility] Radiology Study observation (narrative) [facility] Optical coherence tomography study reporton 05-30-2024 [facility] Radiology Study observation (narrative) [facility] 36on 05-17-2023 36 Spoke with [...] refer her to someone who does SCS. [facility] 3605-14-2023 36 Left message for an velázquezbecca on identified voicemail that I had reviewed his imaging with Dr. Lopez. He does not recommend on surgery in the form of instrumented fusion or even foraminotomies/laminectom y as he has not found this to be helpful in patients with extensive scoliosis. May be candidate for spinal cord stimulation. Advised patient that I will call her back on Wednesday to follow-up regarding this. [facility] Telephoneon 05-14-2023 Telephone [phone] Jessica ice 1945 F Date Provider Department Center 05/14/2023 ALLISON SKAGGS [facility] SURG [place] Family History Problem Relation Age of Onset Other Mother Stomach cancer Father Family Status - Relation Status Age at Mother Father [facility] Consulton 05-13-2023 Consult [id number] Jessica ice 1945 F Date Provider Department Center 05/13/2023 GILES [facility] SURG Second Fl Family History Problem Relation Age of Onset Other Mother Stomach cancer Father Family Status - Relation Status Age at Mother Father Level of Service:45565 [place] OFFICE/OUTPATIENT NEW MODERATE MDM 45-59 MINUTES Reason for Visit and Comments: Consult [484] - Pt is here for a CO visit for Spinal Stenosis. [facility] 36on 04-16-2023 36 LVM for pt to call celia shanks to schedule with or Dr. Lopez for Lunbar Stenosis. Imaging requested from [place]. Normal [facility] MRI LSPINE WO CONon 02-11-20 23 [...] by: OFE COFFEY Date: 2023-02-10 07:16 Normal [facility] CALCIUMon 12-24-2022 Calcium [Mass/Vol] 9.7 mg/dL Normal 8.5-10.1 [facility] Comment on above: Performed By: #### C ADI John ####[facility] [address] [place], [place] [address]Ll. Holly Fisher CREATININEon 12-24-2022 Creatinine [Mass/Vol] 0.62 mg/dL Normal 0.55-1.02 [facility] Comment on above: Performed By: #### C A, CREA ####[facility] [address] [place], [place] [address]Rr. Holly Fisher EGFR-AF CANADIAN >60 Normal >=60 [facility] Comment on above: Performed By: #### C A, CREA ####[facility] [address] [place], [place] [address]Ml. Holly Fisher EGFR-NON AF CANADIAN >60 Normal >=60 [facility] Comment on above: Performed By: #### C A, CREA ####[facility] [address] [place], [place] [address]Gd. Holly Fisher Covid-19 PCR (CVDTB)on SARS-CoV-2 (COVID-19) RNA FRED+probe Ql (Unsp spec) Not detected Normal NOT DETECTED [facility] Comment on above: Result Comment: This test is not yet approved or cleared by the [place] FDA. When there are no FDA-approved or cleared tests available, and other criteria are met, FDA can make tests available under an emergency access mechanism called an Emergency Use Authorization (EUA). The EUA for this test is supported by the Certified Family Mediator of Health and Human Service's (HHS's) declaration [...] with SARS-CoV-2. Performed By: #### C VDTBH ####[facility] [address] [place] [address]Dr. Holly Fisher Covid-19 PCR (CVDTBH)on 07-28 SARS-CoV-2 (COVID-19) RNA FRED+probe Ql (Unsp spec) Not detected Normal NOT DETECTED [facility] Comment on above: Result Comment: This test is not yet approved or cleared by the [place] FDA. When there are no FDA-approved or cleared tests available, and other criteria are met, FDA can make tests available under an emergency access mechanism called an Emergency Use Authorization (EUA). The EUA for this test is supported by the Certified Family Mediator of Health and Human Service's (HHS's) declaration [...] consistent with SARS-CoV-2. Performed By: #### Celia VDTBH #### [facility] [address] [place] [address] Dr. Holly Fisher CALCIUMon 06-12-2022 Calcium [Mass/Vol] 9.0 mg/dL Normal 8.5-10.1 [facility] Comment on above: Performed By: ###XAVIER PEDRO ####[facility] [address] [place], [place] [address]Dr. Holly Fisher CREATININEon 06-12-2022 Creatinine [Mass/Vol] 0.65 mg/dL Normal 0.55-1.02 [facility] Comment on above: Performed By: ###XAVIER PEDRO #### [facility] [address] [place] [address] Dr. Holly Fisher EGFR-AF CANADIAN >60 Normal >=60 [facility] Comment on above: Performed By: #### XAVIER HOOD #### [facility] [address] [address] [address] Holly Fisher EGFR-NON AF CANADIAN >60 Normal >=60 [facility] Comment on above: Performed By: #### C XAVIER ALMEIDA #### [facility] [address] [address] [address] Holly Fisher XR LSPINE W_OBLS AND [...] YOUSUF ORTIZ Date: 2022-05-04 08:47 Normal [facility] CBC AUTO DIFFon 03-05-2022 BASO # 0.1 103/ul Normal 0.0-0.1 [facility] Comment on above: Performed By: #### C BC ####[facility] [address] [place] [address]Dr. Holly Fisher Basophils/100 WBC (Bld) 1.0 % Normal 0.2-2.0 [facility] Comment on above: Performed By: #### C BC ####[facility] [address] [place] [address]Dr. Holly Fisher EO # 0.2 103/ul Normal 0.0-0.7 [facility] Comment on above: Performed By: #### C BC ####[facility] [address] [place] [address]Dr. Holly Fisher Eosinophils/100 WBC (Bld) 2.4 % Normal 0.9-7.0 [facility] Comment on above: Performed By: #### C BC ####[facility] [address] [place] [address]Dr. Holly Fisher Erythrocyte distribution width (RBC) [Ratio] 14.4 % Normal 11.0-15.0 [facility] Comment on above: Performed By: #### C BC ####[facility] [address] [place] [address]Dr. Holly Fisher Hematocrit (Bld) [Volume fraction] 41.1 % Normal 36.0-48.0 [facility] Comment on above: Performed By: #### C BC ####[facility] [address] [place], [place] [address]Dr. Holly Fisher Hemoglobin (Bld) [Mass/Vol] 13.4 g/dL Normal 12.0-16.0 [facility] Comment on above: Performed By: #### C BC ####[facility] [address] [place], [place] [address]Dr. Holly Fisher IG # 0.03 10e3/ul Normal 0.00-0.03 [facility] Comment on above: Performed By: #### C BC ####[facility] [address] [place], [place] [address]Dr. Holly Fisher IG % 0.5 % Normal 0.0-0.5 [facility] Comment on above: Performed By: #### C BC ####[facility] [address] [place], [place] [address]Dr. Holly Fisher LYMPH # 1.5 103/ul Normal 1.2-3.8 [facility] Comment on above: Performed By: #### C BC ####[facility] [address] [place], [place] [address]Dr. Holly Fisher Lymphocytes/100 WBC (Bld) 24.3 % Normal 20.5-60.0 [facility] Comment on above: Performed By: #### C BC ####[facility] [address] [place], [place] [address]Dr. Holly Fisher MANUAL DIFF REQ NO Normal [facility] Comment on above: Performed By: #### C BC ####[facility] [address] [place] [address]Dr. Holly Fisher MCH (RBC) [Entitic mass] 30.3 pg Normal 26.7-34.0 [facility] Comment on above: Performed By: #### C BC ####[facility] [address] [place] [address]Dr. Holly Fisher MCHC (RBC) [Mass/Vol] 32.6 g/dL Normal 29.9-35.2 [facility] Comment on above: Performed By: #### C BC ####[facility] [address] [place], [place] [address]Dr. Holly Fisher MCV (RBC) [Entitic vol] 93.0 fL Normal 81.0-99.0 [facility] Comment on above: Performed By: #### C BC ####[facility] [address] [place], [place] [address]Dr. Holly Pihllip MONO # 0.5 103/ul Normal 0.3-0.8 [facility] Comment on above: Performed By: #### C BC ####[facility] [address] [place], [place] [address]Dr. Holly Phillip Monocytes/100 WBC (Bld) 7.3 % Normal 1.7-12.0 [facility] Comment on above: Performed By: #### C BC ####[facility] [address] [place], [place] [address]Dr. Holly Fisher NEUT # 4.1 103/ul Normal 1.4-6.5 [facility] Comment on above: Performed By: #### C BC ####[facility] [address] [place], [place] [address]Dr. Holly Phillip Neutrophils/100 WBC (Bld) 64.5 % Normal 43.0-75.0 [facility] Comment on above: Performed By: #### C BC ####[facility] [address] [place], [place] [address]Dr. Holly Phillip Platelet mean volume (Bld) [Entitic vol] 10.5 fL Normal 9.5-13.5 [facility] Comment on above: Performed By: #### C BC ####[facility] [address] [place], [place] [address]Oj. Holly Fisher PLT 253 103/ul Normal 150-450 [facility] Comment on above: Performed By: #### C BC ####[facility] [address] [place], [place] [address]Nx. Holly Fisher RBC 4.42 106/ul Normal 4.20-5.40 [facility] Comment on above: Performed By: #### C BC ####[facility] [address] [place], [place] [address]Wg. Holly Fisher WBC 6.3 103/ul Normal 4.0-11.0 [facility] Comment on above: Performed By: #### C BC ####[facility] [address] [place], [place] [address]Zk. Holly Fisher LIPID PROFILEon 03-05-2022 CHOL-HDL RATIO NORM SEE BELOW Normal [facility] Comment on above: Result Comment: 3.3 - 4.4 LOW RISK 4.4 - 7.1 AVERAGE RISK 7.1 - 11.0 MODERATE RISK >11.0 HIGH RISK Performed By: #### L IPID, CMP #### [facility] [address] [address] [address] Holly Fisher Cholesterol [Mass/Vol] 263 mg/dL Critically high <=200 [facility] Comment on above: Performed By: #### L IPID, CMP #### [facility] [address] [address] [address] Holly Fisher Cholesterol in HDL [Mass/Vol] 63 mg/dL Critically high 40-60 [facility] Comment on above: Performed By: #### L IPID, CMP #### [facility] [address] [address] [address] Holly Fisher Cholesterol in LDL [Mass/Vol] 160.2 mg/dL Normal [facility] Comment on above: Performed By: #### L IPID, CMP #### [facility] [address] [address] [address] Holly Fisher Cholesterol.total/ Cholesterol in HDL [Mass ratio] 4.2 {ratio} Normal [facility] Comment on above: Performed By: #### L IPID, CMP #### [facility] [address] [address] [address] Holly Fisher HDL NORMAL > or = 60 mg/dl - LO W CARDIOVASCULAR RISK <40 mg/dl - HIGH CARDIOVASCULAR RISK Normal [facility] Comment on above: Performed By: #### L IPID, CMP #### [facility] [address] [address] [address] Holly Fisher LDL CALC NORMAL SEE BELOW Normal [facility] Comment on above: Result Comment: <100 mg/dl OPTIMAL 100 - 129 mg/dl NEAR OR ABOVE OPTIMAL 130 - 159 mg/dl BORDERLINE HIGH 160 - 189 mg/dl HIGH >190 mg/dl VERY HIGH Performed By: #### L IPID, CMP #### [facility] [address] [address] [address] Holly Fisher Triglyceride [Mass/Vol] 199 mg/dL Critically high <=150 [facility] Comment on above: Performed By: #### L IPID, CMP #### [facility] [address] [address] [address] Holly Fisher VLDL CALC 39.8 mg/dL Normal [facility] Comment on above: Performed By: #### L IPID, CMP #### [facility] [address] [place] [address] Dr. Holly Fisher MG MAMM SCREEN 3D SHERRIE CADon 03-05-2022 MG MAMM SCREEN 3D SHERRIE CAD Patient: LETTY COFFEY Exam Date: 03/05/2022 : 1945 Gender:F Ordering : DR LUIS THOMAS M.D. Admission #: [id number] Family : Order #: [id number] CLICK HERE TO VIEW EXAM RADIOLOGY REPORT [...] Treatments None Family Cancers None LOCATION: [facility] BREAST COMPOSITION: Scattered areas fibroglandular density. [...] on 03/05/2022 at 09:55 Normal [facility] PROF 14(COMP METB)on 022 Albumin [Mass/Vol] 3.9 g/dL Normal 3.4-5.0 [facility] Comment on above: Performed By: #### L IPID, CMP #### [facility] [address] [place] [address] Dr. Holly Fisher Albumin/Globulin [Mass ratio] 1.1 {ratio} Normal [facility] Comment on above: Performed By: #### L IPID, CMP #### [facility] [address] [place] [address] Dr. Holly Fisher ALP [Catalytic activity/Vol] 54 U/L Normal 46-116 [facility] Comment on above: Performed By: #### L IPID, CMP #### [facility] [address] [place] [address] Dr. Holly Fisher ALT [Catalytic activity/Vol] 22 U/L Normal 14-59 [facility] Comment on above: Performed By: #### L IPID, CMP #### [facility] [address] [address] [address] Holly Fisher Anion gap [Moles/Vol] 12.5 mmol/L Normal [facility] Comment on above: Performed By: #### L IPID, CMP #### [facility] [address] [place] [address] Dr. Holly Fisher AST [Catalytic activity/Vol] 14 U/L Critically low 15-37 [facility] Comment on above: Performed By: #### L IPID, CMP #### [facility] [address] [address] [address] Holly Fisher Bilirubin [Mass/Vol] 0.4 mg/dL Normal 0.2-1.0 [facility] Comment on above: Performed By: #### L IPID, CMP #### [facility] [address] [place] [address] Dr. Holly Fisher Calcium [Mass/Vol] 8.6 mg/dL Normal 8.5-10.1 [facility] Comment on above: Performed By: #### L IPID, CMP #### [facility] [address] [place] [address] Dr. Holly Fisher Chloride [Moles/Vol] 106 mmol/L Normal 98-107 [facility] Comment on above: Performed By: #### L IPID, CMP #### [facility] [address] [place] [address] Dr. Holly Fisher CO2 [Moles/Vol] 26.8 mmol/L Normal 21.0-32.0 [facility] Comment on above: Performed By: #### L IPID, CMP #### [facility] [address] [place] [address] Dr. Holly Fisher Creatinine [Mass/Vol] 0.60 mg/dL Normal 0.55-1.02 [facility] Comment on above: Performed By: #### L IPID, CMP #### [facility] [address] [place] [address] Dr. Holly Fisher EGFR-AF CANADIAN >60 Normal >=60 [facility] Comment on above: Performed By: #### L IPID, CMP #### [facility] [address] [place] [address] Dr. Holly Fisher EGFR-NON AF CANADIAN >60 Normal >=60 [facility] Comment on above: Performed By: #### L IPID, CMP #### [facility] [address] [place] [address] Dr. Holly Fisher Globulin (S) [Mass/Vol] 3.4 g/dL Normal [facility] Comment on above: Performed By: #### L IPID, CMP #### [facility] [address] [address] [address] Holly Fisher Glucose [Mass/Vol] 98 mg/dL Normal 74-106 [facility] Comment on above: Performed By: #### L IPID, CMP #### [facility] [address] [place] [address] Dr. Holly Fisher Potassium [Moles/Vol] 4.3 mmol/L Normal 3.5-5.1 [facility] Comment on above: Performed By: #### L IPID, CMP #### [facility] [address] [place] [address] Dr. Holly Fisher Protein [Mass/Vol] 7.3 g/dL Normal 6.4-8.2 [facility] Comment on above: Performed By: #### L IPID, CMP #### [facility] [address] [place] [address] Dr. Holly Fisher Sodium [Moles/Vol] 141 mmol/L Normal 136-145 [facility] Comment on above: Performed By: #### L IPID, CMP #### [facility] [facility] [address] [place] [address] Dr. Holly Fisher Urea nitrogen [Mass/Vol] 14.0 mg/dL Normal 7.0-18.0 [facility] Comment on above: Performed By: #### L IPID, CMP #### [facility] [address] [place] [address] Dr. Holly Fisher Urea nitrogen/Creatinin e [Mass ratio] 23.3 mg/mg Normal [facility] Comment on above: Performed By: #### L IPID, CMP #### [facility] [address] [place] [address] Dr. 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 Normal [facility] OPERATIVE REPORTon 7 [facility] LET[facility] CO[facility]Y : 49MED REC NO: [id number] ROOM:ACCOUNT NO: [id number] ADMISSION DATE: 04/27/17PHYSICIAN: EMRE STAPLETONDATE OF PROCEDURE: [...] used to engage the membrane in a yydnu-qsh-jujj technique andthe membrane was elevated from the [...] well without complications.EMRE Llanes DABBSD:04/27/2017 9:59:31 CD/[id number]_TJob#: [id number] Doc#: [id number] [facility] Vital Signs Date Time Vital Sign Value Performing Clinician Facility 06-30-2023 09:150400 Body height 158.75 cm Luis Thomas Other [facility] Other 06-30-2023 09:15-0400 Body mass index (BMI) [Ratio] 30.95 kg/m2 Luis Thomas Other [facility] Other 06-30-2023 09:150400 Body temperature 96.5 [degF] Luis Thomas Other [facility] Other 06-30-2023 09:150400 Body weight 78.02 kg Luis Thomas Other [facility] Other 06-30-2023 09:15-0400 Diastolic blood pressure 76 mm[Hg] Luis Thomas Other [facility] Other 06-30-2023 09:15-0400 Systolic blood pressure 156 mm[Hg] Luis Thomas Other [facility] Other 04-13-2023 15:00-0400 Body height 158.75 cm Luis Thomas Other [facility] Other 04-13-2023 15:00-0400 Body mass index (BMI) [Ratio] 31.49 kg/m2 Luis Thomas Other [facility] Other 04-13-2023 15:00-0400 Body weight 79.38 kg Luis Thomas Other [facility] Other 04-13-2023 15:00-0400 Diastolic blood pressure 78 mm[Hg] Luis Thomas Other [facility] Other 04-13-2023 15:00-0400 Systolic blood pressure 135 mm[Hg] Luis Thomas Other [facility] Other 03-18-2023 08:40-0400 Body height 158.75 cm Ej Thomas Other [facility] Other 03-18-2023 08:40-0400 Body mass index (BMI) [Ratio] 31.67 kg/m2 Ej Thomas Other [facility] Other 03-18-2023 08:40-0400 Body weight 79.83 kg Ej Thomas Other [facility] Other 03-18-2023 08:40-0400 Diastolic blood pressure 84 mm[Hg] Ejmojgan Thomas Other [facility] Other 03-18-2023 08:40-0400 Systolic blood pressure 134 mm[Hg] Ej Martha Other [facility] Other 01-21-2023 11:00-0400 Body height 158.75 cm Luis Thomas Other [facility] Other 01-21-2023 11:00-0400 Body mass index (BMI) [Ratio] 32.21 kg/m2 Luis Thomas Other [facility] Other 01-21-2023 11:00-0400 Body weight 81.19 kg Luis Thomas Other [facility] Other 01-21-2023 11:00-0400 Diastolic blood pressure 82 mm[Hg] Luis Thomas Other [facility] Other 01-21-2023 11:00-0400 SaO2% (BldA) [Mass fraction] 97 % Luis Thomas Other [facility] Other 01-21-2023 11:00-0400 Systolic blood pressure 142 mm[Hg] Luis Thomas Other [facility] Other Encounters Encounter Date Encounter Type Care Provider Facility Start: 12-06-2024 End: 12-06-2024 ambulatory DUSTY NASSAR Not Available Start: 10-02-2024 End: 10-02-2024 ambulatory Gianna Kelley MD Facility:[facility] Start: 09-26-2024 End: 09-26-2024 Bamboo flowsheet Dusty Nassar DO Work Phone: [facility] Start: 09-26-2024 End: 09-26-2024 Bamboo flowsheet Dusty Nassar DO Work Phone: [facility] Start: 09-26-2024 End: 09-26-2024 Follow-up encounter Dusty Nassar DO Work Phone: [facility] Comment on above: Follow-up; Retinal I njection; Macular Degeneration Start: 09-26-2024 End: 09-26-2024 ambulatory DUSTY NASSAR Not Available Start: 09-25-2024 End: 09-25-2024 ambulatory Andrius Vy[facility]utas [facility] Start: 09-18-2024 End: 09-18-2024 ambulatory Andrius Vytautas [facility]iedraitis [facility] Start: 09-11-2024 End: 09-11-2024 ambulatory [facility] Start: 08-21-2024 End: 08-21-2024 ambulatory Andrius Vytautas Giedraitis Facility: [facility] Start: 07-25-2024 End: 07-25-2024 Bamboo [...] [facility] Start: 05-30-2024 End: 05-30-2024 ambulatory DUSTY MIDDLETONER Not Available Start: 05-10-2024 End: 05-10-2024 ambulatory KRISS VELEZ Not Available Start: 04-05-2024 End: 04-05-2024 ambulatory DUSTY D LARRYHLER Not Available Start: 02-22-2024 End: 02-22-2024 ambulatory DUSTY D LARRYHLER Not Available Start: 01-07-2024 End: 01-07-2024 ambulatory DUSTY D ZAHLER Not Available Start: 12-10-2023 End: 12-10-2023 ambulatory DUSTY D LARRYHLER Not Available Start: 06-30-2023 End: 06-30-2023 ambulatory Luis Thomas Other [facility] Other Start: 06-30-2023 Office outpatient vi sit 15 minutes Luis Thomas [facility] Start: 05-18-2023 End: 05-18-2023 ambulatory Luis Thomas Other [facility] Other Start: 05-18-2023 Telephone encounter Luis Thomas [facility] Start: 05-13-2023 End: 05-14-2023 ambulatory [facility] Start: 05-13-2023 End: 05-13-2023 ambulatory [facility] Start: 04-16-2023 End: 04-17-2023 ambulatory [facility] Start: 04-13-2023 End: 04-13-2023 ambulatory Luis Thomas Other [facility] Other Start: 04-13-2023 Office outpatient vi sit 15 minutes Luis Thomas [facility] Start: 04-05-2023 End: 04-05-2023 ambulatory Ej Thomas Other [facility] Other Start: 04-05-2023 Telephone encounter Ej Thomas [facility] Start: 03-18-2023 End: 03-18-2023 ambulatory Ej Thomas Other [facility] Other Start: 03-18-2023 Office outpatient ne w 30 minutes Ej Thomas [facility] Start: 02-09-2023 End: 02-10-2023 ambulatory NARENDRANATH LAKSHMIPATHY . Facility:[facility] Start: 02-01-2023 ambulatory NARENDRANATH LAKSHMIPATHY . Facility:[facility] Start: 01-28-[address] LUIS THOMAS Facil ity:[facility] Start: 01-28-2023 End: 01-29-2023 ambulatory NARENDRANATH LAKSHMIPATHY . Facility:[facility] Start: 01-21-2023 End: 01-21-2023 ambulatory Luis Thomas Other [facility] Other Start: 01-21-2023 Office outpatient vi sit 15 minutes Luis Thomas [facility] Start: 01-12-2023 End: 01-12-2023 ambulatory NARENDRANATH LAKSHMIPATHY . Facility:[facility] Start: 12-31-2022 End: 01-01-[address] LUIS THOMAS Facility:[facility] Start: 12-28-2022 End: 12-28-[address] LUIS THOMAS Facility:[facility] Start: 12-24-2022 End: 12-25-[address] LUIS THOMAS Facility:[facility] Start: 10-07-2022 End: 10-08-2022 ambulatory SHAWNA RUIZ . Facility:[facility] Start: 09-03-2022 Encounter for preprocedural laboratory examination DR YULI LEES . [facility] Start: 09-01-2022 End: 09-01-[address] YULI LEES . Facility:[facility] Start: 08-28-2022 End: 08-29-[address] LUIS THOMAS Facility:[facility] Start: 08-28-2022 End: 08-29-2022 Encounter for preprocedural laboratory examination DR LUIS THOMAS Facility:[facility] Start: 08-11-2022 End: 08-11-[address] YULI LEES . Facility:[facility] Start: 08-08-2022 Encounter for preprocedural cardiovascular examination SHAWNA RUIZ . [facility] Start: 08-07-2022 End: 08-08-[address] [...] Facility:[facility] Start: 04-27-2017 End: 04-27-2017 Ambulatory EMRE STPALETON [facility] Procedures Date Procedure Procedure Detail Performing Clinician Start: 09-26-2024 Intravitreal njx pharmacologic agt spx Dusty Nassar DO Work Phone: Start: 09-26-2024 Computerized ophthalmic imaging retina Dusty Nassar DO Work Phone: Start: 07-25-2024 Intravitreal njx pharmacologic agt spx [...] 05/24/2025 10:00 AM EDT Office Visit [facility] [address] [place] [address] Kriss Velez, DO [address] [place] [address] [facility] Start: 09-26-2024 End: 09-26-2024 Clinical Support 09/26/2024 9:00 AM EST Clinical Support [facility] [address] [place] [address] Dusty Nassar DO [address] [place] [address] Arrived [facility] Comment on above: Arrived Start: 07-25-2024 End: 07-25-2024 Clinical Support 07/25/2024 1:45 PM EDT Clinical Support [facility] [address] [place] [address] Dusty Nassar DO [address] [place] [address] Arrived [facility] Comment on above: Arrived Start: 05-30-2024 End: 05-30-2024 Clinical Support 05/30/2024 9:45 AM EDT Clinical Support [facility] [address] [place] [address] Dusty Nassar DO [address] [place] [address] Arrived [facility] Comment on above: Arrived Start: 05-28-2024 Influenza vaccination Influenza Vacc ine (#1) [facility] Start: 02-26-2023 ambulatory Ambulatory Facility:[facility] Intravitreal Injection, Pharmacologic Agent - OD - Right Eye Intravitreal Injection, Pharmacologic Agent - OD - Right Eye Ophthalmology Routine 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 eye with active choroidal neovascularization (HCC) ([facility]/HCC) Ordered: 07/25/2024 [facility] Work Phone: Comment on above: Ordered: 07/25/2024 Intravitreal Injection, Pharmacologic Agent - OD - Right Eye Intravitreal Injection, Pharmacologic Agent - OD - Right Eye Ophthalmology Routine 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 eye with active choroidal neovascularization (HCC) ([facility]/HCC) Ordered: 05/30/2024 [facility] Work Phone: Comment on above: Ordered: 05/30/2024 Immunizations Immunization Date Immunization Notes Care Provider Fa cili 08-11-2024 influenza virus vacc ine, unspecified formulation Dusty Nassar DO Work Phone: [facility] 07-26-2023 influenza virus vacc ine, unspecified formulation Dusty Nassar DO Work Phone: [facility] Payers Date Payer Category Payer [facility] BCBS [id number] 2018 Unknown [id number] [id number]. [id number] 2017 Medicare [id number]. 1.13.693.2. [id number] 2014 Unknown [id number] 1959 [facility] [id number] 2.16.840.1.464341.19 1959 Medicare [id number] 2.16.840.1.300697.19 1959 Unknown [id number] 1947 Unknown [id number] 2.16.840.1.055862.3.579.2. 593 1947 Unknown [id number] 2.16.840.1.813377.3.579.2. 593 1947 Unknown [id number] 2.16.840.1.635863.3.579.2. 593 1947 Unknown [id number] 2.16.840.1.650954.3.579.2. 593 1947 Unknown [id number] 2.16.840.1.706785.3.579.2. 593 1947 Unknown [id number] 2.16.840.1.864758.3.579.2. 593 1947 Unknown [id number] 2.16.840.1.558588.3.579.2. 593 1947 Unknown [id number] 2.16.840.1.562233.3.579.2. 593 1947 Unknown [id number] 2.16.840.1.394834.3.579.2. 593 1947 Unknown [id number] 2.16.840.1.982306.3.579.2. 593 1947 Unknown [id number] 2.16.840.1.243773.3.579.2. 593 1947 Unknown [id number] 2.16.840.1.861624.3.579.2. 593 1947 Unknown [id number] 2.16.840.1.827164.3.579.2. 593 1947 Unknown [id number] 2.16.840.1.947960.3.579.2. 593 1947 Unknown [id number] 2.16.840.1.826005.3.579.2. 593 1947 Unknown [id number] 2.16.840.1.122938.3.579.2. 593 1947 Unknown [id number] 2.16.840.1.513709.3.579.2. 593 1947 Unknown [id number] 2.16.840.1.897644.3.579.2. 593 1947 Unknown [id number] 2.16.840.1.035648.3.579.2. 593 1947 Unknown [id number] 2.16.840.1.650445.3.579.2. 593 1947 Unknown [id number] 2.16.840.1.086732.3.579.2. 593 1947 Unknown [id number] 2.16.840.1.574232.3.579.2. 593 1947 Unknown [id number] 2.16.840.1.330437.3.579.2. 593 1947 Unknown [id number] 2.16.840.1.719699.3.579.2. 593 1947 Unknown [id number] 2.16.840.1.092711.3.579.2. 593 1947 Unknown [id number] 2.16.840.1.816522.3.579.2. 196 1947 Unknown [id number] 2.16.840.1.027678.3.579.2. 196 1947 Unknown [id number] 2.16.840.1.025612.3.579.2. 196 1947 Unknown [id number] 2.16.840.1.790229.3.579.2. 196 1947 Unknown [id number] 2.16.840.1.869852.3.579.2. 196 1947 Unknown [id number] 2.16.840.1.337447.3.579.2. 1259 1947 Unknown [id number] 2.16.840.1.039762.3.579.2. 1259 1947 Unknown [id number] 2.16.840.1.773083.3.579.2. 1259 1947 Unknown [id number] 2.16.840.1.441369.3.579.2. 1259 1947 Unknown [id number] 2.16.840.1.843008.3.579.2. 1259 1947 Unknown [id number] 2.16.840.1.627672.3.579.2. 9 1947 Unknown [id number] 2.16.840.1.811955.3.579.2. 9 1947 Unknown [id number] 2.16.840.1.196327.3.579.2. 1259 1947 Unknown [id number] 2.16.840.1.297194.3.579.2. 1259 Social History Date Type Detail Facility Unknown if ever smoked [facility] Other Start: 05-30-2024 End: 09-26-2024 Sex Assigned At [facility] Other Start: 10-11-2023 Tobacco smoking status [facility] Never smoked tobacco [facility] Start: 10-11-2023 Tobacco use and exposure Smokeless tobacco non-user [facility] Start: 05-30-2024 End: 09-26-2024 History of Social function [facility] Start: 1945 Sex assigned at Not on file N [facility] Clinical Notes 03-05-2022 to 09-26-2024 Dusty Nassar, DO - 09/26/2024 9:00 AM ESTDusty Nassar, DO - 07/25/2024 1:45 PM EDTDusty Nassar, DO - 05/30/2024 9:45 AM EDT Note Date & Type Note Facility 09-26-2024 Note Time Out 09/26/2024. 9:37 AM. Confirmed correct patient, procedure, site, and patient consented. Anesthesia Topical anesthesia was used. Anesthetic medications included Lidocaine 2%, Proparacaine 0.5%. Procedure Preparation included 5% betadine to ocular surface, eyelid speculum. Injection: 2 mg aflibercept 2 MG/0.05ML Route: Intravitreal, Site: Left Eye [facility]: 92647-238-38, Lot: [id number], Expiration date: 12/26/2025, Waste: 0 mL Post-op Post injection exam [...] increased pain, redness, decreased vision or concerns. [facility] 09-26-2024 Note Right Eye Quality was good. Scan locations included subfoveal. Progression has been stable. Findings include abnormal foveal contour, epiretinal membrane, intraretinal fluid, pigment epithelial detachment. Left Eye Quality was good. Scan locations included subfoveal. Progression has been stable. Findings include normal observations. Notes Good scan with normal appearance left eye (OS) [facility] 09-26-2024 History of Presen t illness Narrative Images from the original note were not included. Assessment/Plan Diagnoses and all orders for this visit: 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 eye with active choroidal neovascularization (CMS/HCC) - OCT, Retina - OU - Both Eyes - Intravitreal Injection, Pharmacologic Agent - OS - Left Eye - aflibercept (Eylea) syringe 2 mg - Continued maintenance treatment of wet age-related macular degeneration (ARMD) left eye (OS). This has been maintained with antiVEGF for some time. Cont to attempt to extend. Right eye (OD) carries PEDs with and epiretinal membrane (ERM) creating some macular thickening however this has remained stable and treatment has not impacted it either way. Hold on treatment at this time and watch. OCT, Retina - OU - Both Eyes Right Eye Quality was good. Scan locations included subfoveal. Progression has been stable. Findings include abnormal foveal contour, epiretinal membrane, intraretinal fluid, pigment epithelial detachment. Left Eye Quality was good. Scan locations included subfoveal. Progression has been stable. Findings include normal observations. Notes Good scan with normal appearance left eye (OS) Linked Images Intravitreal Injection, Pharmacologic Agent - OS - Left Eye Time Out 09/26/2024. 9:37 AM. Confirmed correct patient, procedure, site, and patient consented. Anesthesia Topical anesthesia was used. Anesthetic medications included Lidocaine 2%, Proparacaine 0.5%. Procedure Preparation included 5% betadine to ocular surface, eyelid speculum. Injection: 2 mg aflibercept 2 MG/0.05ML Route: Intravitreal, Site: Left Eye [facility]: 61853-417-68, Lot: [id number], Expiration date: 12/26/2025, Waste: 0 mL Post-op Post injection exam [...] vision or concerns. documented in this encounter [facility] 07-25-2024 Note Time Out 07/25/2024. 2:58 PM. Confirmed correct patient, procedure, site, and patient consented. Anesthesia Topical anesthesia was used. Anesthetic medications included Lidocaine 2%, Proparacaine 0.5%. Procedure Preparation included 5% betadine to ocular surface, eyelid speculum. Injection: 2 mg aflibercept 2 MG/0.05ML Route: Intravitreal, Site: Left Eye [facility]: [id number], Lot: [id number], Expiration date: 08/27/2025, Waste: 0 mL Post-op [...] increased pain, redness, decreased vision or concerns. [facility] 07-25-2024 Note Right Eye Quality was good. Scan locations included subfoveal. Progression has been stable. Findings include abnormal foveal contour, pigment epithelial detachment. Left Eye Quality was good. Scan locations included subfoveal. Progression has been stable. Findings include abnormal foveal contour. [facility] 07-25-2024 History of Presen t [...] 2 MG/0.05ML Route: Intravitreal, Site: Left Eye [facility]: 08586-608-86, Lot: [id number], Expiration date: 08/27/2025, Waste: 0 mL Post-op [...] vision or concerns. documented in this encounter [facility] 05-30-2024 Note Time Out 05/30/2024. 10:38 AM. Confirmed correct patient, procedure, site, and patient consented. Anesthesia Topical anesthesia was used. Anesthetic medications included Lidocaine 2%, Proparacaine 0.5%. Procedure Preparation included 5% betadine to ocular surface, eyelid speculum. Injection: 1.25 mg bevacizumab 100 MG/4ML Route: Intravitreal, Site: Left Eye [facility]: [id number], Lot: [id number], Expiration date: 08/14/2024, Waste: 0 mL Post-op [...] increased pain, redness, decreased vision or concerns. [facility] 05-30-2024 Note Right Eye Quality was good. Scan locations included subfoveal. Progression has improved. Findings include abnormal foveal contour, intraretinal fluid, pigment epithelial detachment. Left Eye Quality was good. Scan locations included subfoveal. Progression has been stable. Findings include abnormal foveal contour. [facility] 05-30-2024 History of Presen t illness Narrative Images from the original note were not included. Assessment/Plan Diagnoses and all orders for this visit: 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 eye with active choroidal neovascularization (HCC) ([facility]/HCC) - OCT, Retina - OU - [...] 100 MG/4ML Route: Intravitreal, Site: Left Eye [facility]: 58024-936-39, Lot: [id number], Expiration date: 08/14/2024, Waste: 0 mL Post-op [...] MG/ML solution prefilled syringe as directed Subcutaneous Hdbtgtedlyb-Zwocdwwwgmm-HHG (Qkejtg-Rfjdq-WSL-Double Str) 500-400-167 MG tablet every 12 (twelve) [...] time each day at the same time [place]-3 Fatty Acids (Fish Oil) 1200 MG capsule [...] Normal Normal Refraction Wearing Rx Sphere Cylinder [place] Add Right +2.50 -2.00 077 +3.25 Left [...] laser capsulotomy, they are to notify their talent acquisition project manager promptly if they have a significant change in symptoms, such as flashes of light (photopsia), an increase in floaters, loss of visual field or decrease in visual acuity. documented in this encounter [facility] 06-30-2023 Evaluation note Encounter Date Diagnosis Assessment Notes Jun, Acute non-recurrent maxillary sinusitis (ICD-10 - J01.00) Finish antibiotic, stay hydrated. Ok for NSAIDs for head pressure. Call if no improvement. [facility] Other 08-17-2023 NoteSUBJECTIVE: Chief complaint: Back and right leg pain. History of present illness: Consultation referred by pain management, Dr. Layton of [facility]. Patient reports chronic low back pain [...] found for any pre (more content not included)...[facility]08-17-2023 NoteSubjective: HPI: Letty Coffey is a [...] and assess x-rays of back. [facility] Mckeon [facility]* Encounter Date Diagnosis Assessment [...] is busy with other appts right now. [facility] 06-22-2023 Evaluation note* Encounter Date Diagnosis [...] long as possible before considering surgical intervention. [facility] Other 05-04-2023 NoteCONSULTATION CONSULTATION DATE: 01/28/2023 TO: [...] our patients to inform us about any irln-rri-thqnxau medications or herbal remedies/nutritional supplements/alternative remedies. 2. [...] treatment options with their primary care provider.[id number] Evaluation note * Encounter Date Diagnosis Assessment Notes Treatment Notes Treatment Clinical Notes Dec, Essential (primary) hypertension (ICD-10 - I10) new problem. rx handwritten. f/u 6 weeks. Dec, Other chronic pain (ICD-10 - G89.29) Dec, Pain in left shoulder (ICD-10 - M25.512) PT order given to pt. [facility] 04-06-2023 NoteCONSULTATION CONSULTATION DATE: 12/31/2022 TO: [...] our patients to inform us about any xuay-cds-nnpgdux medications or herbal remedies/nutritional supplements/alternative remedies. 2. [...] treatment options with their primary care provider.[facility] [id number] Note CONSULTATION PROCEDURE DATE: 10/07/2022 PREOPERATIVE DIAGNOSIS: [...] fan-like pattern. Patient tolerated the procedure well.[id number] NoteCONSULTATION CONSULTATION DATE: 10/07/2022 HISTORY OF PRESENT [...] sitting does decrease her pain. Medications include zcmh-bpw-hwradds Tylenol and the use of Salonpas patches. [...] otherwise indicated. Patient agrees with this plan.[facility]Pphpyyln07-10-2765 NoteCONSULTATION CONSULTATION DATE: 07/30/2022 This is a [...] be followed up at the office thereafter.[facility] [id number] NoteCONSULTATION CONSULTATION DATE: 06/25/2022 HISTORY OF PRESENT [...] patient is in agreement with this plan.[facility] [id number] NoteCONSULTATION CONSULTATION DATE: 05/19/2022 CHIEF COMPLAINT: Right [...] like to proceed. CC: Luis Thomas M.D.[facility] [id number] NoteCONSULTATION PROCEDURE DATE: 04/28/2022 PREOPERATIVE DIAGNOSIS: Right [...] Will be followed up in the office.[facility] [id number] NoteCONSULTATION CONSULTATION DATE: 04/28/2022 CHIEF COMPLAINT: Right [...] like to proceed. CC: Luis Thomas M.D.[facility] HospitalUstmclle07-23-8254 NotePROCEDURE: XR HIP RT 2 3V W PELVIS COMPARISON: None. HISTORY: Arthropathy FINDINGS: BONES:No acute fracture or dislocation. Mild osteoarthropathy with marginal osteophyte formation. 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 No visible soft tissue swelling. EFFUSION:None visible. OTHER: Negative. 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 Electronically authenticated by: YOUSUF ORTIZ Date: 2022-03-05 10:09[facility] Hospitalaluation noteNo InformationNofult[facility] [employer] Other evaluation note* Diagnosis 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 eye with active choroidal neovascularization (CMS/HCC)- Primary documented in this encounter [facility] Healthcare[facility] note* Diagnosis 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 eye with active choroidal neovascularization (HCC) (CMS/HCC)- Primary Right posterior capsular opacification Unspecified after-cataract documented in this encounter [facility] Healthcare[facility] note* Diagnosis 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 eye with active choroidal neovascularization (CMS/HCC)- Primary documented in this encounter [facility] HealthcareHistory general Narrative - Reported* Type Description Date Medical History Osteopenia Medical History COVID Medical History Hyperlipemia Medical History Menopause Medical History Cardiac murmur Medical History Elevated blood pressure reading Medical History Hip pain, right Medical History Medication management Surgical History APPENDECTOMY Surgical History ERINN AND BSO Surgical History TONSILLECTOMY Surgical History TYMPANOPLASTY Surgical History CHOLESTEOTOMA Surgical History COLONOSCOPY Hospitalization History SEE SURGICAL [facility] Other [facility] general Narrative - Reported* Type Description Date [...] growth surgery Hospitalization History SEE SURGICAL HX [facility] Other Summary Purpose Family History No Family History Records FoundNo Family History Records FoundNo Family History Records FoundNo Family History Records FoundNo Family History Records Found Advance Directives No Advanced Directives Records FoundNo Advanced Directives Records FoundNo Advanced Directives Records FoundNo Advanced Directives Records FoundNo Advanced Directives Records Found Additional Source Comments INFORMATION SOURCE (unrecogn ized section and content) DATE CREATED AUTHOR 03/23/2018 [facility] DATE CREATED AUTHOR AUTHOR'S ORGANIZ ATION 02/10/2023 [facility] DATE CREATED AUTHOR AUTHOR'S ORGANIZ ATION 05/19/2023 [facility] DATE CREATED AUTHOR AUTHOR'S ORGANIZ ATION 10/14/2024 [facility] DATE CREATED AUTHOR AUTHOR'S ORGANIZ ATION 12/08/2024 [facility] EPIC REASON FOR VISIT (unrecogniz ed section and content) Reason Comments Macular Degeneration Retinal Injection Reason Comments Follow-up Reason Comments Follow-up Retinal Injection Macular Degeneration Care Teams (unrecognized sec tion and content) [employer] Relationship Specialty Start Date End Date Wiley Price MD [address] [place] [address] [id number] PCP - General Family Medicine 12/10/23 Kimber Price MD [address] [place] [phone] Referring Physician Family Medicine 10/15/23 [employer] Relationship Specialty Start Date End Date Wiley Price MD [address] [place] [address] [id number] PCP - General Family Medicine 12/10/23 Kimber Price MD [address] [place] [address] [phone] Referring Physician Family Medicine 10/15/23 [employer] Relationship Specialty Start Date End Date Wiley Price MD [address] [place] [id number] PCP - General Family Medicine 12/10/23 Kimber Price MD [address] [place] [address] [phone] Referring Physician Family Medicine 10/15/23 FOR RECORDS [...] BE BASED ON THE PRIMARY CLINICAL RECORDS. [facility]. provides no warranty or guarantee of the accuracy or completeness of information in this document.
[2025-01-15 07:43] VITALS: BP 142/79; PULSE 84; TEMP 37.3; O2SAT 100
[2025-01-15 08:23] VITALS: BP 160/76; BP 164/76; PULSE 72; PULSE 74; O2SAT 98
--- NOTE | 2025-01-15 08:35 | W.PM.PROCNOT ---
Date of procedure: 01/15/25 Pre-op diagnosis: Pain due to left shoulder osteoarthritis Post-op diagnosis: same as pre-op Procedure: Procedure: Left suprascapular and axillary nerve radiofrequency ablation Medications: Bupivacaine 0.25% 2cc, depomedrol 40mg, lidocaine 2% 10cc The patient was seen and examined in the preoperative holding area. Informed consent was obtained and placed on the chart.? The patient was brought to the medical procedure unit and placed in the prone position. A timeout was completed verifying correct patient, procedure site, positioning, plan, and special equipment.? Using aseptic technique, under direct fluoroscopic visualization, a 20-gauge 15 cm with a 10 mm curved active tip radiofrequency cannula was advanced to the superior portion of the left posterior osseous rim of the glenoid fossa, lateral and superior to the spinal glenoid notch. Motor stimulation was carried out at 2 Hz up to 5 volts with the absence of extremity activity. Then radiofrequency lesioning was carried out for 90 seconds at 80 degrees.? The needle was then redirected 3 mm inferiorly and another lesioning was carried out for 90 seconds at 80 degree.? Using aseptic technique, under direct fluoroscopic visualization, another 20-gauge 15 cm with a 10 mm curved active tip radiofrequency cannula was advanced toward the most inferior and lateral border of the greater tubercle. Motor stimulation was carried out at 2 Hz up to 5 volts with the absence of extremity activity. Then radiofrequency lesioning was carried out for 90 seconds at 80 degrees.? The needle was then redirected 3 mm inferiorly and another lesioning was carried out for 90 seconds at 80 degree.? The patient was taken to the postprocedural recovery area and monitored for an appropriate length of time before being found suitable for discharge in the accompaniment of a responsible adult. Anesthesia: Local Surgeon: Gianna Kelley Pathology: none sent Condition: stable Disposition: no change
[2025-01-15] MEDS: LIDOCAINE HCL 2% 400 MG/20 ML MDV 8 ML INJ (08:38)
[2025-01-15] MEDS: BUPIVACAINE HCL 0.25% PF 25 MG/10 ML VIAL 2 ML INJ (08:38)
[2025-01-15] MEDS: METHYLPREDNISOLONE ACETATE 40 MG/ML VIAL INJ (08:38)
== END 2025-01-15 08:41 | disposition home or self-care (01) ==
LOC: SURGOUT 07:32
PROVIDERS: PCP Nurse Practitioner Family; Visit Provider Anesthesiology
DX: M19.012 Primary osteoarthritis, left shoulder (principal); M25.512 Pain in left shoulder
CPT/HCPCS: 64640; J0665; J1010

== ENCOUNTER 2025-01-29 09:05 | Day surgery (SDC) | payer MEDICARE, BC, SELFPAY ==
[2025-01-29 09:59] VITALS: BP 132/87; PULSE 79; TEMP 36.9; O2SAT 99
[2025-01-29 10:36] VITALS: BP 141/67; PULSE 78; O2SAT 97
[2025-01-29] MEDS: BUPIVACAINE HCL 0.25% PF 25 MG/10 ML VIAL INJ (10:37)
[2025-01-29] MEDS: LIDOCAINE HCL 2% 400 MG/20 ML MDV 3 ML INJ (10:37)
[2025-01-29] MEDS: 0.9 % SODIUM CHLORIDE 10 ML SYRINGE - SALINE FLUSH INJ (10:37)
[2025-01-29] MEDS: IOHEXOL 240 MG/ML - 10 ML VIAL INJ (10:37)
[2025-01-29] MEDS: METHYLPREDNISOLONE ACETATE 80 MG/ML VIAL INJ (10:38)
[2025-01-29 10:39] VITALS: BP 158/82; PULSE 76; O2SAT 96
--- NOTE | 2025-01-29 10:41 | P.ON_ITS ---
Date of procedure: 01/29/25 Pre-op diagnosis: Pain due to lumbar stenosis with neurogenic claudication Post-op diagnosis: same as pre-op Procedure: Procedure: Right L4-5, L5-S1 transforaminal epidural steroid injection Medications: Bupivacaine 0.25% 2cc, lidocaine 2% 1cc, depomedrol 80mg The patient was seen and examined in the preoperative holding area.? Informed consent was obtained and placed on the chart.? Patient was brought to the medical procedure unit and placed in the prone position where a timeout was completed verifying the correct patient, procedure site, position, and planned special equipment using sterile aseptic technique.? Under direct fluoroscopic visualization a 25-gauge Quincke tipped spinal needle was advanced to the designated neural foramen where contrast dye was injected to show adequate spread.? The needle was inserted at level right L4-5. There was no evidence of vascular or adverse uptake.? Epidural spread was appreciated.? The above- mentioned injectate was then placed in a 1.5 mL aliquot preceded by negative aspiration.? The needle was removed. The needle was inserted and the procedure repeated at level right L5-S1.? The surgery site was covered.? Patient was taken to the postprocedural recovery area and monitored for an appropriate length of time before found suitable for discharge in the accompaniment of a responsible adult. Anesthesia: Local Surgeon: Gianna Kelley Pathology: none sent Condition: stable Disposition: no change
== END 2025-01-29 10:46 | disposition home or self-care (01) ==
PROVIDERS: PCP Nurse Practitioner Family; Visit Provider Anesthesiology
DX: M48.062 Spinal stenosis, lumbar region with neurogenic claudication (principal); M54.50 Low back pain, unspecified
CPT/HCPCS: 64483; 64484; J0665; J1010; Q9966

== ENCOUNTER 2025-02-07 09:47 | Outpatient (OUT) | payer MEDICARE, BC, SELFPAY ==
[2025-02-07 10:50] LABS: Calcium 9.1 mg/dL (8.5-10.1); Estimated GFR (African America >60 (>=60 mL/min/1.73m^2); Estimated GFR (Non-African Ame >60 (>=60 mL/min/1.73m^2)
== END 2025-02-07 09:48 | disposition home or self-care (01) ==
LOC: LAB 09:50
PROVIDERS: PCP Nurse Practitioner Family; Visit Provider Nurse Practitioner Family
DX: M81.0 Age-related osteoporosis without current pathological fracture (principal)
CPT/HCPCS: 36415; 82310; 82565

== ENCOUNTER 2025-02-09 07:34 | Outpatient (RCR) | payer MEDICARE, BC, SELFPAY ==
[2025-02-09 08:37] VITALS: BP 122/75; PULSE 71; TEMP 36.3; O2SAT 98
[2025-02-09] MEDS: DENOSUMAB 60 MG/ML SYRINGE SQ (08:55)
== END 2025-02-12 07:51 | disposition home or self-care (01) ==
LOC: INF 07:34
PROVIDERS: PCP Nurse Practitioner Family; Visit Provider Nurse Practitioner Family
DX: M81.0 Age-related osteoporosis without current pathological fracture (principal)
CPT/HCPCS: 96372; J0897

== ENCOUNTER 2025-02-14 09:38 | Outpatient (OUT) | payer MEDICARE, BC, SELFPAY ==
--- OUTSIDE RECORDS SUMMARY | 2025-02-14 09:43 | XMS_ITS | CCD ---
Author Organization [facility] Care Team Providers Care Software Educator Name Role Phone EMRE STAPLETON Unavailable Unavailable EMRE STAPLETON Unavailable Unavailable KAT NOBLE Unavailable Unavailable Emely Thomas Unavailable MARTHA, DR EMELY Becker Primary Care Unavailable MARTHA, DR EMELY Becker Admitting Unavailable AMRTHA, DR EMELY Becker Attending Unavailable LEES ., [...] LEES ., DR YULI Nguyen Attending Unavailable HAWKINS, DR YOUSUF Ferguson Consulting Unavailable THOMAS, DR [...] Unavailable KRISS VELEZ Attending Unavailable KRISS VELEZ E Referring Unavailable DUSTY NASSAR Attending Unavailable DUSTY NASSAR Attending Unavailable DUSTY NASSAR Attending Unavailable Gijose l PALM, Andrius Vytautorlin Attending Unavailable Giedraitis , Andrius Vytautas Attending Unavailable Giradhaitis , Andrius Vytautas Attending Unavailable Giradhaitis , Andrius Vytautas Attending Unavailable Giradhaitis , Andrius Vytautas Attending Unavailable Giradhaitis , Andrius Vytautas Attending Unavailable Allergies Allergy Classification Reported Allergen(s) [...] mg oral tablet (6 sources) Glucosamine-Eugene droitin-MSM (Kfbmwc-Ajsjz-YUO-Double Str) 500-400-167 MG tablet every 12 (twelve) hours Active 1 ml denosumab 60 mg/ml prefilled syringe (12 sources) RANK Ligand Inhibitor denosumab (Prolia) 6 0 MG/ML solution prefilled syringe as directed Subcutaneous Active Fish Oils (5 sources) take 1 capsule by mouth once daily Fish Oil 1000 MG 1 capsule Orally Once a day Active Uskbnu-Imbv-XOM-Ca-C-CtCl -SeCu - (5 sources) Lwbjed-Kyqo-NIG- Oh-G-MqEs-SeCu - as directed Orally Active losartan potassium [...] each day at the same time Active Sheridan-3 Fatty Acids (Fish Oil) 1200 MG capsule delayed-release (6 sources) take 1 capsule by mouth every twelve hours Sheridan-3 Fatty Acids (Fish Oil) 1200 MG capsule [...] Chronic Other aftercare (3 sources) 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 Radiology Study observation (narrative) [facility] Radiology Study observation (narrative) [facility] Optical coherence tomography study reporton 07-25-2024 [facility] Radiology Study observation (narrative) [facility] Radiology Study observation (narrative) [facility] Optical coherence tomography study reporton 05-30-2024 [facility] Radiology Study observation (narrative) [facility] 36on 05-17-2023 36 Spoke with patient. [...] to someone who does SCS. [facility] 36on 05-14-2023 36 Left message for [...] back on Wednesday to follow-up regarding this. [facility] Telephoneon 05-14-2023 Telephone [id number] Naun Coffey ice 1945 F Date Provider Department Center 05/14/2023 ALLISON SKAGGS [facility] SURG Second Fl Family History Problem Relation Age of Onset Other Mother Stomach cancer Father Family Status - Relation Status Age at Mother Father [facility] Consulton 05-13-2023 Consult [id number] Naun Coffey ice 1945 F Date Provider Department Center 05/13/2023 ALLISON SKAGGS [facility] SURG Second Fl Family History Problem Relation Age of Onset Other Mother Stomach cancer Father Family Status - Relation Status Age at Mother Father Level of Service:39706 RI OFFICE/OUTPATIENT NEW MODERATE MDM 45-59 MINUTES Reason for Visit and Comments: Consult [484] - Pt is here for a CO visit for Spinal Stenosis. [facility] 36on 04-16-2023 36 LVM for pt to call jose shanks to schedule with or Dr. Lopez for Lunbar Stenosis. Imaging requested from [facility]. [facility] MRI LSPINE WO CONon 02-11-20 23 [...] by: OFE COFFEY Date: 2023-02-10 07:16 Normal [facility] CALCIUMon 12-24-2022 Calcium [Mass/Vol] 9.7 mg/dL Normal 8.5-10.1 [facility] Comment on above: Performed By: #### C A, CREA ####[facility] [address] [place], [place] [address]Oo. Holly Fisher CREATININEon 12-24-2022 Creatinine [Mass/Vol] 0.62 mg/dL Normal 0.55-1.02 [facility] Comment on above: Performed By: #### C A, CREA ####[facility] [address] [place] [id number]. Holly Fisher EGFR-AF PARAGUAYAN >60 Normal >=60 [facility] Comment on above: Performed By: #### C A, CREA ####[facility] [address] [place] [id number]. Holly Fisher EGFR-NON AF PARAGUAYAN >60 Normal >=60 [facility] Comment on above: Performed By: #### C A, CREA ####[facility] [address] [place], [place] [address]Dr. Holly Fisher Covid-19 PCR (CVDTB)on SARS-CoV-2 (COVID-19) RNA FRED+probe Ql (Unsp spec) Not detected Normal NOT DETECTED [facility] Comment on above: Result Comment: This test is not yet approved or cleared by the [place] FDA. When there are no FDA-approved or cleared tests available, and other criteria are met, FDA can make tests available under an emergency access mechanism called an Emergency Use Authorization (EUA). The EUA for this test is supported by the Batch Heat Treat Operator of Health and Human Service's (HHS's) declaration [...] with SARS-CoV-2. Performed By: #### C VDTBH ####[facility] [address] [place] [id number] Fisher [facility] 07-28 SARS-CoV-2 (COVID-19) RNA FRED+probe Ql (Unsp spec) Not detected Normal NOT DETECTED [facility] Comment on above: Result Comment: This test is not yet approved or cleared by the [place] FDA. When there are no FDA-approved or cleared tests available, and other criteria are met, FDA can make tests available under an emergency access mechanism called an Emergency Use Authorization (EUA). The EUA for this test is supported by the Batch Heat Treat Operator of Health and Human Service's (HHS's) declaration [...] SARS-CoV-2. Performed By: #### C VDTBH #### [facility] [address] [place] [address] Dr. Holly Fisher CALCIUMon 06-12-2022 Calcium [Mass/Vol] 9.0 mg/dL Normal 8.5-10.1 [facility] Comment on above: Performed By: #### C XAVIER ALMEIDA ####[facility] [address] [place] [id number]. Holly Fisher CREATININEon 06-12-2022 Creatinine [Mass/Vol] 0.65 mg/dL Normal 0.55-1.02 [facility] Comment on above: Performed By: #### XAVIER HOOD #### [facility] [address] [place] [address] Dr. Holly Fisher EGFR-AF PARAGUAYAN >60 Normal >=60 [facility] Comment on above: Performed By: #### XAVIER HOOD #### [facility] [address] [place] [address] [address] Holly Fisher EGFR-NON AF PARAGUAYAN >60 Normal >=60 [facility] Comment on above: Performed By: #### C XAVIER ALMEIDA #### [facility] [address] [place] [address] [address] Holly Fisher XR LSPINE W_OBLS AND [...] YOUSUF ORTIZ Date: 2022-05-04 08:47 Normal [facility] CBC AUTO DIFFon 03-05-2022 BASO # 0.1 103/ul Normal 0.0-0.1 [facility] Comment on above: Performed By: #### C BC ####[facility] [address] [place] [address]Dr. Holly Fisher Basophils/100 WBC (Bld) 1.0 % Normal 0.2-2.0 [facility] Comment on above: Performed By: #### C BC ####[facility] [address] [place] [address]DrHafsa Fisher EO # 0.2 103/ul Normal 0.0-0.7 [facility] Comment on above: Performed By: #### C BC ####[facility] [address] [place] [address]Dr. Holly Fisher Eosinophils/100 WBC (Bld) 2.4 % Normal 0.9-7.0 [facility] Comment on above: Performed By: #### C BC ####[facility] [address] [place] [address]Dr. Holly Fisher Erythrocyte distribution width (RBC) [Ratio] 14.4 % Normal 11.0-15.0 [facility] Comment on above: Performed By: #### C BC ####[facility] [address] [place], [place] [address]Dr. Holly Fisher Hematocrit (Bld) [Volume fraction] 41.1 % Normal 36.0-48.0 [facility] Comment on above: Performed By: #### C BC ####[facility] [address] [place], [place] [address]Dr. Holly Fisher Hemoglobin (Bld) [Mass/Vol] 13.4 g/dL Normal 12.0-16.0 [facility] Comment on above: Performed By: #### C BC ####[facility] [address] [place], [place] [address]Dr. Holly Fsiher IG # 0.03 10e3/ul Normal 0.00-0.03 [facility] Comment on above: Performed By: #### C BC ####[facility] [address] [place], [place] [address]Dr. Holly Fisher IG % 0.5 % Normal 0.0-0.5 [facility] Comment on above: Performed By: #### C BC ####[facility] [address] [place], [place] [address]Dr. Holly Fisher LYMPH # 1.5 103/ul Normal 1.2-3.8 [facility] Comment on above: Performed By: #### C BC ####[facility] [address] [place], [place] [address]Dr. Holly Fisher Lymphocytes/100 WBC (Bld) 24.3 % Normal 20.5-60.0 [facility] Comment on above: Performed By: #### C BC ####[facility] [address] [place], [place] [address]Dr. Holly Fisher MANUAL DIFF REQ NO Normal [facility] Comment on above: Performed By: #### C BC ####[facility] [address] [place] [id number]. Holly Phililp MCH (RBC) [Entitic mass] 30.3 pg Normal 26.7-34.0 [facility] Comment on above: Performed By: #### C BC ####[facility] [address] [place] [id number]. Lindaban Fisher MCHC (RBC) [Mass/Vol] 32.6 g/dL Normal 29.9-35.2 [facility] Comment on above: Performed By: #### C BC ####[facility] [address] [place] [address]Dr. Holly Fisher MCV (RBC) [Entitic vol] 93.0 fL Normal 81.0-99.0 [facility] Comment on above: Performed By: #### C BC ####[facility] [address] [place], [place] [address]Dr. Holly Fisher MONO # 0.5 103/ul Normal 0.3-0.8 [facility] Comment on above: Performed By: #### C BC ####[facility] [address] [place], [place] [address]Dr. Holly Fisher Monocytes/100 WBC (Bld) 7.3 % Normal 1.7-12.0 [facility] Comment on above: Performed By: #### C BC ####[facility] [address] [place], [place] [address]Dr. Holly Fisher NEUT # 4.1 103/ul Normal 1.4-6.5 [facility] Comment on above: Performed By: #### C BC ####[facility] [address] [place], [place] [address]Dr. Holly Fisher Neutrophils/100 WBC (Bld) 64.5 % Normal 43.0-75.0 [facility] Comment on above: Performed By: #### C BC ####[facility] [address] [place], [place] [address]Dr. Holly Fisher Platelet mean volume (Bld) [Entitic vol] 10.5 fL Normal 9.5-13.5 [facility] Comment on above: Performed By: #### C BC ####[facility] [address] [place], [place] [address]Cx. Lindaban Fisher PLT 253 103/ul Normal 150-450 [facility] Comment on above: Performed By: #### C BC ####[facility] [address] [place], [place] [address]Uz. Holly Fisher RBC 4.42 106/ul Normal 4.20-5.40 [facility] Comment on above: Performed By: #### C BC ####[facility] [address] [place], [place] [address]Gg. Holly Phillip WBC 6.3 103/ul Normal 4.0-11.0 [facility] Comment on above: Performed By: #### C BC ####[facility] [address] [place], [place] [address]Yk. Holly Fisher LIPID PROFILEon 03-05-2022 CHOL-HDL RATIO NORM SEE BELOW Normal [facility] Comment on above: Result Comment: 3.3 - 4.4 LOW RISK 4.4 - 7.1 AVERAGE RISK 7.1 - 11.0 MODERATE RISK >11.0 HIGH RISK Performed By: #### L IPID, CMP #### [facility] [address] [place] [address] [address] Holly Fisher Cholesterol [Mass/Vol] 263 mg/dL Critically high <=200 [facility] Comment on above: Performed By: #### L IPID, CMP #### [facility] [address] [place] [address] [address] Holly Fisher Cholesterol in HDL [Mass/Vol] 63 mg/dL Critically high 40-60 [facility] Comment on above: Performed By: #### L IPID, CMP #### [facility] [address] [place] [address] [address] Holly Fisher Cholesterol in LDL [Mass/Vol] 160.2 mg/dL Normal [facility] Comment on above: Performed By: #### L IPID, CMP #### [facility] [address] [place] [address] [address] Holly Fisher Cholesterol.total/ Cholesterol in HDL [Mass ratio] 4.2 {ratio} Normal [facility] Comment on above: Performed By: #### L IPID, CMP #### [facility] [address] [place] [address] [address] Holly Fisher HDL NORMAL > or = 60 mg/dl - LO W CARDIOVASCULAR RISK <40 mg/dl - HIGH CARDIOVASCULAR RISK Normal [facility] Comment on above: Performed By: #### L IPID, CMP #### [facility] [address] [place] [address] [address] Holly Fisher LDL CALC NORMAL SEE BELOW Normal [facility] Comment on above: Result Comment: <100 mg/dl OPTIMAL 100 - 129 mg/dl NEAR OR ABOVE OPTIMAL 130 - 159 mg/dl BORDERLINE HIGH 160 - 189 mg/dl HIGH >190 mg/dl VERY HIGH Performed By: #### L IPID, CMP #### [facility] [address] [place] [address] [address] Holly Fisher Triglyceride [Mass/Vol] 199 mg/dL Critically high <=150 [facility] Comment on above: Performed By: #### L IPID, CMP #### [facility] [address] [place] [address] [address] Holly Fisher VLDL CALC 39.8 mg/dL Normal [facility] Comment on above: Performed By: #### L IPID, CMP #### [facility] [address] [place] [address] [address] Holly Fisher MG MAMM SCREEN 3D SHERRIE CADon 03-05-2022 MG MAMM SCREEN 3D SHERRIE CAD Patient: LETTY COFFEY Exam Date: 03/05/2022 : 1945 Gender:F Ordering : DR EMELY THOMAS M.D. Admission #: [id number] Family : Order #: [id number] CLICK HERE TO VIEW EXAM RADIOLOGY REPORT [...] Treatments None Family Cancers None LOCATION: [facility] BREAST COMPOSITION: Scattered areas fibroglandular [...] Ortiz MD on 03/05/2022 at 09:55 Normal [facility] PROF 14(COMP METB)on 022 Albumin [Mass/Vol] 3.9 g/dL Normal 3.4-5.0 [facility] Comment on above: Performed By: #### L IPID, CMP #### [facility] [address] [place] [address] Dr. Holly Fisher Albumin/Globulin [Mass ratio] 1.1 {ratio} Normal [facility] Comment on above: Performed By: #### L IPID, CMP #### [facility] [address] [place] [address] Dr. Holly Fisher ALP [Catalytic activity/Vol] 54 U/L Normal 46-116 [facility] Comment on above: Performed By: #### L IPID, CMP #### [facility] [address] [place] [address] Dr. Holly Fisher ALT [Catalytic activity/Vol] 22 U/L Normal 14-59 [facility] Comment on above: Performed By: #### L IPID, CMP #### [facility] [address] [place] [address] Dr. Holly Fisher Anion gap [Moles/Vol] 12.5 mmol/L Normal [facility] Comment on above: Performed By: #### L IPID, CMP #### [facility] [address] [place] [address] Dr. Holly Fisher AST [Catalytic activity/Vol] 14 U/L Critically low 15-37 [facility] Comment on above: Performed By: #### L IPID, CMP #### [facility] [address] [place] [address] Dr. Holly Fisher Bilirubin [Mass/Vol] 0.4 mg/dL Normal 0.2-1.0 [facility] Comment on above: Performed By: #### L IPID, CMP #### [facility] [address] [place] [address] Dr. Holly Fisher Calcium [Mass/Vol] 8.6 mg/dL Normal 8.5-10.1 [facility] Comment on above: Performed By: #### L IPID, CMP #### [facility] [address] [place] [address] Dr. Holly Fisher Chloride [Moles/Vol] 106 mmol/L Normal 98-107 [facility] Comment on above: Performed By: #### L IPID, CMP #### [facility] [address] [place] [address] Dr. Holly Fisher CO2 [Moles/Vol] 26.8 mmol/L Normal 21.0-32.0 [facility] Comment on above: Performed By: #### L IPID, CMP #### [facility] [address] [place] [address] Dr. Holly Fisher Creatinine [Mass/Vol] 0.60 mg/dL Normal 0.55-1.02 [facility] Comment on above: Performed By: #### L IPID, CMP #### [facility] [address] [place] [address] Dr. Holly Fisher EGFR-AF PARAGUAYAN >60 Normal >=60 [facility] Comment on above: Performed By: #### L IPID, CMP #### [facility] [address] [place] [address] Dr. Holly Fisher EGFR-NON AF PARAGUAYAN >60 Normal >=60 [facility] Comment on above: Performed By: #### L IPID, CMP #### [facility] [address] [place] [address] Dr. Holly Fisher Globulin (S) [Mass/Vol] 3.4 g/dL Normal [facility] Comment on above: Performed By: #### L IPID, CMP #### [facility] [address] [place] [address] Dr. Holly Fisher Glucose [Mass/Vol] 98 mg/dL Normal 74-106 [facility] Comment on above: Performed By: #### L IPID, CMP #### [facility] [address] [place] [address] Dr. Holly Fisher Potassium [Moles/Vol] 4.3 mmol/L Normal 3.5-5.1 [facility] Comment on above: Performed By: #### L IPID, CMP #### [facility] [address] [place] [address] Dr. Holly Fisher Protein [Mass/Vol] 7.3 g/dL Normal 6.4-8.2 [facility] Comment on above: Performed By: #### L IPID, CMP #### [facility] [address] [place] [address] Dr. Holly Fisher Sodium [Moles/Vol] 141 mmol/L Normal 136-145 [facility] Comment on above: Performed By: #### L IPID, CMP #### [facility] [address] [place] [address] Dr. Holly Fisher Urea nitrogen [Mass/Vol] 14.0 mg/dL Normal 7.0-18.0 [facility] Comment on above: Performed By: #### L IPID, CMP #### [facility] [address] [place] [address] Dr. Holly Fisher Urea nitrogen/Creatinin e [Mass ratio] 23.3 mg/mg Normal [facility] Comment on above: Performed By: #### L IPID, CMP #### [facility] [address] [place] [address] Dr. 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[employer] Normal [facility] OPERATIVE REPORTon 7 [facility] LET[facility] CO[facility] : 49MED REC NO: [id number] ROOM:ACCOUNT NO: [id number] ADMISSION DATE: 04/27/17PHYSICIAN: EMRE STAPLETONDATE OF PROCEDURE: [...] used to engage the membrane in a ckgux-ihp-lout technique andthe membrane was elevated from the [...] theprocedure well without complications.EMRE STAPLETOND:04/27/2017 9:59:31 CD/[id number]_TJob#: [id number] Doc#: [id number] [facility] Vital Signs Date Time Vital Sign Value Performing Clinician Facility 06-30-2023 09:15-0400 Body height 158.75 cm Emely Tohmas Other [facility] Other 06-30-2023 09:15-0400 Body mass index (BMI) [Ratio] 30.95 kg/m2 Emely Thomas Other [facility] Other 06-30-2023 09:15-0400 Body temperature 96.5 [degF] Emely Thomas Other [facility] Other 06-30-2023 09:15-0400 Body weight 78.02 kg Emely Thomas Other [facility] Other 06-30-2023 09:15-0400 Diastolic blood pressure 76 mm[Hg] Emely Thomas Other [facility] Other 06-30-2023 09:15-0400 Systolic blood pressure 156 mm[Hg] Emely Thomas Other [facility] Other 04-13-2023 15:00-0400 Body height 158.75 cm Emely Thomas Other [facility] Other 04-13-2023 15:00-0400 Body mass index (BMI) [Ratio] 31.49 kg/m2 Emely Thomas Other [facility] Other 04-13-2023 15:00-0400 Body weight 79.38 kg Emely Thomas Other [facility] Other 04-13-2023 15:00-0400 Diastolic blood pressure 78 mm[Hg] Emely Thomas Other [facility] Other 04-13-2023 15:00-0400 Systolic blood pressure 135 mm[Hg] Emely Thomas Other [facility] Other 03-18-2023 08:40-0400 Body height 158.75 cm Ej Thomas Other [facility] Other 03-18-2023 08:40-0400 Body mass index (BMI) [Ratio] 31.67 kg/m2 Ej Thomas Other [facility] Other 03-18-2023 08:40-0400 Body weight 79.83 kg Ej Thomas Other [facility] Other 03-18-2023 08:40-0400 Diastolic blood pressure 84 mm[Hg] Ej Thomas Other [facility] Other 03-18-2023 08:40-0400 Systolic blood pressure 134 mm[Hg] Ej Thomas Other [facility] Other 01-21-2023 11:00-0400 Body height 158.75 cm Emely Thomas Other [facility] Other 01-21-2023 11:00-0400 Body mass index (BMI) [Ratio] 32.21 kg/m2 Emely Thomas Other [facility] Other 01-21-2023 11:00-0400 Body weight 81.19 kg Emely Thomas Other [facility] Other 01-21-2023 11:00-0400 Diastolic blood pressure 82 mm[Hg] Emely Thomas Other [facility] Other 01-21-2023 11:00-0400 SaO2% (BldA) [Mass fraction] 97 % Emely Thomas Other [facility] Other 01-21-2023 11:00-0400 Systolic blood pressure 142 mm[Hg] Emely Thomas Other [facility] Other Encounters Encounter Date Encounter Type Care Provider Facility Start: 01-15-2025 End: 01-15-2025 ambulatory Gianna Kelley MD Facility:[facility] Start: 12-06-2024 End: 12-06-2024 ambulatory DUSTY NASSAR Not Available Start: 10-02-2024 End: 10-02-2024 ambulatory Gianna Kelley MD Facility:[facility] Start: 09-26-2024 End: 09-26-2024 Bamboo flowsheet Dusty Nassar DO Work Phone: [facility] Start: 09-26-2024 End: 09-26-2024 Bamboo flowsheet Dusty Nassar DO Work Phone: [facility] Start: 09-26-2024 End: 09-26-2024 Follow-up encounter Dusty Nassar DO Work Phone: [facility] Comment on above: Follow-up; Retinal I njection; Macular Degeneration Start: 09-26-2024 End: 09-26-2024 ambulatory DUSTY NASSAR Not Available Start: 09-25-2024 End: 09-25-2024 ambulatory Andrius Vytautas Giedraitis Facility:[facility] Start: 09-18-2024 End: 09-18-2024 ambulatory Andrius Vytautas Giedraitis Facility:[facility] Start: 09-11-2024 End: 09-11-2024 ambulatory Andrius Vytautas Giedraitis Facility:[facility] Start: 08-21-2024 End: 08-21-2024 ambulatory Andrius Vytautas Giedraitis Facility:[facility] Start: 07-25-2024 End: 07-25-2024 Bamboo flowsheet Dusty Nassar DO Work Phone: [facility] Start: 07-25-2024 End: 07-25-2024 Bamboo flowsheet Dusty Nassar DO Work Phone: [facility] Start: 07-25-2024 End: 07-25-2024 Clinical Support Dusty Nassar DO Work Phone: [facility] Comment on above: Macular Degeneration ; Retinal Injection Start: 05-30-2024 End: 05-30-2024 Bamboo flowsheet Dusty Nassar DO Work Phone: [facility] Start: 05-30-2024 End: 05-30-2024 Bamboo flowsheet Dusty Nassar DO Work Phone: [facility] Start: 05-30-2024 End: 05-30-2024 ambulatory DUSTY D LARRYHLER Not Available Start: 05-10-2024 End: 05-10-2024 ambulatory KRISS VELEZ Not Available Start: 04-05-2024 End: 04-05-2024 ambulatory DUSTY D LARRYHLER Not Available Start: 02-22-2024 End: 02-22-2024 ambulatory DUSTY D ZAHLER Not Available Start: 01-07-2024 End: 01-07-2024 ambulatory DUSTY D LARRYHLER Not Available Start: 12-10-2023 End: 12-10-2023 ambulatory DUSTY D LARRYHLER Not Available Start: 06-30-2023 End: 06-30-2023 ambulatory Emely Thomas Other [facility] Other Start: 06-30-2023 Office outpatient vi sit 15 minutes Emely Thomas [facility] Start: 05-18-2023 End: 05-18-2023 ambulatory Emely Thomas Other [facility] Other Start: 05-18-2023 Telephone encounter Emely Thomas [facility] Start: 05-13-2023 End: 05-14-2023 ambulatory [facility] Start: 05-13-2023 End: 05-13-2023 ambulatory [facility] Start: 04-16-2023 End: 04-17-2023 ambulatory [facility] Start: 04-13-2023 End: 04-13-2023 ambulatory Emely Thomas Other [facility] Other Start: 04-13-2023 Office outpatient vi sit 15 minutes Emely Thomas [facility] Start: 04-05-2023 End: 04-05-2023 ambulatory Ej Thomas Other [facility] Other Start: 04-05-2023 Telephone encounter Ej Martha [facility] Start: 03-18-2023 End: 03-18-2023 ambulatory Ej Thomas Other [facility] Other Start: 03-18-2023 Office outpatient ne w 30 minutes Ej Thomas [facility] Start: 02-09-2023 End: 02-10-2023 ambulatory NARENDRANATH LAKSHMIPATHY . Facility:[facility] Start: 02-01-2023 ambulatory NARENDRANATH LAKSHMIPATHY . Facility:[facility] Start: 01-28-[address] EMELY THOMAS Facil ity:[facility] Start: 01-28-2023 End: 01-29-2023 ambulatory NARENDRANATH LAKSHMIPATHY . Facility:[facility] Start: 01-21-2023 End: 01-21-2023 ambulatory Emely Thomas Other [facility] Other Start: 01-21-2023 Office outpatient vi sit 15 minutes Emely Thomas [facility] Start: 01-12-2023 End: 01-12-2023 ambulatory NARENDRANATH LAKSHMIPATHY . Facility:[facility] Start: 12-31-2022 End: 01-01-[address] EMELY THOMAS Facility:[facility] Start: 12-28-2022 End: 12-28-[address] EMELY THOAMS Facility:[facility] Start: 12-24-2022 End: 12-25-[address] EMELY THOMAS Facility:[facility] Start: 10-07-2022 End: 10-08-2022 ambulatory SHAWNA RUIZ . Facility:[facility] Start: 09-03-2022 Encounter for preprocedural laboratory examination DR YULI LEES . [facility] Start: 09-01-2022 End: 09-01-[address] YULI LEES . Facility:[facility] Start: 08-28-2022 End: 08-29-[address] EMELY THOMAS Facility:[facility] Start: 08-28-2022 End: 08-29-2022 Encounter for preprocedural laboratory examination DR EMELY THOMAS Facility:[facility] Start: 08-11-2022 End: 08-11-[address] YULI LEES . Facility:[facility] Start: 08-08-2022 Encounter for preprocedural cardiovascular examination SHAWNA RUIZ . [facility] Start: 08-07-2022 End: 08-08-2022 ambulatory [...] Facility:[facility] Start: 04-27-2017 End: 04-27-2017 Ambulatory EMRE Llanes [facility] Procedures Date Procedure Procedure Detail Performing [...] 05/24/2025 10:00 AM EDT Office Visit [facility] [address] [place] [address] Kriss Velez, DO [address] [place] [address] [facility] Start: 09-26-2024 End: 09-26-2024 Clinical Support 09/26/2024 9:00 AM EST Clinical Support [facility] [address] [place] [address] Dusty Nassar, [address] [place] [address] Arrived [facility] Comment on above: Arrived Start: 07-25-2024 End: 07-25-2024 Clinical Support 07/25/2024 1:45 PM EDT Clinical Support [facility] [address] [place] [address] Dusty Nassar, [address] [place] [address] Arrived [facility] Comment on above: Arrived Start: 05-30-2024 End: 05-30-2024 Clinical Support 05/30/2024 9:45 AM EDT Clinical Support [facility] [address] [place] [address] Dusty Nassar, [address] [place] [address] Arrived [facility] Comment on above: Arrived Start: 05-28-2024 Influenza vaccination Influenza Vacc ine (#1) [facility] Start: 02-26-2023 ambulatory Ambulatory Facility:[facility] Intravitreal Injection, Pharmacologic Agent - OD - Right Eye Intravitreal Injection, Pharmacologic Agent - OD - Right Eye Ophthalmology Routine 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 eye with active choroidal neovascularization (HCC) ([facility]/HCC) Ordered: 07/25/2024 [facility] Work Phone: Comment on above: Ordered: 07/25/2024 Intravitreal Injection, Pharmacologic Agent - OD - Right Eye Intravitreal Injection, Pharmacologic Agent - OD - Right Eye Ophthalmology Routine 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 eye with active choroidal neovascularization (HCC) ([facility]/HCC) Ordered: 05/30/2024 [facility] Work Phone: Comment on above: Ordered: 05/30/2024 Immunizations Immunization Date Immunization Notes Care Provider Asim garcia 08-11-2024 influenza virus vacc ine, unspecified formulation Dusty Nassar DO Work Phone: [facility] 07-26-2023 influenza virus vacc ine, unspecified formulation Dusty Nassar DO Work Phone: [facility] Payers Date Payer Category Payer [facility] [employer] [id number] 2018 Unknown [id number]. [id number] 2017 Medicare [id number] 1.13.693.2. [id number] 2014 Unknown [id number] 1959 [facility] [id number] 2.16.840.1.570410.19 1959 Medicare [id number] 2.16.840.1.460050.19 1959 Unknown [id number] 1947 Unknown [id number] 2.16.840.1.333341.3.579.2. 593 1947 Unknown [id number] 2.16.840.1.085474.3.579.2. 593 1947 Unknown [id number] 2.16.840.1.167532.3.579.2. 593 1947 Unknown [id number] 2.16.840.1.289873.3.579.2. 593 1947 Unknown [id number] 2.16.840.1.301845.3.579.2. 593 1947 Unknown [id number] 2.16.840.1.383197.3.579.2. 593 1947 Unknown [id number] 2.16.840.1.674655.3.579.2. 593 1947 Unknown [id number] 2.16.840.1.811874.3.579.2. 593 1947 Unknown [id number] 2.16.840.1.407699.3.579.2. 593 1947 Unknown [id number] 2.16.840.1.660197.3.579.2. 593 1947 Unknown [id number] 2.16.840.1.738858.3.579.2. 593 1947 Unknown [id number] 2.16.840.1.217965.3.579.2. 593 1947 Unknown [id number] 2.16.840.1.169159.3.579.2. 593 1947 Unknown [id number] 2.16.840.1.083921.3.579.2. 593 1947 Unknown [id number] 2.16.840.1.807106.3.579.2. 593 1947 Unknown [id number] 2.16.840.1.093634.3.579.2. 593 1947 Unknown [id number] 2.16.840.1.879301.3.579.2. 593 1947 Unknown [id number] 2.16.840.1.008358.3.579.2. 593 1947 Unknown [id number] 2.16.840.1.300703.3.579.2. 593 1947 Unknown [id number] 2.16.840.1.668443.3.579.2. 593 1947 Unknown [id number] 2.16.840.1.185459.3.579.2. 593 1947 Unknown [id number] 2.16.840.1.992323.3.579.2. 593 1947 Unknown [id number] 2.16.840.1.244721.3.579.2. 593 1947 Unknown [id number] 2.16.840.1.920432.3.579.2. 593 1947 Unknown [id number] 2.16.840.1.512264.3.579.2. 593 1947 Unknown [id number] 2.16.840.1.587187.3.579.2. 1259 1947 Unknown [id number] 2.16.840.1.952599.3.579.2. 1259 1947 Unknown [id number] 2.16.840.1.001897.3.579.2. 1259 1947 Unknown [id number] 2.16.840.1.233402.3.579.2. 1259 1947 Unknown [id number] 2.16.840.1.112163.3.579.2. 1259 1947 Unknown [id number] 2.16.840.1.697488.3.579.2. 1259 1947 Unknown [id number] 2.16.840.1.298081.3.579.2. 1259 1947 Unknown [id number] 2.16.840.1.430252.3.579.2. 1259 1947 Unknown [id number] 2.16.840.1.675053.3.579.2. 1259 1947 Unknown [id number] 2.16.840.1.812358.3.579.2. 196 1947 Unknown [id number] 2.16.840.1.277030.3.579.2. 196 1947 Unknown [id number] 2.16.840.1.392333.3.579.2. 196 1947 Unknown [id number] 2.16.840.1.235075.3.579.2. 196 1947 Unknown [id number] 2.16.840.1.492527.3.579.2. 196 1947 Unknown [id number] 2.16.840.1.205848.3.579.2. 196 Social History Date Type Detail Facility Unknown if ever smoked [facility] Other Start: 05-30-2024 End: 09-26-2024 Sex Assigned At [employer] Other Start: 10-11-2023 Tobacco smoking status KYIS Never smoked tobacco [facility] Start: 10-11-2023 Tobacco use and exposure Smokeless tobacco non-user [facility] Start: 05-30-2024 End: 09-26-2024 History of Social function [facility] Start: 1945 Sex assigned at Not on file [facility] Clinical Notes 03-05-2022 to 09-26-2024 Dusty Nassar, DO - 09/26/2024 9:00 AM Uzma Nassar, DO - 07/25/2024 1:45 PM EDTDusty [...] MG/0.05ML Route: Intravitreal, Site: Left Eye [facility]: 48632-988-03, Lot: [id number], Expiration date: 12/26/2025, Waste: 0 mL Post-op [...] increased pain, redness, decreased vision or concerns. [facility] 09-26-2024 Note Right Eye Quality was good. Scan locations included subfoveal. Progression has been stable. Findings include abnormal foveal contour, epiretinal membrane, intraretinal fluid, pigment epithelial detachment. Left Eye Quality was good. Scan locations included subfoveal. Progression has been stable. Findings include normal observations. Notes Good scan with normal appearance left eye (OS) [facility] 09-26-2024 History of Presen t illness Narrative [...] MG/0.05ML Route: Intravitreal, Site: Left Eye [facility]: 95566-362-62, Lot: [id number], Expiration date: 12/26/2025, Waste: 0 mL Post-op [...] vision or concerns. documented in this encounter [facility] 07-25-2024 Note Time Out 07/25/2024. 2:58 PM. Confirmed correct patient, procedure, site, and patient consented. Anesthesia Topical anesthesia was used. Anesthetic medications included Lidocaine 2%, Proparacaine 0.5%. Procedure Preparation included 5% betadine to ocular surface, eyelid speculum. Injection: 2 mg aflibercept 2 MG/0.05ML Route: Intravitreal, Site: Left Eye [facility]: 80650-732-62, Lot: [id number], Expiration date: 08/27/2025, Waste: 0 mL Post-op [...] increased pain, redness, decreased vision or concerns. [facility] 07-25-2024 Note Right Eye Quality was good. Scan locations included subfoveal. Progression has been stable. Findings include abnormal foveal contour, pigment epithelial detachment. Left Eye Quality was good. Scan locations included subfoveal. Progression has been stable. Findings include abnormal foveal contour. [facility] 07-25-2024 History of Presen t illness Narrative [...] MG/0.05ML Route: Intravitreal, Site: Left Eye [facility]: 40814-860-85, Lot: [id number], Expiration date: 08/27/2025, Waste: 0 mL Post-op [...] vision or concerns. documented in this encounter [facility] 05-30-2024 Note Time Out 05/30/2024. 10:38 AM. Confirmed correct patient, procedure, site, and patient consented. Anesthesia Topical anesthesia was used. Anesthetic medications included Lidocaine 2%, Proparacaine 0.5%. Procedure Preparation included 5% betadine to ocular surface, eyelid speculum. Injection: 1.25 mg bevacizumab 100 MG/4ML Route: Intravitreal, Site: Left Eye [facility]: 84900-067-13, Lot: [id number], Expiration date: 08/14/2024, Waste: 0 mL Post-op [...] increased pain, redness, decreased vision or concerns. [facility] 05-30-2024 Note Right Eye Quality was good. Scan locations included subfoveal. Progression has improved. Findings include abnormal foveal contour, intraretinal fluid, pigment epithelial detachment. Left Eye Quality was good. Scan locations included subfoveal. Progression has been stable. Findings include abnormal foveal contour. [facility] 05-30-2024 History of Presen t illness Narrative Images from the original note were not included. Assessment/Plan Diagnoses and all orders for this visit: 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 eye with active choroidal neovascularization (HCC) ([facility]/HCC) - OCT, Retina - OU - Both [...] 100 MG/4ML Route: Intravitreal, Site: Left Eye [facility]: 74602-929-40, Lot: [id number], Expiration date: 08/14/2024, Waste: 0 mL Post-op [...] MG/ML solution prefilled syringe as directed Subcutaneous Pwhsbcwpfsn-Zexhimbndpw-ENC (Srabkh-Pecma-VAW-Double Str) 500-400-167 MG tablet every 12 (twelve) [...] time each day at the same time Sheridan-3 Fatty Acids (Fish Oil) 1200 MG capsule [...] Normal Normal Refraction Wearing Rx Sphere Cylinder [place] Add Right +2.50 -2.00 077 +3.25 Left [...] laser capsulotomy, they are to notify their aluminum molder promptly if they have a significant change in symptoms, such as flashes of light (photopsia), an increase in floaters, loss of visual field or decrease in visual acuity. documented in this encounter [facility] 06-30-2023 Evaluation note Encounter Date Diagnosis Assessment Notes Jun, Acute non-recurrent maxillary sinusitis (ICD-10 - J01.00) Finish antibiotic, stay hydrated. Ok for NSAIDs for head pressure. Call if no improvement. [facility] Other 08-17-2023 NoteSUBJECTIVE: Chief complaint: Back and right leg pain. History of present illness: Consultation referred by pain management, Dr. Layton of [facility]. Patient reports chronic low back [...] and assess x-rays of back. [facility] Mckeon [facility]3Un[facility] Evaluation note* Encounter Date Diagnosis [...] is busy with other appts right now. [facility] Other 06-22-2023 Evaluation note* Encounter Date Diagnosis [...] long as possible before considering surgical intervention. [facility] Other 05-04-2023 NoteCONSULTATION CONSULTATION DATE: 01/28/2023 TO: [...] our patients to inform us about any drik-dea-cwxpkbw medications or herbal remedies/nutritional supplements/alternative remedies. 2. [...] treatment options with their primary care provider.[facility]nfwkll[facility]20[facility] Evaluation note * Encounter Date Diagnosis Assessment Notes Treatment Notes Treatment Clinical Notes Dec, Essential (primary) hypertension (ICD-10 - I10) new problem. rx handwritten. f/u 6 weeks. Dec, Other chronic pain (ICD-10 - G89.29) Dec, Pain in left shoulder (ICD-10 - M25.512) PT order given to pt. [facility] Other 04-06-2023 NoteCONSULTATION CONSULTATION DATE: 12/31/2022 TO: [...] our patients to inform us about any mvxj-azl-pwkmbel medications or herbal remedies/nutritional supplements/alternative remedies. 2. [...] treatment options with their primary care provider.[facility] HospitalHjxgvmiv45-32-8616 Note CONSULTATION PROCEDURE DATE: 10/07/2022 PREOPERATIVE DIAGNOSIS: [...] fan-like pattern. Patient tolerated the procedure well.[facility] HospitalVehkaljh00-70-4159 NoteCONSULTATION CONSULTATION DATE: 10/07/2022 HISTORY OF PRESENT [...] sitting does decrease her pain. Medications include vosp-ycx-lfdoccj Tylenol and the use of Salonpas patches. [...] otherwise indicated. Patient agrees with this plan.[facility] HospitalOeuryzmu11-91-4598 NoteCONSULTATION CONSULTATION DATE: 07/30/2022 This is a [...] be followed up at the office thereafter.[facility] HospitalEjjtztrt20-39-1039 NoteCONSULTATION CONSULTATION DATE: 06/25/2022 HISTORY OF PRESENT [...] patient is in agreement with this plan.[facility] HospitalRmjvqjaw34-27-7164 NoteCONSULTATION CONSULTATION DATE: 05/19/2022 CHIEF COMPLAINT: Right [...] like to proceed. CC: Emely Thomas M.D.[facility] HospitalIyxfussm82-11-1107 NoteCONSULTATION PROCEDURE DATE: 04/28/2022 PREOPERATIVE DIAGNOSIS: Right [...] Will be followed up in the office.[facility] HospitalGvszencb37-60-2599 NoteCONSULTATION CONSULTATION DATE: 04/28/2022 CHIEF COMPLAINT: Right [...] like to proceed. CC: Emely Thomas M.D.[facility] HospitalRmrwuneo61-94-8882 NotePROCEDURE: XR HIP RT 2 3V W [...] by: YOUSUF ORTIZ Date: 2022-03-05 10:09[facility] noteNo InformationNosaint john's [facility] [employer] Other evaluation note* Diagnosis 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 eye with active choroidal neovascularization (CMS/HCC)- Primary documented in this encounter [facility] Healthcare[facility]* Diagnosis 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 eye with active choroidal neovascularization (HCC) (CMS/HCC)- Primary Right posterior capsular opacification Unspecified after-cataract documented in this encounter [facility]* Diagnosis 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 eye with active choroidal neovascularization (CMS/HCC)- Primary documented in this encounter [facility] HealthcareHistory general Narrative - Reported* Type Description [...] History COLONOSCOPY Hospitalization History SEE SURGICAL HX [facility] [employer] Other History general Narrative - Reported* Type [...] growth surgery Hospitalization History SEE SURGICAL HX [facility] Other Summary Purpose Family History No Family [...] content) DATE CREATED AUTHOR 03/23/2018 [facility] DATE CREATED AUTHOR AUTHOR'S ORGANIZ ATION 02/10/2023 [facility] DATE CREATED AUTHOR AUTHOR'S ORGANIZ ATION 05/19/2023 [facility] DATE CREATED AUTHOR AUTHOR'S ORGANIZ ATION 12/08/2024 [facility] EPIC DATE CREATED AUTHOR AUTHOR'S ORGANIZ ATION 01/23/2025 [facility] REASON FOR VISIT (unrecogniz ed section and content) Reason Comments Macular Degeneration Retinal Injection Reason Comments Follow-up Reason Comments Follow-up Retinal Injection Macular Degeneration Care Teams (unrecognized sec tion and content) Software Educ[employer] Relationship Specialty Start Date End Date Wiley Price MD [address] [place] [id number] PCP - General Family Medicine 12/10/23 Kimber Price MD [address] [place] [address] Referring Physician Family Medicine 10/15/23 Software Educ[employer] Relationship Specialty Start Date End Date Wiley Price MD [address] [place] [id number] PCP - General Family Medicine 12/10/23 Kimber Price MD [address] [place] [address] Referring Physician Family Medicine 10/15/23 Software Educator Relationship Specialty Start Date End Date Wiley Price MD [address] [place] [address] PCP - General Family Medicine 12/10/23 Kimber Price MD [address] [place] [address] Referring Physician Family Medicine 10/15/23 FOR RECORDS [...] BE BASED ON THE PRIMARY CLINICAL RECORDS. [employer] provides no warranty or guarantee of the accuracy or completeness of information in this document.
--- NOTE | 2025-02-14 10:11 | PM.CN ---
Consult Note: HPI Data of Consult Patient: known to practice within the last 3 years Requesting Physician: Bessy Johnson NP Primary Care Provider: KIEL ALMODOVAR Consult Narrative Reason for consult: f/u Narrative: 79 year old female presents for evaluation of chronic left shoulder pain, low back pain, and SIJ pain. Pain today 2/10 sharp burning, increasing to 6/10 with standing, walking, twisting, pushing, pulling. currently utilizing tylenol, baclofen, tramadol, zonegran, and advil with benefit without side effects. has failed to benefit from > 6 weeks of PT and provider guided HEP, heat, ice, tylenol, NSAIDs, and oral steroids. recently underwent left suprascapular RFA with >80% improvement ongoing, and right L4-5 L5-S1 TFESI with >50% improvement ongoing in [place]. continues to have moderate to severe low back and SIJ pain. cc:: CC: Bessy Johnson NP Review of Systems ROS Status of ROS 10 or more systems reviewed and unremarkable except as noted in history and below Musculoskeletal Reports: back pain, extremity pain and joint pain PFSH PFSH Medical History Osteoarthritis ?M19.90 - Unspecified osteoarthritis, unspecified site (ICD-10) Low back pain ?M54.50 - Low back pain, unspecified (ICD-10) Hiatal hernia ?K44.9 - Diaphragmatic hernia without obstruction or gangrene (ICD-10) Obesity ?E66.9 - Obesity, unspecified (ICD-10) Heart murmur ?R01.1 - Cardiac murmur, unspecified (ICD-10) Surgical History History of ear surgery ?Z98.890 - Other specified postprocedural states (ICD-10) History of phacoemulsification of cataract with intraocular lens implantation ?Z98.49 - Cataract extraction status, unspecified eye (ICD-10) ?Z96.1 - Presence of intraocular lens (ICD-10) Hx of appendectomy ?Z90.49 - Acquired absence of other specified parts of digestive tract (ICD-10) H/O: hysterectomy ?Z90.710 - Acquired absence of both cervix and uterus (ICD-10) History of tonsillectomy ?Z90.89 - Acquired absence of other organs (ICD-10) Meds Home Medications and Allergies Home Medications ?Medication ?Instructions ?Recorded ?Confirmed ?Type aspirin 81 mg tablet,delayed 81 mg PO DAILY 02/26/23 01/29/25 History release (Adult Low Dose Aspirin) denosumab 60 mg/mL subcutaneous 60 mg subcut .Q6 MONTHS 02/26/23 01/29/25 History syringe (Prolia) niacin 500 mg tablet 500 mg PO DAILY 02/26/23 01/29/25 History losartan 25 mg tablet 25 mg PO DAILY 03/01/23 01/29/25 History antiarthritic combination no.2 900 2 mg PO DAILY 07/15/23 01/29/25 History mg tablet (glucosamine-chondroitin) calcium 600 mg (as 2 cap PO DAILY 07/15/23 01/29/25 History carbonate)-vitamin D3 5 mcg (200 unit) capsule (Calcium 600 + D(3)) magnesium glycinate 100 mg (as 100 mg PO BID 07/15/23 01/29/25 History glycinate) tablet (Mag Glycinate) multivitamin (Daily Multi-Vitamin 1 tab PO DAILY 07/15/23 01/29/25 History tablet) omega 5-zir-uow-fish oil 1,200 mg 2 cap PO DAILY 07/15/23 01/29/25 History (144 mg-216 mg) capsule (Fish Oil) vit C 250 mg-vit E 90 mg-zinc 40 1 tab PO BID 07/15/23 01/29/25 History mg-copper 1 lp-wlgtqh-ivwaqh capsule (PreserVision AREDS-2) vitamin K2 100 mcg capsule 100 mcg PO DAILY 07/15/23 01/29/25 History cholecalciferol (vitamin D3) 50 2,000 unit PO BID 01/11/24 01/29/25 History mcg (2,000 unit) capsule (Vitamin D3) baclofen 10 mg tablet 10 mg PO BID PRN muscle spasm #180 09/13/24 01/29/25 Rx tabs tramadol 50 mg tablet See Rx Instructions .Route 12/19/24 01/29/25 Rx .COMPLEX PRN pain #75 tabs zonisamide 50 mg capsule 150 mg (3 x 50 mg) PO DAILY #90 01/04/25 01/29/25 Rx caps Allergies Allergy/AdvReac Type Severity Reaction Status Date / Time No Known Drug Allergies Allergy Verified 01/29/25 09:56 Exam Constitutional Documenting provider has reviewed patient's vital signs: yes Common normals: no apparent distress, oriented x3, healthy appearing, alert and well nourished General appearance: cooperative HENNH Common normals: normocephalic, hearing grossly normal bilaterally and moist oral mucous membranes Head and scalp: normocephalic Eye Common normals: PERRL Pupil: PERRL Neck & C-Spine Common normals: full ROM General: normal visual inspection Chest Common normals: inspection of chest normal Respiratory Common normals: normal respiratory effort, no retractions and no use of accessory muscles Back & Pelvis Lumbar spine/lower back: ROM limited, pain with ROM and straight leg raise negative bilaterally Sacroiliac joints: SI joint(s) abnormal Other: right positive angel(patricks), gaenslens, thigh thrust, compression test positive facet loading sensation intact BLE strength 5/5 in BLE Extremity Common normals: normal to inspection and full ROM Left upper extremity: shoulder joint (mild pain with empty can, posterior liftoff. non tender to touch) Neuro Common normals: oriented x3 Sensorium/orientation: alert Motor exam: no movement abnormalities noted Psych Common normals: mental status grossly normal, thought process normal, cooperative, affect normal, speech normal and activity/motor behavior normal Speech: normal speech Thought process: normal thought process Assessment and Plan Assessment and Plan (1) Lumbar stenosis with neurogenic claudication: Assessment and Plan: 01/29/25 right L4-5 L5-S1 TFESI >70% improvement ongoing (2) Sacroiliitis: Assessment and Plan: persistent right SIJ pain (3) Bilateral primary osteoarthritis of hip: (4) Osteoarthritis of left shoulder: (5) Chronic prescription opiate use: Assessment and Plan: risks vs benefits reviewed, has failed to benefit from tylenol motrin aleve and diclofenac. finds benefit to tramadol 50mg BID PRN without side effects (6) Chronic left shoulder pain: Assessment and Plan: significant improvement ongoing post left suprascapular RFA 01/15/25 Plan MELANIA 30% with moderate to severe pain with ADLs, standing, walking, lifting, sleeping repeat right SIJ injection, prior injection provided >50% improvement greater than 3 months continue current medications f/u 2 weeks after sij injection
== END 2025-02-14 09:39 | disposition home or self-care (01) ==
LOC: PM 09:38
PROVIDERS: PCP Nurse Practitioner Family; Visit Provider Nurse Practitioner
DX: M48.062 Spinal stenosis, lumbar region with neurogenic claudication (principal); M46.1 Sacroiliitis, not elsewhere classified; M16.0 Bilateral primary osteoarthritis of hip; M19.012 Primary osteoarthritis, left shoulder; Z79.891 Long term (current) use of opiate analgesic; M25.512 Pain in left shoulder
CPT/HCPCS: G0463

== ENCOUNTER 2025-02-26 10:23 | Day surgery (SDC) | payer MEDICARE, BC, SELFPAY ==
--- OUTSIDE RECORDS SUMMARY | 2025-02-26 10:28 | XMS_ITS | Encounter Summary ---
Author Organization [facility] Address [address] [place] [address] Care Team Providers Care Test Operator Name Role Phone Kimber Price MD Unavailable [phone] Wiley Price MD Primary Care Provider [phone] Encounter Details Date Type Department Care Team (Late st Contact Info) Description 08/14/2024 Orders Only [facility] [address] [place] [address] Kriss Velez, DO [address] [place] [address] Social History Tobacco Use Types Packs/Day Years Used Date Smoking Tobacco: Never Smokeless Tobacco: Never Comments Unknown Sex and Gender Information Value Date Recorded Sex Assigned at Not on file Legal Sex Female 8:35 PM EDT Gender Identity Not on file Sexual Orientation Not on file documented as of this encounter Plan of Treatment Upcoming Encounters Date Type Department Care Team (Late st Contact Info) Description 02/28/2025 9:15 AM EDT Clinical Support [facility] [address] [place] [address] Bakari Nassar, DO [address] [place] [address] 05/24/2025 10:00 AM EDT Office Visit [facility] [address] [place] [address] Kriss Velez, DO [address] [place] [address] documented as of this encounter Procedures Procedure Name Priority Date/Time Associated Diagnosis Comments MAMMOGRAM, BILATERAL, SCREEN:* Routine 08/14/2024 9:56 AM EST documented in this encounter Results * MAMMOGRAM, BILATERAL, SCREEN:* (08/14/2024 9:56 AM EST) Anatomical Region Laterality Modality Radiographic Danae ging us Kriss Velez DO IMG XR PROCEDURES Final Res ult documented in this encounter Visit Diagnoses Not on filedocumented in this encounter Care Teams Test Operator Relationship Specialty Start Date End Date Wiley Price MD [address] [place] [address] [id number] PCP - General Family Medicine 12/10/23 Kimber Price MD [address] [place] [address] Referring Physician Family Medicine 10/15/23 documented as of this encounter
--- OUTSIDE RECORDS SUMMARY | 2025-02-26 10:28 | XMS_ITS | Clinical Summary ---
Author Organization [facility] Address [address] [place] [address] Care Team Providers Care Supply Chain Intern Name Role Phone Matty Sanz DO Primary Care Provider [phone] Allergies No known active allergies Medications MELOXICAM PO Take by mouth as needed Active raloxifene (EVISTA) 60 MG tablet Take 60 mg by mouth daily Active Multiple Vitamins-Minera ls (THERAPEUTIC MULTIVITAMIN-AR NERALS) tablet Take 1 tablet by mouth daily Active CALCIUM PO Take 600 mg by mouth 2 times daily Active GLUCOSAMINE-CHO NDROITIN PO Take by mouth 2 times daily Active Cholecalciferol (VITAMIN D3) 5000 units TABS Take 7,000 Units by mouth daily Active [place]-3 Fatty Acids (FISH OIL) 1000 MG CAPS Take 3,000 mg by mouth 3 times daily Active niacin 500 MG extended release capsule Take 500 mg by mouth nightly Active Multiple Vitamins-Minera ls (PRESERVISION AREDS 2 PO) Take by mouth 2 times daily Active aspirin 81 MG tablet Take 81 mg by mouth daily Active Active Problems Problem Noted Date Diagnosed Date Macular pucker, right eye 04/27/2017 Family History Medical History Relation Name Comments Cancer Father Heart Disease Mother Relation Name Status Comments Father Mother (Age 95) Social History Tobacco Use Types Packs/Day Years Used Date Smoking Tobacco: Never Alcohol Use Standard Drinks/Week Comments No 0 (1 standard drink = 0.6 oz pur e alcohol) Comments No Sex and Gender Information Value Date Recorded Sex Assigned at Not on file Legal Sex Female 9:19 AM EDT Gender Identity Not on file Sexual Orientation Not on file Last Filed Vital Signs Vital Sign Reading Time Taken Comments Blood Pressure 135/74 04/27/2017 10:07 AM EDT Pulse 66 04/27/2017 10:07 AM EDT Temperature 36.3 C (97.3 F) 04/27/2017 10:07 AM EDT Respiratory Rate 12 04/27/2017 10:07 AM EDT Oxygen Saturation 97% 04/27/2017 10:07 AM EDT Inhaled Oxygen Concentration - - Weight 82 kg (180 lb 12.4 oz) 04/27/2017 8:03 AM EDT Height 157.5 cm (5' 2 ) 04/27/2017 8:03 AM EDT Body Mass Index 33.06 04/27/2017 8:03 AM EDT Plan of Treatment Not on file Insurance [employer] Care Teams Supply Chain Intern Relationship Specialty Start Date End Date Matty Sanz DO PCP - General Internal Medicine 04/15/17
--- OUTSIDE RECORDS SUMMARY | 2025-02-26 10:28 | XMS_ITS | Clinical Summary ---
Author Organization [facility] Address [address] [place] [address] Care Team Providers Care Lawn Sprinkler Servicer Name Role Phone Kimber Price MD Unavailable [phone] Wiley Price MD Primary Care Provider [phone] Allergies No known active allergies Medications aspirin 81 MG EC tablet 1 (one) time each day at the same time Active baclofen (Lioresal) 10 MG tablet every 12 (twelve) hours 3 Active calcium carbonate (Super Calcium) 1500 (600 Ca) MG tablet 1 tablet with meals Orally Once Active cholecalciferol (Vitamin D3) 25 MCG (1000 UT) tablet 1 (one) time each day at the same time Active denosumab (Prolia) 60 MG/ML solution prefilled syringe as directed Subcutaneous Active Glucosamine-Cho ndroitin-MSM (Gjzszi-Czhho-A SM-Double Str) 500-400-167 MG tablet every 12 (twelve) hours Active losartan (Cozaar) 25 MG tablet Oral for 90 Days 3 Active Magnesium Glycinate 100 MG capsule 2 capsules 1 (one) time each day at the same time Active Menaquinone-7 (Vitamin K2) 100 MCG capsule as directed Orally Active Multiple Vitamins-Minera ls (PreserVision AREDS 2) capsule 1 (one) time each day at the same time Active Multiple Vitamins-Minera ls (Womens 50+ Multi Vitamin) tablet as directed Orally Active niacin 500 MG tablet 1 (one) time each day at the same time Active [place]-3 Fatty Acids (Fish Oil) 1200 MG capsule delayed-release 1 capsule every 12 (twelve) hours Active zonisamide (Zonegran) 50 MG capsule TAKE 3 CAPSULES BY MOUTH EVERY DAY AT BEDTIME Active traMADol (Ultram) 50 MG tablet TAKE 1 TABLET BY MOUTH TWICE A DAY NEEDED FOR PAIN MUST LAST 30 DAYS 4 Active Active Problems Problem Noted Date Diagnosed Date Exudative age-related macula r degeneration of left eye with active choroidal neovascularization 10/15/2023 Right posterior capsular opacification 4 Dry eyes 10/11/2023 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 10/11/2023 Resolved Problems Problem Noted Date Diagnosed Date Resolved Date Advanced atrophic nonexudati ve age-related macular degeneration of both eyes without subfoveal involvement 10/11/2023 02/22/2024 Encounters Date Type Department Care Team Description 12/06/2024 9:15 AM EDT Clinical Support [facility] [address] [place] [phone] Bakari Nassar, Follow-up 12/06/2024 Bamboo flowsheet [facility] [address] [place] [phone] Bakari Nassar, 12/06/2024 Travel from Last 3 Months Family History Medical History Relation Name Comments Cancer Father Cataracts Mother Hypertension Mother Diabetes Sister Thyroid disease Sister Relation Name Status Comments Father Mother Sister Social History Tobacco Use Types Packs/Day Years Used Date Smoking Tobacco: Never Smokeless Tobacco: Never Tobacco Cessation:Counseling Given: Not Answered Comments Unknown Sex and Gender Information Value Date Recorded Sex Assigned at Not on file Legal Sex Female 8:35 PM EDT Gender Identity Not on file Sexual Orientation Not on file Last Filed Vital Signs Vital Sign Reading Time Taken Comments Blood Pressure 136/82 05/10/2024 9:24 AM EDT Pulse - - Temperature - - Respiratory Rate - - Oxygen Saturation - - Inhaled Oxygen Concentration - - Weight 75.3 kg (166 lb) 05/10/2024 9:24 AM EDT Height - - Body Mass Index - - Plan of Treatment Upcoming Encounters Date Type Department Care Team (Late st Contact Info) Description 02/28/2025 9:15 AM EDT Clinical Support [facility] [address] [place] [phone] Bakari Nassar, DO [address] [place] [address] 05/24/2025 10:00 AM EDT Office Visit [facility] [address] [place] [address] Kriss Velez, DO [address] [place] [address] Health Maintenance Due Date Last Done Comments Pneumococcal Vaccine: 65+ Years Completed 8, 01/19/2017 Influenza Vaccine Completed 08/11/2024, , 2022, Additional history exists Procedures Procedure Name Priority Date/Time Associated Diagnosis Comments INTRAVITREAL INJECTION, PHARMACOLOGIC AGENT - OS - LEFT EYE Routine 12/06/2024 10:22 AM EDT 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 eye with active choroidal neovascularization (CMS/HCC) OCT, RETINA - OU - BOTH EYES Routine 12/06/2024 10:19 AM EDT 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 eye with active choroidal neovascularization (CMS/HCC) from Last 3 Months Results * Intravitreal Injection, Pharmacologic Agent - OS - Left Eye (12/06/2024 10:22 AM EDT) Anatomical Region Laterality Modality Head Other Narrative 12/06/2024 10:22 AM EDT Time Out 12/06/2024. 10:22 AM. Confirmed correct patient, procedure, site, and patient consented. Anesthesia Topical anesthesia was used. Anesthetic medications included Lidocaine 2%, Proparacaine 0.5%. Procedure Preparation included 5% betadine to ocular surface, eyelid speculum. Injection: 2 mg aflibercept 2 MG/0.05ML Route: Intravitreal, Site: Left Eye [facility]: 50599-455-79, Lot: [id number], Expiration date: 01/25/2026, Waste: 0 mL Post-op Post injection exam [...] increased pain, redness, decreased vision or concerns. Bakari Nassar DO OPHTH CLINIC PROCEDURES Fin al Result * OCT, Retina - OU - Both Eyes (12/06/2024 10:19 AM EDT) Anatomical Region Laterality Modality Head Optical Coherenc e Tomography Narrative 12/06/2024 10:19 AM EDT Right Eye Quality was good. Scan locations included subfoveal. Progression has been stable. Findings include abnormal foveal contour, pigment epithelial detachment. Left Eye Quality was good. Scan locations included subfoveal. Progression has been stable. Findings include normal observations. Notes Good scan with normal appearance left eye (OS) Bakari Nassar DO OPHTH TOMOGRAPHY Edited Res ult - Final from Last 3 Months Insurance MEDICARE BCBS Care Teams Lawn Sprinkler Servicer Relationship Specialty Start Date End Date Wiley Price MD [address] [place] [id number] PCP - General Family Medicine 12/10/23 Kimber Price MD [facility] [place], [place] [id number] Referring Physician Family Medicine 10/15/23
[2025-02-26 11:07] VITALS: BP 133/76; PULSE 70; TEMP 36.2; O2SAT 99
[2025-02-26 11:39] VITALS: BP 161/72; BP 174/74; PULSE 62; PULSE 66; O2SAT 95
[2025-02-26] MEDS: LIDOCAINE HCL 2% 400 MG/20 ML MDV INJ (11:40)
[2025-02-26] MEDS: METHYLPREDNISOLONE ACETATE 40 MG/ML VIAL INJ (11:40)
[2025-02-26] MEDS: IOHEXOL 240 MG/ML - 10 ML VIAL 24 MG INJ (11:40)
[2025-02-26] MEDS: BUPIVACAINE HCL 0.25% PF 25 MG/10 ML VIAL 2 ML INJ (11:40)
--- NOTE | 2025-02-26 11:41 | W.PM.PROCNOT ---
Date of procedure: 02/26/25 Pre-op diagnosis: Pain due to right sacroiliitis Post-op diagnosis: same as pre-op Procedure: Procedure: Right sacroiliac joint injection Medications: Bupivacaine 0.25% 3cc, depomedrol 40mg After informed consent was obtained, the patient was brought to the medical procedure unit and placed in the prone position, when a timeout was completed verifying correct patient, procedure, site, positioning, implant, and/or special equipment.? The skin overlying the area was prepped and draped in standard sterile fashion using alcohol.? A 25-gauge needle was inserted towards the right sacroiliac joint under direct fluoroscopic imaging.? Needle tip was advanced until the joint was encountered.? We instilled a total of 2 mL of solution.? Postoperatively needles were removed.? The patient tolerated the procedure well without complication.? The patient reported reduction in pain symptoms postoperatively. Anesthesia: Local Surgeon: Gianna Kelley Pathology: none sent Condition: stable Disposition: no change
== END 2025-02-26 11:45 | disposition home or self-care (01) ==
LOC: SURGOUT 10:24
PROVIDERS: PCP Nurse Practitioner Family; Visit Provider Anesthesiology
DX: M53.3 Sacrococcygeal disorders, not elsewhere classified (principal); M46.1 Sacroiliitis, not elsewhere classified
CPT/HCPCS: 27096; J0665; J1010; Q9966

== ENCOUNTER 2025-03-07 09:44 | Outpatient (OUT) | payer MEDICARE, BC, SELFPAY ==
--- NOTE | 2025-03-07 10:06 | PM.CN ---
Consult Note: HPI Data of Consult Patient: known to practice within the last 3 years Requesting Physician: Bessy Johnson NP Primary Care Provider: KIEL ALMODOVAR Consult Narrative Reason for consult: f/u Narrative: 79 year old female presents for evaluation of chronic left shoulder pain, low back pain, and SIJ pain. Pain today 2/10 sharp burning, increasing to 4/10 with standing, walking, twisting, pushing, pulling. currently utilizing tylenol, baclofen, tramadol, zonegran, and advil with benefit without side effects. has failed to benefit from > 6 weeks of PT and provider guided HEP, heat, ice, tylenol, NSAIDs, and oral steroids. recently underwent left suprascapular RFA with >80% improvement ongoing, and right L4-5 L5-S1 TFESI with >50% improvement ongoing in [place]. recent right SIJ injection providing 50% improvement per pt. cc:: CC: Bessy Johnson NP Review of Systems ROS Status of ROS 10 or more systems reviewed and unremarkable except as noted in history and below Musculoskeletal Reports: back pain, extremity pain and joint pain PFSH PFSH Medical History Osteoarthritis ?M19.90 - Unspecified osteoarthritis, unspecified site (ICD-10) Low back pain ?M54.50 - Low back pain, unspecified (ICD-10) Hiatal hernia ?K44.9 - Diaphragmatic hernia without obstruction or gangrene (ICD-10) Obesity ?E66.9 - Obesity, unspecified (ICD-10) Heart murmur ?R01.1 - Cardiac murmur, unspecified (ICD-10) Surgical History History of ear surgery ?Z98.890 - Other specified postprocedural states (ICD-10) History of phacoemulsification of cataract with intraocular lens implantation ?Z98.49 - Cataract extraction status, unspecified eye (ICD-10) ?Z96.1 - Presence of intraocular lens (ICD-10) Hx of appendectomy ?Z90.49 - Acquired absence of other specified parts of digestive tract (ICD-10) H/O: hysterectomy ?Z90.710 - Acquired absence of both cervix and uterus (ICD-10) History of tonsillectomy ?Z90.89 - Acquired absence of other organs (ICD-10) Meds Home Medications and Allergies Home Medications ?Medication ?Instructions ?Recorded ?Confirmed ?Type aspirin 81 mg tablet,delayed 81 mg PO DAILY 02/26/23 02/26/25 History release (Adult Low Dose Aspirin) denosumab 60 mg/mL subcutaneous 60 mg subcut .Q6 MONTHS 02/26/23 02/26/25 History syringe (Prolia) niacin 500 mg tablet 500 mg PO DAILY 02/26/23 02/26/25 History losartan 25 mg tablet 25 mg PO DAILY 03/01/23 02/26/25 History antiarthritic combination no.2 900 2 mg PO DAILY 07/15/23 02/26/25 History mg tablet (glucosamine-chondroitin) calcium 600 mg (as 2 cap PO DAILY 07/15/23 02/26/25 History carbonate)-vitamin D3 5 mcg (200 unit) capsule (Calcium 600 + D(3)) magnesium glycinate 100 mg (as 100 mg PO BID 07/15/23 02/26/25 History glycinate) tablet (Mag Glycinate) multivitamin (Daily Multi-Vitamin 1 tab PO DAILY 07/15/23 02/26/25 History tablet) omega 1-rum-ysw-fish oil 1,200 mg 2 cap PO DAILY 07/15/23 02/26/25 History (144 mg-216 mg) capsule (Fish Oil) vit C 250 mg-vit E 90 mg-zinc 40 1 tab PO BID 07/15/23 02/26/25 History mg-copper 1 pj-qusvrp-baucqk capsule (PreserVision AREDS-2) vitamin K2 100 mcg capsule 100 mcg PO DAILY 07/15/23 02/26/25 History cholecalciferol (vitamin D3) 50 2,000 unit PO BID 01/11/24 02/26/25 History mcg (2,000 unit) capsule (Vitamin D3) baclofen 10 mg tablet 10 mg PO BID PRN muscle spasm #180 09/13/24 02/26/25 Rx tabs tramadol 50 mg tablet See Rx Instructions .Route 12/19/24 02/26/25 Rx .COMPLEX PRN pain #75 tabs zonisamide 50 mg capsule 150 mg (3 x 50 mg) PO DAILY #90 01/04/25 02/26/25 Rx caps Allergies Allergy/AdvReac Type Severity Reaction Status Date / Time No Known Drug Allergies Allergy Verified 02/26/25 11:05 Exam Constitutional Documenting provider has reviewed patient's vital signs: yes Common normals: no apparent distress, oriented x3, healthy appearing, alert and well nourished General appearance: cooperative HENMT Common normals: normocephalic, hearing grossly normal bilaterally and moist oral mucous membranes Head and scalp: normocephalic Eye Common normals: PERRL Pupil: PERRL Neck & C-Spine Common normals: full ROM General: normal visual inspection Chest Common normals: inspection of chest normal Respiratory Common normals: normal respiratory effort, no retractions and no use of accessory muscles Back & Pelvis Lumbar spine/lower back: ROM limited, pain with ROM and straight leg raise negative bilaterally Sacroiliac joints: SI joint(s) abnormal Other: mildly positive right angel(patricks), gaenslens, thigh thrust, compression test positive facet loading sensation intact BLE strength 5/5 in BLE Extremity Common normals: normal to inspection and full ROM Left upper extremity: shoulder joint (mild pain with empty can, posterior liftoff. non tender to touch) Neuro Common normals: oriented x3 Sensorium/orientation: alert Motor exam: no movement abnormalities noted Psych Common normals: mental status grossly normal, thought process normal, cooperative, affect normal, speech normal and activity/motor behavior normal Speech: normal speech Thought process: normal thought process Assessment and Plan Assessment and Plan (1) Lumbar stenosis with neurogenic claudication: Assessment and Plan: 01/29/25 right L4-5 L5-S1 TFESI >70% improvement ongoing (2) Sacroiliitis: Assessment and Plan: 02/26/25 right SIJ injection 50% improvement ongoing (3) Bilateral primary osteoarthritis of hip: (4) Osteoarthritis of left shoulder: (5) Chronic prescription opiate use: Assessment and Plan: risks vs benefits reviewed, has failed to benefit from tylenol motrin aleve and diclofenac. finds benefit to tramadol 50mg BID PRN without side effects (6) Chronic left shoulder pain: Assessment and Plan: significant improvement ongoing post left suprascapular RFA 01/15/25 Plan continue current medications continue HEP as tolerated f/u 3 months, sooner if needed
--- OUTSIDE RECORDS SUMMARY | 2025-03-07 10:07 | XMS_ITS | CCD ---
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 Name Role Phone EMRE STAPLETON Unavailable Unavailable [...] Unavailable THOMAS, DR EMELY Becker Admitting Unavailable MARTHA, DR [...] MARTHA, DR EMELY Becker Primary Care Unavailable BLACK DIAMOND, DR YOUSUF Ferguson Consulting Unavailable MARTHA, DR [...] LEES ., DR YULI Nguyen Attending Unavailable BLACK DIAMOND, DR YOUSUF Ferguson Consulting Unavailable THOMAS, DR [...] Unavailable Wiley Price MD Primary Care Provider [phone] DUSTY NASSAR Attending Unavailable DUSTY NASSAR Attending Unavailable DUSTY NASSAR Attending Unavailable KRISS VELEZ E Attending Unavailable SANTIAGO KRISS E Referring Unavailable DUSTY NASSAR Attending Unavailable LARRYHLDUSTY ANTOINE Attending Unavailable DUSTY NASSAR Attending Unavailable Warren PALM, Andrius Vytautorlin Attending Unavailable Gijose l PALM, Andrius Vytautas Attending Unavailable Warren PALM, Andrius Vytautas Attending Unavailable Warren PALM, Andrius Vytautas Attending Unavailable Warren PALM, Andrius Vytautas Attending Unavailable Warren PALM, Andrius Vytautas Attending Unavailable Warren PALM, Andrius Vytautas Attending Unavailable Wiley Price MD Primary Care Provider [phone] Allergies Allergy Classification Reported Allergen(s) Allergy Type Date of Onset Reaction(s) Facility (1 source) ALLERGIES NOT ON FILE; Translations: [ALLERGIES NOT ON FILE] Propensity to adverse reactions (disorder) [facility] Repository Medications Current Medications Medication Drug [...] / zinc oxide 17.4 mg oral capsule (12 sources) Vitamin C Multiple Vitamins-Mineral s (PreserVision AREDS 2) capsule 1 (one) time each day at the same time Active PreserVision ARE DS 2 - as directed Orally Active aspirin 81 mg delayed release oral tablet (12 sources) Platelet Aggregation Inhibitor, Nonsteroidal Anti-inflammatory Drug aspirin 81 MG EC tab let 1 (one) time each day at the same time Active take 1 tablet by mouth once ginger y Aspirin 81 81 MG 1 tablet Orally Once a day Active baclofen 10 mg oral tablet (13 sources) gamma-Aminobutyric Acid-ergic Agonist Start: 04-30-2023 baclofen (Lioresal) 10 MG tablet every 12 (twelve) hours 04/30/2023 Active take 1 tablet by mouth every twe lve hours Baclofen 10 MG 1 tablet as needed Orally Twice a day Active calcium carbonate 1500 mg oral tablet (12 sources) take 1 tablet by arminda th once at mealtime calcium carbonate (Super Calcium) 1500 (600 Ca) MG tablet 1 tablet with meals Orally Once Active take 1 tablet by mouth every twe lve hours Calcium 600 MG 1 tablet with meals Orally Twice a day Active cholecalciferol 0.025 mg ora l tablet (12 sources) Vitamin D cholecalciferol (Vitamin D3) 25 MCG (1000 UT) tablet 1 (one) time each day at the same time Active take 1 tablet by arminda th every twenty-four hours Vitamin D 50 MCG (2000 UT) 1 tablet Orally Once a day Active chondroitin sulfates 400 mg / glucosamine sulfate 500 mg / methylsulfonylmethane 167 mg oral tablet (7 sources) Glucosamine-Eugene droitin-MSM (Awybql-Azphl-TQY-Double Str) 500-400-167 MG tablet every 12 (twelve) hours Active 1 ml denosumab 60 mg/ml prefilled syringe (13 sources) RANK Ligand Inhibitor denosumab (Prolia) 6 0 MG/ML solution prefilled syringe as directed Subcutaneous Active Fish Oils (5 sources) take 1 capsule by mouth once daily Fish Oil 1000 MG 1 capsule Orally Once a day Active Mijitb-Yuzl-FAK-Ca-C-CtCl -SeCu - (5 sources) Xswbqw-Qlyn-LAG- Mb-T-IgWl-SeCu - as directed Orally Active losartan potassium 25 mg oral tablet (13 sources) Angiotensin 2 Receptor Héctor Star t: 12-27 losartan (Cozaar) 25 MG tabl et Oral for 90 Days 02/19/2023 Active Magnesium glycinate (12 sources) Magnesium Glycin ate 100 MG capsule 2 capsules 1 (one) time each day at the same time Active Magnesium Glycin ate 100 MG as directed Orally Active Multiple Vitamins-Minerals (Womens 50+ Multi Vitamin) tablet (7 sources) Multiple Vitamins-Minerals (Womens 50+ Multi Vitamin) tablet as directed Orally Active niacin 500 mg oral tablet (12 sources) Nicotinic Acid niacin 500 MG ta blet 1 (one) time each day at the same time Active Brighton-3 Fatty Acids (Fish Oil) 1200 MG capsule delayed-release (7 sources) take 1 capsule by mouth every twelve hours Brighton-3 Fatty Acids (Fish Oil) 1200 MG capsule delayed-release 1 capsule every 12 (twelve) hours Active traMADol hydrochloride 50 mg oral tablet (7 sources) Opioid Agonist Start: 024 take 1 tablet by mouth twice daily as needed for pain traMADol (Ultram) 50 MG tablet TAKE 1 TABLET BY MOUTH TWICE A DAY NEEDED FOR PAIN MUST LAST 30 DAYS 01/27/2024 Active vitamin k 0.1 mg oral tablet (5 sources) Vitamin K2 100 M CG as directed Orally Active vitamin k2 0.1 mg oral capsule (7 sources) Menaquinone-7 (V itamin K2) 100 MCG capsule as directed Orally Active Womens 50+ Multi Vitamin - (5 sources) Womens 50+ Multi Vitamin - as directed Orally Active zonisamide 50 mg oral capsule (12 sources) Anti-epileptic Agent take 3 capsules by mouth once daily at bedtime zonisamide (Zonegran) 50 MG capsule TAKE 3 CAPSULES BY MOUTH EVERY DAY AT BEDTIME Active Zonisamide 50 MG as directed Orally Active Completed/Discontinued Medications Medication Drug Class(es) Dates Sig (Normalized) Sig (Original) 0.05 ml aflibercept 40 mg/ml injection (3 sources) Vascular Endothelial Growth Factor Inhibitor Start: 02-28-2025 End: 02-28-2025 2 mg, Intravitreal, Once PRN Procedure, Starting on Wed02/28/25 at 1000, For 1 dose Start: 09-26-2024 End: 09-26-2024 2 mg, Intravitreal, [...] Classification Problem Date Documented Date Episodic/Chronic Cataract (8 sources) 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; Translations: [Other [...] unspecified] Chronic Other aftercare (3 sources) Other meterman (current) drug therapy; Translations: [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 CURRENT DRUG THERAPY] Onset: 03-12-2022 Episodic Other [...] Retinal detachments; defects; vascular occlusion; and retinopathy (19 sources) Exudative age-related macular degeneration; Translations: [Exudative [...] that caused by tuberculosis or sexually transmitteddisease) (7 sources) Blepharitis of upper and lower eyelids [...] [SARCOPENIA] Onset: 05-21-2022 Episodic Other eye disorders (7 sources) Dry eyes; Translations: [Dry eye syndrome [...] Test Name Value Interpretation Reference Range Facility Optical coherence tomography study reporton 03-05-2025 [facility] Left eye Ophthalmologic chata tmenton 02-28-2025 [facility] Radiology Study observation (narrative) [facility] Optical coherence tomography study reporton 02-28-2025 Radiology Study observation (narrative) [facility] Left eye Ophthalmologic chata tmenton 09-26-2024 [facility] Radiology Study observation (narrative) [facility] Optical coherence tomography study reporton 09-26-2024 [facility] Radiology Study observation (narrative) [facility] eye Ophthalmologic chata tmenton 07-25-2024 [facility] Radiology Study observation (narrative) [facility] Optical coherence tomography study reporton 07-25-2024 [facility] Radiology Study observation (narrative) [facility] Left eye Ophthalmologic chata tmenton 05-30-2024 [facility] Radiology Study observation (narrative) [facility] Optical coherence tomography study reporton 05-30-2024 [facility] Radiology Study observation (narrative) [facility] 36on 05-17-2023 36 Spoke with patient. [...] to someone who does SCS. [facility] 05-14-2023 36 Left message for an reynoso [...] Wednesday to follow-up regarding this. [facility] Telephoneon 05-14-2023 Telephone [id number] Erlinda1945 F Date Provider Department Center 05/14/2023 ALLISON SKAGGS [facility] Second Fl Family History Problem Relation Age of Onset Other Mother Stomach cancer Father Family Status - Relation Status Age at Mother Father Normal [facility] Consulton 05-13-2023 Consult [id number] Erlinda ice 1945 F Date Provider Department Center 05/13/2023 148ELICEO, [facility] Second Fl Family History Problem Relation Age of Onset Other Mother Stomach cancer Father Family Status - Relation Status Age at Mother Father Level of Service:[id number] DE OFFICE/OUTPATIENT NEW MODERATE MDM 45-59 MINUTES Reason for Visit and Comments: Consult [484] - Pt is here for a CO visit for Spinal Stenosis. [facility] 36on 04-16-2023 36 LVM for pt to call jose shanks to schedule with or Dr. Lopez for Lunbar Stenosis. Imaging requested from Brent. Normal [facility] MRI LSPINE WO CONon 02-11-20 MRI LSPINE WO CON EXAMINATION: MRI LSP [...] OFE COFFEY Date: 2023-02-10 07:16 Normal [facility] CALCIUMon 12-24-2022 Calcium [Mass/Vol] 9.7 mg/dL Normal 8.5-10.1 [facility] Comment on above: Performed By: #### C A, CREA ####[facility] [address] [place] [address]Dr. Holly Fisher CREATININEon 12-24-2022 Creatinine [Mass/Vol] 0.62 mg/dL Normal 0.55-1.02 [facility] Comment on above: Performed By: #### C A, CREA ####[facility] [address] [place] [address]Dr. [facility] EGFR-AF TURKMEN >60 Normal >=60 [facility] Comment on above: Performed By: #### C A, CREA ####[facility] [address] [place] [id number]. [facility] EGFR-NON AF TURKMEN >60 Normal >=60 [facility] Comment on above: Performed By: #### C A, CREA ####[facility] [address] [place], [place] [address]Dr. [facility] SARS-CoV-2 (COVID-19) RNA FRED+probe Ql (Unsp spec) Not detected Normal NOT DETECTED [facility] Comment on above: Result Comment: This test is not yet approved or cleared by the [place] FDA. When there are no FDA-approved or cleared tests available, and other criteria are met, FDA can make tests available under an emergency access mechanism called an Emergency Use Authorization (EUA). The EUA for this test is supported by the Correctional Substance Abuse Counselor of Health and Human Service's (HHS's) declaration [...] with SARS-CoV-2. Performed By: #### C VDTBH ####[facility] [address] [place], [place] [address]CtDr. Holly Fisher Covid-19 PCR ([facility])on 07-28 SARS-CoV-2 (COVID-19) RNA FRED+probe Ql (Unsp spec) Not detected Normal NOT DETECTED [facility] Comment on above: Result Comment: This test is not yet approved or cleared by the [place] FDA. When there are no FDA-approved or cleared tests available, and other criteria are met, FDA can make tests available under an emergency access mechanism called an Emergency Use Authorization (EUA). The EUA for this test is supported by the [place] of Health and Human Service's (HHS's) declaration [...] SARS-CoV-2. Performed By: #### C VDTB #### [facility] [address] [place], [place] [address] Dr. Holly Fisher CALCIUMon 06-12-2022 Calcium [Mass/Vol] 9.0 mg/dL Normal 8.5-10.1 [facility] Comment on above: Performed By: #### C XAVIER ALMEIDA ####[facility] [address] [place] [address]Dr. Holly Fisher CREATININEon 06-12-2022 Creatinine [Mass/Vol] 0.65 mg/dL Normal 0.55-1.02 [facility] Comment on above: Performed By: #### C XAVIER ALMEIDA #### [facility] [address] [place] [address] [address] Holly Fisher EGFR-AF TURKMEN >60 Normal >=60 [facility] Comment on above: Performed By: #### C XAVIER ALMEIDA #### [facility] [address] [place] [address] [address] Holly Fisher EGFR-NON AF TURKMEN >60 Normal >=60 [facility] Comment on above: Performed By: #### C XAVIER ALMEIDA #### [facility] [address] [place] [address] [address] Holly Fisher XR LSPINE W_OBLS AND [...] YOUSUF ORTIZ Date: 2022-05-04 08:47 Normal [facility] CBC AUTO DIFFon 03-05-2022 BASO # 0.1 103/ul Normal 0.0-0.1 [facility] Comment on above: Performed By: #### C ANGELI ####[facility] [address] [place] [address]Dr. Holly Fisher Basophils/100 WBC (Bld) 1.0 % Normal 0.2-2.0 [facility] Comment on above: Performed By: #### C ANGELI ####[facility] [address] [place] [id number]. Holly Fisher EO # 0.2 103/ul Normal 0.0-0.7 [facility] Comment on above: Performed By: #### C BC ####[facility] [address] [place], [place] [id number]. Holly Fisher Eosinophils/100 WBC (Bld) 2.4 % Normal 0.9-7.0 [facility] Comment on above: Performed By: #### C BC ####[facility] [address] [place], [place] [address]Dr. Holly Fisher Erythrocyte distribution width (RBC) [Ratio] 14.4 % Normal 11.0-15.0 [facility] Comment on above: Performed By: #### C BC ####[facility] [address] [place], [place] [address]Dr. Holly Fisher Hematocrit (Bld) [Volume fraction] 41.1 % Normal 36.0-48.0 [facility] Comment on above: Performed By: #### C BC ####[facility] [address] [place], [place] [address]Dr. Holly Fisher Hemoglobin (Bld) [Mass/Vol] 13.4 g/dL Normal 12.0-16.0 [facility] Comment on above: Performed By: #### C BC ####[facility] [address] [place], [place] [address]Dr. Holly Fisher IG # 0.03 10e3/ul Normal 0.00-0.03 [facility] Comment on above: Performed By: #### C BC ####[facility] [address] [place], [place] [address]Dr. Holly Fisher IG % 0.5 % Normal 0.0-0.5 [facility] Comment on above: Performed By: #### C BC ####[facility] [address] [place], [place] [address]Dr. Holly Fisher LYMPH # 1.5 103/ul Normal 1.2-3.8 [facility] Comment on above: Performed By: #### C BC ####[facility] [address] [place] [id number]. Holly Fisher Lymphocytes/100 WBC (Bld) 24.3 % Normal 20.5-60.0 [facility] Comment on above: Performed By: #### C BC ####[facility] [address] [place] [id number]. Lindaban Fisher MANUAL DIFF REQ NO Normal [facility] Comment on above: Performed By: #### C BC ####[facility] [address] [place] [id number]. Holly Phillip MCH (RBC) [Entitic mass] 30.3 pg Normal 26.7-34.0 [facility] Comment on above: Performed By: #### C BC ####[facility] [address] [place], [place] [address]Dr. Holly Phillip MCHC (RBC) [Mass/Vol] 32.6 g/dL Normal 29.9-35.2 [facility] Comment on above: Performed By: #### C BC ####[facility] [address] [place] [id number]. Holly Phillip MCV (RBC) [Entitic vol] 93.0 fL Normal 81.0-99.0 [facility] Comment on above: Performed By: #### C BC ####[facility] [address] [place] [address]Dr. Holly Fisher MONO # 0.5 103/ul Normal 0.3-0.8 [facility] Comment on above: Performed By: #### C BC ####[facility] [address] [place] [id number]. Lindaban Fisher Monocytes/100 WBC (Bld) 7.3 % Normal 1.7-12.0 [facility] Comment on above: Performed By: #### C BC ####[facility] [address] [place], [place] [address]Dr. Holly Fisher NEUT # 4.1 103/ul Normal 1.4-6.5 [facility] Comment on above: Performed By: #### C BC ####[facility] [address] [place] [id number]. Holly Fisher Neutrophils/100 WBC (Bld) 64.5 % Normal 43.0-75.0 [facility] Comment on above: Performed By: #### C BC ####[facility] [address] [place], [place] [address]Lp. Holly Fisher Platelet mean volume (Bld) [Entitic vol] 10.5 fL Normal 9.5-13.5 [facility] Comment on above: Performed By: #### C BC ####[facility] [address] [place] [id number]. Holly Fisher PLT 253 103/ul Normal 150-450 [facility] Comment on above: Performed By: #### C BC ####[facility] [address] [place] [id number]. Holly Fisher RBC 4.42 106/ul Normal 4.20-5.40 [facility] Comment on above: Performed By: #### C BC ####[facility] [address] [place] [id number]. Holly Fisher WBC 6.3 103/ul Normal 4.0-11.0 [facility] Comment on above: Performed By: #### C BC ####[facility] [address] [place] [id number]. Holly Fisher LIPID PROFILEon 03-05-2022 CHOL-HDL RATIO NORM SEE BELOW Normal [facility] Comment on above: Result Comment: 3.3 - 4.4 LOW RISK 4.4 - 7.1 AVERAGE RISK 7.1 - 11.0 MODERATE RISK >11.0 HIGH RISK Performed By: #### L IPID, CMP #### [facility] [address] [place] [address] [address] Holly Fisher Cholesterol [Mass/Vol] 263 mg/dL Critically high <=200 [facility] Comment on above: Performed By: #### L IPID, CMP #### [facility] [address] [place] [address] [address] Holly Fisher Cholesterol in HDL [Mass/Vol] 63 mg/dL Critically high 40-60 [facility] Comment on above: Performed By: #### L IPID, CMP #### [facility] [address] [place] [address] [address] Holly Fisher Cholesterol in LDL [Mass/Vol] 160.2 mg/dL Normal [facility] Comment on above: Performed By: #### L IPID, CMP #### [facility] [address] [place] [address] [address] Holly Fisher Cholesterol.total/ Cholesterol in HDL [Mass ratio] 4.2 {ratio} Normal [facility] Comment on above: Performed By: #### L IPID, CMP #### [facility] [address] [place] [address] [address] Holly Fisher HDL NORMAL > or = 60 mg/dl - LO W CARDIOVASCULAR RISK <40 mg/dl - HIGH CARDIOVASCULAR RISK Normal [facility] Comment on above: Performed By: #### L IPID, CMP #### [facility] [address] [place] [address] Dr. Holly Fisher LDL CALC NORMAL SEE BELOW Normal [facility] Comment on above: Result Comment: <100 mg/dl OPTIMAL 100 - 129 mg/dl NEAR OR ABOVE OPTIMAL 130 - 159 mg/dl BORDERLINE HIGH 160 - 189 mg/dl HIGH >190 mg/dl VERY HIGH Performed By: #### L IPID, CMP #### [facility] [address] [place] [address] Dr. Holly Fisher Triglyceride [Mass/Vol] 199 mg/dL Critically high <=150 [facility] Comment on above: Performed By: #### L IPID, CMP #### [facility] [address] [place] [address] Dr. Holly Fisher VLDL CALC 39.8 mg/dL Normal [facility] Comment on above: Performed By: #### L IPID, CMP #### [facility] [address] [place] [address] Dr. Holly Fisher MG MAMM SCREEN 3D SHERRIE CADon 03-05-2022 MG MAMM SCREEN 3D SHERRIE CAD Patient: LETTY COFFEY Exam Date: 03/05/2022 : 1945 Gender:F Ordering : DR EMELY THOMAS M.D. Admission #: [id number] Family : Order #: [id number] CLICK HERE TO VIEW EXAM RADIOLOGY REPORT [...] No Treatments None Family Cancers None LOCATION: [facility] BREAST COMPOSITION: Scattered areas fibroglandular [...] Ortiz MD on 03/05/2022 at 09:55 Normal [facility] PROF 14(COMP METB)on 022 Albumin [Mass/Vol] 3.9 g/dL Normal 3.4-5.0 [facility] Comment on above: Performed By: #### L IPID, CMP #### [facility] [address] [place] [address] Dr. Holly Fisher Albumin/Globulin [Mass ratio] 1.1 {ratio} Normal [facility] Comment on above: Performed By: #### L IPID, CMP #### [facility] [address] [place] [address] [address] Holly Fisher ALP [Catalytic activity/Vol] 54 U/L Normal 46-116 [facility] Comment on above: Performed By: #### L IPID, CMP #### [facility] [address] [place] [address] [address] Holly Fisher ALT [Catalytic activity/Vol] 22 U/L Normal 14-59 [facility] Comment on above: Performed By: #### L IPID, CMP #### [facility] [address] [place] [address] [address] Holly Fisher Anion gap [Moles/Vol] 12.5 mmol/L Normal [facility] Comment on above: Performed By: #### L IPID, CMP #### [facility] [address] [place] [address] [address] Holly Fisher AST [Catalytic activity/Vol] 14 U/L Critically low 15-37 [facility] Comment on above: Performed By: #### L IPID, CMP #### [facility] [address] [place] [address] [address] Holly Fisher Bilirubin [Mass/Vol] 0.4 mg/dL Normal 0.2-1.0 [facility] Comment on above: Performed By: #### L IPID, CMP #### [facility] [address] [place] [address] Dr. Holly Fisher Calcium [Mass/Vol] 8.6 mg/dL Normal 8.5-10.1 [facility] Comment on above: Performed By: #### L IPID, CMP #### [facility] [address] [place] [address] Dr. Holly Fisher Chloride [Moles/Vol] 106 mmol/L Normal 98-107 [facility] Comment on above: Performed By: #### L IPID, CMP #### [facility] [address] [place] [address] [address] Holyl Fisher CO2 [Moles/Vol] 26.8 mmol/L Normal 21.0-32.0 [facility] Comment on above: Performed By: #### L IPID, CMP #### [facility] [address] [place] [address] Dr. Holly Fisher Creatinine [Mass/Vol] 0.60 mg/dL Normal 0.55-1.02 [facility] Comment on above: Performed By: #### L IPID, CMP #### [facility] [address] [place] [address] [address] Holly Fisher EGFR-AF TURKMEN >60 Normal >=60 [facility] Comment on above: Performed By: #### L IPID, CMP #### [facility] [address] [place] [address] [address] Holly Fisher EGFR-NON AF TURKMEN >60 Normal >=60 [facility] Comment on above: Performed By: #### L IPID, CMP #### [facility] [address] [place] [address] [address] oHlly Fisher Globulin (S) [Mass/Vol] 3.4 g/dL Normal [facility] Comment on above: Performed By: #### L IPID, CMP #### [facility] [address] [place] [address] Dr. Holly Fisher Glucose [Mass/Vol] 98 mg/dL Normal 74-106 [facility] Comment on above: Performed By: #### L IPID, CMP #### [facility] [address] [place] [address] Dr. Holly Fisher Potassium [Moles/Vol] 4.3 mmol/L Normal 3.5-5.1 [facility] Comment on above: Performed By: #### L IPID, CMP #### [facility] [address] [place] [address] Dr. Holly Fisher Protein [Mass/Vol] 7.3 g/dL Normal 6.4-8.2 [facility] Comment on above: Performed By: #### L IPID, CMP #### [facility] [address] [place] [address] Dr. Holly Fisher Sodium [Moles/Vol] 141 mmol/L Normal 136-145 [facility] Comment on above: Performed By: #### L IPID, CMP #### [facility] [address] [place] [address] Dr. Holly Fisher Urea nitrogen [Mass/Vol] 14.0 mg/dL Normal 7.0-18.0 [facility] Comment on above: Performed By: #### L IPID, CMP #### [facility] [address] [place] [address] Dr. Holly Fisher Urea nitrogen/Creatinin e [Mass ratio] 23.3 mg/mg Normal [facility] Comment on above: Performed By: #### L IPID, [facility] #### [facility] [address] [place] [address] Dr. Holly Fisher XR DEXA BONE DENSITYon [...] by: YOUSUF ORTIZ Date: 2022-03-05 10:00 Normal [facility] History and Physicalon 04-27 HIM IP Note OR Conductor Yard Normal [place] [facility] O[facility]IVE REPORTon 7 [facility] COFFEY : 49[facility] REC NO: [id number] ROOM:ACCOUNT NO: [id number] ADMISSION DATE: 04/27/17PHYSICIAN: EMRE STAPLETONDATE OF PROCEDURE: [...] used to engage the membrane in a xdnub-sff-nypu technique andthe membrane was elevated from the [...] having tolerated theprocedure well without complications.EMRE Llanes DABSHAVOND:04/27/2017 9:59:31 CD/[id number]_VGPRS_TJob#: [id number] Doc#: [id number] [facility] Vital Signs Date Time Vital Sign Value Performing Clinician Facility 06-30-2023 09:15-0400 Body height 158.75 cm Emely Thomas Other [facility] Other 06-30-2023 09:15-0400 Body mass index (BMI) [Ratio] 30.95 kg/m2 Emely Thomas Other [facility] Other 06-30-2023 09:15-0400 Body temperature 96.5 [degF] Emely Thomas Other [facility] Other 06-30-2023 09:15-0400 Body weight 78.02 kg Emely Thomas Other [facility] Other 06-30-2023 09:15-0400 Diastolic blood pressure 76 mm[Hg] Emely Thomas Other [facility] Other 06-30-2023 09:15-0400 Systolic blood pressure 156 mm[Hg] Emely Thomas Other [facility] Other 04-13-2023 15:00-0400 Body height 158.75 cm Emely Thomas Other [facility] Other 04-13-2023 15:00-0400 Body mass index (BMI) [Ratio] 31.49 kg/m2 Emely Thomas Other [facility] Other 04-13-2023 15:00-0400 Body weight 79.38 kg Emely Thomas Other [facility] Other 04-13-2023 15:00-0400 Diastolic blood pressure 78 mm[Hg] Emely Thomas Other [facility] Other 04-13-2023 15:00-0400 Systolic blood pressure 135 mm[Hg] Emely Thomas Other [facility] Other 03-18-2023 08:40-0400 Body height 158.75 cm Ej Thomas Other [facility] Other 03-18-2023 08:40-0400 Body mass index (BMI) [Ratio] 31.67 kg/m2 Ej Thomas Other [facility] Other 03-18-2023 08:40-0400 Body weight 79.83 kg Ej Thomas Other [facility] Other 03-18-2023 08:40-0400 Diastolic blood pressure 84 mm[Hg] Ej Thomas Other [facility] Other 03-18-2023 08:40-0400 Systolic blood pressure 134 mm[Hg] Ej Thomas Other [facility] Other 01-21-2023 11:00-0400 Body height 158.75 cm Emely Thomas Other [facility] Other 01-21-2023 11:00-0400 Body mass index (BMI) [Ratio] 32.21 kg/m2 Emely Thomas Other [facility] Other 01-21-2023 11:00-0400 Body weight 81.19 kg Emely Thomas Other [facility] Other 01-21-2023 11:00-0400 Diastolic blood pressure 82 mm[Hg] Emely Thomas Other [facility] Other 01-21-2023 11:00-0400 SaO2% (BldA) [Mass fraction] 97 % Emely Thomas Other [facility] Other 01-21-2023 11:00-0400 Systolic blood pressure 142 mm[Hg] Emely Thomas Other [facility] Other Encounters Encounter Date Encounter Type Care Provider Facility Start: 02-28-2025 End: 02-28-2025 ambulatory DUSTY NASSAR Not Available Comment on above: Retinal Injection Start: 02-26-2025 End: 02-26-2025 ambulatory Andrius Phyllisytautas Juanitis [facility]: [facility] Start: 01-15-2025 End: 01-15-2025 ambulatory Andrius Phyllisytautas Juanitis Facility: [facility] Start: 12-06-2024 End: 12-06-2024 ambulatory DUSTY NASSAR Not Available Start: 10-02-2024 End: 10-02-2024 ambulatory Andrius Phyllisytautas Warren PALM Facility: [facility] Start: 09-26-2024 End: 09-26-2024 Bamboo flowsheet Dusty [...] Available Start: 09-25-2024 End: 09-25-2024 ambulatory Andrius Phyllisytautas Juanitis Facility: [facility] Start: 09-18-2024 End: 09-18-2024 ambulatory Andrius Phyllisytautorlin Kelley MD Facility: [facility] Start: 09-11-2024 End: 09-11-2024 ambulatory Andrius Phyllisytautas Juanitis Facility: [facility] Start: 08-21-2024 End: 08-21-2024 ambulatory Andrius Phyllisytautas Juanitis Facility: [facility] Start: 07-25-2024 End: 07-25-2024 Bamboo flowsheet Dusty Lauren Nassar DO Work Phone: [facility] Start: 07-25-2024 End: 07-25-2024 Bamboo flowsheet Dusty Lauren Nassar DO Work Phone: [facility] Start: 07-25-2024 End: 07-25-2024 Clinical Support Dusty Nassar DO Work Phone: [facility] Comment on above: Macular Degeneration ; Retinal Injection Start: 05-30-2024 End: 05-30-2024 Bamboo flowsheet Dusty Nassar DO Work Phone: [facility] Start: 05-30-2024 End: 05-30-2024 Bamboo flowsheet Dusty Nassar DO Work Phone: [facility] Start: 05-30-2024 End: 05-30-2024 ambulatory DUSTY NASSAR Not Available Start: 05-10-2024 End: 05-10-2024 ambulatory KRISS VELEZ Not Available Start: 04-05-2024 End: 04-05-2024 ambulatory DUSTY NASSAR Not Available Start: 06-30-2023 End: 06-30-2023 ambulatory Emely Thomas Other [facility] Other Start: 06-30-2023 Office outpatient vi sit 15 minutes Emely Thomas [facility] Start: 05-18-2023 End: 05-18-2023 ambulatory Emely Thomas Other [facility] Other Start: 05-18-2023 Telephone encounter Emely Thomas [facility] Start: 05-13-2023 End: 05-14-2023 ambulatory [facility] Start: 05-13-2023 End: 05-13-2023 ambulatory [facility] Start: 04-16-2023 End: 04-17-2023 ambulatory [facility] Start: 04-13-2023 End: 04-13-2023 ambulatory Emely Thomas Other [facility] Other Start: 04-13-2023 Office outpatient vi sit 15 minutes Emely Thomas [facility] Start: 04-05-2023 End: 04-05-2023 ambulatory Ej Thomas Other [facility] Other Start: 04-05-2023 Telephone encounter Ej Thomas [facility] Start: 03-18-2023 End: 03-18-2023 ambulatory Ej Thomas Other [facility] Other Start: 03-18-2023 Office outpatient ne w 30 minutes Ej Thomas [facility] Start: 02-09-2023 End: 02-10-2023 ambulatory NARENDRANATH LAKSHMIPATHY . Facility:[facility] Start: 02-01-2023 ambulatory NARENDRANATH LAKSHMIPATHY . Facility:[facility] Start: 01-28-[address] EMELY THOMAS Facil ity:[facility] Start: 01-28-2023 End: 01-29-2023 ambulatory NARENDRANATH LAKSHMIPATHY . Facility:[facility] Start: 01-21-2023 End: 01-21-2023 ambulatory Emely Thomas Other [facility] Other Start: 01-21-2023 Office outpatient vi sit 15 minutes Emely Thomas [facility] Start: 01-12-2023 End: 01-12-2023 ambulatory NARENDRANATH LAKSHMIPATHY . Facility:[facility] Start: 12-31-2022 End: 01-01-[address] EMELY THOMAS Facility:[facility] Start: 12-28-2022 End: 12-28-[address] EMELY THOMAS Facility:[facility] Start: 12-24-2022 End: 12-25-[address] EMELY THOMAS Facility:[facility] Start: 10-07-2022 End: 10-08-2022 ambulatory SHAWNA RUIZ . Facility:[facility] Start: 09-03-2022 Encounter for preprocedural laboratory examination DR YULI LEES . [facility] Start: 09-01-2022 End: 09-01-[address] YULI LEES . Facility:[facility] Start: 08-28-2022 End: 08-29-[address] EMELY THOMAS Facility:[facility] Start: 08-28-2022 End: 08-29-2022 Encounter for preprocedural laboratory examination DR EMELY THOMAS Facility:[facility] Start: 08-11-2022 End: 08-11-[address] YULI LEES . Facility:[facility] Start: 08-08-2022 Encounter for preprocedural cardiovascular examination SHAWNA RUIZ . [facility] Start: 08-07-2022 End: 08-08-2022 ambulatory [...] Start: 04-27-2017 End: 04-27-2017 Ambulatory EMRE STAPLETON [facility] Procedures Date Procedure Procedure Detail Performing Clinician Start: 02-28-2025 Intravitreal njx pharmacologic agt spx Dusty Nassar DO Work Phone: Start: 02-28-2025 Computerized ophthalmic imaging retina Dusty Nassar DO Work Phone: Start: 09-26-2024 Intravitreal njx pharmacologic agt spx [...] DO Work Phone: Start: 05-30-2024 End: 05-30-2024 [facility] medical xm&eval comprhnsv estab pt 1/> Exudative [...] 05/24/2025 10:00 AM EDT Office Visit [facility] [address] [place] [phone] Kriss Velez, DO [address] [place] [address] [facility] Start: 03-07-2025 End: 03-07-2025 Clinical Support 03/07/2025 1:00 PM EDT Clinical Support [facility] [address] [place] [phone] Dusty Nassar, DO [address] [place] [address] [facility] Start: 09-26-2024 End: 09-26-2024 Clinical Support 09/26/2024 9:00 AM EST Clinical Support [facility] [address] [place] [phone] Dusty Nassar, DO [address] [place] [address] Arrived [facility] Comment on above: Arrived Start: 07-25-2024 End: 07-25-2024 Clinical Support 07/25/2024 1:45 PM EDT Clinical Support [facility] [address] [place] [phone] Dusty Nassar, DO [address] [place] [address] Arrived [facility] Comment on above: Arrived Start: 05-30-2024 End: 05-30-2024 Clinical Support 05/30/2024 9:45 AM EDT Clinical Support [facility] [address] [place] [phone] Dusty Nassar DO [address] [place] [address] Arrived [facility] Comment on above: Arrived Start: 05-28-2024 Influenza vaccination Influenza Vacc ine (#1) [facility] Start: 02-26-2023 ambulatory Ambulatory Facility:[facility] 1 Intravitreal Injection, Pharmacologic Agent - OD - Right Eye Intravitreal Injection, Pharmacologic Agent - OD - Right Eye Ophthalmology Routine 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 eye with active choroidal neovascularization (HCC) ([facility]/HCC) Ordered: 07/25/2024 [facility] Work Phone: Comment on above: Ordered: 07/25/2024 Intravitreal Injection, Pharmacologic Agent - OD - Right Eye Intravitreal Injection, Pharmacologic Agent - OD - Right Eye Ophthalmology Routine 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 eye with active choroidal neovascularization (HCC) ([facility]) Ordered: 05/30/2024 [facility] Work Phone: Comment on above: Ordered: 05/30/2024 Immunizations Immunization Date Immunization Notes Care Provider Fa cili 08-11-2024 influenza virus vacc ine, unspecified formulation Dusty Nassar DO Work Phone: [facility] 07-26-2023 influenza virus vacc ine, unspecified formulation Dusty Nassar DO Work Phone: [facility] Payers Date Payer Category [facility]ayer [facility] [id number] 2018 Unknown [id number] [id number]. [id number] 2017 Medicare [id number]. 1.13.693.2. [id number] 2014 Unknown [id number] 1959 Blue Cross Blue Shield [id number] 2.16.840.1.629777.19 1959 Medicare [id number] 2.16.840.1.010200.19 1959 Unknown [id number] 1947 Unknown [id number] 2.16.840.1.296575.3.579.2. 593 1947 Unknown [id number] 2.16.840.1.197791.3.579.2. 593 1947 Unknown [id number] 2.16.840.1.010452.3.579.2. 593 1947 Unknown [id number] 2.16.840.1.276656.3.579.2. 593 1947 Unknown [id number] 2.16.840.1.186112.3.579.2. 593 1947 Unknown [id number] 2.16.840.1.389004.3.579.2. 593 1947 Unknown [id number] 2.16.840.1.368929.3.579.2. 593 1947 Unknown [id number] 2.16.840.1.915598.3.579.2. 593 1947 Unknown [id number] 2.16.840.1.642935.3.579.2. 593 1947 Unknown [id number] 2.16.840.1.974764.3.579.2. 593 1947 Unknown [id number] 2.16.840.1.557076.3.579.2. 593 1947 Unknown [id number] 2.16.840.1.157727.3.579.2. 593 1947 Unknown [id number] 2.16.840.1.053880.3.579.2. 593 1947 Unknown [id number] 2.16.840.1.072927.3.579.2. 593 1947 Unknown [id number] 2.16.840.1.279858.3.579.2. 593 1947 Unknown [id number] 2.16.840.1.814989.3.579.2. 593 1947 Unknown [id number] 2.16.840.1.685855.3.579.2. 593 1947 Unknown [id number] 2.16.840.1.913759.3.579.2. 593 1947 Unknown [id number] 2.16.840.1.759856.3.579.2. 593 1947 Unknown [id number] 2.16.840.1.090521.3.579.2. 593 1947 Unknown [id number] 2.16.840.1.658340.3.579.2. 593 1947 Unknown [id number] 2.16.840.1.283310.3.579.2. 593 1947 Unknown [id number] 2.16.840.1.167835.3.579.2. 593 1947 Unknown [id number] 2.16.840.1.552813.3.579.2. 593 1947 Unknown [id number] 2.16.840.1.327805.3.579.2. 593 1947 Unknown [id number] 2.16.840.1.676127.3.579.2. 1259 1947 Unknown [id number] 2.16.840.1.499430.3.579.2. 1259 1947 Unknown [id number] 2.16.840.1.822525.3.579.2. 1259 1947 Unknown [id number] 2.16.840.1.493966.3.579.2. 1259 1947 Unknown [id number] 2.16.840.1.589155.3.579.2. 1259 1947 Unknown [id number] 2.16.840.1.001453.3.579.2. 1259 1947 Unknown [id number] 2.16.840.1.626828.3.579.2. 1259 1947 Unknown [id number] 2.16.840.1.500620.3.579.2. 196 1947 Unknown [id number] 2.16.840.1.471104.3.579.2. 196 1947 Unknown [id number] 2.16840.1.153684.3.579.2. 196 1947 Unknown [id number] 2.16840.1.465736.3.579.2. 196 1947 Unknown [id number] 2.16.840.1.745506.3.579.2. 196 1947 Unknown [id number] 2.16.840.1.158404.3.579.2. 196 1947 Unknown [id number] 2.16.840.1.810167.3.579.2. 196 Social History Date Type Detail Facility Unknown if ever smoked [facility] Other Start: 05-30-2024 End: 02-28-2025 Sex Assigned At [facility] Other Start: 10-11-2023 Tobacco smoking status NHIS Never smoked tobacco [facility] Start: 10-11-2023 Tobacco use and exposure Smokeless tobacco non-user [facility] Start: 05-30-2024 End: 02-28-2025 History of Social function [facility] Start: 1945 Sex assigned at Not on file [facility] Clinical Notes 03-05-2022 to 03-05-2025 Dusty Nassar, DO - 02/28/2025 9:15 AM Zan Nassar, DO - 09/26/2024 9:00 AM Uzma Nassar, DO - 07/25/2024 1:45 PM Zan Nassar, DO - 05/30/2024 9:45 AM EDT Note Date & Type Note Facility 03-05-2025 Note Right Eye Quality was good. Scan locations included subfoveal. Progression has worsened. Findings include intraretinal fluid, pigment epithelial detachment. Left Eye Quality was good. Scan locations included subfoveal. Progression has been stable. Findings include abnormal foveal contour. [facility] 02-28-2025 Note Time Out 02/28/2025. 10:00 AM. Confirmed correct patient, procedure, site, and patient consented. Anesthesia Topical anesthesia was used. Anesthetic medications included Lidocaine 2%, Proparacaine 0.5%. Procedure Preparation included 5% betadine to ocular surface, eyelid speculum. Injection: 2 mg aflibercept 2 MG/0.05ML Route: Intravitreal, Site: Left Eye [facility]: 87124-613-85, Lot: [id number], Expiration date: 03/27/2026, Waste: 0 mL Post-op Post injection exam [...] increased pain, redness, decreased vision or concerns. [facility] 02-28-2025 History of Presen t illness Narrative Images from the original note were not included. Assessment/Plan Diagnoses and all orders for this visit: 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 eye with active choroidal neovascularization ([facility]/HCC) - OCT, Retina - OU - Both Eyes - Intravitreal Injection, Pharmacologic Agent - OS - Left Eye - aflibercept (Eylea) syringe 2 mg Intravitreal Injection, Pharmacologic Agent - OS - Left Eye Time Out 02/28/2025. 10:00 AM. Confirmed correct patient, procedure, site, and patient consented. Anesthesia Topical anesthesia was used. Anesthetic medications included Lidocaine 2%, Proparacaine 0.5%. Procedure Preparation included 5% betadine to ocular surface, eyelid speculum. Injection: 2 mg aflibercept 2 MG/0.05ML Route: Intravitreal, Site: Left Eye [facility]: 46127-539-70, Lot: [id number], Expiration date: 03/27/2026, Waste: 0 mL Post-op Post injection exam [...] increased pain, redness, decreased vision or concerns. Exudative age-related macular 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 (CMS/HCC) - New finding of edema overlying PED on right eye (OD) today. Unsure if will be impacted with antiVEGF. Very mild amount. documented in this encounter [facility] 09-26-2024 Note Time Out 09/26/2024. 9:37 AM. Confirmed correct patient, procedure, site, and patient consented. Anesthesia Topical anesthesia was used. Anesthetic medications included Lidocaine 2%, Proparacaine 0.5%. Procedure Preparation included 5% betadine to ocular surface, eyelid speculum. Injection: 2 mg aflibercept 2 MG/0.05ML Route: Intravitreal, Site: Left Eye [facility]: 95325-821-93, Lot: [id number], Expiration date: 12/26/2025, Waste: 0 mL Post-op [...] increased pain, redness, decreased vision or concerns. [facility] 09-26-2024 Note Right Eye Quality was good. Scan locations included subfoveal. Progression has been stable. Findings include abnormal foveal contour, epiretinal membrane, intraretinal fluid, pigment epithelial detachment. Left Eye Quality was good. Scan locations included subfoveal. Progression has been stable. Findings include normal observations. Notes Good scan with normal appearance left eye (OS) [facility] 09-26-2024 History of Presen t illness [...] MG/0.05ML Route: Intravitreal, Site: Left Eye [place]: 09423-514-38, Lot: [id number], Expiration date: 12/26/2025, Waste: 0 mL Post-op [...] vision or concerns. documented in this encounter [facility] 07-25-2024 Note Time Out 07/25/2024. 2:58 PM. Confirmed correct patient, procedure, site, and patient consented. Anesthesia Topical anesthesia was used. Anesthetic medications included Lidocaine 2%, Proparacaine 0.5%. Procedure Preparation included 5% betadine to ocular surface, eyelid speculum. Injection: 2 mg aflibercept 2 MG/0.05ML Route: Intravitreal, Site: Left Eye [facility]: 93881-115-89, Lot: [id number], Expiration date: 08/27/2025, Waste: 0 mL Post-op [...] increased pain, redness, decreased vision or concerns. [facility] 07-25-2024 Note Right Eye Quality was good. Scan locations included subfoveal. Progression has been stable. Findings include abnormal foveal contour, pigment epithelial detachment. Left Eye Quality was good. Scan locations included subfoveal. Progression has been stable. Findings include abnormal foveal contour. [facility] 07-25-2024 History of Presen t illness Narrative Images from the original note were not included. Assessment/Plan Diagnoses and all orders for this visit: 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 eye with active choroidal neovascularization ([facility]) - OCT, Retina - OU - Both [...] 2 MG/0.05ML Route: Intravitreal, Site: Left Eye [facility]: 97191-159-14, Lot: [id number], Expiration date: 08/27/2025, Waste: 0 mL Post-op [...] vision or concerns. documented in this encounter [facility] 05-30-2024 Note Time Out 05/30/2024. 10:38 AM. Confirmed correct patient, procedure, site, and patient consented. Anesthesia Topical anesthesia was used. Anesthetic medications included Lidocaine 2%, Proparacaine 0.5%. Procedure Preparation included 5% betadine to ocular surface, eyelid speculum. Injection: 1.25 mg bevacizumab 100 MG/4ML Route: Intravitreal, Site: Left Eye [facility]: 29617-298-74, Lot: [id number], Expiration date: 08/14/2024, Waste: 0 mL Post-op [...] increased pain, redness, decreased vision or concerns. [facility] 05-30-2024 Note Right Eye Quality was good. Scan locations included subfoveal. Progression has improved. Findings include abnormal foveal contour, intraretinal fluid, pigment epithelial detachment. Left Eye Quality was good. Scan locations included subfoveal. Progression has been stable. Findings include abnormal foveal contour. [facility] 05-30-2024 History of Presen t illness Narrative Images from the original note were not included. Assessment/Plan Diagnoses and all orders for this visit: 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 eye with active choroidal neovascularization (HCC) ([facility]/HCC) - OCT, Retina - OU - [...] 100 MG/4ML Route: Intravitreal, Site: Left Eye [facility]: 72110-223-86, Lot: [id number], Expiration date: 08/14/2024, Waste: 0 mL Post-op [...] MG/ML solution prefilled syringe as directed Subcutaneous Gzykhhmcnqv-Xvithgwxerd-FGT (Xomwel-Rcfsb-VVA-Double Str) 500-400-167 MG tablet every 12 (twelve) [...] time each day at the same time [place]-3 Fatty Acids (Fish Oil) 1200 MG capsule [...] Normal Normal Refraction Wearing Rx Sphere Cylinder Preston Add Right +2.50 -2.00 077 +3.25 Left [...] laser capsulotomy, they are to notify their agile tester promptly if they have a significant change in symptoms, such as flashes of light (photopsia), an increase in floaters, loss of visual field or decrease in visual acuity. documented in this encounter [facility] 06-30-2023 Evaluation note Encounter Date Diagnosis Assessment Notes Jun, Acute non-recurrent maxillary sinusitis (ICD-10 - J01.00) Finish antibiotic, stay hydrated. Ok for NSAIDs for head pressure. Call if no improvement. [facility] 08-17-2023 NoteSUBJECTIVE: Chief complaint: Back and right leg pain. History of present illness: Consultation referred by pain management, Dr. Layton of [facility]. Patient reports chronic low back [...] found for any pre (more content not included)...[facility]08-17-2023 NoteSubjective: HPI: Letty Coffey is a [...] and assess x-rays of back. Malina Mckeon MS3[facility]07-18-2023 Evaluation note* Encounter Date Diagnosis Assessment [...] is busy with other appts right now. [facility] 06-22-2023 Evaluation note* Encounter Date Diagnosis [...] long as possible before considering surgical intervention. [facility] 05-04-2023 NoteCONSULTATION CONSULTATION DATE: 01/28/2023 TO: [...] our patients to inform us about any nvwa-pqp-ebaenqq medications or herbal remedies/nutritional supplements/alternative remedies. 2. [...] treatment options with their primary care provider.[facility] [id number] Evaluation note * Encounter Date Diagnosis Assessment Notes Treatment Notes Treatment Clinical Notes Dec, Essential (primary) hypertension (ICD-10 - I10) new problem. rx handwritten. f/u 6 weeks. Dec, Other chronic pain (ICD-10 - G89.29) Dec, Pain in left shoulder (ICD-10 - M25.512) PT order given to pt. [facility] 04-06-2023 NoteCONSULTATION CONSULTATION DATE: 12/31/2022 TO: [...] our patients to inform us about any dyjw-uko-enunipz medications or herbal remedies/nutritional supplements/alternative remedies. 2. [...] treatment options with their primary care provider.[facility] HospitalPgwfkqma30-79-3414 Note CONSULTATION PROCEDURE DATE: 10/07/2022 PREOPERATIVE DIAGNOSIS: [...] fan-like pattern. Patient tolerated the procedure well.[facility] [id number] NoteCONSULTATION CONSULTATION DATE: 10/07/2022 HISTORY OF PRESENT [...] sitting does decrease her pain. Medications include eolw-afn-imtaaor Tylenol and the use of Salonpas patches. [...] otherwise indicated. Patient agrees with this plan.[facility] [id number] NoteCONSULTATION CONSULTATION DATE: 07/30/2022 This is a [...] be followed up at the office thereafter.[facility] HospitalWtwoakmg07-34-0022 NoteCONSULTATION CONSULTATION DATE: 06/25/2022 HISTORY OF PRESENT [...] patient is in agreement with this plan.[facility] HospitalEcavzddm80-60-7937 NoteCONSULTATION CONSULTATION DATE: 05/19/2022 CHIEF COMPLAINT: Right [...] like to proceed. CC: Emely Thomas M.D.[facility] HospitalXfaihwsn07-88-6501 NoteCONSULTATION PROCEDURE DATE: 04/28/2022 PREOPERATIVE DIAGNOSIS: Right [...] Will be followed up in the office.[facility] [id number] NoteCONSULTATION CONSULTATION DATE: 04/28/2022 CHIEF COMPLAINT: Right [...] like to proceed. CC: Emely Thomas M.D.[facility] [id number] NotePROCEDURE: XR HIP RT 2 3V W PELVIS COMPARISON: None. HISTORY: Arthropathy FINDINGS: BONES:No acute fracture or dislocation. Mild osteoarthropathy with marginal osteophyte formation. 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 No visible soft tissue swelling. EFFUSION:None visible. OTHER: Negative. 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 Electronically authenticated by: YOUSUF ORTIZ Date: 2022-03-05 10:09[facility] HospitalEvaluation noteNo InformationWaconia [facility] Other evaluation note* Diagnosis 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 eye with active choroidal neovascularization (CMS/HCC)- Primary [facility] Diagnosis 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 eye with active choroidal neovascularization (HCC) (CMS/HCC)- Primary Right posterior capsular opacification Unspecified after-cataract [facility]* Diagnosis 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 eye with active choroidal neovascularization (CMS/HCC)- Primary documented in this encounter [facility] HealthcareEvaluation note* Diagnosis 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 eye with active choroidal neovascularization (CMS/HCC)- Primary Exudative age-related macular 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 (CMS/HCC) documented in this encounter [facility] HealthcareHistory general Narrative - Reported* Type Description [...] History COLONOSCOPY Hospitalization History SEE SURGICAL HX [facility] Other [facility] general Narrative - Reported* Type Description Date [...] growth surgery Hospitalization History SEE SURGICAL HX [facility] Other Summary Purpose Family History No Family [...] and content) DATE CREATED AUTHOR 03/23/2018 [facility] DATE CREATED AUTHOR AUTHOR'S ORGANIZ ATION 02/10/2023 [facility] DATE CREATED AUTHOR AUTHOR'S ORGANIZ ATION 05/19/2023 [facility] DATE CREATED AUTHOR AUTHOR'S ORGANIZ ATION 03/01/2025 [facility] EPIC DATE CREATED AUTHOR AUTHOR'S ORGANIZ ATION 03/05/[address] [facility] REASON FOR VISIT (unrecogniz ed section and content) Reason Comments Macular Degeneration Retinal Injection Reason Comments Follow-up Reason Comments Follow-up Retinal Injection Macular Degeneration Reason Comments Retinal Injection Care Teams (unrecognized sec tion and content) 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 Relationship Specialty Start Date End Date Wiley Price MD [address] [place] [address] [id number] PCP - General Family Medicine 12/10/23 Kimber Price MD [address] [place], [place] [phone] Referring Physician Family Medicine 10/15/23 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 Relationship Specialty Start Date End Date Wiley Price MD [address] [place] [address] [id number] PCP - General Family Medicine 12/10/23 Kimber Price MD [address] [place], [place] [phone] Referring Physician Family Medicine 10/15/23 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 Relationship Specialty Start Date End Date Wiley Price MD [address] [place] [address] PCP - General Family Medicine 12/10/23 Kimber Price MD [facility] [place] [address] Referring Physician Family Medicine 10/15/23 FOR RECORDS [...] BE BASED ON THE PRIMARY CLINICAL RECORDS. [employer] provides no warranty or guarantee of the accuracy or completeness of information in this document.
== END 2025-03-07 09:45 | disposition home or self-care (01) ==
LOC: PM 09:44
PROVIDERS: PCP Nurse Practitioner Family; Visit Provider Nurse Practitioner
DX: M48.062 Spinal stenosis, lumbar region with neurogenic claudication (principal); M46.1 Sacroiliitis, not elsewhere classified; M16.0 Bilateral primary osteoarthritis of hip; M19.012 Primary osteoarthritis, left shoulder; Z79.891 Long term (current) use of opiate analgesic; M25.512 Pain in left shoulder
CPT/HCPCS: G0463

== ENCOUNTER 2025-06-04 15:10 | Outpatient (OUT) | payer MEDICARE, OTHER, SELFPAY ==
--- OUTSIDE RECORDS SUMMARY | 2024-03-03 04:40 | XMS_ITS ---
Author Organization [facility] Address [address] [place] [address] Care Team Providers Care Electrician Research Name Role Phone Hakan Rossarpan Unavailable [phone] АлександрLiamSosa Unavailable [phone] Allergies No Known Allergies Reason For Referral Reason REFERRAL FOR SPINAL CORD STIMULATOR Diagnosis 1 Lumbar back pain (M5 4.50) Referral Organization [facility] Referring Provider First Name Larry Referring Provider Last Name [facility] Referring Provider Speciality Orthopedic Surgery Referred Organization OTHER Referred Provider MARIBELL LEPE General Notes Courtney Peguero 2023 09:50:56 AM >, Courtney Peguero 03/15/2024 08:55:06 AM >REFERRAL FAXEDMarielena Dawn 03/22/2024 12:54:57 PM >[place] [facility] 04/18/2024 09:29:01 AM >FAXED [...] Problem Status W/U Status Risk Notes Problem [id number] Spinal stenosis, lumbar region without neurogenic claudication (M48.061) Active confirmed Problem 385904006 Other forms of scoliosis, lumbar region (M41.86) Active confirmed Encounters Encounter Location Date Provider Diagnosis [facility] [address] [place] [address] [place] [address] 03/03/20[place] Spinal stenosis, lumbar region without neurogenic claudication [...] Date Lumbar spine, 4v flex ext - 16820 2023 Referrals Referral Date Details 03/03/2024 03/03/2024, REFERRAL FOR SPINAL CORD STIMULATOR, MORRIS LEPE Next Appt Details Follow Up: prn, Reason: Progress Notes * GAYATHRI LOPEZ MDOB:[birth year] (79 yo F)Acc No.[id number]:03/03/2024 Patient: GAYATHRI BAI Provider: COLETTE Gotti :1945 A ge:78 Y S ex:Female Date:03/03/2024 Address:[address] [place], [place] [id number] Subjective: * Chief Complaints: * 1 . Low Back Pain. * HPI: G eneral Follow Up Information: Dictated by Sosa Delgado PA-C Thank you for referring your patient to see Dr. Harden in surgical spine consultation at the [facility] [place] [facility] [place]. The patient is a 78-year-old female that [...] a second opinion. She has been seeing [place] pain management and had her last EDWIN [...] otor vehicle accident: N o. T hird green party responsibility: N o. W hat activities [...] L4 on 5. No fractures noted. . [facility] Imaging Studies: [facility] lumbar spine completed at the [facility] on 02/09/2023; impression: Very limited examination due [...] Electronic signature of Conrado Fountain PA-C on 06/04/2025 at 03:15 PM EDT Sign off status: Pending * Provider: COLETTE Gotti Date: 0 03/03/2024 Generated for Fabián bryan/Nino/Chikis on: 0 06/04/2025 03:15 PM EDT History and Physical Notes * HPI (History of Present Illness) Category Sub-Category Detail Notes Category Not es General Follow Up Information Dictated by Sosa Delgado PA-C Thank you for referring your patient to see Dr. Harden in surgical spine consultation at the [facility]. The patient is a 78-year-old female [...] a second opinion. She has been seeing [place] pain management and had her last EDWIN [...] right side) runs down my leg Third green party responsibility: No What activities make your symptoms worse ? Standing, Walking, lying on your back Which of the following treat ments have you tried? Anti-Inflammatory medications, Muscle, r elaxants, Narcotic pain medications, Hot packs, Physical Therapy treatment, injections Have you been seen by a [place] ist in the last year? Yes Do [...] Studies MRI lumbar spine completed at the [facility] on 02/09/2023; impression: Very limited examination due [...]
--- OUTSIDE RECORDS SUMMARY | 2024-08-11 08:32 | XMS_ITS ---
Author Organization [facility] [place] Address [address] [place] [address] Care Team Providers Care Behavioral Technician Name Role Phone Kimber Price Primary Care Provider REASON FOR VISIT test results Encounters Encounter Location Date Provider Diagnosis [facility] [address] [place] [address] 08/11/2024 Kimber Price Plan Of Treatment No Information Progress Notes * Letty COFFEY MDOB:[birth year] (79 yo F)Acc No.[id number]:08/11/2024 Patient: Bebeto COKERLetty :1945 A ge:79 Y S ex:Female Address:[address] [place] [id number] * true * Date: Generated for Judyi ng/Famanuelag/eTransmitting on: 0 06/04/2025 03:14 PM EDT
--- OUTSIDE RECORDS SUMMARY | 2024-11-13 05:00 | XMS_ITS ---
Author Organization [facility] [place] Address [address] [place] [address] Care Team Providers Care Good Humor Vendor Name Role Phone Kimber Price Primary Care Provider Allergies No Known Allergies REASON FOR VISIT lt hand and wrist pain off and on- over the past month, No known injury Medications Medication SIG (Take, Route, Frequency, Duration) Notes Start Date End Date Status Womens 50+ Multi Vitamin - as directed Orally Active Zonisamide 50 MG 3 cap Oral Q HS for 30 days Active Vitamin D 25 MCG (1000 UT) 1 tablet Orally Once a day Active Vitamin K2 100 MCG as directed Orally Active Diclofenac Sodium 75 MG 1 tablet as need ed Orally Twice a day for 14 days 11/13/2024 Active PreserVision AREDS 2 - 2 aday Orally Daily Active Prolia 60 MG/ML as directed Subcutaneous Active Losartan Potassium 25 MG TAKE 1 TABLET BY MOUTH EVERY DAY for 90 Active Magnesium Glycinate 100 MG 2 capsule Orally Daily Activ e Niacin 500 MG 1 tablet with food Orally Once a day Active Baclofen 10 MG TAKE 1 TABLET BY NASEEM TH Oral BID for 30 days Active Calcium 600 MG 1 tablet with meals Orally Once Active Fish Oil 1200 MG 1 capsule Orally bid Active Aspirin 81 81 MG 1 tablet Orally Once a day Active Zcjsrc-Wggyy-LNU-Double Str 500-400-167 MG 1 tablet Orally BID Ac tive predniSONE 20 MG 2 tablet Orally Once a day for 5 days 11/13/2024 Active traMADol HCl 50 MG 1 tablet as needed Orally Once a day PAIN CLINIC 11/13/2024 Active Social History Tobacco Use: Social History Observation Description Date Details (start date - stop date) Never Smoker NA - NA Tobacco Use/Smoking Question Answer Notes Patient is a nonsmoker Vital Signs Blood pressure systolic 152 mm Hg 11/13/19 25 Blood pressure diastolic 86 mm Hg 025 Height 61.5 in 11/13/2024 Weight 150.6 lbs 11/13/2024 BMI 27.99 kg/m2 11/13/2024 Encounters Encounter Location Date Provider Diagnosis [facility] [address] [place] [address] 11/13/2024 Kimber Price Left hand pain M79.642 Assessments Encounter Date Diagnosis (ICD Code) Assessment Notes Treatment Notes Treatment Clinical Notes Section Notes 11/13/2024 Left hand pain (ICD-10 - M79.642) likely arthritic flare try diclofenac, if not helping , try prednisone fu as needed discussed rheum referral, NCS Plan Of Treatment Medication Medication Name Sig Start Date Stop Date Notes Diclofenac Sodium 75 MG 1 tablet as need ed Orally Twice a day for 14 days 11/13/2024 predniSONE 20 MG 2 tablet Orally Once a day for 5 days 11/13/2024 Treatment Notes Assessment Notes Left hand pain likely arthritic flare try diclofenac, if not helping , try prednisone fu as needed discussed rheum referral, NCS Next Appt Details Follow Up: prn, Reason: Progress Notes * Letty COFFEY MDOB:[birth year] (79 yo F)Acc No.[id number]:11/13/2024 Progress Note Patient: Letty BAI Provider: Kirby Price ([facility]), WAREHOUSE TEAM MEMBER :1945 A ge:79 Y S ex:Female Date:11/13/2024 Address:[address] [place], [place] [id number] Check In:08:55 AM ESTCheck O ut:09:27 AM EST Subjective: * Chief Complaints: * 1 . Lt hand and wrist pain off and on- over the past month. 2. No known injury. * HPI: D epression Screening: PHQ-2 (2015 Edition) L ittle interest or pleasure in doing things??Not at all F eeling down, depressed, or hopeless? N ot at all T otal Score 0 left hand pain worse in am. G eneral: gets better as day goes on no known injury pain numbness and tingling too sees pain management. * ROS: G eneral/Constitutional: Fever d enies. H eadache d enies. W eight loss?denies. O phthalmologic: Discharge d enies. E ye Pain d enies. I tching and redness d enies. E NT: Nasal discharge d enies. N osvaldo congestion d enies.?Sore throat d enies. C ardiovascular: Chest tightness/ heavy pressure d enies. R apid heart rate d enies. S welling of extremities d enies. C hest pain d enies. ? R espiratory: Productive cough d enies. C hest pain d enies. C ough d enies. S hortness of breath d enies. W heezing d enies. ? G astrointestinal: Abdominal pain d enies. C onstipation d enies. D ecreased appetite d enies. D iarrhea d enies. N ausea d enies. V omiting?denies. G enitourinary: Urinary incontinence d enies. P ainful urination d enies. M usculoskeletal: Patient complaining of l eft hand pain has been waking her up at night worse in mornings. B ack pain d enies. N lance pain d enies. M uscle aches d enies. S kin: Rash d enies. S kin lesion(s) d enies. ? 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 * Surgical History: a ppendectomy , hysterectomy . * Hospitalization/Major Diagno stic Procedure: s ee above . * Family History: F ather: . M other: . B rother(s): alive. S ister(s): alive. S on(s): alive. D shyanne(s): alive. 1 brother(s) , 2 sister(s) - healthy. 1 son(s) , 4 daughter(s) . . * Social History: T obacco Use: T obacco Use/Smoking P atient is a n onsmoker * Medications: T aking Aspirin 81(Aspirin) 81 MG Tablet Delayed Release 1 tablet Orally Once a day , Taking Baclofen 10 MG Tablet TAKE 1 TABLET BY MOUTH Oral BID , Taking Calcium 600 MG Tablet 1 tablet with meals Orally Once , Taking Fish Oil 1200 MG Capsule Delayed Release 1 capsule Orally bid , Taking Rxbhao-Dpbfa-EDP-Double Str(Oikucnvqoor-Ltuhuzsblen-SLO) 500-400-167 MG Tablet 1 tablet Orally BID , Taking Losartan Potassium 25 MG Tablet TAKE 1 TABLET BY MOUTH EVERY DAY , Taking Magnesium Glycinate 100 MG Capsule 2 capsule Orally Daily , Taking Niacin 500 MG Tablet 1 tablet with food Orally Once a day , Taking PreserVision AREDS 2(Multiple Vitamins-Minerals) - Capsule 2 aday Orally Daily , Taking Prolia(Denosumab) 60 MG/ML Solution Prefilled Syringe as directed Subcutaneous , Taking traMADol HCl 50 MG Tablet 1 tablet as needed Orally Once a day , Notes to Pharmacist: PAIN CLINIC, Taking Vitamin D 25 MCG (1000 UT) Tablet 1 tablet Orally Once a day , Taking Vitamin K2 100 MCG Capsule as directed Orally , Taking Womens 50+ Multi Vitamin(Multiple Vitamins-Minerals) - Tablet as directed Orally , Taking Zonisamide 50 MG Capsule 3 cap Oral Q HS , Discontinued Amoxicillin-Pot Clavulanate 875-125 MG Tablet 1 tablet Orally every 12 hrs , Medication List reviewed and reconciled with the patient * Allergies: N .K.D.A. Objective: * Vitals: W t:150.6lbs, Ht: 61.5 in, BP:152/86mm Hg, BMI:27.99Index, Ht-cm: 156.21 cm, Wt- k.31 kg. * Examination: G eneral Examinations: GENERAL APPEARANCE: a lert and oriented, i n no acute distress. EYES: c onjunctiva normal, sclera non-icteric. NOSE: n ormal external appearance. LUNGS: c lear to auscultation bilaterally. CARDIO: r egular rate and rhythm, S1, S2 normal. MUSCULOSKELETAL: G ait and station normal left hand no swelling noted, no redness or warmth ROM WNL. SKIN: w arm and dry. Assessment: * Assessment: 1. L eft hand pain - M79.642 (Primary) Plan: * Treatment: * Preventive Medicine: Screenings/Counseling: B MT ACTION PLAN Above Normal BMI Follow-up D ietary management education, guidance, and counseling * Follow Up: p rn * * Electronically signed by Patrizia Price , OCTAVIA, [employer].WAREHOUSE TEAM MEMBER.[id number] on 11/14/2024 at 04:58 PM EST Sign off status: Completed Visit Status: C HK (Check Out) true * Provider: Kirby Price ([facility]), [employer] TE[employer] MEMBER Date: 0 11/13/2024 Generated for Fabián bryan/Nino/eTransmitting on: 0 06/04/2025 03:15 PM EDT History and Physical Notes * HPI (History of Present Illness) Category Sub-Category Detail Notes Category Not es General gets better as day goes on no known injury pain numbness and tingling too sees pain management Depression Screening PHQ-2 (2015 Edition) Little interest or pleasure in doing things?: Not at all left hand pain worse in am Feeling down, depressed, or hopeless?: N ot at all Total Score: 0 Examination Category Sub-Category Detail Notes Category Not es General Examinations GENERAL APPEARANCE: alert a nd oriented, in no acute distress EYES: conjunctiva normal, sclera non-icteric EARS: NOSE: normal external appe arance THROAT: CARDIO: regular rate and rhy thm, S1, S2 normal LUNGS: clear to auscultatio n bilaterally ABDOMEN: SKIN: warm and dry BACK: MUSCULOSKELETAL: Gait and station nor mal left hand no swelling noted, no redness or warmth ROM WNL LYMPH NODES:
--- OUTSIDE RECORDS SUMMARY | 2025-05-17 07:30 | XMS_ITS ---
Author Organization [facility] [place] Address [address] [place] [address] Care Team Providers Care Montessori Program Director Name Role Phone Kimber Price Primary Care Provider [phone] Allergies No Known Allergies Results Component Value Reference Range Notes UA (Urinalysis, Dipstix only - w/o micro) (Not yet reviewed by provider) Interpretation: Performing Lab: Notes/Report: COLOR yellow Yellow - Poly - CLARITY clear Clear - Clear GLUCOSE - 0 - 133 MG/DL ALBUMIN - NEG - NEG MG/DL BILIRUBIN - NEG - NEG MG/DL SPECIFIC GRAVITY 1.015 1.001 - 1.035 KETONES + NEG - NEG MG/DL BLOOD, UR - PH, UR 5.0 5 - 9 UROBILNOGEN - 0.2 - 1 MG/DL NITRITE + NEG - NEG ESTERASE (REGINA) + NEG - NEG MG/DL REASON FOR VISIT UTI- symptoms are urgency and frequency, appointment with obgyn next week for her prolapsed bladder Medications Medication SIG (Take, Route, Frequency, Duration) Notes Start Date End Date Status Aspirin 81 81 MG 1 tablet Orally Once a day Active Baclofen 10 MG TAKE 1 TABLET BY Oral BID for 30 days Active Cefdinir 300 MG one capsule Orally B ID for 10 days 05/17/2025 Active Diclofenac Sodium 75 MG 1 tablet as need ed Orally Twice a day for 14 days 11/13/2024 Active Calcium 600 MG 1 tablet with meals Orally Once Active traMADol HCl 50 MG 1 tablet as needed Orally Once a day PAIN [facility] 11/13/2024 Active Womens 50+ Multi Vitamin - as directed Orally Active Zonisamide 50 MG 3 cap Oral Q HS for 30 days Active Vitamin D 25 MCG (1000 UT) 1 tablet Orally Once a day Active Vitamin K2 100 MCG as directed Orally Active Magnesium Glycinate 100 MG 2 capsule Orally Daily Activ e Niacin 500 MG 1 tablet with food Orally Once a day Active PreserVision AREDS 2 - 2 aday Orally Daily Active Prolia 60 MG/ML as directed Subcutaneous Active Losartan Potassium 25 MG TAKE 1 TABLET BY MOUTH EVERY DAY for 90 days Active Fish Oil 1200 MG 1 capsule Orally bid Active Tuwqco-Ehcrt-CXG-Double Str 500-400-167 MG 1 tablet Orally BID Ac tive Social History Tobacco Use: Social History Observation Description Date Details (start date - stop date) Never Smoker NA - NA Tobacco Use/Smoking Question Answer Notes Patient is a nonsmoker AUDIT-C (Standard) Question Answer Notes Did you have a drink containing alcohol in the p ast year? No Points 0 Interpretation Negative Vital Signs Blood pressure systolic 144 mm Hg 05/17/20 25 Blood pressure diastolic 80 mm Hg 025 Height 61.5 in 05/17/2025 Weight 148.8 lbs 05/17/2025 BMI 27.66 kg/m2 05/17/2025 Encounters Encounter Location Date Provider Diagnosis [address] [place] [address] 05/17/2025 Kimber Price UTI symptoms R39.9 Assessments Encounter Date Diagnosis (ICD Code) Assessment Notes Treatment Notes Treatment Clinical Notes Section Notes 05/17/2025 UTI symptoms (ICD-10 - R39.9) defers UA CS right now if sx continue, notify office Wednesday will order UA CS Plan Of Treatment Medication Medication Name Sig Start Date Stop Date Notes Cefdinir 300 MG one capsule Orally BID for 10 days 025 Treatment Notes Assessment Notes UTI symptoms defers UA CS right now if sx continue, notify office Wednesday will order UA CS Pending Test Test Name Order Date UA (Urinalysis, Dipstix only - w/o micro ) 05/17/2025 Next Appt Details Follow Up: prn, Reason: Progress Notes * Letty COFFEY MDOB:[birth year] (79 yo F)Acc No.[id number]:05/17/2025 Progress Note Patient: Letty BAI Provider: Kirby Price ([facility]), PIGMENT PRESSER :1945 A ge:79 Y S ex:Female Date:05/17/2025 Address:[address] [place], [place] [id number] Check In:11:16 AM ESTCheck O ut:11:35 AM EST Subjective: * Chief Complaints: * 1 . UTI- symptoms are urgency and frequency. 2. Appointment with obgyn next week for her prolapsed bladder. * HPI: G eneral: last couple days urgency, voiding small amts hurts when urinates hx prolapsed bladder. * ROS: G eneral/Constitutional: Fever d enies. [...] incontinence d enies. P ainful urination d iscomfort, small amts, frequency. M usculoskeletal: Back pain d enies. N lance pain d enies. M uscle aches d enies. S kin: Rash d enies. S kin lesion(s) d enies. ? 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 N o P oints 0 I nterpretation N egative * Medications: T aking Aspirin 81(Aspirin) 81 MG Tablet Delayed Release 1 tablet Orally Once a day , Taking Baclofen 10 MG Tablet TAKE 1 TABLET BY MOUTH Oral BID , Taking Calcium 600 MG Tablet 1 tablet with meals Orally Once , Taking Diclofenac Sodium 75 MG Tablet Delayed Release 1 tablet as needed Orally Twice a day , Taking Fish Oil 1200 MG Capsule Delayed Release 1 capsule Orally bid , Taking Fopzqc-Uqfpb-WPM-Double Str(Fydatfixzpy-Nosvtgmbdkb-MQU) 500-400-167 MG Tablet 1 tablet Orally BID [...] Capsule 3 cap Oral Q HS , Medication List reviewed and reconciled with the patient * Allergies: N .K.D.A. Objective: * Vitals: W t:148.8lbs, Ht: 61.5 in, BP:144/80mm Hg, BMI:27.66Index, Ht-cm: 156.21 cm, Wt- k.5 kg. * Examination: G eneral Examinations: GENERAL APPEARANCE: a lert and oriented, i n no acute distress. EYES: c onjunctiva normal, sclera non-icteric. NOSE: n ormal external appearance. LUNGS: c lear to auscultation bilaterally. CARDIO: r egular rate and rhythm, S1, S2 normal. MUSCULOSKELETAL: G ait and station normal. SKIN: w arm and dry. Assessment: * Assessment: 1. U TI symptoms - R39.9 (Primary) Plan: * Treatment: * Labs: * L ab: UA (Urinalysis, Dipstix only - w/o micro) (Collection Date & Time - 05/17/2025) Value Reference Range C OLOR yellow Yellow - Poly - * C LARITY clear Clear - Clear * G LUCOSE - 0 - 133 MG/DL * A LBUMIN - NEG - NEG MG/DL * B ILIRUBIN - NEG - NEG MG/DL * S PECIFIC GRAVITY 1.015 1.001 - 1.035 * K ETONES + NEG - NEG MG/DL * B LOOD, UR - * P H, UR 5.0 5 - 9 * U ROBILNOGEN - 0.2 - 1 MG/DL * N ITRITE + NEG - NEG * E STERASE (REGINA) + NEG - NEG MG/DL * Procedure Codes: 8 1002 URINALYSIS WO MICRO * Preventive Medicine: Screenings/Counseling: B VA ACTION PLAN Above Normal BMI Follow-up D ietary management education, guidance, and counseling F ALL RISK SCREENING Fall Risk Assessment: N o falls in the past year * Follow Up: p rn * * Electronically signed by Patrizia Price , TRANSPORTATION ENGINEERING TECHNICIAN, LABORATORY ASST.PIGMENT PRESSER.[id number] on 05/21/2025 at 08:16 AM EDT Sign off status: Completed Visit Status: C HK (Check Out) true * Provider: Kirby Price ([facility]), PIGMENT PRESSER Date: 0 05/17/2025 Generated for Fabián bryan/Nino/Stivenitting on: 0 06/04/2025 03:15 PM EDT History and Physical Notes * HPI (History of Present Illness) Category Sub-Category Detail Notes Category Not es General last couple days urgency, voiding small amts hurts when urinates hx prolapsed bladder Examination Category Sub-Category Detail Notes Category Not es General Examinations GENERAL APPEARANCE: alert a nd oriented, in no acute distress EYES: conjunctiva normal, sclera non-icteric EARS: NOSE: normal external appe arance THROAT: CARDIO: regular rate and rhy thm, S1, S2 normal LUNGS: clear to auscultatio n bilaterally ABDOMEN: SKIN: warm and dry BACK: MUSCULOSKELETAL: Gait and station nor mal LYMPH NODES:
--- OUTSIDE RECORDS SUMMARY | 2025-05-17 12:07 | XMS_ITS ---
Author Organization [facility] in [place] Address [address] [place] [address] Care Team Providers Care Head Mechanic Name Role Phone Kimber Price Primary Care Provider REASON FOR VISIT atb Medications Medication SIG (Take, Route, Fr equency, Duration) Notes Start Date End Date Status Cefdinir 300 MG one capsule Orally BID for 10 days 05/17/2025 Active Encounters Encounter Location Date Provider Diagnosis [address] [address] 05/17/2025 Kimber Price UTI symptoms R39.9 Assessments Encounter Date Diagnosis (ICD Code) Assessment Notes Treatment Notes Treatment Clinical Notes Section Notes 05/17/2025 UTI symptoms (ICD-10 - R39.9) Plan Of Treatment Medication Medication Name Sig Start Date Stop Date Notes Cefdinir 300 MG one capsule Orally BID for 10 days 025 Progress Notes * Letty COFFEY MDOB:[birth year] (79 yo F)Acc No.[id number]:05/17/2025 Patient: Letty BAI :1945 A ge:79 Y S ex:Female Address:[address] [place] [phone] * Refills Refill Cefdinir Capsule, 300 MG, Orally, 20, one capsule, BID, 10 days, Refills=0 * true * Date: Generated for Fabián bryan/Nino/Chikis on: 0 06/04/2025 03:14 PM EDT
--- OUTSIDE RECORDS SUMMARY | 2025-05-23 08:30 | XMS_ITS | Encounter Summary ---
Author Organization [facility] Address [address] [place] [address] Care Team Providers Care Real Estate Listing Consultant Name Role Phone Kimber Price MD Unavailable [phone] Wiley Price MD Primary Care Provider [phone] Reason for Visit * Reason Comments Retinal Injection Macular Degeneration Encounter Details Date Type Department Care Team (Latest Contact Info) Description 05/23/2025 8:30 AM EDT Clinical Support [facility] [address] [place] [id number] Bakari Nassar DO [address] [place] [address] Retinal Injection; Macular Degeneration Social History Tobacco Use Types Packs/Day Years Used Date Smoking Tobacco: Never Smokeless Tobacco: Never Comments Unknown Sex and Gender Information Value Date Recorded Sex Assigned at Not on file Legal Sex Female 8:35 PM EDT Gender Identity Not on file Sexual Orientation Not on file documented as of this encounter Progress Notes * Bakari Nassar DO - 05/23/2025 8:30 AM EDT Images from the original note were not included. Assessment/Plan Diagnoses and all orders for this visit: 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 eye with active choroidal neovascularization (HCC) - OCT, Retina - OU - Both Eyes - Intravitreal Injection, Pharmacologic Agent - OS - Left Eye - aflibercept (Eylea) syringe 2 mg OCT, Retina - OU - Both Eyes Right Eye Quality was good. Scan locations included subfoveal. Progression has improved. Findings include abnormal foveal contour, epiretinal membrane, pigment epithelial detachment. Left Eye Quality was good. Scan locations included subfoveal. Progression has been stable. Findings include normal observations. Notes Good scan with normal appearance left eye (OS) Linked Images Intravitreal Injection, Pharmacologic Agent - OS - Left Eye Time Out 05/23/2025. 9:11 AM. Confirmed correct patient, procedure, site, and patient consented. Anesthesia Topical anesthesia was used. Anesthetic medications included Lidocaine 2%, Proparacaine 0.5%. Procedure Preparation included 5% betadine to ocular surface, eyelid speculum. Injection: 2 mg aflibercept 2 MG/0.05ML Route: Intravitreal, Site: Left Eye [facility]: 60628-336-09, Lot: [id number], Expiration date: 06/27/2026, Waste: 0 mL Post-op Post injection exam [...] With intraocular surgery, there is potential for directretinal damage through retinal or RPE tear, or infection, with subsequent vision loss. Informative Intravitreal pamphlet provided as well as an OMIC consent. Of course, the treatment may fail to accomplish the overall therapeutic objectives, which is to stall or decrease the amount of retinal edema/ bleeding, and therefore stall or improve vision loss. Intravitreal Anti-VEGF: Consent was obtained and questions answered. Operative eye was identified, receiving topical proparacaine, 5% betadine, and 2% xylocaine jelly. A lid speculum was placed and the inferotemp. injection site received additional anesthetic with a proparacaine soaked cotton swab.Using calipers (set at 3.5mm for pseudo and 4mm for phakic), the inferotemp. limbus was measured, sclera marked and 2 additional drops of betadine placed. Avoiding any talking to avoid contamination,intravitreal injection was carried out without difficulty. Any residual amount of medication was discarded appropriately. The patient tolerated the procedure well and instructed to call with increased pain, redness, decreased vision or concerns. documented in this encounter Plan of Treatment Upcoming Encounters Date Type Department Care Team (Late st Contact Info) Description 07/04/2025 11:15 AM EDT Clinical Support [facility] [address] [place] [address] Bakari Nassar, DO [address] [place] [address] 06/05/2026 10:15 AM EDT Office Visit [facility] [address] [place] [phone] Kriss Velez, DO [address] [place] [address] documented as of this encounter Procedures Procedure Name Priority Date/Time Associated Diagnosis Comments INTRAVITREAL INJECTION, PHARMACOLOGIC AGENT - OS - LEFT EYE Routine 05/23/2025 9:11 AM EDT 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 eye with active choroidal neovascularization (HCC) OCT, RETINA - OU - BOTH EYES Routine 05/23/2025 9:07 AM EDT 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 eye with active choroidal neovascularization (HCC) documented in this encounter Results * Intravitreal Injection, Pharmacologic Agent - OS - Left Eye (05/23/2025 9:11 AM EDT) Anatomical Region Laterality Modality Head Other Narrative 05/23/2025 9:11 AM EDT Time Out 05/23/2025. 9:11 AM. Confirmed correct patient, procedure, site, and patient consented. Anesthesia Topical anesthesia was used. Anesthetic medications included Lidocaine 2%, Proparacaine 0.5%. Procedure Preparation included 5% betadine to ocular surface, eyelid speculum. Injection: 2 mg aflibercept 2 MG/0.05ML Route: Intravitreal, Site: Left Eye [facility]: 89917-897-95, Lot: [id number], Expiration date: 06/27/2026, Waste: 0 mL Post-op Post injection exam [...] OCT, Retina - OU - Both Eyes (05/23/2025 9:07 AM EDT) Anatomical Region Laterality Modality Head Optical Coherenc e Tomography Narrative 05/23/2025 9:07 AM EDT Right Eye Quality was good. Scan locations included subfoveal. Progression has improved. Findings include abnormal foveal contour, epiretinal membrane, pigment epithelial detachment. Left Eye Quality was good. Scan locations included subfoveal. Progression has been stable. Findings include normal observations. Notes Good scan with normal appearance left eye (OS) Bakari Nassar DO OPHTH TOMOGRAPHY Edited Res ult - Final documented in this encounter Visit Diagnoses Diagnosis 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 eye with active choroidal neovascularization (HCC)- Primary documented in this encounter Administered Medications Inactive Administered Medications - up to 3 most recent administrations Medication Order MAR Action Action Date Dose Rate Site aflibercept (Eylea) syringe 2 mg 2 mg, Intravitreal, Once PRN Procedure, Starting on Wed05/23/25 at 0911, For 1 doseIndications: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 eye with active choroidal neovascularization (HCC) Given 05/23/2025 9:11 AM EDT 2 mg Left Eye documented in this encounter Care Teams Real Estate Listing Consultant Relationship Specialty Start Date End Date Wiley Price MD [address] [place], [place] [phone] PCP - General Family Medicine 12/10/23 Kimber Price MD [address] [place] [address] Referring Physician Family Medicine 10/15/23 documented as of this encounter
--- OUTSIDE RECORDS SUMMARY | 2025-05-24 10:00 | XMS_ITS | Encounter Summary ---
Author Organization [facility] Address [address] [place] [place] [address] Care Team Providers Care Riveter [employer] Brakes Name Role Phone Kimber Price MD Unavailable [phone] Wiley Price MD Primary Care Provider [phone] Reason for Visit * Reason Comments Gynecologic Exam Denies concerns. Pt states currently on antibiotic for UTI. Denies breast concerns. Denies vaginal bleeding/spotting. Encounter Details Date Type Department Care Team (Late st Contact Info) Description 05/24/2025 10:00 AM EDT Office Visit SARAH GARCIA [address] [place] [address] Kriss Velez DO [address] [place] [address] Vaginal atrophy (Primary Dx); Encounter for screening mammogram for breast cancer; Cystocele, midline Social History Tobacco Use Types Packs/Day Years Used Date Smoking Tobacco: Never Smokeless Tobacco: Never Comments Unknown Sex and Gender Information Value Date Recorded Sex Assigned at Not on file Legal Sex Female 8:35 PM EDT Gender Identity Not on file Sexual Orientation Not on file documented as of this encounter Last Filed Vital Signs Vital Sign Reading Time Taken Comments Blood Pressure 120/70 05/24/2025 10:16 AM EDT Pulse - - Temperature - - Respiratory Rate - - Oxygen Saturation - - Inhaled Oxygen Concentration - - Weight 68 kg (150 lb) 05/24/2025 10:16 AM EDT Height - - Body Mass Index - - documented in this encounter Progress Notes * Kriss Velez DO - 05/24/2025 10:00 AM EDT Images from the original note were not included. Kriss Velez D.O. Obstetrics and Gynecology Patient: Letty Coffey : 1945 (79 y.o.) Yearly Wellness Exam Date: 05/24/2025 Reason for Visit - Chief Complaint Patient presents with Gynecologic Exam Denies concerns. Pt states currently on antibiotic for UTI. Denies breast concerns. Denies vaginal bleeding/spotting. Visit Vitals BP 120/70 Wt 150 lb Smoking Status Never No Known Allergies History of Present Illness, Associated Treatments and Results - OB History Para Term AB Living 6 5 5 0 1 5 SAB IAB Ectopic Multiple Live Births 0 0 0 0 5 # Outcome Date GA Lbr Srinath/2nd Weight Sex Type Anes PTL Lv 6 Term 5 Term 4 Term 3 Term 2 Term 1 AB Obstetric Comments Pap smear 05/10/24 wnl Mammogram 08/11/24 wn @ [facility] Review of Systems - General: Chills denies. Allergy/Immunology: Rash Denies. ENT: Denies Difficulty swallowing. Endocrine: Denies Cold intolerance denies. Heat intolerance denied. Respiratory: Denies Chest pain denies. Shortness of breath denies. Breast: Denies Bloody nipple discharge denies. Breast lump denies. Cardiovascular: Denies Chest pain. Gastrointestinal: Abdominal pain denies. Blood in stool denies. Hematology: Easy bruising denies. Prolonged bleeding denies. Women Only: Breast lump denies. Vaginal bleeding between periods is denied. Vaginal discharge/itching denied. Genitourinary: Blood in urine denies. Painful urination denies. Incontinence denies. Skin: Hair changes. Neurologic: Seizures denied. Stroke denies. Psychiatric: Anxiety denies. Depressed mood denies. Medication Documentation Review Audit Reviewed by Elizabeth Santiago MA (Research Laboratory Manager) on 05/24/25 at 1015 Medication Order Taking? Sig Documenting Provider Last Dose Status aspirin 81 MG EC tablet [id number] 1 (one) time each day at the same time Bakari Nassar, DO Active baclofen (Lioresal) 10 MG tablet [id number] every 12 (twelve) hours Bakari Nassar, DO Active calcium carbonate (Super Calcium) 1500 (600 Ca) MG tablet [id number] 1 tablet with meals Orally Once Bakari Nassar, DO Active cefdinir (Omnicef) 300 MG capsule [id number] Take 300 mg by mouth in the morning and 300 mg before bedtime. Bakari Nassar DO Active cholecalciferol (Vitamin D3) 25 MCG (1000 UT) tablet [id number] 1 (one) time each day at the same time Bakari Nassar DO Active denosumab (Prolia) 60 MG/ML solution prefilled syringe [id number] as directed Subcutaneous Bakari Merida DO Active Lnwmitwcnrk-Ahmzmjclnoc-NZH (Yajfnb-Kvdzo-DFT-Double Str) 500-400-167 MG tablet [id number] every 12 (twelve) hours Bakari Nassar DO Active losartan (Cozaar) 25 MG tablet [id number] Oral for 90 Days Bakari Nassar DO Active Magnesium Glycinate 100 MG capsule [id number] 2 capsules 1 (one) time each day at the same time Bakari Nassar DO Active Menaquinone-7 (Vitamin K2) 100 MCG capsule [id number] as directed Orally Bakari Nassar DO Active Multiple Vitamins-Minerals (PreserVision AREDS 2) capsule [id number] 1 (one) time each day at the same time Bakari Nassar DO Active Multiple Vitamins-Minerals (Womens 50+ Multi Vitamin) tablet [id number] as directed Orally Bakari Merida DO Active niacin 500 MG tablet [id number] 1 (one) time each day at the same time Bakari Nassar DO Active [place]-3 Fatty Acids (Fish Oil) 1200 MG capsule delayed-release [id number] 1 capsule every 12 (twelve)hours Bakari Nassar DO Active traMADol (Ultram) 50 MG tablet [id number] TAKE 1 TABLET BY MOUTH TWICE A DAY NEEDED FOR PAIN MUST LAST 30 DAYS Bakari Nassar DO Active zonisamide (Zonegran) 50 MG capsule [id number] TAKE 3 CAPSULES BY MOUTH EVERY DAY AT BEDTIME Steffany Nassar DO Active Past Medical History: Diagnosis Date Arthritis Cataract Hypertension Macular degeneration Past Surgical History: Procedure Laterality Date CATARACT EXTRACTION COLONOSCOPY HYSTERECTOMY Family History Problem Relation Name Age of Onset Hypertension Mother Cataracts Mother Cancer Father Thyroid disease Sister Diabetes Sister Physical Exam - General appearance, mentation, extraocular movements, facial strength and movement, hearing, upper and lower extremity strength and tone, sensation to gross testing, coordination, and gait are normalor at baseline unless noted below. General Examination: GENERAL APPEARANCE: alert oriented well developed, well nourished. HEAD: normocephalic atraumatic. EYES: sclera anicteric. EARS: no obvious hearing deficit. SKIN: warm and dry. HEART: regular rate and rhythm. LUNGS: clear to auscultation bilaterally. CHEST: axillary nodes grossly normal. BREASTS: no masses palpable bilaterally, normal nipples bilaterally. ABDOMEN: soft, nontender, nondistended, no masses palpable. BACK: no costovertebral angle tenderness, no obvious scoliosis/kyphosis. FEMALE GENITOURINARY: atrophic vaginal mucosa, cervix/uterus surgically absent, cystocele grade 2-3 EXTREMITIES: no edema. NEUROLOGIC: alert and oriented. PSYCH: cooperative with exam. Diagnoses and all orders for this visit: Vaginal atrophy Encounter for screening mammogram for breast cancer - Bilateral screening mammogram with tomosynthesis Cystocele, midline Pelvic and breast exam completed. Findings of today's exam discussed with the patient. Continue MSBE. Ca/Vit D recommendations reviewed with the patient. The patient is to contact the office with anychanges to her gynecological condition. The patient is to return in 1 year or as needed Discussed cystocele and modify activity, decrease heavy lifting. If becomes persistently bothersome, patient to call to further discuss management options. ICD-10-CM 1. Vaginal atrophy N95.2 2. Encounter for screening mammogram for breast cancer Z12.31 Bilateral screening mammogram with tomosynthesis 3. Cystocele, midline N81.11 documented in this encounter Plan of Treatment Upcoming Encounters Date Type Department Care Team (Late st Contact Info) Description 07/04/2025 11:15 AM EDT Clinical Support [facility] [address] [place] [phone] Bakari Nassar DO [address] [place] [address] 06/05/2026 10:15 AM EDT Office Visit [facility] [address] [place] [address] Kriss Velez DO [address] [place] [address] Scheduled Orders Name Type Priority Associated Diagnoses Orde r Schedule Bilateral screening mammogram with tomosynthesis Imaging Routine Encounter for screening mammogram for breast cancer Ordered: 05/24/2025 documented as of this encounter Visit Diagnoses Diagnosis Vaginal atrophy- Primary Postmenopausal atrophic vaginitis Encounter for screening mammogram for breast cancer Cystocele, midline documented in this encounter Care Teams [employer] Relationship Specialty Start Date End Date Wiley Price MD [address] [place] [address] PCP - General Family Medicine 12/10/23 Kimber Price MD [address] [place] [address] Referring Physician Family Medicine 10/15/23 documented as of this encounter
--- OUTSIDE RECORDS SUMMARY | 2025-05-30 08:45 | XMS_ITS | Encounter Summary ---
Author Organization [facility] Address [address] [place] [address] Care Team Providers Care Assembler Dc [employer] Yoke Name Role Phone Kimber Price MD Unavailable [phone] Wiley Price MD Primary Care Provider [phone] Reason for Visit * Reason Comments Follow-up Retinal Injection Encounter Details Date Type Department Care Team (Late st Contact Info) Description 05/30/2025 8:45 AM EDT Clinical Support [facility] [address] [place] [id number] Bakari Nassar DO [address] [place] [address] Follow-up; Retinal Injection Social History Tobacco Use Types Packs/Day Years Used Date Smoking Tobacco: Never Smokeless Tobacco: Never Comments Unknown Sex and Gender Information Value Date Recorded Sex Assigned at Not on file Legal Sex Female 8:35 PM EDT Gender Identity Not on file Sexual Orientation Not on file documented as of this encounter Progress Notes * Bakari Nassar DO - 05/30/2025 8:45 AM EDT Images from the original note were not included. Assessment/Plan Diagnoses and all orders for this visit: Exudative age-related macular 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 (HCC) - Intravitreal Injection, Pharmacologic Agent - OD - Right Eye - aflibercept (Eylea) syringe 2 mg Intravitreal Injection, Pharmacologic Agent - OD - Right Eye Time Out 05/30/2025. 9:12 AM. Confirmed correct patient, procedure, site, and patient consented. Anesthesia Topical anesthesia was used. Anesthetic medications included Lidocaine 2%, Proparacaine 0.5%. Procedure Preparation included 5% betadine to ocular surface, eyelid speculum. A 30 gauge needle was used. Injection: 2 mg aflibercept 2 MG/0.05ML Route: Intravitreal, Site: Right Eye [facility]: 15566-293-90, Lot: [id number], Expiration date: 06/27/2026, Waste: 0 mL Post-op [...] 07/04/2025 11:15 AM EDT Clinical Support [facility] [address] [place] [address] Bakari Nassar DO [address] [place] [address] 06/05/2026 10:15 AM EDT Office Visit [facility] G[facility] [address] [place] [address] JewellKriss dumont DO [address] [place] [address] documented as of this encounter Procedures Procedure Name Priority Date/Time Associated Diagnosis Comments INTRAVITREAL INJECTION, PHARMACOLOGIC AGENT - OD - RIGHT EYE Routine 05/30/2025 9:12 AM EDT Exudative age-related macular 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 (HCC) documented in this encounter Results * Intravitreal Injection, Pharmacologic Agent - OD - Right Eye (05/30/2025 9:12 AM EDT) Anatomical Region Laterality Modality Head Other Narrative 05/30/2025 9:12 AM EDT Time Out 05/30/2025. 9:12 AM. Confirmed correct patient, procedure, site, and patient consented. Anesthesia Topical anesthesia was used. Anesthetic medications included Lidocaine 2%, Proparacaine 0.5%. Procedure Preparation included 5% betadine to ocular surface, eyelid speculum. A 30 gauge needle was used. Injection: 2 mg aflibercept 2 MG/0.05ML Route: Intravitreal, Site: Right Eye [facility]: 31476-380-02, Lot: [id number], Expiration date: 06/27/2026, Waste: 0 mL Post-op [...] decreased vision or concerns. Bakari Nassar DO OPH CLINIC PROCEDURES Fin al Result documented in this encounter Visit Diagnoses Diagnosis Exudative age-related macular 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 (HCC)- Primary documented in this encounter Administered Medications Inactive Administered Medications - up to 3 most recent administrations Medication Order MAR Action Action Date Dose Rate Site aflibercept (Eylea) syringe 2 mg 2 mg, Intravitreal, Once PRN Procedure, Starting on Wed05/30/25 at 0912, For 1 doseIndications:Exudative age-related macular 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 (HCC) Given 05/30/2025 9:12 AM EDT 2 mg Right Eye documented in this encounter Care Teams Assembler Dc [employer] Yoke Relationship Specialty Start Date End Date Wiley Price MD [address] [place] [id number] PCP - General Family Medicine 12/10/23 Kimber Price MD [address] [place] [address] Referring Physician Family Medicine 10/15/23 documented as of this encounter
--- OUTSIDE RECORDS SUMMARY | 2025-06-04 11:00 | XMS_ITS ---
Author Organization [facility] [place] Address [address] [place] [address] Care Team Providers Care Manager Store Name Role Phone Kimber Price Primary Care Provider Allergies No Known Allergies REASON FOR VISIT UTI- was just recently on ATB, finished those and then symptoms started back- urinary frequency butlittle output Medications Medication SIG (Take, Route, Frequency, Duration) Notes Start Date End Date Status Womens 50+ Multi Vitamin - as directed Orally Active Vitamin K2 100 MCG as directed Orally Active Vitamin D 25 MCG (1000 UT) 1 tablet Orally Once a day Active traMADol HCl 50 MG 1 tablet as needed Orally Once a day PAIN CLINIC 11/13/2024 Active Zonisamide 50 MG 3 cap Oral Q HS for 30 days Active Prolia 60 MG/ML as directed Subcutaneous Active PreserVision AREDS 2 - 2 aday Orally Daily Active Niacin 500 MG 1 tablet with food Orally Once a day Active Magnesium Glycinate 100 MG 2 capsule Orally Daily Activ e Losartan Potassium 25 MG TAKE 1 TABLET BY MOUTH EVERY DAY for 90 days Active Diclofenac Sodium 75 MG 1 tablet as need ed Orally Twice a day for 14 days 11/13/2024 Active Calcium 600 MG 1 tablet with meals Orally Once Active Qcmiwh-Vmcqh-JYP-Double Str 500-400-167 MG 1 tablet Orally BID Ac tive Fish Oil 1200 MG 1 capsule Orally bid Active Aspirin 81 81 MG 1 tablet Orally Once a day Active Baclofen 10 MG TAKE 1 TABLET BY NASEEM TH Oral BID for 30 days Active Social History Tobacco Use: Social History Observation Description Date Details (start date - stop date) Never Smoker NA - NA Tobacco Use/Smoking Question Answer Notes Patient is a nonsmoker Vital Signs Blood pressure systolic 122 mm Hg 06/04/20 25 Blood pressure diastolic 60 mm Hg 025 Height 61.5 in 06/04/2025 Weight 150.4 lbs 06/04/2025 BMI 27.95 kg/m2 06/04/2025 Encounters Encounter Location Date Provider Diagnosis [facility] [address] [place] [address] 06/04/2025 Kimber Price Dysuria R30.0 Assessments Encounter Date Diagnosis (ICD Code) Assessment Notes Treatment Notes Treatment Clinical Notes Section Notes 06/04/2025 Dysuria (ICD-10 - R30.0) Plan Of Treatment Pending Test Test Name Order Date UA (URINALYSIS, COMPLETE) 06/04/2025 Urine Culture 06/04/2025 Next Appt Details Follow Up: prn, Reason: Progress Notes * Letty COFFEY MDOB:[birth year] (79 yo F)Acc No.[id number]:06/04/2025 UNLOCKED PROGRESS NOTE Progress Note Patient: Letty BAI Provider: Kirby Price ([facility]), TESTER ELECTRONIC SCALE :1945 A ge:79 Y S ex:Female Date:06/04/2025 Address:[address] [place], [place] [address] Check In:02:49 PM EST Subjective: * Chief Complaints: * 1 . UTI- was just recently on ATB, finished those and then symptoms started back- urinary frequency but little output. * HPI: G eneral: frequency and small amts some dysuria sx cleared on Cefdinir but came back catrina obgyarpan, not too concerned about bladder prolapse said can refer if wants. * ROS: G eneral/Constitutional: Fever d enies. [...] Urinary incontinence d enies. P ainful urination a dmits and frequency, small amts. M usculoskeletal: Back pain d enies. N lance pain d enies. M uscle aches d enies. S kin: Rash d enies. S kin lesion(s) d enies. ? * Medical History: H ypertension, Osteoporosis, Low [...] Release 1 capsule Orally bid , Taking Eqrgte-Dxcel-MTQ-Double Str(Rrmwalsogzf-Nslfqpmmwva-JWA) 500-400-167 MG Tablet 1 tablet Orally BID [...] 3 cap Oral Q HS , Discontinued Cefdinir 300 MG Capsule one capsule Orally BID , Medication List reviewed and reconciled with the patient * Allergies: N .K.D.A. Objective: * Vitals: W t:150.4lbs, Ht: 61.5 in, BP:122/60mm Hg, BMI:27.95Index, Ht-cm: 156.21 cm, Wt- k.22 kg. * Examination: G eneral Examinations: GENERAL APPEARANCE: a lert and oriented, i n no acute distress. EYES: c onjunctiva normal, sclera non-icteric. NOSE: n ormal external appearance. LUNGS: c lear to auscultation bilaterally. CARDIO: r egular rate and rhythm, S1, S2 normal. ABDOMEN: s oft, nontender. MUSCULOSKELETAL: G ait and station normal. SKIN: w arm and dry. Assessment: * Assessment: 1. D ysuria - R30.0 (Primary) Plan: * Treatment: * Procedure Codes: 3 078F DIAST BP < 80 MM HG, 3074F SYST BP LT 130 MM HG * Preventive Medicine: Screenings/Counseling: B FL ACTION PLAN Above Normal BMI Follow-up D ietary management education, guidance, and counseling * Follow Up: p rn * * Electronic signature of Marcela Garibay NP, UNDERGROUND CONDUIT [email or web address] on 06/04/2025 at 03:15 PM EDT Sign off status: Pending Visit Status: A RR (Check-In) * Provider: Kirby Price ([facility]), TESTER ELECTRONIC SCALE Date: 06/04/2025 Generated for Fabián bryan/Nino/eTransmitting on: 06/04/2025 03:15 PM EDT History and Physical Notes * HPI (History of Present Illness) Category Sub-Category Detail Notes Category Not es General frequency and small amts some dysuria sx cleared on Cefdinir but came back catrina gordon, not too concerned about bladder prolapse said can refer if wants Examination Category Sub-Category Detail Notes Category Not es General Examinations GENERAL APPEARANCE: alert a nd oriented, in no acute distress EYES: conjunctiva normal, sclera non-icteric EARS: NOSE: normal external appe arance THROAT: CARDIO: regular rate and rhy thm, S1, S2 normal LUNGS: clear to auscultatio n bilaterally ABDOMEN: soft, nontender SKIN: warm and dry BACK: MUSCULOSKELETAL: Gait and station nor mal LYMPH NODES:
--- OUTSIDE RECORDS SUMMARY | 2025-06-04 15:14 | XMS_ITS | Encounter Summary ---
Author Organization [facility] Address [address] [place] [address] Care Team Providers Care Cashiers Supervisor Name Role Phone Kimber Price MD Unavailable Wiley Price MD Primary Care Provider Encounter Details Date Type Department Care Team (Latest Contact Info) Description 05/30/2025 Travel Social History Tobacco Use Types Packs/Day Years [...] 07/04/2025 11:15 AM EDT Clinical Support [facility] [address] [place] [address] Bakari Nassar, DO [address] [place] [address] 06/05/2026 10:15 AM EDT Office Visit [facility]OM[facility] GARCIA [address] [place] [address] Kriss Velez DO [address] [place] [address] documented as of this encounter Visit Diagnoses Not on filedocumented in this encounter Care Teams Cashiers Supervisor Relationship Specialty Start Date End Date Wiley Price MD [address] [place] [address] PCP - General Family Medicine 12/10/23 Kimber Price MD [address] [place] [address] Referring Physician Family Medicine 10/15/23 documented as of this encounter
--- OUTSIDE RECORDS SUMMARY | 2025-06-04 15:14 | XMS_ITS | Encounter Summary ---
Author Organization [facility] Address [address] [place] [address] Care Team Providers Care Sole Cutter Name Role Phone Kimber Price MD Unavailable [phone] Wiley Price MD Primary Care Provider [phone] Encounter Details Date Type Department Care Team (Latest Contact Info) Description 05/23/2025 Travel Social History Tobacco Use Types Packs/Day [...] 07/04/2025 11:15 AM EDT Clinical Support [facility] [address] [place] [address] Bakari Nassar, DO [address] [place] [address] 06/05/2026 10:15 AM EDT Office Visit NOMPatrick GARCIA [address] [place] [address] Kriss Velez DO [address] [place] [address] documented as of this encounter Visit Diagnoses Not on filedocumented in this encounter Care Teams Sole Cutter Relationship Specialty Start Date End Date Wiley Price MD [address] [place] [address] PCP - General Family Medicine 12/10/23 Kimber Price MD [address] [place] [address] Referring Physician Family Medicine 10/15/23 documented as of this encounter
--- OUTSIDE RECORDS SUMMARY | 2025-06-04 15:14 | XMS_ITS | Encounter Summary ---
Author Organization [facility] Address [address] [place] [address] Care Team Providers Care Computer Systems Security Administrator Name Role Phone Kimber Price MD Unavailable [phone] Wiley Price MD Primary Care Provider [phone] Encounter Details Date Type Department Care Team (Latest Contact Info) Description 05/24/2025 Travel Social History Tobacco Use Types Packs/Day [...] 07/04/2025 11:15 AM EDT Clinical Support [facility] [address] [place] [address] Bakari Nassar, DO [address] [place] [address] 06/05/2026 10:15 AM EDT Office Visit NOMPatrick GARCIA [address] [place] [address] Kriss Velez DO [address] [place] [address] documented as of this encounter Visit Diagnoses Not on filedocumented in this encounter Care Teams Computer Systems Security Administrator Relationship Specialty Start Date End Date Wiley Price MD [address] [place] [address] PCP - General Family Medicine 12/10/23 Kimber Price MD [address] [place] [address] Referring Physician Family Medicine 10/15/23 documented as of this encounter
--- OUTSIDE RECORDS SUMMARY | 2025-06-04 15:14 | XMS_ITS | Encounter Summary ---
Author Organization [facility] Address [address] [place] [address] Care Team Providers Care Certified Peer Specialist Name Role Phone Kimber Price MD Unavailable [phone] Wiley Price MD Primary Care Provider [phone] Encounter Details Date Type Department Care Team (Late st Contact Info) Description 05/24/2025 Bamboo flowsheet NOMPatrick McWaldwickdoreen GARCIA [address] [place] [address] Kriss Velez, DO [address] [place] [address] Social History Tobacco Use Types [...] Description 07/04/2025 11:15 AM EDT Clinical Support [facility] [address] [place] [address] Bakari Nassar, DO [address] [place] [address] 06/05/2026 10:15 AM EDT Office Visit SARAH GARCIA [address] [place] [address] Kriss Velez, DO [address] [place] [address] documented as of this encounter Visit Diagnoses Not on filedocumented in this encounter Care Teams Certified Peer Specialist Relationship Specialty Start Date End Date Wiley Price MD [address] [place] [address] PCP - General Family Medicine 12/10/23 Kimber Price MD [facility] [place] [address] Referring Physician Family Medicine 10/15/23 documented as of this encounter
--- OUTSIDE RECORDS SUMMARY | 2025-06-04 15:14 | XMS_ITS | Encounter Summary ---
Author Organization [facility] Address [address] [place] [address] Care Team Providers Care Medical Detail Representative Name Role Phone Kimber Price MD Unavailable [phone] Wiley Price MD Primary Care Provider [phone] Encounter Details Date Type Department Care Team (Late st Contact Info) Description 05/23/2025 [facility] [address] [place] [address] Bakari Nassar DO [address] [place], [place] [id number] Social History Tobacco Use Types Packs/Day Years [...] Description 07/04/2025 11:15 AM EDT Clinical Support [facility] [address] [place] [address] Bakari Nassar DO [address] [place] [address] 06/05/2026 10:15 AM EDT Office Visit SARAH GARCIA [address] [place] [address] Kriss Velez DO [address] [place] [address] documented as of this encounter Visit Diagnoses Not on filedocumented in this encounter Care Teams Medical Detail Representative Relationship Specialty Start Date End Date Wiley Priec MD [address] [place] [address] PCP - General Family Medicine 12/10/23 Kimber Price MD [facility] [place] [address] Referring Physician Family Medicine 10/15/23 documented as of this encounter
--- OUTSIDE RECORDS SUMMARY | 2025-06-04 15:15 | XMS_ITS | Clinical Summary ---
Author Organization [facility] Address [address] [place] [address] Care Team Providers Care Customer Relations Consultant Name Role Phone Kimber Price MD Unavailable [phone] Wiley Price MD Primary Care Provider [phone] Allergies No known active allergies Medications aspirin [...] syringe as directed Subcutaneous Active Glucosamine-Cho ndroitin-MSM (Szsbfd-Khwcp-D SM-Double Str) 500-400-167 MG tablet every 12 [...] each day at the same time Active [place]-3 Fatty Acids (Fish Oil) 1200 MG capsule delayed-release 1 capsule every 12 (twelve) hours Active zonisamide (Zonegran) 50 MG capsule TAKE 3 CAPSULES BY MOUTH EVERY DAY AT BEDTIME Active traMADol (Ultram) 50 MG tablet TAKE 1 TABLET BY MOUTH TWICE A DAY NEEDED FOR PAIN MUST LAST 30 DAYS 4 Active cefdinir (Omnicef) 300 MG capsule Take 300 mg by mouth in the morning and 300 mg before bedtime. 5 Active Active Problems Problem Noted Date Diagnosed [...] Encounters Date Type Department Care Team Description 05/30/2025 8:45 AM EDT Clinical Support [facility] [address] [place] [address] Bakari Nassar, Follow-up; Retinal Injection 05/30/2025 Bamboo flowsheet [facility] [address] [place] [address] Bakari Nassar, 05/30/2025 Travel 05/24/2025 10:00 AM EDT Office Visit JUAN MPatrick Bert GARCIA [address] [place] [address] Kriss Velez, Vaginal atrophy (Primary Dx); Encounter for screening mammogram for breast cancer; Cystocele, midline 05/24/2025 Bamboo flowsheet NOMPatrick Bert GARCIA [address] [place] [address] Kriss Velez, 05/24/2025 Travel 05/23/2025 8:30 AM EDT Clinical Support [facility] [address] [place] [address] Bakari Nassar, Retinal Injection; Macular Degeneration 05/23/2025 Bamboo flowsheet [facility] [address] [place] [address] Bakari Nassar, 05/23/2025 Travel 04/18/2025 8:30 AM EDT Clinical Support [facility] [address] [place] [address] Bakari Nassar, DO Retinal Injection; Macular Degeneration 04/18/2025 Bamboo flowsheet [facility] [address] [place] [address] Bakari Nassar, 04/18/2025 Travel 03/07/2025 1:00 PM EDT Clinical Support [facility] [address] [place] [address] Bakari Nassar, Follow-up; Macular Degeneration 03/07/2025 Bamboo flowsheet [facility] [address] [place] [address] Bakari Nassar, 03/07/2025 Travel from Last 3 Months Family History [...] Description 07/04/2025 11:15 AM EDT Clinical Support [facility] [address] [place] [address] Bakari Nassar, DO [address] [place] [address] 06/05/2026 10:15 AM EDT Office Visit JUAN MPatrick Noel JOSE [address] [place] [address] Kriss Velez, [address] [place] [address] Health Maintenance Due Date Last Done Comments Influenza Vaccine (#1) 2025 4, 07/26/2023, 2022, Additional history exists Pneumococcal Vaccine: 65+ Years Completed 8, 01/19/2017 Procedures Procedure Name Priority Date/Time Associated Diagnosis Comments INTRAVITREAL INJECTION, PHARMACOLOGIC AGENT - OD - RIGHT EYE Routine 05/30/2025 9:12 AM EDT Exudative age-related macular 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 (HCC) INTRAVITREAL INJECTION, PHARMACOLOGIC AGENT - OS - LEFT EYE Routine 05/23/2025 9:11 AM EDT 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 eye with active choroidal neovascularization (HCC) OCT, RETINA - OU - BOTH EYES Routine 05/23/2025 9:07 AM EDT 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 eye with active choroidal neovascularization (HCC) INTRAVITREAL INJECTION, PHARMACOLOGIC AGENT - OD - RIGHT EYE Routine 04/18/2025 8:54 AM EDT Exudative age-related macular 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 (HCC) OCT, RETINA - OU - BOTH EYES Routine 04/18/2025 8:49 AM EDT Exudative age-related macular 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 (HCC) INTRAVITREAL INJECTION, PHARMACOLOGIC AGENT - OD - RIGHT EYE Routine 03/07/2025 1:19 PM EDT Exudative age-related macular 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 (HCC) from Last 3 Months Results * Intravitreal [...] 2 MG/0.05ML Route: Intravitreal, Site: Right Eye [facility]: 04336-868-99, Lot: [id number], Expiration date: 06/27/2026, Waste: 0 mL Post-op [...] increased pain, redness, decreased vision or concerns. us Bakari Nassar DO OPHTH CLINIC PROCEDURES Fin al Result * Intravitreal Injection, Pharmacologic Agent - OS [...] 2 MG/0.05ML Route: Intravitreal, Site: Left Eye [facility]: 06864-044-70, Lot: [id number], Expiration date: 06/27/2026, Waste: 0 mL Post-op [...] decreased vision or concerns. Bakari Nassar DO [facility] PROCEDURES Fin al Result * OCT, [...] scan with normal appearance left eye (OS) us Bakari Lauren Nassar DO OPHTH TOMOGRAPHY Edited Res ult - Final * Intravitreal Injection, Pharmacologic Agent - OD - Right Eye (04/18/2025 8:54 AM EDT) Anatomical Region Laterality Modality Head Other Narrative 04/18/2025 8:54 AM EDT Time Out 04/18/2025. 8:54 AM. Confirmed correct patient, procedure, site, and patient consented. Anesthesia Topical anesthesia was used. Anesthetic medications included Lidocaine 2%, Proparacaine 0.5%. Procedure Preparation included 5% betadine to ocular surface, eyelid speculum. A 30 gauge needle was used. Injection: 2 mg aflibercept 2 MG/0.05ML Route: Intravitreal, Site: Right Eye [facility]: 28120-786-09, Lot: [id number], Expiration date: 06/27/2025, Waste: 0 mL Post-op Post injection exam [...] OCT, Retina - OU - Both Eyes (04/18/2025 8:49 AM EDT) Anatomical Region Laterality Modality Head Optical Coherenc e Tomography Narrative 04/18/2025 8:49 AM EDT Right Eye Quality was good. Scan locations included subfoveal. Progression has been stable. Findings include abnormal foveal contour, epiretinal membrane, pigment epithelial detachment. Left Eye Quality was good. Scan locations included subfoveal. Progression has been stable. Findings include abnormal foveal contour. Bakari Nassar DO OPH TOMOGRAPHY Edited Res ult - Final * Intravitreal Injection, Pharmacologic Agent - OD - Right Eye (03/07/2025 1:19 PM EDT) Anatomical Region Laterality Modality Head Other Narrative 03/07/2025 1:19 PM EDT Time Out 03/07/2025. 1:19 PM. Confirmed correct patient, procedure, site, and patient consented. Anesthesia Topical anesthesia was used. Anesthetic medications included Lidocaine 2%, Proparacaine 0.5%. Procedure Preparation included 5% betadine to ocular surface, eyelid speculum. A 30 gauge needle was used. Injection: 2 mg aflibercept 2 MG/0.05ML Route: Intravitreal, Site: Right Eye [facility]: 36165-011-40, Lot: [id number], Expiration date: 03/27/2026, Waste: 0 mL Post-op [...] DO OPHTH CLINIC PROCEDURES Fin al Result from Last 3 Months Insurance [employer] [facility] [place] Care Teams Customer Relations Consultant Relationship Specialty Start Date End Date Wiley Price MD [address] [place] [address] PCP - General Family Medicine 12/10/23 Kimber Price MD [facility] [place] [address] Referring Physician Family Medicine 10/15/23
--- OUTSIDE RECORDS SUMMARY | 2025-06-04 15:15 | XMS_ITS | Clinical Summary ---
Author Organization [facility] Address [address], [address] [place] [address] Care Team Providers Care Police And Fire Dispatcher Name Role Phone Matty Sanz DO Primary Care Provider [phone] Allergies No known active allergies Medications MELOXICAM PO Take by mouth as needed Active raloxifene (EVISTA) 60 MG tablet Take 60 mg by mouth daily Active Multiple Vitamins-Minera ls (THERAPEUTIC MULTIVITAMIN-CT NERALS) tablet Take 1 tablet by mouth daily Active CALCIUM PO Take 600 mg by mouth 2 times daily Active GLUCOSAMINE-CHO NDROITIN PO Take by mouth 2 times daily Active Cholecalciferol (VITAMIN D3) 5000 units TABS Take 7,000 Units by mouth daily Active [place]-3 Fatty Acids (FISH OIL) 1000 MG CAPS [...] on file Insurance [employer] Care Teams Police And Fire Dispatcher Relationship Specialty Start Date End Date Matty Sanz DO PCP - General Internal Medicine 04/15/17
--- OUTSIDE RECORDS SUMMARY | 2025-06-04 15:15 | XMS_ITS | Encounter Summary ---
Author Organization [facility] Address [address] [place] [address] Care Team Providers Care Metal Wire Coating Operator Name Role Phone Kimber Price MD Unavailable [phone] Wiley Price MD Primary Care Provider [phone] Encounter Details Date Type Department Care Team (Late st Contact Info) Description 05/30/2025 [facility] [address] [place] [address] Bakari Nassar DO [address] [place], [place] [id number] Social History Tobacco Use Types Packs/Day Years [...] Description 07/04/2025 11:15 AM EDT [facility] [address] [place] [address] Bakari Nassar DO [address] [place] [address] 06/05/2026 10:15 AM EDT Office Visit SARAH GARCIA [address] [place] [address] Kriss Velez DO [address] [place] [address] documented as of this encounter Visit Diagnoses Not on filedocumented in this encounter Care Teams Metal Wire Coating Operator Relationship Specialty Start Date End Date Wiley Price MD [address] [place] [address] PCP - General Family Medicine 12/10/23 Kimber Price MD [facility] [place] [address] Referring Physician Family Medicine 10/15/23 documented as of this encounter
--- OUTSIDE RECORDS SUMMARY | 2025-06-04 15:16 | XMS_ITS | Encounter Summary ---
Author Organization [facility] Address [address] [place] [address] Care Team Providers Care Critical Care Unit Manager Name Role Phone Kimber Price MD Unavailable [phone] Wiley Price MD Primary Care Provider [phone] Encounter Details Date Type Department Care Team (Late st Contact Info) Description 08/14/2024 Orders Only SARAH Noel JOSE [address] [place] [address] Kriss Velez, DO [address] [place] [address] Social History Tobacco Use Types [...] 07/04/2025 11:15 AM EDT Clinical Support [facility] [address] [place] [address] Bakari Nassar, DO [address] [place] [address] 06/05/2026 10:15 AM EDT Office Visit JUAN MPatrick McBertdoreen GARCIA [address] [place] [address] Kriss Velez, DO [address] [place] [address] documented as of this encounter [...] on filedocumented in this encounter Care Teams Critical Care Unit Manager Relationship Specialty Start Date End Date Wiley Price MD [address] [place] [id number] PCP - General Family Medicine 12/10/23 Kimber Price MD [facility] [place] [address] Referring Physician Family Medicine 10/15/23 documented as of this encounter
--- OUTSIDE RECORDS SUMMARY | 2025-06-04 15:16 | XMS_ITS | Patient Health Record ---
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 Name Role Phone Kimber Almodovar Primary Care Provider Allergies No Known Allergies Results Component Value [...] ESTERASE (REGINA) + NEG - NEG MG/DL CALCIUM Reviewed date:08/07/2024 10:23:32 AM Interpretation: Performing Lab: Notes/Report: [facility] , Calcium 9.3 8.5-10.1 mg/dL Performing Lab: see note - [facility] LB CREATININE Reviewed date:08/07/2024 10:23:32 AM Interpretation: Performing Lab: Notes/Report: [facility] , Creatinine 0.78 0.55-1.02 mg/dL Estimated GFR ( Ginger >60 >=60 mL/min/1.73m 2 Estimated GFR (Non- Miriam >60 >=60 mL/min/1.73m 2 Performing Lab: see note ML - [facility] LB XR hip RT min 2V Reviewed date:08/17/2024 01:38:49 PM Interpretation: Performing Lab: Notes/Report: Source Facility: [place] [address] [place] [address] XRay Report Signed Patient: LETTY COFFEY MR#: [id number] : 1945 Acct:[id number] Age/Sex: 79 / F ADM Date: 08/15/24 Loc: RAD Attending Dr: Hayes Lepe M.D. Ordering Physician: Hayes Lepe M.D. Date of Service: 08/15/24 Procedure(s): XR hip RT min 2V Accession Number(s): [id number] cc: KIMBER ALMODOVAR ; Hayes Lepe M.D. [place] [address] Patient Name: LETTY COFFEY MRN: [id number] date: 1945 Sex: F Assigned Patient Location: [facility] Current Patient Location: [facility] Accession/Order Number: [id number] Exam Date: 08/15/2024 14:52 Report Date: 08/17/2024 06:49 At the request of: HAYES LEPE Procedure: XR hip RT min 2V PROCEDURE: XR hip RT min 2V HISTORY: Right Hip osteoarthritis ; right hip and leg pain COMPARISON: None. FINDINGS: BONES:No fracture, acute abnormality, or significant arthropathy. SOFT TISSUES:No visible soft tissue swelling. EFFUSION:None visible. OTHER: Negative. XR/XR hip RT min 2V IMPRESSION: 1. No acute bone abnormality or significant degenerative joint disease. Electronically authenticated by: MATTHEW COFFEY Date: 08/17/2024 06:49 Dictated By: Matthew Coffey M.D. Signed By: 08/17/2452 DD/ TD/TT: C Application Developer: [place] [address] XRay Report Signed Patient: CHANDLER COFFEY MR#: [id number] : 1945 Acct:[id number] Age/Sex: 79 / F ADM Date: 08/15/24 Loc: RAD Attending Dr: Soto Lepe M.D. Ordering Physician: Hayes Lepe M.D. Date of Service: 08/15/24 Procedure(s): XR hip RT min 2V Accession Number(s): [id number] cc: KIMBER ALMODOVAR ; Hayes Lepe M.D. [place] [address] Patient Name: LETTY COFFEY MRN: TBH:[id number] date: 1945 Sex: F Assigned Patient Loc ation: RAD Current Patient Loca tion: SURGOUT Accession/Order Numb er: [id number] Exam Date: 14:52 Report Date: 08/17/2024 06:49 At the request of: HAYES LEPE Procedure: XR hip RT min 2V PROCEDURE: XR hip RT min 2V HISTORY: Right Hip osteoarthritis ; right hip and leg pain COMPARISON: None. FINDINGS: BONES:No fracture, a cute abnormality, or significant arthropathy. SOFT TISSUES:No visi ble soft tissue swelling. EFFUSION:None visible. OTHER: Negative. X R/XR hip RT min 2V IMPRESSION: 1. No acute bone abnormality or significant degenerative joint disease. Electronically authenticated by: MATTHEW COFFEY Date: 08/17/2024 06:49 Dictated By: Matthew Coffey M.D. Signed By: 08/17/24 0652 DD/ 0649 TD/TT: C Application Developer: CALCIUM Reviewed date:02/08/2025 03:44:08 PM Interpretation: Performing Lab: Notes/Report: [facility] , Calcium 9.1 8.5-10.1 mg/dL Performing Lab: see note ML - [facility] LB CREATININE Reviewed date:02/08/2025 03:45:06 PM Interpretation: Performing Lab: Notes/Report: [facility] , Creatinine 0.58 0.55-1.02 mg/dL Estimated GFR ( Ginger >60 >=60 mL/min/1.73m 2 Estimated GFR (Non- Miriam >60 >=60 mL/min/1.73m 2 Performing Lab: see note ML - [facility] LB MR shoulder LT wo con Reviewed date:08/28/2024 12:07:54 PM Interpretation: Performing Lab: Notes/Report: Source Facility: [place] [address] [place] [address] Magnetic Resonance Report Signed Patient: LETTY COFFEY MR#: [id number] : 1945 Acct:[id number] Age/Sex: 79 / F ADM Date: 08/22/24 Loc: MRI Attending Dr: Hayes Lepe M.D. Ordering Physician: Hayes Lepe M.D. Date of Service: 08/22/24 Procedure(s): MR shoulder LT wo con Accession Number(s): [id number] cc: KIMBER ALMODOVAR ; Hayes Lepe M.D. [place] [address] Patient Name: LETTY COFFEY MRN: [id number] date: 1945 Sex: F Assigned Patient Location: MRI Current Patient Location: MRI Accession/Order Number: [id number] Exam Date: 08/22/2024 09:00 Report Date: 08/23/2024 11:39 At the request of: HAYES LEPE Procedure: MR shoulder LT wo con EXAMINATION: MR shoulder LT wo con HISTORY: Left Shoulder Impingement Syndrome COMPARISON: No relevant comparison available. TECHNIQUE: A variety of imaging planes and parameters were utilized for visualization of suspected pathology. Imaging was performed without or with contrast as indicated by examination type. FINDINGS: ROTATOR CUFF REGION CUFF TENDONS: Tear of the supraspinatus tendon and retraction approximately 1.7 cm. Strain of the subscapularis tendon, but intact. CUFF MUSCLES: Mild edema within the supraspinatus muscle at the musculotendinous junction. DELTOID: Normal. No significant atrophy or tear. LONG BICEPS TENDON: Notable thinning, but suspected to be intact. LABRUM/BICEPS ANCHOR SUPERIOR: Tear of the superior labrum. ANTERIOR/INFERIOR: No visible tear or attrition. POSTERIOR: No posterior labrum abnormality. CAPSULE No visible capsular laxity or thickening. AC JOINT REGION AC JOINT: Moderate-marked degenerative changes, predominantly projecting cephalad rather than involving the undersurface. AC LIGAMENTS: Normal acromioclavicular ligament. CC LIGAMENTS: Normal coracoclavicular ligaments. ACROMION: Normal horizontal (Type I) configuration. SUBACROMIAL BURSA: Small amount of fluid. HYALINE CARTILAGE: Moderate-marked thinning. No appreciable focal defect. OTHER BONES: No fracture, bone lesion, or articular surface irregularity. OTHER OBSERVATIONS: Negative. No other significant findings or glenohumeral effusion. MR/MR shoulder LT wo con IMPRESSION: 1. Tear and retraction of the supraspinous tendon. 2. Strain of the subscapularis tendon. 3. Long head biceps tendon is notably thickened, but suspected to be intact. It is not well seen over the humeral head. 4. Tear of the superior labrum. 5. Degenerative changes of the acromioclavicular joint. Electronically authenticated by: MATTHEW COFFEY Date: 08/23/2024 11:39 Dictated By: Matthew Coffey M.D. Signed By: 08/23/24 1141 DD/ 1139 TD/TT: C Application Developer: [place] [address] Magnetic Resonance Report Signed Patient: CHANDLER COFFEY MR#: [id number] : 1945 Acct:[id number] Age/Sex: 79 / F ADM Date: 08/22/24 Loc: MRI Attending Dr: Soto Lepe M.D. Ordering Physician: Hayes Lepe M.D. Date of Service: 08/22/24 Procedure(s): MR brianna oropeza LT wo con Accession Number(s): [id number] cc: KIMBER ALMODOVAR ; Hayes Lepe M.D. [address] [address] Patient Name: LETTY COFFEY MRN: [facility]:[id number] date: 1945 Sex: F Assigned Patient Loc ation: MRI Current Patient Loca tion: MRI Accession/Order Numb er: [id number] Exam Date: 09:00 Report Date: 08/23/2024 11:39 At the request of: HAYES LEPE Procedure: MR should er LT wo con EXAMINATION: MR sr lder LT wo con HISTORY: Left Should er Impingement Syndrome COMPARISON: No relev ant comparison available. TECHNIQUE: A variety of imaging planes and parameters were utilized for visualization of sheila pected pathology. Imaging was performed without or with contrast as indicate d by examination type. FINDINGS: ROTATOR CUFF REGION CUFF TENDONS: Tear o f the supraspinatus tendon and retraction approximately 1.7 cm. Strain of th e subscapularis tendon, but intact. CUFF MUSCLES: Mild e lilly within the supraspinatus muscle at the musculotendinous junction. DELTOID: Normal. No significant atrophy or tear. LONG BICEPS TENDON: Notable thinning, but suspected to be intact. LABRUM/BICEPS ANCHOR SUPERIOR: Tear of th e superior labrum. ANTERIOR/INFERIOR: N o visible tear or attrition. POSTERIOR: No swage toolsetter ior labrum abnormality. CAPSULE No visible capsular laxity or thickening. AC JOINT REGION AC JOINT: Moderate-m arked degenerative changes, predominantly projecting cephalad rather than involving the undersurface. AC LIGAMENTS: Normal acromioclavicular ligament. CC LIGAMENTS: Normal coracoclavicular ligaments. ACROMION: Normal horizontal (Type I) configuration. SUBACROMIAL BURSA: S mall amount of fluid. HYALINE CARTILAGE: Moderate-marked thinning. No appreciable focal defect. OTHER BONES: No frac ture, bone lesion, or articular surface irregularity. OTHER OBSERVATIONS: Negative. No other significant findings or glenohumeral effusion. M R/MR shoulder LT wo con IMPRESSION: 1. Tear and retracti on of the supraspinous tendon. 2. Strain of the subscapularis tendon. 3. Long head biceps tendon is notably thickened, but suspected to be intact. It is not well seen ove r the humeral head. 4. Tear of the super ior labrum. 5. Degenerative muniz ges of the acromioclavicular joint. Electronically authenticated by: MATTHEW COFFEY Date: 08/23/2024 11:39 Dictated By: Matthew Coffey M.D. Signed By: 08/23/24 1141 DD/ 1139 TD/TT: C Application Developer: MM tomosynthesis screening B I Reviewed date:08/11/2024 12:33:27 PM Interpretation: Performing Lab: Notes/Report: Source Facility: [place] [address] Mammography Report Signed Patient: ELTTY COFFEY MR#: [id number] : 1945 Acct:[id number] Age/Sex: 79 / F ADM Date: 08/11/24 Loc: MAMMO Attending Dr: BREANNE HENDERSON Ordering Physician: BREANNE HENDERSON Results: Date of Service: 08/11/24 Follow Up: Procedure(s): MM tomosynthesis screening BI Accession Number(s): [id number] cc: KIMBER ALMODOVAR ; BREANNE HENDERSON Patient Name: LETTY COFFEY MR#: [id number] : 1945 Exam Date: 08/11/2024 Ordering Doctor: DR. BREANNE HENDERSON D.O. RADIOLOGY REPORT PROCEDURE: MM TOMOSYNTHESIS SCREENING BI COMPARISON: MM TOMOSYNTHESIS SCREENING BI, 07/19/2023. MG MAMM SCREEN 3D SHERRIE CAD, 03/05/2022. MG MAMM SCREEN SHERRIE W CAD, 10/24/2020. MG MAMM SHERRIE SCRN W CAD DIG, 06/12/2013. INDICATIONS: Screening Calculator Name NCI Breast Cancer Risk Assessment Tool 5 Year Breast Cancer Risk 1.60% Lifetime Breast Cancer Risk 3.00% Personal Breast Cancer No Personal Ovarian Cancer No Treatments None Family Cancers None LOCATION: [facility] BREAST COMPOSITION: There are scattered areas of fibroglandular density. FINDINGS: DIAGNOSTIC CATEGORY 1--NEGATIVE. RIGHT BREAST: No significant suspicious finding. No significant change has occurred. LEFT BREAST: No significant suspicious finding. No significant change has occurred. RECOMMENDATIONS: ROUTINE MAMMOGRAM AND CLINICAL EVALUATION IN 12 MONTHS. PLEASE NOTE: A NORMAL MAMMOGRAM DOES NOT EXCLUDE THE POSSIBILITY OF BREAST CANCER. A CLINICALLY SUSPICIOUS PALPABLE LUMP SHOULD BE BIOPSIED. Dictated by: Matthew Coffey M.D. on 08/11/2024 at 11:13 Approved by: Matthew Coffey M.D. on 08/11/2024 at 11:16 Dictated By: Matthew Coffey M.D. Signed By: 08/11/24 1116 DD/ 1116 TD/TT: C Application Developer: [place] [address] Mammography Report Signed Patient: CHANDLER COFFEY MR#: [id number] : 1945 Acct:[id number] Age/Sex: 79 / F ADM Date: 08/11/24 Loc: MAMMO Attending Dr: APOORVA HENDERSON Ordering Physician: BREANNE HENDERSON Results: Date of Service: Follow Up: Procedure(s): MM tomosynthesis screening BI Accession Number(s): [id number] cc: KIMBER ALMODOVAR ; BREANNE HENDERSON Patient Name: LETTY COFFEY MR#: [id number] : 1945 Exam Date: 08/11/2024 Ordering Doctor: DR. BREANNE HENDERSON D.O. RADIOLOGY REPORT PROCEDURE: MM TOMOSYNTHESIS SCREENING BI COMPARISON: MM TOMOSYNTHESIS SCREENING BI, 07/19/2023. MG MAMM SCREEN 3D SHERRIE CAD, 03/05/2022. MG MAMM SCREEN SHERRIE W CAD, 10/24/2020. MG MAMM SHERRIE SCRN W CAD DIG, 06/12/2013. INDICATIONS: Screening Calculator Name NCI Breast Cancer Risk Assessment Tool 5 Year Breast Cancer Risk 1.60% Lifetime Breast Canc er Risk 3.00% Personal Breast Cancer No Personal Ovarian Cancer No Treatments None Family Cancers None LOCATION: [facility] BREAST COMPOSITION: There are scattered areas of fibroglandular density. FINDINGS: DIAGNOSTIC CATEGORY 1--NEGATIVE. RIGHT BREAST: No significant suspicious finding. No significant change has occurred. LEFT BREAST: No significant suspicious finding. No significant change has occurred. RECOMMENDATIONS: ROUTINE MAMMOGRAM AN D CLINICAL EVALUATION IN 12 MONTHS. PLEASE NOTE: A EMILY L MAMMOGRAM DOES NOT EXCLUDE THE POSSIBILITY OF BREAST CANCER. A CLINICALLY SUSPICIOUS PALPABLE LUMP SHOULD BE BIOPSIED. Dictated by: Matthew Coffey M.D. on 08/11/2024 at 11:13 Approved by: Matthew Coffey M.D. on 08/11/2024 at 11:16 Dictated By: Matthew Coffey M.D. Signed By: 08/11/24 1116 DD/ 1116 TD/TT: C Application Developer: XR DEXA axial skeleton Reviewed date:08/09/2024 11:11:46 AM Interpretation: Performing Lab: Notes/Report: Source Facility: [place] [address] XRay Report Signed Patient: LETTY COFFEY MR#: [id number] : 1945 Acct:[id number] Age/Sex: 79 / F ADM Date: 08/07/24 Loc: RAD Attending Dr: KIMBER ALMODOVAR Ordering Physician: KIMBER ALMODOVAR Date of Service: 08/07/24 Procedure(s): XR DEXA axial skeleton Accession Number(s): [id number] cc: KIMBER ALMODOVAR [place] [address] Patient Name: LETTY COFFEY MRN: [id number] date: 1945 Sex: F Assigned Patient Location: RAD Current Patient Location: MAMMO Accession/Order Number: [id number] Exam Date: 08/07/2024 08:55 Report Date: 08/09/2024 07:30 At the request of: KIMBER ALMODOVAR Procedure: XR DEXA axial skeleton EXAMINATION: XR DEXA axial skeleton, 08/07/2024 8:55 AM EST HISTORY: Age Related Osteoporosis COMPARISON: 2021, 2018, 2016. TECHNIQUE: Dual-energy X-ray absorptiometry (DEXA) bone density study performed for the axial skeleton. FINDINGS: Bone mineral density of the left forearm radius is 0.536 g/sq cm. T score -2.5. Osteoporosis. Total femoral bone mineral density is 0.83 g/sq cm. T score -1.4. Osteopenia XR/XR DEXA axial skeleton IMPRESSION: Osteoporosis. High fracture risk Pharmacologic treatment recommendations * No uniform recommendation applies to all patients. Management plans must be individualized. * Consider initiating pharmacologic treatment in postmenopausal women and men >= 50 years of age who have the following: Primary fracture prevention: * T-score <= - 2.5 at the femoral neck, total hip, lumbar spine, 33% radius (some uncertainty with existing data) by DXA. * Low bone mass (osteopenia: T-score between - 1.0 and - 2.5) at the femoral neck or total hip by DXA with a 10-year hip fracture risk >= 3% or a 10-year major osteoporosis-related fracture risk >= 20% (i.e., clinical vertebral, hip, forearm, or proximal humerus) based on the US-adapted FRAXregistered model. Secondary fracture prevention: * Fracture of the hip or vertebra regardless of BMD [4, 5]. * Fracture of proximal humerus, pelvis, or distal forearm in persons with low bone mass (osteopenia: T-score between - 1.0 and - 2.5). The decision to treat should be individualized in persons with a fracture of the proximal humerus, pelvis, or distal forearm who do not have osteopenia or low BMD [12, 13]. Iram MS, Francisco Javier SL, Adolfo KL, Berkley EM, Sy KG, AJ, Yon ES. The clinician's guide to prevention and treatment of osteoporosis. Osteoporos Int. 2021;33(10):2874-8948. doi: 10.1007/c23709-629-74928-t. Epub 2021Jan 22. Erratum in: Osteoporos Int. 2021Apr 23;: PMID: 58984314; PMCID: [id number]. Electronically authenticated by: YOUSUF ORTIZ Date: 08/09/2024 07:30 Dictated By: Yousuf Ortiz M.D. Signed By: 08/09/2433 DD/ 9 TD/TT: C Application Developer: [address] [address] XRay Report Signed Patient: CHANDLER COFFEY MR#: [id number] : 1945 Acct:[id number] Age/Sex: 79 / F ADM Date: 08/07/24 Loc: RAD Attending Dr: KIMBER ALMODOVAR Ordering Physician: KIMBER ALMODOVAR Date of Service: 08/07/24 Procedure(s): XR DEX A axial skeleton Accession Number(s): [id number] cc: KIMBER ALMODOVAR [address] [address] Patient Name: LETTY COFFEY MRN: [id number] date: 1945 Sex: F Assigned Patient Loc ation: RAD Current Patient Loca tion: MAMMO Accession/Order Numb er: [id number] Exam Date: 08:55 Report Date: 08/09/2024 07:30 At the request of: KIMBER ALMODOVAR Procedure: XR DEXA a xial skeleton EXAMINATION: XR DEXA axial skeleton, 08/07/2024 8:55 AM EST HISTORY: Age Related Osteoporosis COMPARISON: 2016. TECHNIQUE: Dual-ener gy X-ray absorptiometry (DEXA) bone density study performed for the axial skeleton. FINDINGS: Bone mineral density of the left forearm radius is 0.536 g/sq cm. T score -2.5. Osteoporosis. Total femoral bone m ineral density is 0.83 g/sq cm. T score -1.4. Osteopenia X R/XR DEXA axial skeleton IMPRESSION: Osteoporosis. High fracture risk Pharmacologic treatm ent recommendations * No uniform recommendation applies to all patients. Management plans must be individualized. * Consider initiatin g pharmacologic treatment in postmenopausal women and men >= 50 years of age w ho have the following: Primary fracture prevention: * T-score <= - 2.5 a t the femoral neck, total hip, lumbar spine, 33% radius (some uncertainty wi th existing data) by DXA. * Low bone mass (osteopenia: T-score between - 1.0 and - 2.5) at the femoral neck or total hip by DXA with a 10-year hip fracture risk >= 3% or a 10-year major osteoporosis-r elated fracture risk >= 20% (i.e., clinical vertebral, hip, forearm, or proximal humerus) based on the US-adapted FRAXregistered model. Secondary fracture prevention: * Fracture of the hi p or vertebra regardless of BMD [4, 5]. * Fracture of proxim al humerus, pelvis, or distal forearm in persons with low bone mass (osteopeni a: T-score between - 1.0 and - 2.5). The decision to treat should be individual ized in persons with a fracture of the proximal humerus, pelvis, or distal fo rearm who do not have osteopenia or low BMD [12, 13]. Iram MS, Francisco Javier SL, Adolfo KL, Berkley EM, Sy KG, AJ, Yon ES. The clinician's guid e to prevention and treatment of osteoporosis. Osteoporos Int. 2021;33(10):0279-6640. doi: 10.1007/w90208-340-93708-n . Epub 2021Jan 22. Erratum in: Oste oporos Int. 2021Apr 23;: PMID: 72846173; PMCID: [id number]. Electronically authenticated by: YOUSUF ORTIZ Date: 08/09/2024 07:30 Dictated By: Nas Ortiz M.D. Signed By: 08/09/24732 DD/ 9 TD/TT: C Application Developer: XR shoulder LT min 2V Reviewed date:08/07/2024 10:23:32 AM Interpretation: Performing Lab: Notes/Report: Source Facility: [place] [address] [place] [address] XRay Report Signed Patient: LETTY COFFEY MR#: [id number] : 1945 Acct:[id number] Age/Sex: 79 / F ADM Date: 08/03/24 Loc: RAD Attending Dr: Mariposa Johnson NP Ordering Physician: Mariposa Johnson NP Date of Service: 08/03/24 Procedure(s): XR shoulder LT min 2V Accession Number(s): [id number] cc: KIMBER ALMODOVAR ; Mariposa Johnson NP [address] [place] [id number] Patient Name: LETTY COFFEY MRN: [id number] date: 1945 Sex: F Assigned Patient Location: RAD Current Patient Location: RAD Accession/Order Number: [id number] Exam Date: 08/03/2024 10:07 Report Date: 08/07/2024 08:07 At the request of: MARIPOSA JOHNSON Procedure: XR shoulder LT min 2V PROCEDURE: XR shoulder LT min 2V COMPARISON: None. HISTORY: Left Shoulder Osteoarthritis FINDINGS: BONES:No acute fracture or dislocation. Moderate acromioclavicular joint osteoarthritis. Moderate glenohumeral joint osteoarthritis. Degenerative changes of the spine SOFT TISSUES:Negative. No visible soft tissue swelling. EFFUSION:None visible. OTHER: Negative. XR/XR shoulder LT min 2V IMPRESSION: Mild to moderate osteoarthritis Electronically authenticated by: YOUSUF ORTIZ Date: 08/07/2024 08:07 Dictated By: Yousuf Ortiz M.D. 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 HISTORY: Left Should er Osteoarthritis FINDINGS: BONES:No acute fract ure or dislocation. Moderate acromioclavicular joint osteoarthritis. Mode rate glenohumeral joint osteoarthritis. Degenerative changes of the spine SOFT TISSUES:Negativ e. No visible soft tissue swelling. EFFUSION:None visible. OTHER: Negative. X R/XR shoulder LT min 2V IMPRESSION: Mild to moderate osteoarthritis Electronically authenticated by: YOUSUF ORTIZ Date: 08/07/2024 08:07 Dictated By: Nas Ortiz M.D. Signed By: 08/07/24809 DD/ 6 TD/TT: C Application Developer: Reason For Referral No Information Medications Medication SIG (Take, Route, Frequency, Duration) Notes Start Date End Date Status Diclofenac Sodium 75 MG 1 tablet as need ed Orally Twice a day for 14 days 11/13/2024 Active Womens 50+ Multi Vitamin - as directed Orally Active Vitamin K2 100 MCG as directed Orally Active Calcium 600 MG 1 tablet with meals Orally Once Active Vitamin D 25 MCG (1000 UT) 1 tablet Orally Once a day Active Baclofen 10 MG TAKE 1 TABLET BY NASEEM TH Oral BID for 30 days Active traMADol HCl 50 MG 1 tablet as needed Orally Once a day PAIN CLINIC 11/13/2024 Active Magnesium Glycinate 100 MG 2 capsule Orally Daily Activ e Losartan Potassium 25 MG TAKE 1 TABLET BY MOUTH EVERY DAY for 90 days Active Zogfri-Eaewn-VVB-Double Str 500-400-167 MG 1 tablet Orally BID Ac tive Fish Oil 1200 MG 1 capsule Orally bid Active Zonisamide 50 MG 3 cap Oral Q HS for 30 days Active Aspirin 81 81 MG 1 tablet Orally Once a day Active Prolia 60 MG/ML as directed Subcutaneous Active PreserVision AREDS 2 - 2 aday Orally Daily Active Niacin 500 MG 1 tablet with food Orally Once a day Active Social History Tobacco Use: Social History Observation Description Date Details (start date - stop date) Never Smoker NA - NA Tobacco Use/Smoking Question Answer Notes Patient is a nonsmoker Problems Problem Type SNOMED Code ICD Code Onset Dates Problem Status W/U Status Risk Notes Problem 37054300 Essential (primary) hypertension (I10) Active confirmed Problem 76841509 Age-related osteoporosis without current pathological fracture (M81.0) Active confirmed Problem 65528548 Chronic maxillar y sinusitis (J32.0) Active confirmed Problem Hyperlipidemia (29086376) Hyperlipidemia (E78.5) Active confirmed Problem Rotoscoliosis (M41.80) Active confirmed Vital Signs Blood pressure diastolic 60 mm Hg 06/04/2025 Height 61.5 in 06/04/2025 Blood pressure systolic 122 mm Hg 06/04/2025 Weight 150.4 lbs 06/04/2025 BMI 27.95 kg/m2 06/04/2025 Encounters Encounter Location Date Provider Diagnosis [address] [address] 11/13/2024 Kimber Almodovar Left hand pain M79.[address] [address] 05/17/2025 Kimberlia Almodovar UTI symptoms R39.[address] [address] 06/04/2025 Kimber Almodovar Dysuria R30.[address] [address] 07/31/2024 Kimber Almodovar Age-related osteoporosis without current pathological fracture M81.[address] [address] 08/11/2024 Kimber [facility] [place] [place] [address] [place] [address] 05/17/2025 Kimberlia Almodovar UTI symptoms R39.9 Assessments Encounter Date Diagnosis (ICD Code) Assessment Notes Treatment Notes Treatment Clinical Notes Section Notes 11/13/2024 Left hand pain (ICD-10 - M79.642) likely arthritic flare try diclofenac, if not helping , try prednisone fu as needed discussed rheum referral, NCS 05/17/2025 UTI symptoms (ICD-10 - R39.9) defers UA CS right now if sx continue, notify office Wednesday will order UA CS 06/04/2025 Dysuria (ICD-10 - R30.0) 07/31/2024 Age-related osteoporosis without current pathological fracture (ICD-10 - M81.0) 05/17/2025 UTI symptoms (ICD-10 - R39.9) Plan Of Treatment Pending Test Test Name Order Date CMP (COMPLETE METABOLIC PANEL) 4 UA (URINALYSIS, COMPLETE) 06/04/2025 HEMOGLOBIN A1C (GLYCO) 01/26/2024 IRON, TOTAL 01/26/2024 LIPID PANEL (CHOL/TRIG/HDL/LDL) 01/26/20 24 CBC WITH DIFF 01/26/2024 VITAMIN D, 25 LEVEL (TOTAL) 01/26/2024 DEXA Axial Skeleton (hips, pelvis, spine )* 07/31/2024 Urine Culture 06/04/2025 UA (Urinalysis, Dipstix only - w/o micro ) 05/17/2025 Insulin Level 01/26/2024 THYROID PANEL (T4/TSH/FREE T3) 4 Insurance Providers Payer Name Payer Address Payer Phone Subscriber Number Group Number Insured Name Patient Relationship to Insured Coverage Start Date Coverage End Date MEDICARE [place] [address] [address] [id number] Letty Coffey Self - patient is the insured O MEDICARE SUPPLEMENT [address] [place] [address] [id number] Letty Coffey Self - patient is the insured Medical (General) History Medical History History ICD Code Hypertension I10 Osteoporosis M81.0 Low back pain associated wit h a spinal disorder other than radiculopathy or spinal stenosis M54.50 Surgical History Surgery Date(Month/Year) appendectomy hysterectomy Hospitalization History Reason Date(Month/Year) see above
[2025-06-04 16:14] LABS: Glucose Urine UA NEGATIVE (NEGATIVE)
[2025-06-04 17:13] LABS: Crystals Seen? Seen #/HPF (None Seen)
[2025-06-04 17:14] LABS: Cast Seen? NONE SEEN #/LPF (NONE SEEN)
== END 2025-06-04 15:11 | disposition home or self-care (01) ==
PROVIDERS: PCP Nurse Practitioner Family; Visit Provider Nurse Practitioner Family
DX: R30.0 Dysuria (principal)
CPT/HCPCS: 81001; 87086; 87088; 87186

== ENCOUNTER 2025-06-08 08:32 | Outpatient (OUT) | payer MEDICARE, OTHER, SELFPAY ==
--- OUTSIDE RECORDS SUMMARY | 2025-05-30 08:45 | XMS_ITS | Encounter Summary ---
Author Organization [facility] Address [address] [place] [address] Care Team Providers Care Skin Carver Name Role Phone Kimber Price MD Unavailable [phone] Wiley Price MD Primary Care Provider [phone] Reason for Visit * Reason Comments Follow-up Retinal Injection Encounter Details Date Type Department Care Team (Late st Contact Info) Description 05/30/2025 8:45 AM EDT Clinical Support [facility] [address] [place] [phone] Bakari Nassar DO [address] [place] [address] Follow-up; Retinal Injection Social History Tobacco Use [...] 2 MG/0.05ML Route: Intravitreal, Site: Right Eye [facility]: 99237-452-46, Lot: [id number], Expiration date: 06/27/2026, Waste: 0 mL Post-op [...] 07/04/2025 11:15 AM EDT Clinical Support [facility] [address] [place] [address] Bakari Nassar DO [address] [place] [address] 06/05/2026 10:15 AM EDT Office Visit [facility] GARCIA [address] [place] [address] JewellKriss dumont DO [address] [place] [address] documented as of this encounter Procedures Procedure [...] 2 MG/0.05ML Route: Intravitreal, Site: Right Eye [facility]: 35293-945-09, Lot: [id number], Expiration date: 06/27/2026, Waste: 0 mL Post-op [...] Eye documented in this encounter Care Teams Skin Carver Relationship Specialty Start Date End Date Wiley Price MD [address] [place] [address] PCP - General Family Medicine 12/10/23 Kimber Price MD [address] [place] [address] Referring Physician Family Medicine 10/15/23 documented as of this encounter
--- NOTE | 2025-05-31 10:18 | PM.CN ---
Consult Note: HPI Data of Consult Patient: known to practice within the last 3 years Requesting Physician: Bessy Johnson NP Primary Care Provider: KIEL ALMODOVAR Consult Narrative Reason for consult: low back pain Narrative: 79 year old female presents for evaluation of chronic right low back and SIJ pain. Pain today 3/10 aching, increasing to 8-9/10 with standing, walking, twisting, pushing, pulling. currently utilizing tylenol, baclofen, tramadol, zonegran, and ASA with benefit without side effects. has failed to benefit from > 6 weeks of PT and provider guided HEP, heat, ice, tylenol, NSAIDs, and oral steroids. cc:: CC: Bessy Johnson NP Review of Systems ROS Status of ROS 10 or more systems reviewed and unremarkable except as noted in history and below Musculoskeletal Reports: back pain, extremity pain and joint pain PFSH PFSH Medical History Osteoarthritis ?M19.90 - Unspecified osteoarthritis, unspecified site (ICD-10) Low back pain ?M54.50 - Low back pain, unspecified (ICD-10) Hiatal hernia ?K44.9 - Diaphragmatic hernia without obstruction or gangrene (ICD-10) Obesity ?E66.9 - Obesity, unspecified (ICD-10) Heart murmur ?R01.1 - Cardiac murmur, unspecified (ICD-10) Surgical History History of ear surgery ?Z98.890 - Other specified postprocedural states (ICD-10) History of phacoemulsification of cataract with intraocular lens implantation ?Z98.49 - Cataract extraction status, unspecified eye (ICD-10) ?Z96.1 - Presence of intraocular lens (ICD-10) Hx of appendectomy ?Z90.49 - Acquired absence of other specified parts of digestive tract (ICD-10) H/O: hysterectomy ?Z90.710 - Acquired absence of both cervix and uterus (ICD-10) History of tonsillectomy ?Z90.89 - Acquired absence of other organs (ICD-10) Meds Home Medications and Allergies Home Medications ?Medication ?Instructions ?Recorded ?Confirmed ?Type aspirin 81 mg tablet,delayed 81 mg PO DAILY 02/26/23 02/26/25 History release (Adult Low Dose Aspirin) denosumab 60 mg/mL subcutaneous 60 mg subcut .Q6 MONTHS 02/26/23 02/26/25 History syringe (Prolia) niacin 500 mg tablet 500 mg PO DAILY 02/26/23 02/26/25 History losartan 25 mg tablet 25 mg PO DAILY 03/01/23 02/26/25 History antiarthritic combination no.2 900 2 mg PO DAILY 07/15/23 02/26/25 History mg tablet (glucosamine-chondroitin) calcium 600 mg (as 2 cap PO DAILY 07/15/23 02/26/25 History carbonate)-vitamin D3 5 mcg (200 unit) capsule (Calcium 600 + D(3)) magnesium glycinate 100 mg (as 100 mg PO BID 07/15/23 02/26/25 History glycinate) tablet (Mag Glycinate) multivitamin (Daily Multi-Vitamin 1 tab PO DAILY 07/15/23 02/26/25 History tablet) omega 4-gpn-pvo-fish oil 1,200 mg 2 cap PO DAILY 07/15/23 02/26/25 History (144 mg-216 mg) capsule (Fish Oil) vit C 250 mg-vit E 90 mg-zinc 40 1 tab PO BID 07/15/23 02/26/25 History mg-copper 1 bh-ygvrdh-taubwp capsule (PreserVision AREDS-2) vitamin K2 100 mcg capsule 100 mcg PO DAILY 07/15/23 02/26/25 History cholecalciferol (vitamin D3) 50 2,000 unit PO BID 01/11/24 02/26/25 History mcg (2,000 unit) capsule (Vitamin D3) baclofen 10 mg tablet 10 mg PO BID PRN muscle spasm #180 09/13/24 02/26/25 Rx tabs tramadol 50 mg tablet See Rx Instructions .Route 12/19/24 02/26/25 Rx .COMPLEX PRN pain #75 tabs zonisamide 50 mg capsule 150 mg (3 x 50 mg) PO DAILY #90 01/04/25 02/26/25 Rx caps zonisamide 50 mg capsule See Rx Instructions .Route 04/04/25 Rx .COMPLEX #90 caps tramadol 50 mg tablet 50 mg PO BID PRN pain #75 tabs 04/16/25 Rx tramadol 50 mg tablet See Rx Instructions .Route 05/22/25 Rx .COMPLEX PRN pain #75 tabs Allergies Allergy/AdvReac Type Severity Reaction Status Date / Time No Known Drug Allergies Allergy Verified 02/26/25 11:05 Exam Constitutional Documenting provider has reviewed patient's vital signs: yes Common normals: no apparent distress, oriented x3, healthy appearing, alert and well nourished General appearance: cooperative HENMT Common normals: normocephalic, hearing grossly normal bilaterally and moist oral mucous membranes Head and scalp: normocephalic Eye Common normals: PERRL Pupil: PERRL Neck & C-Spine Common normals: full ROM General: normal visual inspection Chest Common normals: inspection of chest normal Respiratory Common normals: normal respiratory effort, no retractions and no use of accessory muscles Back & Pelvis Lumbar spine/lower back: ROM limited, pain with ROM and straight leg raise negative bilaterally Sacroiliac joints: SI joint(s) abnormal Other: positive right angel(patricks), gaenslens, thigh thrust, compression test positive facet loading sensation intact BLE strength 5/5 in BLE Extremity Common normals: normal to inspection and full ROM Neuro Common normals: oriented x3 Sensorium/orientation: alert Motor exam: no movement abnormalities noted Psych Common normals: mental status grossly normal, thought process normal, cooperative, affect normal, speech normal and activity/motor behavior normal Speech: normal speech Thought process: normal thought process Assessment and Plan Assessment and Plan (1) Sacroiliitis: Assessment and Plan: 02/26/25 right SIJ injection 50% improvement greater than 3 months (2) Lumbar stenosis with neurogenic claudication: Assessment and Plan: 01/29/25 right L4-5 L5-S1 TFESI >50% improvement ongoing (3) Chronic prescription opiate use: Assessment and Plan: risks vs benefits reviewed, has failed to benefit from tylenol motrin aleve and diclofenac. finds benefit to tramadol 50mg BID PRN without side effects Plan The patient has had over 3 months of moderate to severe low back, right SIJ pain with functional impairment and inadequate response to conservative care including NSAIDS (unless there are contraindication such as concurrent blood thinners), multiple oral or topical pain medications, and home exercise program/physical therapy.? Patient has completed >6 weeks of guided home exercise program and/or formal physical therapy program without relief of their symptoms.? The Oswestry Disability Index was completed, and the patient scored a 32%.? repeat right SIJ injection, prior injection provided at least 50% improvement for 3 months continue current medications, finds benefit withotu side effects update UDS today for yearly medication monitoring f/u 2 weeks after injeciton
--- OUTSIDE RECORDS SUMMARY | 2025-06-08 08:35 | XMS_ITS | Clinical Summary ---
Author Organization [facility] Healthcare Address [address] [place] [address] Care Team Providers Care Clinical Academic Allergist Name Role Phone Kimber Price MD Unavailable [phone] Wiley Price MD Primary Care Provider [phone] Allergies No known active allergies Medications aspirin [...] syringe as directed Subcutaneous Active Glucosamine-Cho ndroitin-MSM (Vrlbjt-Fzrrs-L SM-Double Str) 500-400-167 MG tablet every 12 [...] each day at the same time Active [place]-3 Fatty Acids (Fish Oil) 1200 MG capsule [...] Description 05/30/2025 8:45 AM EDT Clinical Support [facility] [address] [place] [phone] Bakari Nassar, Follow-up; Retinal Injection 05/30/2025 Bamboo flowsheet [facility] [address] [place] [phone] Bakari Nassar, 05/30/2025 Travel 05/24/2025 10:00 AM EDT Office Visit JUAN MPatrick Bert GARCIA [address] [place] [address] Kriss Velez, Vaginal atrophy (Primary Dx); Encounter for screening mammogram for breast cancer; Cystocele, midline 05/24/2025 Bamboo flowsheet [facility] Bert GARCIA [address] [place] [address] Kriss Velez, 05/24/2025 Travel 05/23/2025 8:30 AM EDT Clinical Support [facility] [address] [place] [address] Bakari Nassar, Retinal Injection; Macular Degeneration 05/23/2025 Bamboo flowsheet [facility] [address] [place] [phone] Bakari Nassar DO 05/23/2025 Travel 04/18/2025 8:30 AM EDT Clinical Support SARAH [facility] [address] [place] [address] Bakari Nassar DO Retinal Injection; Macular Degeneration 04/18/2025 Bamboo flowsheet [facility] [address] [place] [address] Bakari Nassar DO 04/18/2025 Travel from Last 3 Months Family History [...] Description 07/04/2025 11:15 AM EDT Clinical Support SARAH [facility] [address] [place] [address] Bakari Nassar DO [address] [place] [address] 06/05/2026 10:15 AM EDT Office Visit JUAN MPatrick Bert GARCIA [address] [place] [address] Kriss Velez DO [address] [place] [address] Health Maintenance Due Date Last Done Comments [...] 2 MG/0.05ML Route: Intravitreal, Site: Right Eye [facility]: 57040-625-59, Lot: [id number], Expiration date: 06/27/2026, Waste: 0 mL Post-op [...] MG/0.05ML Route: Intravitreal, Site: Left Eye [facility]: 92353-538-09, Lot: [id number], Expiration date: 06/27/2026, Waste: 0 mL Post-op [...] 2 MG/0.05ML Route: Intravitreal, Site: Right Eye [facility]: 87017-454-82, Lot: [id number], Expiration date: 06/27/2025, Waste: 0 mL Post-op [...] been stable. Findings include abnormal foveal contour. us Bakari Nassar DO OPHTH TOMOGRAPHY Edited Res ult - Final from Last 3 Months Insurance [address] [place] [address] MEDICARE [employer] [place] Care Teams Clinical Academic Allergist Relationship Specialty Start Date End Date Wiley Price MD [address] [place] [address] PCP - General Family Medicine 12/10/23 Kimber Price MD [address] [place] [address] Referring Physician Family Medicine 10/15/23
--- OUTSIDE RECORDS SUMMARY | 2025-06-08 08:35 | XMS_ITS | Clinical Summary ---
Author Organization [facility] Address [address], [address] [place] [address] Care Team Providers Care Rod Piler Name Role Phone Matty Sanz DO Primary Care Provider [phone] Allergies No known active allergies Medications MELOXICAM PO Take by mouth as needed Active raloxifene (EVISTA) 60 MG tablet Take 60 mg by mouth daily Active Multiple Vitamins-Minera ls (THERAPEUTIC MULTIVITAMIN-VA NERALS) tablet Take 1 tablet by mouth daily Active CALCIUM PO Take 600 mg by mouth 2 times daily Active GLUCOSAMINE-CHO NDROITIN PO Take by mouth 2 times daily Active Cholecalciferol (VITAMIN D3) 5000 units TABS Take 7,000 Units by mouth daily Active [place]-3 Fatty Acids (FISH OIL) 1000 MG CAPS [...] on file Insurance [employer] Care Teams Rod Piler Relationship Specialty Start Date End Date Matty Sanz DO PCP - General Internal Medicine 04/15/17
--- OUTSIDE RECORDS SUMMARY | 2025-06-08 08:35 | XMS_ITS | Clinical Summary ---
Author Organization [facility] Address [address] [place] [address] Care Team Providers Care Pediatric Neurologist Name Role Phone Emely Kramer MD Primary Care Provider [phone] Allergies No known active allergies Medications omega-3 1,000 mg capsule capsule Take 360 mg by mouth. Active glucosamine/ashley dr love hernandez (glucosamine-cho ndroitin) 167-133 mg capsule Take by mouth. Active CALCIUM-VITAMIN D3 ORAL Take 600 mg by mouth. Active niacin 500 mg ER capsule Take 500 mg by mouth. Active cholecalciferol (D3-5) 5,000 Units tablet Take 7,000 Units by mouth. Active aspirin 81 mg EC tablet Take 81 mg by mouth. Active losartan (Cozaar) 25 mg tablet Take 25 mg by mouth in the morning. 02/19/2023 Active baclofen (Lioresal) 10 mg tablet TAKE 1/2 TO 1 TABLET BY MOUTH 2 TIMES A DAY 04/30/2023 Active zonisamide (Zonegran) 50 mg capsule Take 100 mg by mouth at bedtime. 04/30/2023 Active denosumab (Prolia) 60 mg/mL syringe Inject 60 mg under the skin 1 (one) time. Active multivitamin tablet Take 1 tablet by mouth in the morning. Active vit C/E/Zn/coppr/lut ein/zeaxan (PRESERVISION AREDS-2 ORAL) Take by mouth. Active VITAMIN K2 ORAL Take by mouth. Active Active Problems Problem Noted Date Diagnosed Date Macular pucker, right eye 04/27/20172022 Immunizations Immunization Administration Dates Next Due Covid (Pfizer) Bivalent Booster =>12 YRS 022 Influenza, High Dose Seasona l, Preservative Free 2017 Influenza, High-dose Seasona l, Quadrivalent, Preservative Free 07/03/2021 Influenza, Seasonal, Quadriv alent, Adjuvanted 2022,07/02/2020 Influenza, injectable, quadr ivalent, preservative free 08/12/2015 Influenza, seasonal, injectable 08/03/2013 Influenza, seasonal, injecta ble, preservative free, 6 moonths & older 07/24/2014 Influenza, trivalent, adjuvanted 07/14/2018 Pfizer SARS-CoV-2 Vaccination 07/03/2021, 021,10/31/2020 Pneumococcal Conjugate PCV 13 01/19/2017 Pneumococcal Polysaccharide PPV23 06/09/2018 Zoster, Recombinant 12/08/2019 Family History Medical History Relation Name Comments Stomach cancer Father heart issues Mother Relation Name Status Comments Father Mother Social History Tobacco Use Types Packs/Day Years Used Date Smoking Tobacco: Never Smokeless Tobacco: Never Alcohol Use Standard Drinks/Week Comments Never 0 (1 standard drink = 0.6 oz pur e alcohol) Humiliation, Afraid, Rape, and Kick questionnair e Answer Date Recorded Within the last year, have y ou been afraid of your partner or ex-partner? No 05/13/2023 Emotionally Abused Not on file 05/13/2023 Physically Abused Not on file 05/13/2023 Sexually Abused Not on file 05/13/2023 PHQ-2 Answer Date Recorded Patient Health Questionnaire-2 Score 0 05/13/2023 [place] Safety & Environment Answer Date Rec orded Within the last year, have y ou been afraid of your partner or ex-partner? No 05/13/2023 Emotionally Abused Not on file 05/13/2023 Physically Abused Not on file 05/13/2023 Sexually Abused Not on file 05/13/2023 In the past year have you be en physically or sexually abused? Unrecognized value 05/13/2023 Comments Unknown Sex and Gender Information Value Date Recorded Sex Assigned at Choose not to disclose 12:14 PM EDT Legal Sex Female 1:18 PM EDT Gender Identity Choose not to disclose 12:14 PM EDT Sexual Orientation Choose not to disclose 2022 12:14 PM EDT Last Filed Vital Signs Vital Sign Reading Time Taken Comments Blood Pressure 151/75 05/13/2023 10:58 AM EDT Pulse 83 05/13/2023 10:58 AM EDT Temperature 36.8 C (98.3 F) 05/13/2023 10:58 AM EDT Respiratory Rate - - Oxygen Saturation - - Inhaled Oxygen Concentration - - Weight 78.4 kg (172 lb 12.8 oz) 023 10:58 AM EDT Height 156.2 cm (5' 1.5 ) 05/13/2023 10 :58 AM EDT Body Mass Index 32.12 05/13/2023 10:58 AM EDT Plan of Treatment Health Maintenance Due Date Last Done Comments Medicare Annual Wellness (AWV) 1945 Depression Screening 1959 Adult Tetanus 1969 Fall Risk Screening 2012 Zoster Vaccines (2 of 2) 02/02/2020 12/08/2019 COVID-19 Vaccine ( season) 2025 2022, 07/03/2021, 11/21/2020, Additional history exists Influenza Vaccine (#1) 2025 2, 07/03/2021, 07/02/2020, Additional history exists Pneumococcal Vaccine: 50+ Years Completed 06/09/2018, 01/19/2017 HIB Vaccines Aged Out No longer eligi ble based on patient's age to complete this topic HPV Vaccines Aged Out No longer eligi ble based on patient's age to complete this topic IPV Vaccines Aged Out No longer eligi ble based on patient's age to complete this topic Meningococcal B Vaccine Aged Out No l onger eligible based on patient's age to complete this topic Meningococcal Vaccine Aged Out No marck alli eligible based on patient's age to complete this topic Rotavirus Vaccines Aged Out No longer eligible based on patient's age to complete this topic Insurance [facility] MEDICARE Care Teams Pediatric Neurologist Relationship Specialty Start Date End Date Emely Kramer MD [address] [facility] P[facility] - General 05/13/23
--- OUTSIDE RECORDS SUMMARY | 2025-06-08 08:35 | XMS_ITS | Encounter Summary ---
Author Organization [facility] Address [address] [place] [address] Care Team Providers Care Solar Installer Technician Name Role Phone Kimber Price MD Unavailable Wiley Price MD Primary Care Provider [phone] Encounter Details Date Type Department Care Team (Late st Contact Info) Description 05/30/2025 [facility] [address] [place] [address] Bakari Nassar DO [address] [place], [place] [id number] Social History Tobacco Use Types Packs/Day Years [...] Description 07/04/2025 11:15 AM EDT Clinical Support [facility] [address] [place] [address] Bakari Nassar DO [address] [place] [address] 06/05/2026 10:15 AM EDT Office Visit SARAH GARCIA [address] [place] [phone] Kriss Velez DO [address] [place], [place] [phone] documented as of this encounter Visit Diagnoses Not on filedocumented in this encounter Care Teams Solar Installer Technician Relationship Specialty Start Date End Date Wiley Price MD [address] [place] [address] PCP - General Family Medicine 12/10/23 Kimber Price MD [facility] [place] [address] Referring Physician Family Medicine 10/15/23 documented as of this encounter
--- OUTSIDE RECORDS SUMMARY | 2025-06-08 08:35 | XMS_ITS | Encounter Summary ---
Author Organization [facility] Address [address] [place] [address] Care Team Providers Care Severity Of Illness Coordinator Name Role Phone Kimber Price MD Unavailable [phone] Wiley Price MD Primary Care Provider [phone] Encounter Details Date Type Department Care Team (Late st Contact Info) Description 08/14/2024 Orders Only SARAH Noel JOSE [address] [place] [address] Kriss Velez, DO [address] [place] [address] Social History Tobacco Use Types [...] 07/04/2025 11:15 AM EDT Clinical Support [facility] [address] [place] [address] Bakari Nassar, DO [address] [place] [address] 06/05/2026 10:15 AM EDT Office Visit JUAN MPatrick [facility]oreen GARCIA [address] [place] [address] Kriss Velez, DO [address] [place] [address] documented as of this encounter [...] on filedocumented in this encounter Care Teams Severity Of Illness Coordinator Relationship Specialty Start Date End Date Wiley Price MD [address] [place] [id number] PCP - General Family Medicine 12/10/23 Kimber Price MD [facility] [place] [address] Referring Physician Family Medicine 10/15/23 documented as of this encounter
--- OUTSIDE RECORDS SUMMARY | 2025-06-08 08:37 | XMS_ITS | CCD ---
Author Organization [facility] CliniSynm Care Team Providers Care Outdoor Studies Professor Name Role Phone EMRE STAPLETON Unavailable Unavailable [...] Unavailable THOMAS, DR LUIS Becker Admitting Unavailable MARTHA, DR [...] MARTHA, DR LUIS Becker Primary Care Unavailable JEWETT, DR YOUSUF Ferguson Consulting Unavailable MARTHA, DR [...] Becker Consulting Unavailable LEES ., DR YULI Nugyen Consulting Unavailable RUIZ ., SHAWNA Consulting Unavailable [...] LEES ., DR YULI Nguyen Attending Unavailable JEWETT, DR YUOSUF Ferguson Consulting Unavailable THOMAS, DR LUIS Becker [...] Unavailable OVITT, Referring Unavailable OVITT, Attending Unavailable Dee PALM, Kimber Unavailable Wiley Price MD Primary Care Provider [phone] Wiley Price MD Primary Care Provider [phone] Gijose l PALM, Andrius Yo Attending Unavailable Giedraitis , Andrius Vytautorlin Attending Unavailable Giedraitis , Andrius Vytautorlin Attending Unavailable Giedraitis , Andrius Vytautas Attending Unavailable Giedraitis , Andrius Vytautas Attending Unavailable Giedraitis , Andrius Vytautas Attending Unavailable Giedraitis , Andrius Vytautas Attending Unavailable Giedraitis , Andrius Vytautas Attending Unavailable DUSTY NASSAR Attending Unavailable DUSTY NASSAR Attending Unavailable DUSTY NASSAR Attending Unavailable DUSTY NASSAR Attending Unavailable DUSTY NASSAR Attending Unavailable KRISS VELEZ Attending Unavailable DUSTY NASSAR Attending Unavailable DUSTY NASSAR Attending Unavailable DUSTY NASSAR Attending Unavailable Allergies Allergy Classification Reported Allergen(s) Allergy Type Date of Onset Reaction(s) Facility (1 source) ALLERGIES NOT ON FILE; Translations: [ALLERGIES NOT ON FILE] Propensity to adverse reactions (disorder) [facility] Repository Medications Current Medications Medication Drug Class(es) [...] / zinc oxide 17.4 mg oral capsule (20 sources) Vitamin C Multiple Vitamins-Mineral s (PreserVision AREDS 2) capsule 1 (one) time each day at the same time Active PreserVision ARE DS 2 - as directed Orally Active aspirin 81 mg delayed release oral tablet (20 sources) Platelet Aggregation Inhibitor, Nonsteroidal Anti-inflammatory Drug aspirin 81 MG EC tab let 1 (one) time each day at the same time Active take 1 tablet by mouth once ginger y Aspirin 81 81 MG 1 tablet Orally Once a day Active baclofen 10 mg oral tablet (20 sources) gamma-Aminobutyric Acid-ergic Agonist Start: 04-30-2023 baclofen (Lioresal) 10 MG tablet every 12 (twelve) hours 04/30/2023 Active take 1 tablet by mouth every twe lve hours Baclofen 10 MG 1 tablet as needed Orally Twice a day Active calcium carbonate 1500 mg oral tablet (20 sources) take 1 tablet by arminda th once at mealtime calcium carbonate (Super Calcium) 1500 (600 Ca) MG tablet 1 tablet with meals Orally Once Active take 1 tablet by mouth every twe lve hours Calcium 600 MG 1 tablet with meals Orally Twice a day Active cefdinir 300 mg oral capsule (6 sources) Cephalosporin Antibacterial Start: 05-17-2025 take 1 capsule by mouth in the morning cefdinir (Omnicef) 300 MG capsule Take 300 mg by mouth in the morning and 300 mg before bedtime. 05/17/2025 Active cholecalciferol 0.025 mg oral tablet (20 sources) Vitamin D cholecalciferol (Vitamin D3) 25 MCG (1000 UT) tablet 1 (one) time each day at the same time Active take 1 tablet by arminda th every twenty-four hours Vitamin D 50 MCG (2000 UT) 1 tablet Orally Once a day Active chondroitin sulfates 400 mg / glucosamine sulfate 500 mg / methylsulfonylmethane 167 mg oral tablet (19 sources) Glucosamine-Eugene droitin-MSM (Qbmhen-Shwyp-BJN-Double Str) 500-400-167 MG tablet every 12 (twelve) hours Active 1 ml denosumab 60 mg/ml prefilled syringe (20 sources) RANK Ligand Inhibitor denosumab (Prolia) 6 0 MG/ML solution prefilled syringe as directed Subcutaneous Active Fish Oils (5 sources) take 1 capsule by mouth once daily Fish Oil 1000 MG 1 capsule Orally Once a day Active Tsoepr-Hatl-FAE-Ca-C-CtCl -SeCu - (5 sources) Yhogkf-Awac-VOL- Ui-Q-YuIi-SeCu - as directed Orally Active losartan potassium 25 mg oral tablet (20 sources) Angiotensin 2 Receptor Héctor Star t: 12-27 losartan (Cozaar) 25 MG tabl et Oral for 90 Days 02/19/2023 Active Magnesium glycinate (20 sources) Magnesium Glycin ate 100 MG capsule 2 capsules 1 (one) time each day at the same time Active Magnesium Glycin ate 100 MG as directed Orally Active Multiple Vitamins-Minerals (Womens 50+ Multi Vitamin) tablet (19 sources) Multiple Vitamins-Minerals (Womens 50+ Multi Vitamin) tablet as directed Orally Active niacin 500 mg oral tablet (20 sources) Nicotinic Acid niacin 500 MG ta blet 1 (one) time each day at the same time Active [place]-3 Fatty Acids (Fish Oil) 1200 MG capsule delayed-release (19 sources) take 1 capsule by mouth every twelve hours [place]-3 Fatty Acids (Fish Oil) 1200 MG capsule delayed-release 1 capsule every 12 (twelve) hours Active traMADol hydrochloride 50 mg oral tablet (19 sources) Opioid Agonist Start: 024 take 1 tablet by mouth twice daily as needed for pain traMADol (Ultram) 50 MG tablet TAKE 1 TABLET BY MOUTH TWICE A DAY NEEDED FOR PAIN MUST LAST 30 DAYS 01/27/2024 Active vitamin k 0.1 mg oral tablet (5 sources) Vitamin K2 100 M CG as directed Orally Active vitamin k2 0.1 mg oral capsule (19 sources) Menaquinone-7 (V itamin K2) 100 MCG capsule as directed Orally Active Womens 50+ Multi Vitamin - (5 sources) Womens 50+ Multi Vitamin - as directed Orally Active zonisamide 50 mg oral capsule (20 sources) Anti-epileptic Agent take 3 capsules by mouth once daily at bedtime zonisamide (Zonegran) 50 MG capsule TAKE 3 CAPSULES BY MOUTH EVERY DAY AT BEDTIME Active Zonisamide 50 MG as directed Orally Active Completed/Discontinued Medications Medication Drug Class(es) Dates Sig (Normalized) Sig (Original) 0.05 ml aflibercept 40 mg/ml injection (7 sources) Vascular Endothelial Growth Factor Inhibitor Start: 05-30-2025 End: 05-30-2025 2 mg, Intravitreal, Once PRN Procedure, Starting on Wed05/30/25 at 0912, For 1 dose Start: 05-23-2025 End: 05-23-2025 2 mg, Intravitreal, Once PRN Procedure, Starting on Wed05/23/25 at 0911, For 1 dose Start: 04-18-2025 End: 04-18-2025 2 mg, Intravitreal, Once PRN Procedure, Starting on Wed04/18/25 at 0854, For 1 dose Start: 03-07-2025 End: 03-07-2025 2 mg, Intravitreal, Once PRN Procedure, Starting on Wed03/07/25 at 1319, For 1 dose Start: 02-28-2025 End: 02-28-2025 2 mg, Intravitreal, [...] Classification Problem Date Documented Date Episodic/Chronic Cataract (20 sources) 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; Translations: [Other [...] Heart murmur; Translations: [Cardiac murmur, unspecified] Episodic Menopausal disorders (2 sources) Atrophy of vagina; Translations: [Postmenopausal atrophic vaginitis] 05-24-2025 Chronic Nutritional deficiencies (5 sources) Vitamin D deficiency; [...] Chronic Other aftercare (3 sources) 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; Translations: [OTH OUTREACH EDUCATOR CURRENT DRUG THERAPY] Onset: 03-12-2022 Episodic Other [...] IN RIGHT HIP] Onset: 03-12-2022 Episodic Other screening for suspected conditions (not mental disorders or infectious disease) (3 sources) Encounter for screening mammogram for malignant neoplasm of breast; Translations: [Patient encounter status] Onset: 03-12-2022 05-16-2025 Episodic Other upper respiratory infections (1 source) Acute maxillary sinusitis, unspecified Episodic Prolapse of female genital organs (2 sources) Midline cystocele; Translations: [Cystocele, midline] 05-24-2025 Chronic Residual codes; unclassified (7 sources) Asymptomatic menopausal state; Translations: [Menopause] Onset: 03-12-2022 Episodic Retinal detachments; defects; vascular occlusion; and retinopathy (20 sources) Exudative age-related macular degeneration; Translations: [Exudative [...] that caused by tuberculosis or sexually transmitteddisease) (19 sources) Blepharitis of upper and lower eyelids [...] [SARCOPENIA] Onset: 05-21-2022 Episodic Other eye disorders (19 sources) Dry eyes; Translations: [Dry eye syndrome of bilateral lacrimal glands] Onset: 10-11-2023 10-11-2023 Episodic Unclassified (1 source) MACULAR PUCKER RIGHT EYE; Translations: [MACULAR PUCKER RIGHT EYE] Onset: 04-27-2017 Unclassified (1 source) LOW BACK PAIN, UNSPECIFIED; Translations: [LOW BACK PAIN, UNSPECIFIED] Onset: 01-28-2023 Viral infection (6 sources) Disease caused by 2019-nCoV; Translations: [COVID-19] Results Test Name Value Interpretation Reference Range Facility Intravitreal Injection, Phar macologic Agent - OD - Right Eyeon 05-30-2025 [facility] Radiology Study observation (narrative) [facility] Left eye Ophthalmologic chata tmenton 05-23-2025 [facility] Radiology Study observation (narrative) [facility] Optical coherence tomography study reporton 05-23-2025 [facility] Radiology Study observation (narrative) [facility] Intravitreal Injection, Phar macologic Agent - OD - Right Eyeon 04-18-2025 [facility] Radiology Study observation (narrative) [facility] Optical coherence tomography study reporton 04-18-2025 [facility] Radiology Study observation (narrative) [facility] Intravitreal Injection, Phar macologic Agent - OD - Right Eyeon 03-07-2025 [facility] Radiology Study observation (narrative) [facility] Optical coherence tomography study reporton 03-05-2025 [facility] Left eye Ophthalmologic chata tmenton 02-28-2025 [facility] Radiology Study observation (narrative) [facility] Optical coherence tomography study reporton 02-28-2025 Radiology Study observation (narrative) [facility] Left eye Ophthalmologic chata tmenton 09-26-2024 [facility] Radiology Study observation (narrative) [facility] Optical coherence tomography study reporton 09-26-2024 [facility] Radiology Study observation (narrative) [facility] Left eye Ophthalmologic chata tmenton [facility] Optical coherence tomography study reporton 07-25-2024 [facility] Radiology Study observation (narrative) [facility] Left eye Ophthalmologic chata tmenton 05-30-2024 [facility] Radiology Study observation (narrative) [facility] Optical coherence tomography study reporton 05-30-2024 [facility] Radiology Study observation (narrative) [facility] 36on 05-17-2023 36 Spoke with patient. [...] refer her to someone who does SCS. [facility] 36on 05-14-2023 36 Left message for an [...] back on Wednesday to follow-up regarding this. [facility] Telephoneon 05-14-2023 Telephone [phone] [id number] F Date Provider Department Center 05/14/2023 GILES, [facility] SURG [place] Family History Problem Relation Age of Onset Other Mother Stomach cancer Father Family Status - Relation Status Age at Mother Father [facility] Consulton 05-13-2023 Consult [phone] [id number] F Date Provider Department Center 05/13/2023 148ELICEO, [facility] SURG Second Fl Family History Problem Relation Age of Onset Other Mother Stomach cancer Father Family Status - Relation Status Age at Mother Father Level of Service:[id number] ND OFFICE/OUTPATIENT NEW MODERATE MDM 45-59 MINUTES Reason for Visit and Comments: Consult [774] - Pt is here for a CO visit for Spinal Stenosis. 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 Imaging requested from [facility]. [facility] MRI LSPINE WO CONon 02-11-20 MRI LSPINE [...] Date: 2023-02-10 07:16 Normal [facility] CALCIUMon 12-24-2022 Calcium [Mass/Vol] 9.7 mg/dL Normal 8.5-10.1 [facility] Comment on above: Performed By: #### C Dora, CREA ####[facility] [address] [place] [address]Dr. Holly Fisher CREATININEon 12-24-2022 Creatinine [Mass/Vol] 0.62 mg/dL Normal 0.55-1.02 [facility] Comment on above: Performed By: #### C Dora, CREA ####[facility] [address] [place] [address]Dr. [facility] EGFR-AF KENYAN >60 Normal >=60 [facility] Comment on above: Performed By: #### C Dora, CREA ####[facility] [address] [place] [id number]. [facility] EGFR-NON AF KENYAN >60 Normal >=60 [facility] Comment on above: Performed By: #### C A, CREA ####[facility] [address] [place] [address]Dr. Holly Fisher [facility] SARS-CoV-2 (COVID-19) RNA FRED+probe Ql (Unsp spec) Not detected Normal NOT DETECTED [facility] Comment on above: Result Comment: This test is not yet approved or cleared by the [place] FDA. When there are no FDA-approved or cleared tests available, and other criteria are met, FDA can make tests available under an emergency access mechanism called an Emergency Use Authorization (EUA). The EUA for this test is supported by the [employer] of Health and Human Service's (HHS's) declaration [...] Performed By: #### C VDTB ####[facility] [address] [place], [place] [address]LfDr. Holly Fisher Covid-19 PCR ([facility])on 07-28 SARS-CoV-2 (COVID-19) RNA FRED+probe Ql (Unsp spec) Not detected Normal NOT DETECTED [facility] Comment on above: Result Comment: This test is not yet approved or cleared by the [place] FDA. When there are no FDA-approved or cleared tests available, and other criteria are met, FDA can make tests available under an emergency access mechanism called an Emergency Use Authorization (EUA). The EUA for this test is supported by the [place] of Health and Human Service's (HHS's) declaration [...] By: #### C VDTB #### [facility] [address] [place], [place] [address] Dr. Holly Fisher CALCIUMon 06-12-2022 Calcium [Mass/Vol] 9.0 mg/dL Normal 8.5-10.1 [facility] Comment on above: Performed By: #### C JUAN PABLO, CA ####[facility] [address] [place], [place] [address]OdDr. Holly Fisher CREATININEon 06-12-2022 Creatinine [Mass/Vol] 0.65 mg/dL Normal 0.55-1.02 [facility] Comment on above: Performed By: #### XAVIER HOOD #### [facility] [address] [place] [address] [address] Holly Fisher EGFR-AF KENYAN >60 Normal >=60 [facility] Comment on above: Performed By: #### XAVIER HOOD #### [facility] [address] [place] [address] [address] Holly Fisher EGFR-NON AF KENYAN >60 Normal >=60 [facility] Comment on above: Performed By: #### XAVIER HOOD #### [facility] [address] [place] [address] [address] Holly Fisher XR LSPINE W_OBLS AND [...] Date: 2022-05-04 08:47 Normal [facility] CBC AUTO DIFFon 03-05-2022 BASO # 0.1 103/ul Normal 0.0-0.1 [facility] Comment on above: Performed By: #### C ANGELI ####[facility] [address] [place] [address]Dr. Holly Fisher Basophils/100 WBC (Bld) 1.0 % Normal 0.2-2.0 [facility] Comment on above: Performed By: #### C ANGELI ####[facility] [address] [place] [address]Dr. Holly Fisher EO # 0.2 103/ul Normal 0.0-0.7 [facility] Comment on above: Performed By: #### C BC ####[facility] [address] [place], [place] [address]Dr. Holly Fisher Eosinophils/100 WBC (Bld) 2.4 % Normal 0.9-7.0 [facility] Comment on above: Performed By: #### C BC ####[facility] [address] [place], [place] [address]Dr. Holly Fisher Erythrocyte distribution width (RBC) [Ratio] 14.4 % Normal 11.0-15.0 [facility] Comment on above: Performed By: #### C BC ####[facility] [address] [place], [place] [address]Dr. Holly Fisher Hematocrit (Bld) [Volume fraction] 41.1 % Normal 36.0-48.0 [facility] Comment on above: Performed By: #### C BC ####[facility] [address] [place], [place] [address]Dr. Holly Fisher Hemoglobin (Bld) [Mass/Vol] 13.4 g/dL Normal 12.0-16.0 [facility] Comment on above: Performed By: #### C BC ####[facility] [address] [place], [place] [address]Dr. Holly Fisher IG # 0.03 10e3/ul Normal 0.00-0.03 [facility] Comment on above: Performed By: #### C BC ####[facility] [address] [place], [place] [address]Dr. Holly Fisher IG % 0.5 % Normal 0.0-0.5 [facility] Comment on above: Performed By: #### C BC ####[facility] [address] [place], [place] [address]Dr. Holly Fisher LYMPH # 1.5 103/ul Normal 1.2-3.8 [facility] Comment on above: Performed By: #### C BC ####[facility] [address] [place] [address]Dr. Lindaban Fisher Lymphocytes/100 WBC (Bld) 24.3 % Normal 20.5-60.0 [facility] Comment on above: Performed By: #### C BC ####[facility] [address] [place] [address]Dr. Lindaban Fisher MANUAL DIFF REQ NO Normal [facility] Comment on above: Performed By: #### C BC ####[facility] [address] [place] [address]Dr. Lindaban Fisher MCH (RBC) [Entitic mass] 30.3 pg Normal 26.7-34.0 [facility] Comment on above: Performed By: #### C BC ####[facility] [address] [place], [place] [address]Dr. Lindaban Fisher MCHC (RBC) [Mass/Vol] 32.6 g/dL Normal 29.9-35.2 [facility] Comment on above: Performed By: #### C BC ####[facility] [address] [place], [place] [address]Dr. Holly Fisher MCV (RBC) [Entitic vol] 93.0 fL Normal 81.0-99.0 [facility] Comment on above: Performed By: #### C BC ####[facility] [address] [place], [place] [address]Dr. Holly Fisher MONO # 0.5 103/ul Normal 0.3-0.8 [facility] Comment on above: Performed By: #### C BC ####[facility] [address] [place], [place] [address]Dr. Holly Fisher Monocytes/100 WBC (Bld) 7.3 % Normal 1.7-12.0 [facility] Comment on above: Performed By: #### C BC ####[facility] [address] [place], [place] [address]Dr. Holly Fisher NEUT # 4.1 103/ul Normal 1.4-6.5 [facility] Comment on above: Performed By: #### C BC ####[facility] [address] [place], [place] [address]Dr. Holly Fisher Neutrophils/100 WBC (Bld) 64.5 % Normal 43.0-75.0 [facility] Comment on above: Performed By: #### C BC ####[facility] [address] [place] [id number]. Holly Fisher Platelet mean volume (Bld) [Entitic vol] 10.5 fL Normal 9.5-13.5 [facility] Comment on above: Performed By: #### C BC ####[facility] [address] [place] [id number]. Holly Fisher PLT 253 103/ul Normal 150-450 [facility] Comment on above: Performed By: #### C BC ####[facility] [address] [place] [address]Dr. Holly Fisher RBC 4.42 106/ul Normal 4.20-5.40 [facility] Comment on above: Performed By: #### C BC ####[facility] [address] [place] [address]Dr. Holly Fisher WBC 6.3 103/ul Normal 4.0-11.0 [facility] Comment on above: Performed By: #### C BC ####[facility] [address] [place] [address]Dr. Holly Fisher LIPID PROFILEon 03-05-2022 CHOL-HDL RATIO NORM SEE BELOW Normal [facility] Comment on above: Result Comment: 3.3 - 4.4 LOW RISK 4.4 - 7.1 AVERAGE RISK 7.1 - 11.0 MODERATE RISK >11.0 HIGH RISK Performed By: #### L IPID, CMP #### [facility] [address] [place] [address] [address] Holly Fisher Cholesterol [Mass/Vol] 263 mg/dL Critically high <=200 [facility] Comment on above: Performed By: #### L IPID, CMP #### [facility] [address] [place] [address] [address] Holly Fisher Cholesterol in HDL [Mass/Vol] 63 mg/dL Critically high 40-60 [facility] Comment on above: Performed By: #### L IPID, CMP #### [facility] [address] [place] [address] [address] Holly Fisher Cholesterol in LDL [Mass/Vol] 160.2 mg/dL Normal [facility] Comment on above: Performed By: #### L IPID, CMP #### [facility] [address] [place] [address] Dr. Holly Fisher Cholesterol.total/ Cholesterol in HDL [Mass ratio] 4.2 {ratio} Normal [facility] Comment on above: Performed By: #### L IPID, CMP #### [facility] [address] [place] [address] [address] Holly Fisher HDL NORMAL > or = 60 mg/dl - LO W CARDIOVASCULAR RISK <40 mg/dl - HIGH CARDIOVASCULAR RISK Normal [facility] Comment on above: Performed By: #### L IPID, CMP #### [facility] [address] [place] [address] Dr. Holly Fisher LDL CALC NORMAL SEE BELOW Normal [facility] Comment on above: Result Comment: <100 mg/dl OPTIMAL 100 - 129 mg/dl NEAR OR ABOVE OPTIMAL 130 - 159 mg/dl BORDERLINE HIGH 160 - 189 mg/dl HIGH >190 mg/dl VERY HIGH Performed By: #### L IPID, CMP #### [facility] [address] [place] [address] Dr. Holly Fisher Triglyceride [Mass/Vol] 199 mg/dL Critically high <=150 [facility] Comment on above: Performed By: #### L IPID, CMP #### [facility] [address] [place] [address] Dr. Holly Fisher VLDL CALC 39.8 mg/dL Normal [facility] Comment on above: Performed By: #### L IPID, CMP #### [facility] [address] [place] [address] Dr. Holly Fisher MG MAMM SCREEN 3D SHERRIE CADon 03-05-2022 MG MAMM SCREEN 3D SHERRIE CAD Patient: LETTY COFFEY Exam Date: 03/05/2022 : 1945 Gender:F Ordering : DR LUIS THOMAS M.D. Admission #: [id number] Family : Order #: [id number] CLICK HERE TO VIEW EXAM RADIOLOGY REPORT [...] Family Cancers None LOCATION: [facility] BREAST COMPOSITION: Scattered areas fibroglandular density. [...] Ortiz MD on 03/05/2022 at 09:55 Normal [facility] PROF 14(COMP METB)on 022 Albumin [Mass/Vol] 3.9 g/dL Normal 3.4-5.0 [facility] Comment on above: Performed By: #### L IPID, CMP #### [facility] [address] [place] [address] Dr. Holly Fisher Albumin/Globulin [Mass ratio] 1.1 {ratio} Normal [facility] Comment on above: Performed By: #### L IPID, CMP #### [facility] [address] [place] [address] [address] Holly Fisher ALP [Catalytic activity/Vol] 54 U/L Normal 46-116 [facility] Comment on above: Performed By: #### L IPID, CMP #### [facility] [address] [address] [address] Holly Fisher ALT [Catalytic activity/Vol] 22 U/L Normal 14-59 [facility] Comment on above: Performed By: #### L IPID, CMP #### [facility] [address] [address] [address] Holly Fisher Anion gap [Moles/Vol] 12.5 mmol/L Normal [facility] Comment on above: Performed By: #### L IPID, CMP #### [facility] [address] [address] [address] Holly Fisher AST [Catalytic activity/Vol] 14 U/L Critically low 15-37 [facility] Comment on above: Performed By: #### L IPID, CMP #### [facility] [address] [address] [address] Holly Fisher Bilirubin [Mass/Vol] 0.4 mg/dL Normal 0.2-1.0 [facility] Comment on above: Performed By: #### L IPID, CMP #### [facility] [address] [place] [address] Dr. Holly Fisher Calcium [Mass/Vol] 8.6 mg/dL Normal 8.5-10.1 [facility] Comment on above: Performed By: #### L IPID, CMP #### [facility] [address] [address] [address] Holly Fisher Chloride [Moles/Vol] 106 mmol/L Normal 98-107 [facility] Comment on above: Performed By: #### L IPID, CMP #### [facility] [address] [place] [address] Dr. Holly Fisher CO2 [Moles/Vol] 26.8 mmol/L Normal 21.0-32.0 [facility] Comment on above: Performed By: #### L IPID, CMP #### [facility] [address] [address] [address] Holly Fisher Creatinine [Mass/Vol] 0.60 mg/dL Normal 0.55-1.02 [facility] Comment on above: Performed By: #### L IPID, CMP #### [facility] [address] [address] [address] Holly Fisher EGFR-AF KENYAN >60 Normal >=60 [facility] Comment on above: Performed By: #### L IPID, CMP #### [facility] [address] [address] [address] Holly Fisher EGFR-NON AF KENYAN >60 Normal >=60 [facility] Comment on above: Performed By: #### L IPID, CMP #### [facility] [address] [address] [address] Holly Fisher Globulin (S) [Mass/Vol] 3.4 g/dL Normal [facility] Comment on above: Performed By: #### L IPID, CMP #### [facility] [address] [address] [address] Holly Fisher Glucose [Mass/Vol] 98 mg/dL Normal 74-106 [facility] Comment on above: Performed By: #### L IPID, CMP #### [facility] [address] [place] [address] Dr. Holly Fisher Potassium [Moles/Vol] 4.3 mmol/L Normal 3.5-5.1 [facility] Comment on above: Performed By: #### L IPID, CMP #### [facility] [address] [place] [address] Dr. Holly Fisher Protein [Mass/Vol] 7.3 g/dL Normal 6.4-8.2 [facility] Comment on above: Performed By: #### L IPID, CMP #### [facility] [address] [place] [address] Dr. Holly Fisher Sodium [Moles/Vol] 141 mmol/L Normal 136-145 [facility] Comment on above: Performed By: #### L IPID, CMP #### [facility] [address] [address] [address] Holly Fisher Urea nitrogen [Mass/Vol] 14.0 mg/dL Normal 7.0-18.0 [facility] Comment on above: Performed By: #### L IPID, CMP #### [facility] [address] [place] [address] Dr. Holly Fisher Urea nitrogen/Creatinin e [Mass ratio] 23.3 mg/mg Normal [facility] Comment on above: Performed By: #### L IPID, CMP #### [facility] [address] [place] [address] Dr. Holly Fisher XR DEXA BONE DENSITYon [...] by: YOUSUF ORTIZ Date: 2022-03-05 10:00 Normal [facility] History and Physicalon 04-27 HIM IP Note OR Equipment Monitor Phototypesetting Normal [facility] OPERATIVE REPORTon 7 [facility]Y : 49[facility] REC NO: [id number] ROOM:ACCOUNT NO: [id number] ADMISSION DATE: 04/27/17PHYSICIAN: EMRE STAPLETONDATE OF PROCEDURE: [...] used to engage the membrane in a [id number]-enz-zgdw technique andthe membrane was elevated from the [...] well without complications.EMRE Llanes DABSHAVOND:04/27/2017 9:59:31 CD/[id number]_VGPRS_TJob#: [id number] Doc#: [id number] [facility] Vital Signs Date Time Vital Sign Value Performing Clinician Facility 05-24-2025 10:16-0400 Body weight 68.04 kg Kriss Velez DO Work Phone: [facility] 05-24-2025 10:16-0400 Diastolic blood pressure 70 mm[Hg] Kriss Velez DO Work Phone: [facility] [employer] 05-24-2025 10:16-0400 Systolic blood pressure 120 mm[Hg] Kriss Velez DO Work Phone: [facility] [employer] 06-30-2023 09:15-0400 Body height 158.75 cm Luis Thomas Other [facility] 06-30-2023 09:15-0400 Body mass index (BMI) [Ratio] 30.95 kg/m2 Luis Thomas Other [facility] 06-30-2023 09:15-0400 Body temperature 96.5 [degF] Luis Thomas Other [facility] 06-30-2023 09:15-0400 Body weight 78.02 kg Luis Thomas Other [facility] 06-30-2023 09:15-0400 Diastolic blood pressure 76 mm[Hg] Luis Thomas Other [facility] 06-30-2023 09:15-0400 Systolic blood pressure 156 mm[Hg] Luis Thomas Other [facility] 04-13-2023 15:00-0400 Body height 158.75 cm Luis Thomas Other [facility] 04-13-2023 15:00-0400 Body mass index (BMI) [Ratio] 31.49 kg/m2 Luis Thomas Other [facility] 04-13-2023 15:00-0400 Body weight 79.38 kg Luis Thomas Other [facility] 04-13-2023 15:00-0400 Diastolic blood pressure 78 mm[Hg] Luis Thmoas Other [facility] 04-13-2023 15:00-0400 Systolic blood pressure 135 mm[Hg] Luis Thomas Other [facility] Other 03-18-2023 08:40-0400 Body height 158.75 cm Ej Thomas Other [facility] Other 03-18-2023 08:40-0400 Body mass index (BMI) [Ratio] 31.67 kg/m2 Ej Thomas Other [facility] Other 03-18-2023 08:40-0400 Body weight 79.83 kg Ej Thomas Other [facility] Other 03-18-2023 08:40-0400 Diastolic blood pressure 84 mm[Hg] Ej Thomas Other [facility] Other 03-18-2023 08:40-0400 Systolic blood pressure 134 mm[Hg] Ej Thomas Other [facility] Other 01-21-2023 11:00-0400 Body height 158.75 cm Luis Thomas Other [facility] Other 01-21-2023 11:00-0400 Body mass index (BMI) [Ratio] 32.21 kg/m2 Luis Thomas Other [facility] Other 01-21-2023 11:00-0400 Body weight 81.19 kg Luis Thomas Other [facility] Other 01-21-2023 11:00-0400 Diastolic blood pressure 82 mm[Hg] Luis Thomas Other [facility] Other 01-21-2023 11:00-0400 SaO2% (BldA) [Mass fraction] 97 % Luis Martha Other [facility] Other 01-21-2023 11:00-0400 Systolic blood pressure 142 mm[Hg] Luis Thomas Other [facility] Other Encounters Encounter Date Encounter Type Care Provider Facility Start: 05-30-2025 End: 05-30-2025 Bamboo flowsheet Dusty Nassar DO Work Phone: [facility] Start: 05-30-2025 End: 05-30-2025 Bamboo flowsheet Dusty Nassar DO Work Phone: [facility] Start: 05-30-2025 End: 05-30-2025 Follow-up encounter Dusty Nassar DO Work Phone: [facility] Comment on above: Follow-up; Retinal I njection Start: 05-30-2025 End: 05-30-2025 ambulatory DUSTY NASSAR Not Available Start: 05-24-2025 End: 05-24-2025 Bamboo flowsheet Kriss E Rinkes DO Work Phone: [facility] Start: 05-24-2025 End: 05-24-2025 Bamboo flowsheet Kriss E Rinkes DO Work Phone: [facility] Start: 05-24-2025 End: 05-24-2025 Office outpatient visit 25 minutes Kriss E Rinkes DO Work Phone: [facility] Comment on above: Vaginal atrophy (Maggie genna Dx); Encounter for screening mammogram for breast cancer; Cystocele, midline Start: 05-24-2025 End: 05-24-2025 ambulatory KRISS VELEZ Not Available Start: 05-23-2025 End: 05-23-2025 Bamboo flowsheet Dusty Nassar DO Work Phone: [facility] Start: 05-23-2025 End: 05-23-2025 Bamboo flowsheet Dusty Nassar DO Work Phone: [facility] Start: 05-23-2025 End: 05-23-2025 Clinical Support Dusty Nassar DO Work Phone: [facility] Comment on above: Retinal Injection; M acular Degeneration Start: 04-18-2025 End: 04-18-2025 Bamboo flowsheet Dusty Nassar DO Work Phone: [facility] Start: 04-18-2025 End: 04-18-2025 Bamboo flowsheet Dusty Nassar DO Work Phone: [facility] Start: 04-18-2025 End: 04-18-2025 Clinical Support Dusty Nassar DO Work Phone: [facility] Comment on above: Retinal Injection; M acular Degeneration Start: 03-07-2025 End: 03-07-2025 Bamboo flowsheet Dusty Nassar DO Work Phone: [facility] Start: 03-07-2025 End: 03-07-2025 Bamboo flowsheet Dusty Nassar DO Work Phone: [facility] Start: 03-07-2025 End: 03-07-2025 Follow-up encounter Dusty Nassar DO Work Phone: [facility] Comment on above: Follow-up; Macular D egeneration Start: 03-07-2025 End: 03-07-2025 ambulatory DUSTY NASSAR Not Available Start: 02-28-2025 End: 02-28-2025 Bamboo flowsheet Dusty Nassar DO Work Phone: [facility] Start: 02-28-2025 End: 02-28-2025 Bamboo flowsheet Dusty Nassar DO Work Phone: [facility] Start: 02-28-2025 End: 02-28-2025 Clinical Support Dusty Nassar DO Work Phone: [facility] Comment on above: Retinal Injection Start: 02-26-2025 End: 02-26-2025 ambulatory Andrius Vytautas Giedraitis Facility:[facility] Start: 01-29-2025 End: 01-29-2025 ambulatory Andrius Vytautas Giedraitis Facility:[facility] Start: 01-15-2025 End: 01-15-2025 ambulatory Andrius Vytautas Giedraitis Facility:[facility] Start: 12-06-2024 End: 12-06-2024 ambulatory DUSTY NASSAR Not Available Start: 10-02-2024 End: 10-02-2024 ambulatory Andrius Vytautas Giedraitis Facility:[facility] Start: 09-26-2024 End: 09-26-2024 Bamboo flowsheet Dusty [...] 09-25-2024 End: 09-25-2024 ambulatory Andrius Vytautas Giedraitis Facility:[facility] Start: 09-18-2024 End: 09-18-2024 ambulatory Andrius Vytautas Giedraitis MD Facility:[facility] Start: 09-11-2024 End: 09-11-2024 ambulatory Gianna Kelley MD Facility:[facility] Start: 08-21-2024 End: 08-21-2024 ambulatory Gianna Kelley MD Facility:[facility] Start: 07-25-2024 End: 07-25-2024 Bamboo flowsheet Dusty [...] DO Work Phone: [facility] Start: 06-30-2023 End: 06-30-2023 ambulatory Luis Thomas Other [facility] Other Start: 06-30-2023 Office outpatient vi sit 15 minutes Luis Thomas [facility] Start: 05-18-2023 End: 05-18-2023 ambulatory Luis Thomas Other [facility] Other Start: 05-18-2023 Telephone encounter Luis Thomas [facility] Start: 05-13-2023 End: 05-14-2023 ambulatory [facility] Start: 05-13-2023 End: 05-13-2023 ambulatory [facility] Start: 04-16-2023 End: 04-17-2023 ambulatory ALLISON MARSH [facility] Start: 04-13-2023 End: 04-13-2023 ambulatory Luis Thomas Other [facility] Other Start: 04-13-2023 Office outpatient vi sit 15 minutes Luis Thomas [facility] Start: 04-05-2023 End: 04-05-2023 ambulatory Ej Thomas Other [facility] Other Start: 04-05-2023 Telephone encounter Ej Thomas [facility] Start: 03-18-2023 End: 03-18-2023 ambulatory Ej Thomas Other [facility] Other Start: 03-18-2023 Office outpatient ne w 30 minutes Ej Thomas [facility] Start: 02-09-2023 End: 02-10-2023 ambulatory NARENDRANATH LAKSHMIPATHY . Facility:[facility] Start: 02-01-2023 ambulatory NARENDRANATH LAKSHMIPATHY . Facility:[facility] Start: 01-28-[address] LUIS THOMAS [facility] ity:[facility] Start: 01-28-2023 End: 01-29-2023 ambulatory NARENDRANATH LAKSHMIPATHY . Facility:[facility] Start: 01-21-2023 End: 01-21-2023 ambulatory Luis Thomas Other [facility] Other Start: 01-21-2023 Office outpatient vi sit 15 minutes Luis Thomas [facility] Start: 01-12-2023 End: 01-12-2023 ambulatory NARENDRANATH LAKSHMIPATHY . Facility:[facility] Start: 12-31-2022 End: 01-01-[address] LUIS THOMAS Facility:[facility] Start: 12-28-2022 End: 12-28-[address] LUIS THOMAS Facility:[facility] Start: 12-24-2022 End: 12-25-[address] LUIS THOMAS Facility:[facility] Start: 10-07-2022 End: 10-08-2022 ambulatory SHAWNA RUIZ . Facility:[facility] Start: 09-03-2022 Encounter for preprocedural laboratory examination DR YULI LEES . [facility] Start: 09-01-2022 End: 09-01-[address] YULI LEES . Facility:[facility] Start: 08-28-2022 End: 08-29-[address] LUIS THOMAS Facility:[facility] Start: 08-28-2022 End: 08-29-2022 Encounter for preprocedural laboratory examination DR LUIS THOMAS Facility:[facility] Start: 08-11-2022 End: 08-11-[address] YULI LEES . Facility:[facility] Start: 08-08-2022 Encounter for preprocedural cardiovascular examination SHAWNA RUIZ . [facility] Start: 08-07-2022 End: 08-08-[address] [...] End: 04-27-2017 Ambulatory EMRE STAPLETON [facility] Procedures Date Procedure Procedure Detail Performing Clinician Start: 05-30-2025 Intravitreal njx pharmacologic agt spx Dusty Nassar DO Work Phone: Start: 05-23-2025 Intravitreal njx pharmacologic agt spx Dusty Nassar DO Work Phone: Start: 05-23-2025 Computerized ophthalmic imaging retina Dusty Nassar DO Work Phone: Start: 04-18-2025 Intravitreal njx pharmacologic agt spx Dusty Nassar DO Work Phone: Start: 04-18-2025 Computerized ophthalmic imaging retina Dusty Nassar DO Work Phone: Start: 03-07-2025 Intravitreal njx pharmacologic agt spx Dusty Nassar DO Work Phone: Start: 02-28-2025 Intravitreal njx pharmacologic agt spx [...] DO Work Phone: Start: 05-30-2024 End: 05-30-2024 Ophth medical xm&eval comprhnsv estab pt 1/> Exudative [...] (SPECIFY) EMRE STAPLETON Start: 04-27-2017 NURSING COMMUNICATION Celia STAPLETON Start: 04-27-2017 NURSING OXYGEN ORDERS/INSTRUCTIONS EMRE STAPLETON Start: 04-27-2017 VITAL SIGNS EMRE BYNUM Management of drug regimen Luis Thomas Other Screening for malignant neoplasm of colon Luis Thomas Other Plan of Treatment Date Care Activity Detail Author Start: 06-05-2026 End: 06-05-2026 Patient encounter procedure 06/05/2026 10:15 AM EDT Office Visit [facility] [address] [place] [address] Kriss Velez DO [address] [place] [address] [facility] Start: 05-30-2025 End: 05-30-2025 Clinical Support [facility] Comment on above: Arrived Start: 05-28-2025 Influenza vaccination Influenza Vacc ine (#1) [facility] Start: 05-24-2025 End: 05-24-2025 Patient encounter procedure [facility] Comment on above: Vaginal atrophy; Encounter for screening mammogram for breast cancer Start: 05-23-2025 End: 05-23-2025 Clinical Support 05/23/2025 8:30 AM EDT Clinical Support [facility] [address] [place] [phone] Dusty Nassar, DO [address] [place] [address] Arrived [facility] Comment on above: Arrived Start: 04-18-2025 End: 04-18-2025 Clinical Support 04/18/2025 8:30 AM EDT Clinical Support [facility] [address] [place] [phone] Dusty Nassar, DO [address] [place] [address] Arrived [facility] Comment on above: Arrived Start: 03-07-2025 End: 03-07-2025 Clinical Support [facility] Comment on above: Arrived Start: 02-28-2025 End: 02-28-2025 Clinical Support 02/28/2025 9:15 AM EDT Clinical Support [facility] [address] [place] [id number] Dusty Nassar, DO [address] [place] [address] Arrived [facility] Comment on above: Arrived Start: 09-26-2024 End: 09-26-2024 Clinical Support 09/26/2024 9:00 AM EST Clinical Support [facility] [address] [place] [id number] Dusty Nassar, DO [address] [place] [address] Arrived [facility] Comment on above: Arrived Start: 07-25-2024 End: 07-25-2024 Clinical Support 07/25/2024 1:45 PM EDT Clinical Support [facility] [address] [place] [address] Dusty Nassar DO [address] [place] [address] Arrived [facility] Comment on above: Arrived Start: 05-30-2024 End: 05-30-2024 Clinical Support 05/30/2024 9:45 AM EDT [facility] [address] [place] [address] Dusty Nassar DO [address] [place] [address] Arrived [facility] Comment on above: Arrived Start: 05-28-2024 Influenza vaccination Influenza Vacc ine (#1) [facility] Start: 02-26-2023 ambulatory Ambulatory Facility: 1 DBT Breast - bilater al screening Bilateral screening mammogram with tomosynthesis Imaging Routine Encounter for screening mammogram for breast cancer Ordered: 05/24/2025 [facility] Work Phone: Comment on above: Ordered: 05/24/2025 Intravitreal Injection, Pharmacologic Agent - OD - Right Eye Intravitreal Injection, Pharmacologic Agent - OD - Right Eye Ophthalmology Routine 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 eye with active choroidal neovascularization (HCC) ([facility]/HCC) Ordered: 07/25/2024 [facility] Work Phone: Comment on above: Ordered: 07/25/2024 Intravitreal Injection, Pharmacologic Agent - OD - Right Eye Intravitreal Injection, Pharmacologic Agent - OD - Right Eye Ophthalmology Routine 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 eye with active choroidal neovascularization (HCC) ([facility]/HCC) Ordered: 05/30/2024 [facility] Work Phone: Comment on above: Ordered: 05/30/2024 Immunizations Immunization Date Immunization Notes Care Provider Fa cili 08-11-2024 influenza virus vacc ine, unspecified formulation Dusty Nassar DO Work Phone: [facility] 07-26-2023 influenza virus vacc ine, unspecified formulation Dusty Nassar DO Work Phone: [facility] Healthcare Payers Date Payer Category Payer Private Health Insurance [employer] [id number] 2025 Unknown [id number] 2018 [facility] BCBS [id number] 2018 Unknown [id number]. 1.13.693.2. [id number] 2017 Medicare [id number]. 1.13.693.2. [id number] 2014 Unknown [id number] 1959 [facility] [id number] 2.16.840.1.866215. 1959 Medicare [id number] ..[id number]. 1959 Unknown [id number] 1947 Unknown [id number] 2.16.840.1.487823.3.579.2. 593 1947 Unknown [id number] 2.16.840.1.370194.3.579.2. 593 1947 Unknown [id number] 2.16.840.1.159452.3.579.2. 593 1947 Unknown [id number] 2.16.840.1.390096.3.579.2. 593 1947 Unknown [id number] 2.16.840.1.461844.3.579.2. 593 1947 Unknown [id number] 2.16.840.1.785200.3.579.2. 593 1947 Unknown [id number] 2.16.840.1.608135.3.579.2. 593 1947 Unknown [id number] 2.16.840.1.203557.3.579.2. 593 1947 Unknown [id number] 2.16.840.1.186267.3.579.2. 593 1947 Unknown [id number] 2.16.840.1.889349.3.579.2. 593 1947 Unknown [id number] 2.16.840.1.088307.3.579.2. 593 1947 Unknown [id number] 2.16.840.1.194057.3.579.2. 593 1947 Unknown [id number] 2.16.840.1.362419.3.579.2. 593 1947 Unknown [id number] 2.16.840.1.297167.3.579.2. 593 1947 Unknown [id number] 2.16.840.1.091668.3.579.2. 593 1947 Unknown [id number] 2.16.840.1.749747.3.579.2. 593 1947 Unknown [id number] 2.16.840.1.323665.3.579.2. 593 1947 Unknown [id number] 2.16.840.1.631366.3.579.2. 593 1947 Unknown [id number] 2.16.840.1.391638.3.579.2. 593 1947 Unknown [id number] 2.16.840.1.003395.3.579.2. 593 1947 Unknown [id number] 2.16.840.1.400243.3.579.2. 593 1947 Unknown [id number] 2.16.840.1.045118.3.579.2. 593 1947 Unknown [id number] 2.16.840.1.631813.3.579.2. 593 1947 Unknown [id number] 2.16.840.1.609612.3.579.2. 593 1947 Unknown [id number] 2.16.840.1.794604.3.579.2. 593 1947 Unknown [id number] 2.16.840.1.828164.3.579.2. 196 1947 Unknown [id number] 2.16.840.1.633922.3.579.2. 196 1947 Unknown [id number] 2.16.840.1.338645.3.579.2. 196 1947 Unknown [id number] 2.16.840.1.446340.3.579.2. 196 1947 Unknown [id number] 2.16.840.1.836843.3.579.2. 196 1947 Unknown [id number] 2.16.840.1.992582.3.579.2. 196 1947 Unknown [id number] 2.16.840.1.690194.3.579.2. 196 1947 Unknown [id number] 2.16.840.1.941245.3.579.2. 196 1947 Unknown [id number] 2.16.840.1.010184.3.579.2. 1259 1947 Unknown [id number] 2.16.840.1.285174.3.579.2. 1259 1947 Unknown [id number] 2.16.840.1.206231.3.579.2. 1259 1947 Unknown [id number] 2.16.840.1.154704.3.579.2. 1259 1947 Unknown [id number] 2.16.840.1.810940.3.579.2. 1259 1947 Unknown [id number] 2.16.840.1.382702.3.579.2. 1259 1947 Unknown [id number] 2.16.840.1.986439.3.579.2. 1259 1947 Unknown [id number] 2.16.840.1.794249.3.579.2. 1259 1947 Unknown [id number] 2.16.840.1.882242.3.579.2. 1259 Social History Date Type Detail Facility Unknown if ever smoked [facility] Other Start: 05-30-2024 End: 05-30-2025 Sex Assigned At [facility] Other Start: 10-11-2023 Tobacco smoking status TXIS Never smoked tobacco [facility] Start: 10-11-2023 Tobacco use and exposure Smokeless tobacco non-user [facility] Start: 05-30-2024 End: 05-30-2025 History of Social function [facility] Start: 1945 Sex assigned at Not on file N [facility] Clinical Notes 03-05-2022 to 05-30-2025 Dusty Nassar, DO - 05/30/2025 8:45 AM EDTHueterrance Velez, DO - 05/24/2025 10:00 AM EDTDusty Nassar, DO - 05/23/2025 8:30 AM EDTDusty Nassar, DO - 04/18/2025 8:30 AM EDT Note Date & Type Note Facility 05-30-2025 Note Time Out 05/30/2025. 9:12 AM. Confirmed correct patient, procedure, site, and patient consented. Anesthesia Topical anesthesia was used. Anesthetic medications included Lidocaine 2%, Proparacaine 0.5%. Procedure Preparation included 5% betadine to ocular surface, eyelid speculum. A 30 gauge needle was used. Injection: 2 mg aflibercept 2 MG/0.05ML Route: Intravitreal, Site: Right Eye [facility]: 85389-028-76, Lot: [id number], Expiration date: 06/27/2026, Waste: 0 mL Post-op [...] pain, redness, decreased vision or concerns. [facility] 05-30-2025 History of Presen t illness Narrative Images [...] 2 MG/0.05ML Route: Intravitreal, Site: Right Eye [facility]: 23255-481-98, Lot: [id number], Expiration date: 06/27/2026, Waste: 0 mL Post-op [...] or concerns. documented in this encounter [facility] 05-24-2025 History of Presen t illness Narrative Images [...] Comments Pap smear 05/10/24 wnl Mammogram 08/11/24 [facility] [place] Review of Systems - General: Chills denies. [...] Review Audit Reviewed by Elizabeth Santiago MA ([employer]) on 05/24/25 at 1015 Medication Order Taking? Sig Documenting Provider Last Dose Status aspirin 81 MG EC tablet [id number] 1 (one) time each day at the same time Dusty Nassar DO Active baclofen (Lioresal) 10 MG tablet [id number] every 12 (twelve) hours Dusty Nassar DO Active calcium carbonate (Super Calcium) 1500 (600 Ca) MG tablet [id number] 1 tablet with meals Orally Once Dusty Nassar DO Active cefdinir (Omnicef) 300 MG capsule [id number] Take 300 mg by mouth in the morning and 300 mg before bedtime. Dusty Nassar DO Active cholecalciferol (Vitamin D3) 25 MCG (1000 UT) tablet [id number] 1 (one) time each day at the same time Dusty Nassar DO Active denosumab (Prolia) 60 MG/ML solution prefilled syringe [id number] as directed Subcutaneous Dusty Nassar DO Active Yvutfnuzyip-Xnrijifcgfq-AFY (Qbfhuw-Gcqhk-ITW-Double Str) 500-400-167 MG tablet [id number] every 12 (twelve) hours Dusty Nassar DO Active losartan (Cozaar) 25 MG tablet [id number] Oral for 90 Days Dusty Nassar DO Active Magnesium Glycinate 100 MG capsule [id number] 2 capsules 1 (one) time each day at the same time Dusty Nassar DO Active Menaquinone-7 (Vitamin K2) 100 MCG capsule [id number] as directed Orally Dusty Nassar DO Active Multiple Vitamins-Minerals (PreserVision AREDS 2) capsule 39651340 1 (one) time each day at the same time Dusty Nassar DO Active Multiple Vitamins-Minerals (Womens 50+ Multi Vitamin) tablet [id number] as directed Orally Dusty Nassar DO Active niacin 500 MG tablet [id number] 1 (one) time each day at the same time Dustyciaran Nassar DO Active [place]-3 Fatty Acids (Fish Oil) 1200 MG capsule delayed-release [id number] 1 capsule every 12 (twelve) hours Dusty Nassar DO Active traMADol (Ultram) 50 MG tablet [id number] TAKE 1 TABLET BY MOUTH TWICE A DAY NEEDED FOR PAIN MUST LAST 30 DAYS Dusty Nassar DO Active zonisamide (Zonegran) 50 MG capsule [id number] TAKE 3 CAPSULES BY MOUTH EVERY DAY AT BEDTIME Dusty Nassar DO Active Past Medical History: Diagnosis [...] to gross testing, coordination, and gait are normal or at baseline unless noted below. General Examination: [...] patient is to contact the office with any changes to her gynecological condition. The patient is to return in 1 year or as needed Discussed cystocele and modify activity, decrease heavy lifting. If becomes persistently bothersome, patient to call to further discuss management options. ICD-10-CM 1. Vaginal atrophy N95.2 2. Encounter for screening mammogram for breast cancer Z12.31 Bilateral screening mammogram with tomosynthesis 3. Cystocele, midline N81.11 documented in this encounter [facility] 05-23-2025 Note Time Out 05/23/2025. 9:11 AM. Confirmed correct patient, procedure, site, and patient consented. Anesthesia Topical anesthesia was used. Anesthetic medications included Lidocaine 2%, Proparacaine 0.5%. Procedure Preparation included 5% betadine to ocular surface, eyelid speculum. Injection: 2 mg aflibercept 2 MG/0.05ML Route: Intravitreal, Site: Left Eye [facility]: 52951-037-05, Lot: [id number], Expiration date: 06/27/2026, Waste: 0 mL Post-op [...] pain, redness, decreased vision or concerns. [facility] 05-23-2025 Note Right Eye Quality was good. Scan locations included subfoveal. Progression has improved. Findings include abnormal foveal contour, epiretinal membrane, pigment epithelial detachment. Left Eye Quality was good. Scan locations included subfoveal. Progression has been stable. Findings include normal observations. Notes Good scan with normal appearance left eye (OS) [facility] 05-23-2025 History of Presen t illness Narrative Images [...] 2 MG/0.05ML Route: Intravitreal, Site: Left Eye [facility]: 39146-146-03, Lot: [id number], Expiration date: 06/27/2026, Waste: 0 mL Post-op [...] or concerns. documented in this encounter [facility] 04-18-2025 Note Time Out 04/18/2025. 8:54 AM. Confirmed correct patient, procedure, site, and patient consented. Anesthesia Topical anesthesia was used. Anesthetic medications included Lidocaine 2%, Proparacaine 0.5%. Procedure Preparation included 5% betadine to ocular surface, eyelid speculum. A 30 gauge needle was used. Injection: 2 mg aflibercept 2 MG/0.05ML Route: Intravitreal, Site: Right Eye [facility]: 27327-908-96, Lot: [id number], Expiration date: 06/27/2025, Waste: 0 mL Post-op [...] pain, redness, decreased vision or concerns. [facility] 04-18-2025 Note Right Eye Quality was good. Scan locations included subfoveal. Progression has been stable. Findings include abnormal foveal contour, epiretinal membrane, pigment epithelial detachment. Left Eye Quality was good. Scan locations included subfoveal. Progression has been stable. Findings include abnormal foveal contour. [facility] 04-18-2025 History of Presen t illness Narrative Images from the original note were not included. Assessment/Plan Diagnoses and all orders for this visit: Exudative age-related macular 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 (HCC) - OCT, Retina - OU - Both Eyes - Intravitreal Injection, Pharmacologic Agent - OD [...] Linked Images Intravitreal Injection, Pharmacologic Agent - OD - Right Eye Time Out 04/18/2025. 8:54 AM. Confirmed correct patient, procedure, site, and patient consented. Anesthesia Topical anesthesia was used. Anesthetic medications included Lidocaine 2%, Proparacaine 0.5%. Procedure Preparation included 5% betadine to ocular surface, eyelid speculum. A 30 gauge needle was used. Injection: 2 mg aflibercept 2 MG/0.05ML Route: Intravitreal, Site: Right Eye [facility]: 92434-138-23, Lot: [id number], Expiration date: 06/27/2025, Waste: 0 mL Post-op [...] or concerns. documented in this encounter [facility] 03-07-2025 Note Time Out 03/07/2025. 1:19 PM. Confirmed correct patient, procedure, site, and patient consented. Anesthesia Topical anesthesia was used. Anesthetic medications included Lidocaine 2%, Proparacaine 0.5%. Procedure Preparation included 5% betadine to ocular surface, eyelid speculum. A 30 gauge needle was used. Injection: 2 mg aflibercept 2 MG/0.05ML Route: Intravitreal, Site: Right Eye [facility]: 13087-455-96, Lot: [id number], Expiration date: 03/27/2026, Waste: 0 mL Post-op [...] pain, redness, decreased vision or concerns. [facility] 03-07-2025 History of Presen t illness Narrative Images from the original note were not included. Assessment/Plan Diagnoses and all orders for this visit: Exudative age-related macular 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 ([facility]/HCC) - Intravitreal Injection, Pharmacologic Agent - OD - Right Eye - aflibercept (Eylea) syringe 2 mg Intravitreal Injection, Pharmacologic Agent - OD - Right Eye Time Out 03/07/2025. 1:19 PM. Confirmed correct patient, procedure, site, and patient consented. Anesthesia Topical anesthesia was used. Anesthetic medications included Lidocaine 2%, Proparacaine 0.5%. Procedure Preparation included 5% betadine to ocular surface, eyelid speculum. A 30 gauge needle was used. Injection: 2 mg aflibercept 2 MG/0.05ML Route: Intravitreal, Site: Right Eye [facility]: 17512-793-81, Lot: [id number], Expiration date: 03/27/2026, Waste: 0 mL Post-op [...] or concerns. documented in this encounter [facility] 03-05-2025 Note Right Eye Quality was good. Scan locations included subfoveal. Progression has worsened. Findings include intraretinal fluid, pigment epithelial detachment. Left Eye Quality was good. Scan locations included subfoveal. Progression has been stable. Findings include abnormal foveal contour. [facility] 02-28-2025 Note Time Out 02/28/2025. 10:00 AM. Confirmed correct patient, procedure, site, and patient consented. Anesthesia Topical anesthesia was used. Anesthetic medications included Lidocaine 2%, Proparacaine 0.5%. Procedure Preparation included 5% betadine to ocular surface, eyelid speculum. Injection: 2 mg aflibercept 2 MG/0.05ML Route: Intravitreal, Site: Left Eye [facility]: 74087-052-82, Lot: [id number], Expiration date: 03/27/2026, Waste: 0 mL Post-op [...] pain, redness, decreased vision or concerns. [facility] 02-28-2025 History of Presen t illness Narrative Images from the original note were not included. Assessment/Plan Diagnoses and all orders for this visit: 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 eye with active choroidal neovascularization ([facility]/HCC) - OCT, Retina - OU - Both [...] 2 MG/0.05ML Route: Intravitreal, Site: Left Eye [facility]: 47869-154-26, Lot: [id number], Expiration date: 03/27/2026, Waste: 0 mL Post-op [...] Very mild amount. documented in this encounter [facility] 09-26-2024 Note Time Out 09/26/2024. 9:37 AM. Confirmed correct patient, procedure, site, and patient consented. Anesthesia Topical anesthesia was used. Anesthetic medications included Lidocaine 2%, Proparacaine 0.5%. Procedure Preparation included 5% betadine to ocular surface, eyelid speculum. Injection: 2 mg aflibercept 2 MG/0.05ML Route: Intravitreal, Site: Left Eye [facility]: 47285-112-81, Lot: [id number], Expiration date: 12/26/2025, Waste: 0 mL Post-op [...] pain, redness, decreased vision or concerns. [facility] 09-26-2024 Note Right Eye Quality was good. Scan locations included subfoveal. Progression has been stable. Findings include abnormal foveal contour, epiretinal membrane, intraretinal fluid, pigment epithelial detachment. Left Eye Quality was good. Scan locations included subfoveal. Progression has been stable. Findings include normal observations. Notes Good scan with normal appearance left eye (OS) [facility] 09-26-2024 History of Presen t illness [...] 2 MG/0.05ML Route: Intravitreal, Site: Left Eye [facility]: 07737-488-71, Lot: [id number], Expiration date: 12/26/2025, Waste: 0 mL Post-op [...] or concerns. documented in this encounter [facility] 07-25-2024 Note Time Out 07/25/2024. 2:58 PM. Confirmed correct patient, procedure, site, and patient consented. Anesthesia Topical anesthesia was used. Anesthetic medications included Lidocaine 2%, Proparacaine 0.5%. Procedure Preparation included 5% betadine to ocular surface, eyelid speculum. Injection: 2 mg aflibercept 2 MG/0.05ML Route: Intravitreal, Site: Left Eye [facility]: 99161-843-79, Lot: [id number], Expiration date: 08/27/2025, Waste: 0 mL Post-op [...] pain, redness, decreased vision or concerns. [facility] 07-25-2024 Note Right Eye Quality was good. Scan locations included subfoveal. Progression has been stable. Findings include abnormal foveal contour, pigment epithelial detachment. Left Eye Quality was good. Scan locations included subfoveal. Progression has been stable. Findings include abnormal foveal contour. [facility] 07-25-2024 History of Presen t illness Narrative Images from the original note were not included. Assessment/Plan Diagnoses and all orders for this visit: 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 eye with active choroidal neovascularization ([facility]) - OCT, Retina - OU - [...] 2 MG/0.05ML Route: Intravitreal, Site: Left Eye [facility]: 96565-818-26, Lot: [id number], Expiration date: 08/27/2025, Waste: 0 mL Post-op [...] or concerns. documented in this encounter [facility] 05-30-2024 Note Time Out 05/30/2024. 10:38 AM. Confirmed correct patient, procedure, site, and patient consented. Anesthesia Topical anesthesia was used. Anesthetic medications included Lidocaine 2%, Proparacaine 0.5%. Procedure Preparation included 5% betadine to ocular surface, eyelid speculum. Injection: 1.25 mg bevacizumab 100 MG/4ML Route: Intravitreal, Site: Left Eye [facility]: 36086-723-47, Lot: [id number], Expiration date: 08/14/2024, Waste: 0 mL Post-op [...] pain, redness, decreased vision or concerns. [facility] 05-30-2024 Note Right Eye Quality was good. Scan locations included subfoveal. Progression has improved. Findings include abnormal foveal contour, intraretinal fluid, pigment epithelial detachment. Left Eye Quality was good. Scan locations included subfoveal. Progression has been stable. Findings include abnormal foveal contour. [facility] 05-30-2024 History of Presen t illness Narrative Images from the original note were not included. Assessment/Plan Diagnoses and all orders for this visit: 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 eye with active choroidal neovascularization (HCC) ([facility]/HCC) - OCT, Retina - OU - Both [...] 100 MG/4ML Route: Intravitreal, Site: Left Eye [facility]: 92431-673-88, Lot: [id number], Expiration date: 08/14/2024, Waste: 0 mL Post-op [...] MG/ML solution prefilled syringe as directed Subcutaneous Ugrviumsgwp-Oyaemptxhcz-CVM (Ijxfio-Lbeyr-AYI-Double Str) 500-400-167 MG tablet every 12 (twelve) [...] time each day at the same time [place]-3 Fatty Acids (Fish Oil) 1200 MG capsule [...] Normal Normal Refraction Wearing Rx Sphere Cylinder [place] Add Right +2.50 -2.00 077 +3.25 Left [...] laser capsulotomy, they are to notify their senior graduate advisor promptly if they have a significant change in symptoms, such as flashes of light (photopsia), an increase in floaters, loss of visual field or decrease in visual acuity. documented in this encounter [facility] 06-30-2023 Evaluation note Encounter Date Diagnosis Assessment Notes Jun, Acute non-recurrent maxillary sinusitis (ICD-10 - J01.00) Finish antibiotic, stay hydrated. Ok for NSAIDs for head pressure. Call if no improvement. [facility] Other 08-17-2023 NoteSUBJECTIVE: Chief complaint: Back and right leg pain. History of present illness: Consultation referred by pain management, Dr. Layton of [facility]. Patient reports chronic low back pain [...] found for any pre (more content not included)...[facility]08-17-2023 NoteSubjective: HPI: Letty Coffey is a 77 [...] and assess x-rays of back. [facility] Mckeon [facility]* Encounter Date Diagnosis [...] is busy with other appts right now. [facility] Other 06-22-2023 Evaluation note* Encounter Date Diagnosis [...] long as possible before considering surgical intervention. [facility] Other 05-04-2023 NoteCONSULTATION CONSULTATION DATE: 01/28/2023 TO: [...] our patients to inform us about any jcip-poj-nagsknm medications or herbal remedies/nutritional supplements/alternative remedies. 2. [...] with their primary care provider.[facility] [id number] Evaluation note * Encounter Date Diagnosis Assessment Notes Treatment Notes Treatment Clinical Notes Dec, Essential (primary) hypertension (ICD-10 - I10) new problem. rx handwritten. f/u 6 weeks. Dec, Other chronic pain (ICD-10 - G89.29) Dec, Pain in left shoulder (ICD-10 - M25.512) PT order given to pt. [facility] Other 04-06-2023 NoteCONSULTATION CONSULTATION DATE: 12/31/2022 TO: [...] our patients to inform us about any wxjk-uci-czkbvbg medications or herbal remedies/nutritional supplements/alternative remedies. 2. [...] with their primary care provider.[facility] [id number] Note CONSULTATION PROCEDURE DATE: 10/07/2022 PREOPERATIVE DIAGNOSIS: [...] Patient tolerated the procedure well.[facility] [id number] NoteCONSULTATION CONSULTATION DATE: 10/07/2022 HISTORY OF PRESENT [...] sitting does decrease her pain. Medications include mdxl-wky-zdtgkff Tylenol and the use of Salonpas patches. [...] Patient agrees with this plan.[facility] HospitalHsltyryq65-47-3223 NoteCONSULTATION CONSULTATION DATE: 07/30/2022 This is a [...] up at the office thereafter.[facility] HospitalMidugpzc66-68-3859 NoteCONSULTATION CONSULTATION DATE: 06/25/2022 HISTORY OF PRESENT [...] in agreement with this plan.[facility] [id number] NoteCONSULTATION CONSULTATION DATE: 05/19/2022 CHIEF COMPLAINT: Right [...] like to proceed. CC: Luis Thomas M.D.[facility] HospitalTahdqqzn84-61-4851 NoteCONSULTATION PROCEDURE DATE: 04/28/2022 PREOPERATIVE DIAGNOSIS: Right [...] followed up in the office.[facility] [id number] NoteCONSULTATION CONSULTATION DATE: 04/28/2022 CHIEF COMPLAINT: Right [...] like to proceed. CC: Luis Thomas M.D.[facility] [id number] NotePROCEDURE: XR HIP RT 2 3V W PELVIS COMPARISON: None. HISTORY: Arthropathy FINDINGS: BONES:No acute fracture or dislocation. Mild osteoarthropathy with marginal osteophyte formation. 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 No visible soft tissue swelling. EFFUSION:None visible. OTHER: Negative. 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 Electronically authenticated by: YOUSUF ORTIZ Date: 2022-03-05 10:09[facility] noteNo [employer] Other evaluation note* Diagnosis 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 eye with active choroidal neovascularization (CMS/HCC)- Primary documented in this encounter [facility]* Diagnosis 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 eye with active choroidal neovascularization (HCC) (CMS/HCC)- Primary Right posterior capsular opacification Unspecified after-cataract documented in this encounter [facility]* Diagnosis 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 eye with active choroidal neovascularization (CMS/HCC)- Primary documented in this encounter [facility]* Diagnosis 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 eye with active choroidal neovascularization (CMS/HCC)- Primary Exudative age-related macular 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 (CMS/HCC) documented in this encounter [facility]* Diagnosis Exudative age-related macular 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 (CMS/HCC)- Primary documented in this encounter [facility]* Diagnosis Exudative age-related macular 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 (HCC)- Primary documented in this encounter [facility]* Diagnosis 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 eye with active choroidal neovascularization (HCC)- Primary Vaginal atrophy Postmenopausal atrophic vaginitis Encounter for screening mammogram for breast cancer [facility]* Diagnosis Vaginal atrophy- Primary Postmenopausal atrophic vaginitis Encounter for screening mammogram for breast cancer Cystocele, midline [facility] encounter [facility] HealthcareHistory general [...] History COLONOSCOPY Hospitalization History SEE SURGICAL HX [facility] Other History general Narrative - Reported* Type [...] growth surgery Hospitalization History SEE SURGICAL HX [facility] Other Summary Purpose Family History No Family [...] and content) DATE CREATED AUTHOR 03/23/2018 [facility] DATE CREATED AUTHOR AUTHOR'S ORGANIZ ATION 02/10/2023 [facility] DATE CREATED AUTHOR AUTHOR'S ORGANIZ ATION 05/19/2023 [facility] DATE CREATED AUTHOR AUTHOR'S ORGANIZ ATION 03/21/2025 [facility] DATE CREATED AUTHOR AUTHOR'S ORGANIZ ATION 05/31/2025 [facility] d[facility] Specialists EPIC REASON FOR VISIT (unrecogniz ed section and content) Reason Comments Macular Degeneration Retinal Injection Reason Comments Follow-up Reason Comments Follow-up Retinal Injection Macular Degeneration Reason Comments Retinal Injection Reason Comments Follow-up Macular Degeneration Reason Comments Retinal Injection Macular Degeneration Reason Comments Gynecologic Exam Denies concerns. Pt states currently on antibiotic for UTI. Denies breast concerns. Denies vaginal bleeding/spotting. Reason Comments Follow-up Retinal Injection Care Teams (unrecognized sec tion and content) Outdoor Studies Professor Relationship Specialty Start Date End Date Wiley Price MD [address], [place] [phone] PCP - General Family Medicine 12/10/23 [place] [address] [place] [address] [phone] Referring Physician Family Medicine 10/15/23 Outdoor Studies Professor Relationship Specialty Start Date End Date Wiley Price MD [address] [place] [address] [phone] (Fax) PCP - General Family Medicine 12/10/23 [place] [address] [place] [address] [phone] Referring Physician Family Medicine 10/15/23 Outdoor Studies Professor Relationship Specialty Start Date End Date Wiley Price MD [address] [place] [address] [phone] PCP - General Family Medicine 12/10/23 Kimber Price MD [address] [place] [address] [phone] Referring Physician Family Medicine 10/15/23 Outdoor Studies Professor Relationship Specialty Start Date End Date Wiley Price MD [address] [place] [address] [phone] PCP - General Family Medicine 12/10/23 Kimber Price MD [address] [place] [address] [phone] Referring Physician Family Medicine 10/15/23 Outdoor Studies Professor Relationship Specialty Start Date End Date Wiley Price MD [address] [place] [phone] (Fax) PCP - General Family Medicine 12/10/23 [place] [address] [place] [address] [phone] Referring Physician Family Medicine 10/15/23 Outdoor Studies Professor Relationship Specialty Start Date End Date Wiley Price MD [address] [place] [address] (Fax) PCP - General Family Medicine 12/10/23 Kimber Price MD [address] [place] [address] [phone] Referring Physician Family Medicine 10/15/23 Outdoor Studies Professor Relationship Specialty Start Date End Date Wiley Price MD [address] [place] [address] (Fax) PCP - General Family Medicine 12/10/23 Kimber Price MD [address] [place] [phone] Referring Physician Family Medicine 10/15/23 Outdoor Studies Professor Relationship Specialty Start Date End Date Wiley Price MD [address] [place] [phone] (Fax) PCP - General Family Medicine 12/10/23 Kimber Pirce MD [address] [place] [address] [phone] Referring Physician Family Medicine 10/15/23 Outdoor Studies Professor Relationship Specialty Start Date End Date Wiley Price MD [address] [place] [address] PCP - General Family Medicine 12/10/23 [place] [address] [place] [address] [phone] Referring Physician Family Medicine 10/15/23 Outdoor Studies Professor Relationship Specialty Start Date End Date Wiley Price MD [address] [place] [address] PCP - General Family Medicine 12/10/23 [place] [address] [place] [address] [phone] Referring Physician Family Medicine 10/15/23 FOR RECORDS [...] THE PRIMARY CLINICAL RECORDS. [facility] [email or web address] [facility]. provides no warranty or guarantee of the accuracy or completeness of information in this document.
== END 2025-06-08 08:33 | disposition home or self-care (01) ==
LOC: PM 08:33
PROVIDERS: PCP Nurse Practitioner Family; Visit Provider Nurse Practitioner
DX: M46.1 Sacroiliitis, not elsewhere classified (principal); M48.062 Spinal stenosis, lumbar region with neurogenic claudication; Z79.891 Long term (current) use of opiate analgesic
CPT/HCPCS: G0463

== ENCOUNTER 2025-06-11 07:46 | Day surgery (SDC) | payer MEDICARE, OTHER, SELFPAY ==
--- OUTSIDE RECORDS SUMMARY | 2025-06-11 07:55 | XMS_ITS | CCD ---
Author Organization [facility] CliniSymd Care Team Providers Care Junk Dealer Name Role Phone EMRE STAPLETON Unavailable Unavailable [...] MARTHA, DR LUIS Becker Primary Care Unavailable HTOMAS, DR LUIS Becker Attending Unavailable THOMAS, DR [...] MARTHA, DR LUIS Becker Primary Care Unavailable DERRY, DR YOUSUF Ferguson Consulting Unavailable MARTHA, DR [...] LEES ., DR YULI Nguyen Attending Unavailable DERRY, DR YOUSUF Ferguson Consulting Unavailable THOMAS, DR [...] THOMAS, DR LUIS Becker Primary Care Unavailable URIZ ., SHAWNA Consulting Unavailable LEES ., DR [...] Wiley Price MD Primary Care Provider [phone] Wiley Price MD Primary Care Provider [phone] Gijose l PALM, Andrius Yo Attending Unavailable [...] ON FILE] Propensity to adverse reactions (disorder) [facility] Rep[facility] Medications Current Medications Medication Drug Class(es) [...] mg oral tablet (19 sources) Glucosamine-Eugene droitin-MSM (Ijhxik-Kopbe-WRG-Double Str) 500-400-167 MG tablet every 12 (twelve) hours Active 1 ml denosumab 60 mg/ml prefilled syringe (20 sources) RANK Ligand Inhibitor denosumab (Prolia) 6 0 MG/ML solution prefilled syringe as directed Subcutaneous Active Fish Oils (5 sources) take 1 capsule by mouth once daily Fish Oil 1000 MG 1 capsule Orally Once a day Active Rvlvey-Cxil-BAZ-Ca-C-CtCl -SeCu - (5 sources) Raqkpf-Rpsj-XCD- Lv-E-RlTj-SeCu - as directed Orally Active losartan potassium [...] each day at the same time Active Peconic-3 Fatty Acids (Fish Oil) 1200 MG capsule delayed-release (19 sources) take 1 capsule by mouth every twelve hours Peconic-3 Fatty Acids (Fish Oil) 1200 MG capsule [...] 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; Translations: [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] Onset: 03-12-2022 Episodic Other [...] Agent - OD - Right Eyeon 05-30-2025 [facility] Radiology Study observation (narrative) [facility] Left eye Ophthalmologic chata tmenton 05-23-2025 [facility] Radiology Study observation (narrative) [facility] Optical coherence tomography study reporton 05-23-2025 [facility] Radiology Study observation (narrative) [facility] Intravitreal Injection, Phar macologic Agent - OD - Right Eyeon 04-18-2025 [facility] Radiology Study observation (narrative) [facility] Optical coherence tomography study reporton 04-18-2025 [facility] Radiology Study observation (narrative) [facility] Intravitreal Injection, Phar macologic Agent - OD - Right Eyeon 03-07-2025 [facility] Radiology Study observation (narrative) [facility] Optical coherence tomography study reporton 03-05-2025 [facility] Left eye Ophthalmologic chata tmenton 02-28-2025 [facility] Radiology Study observation (narrative) [facility] Optical coherence tomography study reporton 02-28-2025 Radiology Study observation (narrative) [facility] Left eye Ophthalmologic chata tmenton 09-26-2024 [facility] Radiology Study observation (narrative) [facility] Optical coherence tomography study reporton 09-26-2024 [facility] Radiology Study observation (narrative) [facility] Left eye Ophthalmologic chata tmenton 07-[facility] (narrative) [facility] Optical coherence tomography study reporton 07-25-2024 [facility] Radiology Study observation (narrative) [facility] Left eye Ophthalmologic chata tmenton 05-30-2024 [facility] Radiology Study observation (narrative) [facility] Optical coherence tomography study reporton 05-30-2024 [facility] Radiology Study observation (narrative) [facility] 36on 05-17-2023 36 Spoke [...] refer her to someone who does SCS. [facility] 36on 05-14-2023 36 Left message for [...] back on Wednesday to follow-up regarding this. [facility] Telephoneon 05-14-2023 Telephone [phone] [id number] F Date Provider Department Center 05/14/2023 [facility] Second Fl Family History Problem Relation Age of Onset Other Mother Stomach cancer Father Family Status - Relation Status Age at Mother Father [facility] Consulton 05-13-2023 Consult [id number] F Date Provider Department Center 05/13/2023 148ELICEO, [facility] SURG Second Fl Family History Problem Relation Age of Onset Other Mother Stomach cancer Father Family Status - Relation Status Age at Mother Father Level of Service:52131 [place] OFFICE/OUTPATIENT NEW MODERATE MDM 45-59 MINUTES Reason for Visit and Comments: Consult [334] - Pt is here for a CO visit for Spinal Stenosis. 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 Imaging requested from Rain. [facility] MRI LSPINE WO CONon 02-11-20 MRI [...] OFE COFFEY Date: 2023-02-10 07:16 Normal [facility] CALCIUMon 12-24-2022 Calcium [Mass/Vol] 9.7 mg/dL Normal 8.5-10.1 [facility] Comment on above: Performed By: #### C Dora, CREA ####[facility] [address] [place] [address]Dr. Holly Fisher CREATININEon 12-24-2022 Creatinine [Mass/Vol] 0.62 mg/dL Normal 0.55-1.02 [facility] Comment on above: Performed By: #### C Dora, CREA ####[facility] [address] [place] [address]Dr. [facility] EGFR-AF ANGOLAN >60 Normal >=60 [facility] Comment on above: Performed By: #### C Dora, CREA ####[facility] [address] [place] [id number]. [facility] EGFR-NON AF ANGOLAN >60 Normal >=60 [facility] Comment on above: Performed By: #### C A, CREA ####[facility] [address] [place] [address]Dr. Holly Fisher [facility]on SARS-CoV-2 (COVID-19) RNA FRED+probe Ql (Unsp spec) Not detected Normal NOT DETECTED [facility] Comment on above: Result Comment: This test is not yet approved or cleared by the [place] FDA. When there are no FDA-approved or cleared tests available, and other criteria are met, FDA can make tests available under an emergency access mechanism called an Emergency Use Authorization (EUA). The EUA for this test is supported by the Print Controller of Health and Human Service's (HHS's) declaration [...] with SARS-CoV-2. Performed By: #### C VDTB ####[facility] [address] [place], [place] [address]NdDr. Holly Fisher Covid-19 PCR ([facility])on 07-28 SARS-CoV-2 (COVID-19) RNA FRED+probe Ql (Unsp spec) Not detected Normal NOT DETECTED [facility] Comment on above: Result Comment: This test is not yet approved or cleared by the [place] FDA. When there are no FDA-approved or cleared tests available, and other criteria are met, FDA can make tests available under an emergency access mechanism called an Emergency Use Authorization (EUA). The EUA for this test is supported by the [place] of Health and Human Service's (HHS's) declaration [...] SARS-CoV-2. Performed By: #### C VDTB #### [facility] [address] [place], [place] [address] Dr. Holly Fisher CALCIUMon 06-12-2022 Calcium [Mass/Vol] 9.0 mg/dL Normal 8.5-10.1 [facility] Comment on above: Performed By: #### C JUAN PABLO, [place] ####[facility] [address] [place], [place] [address]OrDr. Holly Fisher CREATININEon 06-12-2022 Creatinine [Mass/Vol] 0.65 mg/dL Normal 0.55-1.02 [facility] Comment on above: Performed By: #### XAVIER HOOD #### [facility] [address] [place] [address] [address] Holly Fisher EGFR-AF ANGOLAN >60 Normal >=60 [facility] Comment on above: Performed By: #### XAVIER HOOD #### [facility] [address] [place] [address] [address] Holly Fisher EGFR-NON AF ANGOLAN >60 Normal >=60 [facility] Comment on above: Performed By: #### XAVIER HOOD #### [facility] [address] [place] [address] [address] Holly Fisher XR LSPINE W_OBLS AND [...] YOUSUF ORTIZ Date: 2022-05-04 08:47 Normal [facility] CBC AUTO DIFFon 03-05-2022 BASO # 0.1 103/ul Normal 0.0-0.1 [facility] Comment on above: Performed By: #### C ANGELI ####[facility] [address] [place] [address]Dr. Holly Fisher Basophils/100 WBC (Bld) 1.0 % Normal 0.2-2.0 [facility] Comment on above: Performed By: #### C ANGELI ####[facility] [address] [place] [address]Dr. Holly Fisher EO # 0.2 103/ul Normal 0.0-0.7 [facility] Comment on above: Performed By: #### C BC ####[facility] [address] [place], [place] [address]Dr. Holly Fisher Eosinophils/100 WBC (Bld) 2.4 % Normal 0.9-7.0 [facility] Comment on above: Performed By: #### C BC ####[facility] [address] [place], [place] [address]Dr. Holly Fisher Erythrocyte distribution width (RBC) [Ratio] 14.4 % Normal 11.0-15.0 [facility] Comment on above: Performed By: #### C BC ####[facility] [address] [place], [place] [address]Dr. Holly Fisher Hematocrit (Bld) [Volume fraction] 41.1 % Normal 36.0-48.0 [facility] Comment on above: Performed By: #### C BC ####[facility] [address] [place], [place] [address]Dr. Holly Fisher Hemoglobin (Bld) [Mass/Vol] 13.4 g/dL Normal 12.0-16.0 [facility] Comment on above: Performed By: #### C BC ####[facility] [address] [place], [place] [address]Dr. Holly Fisher IG # 0.03 10e3/ul Normal 0.00-0.03 [facility] Comment on above: Performed By: #### C BC ####[facility] [address] [place], [place] [address]Dr. Holly Fisher IG % 0.5 % Normal 0.0-0.5 [facility] Comment on above: Performed By: #### C BC ####[facility] [address] [place], [place] [address]Dr. Holly Fisher LYMPH # 1.5 103/ul Normal 1.2-3.8 [facility] Comment on above: Performed By: #### C BC ####[facility] [address] [place] [address]Dr. Lindaban Fisher Lymphocytes/100 WBC (Bld) 24.3 % Normal 20.5-60.0 [facility] Comment on above: Performed By: #### C BC ####[facility] [address] [place] [address]Dr. Lindaban Fisher MANUAL DIFF REQ NO Normal [facility] Comment on above: Performed By: #### C BC ####[facility] [address] [place] [address]Dr. Lindaban Fisher MCH (RBC) [Entitic mass] 30.3 pg Normal 26.7-34.0 [facility] Comment on above: Performed By: #### C BC ####[facility] [address] [place], [place] [address]Dr. Lindaban Fisher MCHC (RBC) [Mass/Vol] 32.6 g/dL Normal 29.9-35.2 [facility] Comment on above: Performed By: #### C BC ####[facility] [address] [place], [place] [address]Dr. Holly Fisher MCV (RBC) [Entitic vol] 93.0 fL Normal 81.0-99.0 [facility] Comment on above: Performed By: #### C BC ####[facility] [address] [place], [place] [address]Dr. Holly Fisher MONO # 0.5 103/ul Normal 0.3-0.8 [facility] Comment on above: Performed By: #### C BC ####[facility] [address] [place], [place] [address]Dr. Holly Fisher Monocytes/100 WBC (Bld) 7.3 % Normal 1.7-12.0 [facility] Comment on above: Performed By: #### C BC ####[facility] [address] [place], [place] [address]Dr. Holly Fisher NEUT # 4.1 103/ul Normal 1.4-6.5 [facility] Comment on above: Performed By: #### C BC ####[facility] [address] [place], [place] [address]Dr. Holly Fisher Neutrophils/100 WBC (Bld) 64.5 % Normal 43.0-75.0 [facility] Comment on above: Performed By: #### C BC ####[facility] [address] [place] [id number]. Holly Fisher Platelet mean volume (Bld) [Entitic vol] 10.5 fL Normal 9.5-13.5 [facility] Comment on above: Performed By: #### C BC ####[facility] [address] [place] [id number]. Holly Fisher PLT 253 103/ul Normal 150-450 [facility] Comment on above: Performed By: #### C BC ####[facility] [address] [place] [address]Dr. Holly Fisher RBC 4.42 106/ul Normal 4.20-5.40 [facility] Comment on above: Performed By: #### C BC ####[facility] [address] [place] [address]Dr. Holly Fisher WBC 6.3 103/ul Normal 4.0-11.0 [facility] Comment on above: Performed By: #### C BC ####[facility] [address] [place] [address]Dr. Holly Fisher LIPID PROFILEon 03-05-2022 CHOL-HDL RATIO NORM SEE BELOW Normal [facility] Comment on above: Result Comment: 3.3 - 4.4 LOW RISK 4.4 - 7.1 AVERAGE RISK 7.1 - 11.0 MODERATE RISK >11.0 HIGH RISK Performed By: #### L IPID, CMP #### [facility] [address] [place] [address] [address] Holly Fisher Cholesterol [Mass/Vol] 263 mg/dL Critically high <=200 [facility] Comment on above: Performed By: #### L IPID, CMP #### [facility] [address] [place] [address] [address] Holly Fisher Cholesterol in HDL [Mass/Vol] 63 mg/dL Critically high 40-60 [facility] Comment on above: Performed By: #### L IPID, CMP #### [facility] [address] [place] [address] [address] Holly Fisher Cholesterol in LDL [Mass/Vol] 160.2 mg/dL Normal [facility] Comment on above: Performed By: #### L IPID, CMP #### [facility] [address] [place] [address] Dr. Holly Fisher Cholesterol.total/ Cholesterol in HDL [Mass ratio] 4.2 {ratio} Normal [facility] Comment on above: Performed By: #### L IPID, CMP #### [facility] [address] [place] [address] [address] Holly Fisher HDL NORMAL > or = 60 mg/dl - LO W CARDIOVASCULAR RISK <40 mg/dl - HIGH CARDIOVASCULAR RISK Normal [facility] Comment on above: Performed By: #### L IPID, CMP #### [facility] [address] [place] [address] Dr. Holly Fisher LDL CALC NORMAL SEE BELOW Normal [facility] Comment on above: Result Comment: <100 mg/dl OPTIMAL 100 - 129 mg/dl NEAR OR ABOVE OPTIMAL 130 - 159 mg/dl BORDERLINE HIGH 160 - 189 mg/dl HIGH >190 mg/dl VERY HIGH Performed By: #### L IPID, CMP #### [facility] [address] [place] [address] Dr. Holly Fisher Triglyceride [Mass/Vol] 199 mg/dL Critically high <=150 [facility] Comment on above: Performed By: #### L IPID, CMP #### [facility] [address] [place] [address] Dr. Holly Fisher VLDL CALC 39.8 mg/dL Normal [facility] Comment on above: Performed By: #### L IPID, CMP #### [facility] [address] [place] [address] Dr. Holly Fisher MG MAMM SCREEN 3D SHERRIE CADon 03-05-2022 MG MAMM SCREEN 3D SHERRIE CAD Patient: LETTY COFFEY Exam Date: 03/05/2022 : 1945 Gender:F Ordering : DR LUIS THOMAS M.D. Admission #: [id number] Family : Order #: [id number] CLICK HERE TO VIEW EXAM RADIOLOGY REPORT [...] Treatments None Family Cancers None LOCATION: [facility] BREAST COMPOSITION: Scattered areas fibroglandular [...] Ortiz MD on 03/05/2022 at 09:55 Normal [facility] PROF 14(COMP METB)on 022 Albumin [Mass/Vol] 3.9 g/dL Normal 3.4-5.0 [facility] Comment on above: Performed By: #### L IPID, CMP #### [facility] [address] [place] [address] Dr. Holly Fisher Albumin/Globulin [Mass ratio] 1.1 {ratio} Normal [facility] Comment on above: Performed By: #### L IPID, CMP #### [facility] [address] [place] [address] [address] Holly Fisher ALP [Catalytic activity/Vol] 54 U/L Normal 46-116 [facility] Comment on above: Performed By: #### L IPID, CMP #### [facility] [address] [place] [address] [address] Holly Fisher ALT [Catalytic activity/Vol] 22 U/L Normal 14-59 [facility] Comment on above: Performed By: #### L IPID, CMP #### [facility] [address] [place] [address] [address] Holly Fisher Anion gap [Moles/Vol] 12.5 mmol/L Normal [facility] Comment on above: Performed By: #### L IPID, CMP #### [facility] [address] [place] [address] [address] Holly Fisher AST [Catalytic activity/Vol] 14 U/L Critically low 15-37 [facility] Comment on above: Performed By: #### L IPID, CMP #### [facility] [address] [place] [address] [address] Holly Fisher Bilirubin [Mass/Vol] 0.4 mg/dL Normal 0.2-1.0 [facility] Comment on above: Performed By: #### L IPID, CMP #### [facility] [address] [place] [address] Dr. Holly Fisher Calcium [Mass/Vol] 8.6 mg/dL Normal 8.5-10.1 [facility] Comment on above: Performed By: #### L IPID, CMP #### [facility] [address] [place] [address] [address] Holly Fisher Chloride [Moles/Vol] 106 mmol/L Normal 98-107 [facility] Comment on above: Performed By: #### L IPID, CMP #### [facility] [address] [place] [address] Dr. Holly Fisher CO2 [Moles/Vol] 26.8 mmol/L Normal 21.0-32.0 [facility] Comment on above: Performed By: #### L IPID, CMP #### [facility] [address] [place] [address] [address] Holly Fisher Creatinine [Mass/Vol] 0.60 mg/dL Normal 0.55-1.02 [facility] Comment on above: Performed By: #### L IPID, CMP #### [facility] [address] [place] [address] [address] Holly Fisher EGFR-AF ANGOLAN >60 Normal >=60 [facility] Comment on above: Performed By: #### L IPID, CMP #### [facility] [address] [place] [address] [address] Holly Fisher EGFR-NON AF ANGOLAN >60 Normal >=60 [facility] Comment on above: Performed By: #### L IPID, CMP #### [facility] [address] [place] [address] [address] Holly Fisher Globulin (S) [Mass/Vol] 3.4 g/dL Normal [facility] Comment on above: Performed By: #### L IPID, CMP #### [facility] [address] [place] [address] [address] Holly Fisher Glucose [Mass/Vol] 98 mg/dL Normal 74-106 [facility] Comment on above: Performed By: #### L IPID, CMP #### [facility] [address] [place] [address] Dr. Holly Fisher Potassium [Moles/Vol] 4.3 mmol/L Normal 3.5-5.1 [facility] Comment on above: Performed By: #### L IPID, CMP #### [facility] [address] [place] [address] Dr. Holly Fisher Protein [Mass/Vol] 7.3 g/dL Normal 6.4-8.2 [facility] Comment on above: Performed By: #### L IPID, CMP #### [facility] [address] [place] [address] Dr. Holly Fisher Sodium [Moles/Vol] 141 mmol/L Normal 136-145 [facility] Comment on above: Performed By: #### L IPID, CMP #### [facility] [address] [place] [address] [address] Holly Fisher Urea nitrogen [Mass/Vol] 14.0 mg/dL Normal 7.0-18.0 [facility] Comment on above: Performed By: #### L IPID, CMP #### [facility] [address] [place] [address] Dr. Holly Fisher Urea nitrogen/Creatinin e [Mass ratio] 23.3 mg/mg Normal [facility] Comment on above: Performed By: #### L IPID, CMP #### [facility] [address] [place] [address] Dr. 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 Normal [facility] OPERATIVE REPORTon 7 [facility] : [birth year][facility] REC NO: [id number] ROOM:ACCOUNT NO: [id number] ADMISSION DATE: 04/27/17PHYSICIAN: EMRE STAPLETONDATE OF PROCEDURE: [...] used to engage the membrane in a elxoj-luv-eiyd technique andthe membrane was elevated from the [...] well without complications.EMRE Llanes DABSHAVOND:04/27/2017 9:59:31 CD/[id number]_VGPRS_TJob#: [id number] Doc#: [id number] [facility] Vital Signs Date Time Vital Sign Value Performing Clinician Facility 05-24-2025 10:16-0400 Body weight 68.04 kg Kriss Velez DO Work Phone: [facility] 05-24-2025 10:16-0400 Diastolic blood pressure 70 mm[Hg] Kriss Velez DO Work Phone: [facility] [employer] 05-24-2025 10:16-0400 Systolic blood pressure 120 mm[Hg] Kriss Velez DO Work Phone: [facility] [employer] 06-30-2023 09:15-0400 Body height 158.75 cm Luis Thomas Other [employer] Other 06-30-2023 09:15-0400 Body mass index (BMI) [Ratio] 30.95 kg/m2 Luis Thomas Other [employer] Other 06-30-2023 09:15-0400 Body temperature 96.5 [degF] Luis Thomas Other [employer] Other 06-30-2023 09:15-0400 Body weight 78.02 kg Luis Thomas Other [employer] Other 06-30-2023 09:15-0400 Diastolic blood pressure 76 mm[Hg] Luis Thomas Other [employer] Other 06-30-2023 09:15-0400 Systolic blood pressure 156 mm[Hg] Luis Thomas Other [employer] Other 04-13-2023 15:00-0400 Body height 158.75 cm Luis Thomas Other [employer] Other 04-13-2023 15:00-0400 Body mass index (BMI) [Ratio] 31.49 kg/m2 Luis Thomas Other [employer] Other 04-13-2023 15:00-0400 Body weight 79.38 kg Luis Thomas Other [employer] Other 04-13-2023 15:00-0400 Diastolic blood pressure 78 mm[Hg] Luis Thomas Other [employer] Other 04-13-2023 15:00-0400 Systolic blood pressure 135 mm[Hg] Luis Thomas Other [employer] Other 03-18-2023 08:40-0400 Body height 158.75 cm Ej Thomas Other [employer] Other 03-18-2023 08:40-0400 Body mass index (BMI) [Ratio] 31.67 kg/m2 Ej Thomas Other [employer] Other 03-18-2023 08:40-0400 Body weight 79.83 kg Ej Thomas Other [employer] Other 03-18-2023 08:40-0400 Diastolic blood pressure 84 mm[Hg] Ej Thomas Other [employer] Other 03-18-2023 08:40-0400 Systolic blood pressure 134 mm[Hg] Ej Thomas Other [employer] Other 01-21-2023 11:00-0400 Body height 158.75 cm Luis Thomas Other [employer] Other 01-21-2023 11:00-0400 Body mass index (BMI) [Ratio] 32.21 kg/m2 Luis Thomas Other [employer] Other 01-21-2023 11:00-0400 Body weight 81.19 kg Luis Thomas Other [employer] Other 01-21-2023 11:00-0400 Diastolic blood pressure 82 mm[Hg] Luis Thomas Other [employer] Other 01-21-2023 11:00-0400 SaO2% (BldA) [Mass fraction] 97 % Luis Martha Other [employer] Other 01-21-2023 11:00-0400 Systolic blood pressure 142 mm[Hg] Luis Thomas Other [employer] Other Encounters Encounter Date Encounter Type Care Provider Facility Start: 05-30-2025 End: 05-30-2025 Bamboo flowsheet Dusty Nassar DO Work Phone: [facility] Start: 05-30-2025 End: 05-30-2025 Bamboo flowsheet Dusty Nassar DO Work Phone: [facility] Start: 05-30-2025 End: 05-30-2025 Follow-up encounter Dusty Nassar DO Work Phone: [facility] Comment on above: Follow-up; Retinal I njection [...] Bamboo flowsheet Dusty Nassar DO Work Phone: [facility] Start: 05-23-2025 End: 05-23-2025 Bamboo flowsheet Dusty Nassar DO Work Phone: [facility] Start: 05-23-2025 End: 05-23-2025 Clinical Support Dusty Nassar DO Work Phone: [facility] Comment on above: Retinal Injection; M acular Degeneration Start: 04-18-2025 End: 04-18-2025 Bamboo flowsheet Dusty Nassar DO Work Phone: [facility] Start: 04-18-2025 End: 04-18-2025 Bamboo flowsheet Dsuty Nassar DO Work Phone: [facility] Start: 04-18-2025 End: 04-18-2025 Clinical Support Dusty Nassar DO Work Phone: [facility] Comment on above: Retinal Injection; M acular Degeneration Start: 03-07-2025 End: 03-07-2025 Bamboo flowsheet Dusty Nassar DO Work Phone: [facility] Start: 03-07-2025 End: 03-07-2025 Bamboo flowsheet Dusty Nassar DO Work Phone: [facility] Start: 03-07-2025 End: 03-07-2025 [...] 02-26-2025 End: 02-26-2025 ambulatory Andrius Vytautas Giedraitis Facility:[facility] Start: 01-29-2025 End: 01-29-2025 ambulatory Andrius Vytautas Giedraitis Facility:[facility] Start: 01-15-2025 End: 01-15-2025 ambulatory Andrius Vytautas Giedraitis Facility:[facility] Start: 12-06-2024 End: 12-06-2024 ambulatory DUSTY NASSAR Not Available Start: 10-02-2024 End: 10-02-2024 ambulatory Andrius Vytautas Giedraitis Facility:[facility] Start: 09-26-2024 End: 09-26-2024 Bamboo flowsheet Dusty [...] 09-25-2024 End: 09-25-2024 ambulatory Andrius Vytautas Giedraitis [facility] Start: 09-18-2024 End: 09-18-2024 ambulatory Andrius Vytautas Giedraitis MD Facility:[facility] Start: 09-11-2024 End: 09-11-2024 ambulatory Gianna Kelley MD Facility:[facility] Start: 08-21-2024 End: 08-21-2024 ambulatory Gianna Kelley MD Facility:[facility] [place] Start: 07-25-2024 End: 07-25-2024 Bamboo flowsheet Dusty [...] 06-30-2023 End: 06-30-2023 ambulatory Luis Thomas Other [employer] Other Start: 06-30-2023 Office outpatient vi sit 15 minutes Luis Thomas [facility] Start: 05-18-2023 End: 05-18-2023 ambulatory Luis Thomas Other [employer] Other Start: 05-18-2023 Telephone encounter Luis Thomas [facility] Start: 05-13-2023 End: 05-14-2023 ambulatory [facility] Start: 05-13-2023 End: 05-13-2023 ambulatory [facility] Start: 04-16-2023 End: 04-17-2023 ambulatory ALLISON MARSH [facility] Start: 04-13-2023 End: 04-13-2023 ambulatory Luis Thomas Other [employer] Other Start: 04-13-2023 Office outpatient vi sit 15 minutes Luis Thomas [facility] Start: 04-05-2023 End: 04-05-2023 ambulatory Ej Thomas Other [employer] Other Start: 04-05-2023 Telephone encounter Ej Thomas [facility] Start: 03-18-2023 End: 03-18-2023 ambulatory Ej Thomas Other [employer] Other Start: 03-18-2023 Office outpatient ne w 30 minutes Ej Thomas [facility] [place] Start: 02-09-2023 End: 02-10-2023 ambulatory NARENDRANATH LAKSHMIPATHY . Facility:[facility] Start: 02-01-2023 ambulatory NARENDRANATH LAKSHMIPATHY . Facility:[facility] Start: 01-28-[address] LUIS THOMAS [facility] ity:[facility] Start: 01-28-2023 End: 01-29-2023 ambulatory NARENDRANATH LAKSHMIPATHY . Facility:[facility] Start: 01-21-2023 End: 01-21-2023 ambulatory Luis Thomas Other [employer] Other Start: 01-21-2023 Office outpatient vi sit 15 minutes Luis Thomas [facility] Start: 01-12-2023 End: 01-12-2023 ambulatory NARENDRANATH LAKSHMIPATHY . Facility:[facility] Start: 12-31-2022 End: 01-01-[address] LUIS THOMAS Facility:[facility] Start: 12-28-2022 End: 12-28-[address] LUIS THOMAS Facility:[facility] Start: 12-24-2022 End: 12-25-[address] LUIS THOMAS Facility:[facility] Start: 10-07-2022 End: 10-08-2022 ambulatory SHAWNA RUIZ . Facility:[facility] Start: 09-03-2022 Encounter for preprocedural laboratory examination DR YULI LEES . [facility] Start: 09-01-2022 End: 09-01-[address] YULI LEES . Facility:[facility] Start: 08-28-2022 End: 08-29-[address] LUIS THOMAS Facility:[facility] Start: 08-28-2022 End: 08-29-2022 Encounter for preprocedural laboratory examination DR LUIS THOMAS Facility:[facility] Start: 08-11-2022 End: 08-11-[address] YULI LEES . Facility:[facility] Start: 08-08-2022 Encounter for preprocedural cardiovascular examination SHAWNA RUIZ . [facility] Start: 08-07-2022 End: 08-08-[address] LUIS [...] Start: 04-27-2017 End: 04-27-2017 Ambulatory EMRE STAPLETON [facility] Procedures Date Procedure Procedure Detail [...] EMRE STAPLETON Start: 04-27-2017 NURSING COMMUNICATION Celia STAPLEOTN Start: 04-27-2017 NURSING OXYGEN ORDERS/INSTRUCTIONS EMRE STAPLETON Start: 04-27-2017 VITAL SIGNS EMRE BYNUM Management of drug regimen Luis Thomas Other Screening for malignant neoplasm of colon Luis Thomas Other Plan of Treatment Date Care Activity Detail Author Start: 06-05-2026 End: 06-05-2026 Patient encounter procedure 06/05/2026 10:15 AM EDT Office Visit SARAH GARCIA [address] [place] [address] Kriss Velez DO [address] [place] [address] SARAH GARCIA Start: 05-30-2025 End: 05-30-2025 Clinical Support [facility] Comment on above: Arrived Start: 05-28-2025 Influenza vaccination Influenza Vacc ine (#1) [facility] Start: 05-24-2025 End: 05-24-2025 Patient encounter procedure [facility] Comment on above: Vaginal atrophy; Encounter for screening mammogram for breast cancer Start: 05-23-2025 End: 05-23-2025 Clinical Support 05/23/2025 8:30 AM EDT Clinical Support [facility] [address] [place] [phone] Dusty Nassar, DO [address] [place] [address] Arrived [facility] Comment on above: Arrived Start: 04-18-2025 End: 04-18-2025 Clinical Support 04/18/2025 8:30 AM EDT Clinical Support [facility] [address] [place] [phone] Dusty Nassar, DO [address] [place] [address] Arrived [facility] Comment on above: Arrived Start: 03-07-2025 End: 03-07-2025 Clinical Support [facility] Comment on above: Arrived Start: 02-28-2025 End: 02-28-2025 Clinical Support 02/28/2025 9:15 AM EDT Clinical Support [facility] [address] [place] [id number] Dusty Nassar, DO [address] [place] [address] Arrived [facility] Comment on above: Arrived Start: 09-26-2024 End: 09-26-2024 Clinical Support 09/26/2024 9:00 AM EST Clinical Support [facility] [address] [place] [phone] Dusty Nassar, DO [address] [place] [address] Arrived [facility] Comment on above: Arrived Start: 07-25-2024 End: 07-25-2024 Clinical Support 07/25/2024 1:45 PM EDT Clinical Support [facility] [address] [place] [address] Dusty Nassar DO [address] [place] [address] Arrived [facility] Comment on above: Arrived Start: 05-30-2024 End: 05-30-2024 Clinical Support 05/30/2024 9:45 AM EDT Clinical [facility] [address] [place] [address] Dusty Nassar DO [address] [place] [address] Arrived [facility] Comment on above: Arrived Start: 05-28-2024 Influenza vaccination Influenza Vacc ine (#1) [facility] Start: 02-26-2023 ambulatory Ambulatory Facility: 1 DBT Breast - bilater al screening Bilateral screening mammogram with tomosynthesis Imaging Routine Encounter for screening mammogram for breast cancer Ordered: 05/24/2025 [facility] Work Phone: Comment on above: Ordered: 05/24/2025 Intravitreal Injection, Pharmacologic Agent - OD - Right Eye Intravitreal Injection, Pharmacologic Agent - OD - Right Eye Ophthalmology Routine 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 eye with active choroidal neovascularization (HCC) ([facility]/HCC) Ordered: 07/25/2024 [facility] Work Phone: Comment on above: Ordered: 07/25/2024 Intravitreal Injection, Pharmacologic Agent - OD - Right Eye Intravitreal Injection, Pharmacologic Agent - OD - Right Eye Ophthalmology Routine 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 eye with active choroidal neovascularization (HCC) ([facility]/HCC) Ordered: 05/30/2024 [facility] Work Phone: Comment on above: Ordered: 05/30/2024 Immunizations Immunization Date Immunization Notes Care Provider Fa cili 08-11-2024 influenza virus vacc ine, unspecified formulation Dusty Nassar DO Work Phone: [facility] 07-26-2023 influenza virus vacc ine, unspecified formulation Dusty Nassar DO Work Phone[facility] Healthcare Payers Date Payer Category Payer Private Health Insurance [employer] [id number] [id number] [facility] [employer] [id number] 2018 Unknown [id number]. 1.13.693.2. [id number] 2017 Medicare [id number]. 1.13.693.2. [id number] [id number] [facility] [id number] 2.16.840.1.991880. 1959 Medicare [id number] ..840.1.995966. 1959 Unknown [id number] 1947 Unknown [id number] 2.16.840.1.353078.3.579.2. 593 1947 Unknown [id number] 2.16.840.1.801874.3.579.2. 593 1947 Unknown [id number] 2.16.840.1.008321.3.579.2. 593 1947 Unknown [id number] 2.16.840.1.062379.3.579.2. 593 1947 Unknown [id number] 2.16.840.1.178107.3.579.2. 593 1947 Unknown [id number] 2.16.840.1.352631.3.579.2. 593 1947 Unknown [id number] 2.16.840.1.396317.3.579.2. 593 1947 Unknown [id number] 2.16.840.1.471923.3.579.2. 593 1947 Unknown [id number] 2.16.840.1.538846.3.579.2. 593 1947 Unknown [id number] 2.16.840.1.644057.3.579.2. 593 1947 Unknown [id number] 2.16.840.1.191355.3.579.2. 593 1947 Unknown [id number] 2.16.840.1.217605.3.579.2. 593 1947 Unknown [id number] 2.16.840.1.356368.3.579.2. 593 1947 Unknown [id number] 2.16.840.1.535957.3.579.2. 593 1947 Unknown [id number] 2.16.840.1.664571.3.579.2. 593 1947 Unknown [id number] 2.16.840.1.219372.3.579.2. 593 1947 Unknown [id number] 2.16.840.1.218212.3.579.2. 593 1947 Unknown [id number] 2.16.840.1.446559.3.579.2. 593 1947 Unknown [id number] 2.16.840.1.930595.3.579.2. 593 1947 Unknown [id number] 2.16.840.1.972297.3.579.2. 593 1947 Unknown [id number] 2.16.840.1.503444.3.579.2. 593 1947 Unknown [id number] 2.16.840.1.041269.3.579.2. 593 1947 Unknown [id number] 2.16.840.1.955127.3.579.2. 593 1947 Unknown [id number] 2.16.840.1.084735.3.579.2. 593 1947 Unknown [id number] 2.16.840.1.772736.3.579.2. 593 1947 Unknown [id number] 2.16.840.1.657169.3.579.2. 196 1947 Unknown [id number] 2.16.840.1.507492.3.579.2. 196 1947 Unknown [id number] 2.16.840.1.361890.3.579.2. 196 1947 Unknown [id number] 2.16.840.1.412970.3.579.2. 196 1947 Unknown [id number] 2.16.840.1.757362.3.579.2. 196 1947 Unknown [id number] 2.16.840.1.908463.3.579.2. 196 1947 Unknown [id number] 2.16.840.1.006151.3.579.2. 196 1947 Unknown [id number] 2.16.840.1.239342.3.579.2. 196 1947 Unknown [id number] 2.16.840.1.815255.3.579.2. 1259 1947 Unknown [id number] 2.16.840.1.230924.3.579.2. 1259 1947 Unknown [id number] 2.16.840.1.258899.3.579.2. 1259 1947 Unknown [id number] 2.16.840.1.182349.3.579.2. 1259 1947 Unknown [id number] 2.16.840.1.955047.3.579.2. 1259 1947 Unknown [id number] 2.16.840.1.673496.3.579.2. 1259 1947 Unknown [id number] 2.16.840.1.655773.3.579.2. 1259 1947 Unknown [id number] 2.16.840.1.552859.3.579.2. 1259 1947 Unknown [id number] 2.16.840.1.131479.3.579.2. 1259 Social History Date Type Detail Facility Unknown if ever smoked [employer] Other Start: 05-30-2024 End: 05-30-2025 Sex Assigned At [facility] Other Start: 10-11-2023 Tobacco smoking status CTIS Never smoked tobacco [facility] Start: 10-11-2023 Tobacco use and exposure Smokeless tobacco non-user [facility] Start: 05-30-2024 End: 05-30-2025 History of Social function [facility] Start: 1945 Sex assigned at Not on file [facility] Clinical Notes 03-05-2022 to 05-30-2025 Dusty Nassar, [...] 2 MG/0.05ML Route: Intravitreal, Site: Right Eye [facility]: 05374-663-32, Lot: [id number], Expiration date: 06/27/2026, Waste: 0 mL Post-op [...] increased pain, redness, decreased vision or concerns. [facility] 05-30-2025 History of Presen t illness Narrative [...] 2 MG/0.05ML Route: Intravitreal, Site: Right Eye [facility]: 58975-869-06, Lot: [id number], Expiration date: 06/27/2026, Waste: 0 mL Post-op [...] vision or concerns. documented in this encounter [facility] 05-24-2025 History of Presen t illness Narrative [...] Comments Pap smear 05/10/24 wnl Mammogram 08/11/24 [facility] [place] Review of Systems - General: Chills denies. [...] Review Audit Reviewed by Elizabeth Santiago MA (Home School Teacher) on 05/24/25 at 1015 Medication Order Taking? Sig Documenting Provider Last Dose Status aspirin 81 MG EC tablet [id number] 1 (one) time each day at the same time Dusty Nassar DO Active baclofen (Lioresal) 10 MG tablet [id number] every 12 (twelve) hours Dusty Nassar DO Active calcium carbonate (Super Calcium) 1500 (600 Ca) MG tablet [id number] 1 tablet with meals Orally Once Dusty Nassar DO Active cefdinir (Omnicef) 300 MG capsule [id number] Take 300 mg by mouth in the morning and 300 mg before bedtime. Dusty Nassar DO Active cholecalciferol (Vitamin D3) 25 MCG (1000 UT) tablet [id number] 1 (one) time each day at the same time Dusty Nassar DO Active denosumab (Prolia) 60 MG/ML solution prefilled syringe [id number] as directed Subcutaneous Dusty Nassar DO Active Egowhxlggkq-Oyhzzsqwamg-FFU (Kxjkax-Lmgsb-WSL-Double Str) 500-400-167 MG tablet [id number] every 12 (twelve) hours Dusty Nassar DO Active losartan (Cozaar) 25 MG tablet [id number] Oral for 90 Days Dusty Nassar DO Active Magnesium Glycinate 100 MG capsule [id number] 2 capsules 1 (one) time each day at the same time Dusty Nassar DO Active Menaquinone-7 (Vitamin K2) 100 MCG capsule [id number] as directed Orally Dusty Nassar DO Active Multiple Vitamins-Minerals (PreserVision AREDS 2) capsule [id number] 1 (one) time each day at the same time Dusty Nassar DO Active Multiple Vitamins-Minerals (Womens 50+ Multi Vitamin) tablet [id number] as directed Orally Dusty Nassar DO Active niacin 500 MG tablet [id number] 1 (one) time each day at the same time Dustyciaran Nassar DO Active Peconic-3 Fatty Acids (Fish Oil) 1200 MG capsule delayed-release [id number] 1 capsule every 12 (twelve) hours Dusty Nassar DO Active traMADol (Ultram) 50 MG tablet [id number] TAKE 1 TABLET BY MOUTH TWICE A DAY NEEDED FOR PAIN MUST LAST 30 DAYS Dusty Nassar DO Active zonisamide (Zonegran) 50 MG capsule [id number] TAKE 3 CAPSULES BY MOUTH EVERY DAY [...] Cystocele, midline N81.11 documented in this encounter [facility] 05-23-2025 Note Time Out 05/23/2025. 9:11 AM. Confirmed correct patient, procedure, site, and patient consented. Anesthesia Topical anesthesia was used. Anesthetic medications included Lidocaine 2%, Proparacaine 0.5%. Procedure Preparation included 5% betadine to ocular surface, eyelid speculum. Injection: 2 mg aflibercept 2 MG/0.05ML Route: Intravitreal, Site: Left Eye [facility]: 18185-150-81, Lot: [id number], Expiration date: 06/27/2026, Waste: 0 mL Post-op [...] increased pain, redness, decreased vision or concerns. [facility] 05-23-2025 Note Right Eye Quality was good. Scan locations included subfoveal. Progression has improved. Findings include abnormal foveal contour, epiretinal membrane, pigment epithelial detachment. Left Eye Quality was good. Scan locations included subfoveal. Progression has been stable. Findings include normal observations. Notes Good scan with normal appearance left eye (OS) [facility] 05-23-2025 History of Presen t illness Narrative [...] 2 MG/0.05ML Route: Intravitreal, Site: Left Eye [facility]: 05837-766-07, Lot: [id number], Expiration date: 06/27/2026, Waste: 0 mL Post-op [...] vision or concerns. documented in this encounter [facility] 04-18-2025 Note Time Out 04/18/2025. 8:54 AM. Confirmed correct patient, procedure, site, and patient consented. Anesthesia Topical anesthesia was used. Anesthetic medications included Lidocaine 2%, Proparacaine 0.5%. Procedure Preparation included 5% betadine to ocular surface, eyelid speculum. A 30 gauge needle was used. Injection: 2 mg aflibercept 2 MG/0.05ML Route: Intravitreal, Site: Right Eye [facility]: 49191-093-17, Lot: [id number], Expiration date: 06/27/2025, Waste: 0 mL Post-op [...] increased pain, redness, decreased vision or concerns. [facility] 04-18-2025 Note Right Eye Quality was good. Scan locations included subfoveal. Progression has been stable. Findings include abnormal foveal contour, epiretinal membrane, pigment epithelial detachment. Left Eye Quality was good. Scan locations included subfoveal. Progression has been stable. Findings include abnormal foveal contour. [facility] 04-18-2025 History of Presen t illness Narrative [...] 2 MG/0.05ML Route: Intravitreal, Site: Right Eye [facility]: 51079-002-44, Lot: [id number], Expiration date: 06/27/2025, Waste: 0 mL Post-op [...] vision or concerns. documented in this encounter [facility] 03-07-2025 Note Time Out 03/07/2025. 1:19 PM. Confirmed correct patient, procedure, site, and patient consented. Anesthesia Topical anesthesia was used. Anesthetic medications included Lidocaine 2%, Proparacaine 0.5%. Procedure Preparation included 5% betadine to ocular surface, eyelid speculum. A 30 gauge needle was used. Injection: 2 mg aflibercept 2 MG/0.05ML Route: Intravitreal, Site: Right Eye [facility]: 80396-686-00, Lot: [id number], Expiration date: 03/27/2026, Waste: 0 mL Post-op [...] increased pain, redness, decreased vision or concerns. [facility] 03-07-2025 History of Presen t illness Narrative Images from the original note were not included. Assessment/Plan Diagnoses and all orders for this visit: Exudative age-related macular 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 ([facility]/HCC) - Intravitreal Injection, Pharmacologic Agent - OD [...] 2 MG/0.05ML Route: Intravitreal, Site: Right Eye [facility]: 68926-609-65, Lot: [id number], Expiration date: 03/27/2026, Waste: 0 mL Post-op [...] vision or concerns. documented in this encounter [facility] 03-05-2025 Note Right Eye Quality was good. Scan locations included subfoveal. Progression has worsened. Findings include intraretinal fluid, pigment epithelial detachment. Left Eye Quality was good. Scan locations included subfoveal. Progression has been stable. Findings include abnormal foveal contour. [facility] 02-28-2025 Note Time Out 02/28/2025. 10:00 AM. Confirmed correct patient, procedure, site, and patient consented. Anesthesia Topical anesthesia was used. Anesthetic medications included Lidocaine 2%, Proparacaine 0.5%. Procedure Preparation included 5% betadine to ocular surface, eyelid speculum. Injection: 2 mg aflibercept 2 MG/0.05ML Route: Intravitreal, Site: Left Eye [facility]: 824[address]-541-00, Lot: [id number], Expiration date: 03/27/2026, Waste: 0 mL Post-op [...] increased pain, redness, decreased vision or concerns. [facility] 02-28-2025 History of Presen t illness Narrative Images from the original note were not included. Assessment/Plan Diagnoses and all orders for this visit: 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 eye with active choroidal neovascularization ([facility]/HCC) - OCT, Retina - OU - Both [...] 2 MG/0.05ML Route: Intravitreal, Site: Left Eye [facility]: 24110-758-25, Lot: [id number], Expiration date: 03/27/2026, Waste: 0 mL Post-op [...] Very mild amount. documented in this encounter [facility] 09-26-2024 Note Time Out 09/26/2024. 9:37 AM. Confirmed correct patient, procedure, site, and patient consented. Anesthesia Topical anesthesia was used. Anesthetic medications included Lidocaine 2%, Proparacaine 0.5%. Procedure Preparation included 5% betadine to ocular surface, eyelid speculum. Injection: 2 mg aflibercept 2 MG/0.05ML Route: Intravitreal, Site: Left Eye [facility]: 79344-862-26, Lot: [id number], Expiration date: 12/26/2025, Waste: 0 mL Post-op [...] increased pain, redness, decreased vision or concerns. [facility] 09-26-2024 Note Right Eye Quality was good. Scan locations included subfoveal. Progression has been stable. Findings include abnormal foveal contour, epiretinal membrane, intraretinal fluid, pigment epithelial detachment. Left Eye Quality was good. Scan locations included subfoveal. Progression has been stable. Findings include normal observations. Notes Good scan with normal appearance left eye (OS) [facility] 09-26-2024 History of Presen t illness [...] 2 MG/0.05ML Route: Intravitreal, Site: Left Eye [facility]: 09199-148-94, Lot: [id number], Expiration date: 12/26/2025, Waste: 0 mL Post-op [...] vision or concerns. documented in this encounter [facility] 07-25-2024 Note Time Out 07/25/2024. 2:58 PM. Confirmed correct patient, procedure, site, and patient consented. Anesthesia Topical anesthesia was used. Anesthetic medications included Lidocaine 2%, Proparacaine 0.5%. Procedure Preparation included 5% betadine to ocular surface, eyelid speculum. Injection: 2 mg aflibercept 2 MG/0.05ML Route: Intravitreal, Site: Left Eye [facility]: 10469-328-94, Lot: [id number], Expiration date: 08/27/2025, Waste: 0 mL Post-op [...] increased pain, redness, decreased vision or concerns. [facility] 07-25-2024 Note Right Eye Quality was good. Scan locations included subfoveal. Progression has been stable. Findings include abnormal foveal contour, pigment epithelial detachment. Left Eye Quality was good. Scan locations included subfoveal. Progression has been stable. Findings include abnormal foveal contour. [facility] 07-25-2024 History of Presen t illness Narrative Images from the original note were not included. Assessment/Plan Diagnoses and all orders for this visit: 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 eye with active choroidal neovascularization ([facility]) - OCT, Retina - OU [...] 2 MG/0.05ML Route: Intravitreal, Site: Left Eye [facility]: 16007-237-85, Lot: [id number], Expiration date: 08/27/2025, Waste: 0 mL Post-op [...] vision or concerns. documented in this encounter [facility] 05-30-2024 Note Time Out 05/30/2024. 10:38 AM. Confirmed correct patient, procedure, site, and patient consented. Anesthesia Topical anesthesia was used. Anesthetic medications included Lidocaine 2%, Proparacaine 0.5%. Procedure Preparation included 5% betadine to ocular surface, eyelid speculum. Injection: 1.25 mg bevacizumab 100 MG/4ML Route: Intravitreal, Site: Left Eye [facility]: 89808-939-38, Lot: [id number], Expiration date: 08/14/2024, Waste: 0 mL Post-op [...] increased pain, redness, decreased vision or concerns. [facility] 05-30-2024 Note Right Eye Quality was good. Scan locations included subfoveal. Progression has improved. Findings include abnormal foveal contour, intraretinal fluid, pigment epithelial detachment. Left Eye Quality was good. Scan locations included subfoveal. Progression has been stable. Findings include abnormal foveal contour. [facility] 05-30-2024 History of Presen t illness Narrative Images from the original note were not included. Assessment/Plan Diagnoses and all orders for this visit: 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 eye with active choroidal neovascularization (HCC) ([facility]) - OCT, Retina - OU - Both [...] 100 MG/4ML Route: Intravitreal, Site: Left Eye [facility]: 80174-934-95, Lot: [id number], Expiration date: 08/14/2024, Waste: 0 mL Post-op [...] MG/ML solution prefilled syringe as directed Subcutaneous Xxfshihulsa-Bqbjnjkfulj-IOA (Vhlwuj-Ltoky-JPY-Double Str) 500-400-167 MG tablet every 12 (twelve) [...] time each day at the same time Peconic-3 Fatty Acids (Fish Oil) 1200 MG capsule [...] Normal Normal Refraction Wearing Rx Sphere Cylinder [place] Add Right +2.50 -2.00 077 +3.25 Left [...] laser capsulotomy, they are to notify their hydrographic engineer promptly if they have a significant change in symptoms, such as flashes of light (photopsia), an increase in floaters, loss of visual field or decrease in visual acuity. documented in this encounter [facility] 06-30-2023 Evaluation note Encounter Date Diagnosis Assessment Notes Jun, Acute non-recurrent maxillary sinusitis (ICD-10 - J01.00) Finish antibiotic, stay hydrated. Ok for NSAIDs for head pressure. Call if no improvement. [employer] Other 08-17-2023 NoteSUBJECTIVE: Chief complaint: Back and right leg pain. History of present illness: Consultation referred by pain management, Dr. Layton of [facility]. Patient reports chronic low back [...] found for any pre (more content not included)...[facility]08-17-2023 NoteSubjective: HPI: Letty Cofefy is a 77 year-old woman who reports [...] and assess x-rays of back. [facility]* Encounter Date Diagnosis Assessment [...] is busy with other appts right now. [employer] Other 06-22-2023 Evaluation note* Encounter Date Diagnosis [...] long as possible before considering surgical intervention. [employer] Other 05-04-2023 NoteCONSULTATION CONSULTATION DATE: 01/28/2023 TO: [...] our patients to inform us about any ztps-zlv-vlkldho medications or herbal remedies/nutritional supplements/alternative remedies. 2. [...] treatment options with their primary care provider.[facility] [id number] Evaluation note * Encounter Date Diagnosis Assessment Notes Treatment Notes Treatment Clinical Notes Dec, Essential (primary) hypertension (ICD-10 - I10) new problem. rx handwritten. f/u 6 weeks. Dec, Other chronic pain (ICD-10 - G89.29) Dec, Pain in left shoulder (ICD-10 - M25.512) PT order given to pt. [employer] Other 04-06-2023 NoteCONSULTATION CONSULTATION DATE: 12/31/2022 TO: [...] our patients to inform us about any hgjo-hhb-tjzrdjl medications or herbal remedies/nutritional supplements/alternative remedies. 2. [...] treatment options with their primary care provider.[facility] [id number] Note CONSULTATION PROCEDURE DATE: 10/07/2022 PREOPERATIVE DIAGNOSIS: [...] fan-like pattern. Patient tolerated the procedure well.[facility] [id number] NoteCONSULTATION CONSULTATION DATE: 10/07/2022 HISTORY OF PRESENT [...] sitting does decrease her pain. Medications include rtce-qpx-dunwqzm Tylenol and the use of Salonpas patches. [...] otherwise indicated. Patient agrees with this plan.[facility] [id number] NoteCONSULTATION CONSULTATION DATE: 07/30/2022 This is a [...] be followed up at the office thereafter.[facility] [id number] NoteCONSULTATION CONSULTATION DATE: 06/25/2022 HISTORY OF PRESENT [...] patient is in agreement with this plan.[facility] [id number] NoteCONSULTATION CONSULTATION DATE: 05/19/2022 CHIEF COMPLAINT: Right [...] like to proceed. CC: Luis Thomas M.D.[facility] [id number] NoteCONSULTATION PROCEDURE DATE: 04/28/2022 PREOPERATIVE DIAGNOSIS: Right [...] Will be followed up in the office.[facility] [id number] NoteCONSULTATION CONSULTATION DATE: 04/28/2022 CHIEF COMPLAINT: Right [...] like to proceed. CC: Luis Thomas M.D.[facility] [id number] NotePROCEDURE: XR HIP RT 2 3V W PELVIS COMPARISON: None. HISTORY: Arthropathy FINDINGS: BONES:No acute fracture or dislocation. Mild osteoarthropathy with marginal osteophyte formation. 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 No visible soft tissue swelling. EFFUSION:None visible. OTHER: Negative. 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 Electronically authenticated by: YOUSUF ORTIZ Date: 2022-03-05 10:09[facility]No Expedit.[facility]Brun[place] [facility]aconi Other evaluation note* Diagnosis 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 eye with active choroidal neovascularization (CMS/HCC)- Primary [facility] Diagnosis 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 eye with active choroidal neovascularization (HCC) (CMS/HCC)- Primary Right posterior capsular opacification Unspecified after-cataract [facility] Diagnosis 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 eye with active choroidal neovascularization (CMS/HCC)- Primary [facility] Diagnosis 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 eye with active choroidal neovascularization (CMS/HCC)- Primary Exudative age-related macular 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 (CMS/HCC) [facility] Diagnosis Exudative age-related macular 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 (CMS/HCC)- Primary [facility] Diagnosis Exudative age-related macular 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 (HCC)- Primary [facility] Diagnosis Exudative age-related macular [...] History COLONOSCOPY Hospitalization History SEE SURGICAL HX [employer] Other History general Narrative - Reported* Type [...] growth surgery Hospitalization History SEE SURGICAL HX [employer] Other Summary Purpose Family History No Family History Records FoundNo Family History Records FoundNo Family History Records FoundNo Family History Records FoundNo Family History Records Found Advance Directives No Advanced Directives Records FoundNo Advanced Directives Records FoundNo Advanced Directives Records FoundNo Advanced Directives Records FoundNo Advanced Directives Records Found Additional Source Comments INFORMATION SOURCE (unrecogn ized section and content) DATE CREATED AUTHOR 03/23/2018 [facility] DATE CREATED AUTHOR AUTHOR'S ORGANIZ ATION 02/10/2023 [facility] DATE CREATED AUTHOR AUTHOR'S ORGANIZ ATION 05/19/2023 [facility] DATE CREATED AUTHOR AUTHOR'S ORGANIZ ATION 03/21/2025 [facility] DATE CREATED AUTHOR AUTHOR'S ORGANIZ ATION 05/31/2025 [facility] dical Specialists EPIC REASON FOR [...] Care Teams (unrecognized sec tion and content) Junk Dealer Relationship Specialty Start Date End Date Wiley Price MD [address] [place], [place] [phone] PCP - General Family Medicine 12/10/23 [place] [address] [place] [phone] Referring Physician Family Medicine 10/15/23 Junk Dealer Relationship Specialty Start Date End Date Wiley Price MD [address] [place] [address] [phone] (Fax) PCP - General Family Medicine 12/10/23 [place] [address] [place] [address] [phone] Referring Physician Family Medicine 10/15/23 Junk Dealer Relationship Specialty Start Date End Date Wiley Price MD [address] [place] [address] [phone] PCP - General Family Medicine 12/10/23 Kimber Price MD [address] [place] [phone] Referring Physician Family Medicine 10/15/23 Junk Dealer Relationship Specialty Start Date End Date Wiley Price MD [address] [place] [address] [phone] PCP - General Family Medicine 12/10/23 Kimber Price MD [address] [place] [phone] Referring Physician Family Medicine 10/15/23 Junk Dealer Relationship Specialty Start Date End Date Wiley Price MD [address] [place] [address] (Fax) PCP - General Family Medicine 12/10/23 [place] [address] [place] [phone] Referring Physician Family Medicine 10/15/23 Junk Dealer Relationship Specialty Start Date End Date Wiley Price MD [address] [place] [address] (Fax) PCP - General Family Medicine 12/10/23 Kimber Price MD [address] [place] [address] [phone] Referring Physician Family Medicine 10/15/23 Junk Dealer Relationship Specialty Start Date End Date Wliey Price MD [address] [place] [address] (Fax) PCP - General Family Medicine 12/10/23 Kimber Price MD [address] [place] [address] Referring Physician Family Medicine 10/15/23 Junk Dealer Relationship Specialty Start Date End Date Wiley Price MD [address] [place] [address] (Fax) PCP - General Family Medicine 12/10/23 Kimber Price MD [address] [place] [phone] Referring Physician Family Medicine 10/15/23 Junk Dealer Relationship Specialty Start Date End Date Wiley Price MD [address] [place] [address] PCP - General Family Medicine 12/10/23 [place] [address] [place] [phone] Referring Physician Family Medicine 10/15/23 Junk Dealer Relationship Specialty Start Date End Date Wiley Price MD [address] [place] [address] PCP - General Family Medicine 12/10/23 [place] [address] [place] [address] [phone] Referring Physician Family Medicine 10/15/23 FOR RECORDS [...] BE BASED ON THE PRIMARY CLINICAL RECORDS. [facility] [employer] [facility]. provides no warranty or guarantee of the accuracy or completeness of information in this document.
[2025-06-11 08:17] VITALS: BP 150/75; PULSE 70; TEMP 36.7; O2SAT 100
[2025-06-11 08:58] VITALS: BP 144/70; PULSE 75; O2SAT 98
[2025-06-11 08:59] VITALS: BP 145/78; PULSE 77; O2SAT 98
[2025-06-11] MEDS: IOHEXOL 240 MG/ML - 10 ML VIAL 12 MG INJ (09:00)
[2025-06-11] MEDS: BUPIVACAINE HCL 0.25% PF 25 MG/10 ML VIAL 2 ML INJ (09:00)
[2025-06-11] MEDS: LIDOCAINE HCL 2% 400 MG/20 ML MDV INJ (09:01)
[2025-06-11] MEDS: METHYLPREDNISOLONE ACETATE 40 MG/ML VIAL INJ (09:01)
--- NOTE | 2025-06-11 09:01 | W.PM.PROCNOT ---
Date of procedure: 06/11/25 Pre-op diagnosis: Pain due to right sacroiliitis Post-op diagnosis: same as pre-op Procedure: Procedure: Right sacroiliac joint injection Medications: Bupivacaine 0.25% 3cc, depomedrol 40mg After informed consent was obtained, the patient was brought to the medical procedure unit and placed in the prone position, when a timeout was completed verifying correct patient, procedure, site, positioning, implant, and/or special equipment.? The skin overlying the area was prepped and draped in standard sterile fashion using alcohol.? A 25-gauge needle was inserted towards the right sacroiliac joint under direct fluoroscopic imaging.? Needle tip was advanced until the joint was encountered.? We instilled a total of 2 mL of solution.? Postoperatively needles were removed.? The patient tolerated the procedure well without complication.? The patient reported reduction in pain symptoms postoperatively. Anesthesia: Local Surgeon: Gianna Kelley Pathology: none sent Condition: stable Disposition: no change
== END 2025-06-11 09:04 | disposition home or self-care (01) ==
LOC: SURGOUT 07:46
PROVIDERS: PCP Nurse Practitioner Family; Visit Provider Anesthesiology
DX: M46.1 Sacroiliitis, not elsewhere classified (principal)
CPT/HCPCS: 27096; J0665; J1010; Q9966

== ENCOUNTER 2025-06-21 08:50 | Outpatient (OUT) | payer MEDICARE, OTHER, SELFPAY ==
--- OUTSIDE RECORDS SUMMARY | 2024-03-03 04:40 | XMS_ITS ---
Author Organization [facility] Address [address] [place] [address] Care Team Providers Care Reel Winder Name Role Phone Hakan Rossarpan Unavailable [phone] АлександрLiamSosa Unavailable Allergies No Known Allergies Reason For Referral Reason REFERRAL FOR SPINAL CORD STIMULATOR Diagnosis 1 Lumbar back pain (M5 4.50) Referral Organization [facility] Referring Provider First Name Larry Referring Provider Last Name [facility] Referring Provider Speciality Orthopedic Surgery Referred Organization OTHER Referred Provider MARIBELL LEPE General Notes Courtney Peguero 2023 09:50:56 AM >, Courtney Peguero 03/15/2024 08:55:06 AM >REFERRAL FAXEDMarielena Dawn 03/22/2024 12:54:57 PM >[facility] [place] [facility] 04/18/2024 09:29:01 AM >FAXED [...] Problem Status W/U Status Risk Notes Problem [id number] Spinal stenosis, lumbar region without neurogenic claudication (M48.061) Active confirmed Problem 779099532 Other forms of scoliosis, lumbar region (M41.86) Active confirmed Encounters Encounter Location Date Provider Diagnosis [facility] [address] [place] [address] [place]03/20[place] Spinal stenosis, lumbar region without neurogenic claudication [...] Date Lumbar spine, 4v flex ext - 75183 2023 Referrals Referral Date Details 03/03/2024 03/03/2024, REFERRAL FOR SPINAL CORD STIMULATOR, MORRIS LEPE Next Appt Details Follow Up: prn, Reason: Progress Notes * GAYATHRI LOPEZ MDOB:[birth year] (79 yo F)Acc No.[id number]:03/03/2024 Patient: GAYATHRI BAI Provider: COLETTE Gotti :1945 A ge:78 Y S ex:Female Date:03/03/2024 Address:[address] [place], [place] [id number] Subjective: * Chief Complaints: * 1 . Low Back Pain. * HPI: G eneral Follow Up Information: Dictated by Sosa Delgado PA-C Thank you for referring your patient to see Dr. Harden in surgical spine consultation at the [facility] [place] [facility] [place]. The patient is a 78-year-old female that [...] a second opinion. She has been seeing [place] pain management and had her last EDWIN [...] otor vehicle accident: N o. T hird constitution party responsibility: N o. W hat activities make [...] L4 on 5. No fractures noted. . [facility] Imaging Studies: [facility] lumbar spine completed at the [facility] on 02/09/2023; impression: Very limited examination due [...] * Images: * Electronic signature of Conrado Fountain PA-C on 06/21/2025 at 08:54 AM EDT Sign off status: Pending * Provider: COLETTE Gotti Date: 0 03/03/2024 Generated for Fabián bryan/Nino/Chikis on: 0 06/21/2025 08:54 AM EDT History and Physical Notes * HPI (History of Present Illness) Category Sub-Category Detail Notes Category Not es General Follow Up Information Dictated by Sosa Delgado PA-C Thank you for referring your patient to see Dr. Harden in surgical spine consultation at the [facility] [place] [facility]. The patient is a 78-year-old female that [...] a second opinion. She has been seeing [place] pain management and had her last EDWIN [...] right side) runs down my leg Third constitution party responsibility: No What activities make your symptoms worse ? Standing, Walking, lying on your back Which of the following treat ments have you tried? Anti-Inflammatory medications, Muscle, r elaxants, Narcotic pain medications, Hot packs, Physical Therapy treatment, injections Have you been seen by a [place] ist in the last year? Yes Do [...] Studies MRI lumbar spine completed at the [facility] on 02/09/2023; impression: Very limited examination due [...]
--- OUTSIDE RECORDS SUMMARY | 2025-06-11 11:30 | XMS_ITS ---
Author Organization [facility] [place] Address [address] [place] [address] Care Team Providers Care Product Representative Name Role Phone Kimber Price Primary Care Provider REASON FOR VISIT repeat culture after atb Encounters Encounter Location Date Provider Diagnosis [facility] [address] [place] [address] 06/11/2025 Kimber Price Dysuria R30.0 Assessments Encounter Date Diagnosis (ICD Code) Assessment Notes Treatment Notes Treatment Clinical Notes Section Notes 06/11/2025 Dysuria (ICD-10 - R30.0) Plan Of Treatment Pending Test Test Name Order Date UA (URINALYSIS, COMPLETE) 06/11/2025 CULTURE URINE 06/11/2025 URINE MICROSCOPIC ONLY 06/11/2025 Progress Notes * Letty COFFEY MDOB:[birth year] (79 yo F)Acc No.[id number]:06/11/2025 Patient: Letty BAI :1945 A ge:79 Y S ex:Female Address:[address] [place] [id number] Subjective: * Chief Complaints: * R epeat culture after atb * Medical History: * Surgical History: * Hospitalization/Major Diagno stic Procedure: * Medications: Objective: * Vitals: * Physical Examination: Assessment: * Assessment: 1. D ysuria - R30.0 (Primary) Plan: * Treatment: * Procedure Codes: * true * Date: Generated for Fabián bryan/Nino/Chikis on: 0 06/21/2025 08:53 AM EDT
--- OUTSIDE RECORDS SUMMARY | 2025-06-21 08:53 | XMS_ITS | Patient Health Record ---
Author Organization [facility] Address [address] [place] [address] Care Team Providers Care Carrier Blower Name Role Phone Larry Ross Unavailable [phone] Allergies No Known Allergies Reason For Referral No Information Medications Medication SIG (Take, Route, Frequency, Duration) Notes Start Date End Date Status Aspirin Low Dose Act marietta Baclofen Active Vitamin K2 Active losartan Active Vitamin D3 Active Womens multivitamin with vitamin D3 Active Prolia Active traMADol Active zonisamide Active PreserVision AREDS 2 Active Calcium Active Glucosamine Chondroitin Active niacin Active Social History Tobacco Use: Social History [...] Problem Status W/U Status Risk Notes Problem [id number] Other forms of scoliosis, lumbar region (M41.86) Active confirmed Problem [id number] Spinal stenosis, 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 [address] [place] [address] [id number] GAYATHRI LOPEZ Self - patient is the insured Medical (General) History Medical History History ICD Code High Blood Pressure Osteoporosis Rheumatoid arthritis Surgical History Surgery Date(Month/Year) Tonsillectomy/Adenoidectomy 1956 Cataract surgery 2016 Ruptured appendix 08/1978 Hysterectomy 07/1999
--- OUTSIDE RECORDS SUMMARY | 2025-06-21 08:53 | XMS_ITS | Clinical Summary ---
Author Organization [facility] Address [address], [address] [place] [address] Care Team Providers Care Croze Machine Operator Name Role Phone Matty Sanz DO Primary Care Provider [phone] Allergies No known active allergies Medications MELOXICAM PO Take by mouth as needed Active raloxifene (EVISTA) 60 MG tablet Take 60 mg by mouth daily Active Multiple Vitamins-Minera ls (THERAPEUTIC MULTIVITAMIN-IA NERALS) tablet Take 1 tablet by mouth daily Active CALCIUM PO Take 600 mg by mouth 2 times daily Active GLUCOSAMINE-CHO NDROITIN PO Take by mouth 2 times daily Active Cholecalciferol (VITAMIN D3) 5000 units TABS Take 7,000 Units by mouth daily Active Benedict-3 Fatty Acids (FISH OIL) 1000 MG CAPS [...] on file Insurance [employer] Care Teams Croze Machine Operator Relationship Specialty Start Date End Date Matty Sanz DO PCP - General Internal Medicine 04/15/17
--- OUTSIDE RECORDS SUMMARY | 2025-06-21 08:54 | XMS_ITS | Clinical Summary ---
Author Organization The [facility] Address [address] [place] [address] Care Team Providers Care Maintainer Operator Name Role Phone Emely Kramer MD Primary Care Provider [phone] Allergies No known active allergies Medications omega-3 [...] patient's age to complete this topic Insurance [facility] MEDICARE Care Teams Maintainer Operator Relationship Specialty Start Date End Date Em[facility] Kramer [facility] [address] [facility] P[facility] - General 05/13/23
--- OUTSIDE RECORDS SUMMARY | 2025-06-21 08:54 | XMS_ITS | Patient Health Record ---
Author Organization [facility] [place] Address [address] [place] [address] Care Team Providers Care Auto Service Station Attendant Name Role Phone Kimber Almodovar Primary Care Provider [phone] Trey Motley Ottoniel [phone] Allergies No Known Allergies Results Component Value Reference Range Notes UA (Urinalysis, Dipstix only - w/o micro) Reviewed date:06/05/2025 10:36:47 AM Interpretation: Performing Lab: Notes/Report: COLOR yellow Yellow [...] ESTERASE (REGINA) + NEG - NEG MG/DL XR shoulder LT min 2V Reviewed date:08/07/2024 10:23:32 AM Interpretation: Performing Lab: Notes/Report: Source Facility: [facility]-[address] [place] [address] [place] [address] XRay Report Signed Patient: LETTY COFFEY MR#: [id number] : 1945 Acct:[id number] Age/Sex: 79 / F ADM Date: 08/03/24 Loc: RAD Attending Dr: Mariposa Johnson IN[employer] HEAT TREATER Ordering Physician: Mariposa Johnson NP Date of Service: 08/03/24 Procedure(s): XR shoulder LT min 2V Accession Number(s): [id number] cc: KIMBER ALMODOVAR ; Mariposa Johnson NP [place] [address] Patient Name: LETTY COFFEY MRN: [id number] date: 1945 Sex: F Assigned Patient Location: [facility] Current Patient Location: [facility] Accession/Order Number: [id number] Exam Date: 08/03/2024 10:07 Report Date: 08/07/2024 [...] M.D. Signed By: 08/07/24809 DD/ 6 TD/TT: Material Requirements Worker: MM tomosynthesis screening B I Reviewed date:08/11/2024 12:33:27 PM Interpretation: Performing Lab: Notes/Report: Source Facility: [place] [address] [place] [address] Mammography Report Signed Patient: LETTY COFFEY MR#: [id number] : 1945 Acct:[id number] Age/Sex: 79 / F ADM Date: 08/11/24 Loc: MAMMO Attending Dr: BREANNE HENDERSON Ordering Physician: BREANNE HENDERSON Results: Date of Service: 08/11/24 Follow Up: Procedure(s): MM tomosynthesis screening BI Accession Number(s): [id number] cc: KIMBER ALMODOVAR ; BREANNE HENDERSON Patient Name: LETTY COFFEY MR#: [id number] : 1945 Exam Date: 08/11/2024 Ordering Doctor: [...] Treatments None Family Cancers None LOCATION: [facility] BREAST COMPOSITION: There are scattered areas of [...] Signed By: 08/11/24 1116 DD/ 1116 TD/TT: Material Requirements Worker: KYA hip RT min 2V Reviewed date:08/17/2024 01:38:49 PM Interpretation: Performing Lab: Notes/Report: Source Facility: [facility] [place] [address] [place] [address] XRay Report Signed Patient: LETTY COFFEY MR#: [id number] : 1945 Acct:[id number] Age/Sex: 79 / F ADM Date: 08/15/24 Loc: RAD Attending Dr: Hayes Lepe M.D. Ordering Physician: Hayes Lepe M.D. Date of Service: 08/15/24 Procedure(s): XR hip RT min 2V Accession Number(s): [id number] cc: KIMBER ALMODOVAR ; Hayes Lepe M.D. The [address] [address] Patient Name: LETTY COFFEY MRN: [facility]:[id number] date: 1945 Sex: F Assigned Patient Location: [facility] Current Patient Location: [facility] Accession/Order Number: [id number] Exam Date: 08/15/2024 14:52 Report Date: 08/17/2024 [...] Signed By: 08/17/24 0652 DD/ 0649 TD/TT: Material Requirements Worker: SHELLI CAZARES W or MICROSCOPIC Reviewed date:06/05/2025 10:36:47 AM Interpretation: Performing Lab: Notes/Report: [facility] , Color Urine LT. YELLOW YELLOW Clarity Urine CLOUDY CLEAR Specific [place] Urine 1.020 1.005-1.025 pH Urine 6.0 5.0-9.0 Protein Urine NEGATIVE NEG/TRACE mg/dL Glucose Urine UA NEGATIVE NEGATIVE mg/dL Bilirubin Urine NEGATIVE NEGATIVE Ketones Urine NEGATIVE NEGATIVE mg/dL Blood Urine TRACE-I NEGATIVE Nitrite Urine NEGATIVE NEGATIVE Urobilinogen Urine 0.2 0.2-1.0 EU/dL Leukocyte Esterase Urine LARGE NEGATIVE WBC Urine 75-100 NONE SEEN #/HPF RBC Urine 5-10 0-2 #/HPF Bacteria Urine MODERATE NONE SEEN #/HPF Mucus Urine NONE SEEN NONE SEEN Squamous Epithelial Cell Urine RARE NONE/RARE #/LPF Crystals Seen? Seen None Seen #/HPF Calcium Oxalate Crystals Urine FEW Cast Seen? NONE SEEN NONE SEEN #/LPF Performing Lab: see note ML - [facility] LB Urine Culture - [facility] Reviewed date:06/11/2025 03:31:37 PM Interpretation: Performing Lab: Notes/Report: [facility] , Urine Culture - [facility] See Below For Report [place] Urine Culture - [facility] Isolated Testing performed at [facility] Urine Culture - FR Antibiotic Interpretation SUSHANT Status [facility]: [facility]1 [facility] [address] [place] [address] [place] [facility] Urine Culture - [facility] Isolated Testing performed at [facility] Urine Culture - FR Antibiotic Interpretation SUSHANT Status Organism: 1.1 O:[facility] Urine Culture - [facility] See Below For Report [place] [facility] Urine Culture - [facility] Isolated Testing performed at [facility] Urine Culture - FR Antibiotic Interpretation SUSHANT Status Organism: 1.1 O:[facility] Urine Culture - [facility] See Below For Report [place] [facility] Urine Culture - [facility] Isolated Testing performed at [facility] Urine Culture - FR Antibiotic Interpretation SUSHANT Status Organism: 1.1 O:[facility] Urine Culture - [facility] >100,000 [place] [facility] Urine Culture - [facility] Isolated Testing performed at [facility] Urine Culture - FR Antibiotic Interpretation SUSHANT Status Organism: 1.1 O:[facility] Urine Culture - [facility] See Below For Report [place] [facility] Urine Culture - [facility] Isolated Testing performed at [facility] Urine Culture - FR Antibiotic Interpretation SUSHANT Status Organism: [facility] Ampicillin S F [place] [facility] Urine Culture - [facility] Isolated Testing performed at [facility] Urine Culture - [facility] Antibiotic Interpretation SUSHANT Status Organism: 1.1 [facility] Daptomycin S F [place] [facility] Urine Culture - [facility] Isolated Testing performed at [facility] Urine Culture - FR Antibiotic Interpretation SUSHANT Status Organism: 1.1 [facility] - [facility] Levofloxacin S F [place] [facility] Urine Culture - [facility] Isolated Testing performed at [facility] Urine Culture - FR Antibiotic Interpretation SUSHANT Status Organism: 1.1 O:[facility] Urine Culture - [facility] Linezolid S F [place] [facility] Urine Culture - [facility] Isolated Testing performed at [facility] Urine Culture - FR Antibiotic Interpretation SUSHANT Status Organism: 1.1 O:[facility] Urine Culture - [facility] Nitrofurantoin S F [place] [facility] Urine Culture - [facility] Isolated Testing performed at [facility] Urine Culture - FR Antibiotic Interpretation SUSHANT Status Organism: 1.1 O:[facility] Urine Culture - [facility] Tetracycline S F [place] [facility] Urine Culture - [facility] Isolated Testing performed at [facility] Urine Culture - FR Antibiotic Interpretation SUSHANT Status Organism: 1.1 O:[facility] Urine Culture - [facility] Vancomycin S F [place] [facility] Urine Culture - [facility] Isolated Testing performed at [facility] Urine Culture - FR Antibiotic Interpretation SUSHANT Status Organism: 1.1 O:[facility] Urine Culture - [facility] Ciprofloxacin I F [place] [facility] Urine Culture - [facility] Isolated Testing performed at [facility] Urine Culture - FR Antibiotic Interpretation SUSHANT Status Organism: 1.1 O:ENTF[facility] Performing Lab: see note ML - [facility] LB SEE REPORT - Station [place] Id information not found for OBX-specific film producer legend MR lee LT wo con Reviewed date:08/28/2024 12:07:54 PM Interpretation: Performing Lab: Notes/Report: Source Facility: [place] [address] Magnetic Resonance Report Signed Patient: LETTY COFFEY MR#: [id number] : 1945 Acct:[id number] Age/Sex: 79 / F ADM Date: 08/22/24 Loc: MRI Attending Dr: Hayes Lepe M.D. Ordering Physician: Hayes Lepe M.D. Date of Service: 08/22/24 Procedure(s): MR lee LT wo con Accession Number(s): [id number] cc: KIMBER ALMODOVAR ; Hayes Lepe M.D. [place] [address] Patient Name: LETTY COFFEY MRN: [facility]:[id number] date: 1945 Sex: F Assigned Patient Location: MRI Current Patient Location: MRI Accession/Order Number: [id number] Exam Date: 08/22/2024 09:00 Report Date: 08/23/2024 [...] Signed By: 08/23/24 1141 DD/ 1139 TD/TT: Material Requirements Worker: XR DEXA axial skeleton Reviewed date:08/09/2024 11:11:46 AM Interpretation: Performing Lab: Notes/Report: Source Facility: [place] [address] XRay Report Signed Patient: LETTY COFFEY MR#: [id number] : 1945 Acct:[id number] Age/Sex: 79 / F ADM Date: 08/07/24 Loc: RAD Attending Dr: KIMBER ALMODOVAR Ordering Physician: KIMBER ALMODOVAR Date of Service: 08/07/24 Procedure(s): XR DEXA axial skeleton Accession Number(s): [id number] cc: KIMBER ALMODOVAR [place] [address] Patient Name: LETTY COFFEY MRN: [id number] date: 1945 Sex: F Assigned Patient Location: [facility] Current Patient Location: [facility] Accession/Order Number: [id number] Exam Date: 08/07/2024 08:55 Report Date: 08/09/2024 [...] prevention and treatment of osteoporosis. Osteoporos Int. 2021;33(10):6562-7376. doi: 10.1007/x86955-893-70567-g. Epub 2021Jan 22. Erratum in: Osteoporos Int. 2021Apr 23;: PMID: [id number]; PMCID: [id number]. Electronically authenticated by: YOUSUF ORTIZ Date: 08/09/2024 07:30 Dictated By: Yousuf Ortiz M.D. Signed By: 08/09/24 0733 DD/ TD/TT: Material Requirements Worker: CREATININE Reviewed date:08/07/2024 10:23:32 AM Interpretation: Performing Lab: Notes/Report: [facility] , Creatinine 0.78 0.55-1.02 mg/dL Estimated GFR ( Ginger >60 >=60 mL/min/1.73m 2 Estimated GFR (Non- Miriam >60 >=60 mL/min/1.73m 2 Performing Lab: see note ML - [facility] LB CALCIUM Reviewed date:08/07/2024 10:23:32 AM Interpretation: Performing Lab: Notes/Report: [facility] , Calcium 9.3 8.5-10.1 mg/dL Performing Lab: see note - [facility] LB CREATININE Reviewed date:02/08/2025 03:45:06 PM Interpretation: Performing Lab: Notes/Report: [facility] , Creatinine 0.58 0.55-1.02 mg/dL Estimated GFR ( Ginger >60 >=60 mL/min/1.73m 2 Estimated GFR (Non- Miriam >60 >=60 mL/min/1.73m 2 Performing Lab: see note ML - [facility] LB CALCIUM Reviewed date:02/08/2025 03:44:08 PM Interpretation: Performing Lab: Notes/Report: [facility] , Calcium 9.1 8.5-10.1 mg/dL Performing Lab: see note - [facility] LB Reason For Referral No Information Medications Medication SIG (Take, Route, Frequency, Duration) Notes Start Date End Date Status Diclofenac Sodium 75 MG 1 tablet as need ed Orally Twice a day; Duration: 14 days 11/13/2024 Active Womens 50+ Multi Vitamin - as directed Orally Active Vitamin K2 100 MCG as directed Orally Active Calcium 600 MG 1 tablet with meals Orally Once Active Vitamin D 25 MCG (1000 UT) 1 tablet Orally Once a day Active Baclofen 10 MG TAKE 1 TABLET BY NASEEM TH Oral BID; Duration: 30 days Active traMADol HCl 50 MG 1 tablet as needed Orally Once a day PAIN CL[facility]IC 11/13/2024 Active Magnesium Glycinate 100 MG 2 capsule Orally Daily Activ e Losartan Potassium 25 MG TAKE 1 TABLET BY MOUTH EVERY DAY; Duration: 90 days Active Zhlcbg-Qultf-ACX-Double Str 500-400-167 MG 1 tablet Orally BID Ac tive Fish Oil 1200 MG 1 capsule Orally bid Active Zonisamide 50 MG 3 cap Oral Q HS; Duration: 30 days Active Aspirin 81 81 MG 1 tablet Orally Once a day Active Prolia 60 MG/ML as directed Subcutaneous Active PreserVision AREDS 2 - 2 aday Orally Daily Active Niacin 500 MG 1 tablet with food Orally Once a day Active Doxycycline Monohydrate 100 MG 1 capsule Orally Twice a day; Duration: 06/08/2025 Active Social History Tobacco Use: Social History Observation Description Date Details (start date - stop date) Never Smoker NA - NA Tobacco Use/Smoking Question Answer Notes Patient is a nonsmoker Alcohol Screen (Audit-C) Question Answer Notes Did you have a drink containing alcohol in the p ast year? No Points 0 Interpretation Negative AUDIT-C (Standard) Question Answer Notes Did you have a drink containing alcohol in the p ast year? No Points 0 Interpretation Negative Problems Problem Type SNOMED Code ICD Code Onset Dates Problem Status W/U Status Risk Notes Problem Essential hypertension (82650016) Essential (primary) hypertension (I10) Active confirmed Problem Age-related osteoporosis (932272487) Age-related osteoporosis without current pathological fracture (M81.0) Active confirmed Problem Chronic maxillary sinusitis (91268464) Chronic maxillary sinusitis (J32.0) Active confirmed Problem Hyperlipidemia (52765125) Hyperlipidemia (E78.5) Active confirmed Problem Rotoscoliosis (M41.80) Active confirmed Vital Signs Blood pressure diastolic 60 mm Hg 06/04/2025 Height 61.5 in 06/04/2025 Blood pressure systolic 122 mm Hg 06/04/2025 Weight 150.4 lbs 06/04/2025 BMI 27.95 kg/m2 06/04/2025 Encounters Encounter Location Date Provider Diagnosis [facility] [address] [place] [address] 07/31/2024 Kimber Almodovar Age-related osteoporosis without current pathological fracture M81.0 [facility] [address] [place] [address] 08/11/2024 Kimber Almodovar [facility] [address] [place] [place] [address] 05/17/2025 Kimber Almodovar UTI symptoms R39.9 [facility] [address] [place] [address] 06/05/2025 Kimber Almodovar [facility] [address] [place] [address] 06/11/2025 Kimber Almodovar Dysuria R30.0 [facility] [address] [place] [address] 06/07/2025 Trey Hoy Dysuria R30.0 [facility] [address] [place] [address] 11/13/2024 Kimber Almodovar Left hand pain M79.6 42 [facility] [address] [place] [address] 05/17/2025 Kimber Almodovar UTI symptoms R39.9 [facility] [address] [place] [address] 06/04/2025 Kimber Almodovar Dysuria R30.0 Assessments Encounter Date Diagnosis (ICD [...] M81.0) 05/17/2025 UTI symptoms (ICD-10 - R39.9) 06/11/2025 Dysuria (ICD-10 - R30.0) 06/07/2025 Dysuria (ICD-10 - R30.0) Plan Of Treatment Pending Test Test Name Order Date CMP (COMPLETE METABOLIC PANEL) 4 UA (URINALYSIS, COMPLETE) 06/04/2025 UA (URINALYSIS, COMPLETE) 06/11/2025 HEMOGLOBIN A1C (GLYCO) 01/26/2024 IRON, TOTAL 01/26/2024 LIPID PANEL (CHOL/TRIG/HDL/LDL) 01/26/20 24 CBC WITH DIFF 01/26/2024 VITAMIN D, 25 LEVEL (TOTAL) 01/26/2024 DEXA Axial Skeleton (hips, pelvis, spine )* 07/31/2024 Urine Culture 06/04/2025 Insulin Level 01/26/2024 CULTURE URINE 06/11/2025 URINE MICROSCOPIC ONLY 06/11/2025 THYROID PANEL (T4/TSH/FREE T3) 4 Insurance Providers Payer Name Payer Address Payer Phone Subscriber Number Group Number Insured Name Patient Relationship to Insured Coverage Start Date Coverage End Date MEDICARE [place] [address] [address] [id number] ErlindaNaunLetty Self - patient is the insured O MEDICARE SUPPLEMENT [address] [place] [address] [id number] Letty Coffey Self - patient is the insured Medical (General) History Medical History History ICD Code Hypertension I10 Osteoporosis M81.0 Low back pain associated wit h a spinal disorder other than radiculopathy or spinal stenosis M54.50 Surgical History Surgery Date(Month/Year) appendectomy hysterectomy Hospitalization History Reason Date(Month/Year) see above
--- OUTSIDE RECORDS SUMMARY | 2025-06-21 08:57 | XMS_ITS | CCD ---
Author Organization [facility] Care Team Providers Care Community Assistant Name Role Phone EMRE STAPLETON Unavailable Unavailable [...] Unavailable THOMAS, DR LUIS Becker Attending Unavailable MARTHA, DR [...] LEES ., DR YULI Nguyen Attending Unavailable BRUTUS, DR YOUSUF Ferguson Consulting Unavailable THOMAS, DR [...] Unavailable Wiley Price MD Primary Care Provider [phone] Wiley Price MD Primary Care Provider [phone] DUSTY NASSAR Attending Unavailable DUSTY NASSAR Attending Unavailable DUSTY NASSAR Attending Unavailable DUSTY NASSAR Attending Unavailable DUSTY NASSAR Attending Unavailable KRISS VELEZ E Attending Unavailable DUSTY NASSAR Attending Unavailable DUSTY NASSAR Attending Unavailable DUSTY NASSAR Attending Unavailable Giedraitis , Andrius Vytautorlin Attending Unavailable Giedraitis , Andrius Vytautas Attending Unavailable Giedraitis , Andrius Vytautas Attending Unavailable Giedraitis , Andrius Vytautas Attending Unavailable Giedraitis , Andrius Vytautas Attending Unavailable Giedraitis , Andrius Vytautas Attending Unavailable Giedraitis , Andrius Vytautas Attending Unavailable Giedraitis , Andrius Vytautas Attending Unavailable Giedraitis MD, Gianna Ram Attending Unavailable Allergies Allergy Classification Reported Allergen(s) Allergy Type Date of Onset Reaction(s) Facility (1 source) ALLERGIES NOT ON FILE; Translations: [ALLERGIES NOT ON FILE] Propensity to adverse reactions (disorder) [facility] Repository Medications Current Medications Medication Drug [...] mg oral tablet (19 sources) Glucosamine-Eugene droitin-MSM (Gmzexm-Egoen-FKC-Double Str) 500-400-167 MG tablet every 12 (twelve) hours Active 1 ml denosumab 60 mg/ml prefilled syringe (20 sources) RANK Ligand Inhibitor denosumab (Prolia) 6 0 MG/ML solution prefilled syringe as directed Subcutaneous Active Fish Oils (5 sources) take 1 capsule by mouth once daily Fish Oil 1000 MG 1 capsule Orally Once a day Active Cocgbe-Sknz-CIV-Ca-C-CtCl -SeCu - (5 sources) Tssinr-Dxuc-UIC- Xx-M-OpDc-SeCu - as directed Orally Active losartan potassium 25 mg oral tablet (20 sources) Angiotensin 2 Receptor Héctor Star t: 04-04-15 losartan (Cozaar) 25 MG tabl et Oral [...] each day at the same time Active [place]-3 Fatty Acids (Fish Oil) 1200 MG capsule delayed-release (19 sources) take 1 capsule by mouth every twelve hours [place]-3 Fatty Acids (Fish Oil) 1200 MG capsule [...] unspecified] Chronic Other aftercare (3 sources) Other custodial (current) drug therapy; Translations: [OT INTERMEDIATE CURRENT DRUG THERAPY] Onset: 03-12-2022 Episodic Other [...] Agent - OD - Right Eyeon 05-30-2025 [facility] Radiology Study observation (narrative) [facility] Left eye Ophthalmologic chata tmenton 05-23-2025 [facility] Radiology Study observation (narrative) [facility] Optical coherence tomography study reporton 05-23-2025 [facility] Radiology Study observation (narrative) [facility] Intravitreal Injection, Phar macologic Agent - OD - Right Eyeon 04-18-2025 [facility] Radiology Study observation (narrative) [facility] Optical coherence tomography study reporton 04-18-2025 [facility] Radiology Study observation (narrative) [facility] Intravitreal Injection, Phar macologic Agent - OD - Right Eyeon 03-07-2025 [facility] Radiology Study observation (narrative) [facility] Optical coherence tomography study reporton 03-05-2025 [facility] Left eye Ophthalmologic chata tmenton 02-28-2025 [facility] Radiology Study observation (narrative) [facility] Optical coherence tomography study reporton 02-28-2025 Radiology Study observation (narrative) [facility] Left eye Ophthalmologic chata tmenton 09-26-2024 [facility] Radiology Study observation (narrative) [facility] Optical coherence tomography study reporton 09-26-2024 [facility] Radiology Study observation (narrative) [facility] Left eye Ophthalmologic chata tmenton 07-25-2024 [facility] Radiology Study observation (narrative) [facility] Optical coherence tomography study reporton 07-25-2024 [facility] Radiology Study observation (narrative) [facility] Left eye Ophthalmologic chata tmenton 05-30-2024 [facility] Radiology Study observation (narrative) [facility] Optical coherence tomography study reporton 05-30-2024 [facility] Radiology Study observation (narrative) [facility] 36on 05-17-2023 36 Spoke with patient. [...] refer her to someone who does SCS. [facility] on 05-14-2023 36 Left message for an reynoso [...] back on Wednesday to follow-up regarding this. [facility] Telephoneon 05-14-2023 Telephone [phone] [id number] F Date Provider Department Center 05/14/2023 ALLISON SKAGGS [facility] [place] Family History Problem Relation Age of Onset Other Mother Stomach cancer Father Family Status - Relation Status Age at Mother Father [facility] Consulton 05-13-2023 Consult [id number] [id number] F Date Provider Department Center 05/13/2023 148ELICEO [facility] SURG [place] Family History Problem Relation Age of Onset Other Mother Stomach cancer Father Family Status - Relation Status Age at Mother Father Level of Service:85919 [place] OFFICE/OUTPATIENT NEW MODERATE MDM 45-59 MINUTES Reason for Visit and Comments: Consult [484] - Pt is here for a CO visit for Spinal Stenosis. 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 Imaging requested from Brent. Dusty [facility] MRI LSPINE WO CONon 02-11-20 23 [...] Date: 2023-02-10 07:16 Normal [facility] CALCIUMon 12-24-2022 Calcium [Mass/Vol] 9.7 mg/dL Normal 8.5-10.1 [facility] Comment on above: Performed By: #### C A, CREA ####[facility] [address] [place] [address]Dr. Holly Fisher CREATININEon 12-24-2022 Creatinine [Mass/Vol] 0.62 mg/dL Normal 0.55-1.02 [facility] Comment on above: Performed By: #### C Dora, CREA ####[facility] [address] [place] [address]Dr. [facility] EGFR-AF KENYAN >60 Normal >=60 [facility] Comment on above: Performed By: #### C A, CREA ####[facility] [address] [place] [address]Dr. [facility] EGFR-NON AF KENYAN >60 Normal >=60 [facility] Comment on above: Performed By: #### C A, CREA ####[facility] [address] [place], [place] [address]Dr. ban Fisher Covid-19 PCR (CVDTBH)on SARS-CoV-2 (COVID-19) RNA FRED+probe Ql (Unsp spec) Not detected Normal NOT DETECTED [facility] Comment on above: Result Comment: This test is not yet approved or cleared by the [place] FDA. When there are no FDA-approved or cleared tests available, and other criteria are met, FDA can make tests available under an emergency access mechanism called an Emergency Use Authorization (EUA). The EUA for this test is supported by the [place] of Health and Human Service's (HHS's) declaration [...] with SARS-CoV-2. Performed By: #### C VDTBH ####[facility] [address] [place], [place] [address]TbDr. Holly Fisher Covid-19 PCR ([facility])on 07-28 SARS-CoV-2 (COVID-19) RNA FRED+probe Ql (Unsp spec) Not detected Normal NOT DETECTED [facility] Comment on above: Result Comment: This test is not yet approved or cleared by the [place] FDA. When there are no FDA-approved or cleared tests available, and other criteria are met, FDA can make tests available under an emergency access mechanism called an Emergency Use Authorization (EUA). The EUA for this test is supported by the [employer] Special[employer] of Health and Human Service's (HHS's) declaration [...] By: #### C VDTB #### [facility] Laboratory [address] [place], [place] [address] Dr. Holly Fisher CALCIUMon 06-12-2022 Calcium [Mass/Vol] 9.0 mg/dL Normal 8.5-10.1 [facility] Comment on above: Performed By: #### C XAVIER ALMEIDA ####[facility] [address] [place] [id number]. Holly Fisher CREATININEon 06-12-2022 Creatinine [Mass/Vol] 0.65 mg/dL Normal 0.55-1.02 [facility] Comment on above: Performed By: #### C XAVIER ALMEIDA #### [facility] Laboratory [address] [place] [place] [address] [address] Holly Fisher EGFR-AF KENYAN >60 Normal >=60 [facility] Comment on above: Performed By: #### C XAVIER ALMEIDA #### [facility] [address] [address] [address] Holly Fisher EGFR-NON AF KENYAN >60 Normal >=60 [facility] Comment on above: Performed By: #### C XAVIER ALMEIDA #### [facility] [address] [address] [address] Holly Fisher XR LSPINE W_OBLS AND [...] Date: 2022-05-04 08:47 Normal [facility] CBC AUTO DIFFon 03-05-2022 BASO # 0.1 103/ul Normal 0.0-0.1 [facility] Comment on above: Performed By: #### C BC ####[facility] [address] [place] [id number]. Holly Fisher Basophils/100 WBC (Bld) 1.0 % Normal 0.2-2.0 [facility] Comment on above: Performed By: #### C BC ####[facility] [address] [place] [id number]. Holly Fisher EO # 0.2 103/ul Normal 0.0-0.[address] [facility] Comment on above: Performed By: #### C BC ####[facility] [address] [place], [place] [address]Dr. Holly Fisher Eosinophils/100 WBC (Bld) 2.4 % Normal 0.9-7.0 [facility] Comment on above: Performed By: #### C BC ####[facility] [address] [place], [place] [address]Dr. Holly Fisher Erythrocyte distribution width (RBC) [Ratio] 14.4 % Normal 11.0-15.0 [facility] Comment on above: Performed By: #### C BC ####[facility] [address] [place], [place] [address]Dr. Holly Fisher Hematocrit (Bld) [Volume fraction] 41.1 % Normal 36.0-48.0 [facility] Comment on above: Performed By: #### C BC ####[facility] [address] [place], [place] [address]Dr. Holly Fisher Hemoglobin (Bld) [Mass/Vol] 13.4 g/dL Normal 12.0-16.0 [facility] Comment on above: Performed By: #### C BC ####[facility] [address] [place], [place] [address]Dr. Holly Fisher IG # 0.03 10e3/ul Normal 0.00-0.[address] [facility] Comment on above: Performed By: #### C BC ####[facility] [address] [place], [place] [address]Dr. Holly Fisher IG % 0.5 % Normal 0.0-0.[address] [facility] Comment on above: Performed By: #### C BC ####[facility] [address] [place], [place] [address]Dr. Holly Fisher LYMPH # 1.5 103/ul Normal 1.2-3.[address] [facility] Comment on above: Performed By: #### C BC ####[facility] [address] [place] [id number]. Holly Fisher Lymphocytes/100 WBC (Bld) 24.3 % Normal 20.5-60.0 [facility] Comment on above: Performed By: #### C BC ####[facility] [address] [place] [address]Dr. Holly Fisher MANUAL DIFF REQ NO Normal [facility] Comment on above: Performed By: #### C BC ####[facility] [address] [place] [id number]. Holly Phillip MCH (RBC) [Entitic mass] 30.3 pg Normal 26.7-34.0 [facility] Comment on above: Performed By: #### C BC ####[facility] [address] [place], [place] [address]Dr. Holly Phillip MCHC (RBC) [Mass/Vol] 32.6 g/dL Normal 29.9-35.[address] [facility] Comment on above: Performed By: #### C BC ####[facility] [address] [place], [place] [address]Dr. Holly Phillip MCV (RBC) [Entitic vol] 93.0 fL Normal 81.0-99.0 [facility] Comment on above: Performed By: #### C BC ####[facility] [address] [place], [place] [address]Dr. Lindaban Phillip MONO # 0.5 103/ul Normal 0.3-0.[address] [facility] Comment on above: Performed By: #### C BC ####[facility] [address] [place], [place] [address]Dr. Lindaban Fisher Monocytes/100 WBC (Bld) 7.3 % Normal 1.7-12.[address] [facility] Comment on above: Performed By: #### C BC ####[facility] [address] [place], [place] [address]Dr. Holly Fisher NEUT # 4.1 103/ul Normal 1.4-6.[address] [facility] Comment on above: Performed By: #### C BC ####[facility] [address] [place] [address]Dr. Holly Fisher Neutrophils/100 WBC (Bld) 64.5 % Normal 43.0-75.[address] [facility] Comment on above: Performed By: #### C BC ####[facility] [address] [place] [id number]. Holly Fisher Platelet mean volume (Bld) [Entitic vol] 10.5 fL Normal 9.5-13.[address] [facility] Comment on above: Performed By: #### C BC ####[facility] [address] [place] [id number]. Holly Fisher PLT 253 103/ul Normal 150-[address] [facility] Comment on above: Performed By: #### C BC ####[facility] [address] [place] [id number]. Holly Fisher RBC 4.42 106/ul Normal 4.20-5.[address] [facility] Comment on above: Performed By: #### C BC ####[facility] [address] [place] [address]Dr. Holly Fisher WBC 6.3 103/ul Normal 4.0-11.[address] [facility] Comment on above: Performed By: #### C BC ####[facility] [address] [place] [address]Dr. Holly Fisher LIPID PROFILEon 03-05-2022 CHOL-HDL RATIO NORM SEE BELOW Normal [facility] Comment on above: Result Comment: 3.3 - 4.4 LOW RISK 4.4 - 7.1 AVERAGE RISK 7.1 - 11.0 MODERATE RISK >11.0 HIGH RISK Performed By: #### L IPID, CMP #### [facility] Laboratory [address] [place] [address] Dr. Holly Fisher Cholesterol [Mass/Vol] 263 mg/dL Critically high <=[address] [facility] Comment on above: Performed By: #### L IPID, CMP #### [facility] [address] [address] [address] Holly Fisher Cholesterol in HDL [Mass/Vol] 63 mg/dL Critically high 40-60 [facility] Comment on above: Performed By: #### L IPID, CMP #### [facility] [address] [address] [address] Holly Fisher Cholesterol in LDL [Mass/Vol] 160.2 mg/dL Normal [facility] Comment on above: Performed By: #### L IPID, CMP #### [facility] [address] [address] [address] Holly Fisher Cholesterol.total/ Cholesterol in HDL [Mass ratio] 4.2 {ratio} Normal [facility] Comment on above: Performed By: #### L IPID, CMP #### [facility] [address] [place] [address] Dr. Holly Fisher HDL NORMAL > or = 60 mg/dl - LO W CARDIOVASCULAR RISK <40 mg/dl - HIGH CARDIOVASCULAR RISK Normal [facility] Comment on above: Performed By: #### L IPID, CMP #### [facility] [address] [address] [address] Holly Fisher LDL CALC NORMAL SEE BELOW Normal [facility] Comment on above: Result Comment: <100 mg/dl OPTIMAL 100 - 129 mg/dl NEAR OR ABOVE OPTIMAL 130 - 159 mg/dl BORDERLINE HIGH 160 - 189 mg/dl HIGH >190 mg/dl VERY HIGH Performed By: #### L IPID, CMP #### [facility] [address] [address] [address] Holly Fisher Triglyceride [Mass/Vol] 199 mg/dL Critically high <=[address] [facility] Comment on above: Performed By: #### L IPID, CMP #### [facility] [address] [place] [address] Dr. Holly Fisher VLDL CALC 39.8 mg/dL Normal [facility] Comment on above: Performed By: #### L IPID, CMP #### [facility] [address] [place] [address] Dr. Holly Fisher MG MAMM SCREEN 3D SHERRIE CADon 03-05-2022 MG MAMM SCREEN 3D SHERRIE CAD Patient: LETTY COFFEY Exam Date: 03/05/2022 : 1945 Gender:F Ordering : DR LUIS THOMAS M.D. Admission #: [id number] Family : Order #: [id number] CLICK HERE TO VIEW EXAM RADIOLOGY REPORT [...] No Treatments None Family Cancers None LOCATION: [facility] BREAST COMPOSITION: Scattered areas fibroglandular density. [...] Ortiz MD on 03/05/2022 at 09:55 Normal [facility] PROF 14(COMP METB)on 022 Albumin [Mass/Vol] 3.9 g/dL Normal 3.4-5.0 [facility] Comment on above: Performed By: #### L IPID, CMP #### [facility] [address] [place] [address] Dr. Holly Fisher Albumin/Globulin [Mass ratio] 1.1 {ratio} Normal [facility] Comment on above: Performed By: #### L IPID, CMP #### [facility] [address] [address] [address] Holly Fisher ALP [Catalytic activity/Vol] 54 U/L Normal 46-116 [facility] Comment on above: Performed By: #### L IPID, CMP #### [facility] [address] [place] [address] Dr. Holly Fisher ALT [Catalytic activity/Vol] 22 U/L Normal 14-59 [facility] Comment on above: Performed By: #### L IPID, CMP #### [facility] [address] [place] [address] Dr. Holly Fisher Anion gap [Moles/Vol] 12.5 mmol/L Normal [facility] Comment on above: Performed By: #### L IPID, CMP #### [facility] [address] [place] [address] Dr. Holly Fisher AST [Catalytic activity/Vol] 14 U/L Critically low 15-37 [facility] Comment on above: Performed By: #### L IPID, CMP #### [facility] [address] [place] [address] Dr. Holly Fisher Bilirubin [Mass/Vol] 0.4 mg/dL Normal 0.2-1.0 [facility] Comment on above: Performed By: #### L IPID, CMP #### [facility] [address] [place] [address] Dr. Holly Fisher Calcium [Mass/Vol] 8.6 mg/dL Normal 8.5-10.1 [facility] Comment on above: Performed By: #### L IPID, CMP #### [facility] [address] [place] [address] Dr. Holly Fisher Chloride [Moles/Vol] 106 mmol/L Normal 98-107 [facility] Comment on above: Performed By: #### L IPID, CMP #### [facility] [address] [place] [address] Dr. Holly Fisher CO2 [Moles/Vol] 26.8 mmol/L Normal 21.0-32.0 [facility] Comment on above: Performed By: #### L IPID, CMP #### [facility] [address] [place] [address] Dr. Holly Fisher Creatinine [Mass/Vol] 0.60 mg/dL Normal 0.55-1.02 [facility] Comment on above: Performed By: #### L IPID, CMP #### [facility] [address] [place] [address] Dr. Holly Fisher EGFR-AF KENYAN >60 Normal >=60 [facility] Comment on above: Performed By: #### L IPID, CMP #### [facility] [address] [place] [address] Dr. Holly Fisher EGFR-NON AF KENYAN >60 Normal >=60 [facility] Comment on above: Performed By: #### L IPID, CMP #### [facility] [address] [place] [address] Dr. Holly Fisher Globulin (S) [Mass/Vol] 3.4 g/dL Normal [facility] Comment on above: Performed By: #### L IPID, CMP #### [facility] [address] [place] [address] Dr. Holly Fisher Glucose [Mass/Vol] 98 mg/dL Normal 74-106 [facility] Comment on above: Performed By: #### L IPID, CMP #### [facility] [address] [place] [address] Dr. Holly Fisher Potassium [Moles/Vol] 4.3 mmol/L Normal 3.5-5.1 [facility] Comment on above: Performed By: #### L IPID, CMP #### [facility] [address] [place] [address] Dr. Holly Fisher Protein [Mass/Vol] 7.3 g/dL Normal 6.4-8.2 [facility] Comment on above: Performed By: #### L IPID, CMP #### [facility] [address] [place] [address] Dr. Holly Fisher Sodium [Moles/Vol] 141 mmol/L Normal 136-145 [facility] Comment on above: Performed By: #### L IPID, CMP #### [facility] [address] [place] [address] Dr. Holly Fisher Urea nitrogen [Mass/Vol] 14.0 mg/dL Normal 7.0-18.0 [facility] Comment on above: Performed By: #### L IPID, CMP #### [facility] [address] [place] [address] Dr. Holly Fihser Urea nitrogen/Creatinin e [Mass ratio] 23.3 mg/mg Normal [facility] Comment on above: Performed By: #### L IPID, [facility] #### [facility] [address] [place] [address] Dr. Holly Fisher XR DEXA BONE DENSITYon [...] by: YOUSUF ORTIZ Date: 2022-03-05 10:00 Normal [facility] History and Physicalon 04-27 HIM IP Note OR Hot Room Attendant Normal [facility] OPERATIVE REPORTon 7 [facility] LETTY COFFEY : 49MED REC NO: [id number] ROOM:ACCOUNT NO: [id number] ADMISSION DATE: 04/27/17PHYSICIAN: EMRE STAPLETONDATE OF PROCEDURE: [...] used to engage the membrane in a ipugr-tfx-swfo technique andthe membrane was elevated from the [...] well without complications.EMRE Llanes DABSHAVOND:04/27/2017 9:59:31 CD/V_VGPRS_TJob#: [id number] Doc#: [id number] [facility] Vital Signs Date Time Vital Sign Value Performing Clinician Facility 05-24-2025 10:16-0400 Body weight 68.04 kg Kriss Agustin DO Work Phone: [facility] [employer] 05-24-2025 10:16-0400 Diastolic blood pressure 70 mm[Hg] Kriss Rinkes DO Work Phone: [facility] [employer] 05-24-2025 10:16-0400 Systolic blood pressure 120 mm[Hg] Kriss Rinkes DO Work Phone: [facility] [employer] 06-30-2023 09:15-0400 Body height 158.75 cm Luis Thomas Other [employer] Other 06-30-2023 09:15-0400 Body mass index (BMI) [Ratio] 30.95 kg/m2 Luis Thomas Other [employer] Other 06-30-2023 09:15-0400 Body temperature 96.5 [degF] Luis Thomas Other [employer] Other 06-30-2023 09:15-0400 Body weight 78.02 kg Luis Thomas Other [employer] Other 06-30-2023 09:15-0400 Diastolic blood pressure 76 mm[Hg] Luis Thomas Other [employer] Other 06-30-2023 09:15-0400 Systolic blood pressure 156 mm[Hg] Luis Thomas Other [employer] Other 04-13-2023 15:00-0400 Body height 158.75 cm Luis Thomas Other [employer] Other 04-13-2023 15:00-0400 Body mass index (BMI) [Ratio] 31.49 kg/m2 Luis Thomas Other [employer] Other 04-13-2023 15:00-0400 Body weight 79.38 kg Luis Thomas Other [employer] Other 04-13-2023 15:00-0400 Diastolic blood pressure 78 mm[Hg] Luis Thomas Other [employer] Other 04-13-2023 15:00-0400 Systolic blood pressure 135 mm[Hg] Luis Thomas Other [employer] Other 03-18-2023 08:40-0400 Body height 158.75 cm Ej Thomas Other [employer] Other 03-18-2023 08:40-0400 Body mass index (BMI) [Ratio] 31.67 kg/m2 Ej Thomas Other [employer] Other 03-18-2023 08:40-0400 Body weight 79.83 kg Ej Thomas Other [employer] Other 03-18-2023 08:40-0400 Diastolic blood pressure 84 mm[Hg] Ej Thomas Other [employer] Other 03-18-2023 08:40-0400 Systolic blood pressure 134 mm[Hg] Ej Thomas Other [employer] Other 01-21-2023 11:00-0400 Body height 158.75 cm Luis Thomas Other [employer] Other 01-21-2023 11:00-0400 Body mass index (BMI) [Ratio] 32.21 kg/m2 Luis Thomas Other [employer] Other 01-21-2023 11:00-0400 Body weight 81.19 kg Luis Thomas Other [employer] Other 01-21-2023 11:00-0400 Diastolic blood pressure 82 mm[Hg] Luis Thomas Other [employer] Other 01-21-2023 11:00-0400 SaO2% (BldA) [Mass fraction] 97 % Luisluther Thomas Other [employer] Other 01-21-2023 11:00-0400 Systolic blood pressure 142 mm[Hg] Luis Thomas Other [employer] Other Encounters Encounter Date Encounter Type Care Provider Facility Start: 06-11-2025 End: 06-11-2025 ambulatory Gianna Kelley MD Facility:[facility] Start: 05-30-2025 End: 05-30-2025 Bamboo flowsheet Dusty Nassar DO Work Phone: [facility] Start: 05-30-2025 End: 05-30-2025 Bamboo flowsheet Dusty Nassar DO Work Phone: [facility] Start: 05-30-2025 End: 05-30-2025 Follow-up encounter Dusty Nassar DO Work Phone: [facility] Comment on above: Follow-up; Retinal I njection Start: 05-30-2025 End: 05-30-2025 ambulatory DUSTY NASSAR Not Available Start: 05-24-2025 End: 05-24-2025 Bamboo flowsheet Kriss E Rinkes DO Work Phone: [facility] Start: 05-24-2025 End: 05-24-2025 Bamboo flowsheet Kriss E Rinkes DO Work Phone: [facility] Start: 05-24-2025 End: 05-24-2025 Office outpatient visit 25 minutes Kriss E Rinkes DO Work Phone: [facility] Comment on above: Vaginal atrophy (Maggie genna Dx); Encounter for screening mammogram for breast cancer; Cystocele, midline Start: 05-24-2025 End: 05-24-2025 ambulatory KRISS VELEZ Not Available Start: 05-23-2025 End: 05-23-2025 Bamboo flowsheet Dusty Nassar DO Work Phone: [facility] Start: 05-23-2025 End: 05-23-2025 Bamboo flowsheet Dusty Nassar DO Work Phone: [facility] Start: 05-23-2025 End: 05-23-2025 Clinical Support Dusty Nassar DO Work Phone: [facility] Comment on above: Retinal Injection; M acular Degeneration Start: 04-18-2025 End: 04-18-2025 Bamboo flowsheet Dusty Nassar DO Work Phone: [facility] Start: 04-18-2025 End: 04-18-2025 Bamboo flowsheet Dusty Nassar DO Work Phone: [facility] Start: 04-18-2025 End: 04-18-2025 Clinical Support Dusty Nassar DO Work Phone: [facility] Comment on above: Retinal Injection; M acular Degeneration Start: 03-07-2025 End: 03-07-2025 Bamboo flowsheet Dusty Nassar DO Work Phone: [facility] Start: 03-07-2025 End: 03-07-2025 Bamboo flowsheet Dusty Nassar DO Work Phone: [facility] Start: 03-07-2025 End: 03-07-2025 Follow-up [...] Start: 02-26-2025 End: 02-26-2025 ambulatory Andrius Vytautas Juanitis [facility] Start: 01-29-2025 End: 01-29-2025 ambulatory Andrius Phyllisytautas Juanitis Facility: [facility] Start: 01-15-2025 End: 01-15-2025 ambulatory Andrius Vytautas Juanitis [facility] Start: 12-06-2024 End: 12-06-2024 ambulatory DUSTY NASSAR Not Available Start: 10-02-2024 End: 10-02-2024 ambulatory Andrius Phyllisytautas Juanitis [facility] Start: 09-26-2024 End: 09-26-2024 Bamboo flowsheet Dusty [...] Start: 09-25-2024 End: 09-25-2024 ambulatory Andrius Vytautas Gieditis [facility] Start: 09-18-2024 End: 09-18-2024 ambulatory Andrius Phyllisytautas Juanitis Facility:[facility] Start: 09-11-2024 End: 09-11-2024 ambulatory Andrius Phyllisytautas Juanitis Facility:[facility] Start: 08-21-2024 End: 08-21-2024 ambulatory Andrius Phyllisytautas Manjuedraitis Facility:[facility] Start: 07-25-2024 End: 07-25-2024 Bamboo flowsheet Dusty [...] 06-30-2023 End: 06-30-2023 ambulatory Luis Thomas Other [employer] Other Start: 06-30-2023 Office outpatient vi sit 15 minutes Luis Thomas [facility] Start: 05-18-2023 End: 05-18-2023 ambulatory Luis Thomas Other [facility] Other Start: 05-18-2023 Telephone encounter Luis Thomas [facility] Start: 05-13-2023 End: 05-14-2023 ambulatory [facility] Start: 05-13-2023 End: 05-13-2023 ambulatory [facility] Start: 04-16-2023 End: 04-17-2023 ambulatory [facility] Start: 04-13-2023 End: 04-13-2023 ambulatory Luis Thomas Other [employer] Other Start: 04-13-2023 Office outpatient vi sit 15 minutes Luis Thomas [facility] Start: 04-05-2023 End: 04-05-2023 ambulatory Ej Thomas Other [employer] Other Start: 04-05-2023 Telephone encounter Ej Thomas [facility] Start: 03-18-2023 End: 03-18-2023 ambulatory Ej Thomas Other [employer] Other Start: 03-18-2023 Office outpatient ne w 30 minutes Ej Thomas [facility] Start: 02-09-2023 End: 02-10-2023 ambulatory NARENDRANATH LAKSHMIPATHY . Facility:[facility] Start: 02-01-2023 ambulatory NARENDRANATH LAKSHMIPATHY . Facility:[facility] Start: 01-28-[address] LUIS THOMAS Facil ity:[facility] Start: 01-28-2023 End: 01-29-2023 ambulatory NARENDRANATH LAKSHMIPATHY . Facility:[facility] Start: 01-21-2023 End: 01-21-2023 ambulatory Luis Thomas Other [employer] Other Start: 01-21-2023 Office outpatient vi sit 15 minutes Luis Thomas [facility] Start: 01-12-2023 End: 01-12-2023 ambulatory NARENDRANATH LAKSHMIPATHY . Facility:[facility] Start: 12-31-2022 End: 01-01-[address] LUIS THOMAS Facility:[facility] Start: 12-28-2022 End: 12-28-[address] LUIS THOMAS Facility:[facility] Start: 12-24-2022 End: 12-25-[address] LUIS THOMAS Facility:[facility] Start: 10-07-2022 End: 10-08-2022 ambulatory SHAWNA RUIZ . Facility:[facility] Start: 09-03-2022 Encounter for preprocedural laboratory examination DR YULI LEES . [facility] Start: 09-01-2022 End: 09-01-[address] YULI LEES . Facility:[facility] Start: 08-28-2022 End: 08-29-[address] LUIS THOMAS Facility:[facility] Start: 08-28-2022 End: 08-29-2022 Encounter for preprocedural laboratory examination DR LUIS THOMAS Facility:[facility] Start: 08-11-2022 End: 08-11-[address] YULI LEES . Facility:[facility] Start: 08-08-2022 Encounter for preprocedural cardiovascular examination SHAWNA RUIZ . [facility] Start: 08-07-2022 End: 08-08-2022 ambulatory [...] Start: 04-27-2017 End: 04-27-2017 Ambulatory EMRE STAPLETON [facility] Procedures Date Procedure Procedure Detail Performing [...] 05-30-2024 Intravitreal njx pharmacologic agt spx Dusty Lauren Nassar DO Work Phone: Start: 05-30-2024 Computerized ophthalmic imaging retina Dusty Nassar DO Work Phone: Start: 05-30-2024 End: 05-30-2024 Ophth medical xm&eval comprhnsv estab pt 1/> 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 eye with active choroidal neovascularization (HCC) ([facility]/HCC) Dusty Lauren Nassar DO Work Phone: Comment on above: [...] [address] [place] [address] Kriss Velez DO [address] [place] [address] [facility] Start: 05-30-2025 End: 05-30-2025 Clinical Support [facility] Comment on above: Arrived Start: 05-28-2025 Influenza vaccination Influenza Vacc ine (#1) [facility] Start: 05-24-2025 End: 05-24-2025 Patient encounter procedure [facility] Comment on above: Vaginal atrophy; Encounter for screening mammogram for breast cancer Start: 05-23-2025 End: 05-23-2025 Clinical Support 05/23/2025 8:30 AM EDT Clinical Support [facility] [address] [place] [phone] Dusty Nassar, DO [address] [place] [address] Arrived [facility] Comment on above: Arrived Start: 04-18-2025 End: 04-18-2025 Clinical Support 04/18/2025 8:30 AM EDT Clinical Support [facility] [address] [place] [phone] Dusty Nassar, DO [address] [place] [address] Arrived [facility] Comment on above: Arrived Start: 03-07-2025 End: 03-07-2025 Clinical Support [facility] Comment on above: Arrived Start: 02-28-2025 End: 02-28-2025 Clinical Support 02/28/2025 9:15 AM EDT Clinical Support [facility] [address] [place] [phone] Dusty Nassar, DO [address] [place] [address] Arrived [facility] Comment on above: Arrived Start: 09-26-2024 End: 09-26-2024 Clinical Support 09/26/2024 9:00 AM EST Clinical Support [facility] [address] [place] [address] Dusty Nassar, DO [address] [place] [address] Arrived [facility] Comment on above: Arrived Start: 07-25-2024 End: 07-25-2024 Clinical Support 07/25/2024 1:45 PM EDT Clinical Support [facility] [address] [place] [address] Dusty Nassar DO [address] [place] [address] Arrived [facility] Comment on above: Arrived Start: 05-30-2024 End: 05-30-2024 Clinical Support 05/30/2024 9:45 AM EDT Clinical Support [facility] [address] [place] [address] Dusty Nassar DO [address] [place] [address] Arrived [facility] Comment on above: Arrived Start: 05-28-2024 Influenza vaccination Influenza Vacc ine (#1) [facility] Start: 02-26-2023 ambulatory Ambulatory Facility:[facility] DBT Breast - bilater al screening Bilateral screening mammogram with tomosynthesis Imaging Routine Encounter for screening mammogram for breast cancer Ordered: 05/24/2025 [facility] Work Phone: Comment on above: Ordered: 05/24/2025 Intravitreal Injection, Pharmacologic Agent - OD - Right Eye Intravitreal Injection, Pharmacologic Agent - OD - Right Eye Ophthalmology Routine 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 eye with active choroidal neovascularization (HCC) ([facility]/HCC) Ordered: 07/25/2024 [facility] Work Phone: Comment on above: Ordered: 07/25/2024 Intravitreal Injection, Pharmacologic Agent - OD - Right Eye Intravitreal Injection, Pharmacologic Agent - OD - Right Eye Ophthalmology Routine 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 eye with active choroidal neovascularization (HCC) ([facility]/HCC) Ordered: 05/30/2024 [facility] Work Phone: Comment on above: Ordered: 05/30/2024 Immunizations Immunization Date Immunization Notes Care Provider Fa simon 08-11-2024 influenza virus vacc ine, unspecified formulation Dusty Nassar DO Work Phone: [facility] 07-26-2023 influenza virus vacc ine, unspecified formulation Dusty Nassar DO Work Phone: [facility] Payers Date Payer Category Payer Private Health Insurance [employer] [id number] 2025 Unknown [id number] 2018 [facility] [id number]. [id number] 2018 Unknown [id number]. 1.13.693.2. 7.3.002942.315 2017 Medicare [id number]. 1.13.693.2. [id number] 2014 Unknown [id number] 1959 [employer] Blue Shield [id number] 2.16.840.1.568360.19 1959 Medicare [id number] 2.16.840.1.997908.19 1959 Unknown [id number] 1947 Unknown [id number] 2.16.840.1.787982.3.579.2. 593 1947 Unknown [id number] 2.16.840.1.719642.3.579.2. 593 1947 Unknown [id number] 2.16.840.1.017798.3.579.2. 593 1947 Unknown [id number] 2.16.840.1.182749.3.579.2. 593 1947 Unknown [id number] 2.16.840.1.922599.3.579.2. 593 1947 Unknown [id number] 2.16.840.1.748407.3.579.2. 593 1947 Unknown [id number] 2.16.840.1.479756.3.579.2. 593 1947 Unknown [id number] 2.16.840.1.587218.3.579.2. 593 1947 Unknown [id number] 2.16.840.1.919916.3.579.2. 593 1947 Unknown [id number] 2.16.840.1.268570.3.579.2. 593 1947 Unknown [id number] 2.16.840.1.173023.3.579.2. 593 1947 Unknown [id number] 2.16.840.1.816222.3.579.2. 593 1947 Unknown [id number] 2.16.840.1.803183.3.579.2. 593 1947 Unknown [id number] 2.16.840.1.182171.3.579.2. 593 1947 Unknown [id number] 2.16.840.1.231472.3.579.2. 593 1947 Unknown [id number] 2.16.840.1.100414.3.579.2. 593 1947 Unknown [id number] 2.16.840.1.803310.3.579.2. 593 1947 Unknown [id number] 2.16.840.1.518538.3.579.2. 593 1947 Unknown [id number] 2.16.840.1.075477.3.579.2. 593 1947 Unknown [id number] 2.16.840.1.734323.3.579.2. 593 1947 Unknown [id number] 2.16.840.1.398699.3.579.2. 593 1947 Unknown [id number] 2.16.840.1.452565.3.579.2. 593 1947 Unknown [id number] 2.16.840.1.773877.3.579.2. 593 1947 Unknown [id number] 2.16.840.1.064173.3.579.2. 593 1947 Unknown [id number] 2.16.840.1.761619.3.579.2. 593 1947 Unknown [id number] 2.16.840.1.489226.3.579.2. 1259 1947 Unknown [id number] 2.16.840.1.838768.3.579.2. 1259 1947 Unknown [id number] 2.16.840.1.589995.3.579.2. 1259 1947 Unknown [id number] 2.16.840.1.749550.3.579.2. 1259 1947 Unknown [id number] 2.16.840.1.931834.3.579.2. 1259 1947 Unknown [id number] 2.16.840.1.602062.3.579.2. 1259 1947 Unknown [id number] 2.16.840.1.874152.3.579.2. 1259 1947 Unknown [id number] 2.16.840.1.426436.3.579.2. 1259 1947 Unknown [id number] 2.16.840.1.822186.3.579.2. 1259 1947 Unknown [id number] 2.16.840.1.596467.3.579.2. 196 1947 Unknown [id number] 2.16.840.1.080526.3.579.2. 196 1947 Unknown [id number] 2.16.840.1.994975.3.579.2. 196 1947 Unknown [id number] 2.16.840.1.686413.3.579.2. 196 1947 Unknown [id number] 2.16.840.1.697983.3.579.2. 196 1947 Unknown [id number] 2.16.840.1.458126.3.579.2. 196 1947 Unknown [id number] 2.16.840.1.032104.3.579.2. 196 1947 Unknown [id number] 2.16.840.1.861536.3.579.2. 196 1947 Unknown [id number] 2.16.840.1.433877.3.579.2. 196 Social History Date Type Detail Facility Unknown if ever smoked [employer] Other Start: 05-30-2024 End: 05-30-2025 Sex Assigned At [facility] Other Start: 10-11-2023 Tobacco smoking status NHIS Never smoked tobacco [facility] Start: 10-11-2023 Tobacco use and exposure Smokeless tobacco non-user [facility] Start: 05-30-2024 End: 05-30-2025 History of Social function [facility] Start: 1945 Sex assigned at Not on file N [facility] Clinical Notes 03-05-2022 to 05-30-2025 Dusty Nassar, DO - 05/30/2025 8:45 AM EDTKriss Velez, DO - 05/24/2025 10:00 AM EDNirmala Nassar, DO - 05/23/2025 8:30 AM EDNirmala Nassar, DO - 04/18/2025 8:30 AM EDT [...] 2 MG/0.05ML Route: Intravitreal, Site: Right Eye [facility]: 82347-051-60, Lot: [id number], Expiration date: 06/27/2026, Waste: 0 mL Post-op [...] increased pain, redness, decreased vision or concerns. [facility] 05-30-2025 History of Presen t illness [...] 2 MG/0.05ML Route: Intravitreal, Site: Right Eye [facility]: 79690-183-54, Lot: [id number], Expiration date: 06/27/2026, Waste: 0 mL Post-op [...] vision or concerns. documented in this encounter [facility] 05-24-2025 History of Presen t illness [...] Comments Pap smear 05/10/24 wnl Mammogram 08/11/24 wnl @ [facility] Review of Systems - General: Chills denies. [...] Review Audit Reviewed by Elizabeth Santiago MA (Technical Testing Engineer) on 05/24/25 at 1015 Medication Order Taking? Sig Documenting Provider Last Dose Status aspirin 81 MG EC tablet [id number] 1 (one) time each day at the same time Dusty Nassar DO Active baclofen (Lioresal) 10 MG tablet [id number] every 12 (twelve) hours Dusty Nassar DO Active calcium carbonate (Super Calcium) 1500 (600 Ca) MG tablet [id number] 1 tablet with meals Orally Once Dusty Nassar DO Active cefdinir (Omnicef) 300 MG capsule [id number] Take 300 mg by mouth in the morning and 300 mg before bedtime. Dusty Nassar DO Active cholecalciferol (Vitamin D3) 25 MCG (1000 UT) tablet [id number] 1 (one) time each day at the same time Dusty Nassar DO Active denosumab (Prolia) 60 MG/ML solution prefilled syringe [id number] as directed Subcutaneous Dusty Nassar DO Active Vgzcjbafqqj-Druupzyflkd-KAM (Rmwnqr-Paffg-UGR-Double Str) 500-400-167 MG tablet [id number] every 12 (twelve) hours Dusty Nassar DO Active losartan (Cozaar) 25 MG tablet [id number] Oral for 90 Days Dusty Nassar DO Active Magnesium Glycinate 100 MG capsule [id number] 2 capsules 1 (one) time each day at the same time Dusty Nassar DO Active Menaquinone-7 (Vitamin K2) 100 MCG capsule [id number] as directed Orally Dusty Nassar DO Active Multiple Vitamins-Minerals (PreserVision AREDS 2) capsule [id number] 1 (one) time each day at the same time Dusty Nassar DO Active Multiple Vitamins-Minerals (Womens 50+ Multi Vitamin) tablet [id number] as directed Orally Dusty Nassar DO Active niacin 500 MG tablet [id number] 1 (one) time each day at the same time Dusty Nassar DO Active [place]-3 Fatty Acids (Fish Oil) 1200 MG capsule delayed-release [id number] 1 capsule every 12 (twelve) hours Dusty Nassar DO Active traMADol (Ultram) 50 MG tablet [id number] TAKE 1 TABLET BY MOUTH TWICE A DAY NEEDED FOR PAIN MUST LAST 30 DAYS Dusty Nassar DO Active zonisamide (Zonegran) 50 MG capsule [id number] TAKE 3 CAPSULES BY MOUTH EVERY DAY [...] Cystocele, midline N81.11 documented in this encounter [facility] 05-23-2025 Note Time Out 05/23/2025. 9:11 AM. Confirmed correct patient, procedure, site, and patient consented. Anesthesia Topical anesthesia was used. Anesthetic medications included Lidocaine 2%, Proparacaine 0.5%. Procedure Preparation included 5% betadine to ocular surface, eyelid speculum. Injection: 2 mg aflibercept 2 MG/0.05ML Route: Intravitreal, Site: Left Eye [facility]: 07333-002-42, Lot: [id number], Expiration date: 06/27/2026, Waste: 0 mL Post-op [...] increased pain, redness, decreased vision or concerns. [facility] 05-23-2025 Note Right Eye Quality was good. Scan locations included subfoveal. Progression has improved. Findings include abnormal foveal contour, epiretinal membrane, pigment epithelial detachment. Left Eye Quality was good. Scan locations included subfoveal. Progression has been stable. Findings include normal observations. Notes Good scan with normal appearance left eye (OS) [facility] 05-23-2025 History of Presen t illness [...] Eye [facility]: 78633-825-67, Lot: [id number], Expiration date: 06/27/2026, Waste: 0 mL Post-op [...] vision or concerns. documented in this encounter [facility] 04-18-2025 Note Time Out 04/18/2025. 8:54 AM. Confirmed correct patient, procedure, site, and patient consented. Anesthesia Topical anesthesia was used. Anesthetic medications included Lidocaine 2%, Proparacaine 0.5%. Procedure Preparation included 5% betadine to ocular surface, eyelid speculum. A 30 gauge needle was used. Injection: 2 mg aflibercept 2 MG/0.05ML Route: Intravitreal, Site: Right Eye [facility]: 87327-936-63, Lot: [id number], Expiration date: 06/27/2025, Waste: 0 mL Post-op [...] increased pain, redness, decreased vision or concerns. [facility] 04-18-2025 Note Right Eye Quality was good. Scan locations included subfoveal. Progression has been stable. Findings include abnormal foveal contour, epiretinal membrane, pigment epithelial detachment. Left Eye Quality was good. Scan locations included subfoveal. Progression has been stable. Findings include abnormal foveal contour. [facility] 04-18-2025 History of Presen t illness [...] 2 MG/0.05ML Route: Intravitreal, Site: Right Eye [facility]: 90378-558-98, Lot: [id number], Expiration date: 06/27/2025, Waste: 0 mL Post-op [...] vision or concerns. documented in this encounter [facility] 03-07-2025 Note Time Out 03/07/2025. 1:19 PM. Confirmed correct patient, procedure, site, and patient consented. Anesthesia Topical anesthesia was used. Anesthetic medications included Lidocaine 2%, Proparacaine 0.5%. Procedure Preparation included 5% betadine to ocular surface, eyelid speculum. A 30 gauge needle was used. Injection: 2 mg aflibercept 2 MG/0.05ML Route: Intravitreal, Site: Right Eye [facility]: 16788-950-70, Lot: [id number], Expiration date: 03/27/2026, Waste: 0 mL Post-op [...] increased pain, redness, decreased vision or concerns. [facility] 03-07-2025 History of Presen t illness Narrative Images from the original note were not included. Assessment/Plan Diagnoses and all orders for this visit: Exudative age-related macular 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 (CMS/HCC) - Intravitreal Injection, Pharmacologic Agent - OD [...] 2 MG/0.05ML Route: Intravitreal, Site: Right Eye [facility]: 96256-776-22, Lot: [id number], Expiration date: 03/27/2026, Waste: 0 mL Post-op [...] vision or concerns. documented in this encounter [facility] 03-05-2025 Note Right Eye Quality was good. Scan locations included subfoveal. Progression has worsened. Findings include intraretinal fluid, pigment epithelial detachment. Left Eye Quality was good. Scan locations included subfoveal. Progression has been stable. Findings include abnormal foveal contour. [facility] 02-28-2025 Note Time Out 02/28/2025. 10:00 AM. Confirmed correct patient, procedure, site, and patient consented. Anesthesia Topical anesthesia was used. Anesthetic medications included Lidocaine 2%, Proparacaine 0.5%. Procedure Preparation included 5% betadine to ocular surface, eyelid speculum. Injection: 2 mg aflibercept 2 MG/0.05ML Route: Intravitreal, Site: Left Eye [facility]: 28932-485-35, Lot: [id number], Expiration date: 03/27/2026, Waste: 0 mL Post-op [...] increased pain, redness, decreased vision or concerns. [facility] 02-28-2025 History of Presen t illness [...] Eye [facility]: 85685-002-24, Lot: [id number], Expiration date: 03/27/2026, Waste: 0 mL Post-op [...] Very mild amount. documented in this encounter [facility] 09-26-2024 Note Time Out 09/26/2024. 9:37 AM. Confirmed correct patient, procedure, site, and patient consented. Anesthesia Topical anesthesia was used. Anesthetic medications included Lidocaine 2%, Proparacaine 0.5%. Procedure Preparation included 5% betadine to ocular surface, eyelid speculum. Injection: 2 mg aflibercept 2 MG/0.05ML Route: Intravitreal, Site: Left Eye [facility]: 40857-042-34, Lot: [id number], Expiration date: 12/26/2025, Waste: 0 mL Post-op [...] increased pain, redness, decreased vision or concerns. [facility] 09-26-2024 Note Right Eye Quality was good. Scan locations included subfoveal. Progression has been stable. Findings include abnormal foveal contour, epiretinal membrane, intraretinal fluid, pigment epithelial detachment. Left Eye Quality was good. Scan locations included subfoveal. Progression has been stable. Findings include normal observations. Notes Good scan with normal appearance left eye (OS) [facility] 09-26-2024 History of Presen t illness [...] [facility] [place]: 03143-772-92, Lot: [id number], Expiration date: 12/26/2025, Waste: 0 mL Post-op [...] vision or concerns. documented in this encounter [facility] 07-25-2024 Note Time Out 07/25/2024. 2:58 PM. Confirmed correct patient, procedure, site, and patient consented. Anesthesia Topical anesthesia was used. Anesthetic medications included Lidocaine 2%, Proparacaine 0.5%. Procedure Preparation included 5% betadine to ocular surface, eyelid speculum. Injection: 2 mg aflibercept 2 MG/0.05ML Route: Intravitreal, Site: Left Eye [facility]: 43944-243-34, Lot: [id number], Expiration date: 08/27/2025, Waste: 0 mL Post-op [...] increased pain, redness, decreased vision or concerns. [facility] 07-25-2024 Note Right Eye Quality was good. Scan locations included subfoveal. Progression has been stable. Findings include abnormal foveal contour, pigment epithelial detachment. Left Eye Quality was good. Scan locations included subfoveal. Progression has been stable. Findings include abnormal foveal contour. [facility] 07-25-2024 History of Presen t illness Narrative Images from the original note were not included. Assessment/Plan Diagnoses and all orders for this visit: 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 eye with active choroidal neovascularization ([facility]) - OCT, Retina - OU - Both [...] MG/0.05ML Route: Intravitreal, Site: Left Eye [place]: [id number], Lot: [id number], Expiration date: 08/27/2025, Waste: 0 mL Post-op [...] vision or concerns. documented in this encounter [facility] 05-30-2024 Note Time Out 05/30/2024. 10:38 AM. Confirmed correct patient, procedure, site, and patient consented. Anesthesia Topical anesthesia was used. Anesthetic medications included Lidocaine 2%, Proparacaine 0.5%. Procedure Preparation included 5% betadine to ocular surface, eyelid speculum. Injection: 1.25 mg bevacizumab 100 MG/4ML Route: Intravitreal, Site: Left Eye [facility]: 26199-255-82, Lot: [id number], Expiration date: 08/14/2024, Waste: 0 mL Post-op [...] increased pain, redness, decreased vision or concerns. [facility] 05-30-2024 Note Right Eye Quality was good. Scan locations included subfoveal. Progression has improved. Findings include abnormal foveal contour, intraretinal fluid, pigment epithelial detachment. Left Eye Quality was good. Scan locations included subfoveal. Progression has been stable. Findings include abnormal foveal contour. [facility] 05-30-2024 History of Presen t illness [...] 100 MG/4ML Route: Intravitreal, Site: Left Eye [facility]: [id number], Lot: [id number], Expiration date: 08/14/2024, Waste: 0 mL Post-op [...] MG/ML solution prefilled syringe as directed Subcutaneous Yduflaydvlh-Sqnljfbnurp-ZXO (Hdpbgu-Vbjux-GUX-Double Str) 500-400-167 MG tablet every 12 (twelve) [...] time each day at the same time [place]-3 Fatty Acids (Fish Oil) 1200 MG capsule [...] Normal Normal Refraction Wearing Rx Sphere Cylinder [place] Add Right +2.50 -2.00 077 +3.25 Left [...] laser capsulotomy, 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 documented in this encounter [facility] 06-30-2023 Evaluation note Encounter Date Diagnosis Assessment Notes Jun, Acute non-recurrent maxillary sinusitis (ICD-10 - J01.00) Finish antibiotic, stay hydrated. Ok for NSAIDs for head pressure. Call if no improvement. [facility] Other 08-17-2023 NoteSUBJECTIVE: Chief complaint: Back and right leg pain. History of present illness: Consultation referred by pain management, Dr. Layton of [facility]. Patient reports chronic low back [...] found for any pre (more content not included)...[facility]08-17-2023 NoteSubjective: HPI: Letty Coffey is a [...] and assess x-rays of back. [facility]* Encounter Date Diagnosis Assessment Notes [...] is busy with other appts right now. [facility] Other 06-22-2023 Evaluation note* Encounter Date Diagnosis [...] long as possible before considering surgical intervention. [facility] Other 05-04-2023 NoteCONSULTATION CONSULTATION DATE: 01/28/2023 TO: [...] our patients to inform us about any lbhr-tru-iceidur medications or herbal remedies/nutritional supplements/alternative remedies. 2. [...] with their primary care provider.[facility] [id number] Evaluation note * Encounter Date Diagnosis Assessment Notes Treatment Notes Treatment Clinical Notes Dec, Essential (primary) hypertension (ICD-10 - I10) new problem. rx handwritten. f/u 6 weeks. Dec, Other chronic pain (ICD-10 - G89.29) Dec, Pain in left shoulder (ICD-10 - M25.512) PT order given to pt. [facility] Other 04-06-2023 NoteCONSULTATION CONSULTATION DATE: 12/31/2022 TO: [...] our patients to inform us about any pytb-uya-nlhchuw medications or herbal remedies/nutritional supplements/alternative remedies. 2. [...] with their primary care provider.[facility] [id number] Note CONSULTATION PROCEDURE DATE: 10/07/2022 PREOPERATIVE DIAGNOSIS: [...] Patient tolerated the procedure well.[facility] [id number] NoteCONSULTATION CONSULTATION DATE: 10/07/2022 HISTORY OF PRESENT [...] sitting does decrease her pain. Medications include dmqm-bgp-axivwlh Tylenol and the use of Salonpas patches. [...] Patient agrees with this plan.[facility] [id number] NoteCONSULTATION CONSULTATION DATE: 07/30/2022 This is a [...] with radiating pain to the right hip. Lidna's and compression mildly tender. Reproduction of spinoaxial [...] up at the office thereafter.[facility] [id number] NoteCONSULTATION CONSULTATION DATE: 06/25/2022 HISTORY OF PRESENT [...] in agreement with this plan.[facility] [id number] NoteCONSULTATION CONSULTATION DATE: 05/19/2022 CHIEF COMPLAINT: Right [...] proceed. CC: Luis Thomas M.D.[facility] [id number] NoteCONSULTATION PROCEDURE DATE: 04/28/2022 PREOPERATIVE DIAGNOSIS: Right [...] followed up in the office.[facility] [id number] NoteCONSULTATION CONSULTATION DATE: 04/28/2022 CHIEF COMPLAINT: Right [...] proceed. CC: Luis Thomas M.D.[facility] [id number] NotePROCEDURE: XR HIP RT 2 3V W PELVIS COMPARISON: None. HISTORY: Arthropathy FINDINGS: BONES:No acute fracture or dislocation. Mild osteoarthropathy with marginal osteophyte formation. 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 No visible soft tissue swelling. EFFUSION:None visible. OTHER: Negative. 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 Electronically authenticated by: YOUSUF ORTIZ Date: 2022-03-05 10:09[facility] [employer] Other evaluation note* Diagnosis 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 eye with active choroidal neovascularization (CMS/HCC)- Primary documented in this encounter [facility] HealthcareEvaluation note* Diagnosis 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 eye with active choroidal neovascularization (HCC) (CMS/HCC)- Primary Right posterior capsular opacification Unspecified after-cataract documented in this encounter [facility] HealthcareEvaluation note* Diagnosis 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 eye with active choroidal neovascularization (CMS/HCC)- Primary documented in this encounter [facility] HealthcareEvaluation note* Diagnosis 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 eye with active choroidal neovascularization (CMS/HCC)- Primary Exudative age-related macular 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 (CMS/HCC) documented [facility] encounter [facility]* Diagnosis Exudative age-related macular 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 (CMS/HCC)- Primary [facility]* Diagnosis Exudative age-related macular 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 (HCC)- Primary [facility]* Diagnosis 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 eye with active choroidal neovascularization (HCC)- Primary Vaginal atrophy Postmenopausal atrophic vaginitis Encounter for screening mammogram for breast cancer documented in this encounter [facility]* Diagnosis Vaginal atrophy- Primary Postmenopausal atrophic vaginitis Encounter for screening mammogram for breast cancer Cystocele, midline documented in this encounter [facility] HealthcareHistory general Narrative - Reported* Type [...] History COLONOSCOPY Hospitalization History SEE SURGICAL HX [facility] Other History general Narrative - Reported* Type [...] growth surgery Hospitalization History SEE SURGICAL HX [facility] Other Summary Purpose Family History No Family [...] and content) DATE CREATED AUTHOR 03/23/2018 [facility] DATE CREATED AUTHOR AUTHOR'S ORGANIZ ATION 02/10/2023 [facility] DATE CREATED AUTHOR AUTHOR'S ORGANIZ ATION 05/19/2023 [facility] DATE CREATED AUTHOR AUTHOR'S ORGANIZ ATION 05/31/2025 [facility] DATE CREATED AUTHOR AUTHOR'S ORGANIZ ATION 06/13/2025 [facility] REASON FOR VISIT (unrecogniz ed section [...] Care Teams (unrecognized sec tion and content) Community Assistant Relationship Specialty Start Date End Date Wiley Price MD [address] [place] [address] [phone] PCP - General Family Medicine 12/10/23 Kimber Price MD [address] [place], [place] [phone] Referring Physician Family Medicine 10/15/23 Community Assistant Relationship Specialty Start Date End Date Wiley Price MD [address] [place] [address] [phone] PCP - General Family Medicine 12/10/23 [place] [address] [place] [phone] Referring Physician Family Medicine 10/15/23 Community Assistant Relationship Specialty Start Date End Date Wiley Price MD [address] [place] [address] [phone] PCP - General Family Medicine 12/10/23 [place] [address] [place], [place] [phone] Referring Physician Family Medicine 10/15/23 Community Assistant Relationship Specialty Start Date End Date Wiley Price MD [address] [place] [address] PCP - General Family Medicine 12/10/23 Kimber Price MD [address] [place] [phone] Referring Physician Family Medicine 10/15/23 Community Assistant Relationship Specialty Start Date End Date Wiley Price MD [address] [place] [phone] (Fax) PCP - General Family Medicine 12/10/23 Kimber Price MD [address] [place] [phone] Referring Physician Family Medicine 10/15/23 Community Assistant Relationship Specialty Start Date End Date Wiley Price MD [address] [place] [phone] (Fax) PCP - General Family Medicine 12/10/23 Kimber Price MD [address] [place] [phone] Referring Physician Family Medicine 10/15/23 Community Assistant Relationship Specialty Start Date End Date Wiley Price MD [address] [place] [phone] PCP - General Family Medicine 12/10/23 Kimber Price MD [address] [place] [address] [phone] Referring Physician Family Medicine 10/15/23 Community Assistant Relationship Specialty Start Date End Date Wiley Price MD [address] [place] [address] PCP - General Family Medicine 12/10/23 Kimber Price MD [address] [place] [address] Referring Physician Family Medicine 10/15/23 Community Assistant Relationship Specialty Start Date End Date Wiley Price MD [address] [place] [phone] PCP - General Family Medicine 12/10/23 [place] [address] [place] [phone] Referring Physician Family [facility] 10/15/23 Community Assistant Relationship Specialty Start Date End Date Wiley Price MD [address] [place] [phone] PCP - General Family Medicine 12/10/23 [place] [address] [place] [phone] Referring Physician Family [facility] 10/15/23 FOR RECORDS PERTAINING TO PATIENTS WHO [...] ON THE PRIMARY CLINICAL RECORDS. [facility] [employer] provides no warranty or guarantee of the accuracy or completeness of information in this document.
--- NOTE | 2025-06-21 09:12 | PM.CN ---
Consult Note: HPI Data of Consult Patient: known to practice within the last 3 years Requesting Physician: Bessy Johnson NP Primary Care Provider: KIEL ALMODOVAR Consult Narrative Reason for consult: low back pain Narrative: 79 year old female presents for evaluation of chronic right low back and SIJ pain. Pain today 4/10 aching, increasing to 5/10 with standing, walking, twisting, pushing, pulling. currently utilizing tylenol, baclofen, tramadol, zonegran, and ASA with benefit without side effects. has failed to benefit from > 6 weeks of PT and provider guided HEP, heat, ice, tylenol, NSAIDs, and oral steroids. recently underwent right SIJ injection with 50% improvement ongoing. noting burning to RLE intermittently. cc:: CC: Bessy Johnson NP Review of Systems ROS Musculoskeletal Reports: back pain and extremity pain PFSH PFSH Medical History Osteoarthritis ?M19.90 - Unspecified osteoarthritis, unspecified site (ICD-10) Low back pain ?M54.50 - Low back pain, unspecified (ICD-10) Hiatal hernia ?K44.9 - Diaphragmatic hernia without obstruction or gangrene (ICD-10) Obesity ?E66.9 - Obesity, unspecified (ICD-10) Heart murmur ?R01.1 - Cardiac murmur, unspecified (ICD-10) Surgical History History of ear surgery ?Z98.890 - Other specified postprocedural states (ICD-10) History of phacoemulsification of cataract with intraocular lens implantation ?Z98.49 - Cataract extraction status, unspecified eye (ICD-10) ?Z96.1 - Presence of intraocular lens (ICD-10) Hx of appendectomy ?Z90.49 - Acquired absence of other specified parts of digestive tract (ICD-10) H/O: hysterectomy ?Z90.710 - Acquired absence of both cervix and uterus (ICD-10) History of tonsillectomy ?Z90.89 - Acquired absence of other organs (ICD-10) Meds Home Medications and Allergies Home Medications ?Medication ?Instructions ?Recorded ?Confirmed ?Type aspirin 81 mg tablet,delayed 81 mg PO DAILY 02/26/23 06/11/25 History release (Adult Low Dose Aspirin) denosumab 60 mg/mL subcutaneous 60 mg subcut .Q6 MONTHS 02/26/23 06/11/25 History syringe (Prolia) niacin 500 mg tablet 500 mg PO DAILY 02/26/23 06/11/25 History losartan 25 mg tablet 25 mg PO DAILY 03/01/23 06/11/25 History antiarthritic combination no.2 900 2 mg PO DAILY 07/15/23 06/11/25 History mg tablet (glucosamine-chondroitin) calcium 600 mg (as 2 cap PO DAILY 07/15/23 06/11/25 History carbonate)-vitamin D3 5 mcg (200 unit) capsule (Calcium 600 + D(3)) magnesium glycinate 100 mg (as 100 mg PO BID 07/15/23 06/11/25 History glycinate) tablet (Mag Glycinate) multivitamin (Daily Multi-Vitamin 1 tab PO DAILY 07/15/23 06/11/25 History tablet) omega 2-pgt-dzr-fish oil 1,200 mg 2 cap PO DAILY 07/15/23 06/11/25 History (144 mg-216 mg) capsule (Fish Oil) vit C 250 mg-vit E 90 mg-zinc 40 1 tab PO BID 07/15/23 06/11/25 History mg-copper 1 dk-acfzar-swtavw capsule (PreserVision AREDS-2) vitamin K2 100 mcg capsule 100 mcg PO DAILY 07/15/23 06/11/25 History cholecalciferol (vitamin D3) 50 2,000 unit PO BID 01/11/24 06/11/25 History mcg (2,000 unit) capsule (Vitamin D3) baclofen 10 mg tablet 10 mg PO BID PRN muscle spasm #180 09/13/24 06/11/25 Rx tabs tramadol 50 mg tablet See Rx Instructions .Route 12/19/24 06/11/25 Rx .COMPLEX PRN pain #75 tabs zonisamide 50 mg capsule 150 mg (3 x 50 mg) PO DAILY #90 01/04/25 06/11/25 Rx caps zonisamide 50 mg capsule See Rx Instructions .Route 04/04/25 06/11/25 Rx .COMPLEX #90 caps Allergies Allergy/AdvReac Type Severity Reaction Status Date / Time No Known Drug Allergies Allergy Verified 06/11/25 08:18 Exam Constitutional Documenting provider has reviewed patient's vital signs: yes Common normals: no apparent distress, oriented x3, healthy appearing, alert and well nourished General appearance: cooperative HENMT Common normals: normocephalic, hearing grossly normal bilaterally and moist oral mucous membranes Head and scalp: normocephalic Eye Common normals: PERRL Pupil: PERRL Neck & C-Spine Common normals: full ROM General: normal visual inspection Chest Common normals: inspection of chest normal Respiratory Common normals: normal respiratory effort, no retractions and no use of accessory muscles Back & Pelvis Lumbar spine/lower back: lumbar ROM normal and straight leg raise positive right; no pain with ROM and no lumbar spinal tenderness Other: decreased sensation right L4,5,S1 strength 4/5 in RLE and 5/5 in LLE Neuro Common normals: oriented x3 Sensorium/orientation: alert Psych Common normals: mental status grossly normal, thought process normal, cooperative, affect normal, speech normal and activity/motor behavior normal Speech: normal speech Thought process: normal thought process Results Additional Findings Additional findings: If on a controlled substance or opioids, I have checked an [place] report on this patient and there are no aberrancies noted in the prescribing history.??If on a controlled substance or opioid a drug screen was completed and reviewed within the last year, and if there has not been a drug screen completed we ordered one today to monitor higher risk, state monitored pain medication use. As part of providing excellent, safe, comprehensive care, the following was completed at our patient's visit: 1. A medication reconciliation and review to ensure accurate knowledge of current/active medications, including asking our patients to inform us about any tuer-wec-vejqfie medications or herbal remedies/nutritional supplements/alternative remedies. 2. A review to specifically ensure our patients have had annual screening for screening for depression, screening for tobacco use, and screening for unhealthy alcohol use. For concerning screenings had a discussion with the patient, provided patient education, and recommended follow-up with primary care provider when appropriate. If patient noted with a risk of falling, they received education on strength, gait, and balance training to prevent future risk of falling. Portions of this note may have been carried over from the previous visit and updated as appropriate. Please note this office utilizes paper charting in addition to the electronic medical record. A list of current medications, vitals, and PMH is available there as the clinical staff outside of myself do not have access to [employer] charting during the clinic day operations. As part of providing quality comprehensive care the current medications, vitals, and PMH were reviewed in the paper chart. Assessment and Plan Assessment and Plan (1) Lumbar stenosis with neurogenic claudication: Assessment and Plan: The patient has had over 3 months of moderate to severe low back and REL pain with functional impairment and inadequate response to conservative care including NSAIDS (unless there are contraindication such as concurrent blood thinners), multiple oral or topical pain medications, and home exercise program/physical therapy.? Patient has completed >6 weeks of guided home exercise program and/or formal physical therapy program without relief of their symptoms.? The Oswestry Disability Index was completed, and the patient scored a 32%.? 5-25 right L4-5 L5-S1 TFESI >50% improvement greater than 3 months (2) Sacroiliitis: (3) Chronic prescription opiate use: Plan repeat right L4-5 L5-s1 TFESI under fluoroscopy when needed, pt will call continue current medications continue HEP as tolerated f/u 3 months, or 2 weeks after injection
== END 2025-06-21 08:51 | disposition home or self-care (01) ==
LOC: PM 08:51
PROVIDERS: PCP Nurse Practitioner Family; Visit Provider Nurse Practitioner
DX: M48.062 Spinal stenosis, lumbar region with neurogenic claudication (principal); M46.1 Sacroiliitis, not elsewhere classified; Z79.891 Long term (current) use of opiate analgesic
CPT/HCPCS: G0463

== ENCOUNTER 2025-06-27 10:56 | Outpatient (OUT) | payer MEDICARE, OTHER, SELFPAY ==
--- OUTSIDE RECORDS SUMMARY | 2024-03-03 04:40 | XMS_ITS ---
Author Organization [facility] Address [address] [place] [address] Care Team Providers Care Developer Analyst Name Role Phone Hakan Rossarpan Unavailable [phone] АлександрLiamSosa Unavailable Allergies No Known Allergies Reason For Referral Reason REFERRAL FOR SPINAL CORD STIMULATOR Diagnosis 1 Lumbar back pain (M5 4.50) Referral Organization [facility] Referring Provider First Name Larry Referring Provider Last Name [facility] Referring Provider Speciality Orthopedic Surgery Referred Organization OTHER Referred Provider MARIBELL LEPE General Notes Courtney Peguero 2023 09:50:56 AM >, Courtney Peguero 03/15/2024 08:55:06 AM >REFERRAL FAXEDMarielena Dawn 03/22/2024 12:54:57 PM >[facility] [place] [facility] 04/18/2024 09:29:01 AM >FAXED Referral Priority Routine REASON FOR VISIT Low Back Pain Medications Medication SIG (Take, Route, Frequency, Duration) Notes Start Date End Date Status Baclofen Active Womens multivitamin with vitamin D3 Active Prolia Active traMADol Active zonisamide Active Vitamin D3 Active PreserVision AREDS 2 Active Calcium Active Glucosamine Chondroitin Active niacin Active Aspirin Low Dose Act [place] Vitamin K2 Active losartan Active Social History Tobacco Use: Social History Observation Description Date Details (start date - stop date) Never Smoker NA - NA AUDIT-C (Standard) Question Answer Notes Did you have a drink containing alcohol in the p ast year? No Points 0 Interpretation Negative Tobacco Control (Standard) Question Answer Notes Tobacco use: Nonsmoker Problems Problem Type SNOMED Code ICD Code Onset Dates Problem Status W/U Status Risk Notes Problem 29911639 Spinal stenosis, lumbar region without neurogenic claudication (M48.061) Active confirmed Problem 285548583 Other forms of scoliosis, lumbar region (M41.86) Active confirmed Encounters Encounter Location Date Provider Diagnosis [facility] [address] [address] [place] [address] [place]03[place] Spinal stenosis, lumbar region without neurogenic claudication M48.061 and Other forms of scoliosis, lumbar region M41.86 Assessments Encounter Date Diagnosis (ICD Code) Assessment Notes Treatment Notes Treatment Clinical Notes Section Notes 03/03/2024 Spinal stenosis, lumbar region without neurogenic claudication (ICD-10 - M48.061) 1. Kyphoscolio sis 2. L2-5 lumbar central canal stenosis/NF S 03/03/2024 Other forms of scoliosis, lumbar region (ICD-10 - M41.86) 1. Kyphoscolio sis 2. L2-5 lumbar central canal stenosis/NF S 03/03/2024 Other Patient evaluated and plan established by Dr. Harden. MRI results of her lumbar spine were discussed with the patient. The risks of this complex surgery would outweigh the benefits given the patient's age. She is already in pain management and the recommendation would be to trial a spinal cord stimulator. The patient is very much in agreement with the treatment and/or diagnostic plan set forth and all questions were answered to the patient's satisfaction. Thanks once again. If we can be of further service to your patients with disorders of the spine, cervical, thoracic, or lumbar, please do not hesitate to contact Dr. Harden. Best regards, 1. Kyphoscolio sis 2. L2-5 lumbar central canal stenosis/NF S Plan Of Treatment Treatment Notes Assessment Notes Other Patient evaluated and plan established by Dr. Harden. MRI results of her lumbar spine were discussed with the patient. The risks of this complex surgery would outweigh the benefits given the patient's age. She is already in pain management and the recommendation would be to trial a spinal cord stimulator. The patient is very much in agreement with the treatment and/or diagnostic plan set forth and all questions were answered to the patient's satisfaction. Thanks once again. If we can be of further service to your patients with disorders of the spine, cervical, thoracic, or lumbar, please do not hesitate to contact Dr. Harden. Best regards, Pending Test Test Name Order Date Lumbar spine, 4v flex ext - 92290 2023 Referrals Referral Date Details 03/03/2024 03/03/2024, REFERRAL FOR SPINAL CORD STIMULATOR, MORRIS LEPE Next Appt Details Follow Up: prn, Reason: Progress Notes * GAYATHRI LOPEZ MDOB:[birth year] (79 yo F)Acc No.[id number]:03/03/2024 Patient: GAYATHRI BAI Provider: COLETTE Gotti :1945 A ge:78 Y S ex:Female Date:03/03/2024 Address:[address] [place], [place] [id number] Subjective: * Chief Complaints: * 1 . Low Back Pain. * HPI: G eneral Follow Up Information: Dictated by Sosa Delgado PA-C Thank you for referring your patient to see Dr. Harden in surgical spine consultation at the [facility] [place] [place]. The patient is a 78-year-old female that presents with complaints of low back pain that radiates into her right leg. She is variances pain, numbness, and tingling from the back down the right leg to the ankle. She will sometimes have symptoms in her left leg. She has seen a previous surgeon who told her that the risks would outweigh the benefits of a big surgery to fix her scoliosis. She is here today for a second opinion. She has been seeing [place] pain management and had her last EDWIN in November that did not help at all. She takes Tylenol and tramadol for pain control with some relief. She has tried physical therapy for before which did not help. Walking and standing makes the pain and symptoms worse. She has a VAS score of 6 out of 10. Sitting helps relieve her pain. She is a non-smoker. G eneral Info per Patient Report: Side affected is R ight . J oint or body part affected is L ower back, Leg . W ork related: N o. M otor vehicle accident: N o. T hird democrat responsibility: N o. W hat activities make your symptoms worse? S tanding, Walking, lying on your back. T ype of pain: P ain in lower back (mostly on right side) runs down my leg . W hich of the following treatments have you tried? A nti-Inflammatory medications, Muscle, relaxants, Narcotic pain medications, Hot packs, Physical Therapy treatment, injections. H ave you been seen by a Dentist in the last year? Y es. D o you have any dental problems? N o. W hat activities help the pain? s itting, lying on your left side?. * ROS: E yes: Glasses/ Contacts Y es. C hange in Vision Y es.? G astrointestinal: Hemorrhoids Y es. M usculoskeletal: Back Pain Y es. * Medical History: H igh Blood Pressure, Osteoporosis, Rheumatoid arthritis. * Surgical History: H ysterectomy 07/1999, Ruptured appendix 08/1978, Cataract surgery 2016, Tonsillectomy/Adenoidectomy 1956. * Family History: N o Family History documented.. * Social History: E xercise regularly D o you exercise? N o. D o you live W ith whom do you live? s pouse only. W hat is your place of residence? W here do you live? P rivate home.?Working status W hat is your working status R etired. M arital status M arital Status M arried. A LESA-C (Standard) D id you have a drink containing alcohol in the past year? N o, P oints 0 , I nterpretation N egative. T obacco Control (Standard) T obacco use: N onsmoker. * Medications: T aking Aspirin Low Dose , Taking Vitamin K2 , Taking Vitamin D3 , Taking PreserVision AREDS 2 , Taking Calcium , Taking Glucosamine Chondroitin , Taking niacin , Taking Womens multivitamin with vitamin D3 , Taking Prolia , Taking traMADol , Taking zonisamide , Taking Baclofen , Taking losartan , Medication List reviewed and reconciled with the patient * Allergies: N .K.D.A. Objective: * Vitals: P ain Scale (NRS): 6. * Examination: G eneral examination: O n examination, the patient is well-developed, well-nourished, well-groomed, alert and oriented x3, normal mood. Walks with nonantalgic gait and can tandem walk. Full lumbar ROM. Tenderness to the right SI joint with palpation. Upon inspection she is kyphotic and has a scoliotic curve to the left. 5/5 muscle strength bilateral lower extremities. Sensory intact lower extremities. Negative clonus bilaterally. Negative straight leg raise bilaterally. 2+ deep tendon reflexes to the bilateral lower extremities. X -ray Imaging Studies: 4 views of the lumbar spine were taken in the office today and reviewed and interpreted by myself as kyphoscoliosis of the lumbar spine. Stable lateral listhesis of L2 on 3, L3 on 4, L4 on 5. No fractures noted. . [facility] Imaging Studies: [facility] lumbar spine completed at the [facility] on 02/09/2023; impression: Very limited examination due to extreme scoliosis and grade 1-2 left lateral listhesis of L1, L2, L3, L4 in relation to the next lower level. The spinal cord appears to be pulled tightly against the right side of the central canal which likely contributes to patient's symptoms. At L3-4 the cord appears compressed between the vertebral body and right facet joints. Multilevel moderate marked foramen narrowing, predominantly on the right side, but also seen on the left at several levels. Mild right lateral wedging of several vertebral bodies, but no acute or subacute compression fracture. . Assessment: * Assessment: 1. S monica stenosis, lumbar region without neurogenic claudication - M48.061 (Primary) ? 2 . O ther forms of scoliosis, lumbar region - M41.86 1. Kyphoscoliosis 2. L2-5 lumbar central canal stenosis/NFS. Plan: * Treatment: * Follow Up: p rn Forms: * Images: * Electronic signature of Conrado Founatin PA-C on 06/27/2025 at 11:00 AM EDT Sign off status: Pending * Provider: COLETTE Gotti Date: 0 03/03/2024 Generated for Fabián bryan/Nino/Chikis on: 1 11:00 AM EDT History and Physical Notes * HPI (History of Present Illness) Category Sub-Category Detail Notes Category Not es General Follow Up Information Dictated by Sosa Delgado PA-C Thank you for referring your patient to see Dr. Harden in surgical spine consultation at the [facility]. The patient is a 78-year-old female that presents with complaints of low back pain that radiates into her right leg. She is variances pain, numbness, and tingling from the back down the right leg to the ankle. She will sometimes have symptoms in her left leg. She has seen a previous surgeon who told her that the risks would outweigh the benefits of a big surgery to fix her scoliosis. She is here today for a second opinion. She has been seeing [place] pain management and had her last EDWIN in November that did not help at all. She takes Tylenol and tramadol for pain control with some relief. She has tried physical therapy for before which did not help. Walking and standing makes the pain and symptoms worse. She has a VAS score of 6 out of 10. Sitting helps relieve her pain. She is a non-smoker. General Info per Patient Report Side affected is Right Joint or body part affected is Lower selene k, Leg Work related: No Motor vehicle accident: No Type of pain: Pain in lower back ( mostly on right side) runs down my leg Third democrat responsibility: No What activities make your symptoms worse ? Standing, Walking, lying on your back Which of the following treat ments have you tried? Anti-Inflammatory medications, Muscle, r elaxants, Narcotic pain medications, Hot packs, Physical Therapy treatment, injections Have you been seen by a [place] ist in the last year? Yes Do you have any dental problems? No What activities help the pain? sitting, lying on your left side Examination Category Sub-Category Detail Notes Category Not es General examination On exami nation, the patient is well-developed, well-nourished, well-groomed, alert and oriented x3, normal mood. Walks with nonantalgic gait and can tandem walk. Full lumbar ROM. Tenderness to the right SI joint with palpation. Upon inspection she is kyphotic and has a scoliotic curve to the left. 5/5 muscle strength bilateral lower extremities. Sensory intact lower extremities. Negative clonus bilaterally. Negative straight leg raise bilaterally. 2+ deep tendon reflexes to the bilateral lower extremities. X-ray Imaging Studies 4 views of the lumbar spine were taken in the office today and reviewed and interpreted by myself as kyphoscoliosis of the lumbar spine. Stable lateral listhesis of L2 on 3, L3 on 4, L4 on 5. No fractures noted. MRI Imaging Studies MRI lumbar spine completed at the [facility] on 02/09/2023; impression: Very limited examination due to extreme scoliosis and grade 1-2 left lateral listhesis of L1, L2, L3, L4 in relation to the next lower level. The spinal cord appears to be pulled tightly against the right side of the central canal which likely contributes to patient's symptoms. At L3-4 the cord appears compressed between the vertebral body and right facet joints. Multilevel moderate marked foramen narrowing, predominantly on the right side, but also seen on the left at several levels. Mild right lateral wedging of several vertebral bodies, but no acute or subacute compression fracture. Consultation Request Notes Referral Date Referring Provider Referred Provider Not es 03/03/2024 Larry Ross NARENDRANA TH REFERRAL FOR SPINAL CORD STIMULATOR
--- OUTSIDE RECORDS SUMMARY | 2025-06-27 11:00 | XMS_ITS | Patient Health Record ---
Author Organization The [facility] in [place] Address [address] [place] [address] Care Team Providers Care Ingot Header Name Role Phone Kimber Price Primary Care Provider Trey Motley Ottoniel [phone] Allergies No Known Allergies Results Component Value [...] 10:23:32 AM Interpretation: Performing Lab: Notes/Report: [facility] , Calcium 9.3 8.5-10.1 mg/dL Performing Lab: see note ML - [facility] LB CREATININE Reviewed date:08/07/2024 10:23:32 AM Interpretation: Performing Lab: Notes/Report: [facility] , Creatinine 0.78 0.55-1.02 mg/dL Estimated GFR ( Ginger >60 >=60 mL/min/1.73m 2 Estimated GFR (Non- Miriam >60 >=60 mL/min/1.73m 2 Performing Lab: see note ML - [facility] LB MM tomosynthesis screening B I Reviewed date:08/11/2024 12:33:27 PM Interpretation: Performing Lab: Notes/Report: Source Facility: [facility]-[address] [place] [address] [place] [address] Mammography Report Signed Patient: LETTY COFFEY MR#: [id number] : 1945 Acct:[id number] Age/Sex: 79 / F ADM Date: 08/11/24 Loc: MAMMO Attending Dr: BREANNE HENDERSON Ordering Physician: BREANNE HENDERSON Results: Date of Service: 08/11/24 Follow Up: Procedure(s): MM tomosynthesis screening BI Accession Number(s): [id number] cc: KIMBER PRICE ; BREANNE HENDERSON Patient Name: LETTY COFFEY MR#: [id number] : 1945 Exam Date: 08/11/2024 Ordering Doctor: DR. BREANNE HENDERSON [facility] RADIOLOGY REPORT PROCEDURE: MM TOMOSYNTHESIS SCREENING BI [...] Treatments None Family Cancers None LOCATION: [facility] BREAST COMPOSITION: There are scattered areas [...] Dictated By: Matthew Coffey M.D. Signed By: 08/11/241115 DD/ 15 TD/TT: Business Development Professional: shoulder LT wo temo Reviewed date:08/28/2024 12:07:54 PM Interpretation: Performing Lab: Notes/Report: Source Facility: [place] [address] Magnetic Resonance Report Signed Patient: LETTY COFFEY MR#: [id number] : 1945 Acct:[id number] Age/Sex: 79 / F ADM Date: 08/22/24 Loc: MRI Attending Dr: Hayes Lepe M.D. Ordering Physician: Hayes Lepe M.D. Date of Service: 08/22/24 Procedure(s): shoulder LT wo temo Accession Number(s): [id number] cc: KIMBER PRICE ; Hayes Lepe M.D. [place] [address] Patient Name: LETTY COFFEY MRN: [id number] date: 1945 Sex: F Assigned Patient Location: MRI Current Patient Location: MRI Accession/Order Number: [id number] Exam Date: 08/22/2024 09:00 Report Date: 08/23/2024 11:39 At the request of: HAYES LEPE Procedure: shoulder LT wo con EXAMINATION: MR shoulder [...] Signed By: 08/23/24 1141 DD/ 1139 TD/TT: Business Development Professional: CALCIUM Reviewed date:02/08/2025 03:44:08 PM Interpretation: Performing Lab: Notes/Report: [facility] , Calcium 9.1 8.5-10.1 mg/dL Performing Lab: see note ML - [facility] LB CREATININE Reviewed date:02/08/2025 03:45:06 PM Interpretation: Performing Lab: Notes/Report: [facility] , Creatinine 0.58 0.55-1.02 mg/dL Estimated GFR ( Ginger >60 >=60 mL/min/1.73m 2 Estimated GFR (Non- Miriam >60 >=60 mL/min/1.73m 2 Performing Lab: see note ML - [facility] LB UA RANDOM W or MICROSCOPIC Reviewed date:06/05/2025 10:36:47 AM Interpretation: Performing Lab: Notes/Report: [facility] , Color Urine LT. YELLOW YELLOW Clarity Urine CLOUDY CLEAR Specific [place] Urine 1.020 1.005-1.025 pH Urine 6.0 5.0-9.0 [...] #/LPF Performing Lab: see note ML - [facility] Urine Culture - [facility] Reviewed date:06/11/2025 03:31:37 PM Interpretation: Performing Lab: Notes/Report: [facility] , Urine Culture - [facility] See Below For Report [place] [facility] Urine Culture - [facility] Isolated Testing performed at [facility] Urine Culture - FR Antibiotic Interpretation SUSHANT Status Organism: 1.1 O:[facility] Urine Culture - FR [address] [place] [address] [place] [facility] Urine Culture - [facility] Isolated Testing performed at [facility] Urine Culture - FR Antibiotic Interpretation SUSHANT Status Organism: 1.1 O:[facility] U[facility] - [facility] See Below For Report [place] [facility] Urine Culture - [facility] Isolated Testing performed at [facility] Urine Culture - FR Antibiotic Interpretation SUSHANT Status Organism: 1.1 O:[facility] Urine [facility] - [facility] See Below For Report [place] [facility] Urine Culture - [facility] Isolated Testing performed at [facility] Urine Culture - FR Antibiotic Interpretation SUSHANT Status Organism: 1.1 O:[facility] Urine [facility] - [facility] >100,000 [place] [facility] Urine Culture - [facility] Isolated Testing performed at [facility] Urine Culture - FR Antibiotic Interpretation SUSHANT Status Organism: 1.1 O:[facility] Urine [facility] - [facility] See Below For Report [place] [facility] Urine Culture - [facility] Isolated Testing performed at [facility] Urine Culture - FR Antibiotic Interpretation SUSHANT Status Organism: 1.1 O:[facility] Urine Culture - [facility] Ampicillin S F [place] [facility] Urine Culture - [facility] Isolated Testing performed at [facility] Urine Culture - FR Antibiotic Interpretation SUSHANT Status Organism: 1.1 O:[facility] Urine Culture - [facility] Daptomycin S F [place] [facility] Urine Culture - [facility] Isolated Testing performed at [facility] Urine Culture - FR Antibiotic Interpretation SUSHANT Status Organism: 1.1 O:[facility] Urine Culture - [facility] Levofloxacin S F [place] [facility] Urine Culture - [facility] Isolated Testing performed at [facility] Urine Culture - FR Antibiotic Interpretation SUSHANT Status Organism: 1.1 O:[facility] Urine Culture - FR Linezolid S F [place] [facility] Urine Culture - [facility] Isolated Testing performed at [facility] Urine Culture - FR Antibiotic Interpretation SUSHANT Status Organism: 1.1 O:[facility] Urine Culture - FR Nitrofurantoin S F [place] [facility] Urine Culture - [facility] Isolated Testing performed at [facility] Urine Culture - FR Antibiotic Interpretation SUSHANT Status Organism: 1.1 O:[facility] Urine Culture - [facility] Tetracycline S F [place] [facility] Urine Culture - [facility] Isolated Testing performed at [facility] Urine Culture - FR Antibiotic Interpretation SUSHANT Status Organism: 1.1 O:[facility] Urine Culture - [facility] Vancomycin S F [place] [facility] Urine Culture - [facility] Isolated Testing performed at [facility] Urine Culture - FR Antibiotic Interpretation SUSHANT Status Organism: 1.1 O:[facility] Urine Culture - [facility] Ciprofloxacin I F [place] [facility] Urine Culture - [facility] Isolated Testing performed at [facility] Urine Culture - FR Antibiotic Interpretation SUSHANT Status Organism: 1.1 O:[facility] Performing Lab: see note ML - [facility] LB SEE REPORT - Site Leasing Agent Id information not found for OBX-specific agent producer legend XR DEXA axial skeleton Reviewed date:08/09/2024 11:11:46 AM Interpretation: Performing Lab: Notes/Report: Source Facility: [place] [address] [place] [address] XRay Report Signed Patient: LETTY COFFEY MR#: [id number] : 1945 Acct:[id number] Age/Sex: 79 / F ADM Date: 08/07/24 Loc: [facility] Attending Dr: KIMBER PRICE Ordering Physician: KIMBER PRICE Date of Service: 08/07/24 Procedure(s): XR DEXA axial skeleton Accession Number(s): [id number] cc: KIMBER PRICE [place] [id number] Patient Name: LETTY COFFEY MRN: [facility]:[id number] date: 1945 Sex: F Assigned Patient Location: [facility] Accession/Order Number: [id number] Exam Date: 08/07/2024 08:55 Report Date: 08/09/2024 07:30 At the request of: KIMBER PRICE Procedure: XR DEXA axial skeleton EXAMINATION: XR [...] prevention and treatment of osteoporosis. Osteoporos Int. 2021;3310):8211-8708. doi: 10.1007/t72841-996-78184-j. Epub 2021Jan 22. Erratum in: Osteoporos Int. 2021Apr 23;: PMID: [id number]; PMCID: [id number]. Electronically authenticated by: YOUSUF ORTIZ Date: 08/09/2024 07:30 Dictated By: Yousuf Ortiz M.D. Signed By: 08/09/24732 DD/ 9 TD/TT: Business Development Professional: XR shoulder LT min 2V Reviewed date:08/07/2024 10:23:32 AM Interpretation: Performing Lab: Notes/Report: Source Facility: [place] [address] XRay Report Signed Patient: LETTY COFFEY MR#: [id number] : 1945 Acct:[id number] Age/Sex: 79 / F ADM Date: 08/03/24 Loc: RAD Attending Dr: Mariposa Fuentes YARD SWITCH OPERATOR Ordering Physician: Mariposa Fuentes NP Date of Service: 08/03/24 Procedure(s): XR shoulder LT min 2V Accession Number(s): [id number] cc: KIMBER PRICE Anna NP [place] [address] Patient Name: LETTY COFFEY MRN: [id number] date: 1945 Sex: F Assigned Patient Location: RAD Current Patient Location: RAD Accession/Order Number: [id number] Exam Date: 08/03/2024 10:07 Report Date: 08/07/2024 08:07 At the request of: MARIPOSA FUENTES Procedure: XR shoulder LT min 2V PROCEDURE: [...] M.D. Signed By: 08/07/24809 DD/ 6 TD/TT: Business Development Professional: XR hip RT min 2V Reviewed date:08/17/2024 01:38:49 PM Interpretation: Performing Lab: Notes/Report: Source Facility: [place] [address] XRay Report Signed Patient: LETTY COFFEY MR#: [id number] : 1945 Acct:[id number] Age/Sex: 79 / F ADM Date: 08/15/24 Loc: RAD Attending Dr: Hayes Lepe M.D. Ordering Physician: Hayes Lepe M.D. Date of Service: 08/15/24 Procedure(s): XR hip RT min 2V Accession Number(s): [id number] cc: KIMBER PRICE ; Hayes Lepe M.D. [place] [address] Patient Name: LETTY COFFEY MRN: [id number] date: 1945 Sex: F Assigned Patient Location: [facility] Accession/Order Number: [id number] Exam Date: 08/15/2024 14:52 Report Date: 08/17/2024 [...] Matthew Coffey M.D. Signed By: 08/17/2452 DD/ 8 TD/TT: Business Development Professional: Reason For Referral No Information Medications Medication [...] MOUTH EVERY DAY; Duration: 90 days Active Ouxrvk-Dxkor-TZX-Double Str 500-400-167 MG 1 tablet Orally BID [...] 1 capsule Orally Twice a day; Duration: 10 06/08/2025 Active Social History Tobacco Use: Social [...] W/U Status Risk Notes Problem Essential hypertension (22501460) Essential (primary) hypertension (I10) Active confirmed Problem Age-related osteoporosis (488663267) Age-related osteoporosis without current pathological fracture (M81.0) Active confirmed Problem Chronic maxillary sinusitis (17575368) Chronic maxillary sinusitis (J32.0) Active confirmed Problem Hyperlipidemia (73224483) Hyperlipidemia (E78.5) Active confirmed Problem Rotoscoliosis (M41.80) Active confirmed Vital Signs Blood pressure diastolic 60 mm Hg 06/04/2025 Height 61.5 in 06/04/2025 Blood pressure systolic 122 mm Hg 06/04/2025 Weight 150.4 lbs 06/04/2025 BMI 27.95 kg/m2 06/04/2025 Encounters Encounter Location Date Provider Diagnosis [facility] [address] [facility] [place] [address] 07/31/2024 Kimber Price Age-related osteoporosis without current pathological fracture M81.0 [facility] [address] [place] [address] 08/11/2024 Kimber Price [facility] [address] [facility] [address] 05/17/2025 Kimber Price UTI symptoms R39.9 [facility] [address] [facility] [address] 06/05/2025 Kimber Price [facility] [address] [place] [address] 06/11/2025 Kimber Price Dysuria R30.0 [facility] [address] [place] [address] 06/07/2025 Trey Hoy Dysuria R30.0 [facility] [address] [place] [address] 11/13/2024 Kimber Price Left hand pain M79.6 42 [facility] [address] [place] [address] 05/17/2025 Kimber Price UTI symptoms R39.9 [facility] [address] [place] [address] 06/04/2025 Kimber Price Dysuria R30.0 Assessments Encounter [...] MEDICARE [place] [address] [place] [address] [id number] ErlindaNaunLetty Self - patient is the insured O MEDICARE SUPPLEMENT [address] [place] [address] [id number] Letty Coffey Self - patient is the insured Medical (General) History Medical History History ICD Code Hypertension I10 Osteoporosis M81.0 Low back pain associated wit h a spinal disorder other than radiculopathy or spinal stenosis M54.50 Surgical History Surgery Date(Month/Year) appendectomy hysterectomy Hospitalization History Reason Date(Month/Year) see above
--- OUTSIDE RECORDS SUMMARY | 2025-06-27 11:00 | XMS_ITS | Encounter Summary ---
Author Organization [facility] Address [address] [place] [address] Care Team Providers Care Bulk Station Agent Name Role Phone Kimber Price MD Unavailable [phone] Wiley Price MD Primary Care Provider [phone] Encounter Details Date Type Department Care Team (Late st Contact Info) Description 08/14/2024 Orders Only SARAH Noel JOSE [address] [place] [address] Kriss Velez, DO [address] [place] [address] Social History Tobacco Use Types [...] 07/04/2025 11:15 AM EDT Clinical [facility] [address] [place] [address] Bakari Nassar, DO [address] [place] [address] 06/05/2026 10:15 AM EDT Office Visit JUAN MPatrick McBertdoreen GARCIA [address] [place] [address] Kriss Velez, DO [address] [place] [address] documented as of this encounter [...] on filedocumented in this encounter Care Teams Bulk Station Agent Relationship Specialty Start Date End Date Wiley Price MD [address] [place] [address] [id number] PCP - General Family Medicine 12/10/23 Kimber Price MD [facility] [place] [address] Referring Physician Family Medicine 10/15/23 documented as of this encounter
--- OUTSIDE RECORDS SUMMARY | 2025-06-27 11:00 | XMS_ITS | Clinical Summary ---
Author Organization [facility] Address [address] [place] [address] Care Team Providers Care Supervising Nurse Name Role Phone Kimber Price MD Unavailable [phone] Wiley Price MD Primary Care Provider [phone] Allergies No known active allergies Medications aspirin [...] syringe as directed Subcutaneous Active Glucosamine-Cho ndroitin-MSM (Neoqok-Gknvb-A SM-Double Str) 500-400-167 MG tablet every 12 [...] each day at the same time Active [place]-3 Fatty Acids (Fish Oil) 1200 MG capsule [...] Description 05/30/2025 8:45 AM EDT Clinical Support [facility] [address] [place] [address] Bakari Nassar, Follow-up; Retinal Injection 05/30/2025 Bamboo flowsheet [facility] [address] [place] [address] Bakari Nassar, 05/30/2025 Travel 05/24/2025 10:00 AM EDT Office Visit JUAN MPatrick [place] GARCIA [address] [place] [address] Kriss Velez, Vaginal atrophy (Primary Dx); Encounter for screening mammogram for breast cancer; Cystocele, midline 05/24/2025 Bamboo flowsheet [facility] [place] [facility] [address] [place] [address] Kriss Velez, 05/24/2025 Travel 05/23/2025 8:30 AM EDT Clinical Support [facility] [address] [place] [address] Bakari Nassar, Retinal Injection; Macular Degeneration 05/23/2025 Bamboo flowsheet [facility] [address] [place] [address] Bakari Nassar DO 05/23/2025 Travel 04/18/2025 8:30 AM EDT Clinical Support SARAH [facility] [address] [place] [address] Bakari Nassar DO Retinal Injection; Macular Degeneration 04/18/2025 Bamboo flowsheet [facility] [address] [place] [address] Bakari Nassar DO 04/18/2025 Travel [...] 07/04/2025 11:15 AM EDT Clinical Support SARAH [facility] [address] [place] [address] Bakari Nassar DO [address] [place] [address] 06/05/2026 10:15 AM EDT Office Visit JUAN MPatrick [place] GARCIA [address] [place] [address] Kriss Velez DO [address] [place] [address] Health Maintenance Due Date Last [...] 2 MG/0.05ML Route: Intravitreal, Site: Right Eye [facility]: 40917-429-25, Lot: [id number], Expiration date: 06/27/2026, Waste: 0 mL Post-op [...] [facility]: 56235-016-77, Lot: [id number], Expiration date: 06/27/2026, Waste: 0 mL Post-op [...] 2 MG/0.05ML Route: Intravitreal, Site: Right Eye [facility]: 66964-674-64, Lot: [id number], Expiration date: 06/27/2025, Waste: 0 mL Post-op [...] Final from Last 3 Months Insurance [address] [place] [address] MEDICARE MEDICAL [employer]STINGS Care Teams Supervising Nurse Relationship Specialty Start Date End Date Wiley Price MD [address] [place] [address] PCP - General Family Medicine 12/10/23 Kimber Price MD [address] [place] [address] Referring Physician Family Medicine 10/15/23
[2025-06-27 11:14] LABS: Glucose Urine UA NEGATIVE (NEGATIVE)
[2025-06-27 12:01] LABS: Cast Seen? NONE SEEN #/LPF (NONE SEEN); Crystals Seen? None Seen #/HPF (None Seen); Urine Culture Indicated ALREADY ORDERED
== END 2025-06-27 10:57 | disposition home or self-care (01) ==
LOC: LAB 10:59
PROVIDERS: PCP Nurse Practitioner Family; Visit Provider Nurse Practitioner Family
DX: R30.0 Dysuria (principal)
CPT/HCPCS: 81001; 87086

== ENCOUNTER 2025-08-13 07:59 | Outpatient (RCR) | payer MEDICARE, OTHER, SELFPAY ==
[2025-08-13 08:17] LABS: Calcium 8.9 mg/dL (8.5-10.1); Estimated GFR (African America >60 (>=60 mL/min/1.73m^2); Estimated GFR (Non-African Ame >60 (>=60 mL/min/1.73m^2)
[2025-08-13 08:40] VITALS: BP 132/79; PULSE 53; TEMP 36.4; O2SAT 95
[2025-08-13] MEDS: DENOSUMAB 60 MG/ML SYRINGE SUBQ (09:01)
== END 2025-08-27 08:27 | disposition home or self-care (01) ==
LOC: LAB 07:59
PROVIDERS: PCP Nurse Practitioner Family; Visit Provider Nurse Practitioner Family
DX: M81.0 Age-related osteoporosis without current pathological fracture (principal); Z51.81 Encounter for therapeutic drug level monitoring
CPT/HCPCS: 36415; 82310; 82565; 96372; J0897

== ENCOUNTER 2025-08-13 08:09 | Outpatient (OUT) | payer MEDICARE, OTHER, SELFPAY ==
--- OUTSIDE RECORDS SUMMARY | 2025-08-13 08:13 | XMS_ITS | CCD ---
Author Organization [facility] CliniSyal Care Team Providers Care Spine Surgeon Name Role Phone EMRE STAPLETON Unavailable Unavailable [...] MARTHA, DR LUIS Becker Primary Care Unavailable CANDOR, DR YOUSUF Ferguson Consulting Unavailable MARTHA, DR [...] Nguyen Consulting Unavailable LEES ., DR YULI Ngueyn Admitting Unavailable LEES ., DR YULI Nguyen Attending Unavailable THMOAS, DR LUIS Becker Primary Care Unavailable LEES [...] LEES ., DR YULI Nguyen Attending Unavailable CANDOR, DR YOUSUF Ferguson Consulting Unavailable THOMAS, DR [...] NARENDRANATH Attending Johanny vailable THOMAS, DR LUIS Becekr Primary Care Unavailable RUIZ ., SHAWNA Consulting [...] Wiley Price MD Primary Care Provider [phone] Wiley Price MD Primary Care Provider [phone] Giradhaitis , Andrius Yo Attending Unavailable Giedraitis , Andrius Vytautorlin Attending Unavailable Giedraitis , Andrius Vytautorlin Attending Unavailable Giedraitis , Andrius Vytautas Attending Unavailable Giedraitis , Andrius Vytautas Attending Unavailable Giedraitis , Andrius Vytautas Attending Unavailable Giedraitis , Andrius Vytautas Attending Unavailable Giedraitis , Andrius Vytautas Attending Unavailable Giedraitis , Andrius Vytjosué Attending Unavailable DUSTY NASSAR Attending Unavailable DUSTY NASSAR Attending Unavailable DUSTY NASSAR Attending Unavailable DUSTY NASSAR Attending Unavailable DUSTY NASSAR Attending Unavailable KRISS VELEZ Attending Unavailable DUSTY NASSAR Attending Unavailable DUSTY NASSAR Attending Unavailable DUSTY NASSAR Attending Unavailable DUSTY NASSAR Attending Unavailable Kimber Price MD Unavailable Wiley Price MD Primary Care Provider [phone] Allergies Allergy ClassificationReported Allergen(s)Allergy TypeDate of OnsetReaction(s) Facility (1 source)ALLERGIES NOT ON FILE; Translations: [ALLERGIES NOT ON FILE]Propensity to adverse reactions (disorder)[facility] Repository Medications Current Medications MedicationDrug Class(es)DatesSig (Normalized)Sig (Original)amoxicillin 875 mg / clavulanate 125 mg oral tablet (1 source)Penicillin-class AntibacterialStart: 43-14-0770pkvb 1 tablet by mouth every twelve hoursAmoxicillin-Pot Clavulanate 875-125 MG 1 tablet Orally every 12 hrs for 10 day(s) Jun, Activeascorbic acid 113 mg / copper gluconate 0.4 mg / docosahexaenoic acid 87.5 mg / eicosapentaenoic acid 163 mg / lutein 2.5 mg / tocopherol acetate 100 unt / zeaxanthin 0.5 mg / zinc oxide 17.4 mg oralcapsule (20 sources)Vitamin CMultiple Vitamins-Minerals (PreserVision AREDS 2) capsule 1 (one) time each day at the same time ActivePreserVision AREDS 2 - as directed Orally Activeaspirin 81 mg delayed release oral tablet (20 sources)Platelet Aggregation Inhibitor, Nonsteroidal Anti-inflammatory Drug aspirin 81 MG EC tablet 1 (one) time each day at the same time Activetake 1 tablet by mouth once dailyAspirin 81 81 MG 1 tablet Orally Once a day Active baclofen 10 mg oral tablet (20 sources)gamma-Aminobutyric Acid-ergic AgonistStart: 72-42-5563cvzobhqh (Lioresal) 10 MG tablet every 12 (twelve) hours 04/30/2023 Activetake 1 tablet by mouth every twelve hoursBaclofen 10 MG 1 tablet as needed Orally Twice a day Activecalcium carbonate 1500 mg oral tablet (20 sources)take 1 tablet by mouth once at mealtimecalcium carbonate (Super Calcium) 1500 (600 Ca) MG tablet 1 tablet with meals Orally Once Activetake 1 tablet by mouth every twelve hoursCalcium 600 MG 1 tablet with meals Orally Twice a day Activecefdinir 300 mg oral capsule (10 sources)Cephalosporin AntibacterialStart: 94-71-7814vesh 1 capsule by mouth in the morningcefdinir (Omnicef) 300 MG capsule Take 300 mg by mouth in the morning and 300 mg before bedtime. 05/17/2025 Activecholecalciferol 0.025 mg oral tablet (20 sources)Vitamin Dcholecalciferol (Vitamin D3) 25 MCG (1000 UT) tablet 1 (one) time each day at the same time Activetake 1 tablet by mouth every twenty- four hoursVitamin D 50 MCG (2000 UT) 1 tablet Orally Once a day Active chondroitin sulfates 400 mg / glucosamine sulfate 500 mg / methylsulfonylmethane 167 mg oral tablet (20 sources)Pxwxraypppl-Znoccqdpkhv-QHE (Ophxwm-Sdays-CLE-Double Str) 500-400-167 MG tablet every 12 (twelve) hours Active1 ml denosumab 60 mg/ml prefilled syringe (20 sources)RANK Ligand Inhibitordenosumab (Prolia) 60 MG/ML solution prefilled syringe as directed Subcutaneous ActiveFish Oils (5 sources)take 1 capsule by mouth once dailyFish Oil 1000 MG 1 capsule Orally Once a day CmpouhHjnrkv-Grbd-DOL-Bu-U-MrXl-SeCu - (5 sources)Haqhyy-Wsim-MBA-Li-Z-TbOs-SeCu - as directed Orally Activelosartan potassium 25 mg oral tablet (20 sources)Angiotensin 2 Receptor BlockerStart: 74-18-8720iewptcdc (Cozaar) 25 MG tablet Oral for 90 Days 02/19/2023 ActiveMagnesium glycinate (20 sources)Magnesium Glycinate 100 MG capsule 2 capsules 1 (one) time each day at the same time ActiveMagnesium Glycinate 100 MG as directed Orally Active Multiple Vitamins-Minerals (Womens 50+ Multi Vitamin) tablet (20 sources)Multiple Vitamins-Minerals (Womens 50+ Multi Vitamin) tablet as directed Orally Activeniacin 500 mg oral tablet (20 sources)Nicotinic Acidniacin 500 MG tablet 1 (one) time each day at the same time ActiveOmega-3 Fatty Acids (Fish Oil) 1200 MG capsule delayed-release (20 sources)take 1 capsule by mouth every twelve hoursOmega-3 Fatty Acids (Fish Oil) 1200 MG capsule delayed-release 1 capsule every 12 (twelve) hours Active traMADol hydrochloride 50 mg oral tablet (20 sources)Opioid AgonistStart: 98-21-3745xqlb 1 tablet by mouth twice daily as needed for paintraMADol (Ultram) 50 MG tablet TAKE 1 TABLET BY MOUTH TWICE A DAY NEEDED FOR PAIN MUST LAST 30 DAYS 01/27/2024 Activevitamin k 0.1 mg oral tablet (5 sources)Vitamin K2 100 MCG as directed Orally Activevitamin k2 0.1 mg oral capsule (20 sources)Menaquinone-7 (Vitamin K2) 100 MCG capsule as directed Orally Active Womens 50+ Multi Vitamin - (5 sources)Womens 50+ Multi Vitamin - as directed Orally Activezonisamide 50 mg oral capsule (20 sources)Anti-epileptic Agenttake 3 capsules by mouth once daily at bedtime zonisamide (Zonegran) 50 MG capsule TAKE 3 CAPSULES BY MOUTH EVERY DAY AT BEDTIME ActiveZonisamide 50 MG as directed Orally Active Completed/Discontinued Medications MedicationDrug Class(es)DatesSig (Normalized)Sig (Original)0.05 ml aflibercept 40 mg/ml injection (9 sources)Vascular Endothelial Growth Factor InhibitorStart: 08-08-2025 End: mg, Intravitreal, Once PRN Procedure, Starting on Wed08/08/25 at 1008, For 1 doseStart: 07-04-2025 End: 52 mg, Intravitreal, Once PRN Procedure, Starting on Wed07/04/25 at 1156, For 1 doseStart: 05-30-2025 End: 52 mg, Intravitreal, Once PRN Procedure, Starting on Wed05/30/25 at 0912, For 1 doseStart: 05-23-2025 End: 52 mg, Intravitreal, Once PRN Procedure, Starting on Wed05/23/25 at 0911, For 1 doseStart: 04-18-2025 End: 52 mg, Intravitreal, Once PRN Procedure, Starting on Wed04/18/25 at 0854, For 1 doseStart: 03-07-2025 End: 52 mg, Intravitreal, Once PRN Procedure, Starting on Wed03/07/25 at 1319, For 1 doseStart: 02-28-2025 End: 52 mg, Intravitreal, Once PRN Procedure, Starting on Wed02/28/25 at 1000, For 1 doseStart: 09-26-2024 End: mg, Intravitreal, Once PRN Procedure, Starting on Wed09/26/24 at 0937, For 1 doseStart: 07-25-2024 End: mg, Intravitreal, Once PRN Procedure, Starting on Wed07/25/24 at 1458, For 1 dose4 ml bevacizumab 25 mg/ml injection (2 sources)Vascular Endothelial Growth Factor InhibitorStart: 05-30-2024 End: 92-01-7381lqcqsonsjnx (Avastin) intravitreal chemo injection 1.25 mgStart: 05-30-2024 End: .25 mg, Intravitreal, Once PRN Procedure, Starting on Wed05/30/24 at 1038, For 1 doseLidocaine (3 sources)Antiarrhythmic, Amide Local AnestheticStart: 87-93-5189Feeppfsuh Mar, 20 mgtriamcinolone acetonide 40 mg/ml injectable suspension (9 sources)CorticosteroidStart: 98-02-1038Dxdbxcl-40 Mar, 40 mg Problems Active Problems Problem ClassificationProblemDateDocumented DateEpisodic/ChronicCataract (20 sources)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; Translations: [Other secondary cataract, right eye]Onset: [id number] of lipid metabolism (6 sources)Hyperlipidemia; Translations: [Hyperlipidemia, unspecified]Chronic Diverticulosis and diverticulitis (6 sources)Diverticular disease of colon; Translations: [Diverticulosis of colon]ChronicEssential hypertension (8 sources)Essential hypertension; Translations: [Essential (primary) hypertension]Onset: 74-14-6036PovlizsPqcnf valve disorders (6 sources)Heart murmur; Translations: [Cardiac murmur, unspecified]Episodic Menopausal disorders (2 sources)Atrophy of vagina; Translations: [Postmenopausal atrophic vaginitis] 07-40-8159CqsvuwyDpciipwoxew deficiencies (5 sources)Vitamin D deficiency; Translations: [Vitamin D deficiency, unspecified]ChronicOsteoarthritis (1 source)Unilateral primary osteoarthritis, right hip; Translations: [UNI PRIM OSTEOARTHRITIS RT HIP]Onset: 23-16-1807IuqyfpcAdjepeyhxxvc (5 sources)Age-related osteoporosis without current pathological fracture; Translations: [AGE-REL OSTEOPOR W/OCURR PATH FX]Onset: 53-65-3749CthfpqhXlczd acquired deformities (1 source)Other forms of scoliosis, lumbar region; Translations: [OTHER FORMS SCOLIOSIS LUMBAR REGION]Onset: 16-85-8986KktyqmrNqozw acquired deformities (4 sources)Scoliosis, unspecified; Translations: [SCOLIOSIS UNSPECIFIED]Onset: 22-74-2594TrxejddJmelt acquired deformities (1 source)Other forms of scoliosis, site unspecified; Translations: [OTHER FORMS SCOLIOSIS SITE UNS]Onset: 43-02-7012WpedmnwKxhft acquired deformities (5 sources)Scoliosis deformity of spine; Translations: [Scoliosis, unspecified] ChronicOther aftercare (3 sources)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; Translations: [OTH STRATEGY ASSOCIATE CURRENT DRUG THERAPY]Onset: 22-87-3128BicctwmbGjbui bone disease and musculoskeletal deformities (5 sources)Osteopenia; Translations: [Other specified disorders of bone density and structure, unspecified site]EpisodicOther bone disease and musculoskeletal deformities (6 sources)Other specified disorders of bone density and structure, unspecified site; Translations: [OTH D/O BONE DEN STRUCT UNS SITE]Onset: 97-27-6022Prliiyhd Other circulatory disease (5 sources)Elevated blood-pressure reading without diagnosis of hypertension; Translations: [Elevated blood-pressure reading, without diagnosis of hypertension]EpisodicOther circulatory disease (1 source)Elevated blood-pressure reading, without diagnosis of hypertension; Translations: [Elevated blood pressure reading]EpisodicOther connective tissue disease (1 source)Pain in right lower leg; Translations: [PAIN IN RIGHT LOWER LEG]Onset: 17-28-9547UdweeqkjRafpc hereditary and degenerative nervous system conditions (1 source)Other dystonia; Translations: [OTHER DYSTONIA]Onset: 98-33-9562Wobqllm Other nervous system disorders (6 sources)Chronic pain; Translations: [Other chronic pain]ChronicOther nervous system disorders (2 sources)Other chronic pain; Translations: [OTHER CHRONIC PAIN]Onset: 54-82-1492CbnqwhcDrxue nervous system disorders (4 sources)Other specified mononeuropathies of right lower limb; Translations: [OTH SPEC MONONEUROPATH RT LOW LIMB]Onset: 32-95-7205MpxdavjXrrtn nervous system disorders (1 source)Other specified mononeuropathies; Translations: [OTHER SPECIFIED MONONEUROPATHIES]Onset: 96-54-2419LlswoofQaefc non-traumatic joint disorders (5 sources)Arthralgia of the pelvic region and thigh; Translations: [Pain in right hip]EpisodicOther non-traumatic joint disorders (6 sources)Pain in left shoulder; Translations: [PAIN IN LEFT SHOULDER]Onset: 82-53-7722NsfppompGecen non-traumatic joint disorders (6 sources)Pain in right hip; Translations: [PAIN IN RIGHT HIP]Onset: 03-12-2022 EpisodicOther screening for suspected conditions (not mental disorders or infectious disease) (3 sources)Encounter for screening mammogram for malignant neoplasm of breast; Translations: [Patient encounter status]Onset: 421573-22-9569ZarjkkyuIsloc upper respiratory infections (1 source)Acute maxillary sinusitis, unspecifiedEpisodicProlapse of female genital organs (2 sources)Midline cystocele; Translations: [Cystocele, midline]05-24-2025 ChronicResidual codes; unclassified (7 sources)Asymptomatic menopausal state; Translations: [Menopause]Onset: 00-03-2833GsvvzwvaTyslvow detachments; defects; vascular occlusion; and retinopathy (20 sources)Exudative age-related macular degeneration; Translations: [Exudative age-related macular degeneration, left eye, with active choroidal neovascularization]Onset: 10-11-2023 Resolved: 878961-34-7691SpxjvsbRdmybevsljf; intervertebral disc disorders; other back problems (16 sources)Other spondylosis with radiculopathy, lumbar region; Translations: [Spondylosis without myelopathy or radiculopathy, lumbar region]Onset: 14-16-2310NtufjrqUcrkknxgfdq; intervertebral disc disorders; other back problems (10 sources)Radiculopathy, lumbar region; Translations: [Intervertebral disc disorders with radiculopathy, lumbar region]Onset: 79-13-8128Nhorcclk Unclassified (1 source)MACULAR PUCKER RIGHT EYE / MACULAR PUCKER RIGHT EYE()Onset: 04-27-2017 Unclassified (4 sources)LOW BACK PAIN, UNSPECIFIED; Translations: [LOW BACK PAIN, UNSPECIFIED]Onset: 16-23-5984Xgbbvemkaksi (1 source)CONTACT W/AND (SUSP) EXPOS COVID-19; Translations: [CONTACT W/AND (SUSP) EXPOS COVID-19]Onset: 09-03-2022 Past or Other Problems Problem ClassificationProblemDateDocumented DateEpisodic/ChronicInflammation; infection of eye (except that caused by tuberculosis or sexually transmitteddisease) (20 sources)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; Translations: [Unspecified blepharitis right eye, upper and lower eyelids]Onset: 871053-59-2778ExtmvtsxCojnb connective tissue disease (5 sources)Other muscle spasm; Translations: [OTHER MUSCLE SPASM]Onset: 15-61-9487FsetmyqgIkqbk connective tissue disease (1 source)Muscle wasting and atrophy, not elsewhere classified, unspecified site; Translations: [MUSCLE WASTING ATROPHY NEC UNS SITE]Onset: 05-21-2022 EpisodicOther connective tissue disease (1 source)Sarcopenia; Translations: [SARCOPENIA]Onset: 39-27-5263OqzxohpiMhpvj eye disorders (20 sources)Dry eyes; Translations: [Dry eye syndrome of bilateral lacrimal glands]Onset: 566407-12-2785TvwdkngsDwweejggywfo (1 source)MACULAR PUCKER RIGHT EYE; Translations: [MACULAR PUCKER RIGHT EYE] Onset: 74-19-6793Xlspkkccfrnq (1 source)LOW BACK PAIN, UNSPECIFIED; Translations: [LOW BACK PAIN, UNSPECIFIED] Onset: 77-17-4943Eaowh infection (6 sources)Disease caused by 2019-nCoV; Translations: [COVID-19] Results Test NameValueInterpretationReference RangeFacilityLeft eye Ophthalmologic treatmenton 36-48-4556YIIK HealthcareRadiology Study observation (narrative)[facility] HealthcareOptical coherence tomography study reporton 33-66-5189ARZR Healthcare Radiology Study observation (narrative)[facility] HealthcareIntravitreal Injection, Pharmacologic Agent - OD - Right Eyeon 47-36-2374XVYL HealthcareRadiology Study observation (narrative)[facility] HealthcareOptical coherence tomography study report on 44-00-6835FYJKDuke Regional HospitalRadiology Study observation (narrative)[facility] HealthcareIntravitreal Injection, Pharmacologic Agent - OD - Right Eyeon 66-83-5085BNWWHCA Midwest DivisionRadiology Study observation (narrative)[facility] HealthcareLeft eye Ophthalmologic treatmenton 35-50-5006CEVPHCA Midwest Division Radiology Study observation (narrative)[facility] HealthcareOptical coherence tomography study reporton 41-70-0274BNNTDuke Regional HospitalRadiology Study observation (narrative)[facility] HealthcareIntravitreal Injection, Pharmacologic Agent - OD - Right Eyeon 53-99-9713ZGJMHCA Midwest DivisionRadiology Study observation (narrative)[facility] HealthcareOptical coherence tomography study report on 70-78-2396FBIIDuke Regional HospitalRadiology Study observation (narrative)[facility] HealthcareIntravitreal Injection, Pharmacologic Agent - OD - Right Eyeon 95-92-5249VXJSHCA Midwest DivisionRadiology Study observation (narrative)[facility] HealthcareOptical coherence tomography study reporton 22-20-9352MVFXMoundview Memorial Hospital and Clinics eye Ophthalmologic treatmenton 36-40-0232LXEVHCA Midwest Division Radiology Study observation (narrative)[facility] HealthcareOptical coherence tomography study reporton 29-78-3872Jjftrxdwb Study observation (narrative)[facility] eye Ophthalmologic treatmenton 76-71-2949BZKVHCA Midwest DivisionRadiology Study observation (narrative)[facility] HealthcareOptical coherence tomography study reporton 47-36-9914VTHNDuke Regional HospitalRadiology Study observation (narrative)[facility] eye Ophthalmologic treatmenton 59-26-2635AXBHHCA Midwest DivisionRadiology Study observation (narrative)[facility] HealthcareOptical coherence tomography study reporton 93-35-7837KUZEDuke Regional Hospital Radiology Study observation (narrative)[facility] eye Ophthalmologic treatmenton 45-41-9978IWVOHCA Midwest DivisionRadiology Study observation (narrative)[facility] HealthcareOptical coherence tomography study reporton 96-94-6914WAWHKindred Hospital - GreensboroRadiology Study observation (narrative)[facility] Izxnnmpddl14ul 13-39-824356Mkvvv with patient. Explained that I had reviewed her imaging with Dr. Lopez last week. He does not recommend fusion surgery or decompressive surgery but thinks SCS may be reasonable option. Briefly discussed procedure for SCS. Patient will check to see if her pain management provider does this. If not, she will call back and I can refer her to someone who does SCS.[place] [address]on 81-77-282143Kekc message for patient on identified voicemail that I had reviewed his imaging with Dr. Lopez. He does not recommend on surgery in the form of instrumented fusion or even foraminotomies/laminectomy as he has not found this to be helpful in patients with extensive scoliosis. May be candidate for spinal cord stimulation. Advised patient that I will call her back on Wednesday to follow-up regarding this.[facility] OhioTelephoneon 05-14-2023 [id number] Letty Coffey 1945 F Date Provider Department Center 05/14/2023 [facility], [facility] Second Fl Family History Problem Relation Age of Onset Other Mother Stomach cancer Father Family Status - Relation Status Age at Mother FatherNormalUniversBlanchard Valley Health SystemConsulton 65-82-3702Rucvgwr [id number] Letty Coffey 1945 F Date Provider Department Center 05/13/2023 148-SALMA, [facility] Second Fl Family History Problem Relation Age of Onset Other Mother Stomach cancer Father Family Status - Relation Status Age at Mother Father Level of Service:81846 [place] OFFICE/OUTPATIENT NEW MODERATE MDM 45-59 MINUTES Reason for Visit and Comments: Consult [484] - Pt is here for a CO visit for Spinal Stenosis.[place] [address]on [id number] for pt to call clinic to schedule with or Dr. Lopez for Lunbar Stenosis. Imaging requested from [facility] OhioMRI LSPINE WO CONon 48-21-0595WIF LSPINE WO CONEXAMINATION: MRI LSPINE WO CON HISTORY: Lumbar radiculitis ; chronic [...] Electronically authenticated by: OFE COFFEY Date: 2023-02-10 07:16[facility] HospitalCALCIUMon 96-91-9736Idjhmzy [Mass/Vol]9.7 mg/dLNormal8.5-10.1 The Uc HealthComment on above:Performed By: #### CA, CREA ####[facility] [address] [place] [id number]. Holly Fisher CREATININEon 47-98-6353Bfmrvbozyg [Mass/Vol]0.62 mg/dLNormal0.55-1.02The [facility]c HealthComment on above:Performed By: #### CA, CREA ####[facility] [address] [place] [id number]. Holly ChangEGFR- AF SWAZI>60Normal>=60The Uc HealthComment on above:Performed By: #### CA, CREA ####[facility] [address] [place] [address]Dr. Holly ChangEGFR-NON AF SWAZI>60Normal>=60The [facility] Comment on above:Performed By: #### CA, CREA ####[facility] [address] [place], [place] [address]Dr. Holly FisherCovid-19 PCR ([facility]VDHAVERH[facility])on 53-31-5059VUBR-CoV-2 (COVID-19) RNA FRED+probe Ql (Unsp spec)Not detectedNormalNOT DETECTEDThe Uc HealthComment on above:Result Comment: This test is not yet approved or cleared by the [place] FDA. When there are no FDA-approved or cleared tests available, and other criteria are met, FDA can make tests available under an emergency access mechanism called an Emergency Use Authorization (EUA). The EUA for this test is supported by the Accounts Payable Or Receivable Clerk of Health and Human Service's (HHS's) declaration [...] of clinical signs and symptoms consistent with SARS-CoV-2.Performed By: #### CVDTB ####[facility] [address] [place] [address]Dr. Holly FisherCovid-19 PCR ([facility])on 23-79-3499YKII-CoV-2 (COVID-19) RNA FRED+probe Ql (Unsp spec)Not detectedNormalNOT DETECTEDThe [facility] on above:Result Comment: This test is not yet approved or cleared by the [place] FDA. When there are no FDA-approved or cleared tests available, and other criteria are met, FDA can make tests available under an emergency access mechanism called an Emergency Use Authorization (EUA). The EUA for this test is supported by the [place] of Health and Human Service's (HHS's) declaration [...] of clinical signs and symptoms consistent with SARS-CoV-2.Performed By: #### CVDTB #### [facility] [address] [place] [address] Dr. Holly FisherCALCIUMon 18-34-2273Nwcznws [Mass/Vol]9.0 mg/dLNormal8.5-10.1The [facility] Miamisburgment on above:Performed By: #### XAVIER JOSHI ####[facility] [address] [place] [address]Dr. Holly Fisher CREATININEon 77-49-2037Ojsgyehzcz [Mass/Vol]0.65 mg/dLNormal0.55-1.02The [facility] on above:Performed By: #### XAVIER JOSHI #### [facility] [address] [place] [address] Dr. Barrera ChangEGFR-AF SWAZI>60Normal>=60The [facility] HospitalComment on above:Performed By: #### XAVIER JOSHI #### [facility] [address] [place] [address] [address] Holly AddisonGFR-NON AF SWAZI>60Normal>=60The Uc HealthComment on above:Performed By: #### XAVIER JOSHI #### [facility] [address] [place] [address] [address] Holly FisherXR LSPINE W_OBLS AND FLEX_EXTon 56-02-1472PA LSPINE W_OBLS AND FLEX_EXTEXAMINATION: XR LSPINE W_OBLS AND FLEX_EXT HISTORY: Low [...] Electronically authenticated by: YOUSUF ORTIZ Date: 2022-05-04 08:47NormDoctors Hospital AUTO DIFFon 12-94-7953MXBB #0.1 103/ulNormal0.0-0.1White HospitalComment on above:Performed By: #### CBC ####[facility] [address] [place] [address]DrGómez FisherBasophils/100 WBC (Bld)1.0 %Normal0.2-2.0White HospitalComment on above:Performed By: #### CBC ####[facility] [address] [place] [address]DrGómez AddisonO #0.2 103/ulNormal0.0-0.7The [facility] HealthComuniversity of mich[facility] on above:Performed By: #### CBC ####[facility] In[address] [place], [place] [address]Dr.Yilan ChangEosinophils/100 WBC (Bld)2.4 %Normal 0.9-7.0The Uc HealthComment on above:Performed By: #### CBC ####[facility] [address] [place], [place] [address]Dr.Holly Fisher Erythrocyte distribution width (RBC) [Ratio]14.4 %Bgrgqa85.0-15.0The [facility]c HealthComment on above:Performed By: #### CBC ####[facility] [address] [place], [place] [address]Dr.Holly FisherHematocrit (Bld) [Volume fraction]41.1 %Pvpeyg47.0-48.0The [facility]c HealthComment on above:Performed By: #### CBC ####[facility] [address] [place], [place] [address]Dr.Holly ChangHemoglobin (Bld) [Mass/Vol]13.4 g/dL Zgasfc06.0-16.0The Uc HealthComment on above:Performed By: #### CBC ####[facility] [address] [place], [place] [address]Dr. Holly ChangIG #0.03 10e3/ulNormal0.00-0.03The Uc HealthComment on above: Performed By: #### CBC ####[facility] [address] [address] [place], [place] [address]Dr.Holly ChangIG %0.5 %Normal0.0-0.5The Uc HealthComment on above:Performed By: #### CBC ####[facility] Ulrsttcy[address] [place], [place] [address]Dr.Holly ChangLYMPH #1.5 103/ulNormal1.2-3.8The Uc HealthComment on above:Performed By: #### CBC ####[facility] Yovidntfnl[address] [place], [place] [address]Dr. Holly ChangLymphocytes/100 WBC (Bld)24.3 %Cshmhp33.5-60.0The [facility] Comment on above:Performed By: #### CBC ####[facility] [address] [address]Dr.Holly FisherMANUAL DIFF REQNONormalThe Uc HealthComment on above:Performed By: #### CBC ####[facility] Hsoqdlehxn[address] [place], [place] [address]Dr.Holly FisherH (RBC) [Entitic mass]30.3 tyYbhauv57.7-34.0The [facility] HospitalComment on above: Performed By: #### CBC ####[facility] Fmssflhccc[address] [place], [place] [address]Dr.Holly FisherHC (RBC) [Mass/Vol]32.6 g/dLNormal 29.9-35.2The [facility]c HealthComment on above:Performed By: #### CBC ####[facility] Htzirensaz[address] [place], [place] [address]Dr. Holly FisherV (RBC) [Entitic vol]93.0 fSVpjyyl62.0-99.0The [facility] Comment on above:Performed By: #### CBC ####[facility] Tfgowtdhep[address] [place], [place] [address]Dr.Holly FisherMONO #0.5 103/ulNormal0.3-0.8 The [facility]c HealthComment on above:Performed By: #### CBC ####[facility] Areepvhpna[address] [place], [place] [address]Dr.Holly Fisher Monocytes/100 WBC (Bld)7.3 %Normal1.7-12.0The [facility]c HealthComment on above: Performed By: #### CBC ####[facility] Emouvoaefh[address] [place], [place] [address]Dr.Holly FisherNEUT #4.1 103/ulNormal1.4-6.5The [facility]c HealthComment on above:Performed By: #### CBC ####[facility] Duzjrrkeek[address] [place], [place] [address]Dr.Holly FisherNeutrophils/100 WBC (Bld)64.5 %Drguvp95.0-75.0The [facility]c HealthComment on above:Performed By: #### CBC ####[facility] [address] [address]Dr.Holly FisherPlatelet mean volume (Bld) [Entitic vol]10.5 fLNormal9.5-13.5 The [facility]Com[facility] on above:Performed By: #### CBC ####[facility] [address] [address]Dr.Holly IqoncQFR858 103/foRobkon804-436Vli [facility] on above:Performed By: #### CBC ####[facility] [address] [address]Dr. Holly ChangRBC4.42 106/ulNormal4.20-5.40The [facility] on above: Performed By: #### CBC ####[facility] [address] [address]Dr.Holly ChangWBC6.3 103/ulNormal4.0-11.0The [facility] on above:Performed By: #### CBC ####[facility] Znhzylxvxr[address] [place], [place] [address]Dr.Holly FisherLIPID PROFILEon 75-36-8284ZZDD-HDL RATIO NORMSKettering Health Greene MemorialComuniversity of [facility] on above:Result Comment: 3.3 - 4.4 LOW RISK 4.4 - 7.1 AVERAGE RISK 7.1 - 11.0 MODERATE RISK >11.0 HIGH RISKPerformed By: #### LIPID, CMP #### [facility] [address] [address] [address] Holly FisherCholesterol [Mass/Vol]263 mg/dLCritically high<=200[facility] on above:Performed By: #### LIPID, CMP #### [facility] [address] [address] [address] Holly FisherCholesterol in HDL [Mass/Vol]63 mg/dLCritically qahq71-07Wxp [facility] on above:Performed By: #### LIPID, CMP #### [facility] [address] [address] [address] Holly FisherCholesterol in LDL [Mass/Vol]160.2 mg/dLKnox Community HospitalComment on above:Performed By: #### LIPID, CMP #### [facility] [address] [place] [address] Dr. Holly Lora.total/Cholesterol in HDL [Mass ratio]4.2 {ratio} NormalThe Uc HealthComment on above:Performed By: #### LIPID, CMP #### [facility] [address] [place] [address] Dr. Holly Rock NORMAL> or = 60 mg/dl - LOW CARDIOVASCULAR RISK <40 mg/dl - HIGH CARDIOVASCULAR RISKKnox Community HospitalComment on above:Performed By: #### LIPID, CMP #### [facility] [address] [place] [address] Dr. Holly Carson CALC NORMALSEE BELOWKnox Community HospitalComment on above:Result Comment: <100 mg/dl OPTIMAL 100 - 129 mg/dl NEAR OR ABOVE OPTIMAL 130 - 159 mg/dl BORDERLINE HIGH 160 - 189 mg/dl HIGH >190 mg/dl VERY HIGH Performed By: #### LIPID, CMP #### [facility] [address] [place] [address] Dr. Holly FisherTriglyceride [Mass/Vol]199 mg/dLCritically high<=150The [facility]c HealthComment on above:Performed By: #### LIPID, CMP #### [facility] [address] [place] [address] Dr. Holly FisherVLDL CALC39.8 mg/dLKnox Community HospitalComment on above: Performed By: #### LIPID, CMP #### [facility] [address] [place] [address] Dr. Holly FisherMG MAMM SCREEN 3D SHERRIE CADon 76-78-6271II MAMM SCREEN 3D SHERRIE CAD Patient: LETTY COFFEY Exam Date: 03/05/2022 : 1945 Gender:F Ordering : DR LUIS THOMAS M.D. Admission #: [id number] Family : Order #: [id number] CLICK HERE TO VIEW EXAM RADIOLOGY REPORT [...] Treatments None Family Cancers None LOCATION: [facility] BREAST COMPOSITION: Scattered areas fibroglandular density. FINDINGS: [...] by: Yousuf Ortiz MD on 03/05/2022 at 09:55Knox Community HospitalPROF 14(COMP METB)on 21-54-5059Ivmqcdi [Mass/Vol]3.9 g/dLNormal3.4-5.0The [facility] on above:Performed By: #### LIPID, CMP #### [facility] [address] [place] [address] Dr. Holly FisherAlbumin/Globulin [Mass ratio]1.1 {ratio}NormalThe [facility] on above:Performed By: #### LIPID, CMP #### [facility] [address] [place] [address] Dr. Holly Alonzo [Catalytic activity/Vol]54 U/CBuxdvb20-167Pdv [facility] on above:Performed By: #### LIPID, CMP #### [facility] [address] [place] [address] Dr. Holly Miller [Catalytic activity/Vol]22 U/JRkfxea21-77Bxr [facility] on above:Performed By: #### LIPID, CMP #### [facility] [address] [address] [address] Holly FisherAnion gap [Moles/Vol]12.5 mmol/LNormalWhite Hospital Comment on above:Performed By: #### LIPID, CMP #### [facility] [address] [address] [address] Holly FisherAST [Catalytic activity/Vol]14 U/LCritically uum60-45Qxq [facility]c HealthComment on above:Performed By: #### LIPID, CMP #### [facility] [address] [address] [address] Holly FisherBilirubin [Mass/Vol]0.4 mg/dLNormal0.2-1.0The [facility] Comment on above:Performed By: #### LIPID, CMP #### [facility] [address] [address] [address] Holly FisherCalcium [Mass/Vol]8.6 mg/dLNormal8.5-10.1[facility] Comment on above:Performed By: #### LIPID, CMP #### [facility] [address] [address] [address] Holly FisherChloride [Moles/Vol]106 mmol/RGuaksm73-290Vqh [facility] Comment on above:Performed By: #### LIPID, CMP #### [facility] [address] [address] [address] Holly FisherCO2 [Moles/Vol]26.8 mmol/HKqspoy14.0-32.0The [facility] Comment on above:Performed By: #### LIPID, CMP #### [facility] [address] [address] [address] Holly FisherCreatinine [Mass/Vol]0.60 mg/dLNormal0.55-1.02The [facility]c HealthComment on above:Performed By: #### LIPID, CMP #### [facility] [address] [address] [address] Holly AddisonGFR-AF SWAZI>60Normal>=60The [facility]c HealthComment on above:Performed By: #### LIPID, CMP #### [facility] [address] [address] [address] Holly AddisonGFR-NON AF SWAZI>60Normal>=60The [facility] HealthComment on above:Performed By: #### LIPID, CMP #### [facility] [address] [address] [address] Holly FisherGlobulin (S) [Mass/Vol]3.4 g/dLNormalThChildren's Hospital for RehabilitationComment on above:Performed By: #### LIPID, CMP #### [facility] [address] [address] [address] Holly FisherGlucose [Mass/Vol]98 mg/kWVkkuvk62-814Arj [facility] Comment on above:Performed By: #### LIPID, CMP #### [facility] [address] [address] [address] Holly FisherPotassium [Moles/Vol]4.3 mmol/LNormal3.5-5.1The [facility] Comment on above:Performed By: #### LIPID, CMP #### [facility] [address] [address] [address] Holly FisherProtein [Mass/Vol]7.3 g/dLNormal6.4-8.2The [facility] Comment on above:Performed By: #### LIPID, CMP #### [facility] [address] [address] [address] Holly FisherSodium [Moles/Vol]141 mmol/EAiwsua668-356Fwf [facility] Comment on above:Performed By: #### LIPID, CMP #### [facility] [address] [address] [address] Holly FisherUrea nitrogen [Mass/Vol]14.0 mg/dLNormal7.0-18.0The [facility]c HealthComment on above:Performed By: #### LIPID, CMP #### [facility] [address] [address] [address] Holly FisherUrea nitrogen/Creatinine [Mass ratio]23.3 mg/mgNormalThe [facility]c HealthComment on above:Performed By: #### LIPID, CMP #### [facility] [address] [place] [address] Dr. Holly FisherXR DEXA BONE DENSITYon 69-90-7254MA DEXA BONE DENSITYEXAMINATION: XR DEXA BONE DENSITY, 03/05/2022 7:58 AM [...] Electronically authenticated by: YOUSUF ORTIZ Date: 2022-03-05 10:00Kn[facility] HospitalHistory and Physicalon [id number] IP Note OR [employer] M[employer] [facility] CenterOPERATIVE REPORTon 57-26-8751NMOLPFEUM REPORTUNIVERSITY HOSPITALS PARMA MEDICAL CENTERPATIENT NAME: LETTY COFFEY : [birth year][facility] REC NO: [id number] ROOM:ACCOUNT NO: [id number] ADMISSION DATE: 04/27/17PHYSICIAN: EMRE STAPLETONDATE OF PROCEDURE: 04/27/2017PREOPERATIVEDIAGNOSES:1. Macular pucker, right eye.2. Pseudophakia, right eye.3. Retinal edema, right eye.POSTOPERATIVE DIAGNOSES:1. Macular pucker, right eye.2. Pseudophakia, right eye.3. Retinal edema, right eye.SURGEON: Dr. Emre Stapleton.ANESTHESIA: Local monitored anesthesia care.COMPLICATIONS: None.SURGERY PERFORMED:1. Pars plana vitrectomy.2. Membrane stripping and membranectomy.3. Partial fluid-airexchange, right eye.JUSTIFICATION: This is a very pleasant 71-year-old female who has ahistory of painless, progressive loss of vision in her right eye. Sheis pseudophakic with a macular pucker causing retinal edema anddistortion. The patient was apprised of the risks, benefits, andalternatives to surgery and signed the consent. She was taken to theoperating room where IV sedation was given and aretrobulbaranesthetic was provided with a 50:50 mixture of [...] ICG wasthen used to stain the periretinal m embrane. Two minutes were allowedto elapse and the ICG was removed from the eye completing theperipheral vitrectomy simultaneously. The patient then had retinalforceps used to engage the membrane in a dsfmz-gfd-eyer technique andthe membrane was elevated from the [...] having tolerated theprocedure well without complications.EMRE Llanes DABBSD :04/27/2017 9:59:31 CD/V_VGPRS_TJob#: [id number] Doc#: [id number]. [facility] Vital Signs Date TimeVital SignValuePerforming OzroabyvtAhgoidns72-48-8446 10:16Body .04 kgKathlterrance Velez DO Work Phone: NOBoone Hospital CenterNnklsgtbkg07-54-4726 10:16-0400Diastolic blood kuveswds02 mm[Hg]Kriss Velez DO Work Phone: noPA Xsfumwupjf56-84-4981 10:16-0400Systolic blood mm[Hg]Kriss Velez DO Work Phone: noPA Dqbzjjsvep49-76-7843 09:15-0400Body mhlndi807.75 cmLuis Thomas Other [employer] Other 533502-40-9839 09:15-0400Body mass index (BMI) [Ratio] 30.95 kg/b6KelzmhLuis Thomas Other [employer] Other 10-04-2023 09:15-0400Body vpswzagocbb90.5 [degF]Luis Thomas Other [employer] Other 224023-70-1238 09:15-0400Body duinqw38.02 kgLuis Thomas Other [employer] Other 10-04-2023 09:15-0400Diastolic blood bglkupgg34 mm[Hg] Luis Thomas Other [employer] Other 10-04-2023 09:15-0400Systolic blood mm[Hg] Luis Thomas Other [employer] Other 07-18-2023 15:00-0400Body .75 cmLuis Thomas Other [employer] Other 07-18-2023 15:00-0400Body mass index (BMI) [Ratio] 31.49 kg/g3RydyllLius Thomas Other [employer] Other 07-18-2023 15:00-0400Body efkdke36.38 kgCharlettebentley Thomas Other [employer] Other 07-18-2023 15:00-0400Diastolic blood ufdkwfkp64 mm[Hg] Luis Martha Other [employer] Other 07-18-2023 15:00-0400Systolic blood akjtabiz156 mm[Hg] Luis Martha Other [employer] Other 06-22-2023 08:40-0400Body eeuisu039.75 cmEj Martha Other [employer] Other 06-22-2023 08:40-0400Body mass index (BMI) [Ratio] 31.67 kg/m2Ej Thomas Other [employer] Other 06-22-2023 08:40-0400Body usbvsq42.83 kgDadenys Thomas Other [employer] Other 06-22-2023 08:40-0400Diastolic blood exnszkbw60 mm[Hg] Ej Martha Other [employer] Other 06-22-2023 08:40-0400Systolic blood fzdrmjgi692 mm[Hg] Ej Martha Other [employer] Other 04-27-2023 11:00-0400Body rmktyq689.75 cmShainasam Martha Other [employer] Other 04-27-2023 11:00-0400Body mass index (BMI) [Ratio] 32.21 kg/c7Qwrssu Martha Other [employer] Other 04-27-2023 11:00-0400Body mvbipr27.19 kgShainasam Thomas Other [facility] [employer] Other 04-27-2023 11:00-0400Diastolic blood dfyuxkhp18 mm[Hg] Luis Martha Other [facility] [employer] Other 04-27-2023 11:00-3212VyJ9% (BldA) [Mass fraction]97 % Luiskriss Thomas Other [facility] [employer] Other 04-27-2023 11:00-0400Systolic blood ewkoizqr731 mm[Hg] Luis Martha Other [facility] [employer] Other Encounters Encounter DateEncounter TypeCare ProviderFacilityStart: 08-08-2025 End: 12-70-5795Twylzt flowsheetJonathan D Zahler DO Work Phone: [facility] EyeStart: 08-08-2025 End: 32-49-7915Oysfrp flowsheetJonathan D Zahler DO Work Phone: noms [facility] EyeStart: 08-08-2025 End: 25-29-1342flzlafzfkpMYQWCEPY D LARRYHLERNOMS HealthcareComment on above: Macular Degeneration; Retinal InjectionStart: 07-04-2025 End: 06-68-8979Czbmrp flowsheetJonathan D Zahler DO Work Phone: [facility]oms [facility] EyeStart: 07-04-2025 End: 10-02-7032Isizxh flowsheetJonathan D Zahler DO Work Phone: noms [facility] EyeStart: 07-04-2025 End: 06-00-5615Uykeodui SupportJonathan D Zahler DO Work Phone: noms [facility] EyeComment on above:Macular Degeneration; Retinal InjectionStart: 06-11-2025 End: 04-09-1751wromxgfueqOcevtlm Yo Kelley MDFacility:PM [facility] Start: 05-30-2025 End: 10-99-3697Cfpzmk flowsheetDusty Ortizer DO Work Phone: NOEA [facility] EyeStart: 05-30-2025 End: 10-71-2396Qdbnox flowsheetDusty Simshler DO Work Phone: noms [facility] EyeStart: 05-30-2025 End: 37-20-6827Hudtgy-up encounterDusty Ortizer DO Work Phone: noms [facility] EyeComment on above:Follow-up; Retinal InjectionStart: 05-30-2025 End: 12-05-5054lsiszbjhsnIANFROOE D ZAHLERNot AvailableStart: 05-24-2025 End: 20-94-0757Rbjszf flowsheetKathleen E Rinkes DO Work Phone: noms [facility]YNStart: 05-24-2025 End: 84-05-1705Uzzlri flowsheetKathleen E Rinkes DO Work Phone: noms [facility]BGYNStart: 05-24-2025 End: 15-84-0318Hvldri outpatient visit 25 minutesKathleen E Rinkes DO Work Phone: noms [facility] OBGYNComment on above:Vaginal atrophy (Primary Dx); Encounter for screening mammogram for breast cancer; Cystocele, midlineStart: 05-24-2025 End: 76-81-4974zbvqltubypOIPKXKQX E RINKESNot AvailableStart: 05-23-2025 End: 69-30-4965Ulcrxr flowsRobert Ortizer DO Work Phone: noms [facility] EyeStart: 05-23-2025 End: 21-01-4224Kmuxif flowsheetDusty Simshler DO Work Phone: noms [facility] EyeStart: 05-23-2025 End: 46-06-0460Bkqitkwt SupportJonathan D Zahler DO Work Phone: NOMS [facility] EyeComment on above:Retinal Injection; Macular DegenerationStart: 04-18-2025 End: 83-83-4880Ellbzv flowsheetJonathan D Zahler DO Work Phone: NOMS NB OPHTStart: 04-18-2025 End: 80-17-7474Vpnqzq flowsheetJonathan D Zahler DO Work Phone: NOMS NB OPHTStart: 04-18-2025 End: 14-76-9056Iviqytuh SupportJonathan D Zahler DO Work Phone: NOMS NB OPHTComment on above:Retinal Injection; Macular DegenerationStart: 03-07-2025 End: 18-95-9508Khkqjt flowsheetJonathan D Zahler DO Work Phone: NOM[facility] NB OPHTStart: 03-07-2025 End: 19-55-8119Fdmoap flowsheetJonathan D Zahler DO Work Phone: NOM[facility] NB OPHTStart: 03-07-2025 End: 07-33-1715Qensuu-up encounterJonathan D Zahler DO Work Phone: NOMS NB OPHTComment on above:Follow-up; Macular DegenerationStart: 03-07-2025 End: 45-97-6787edosorlvrkPECHIZEX D ANGELERNot AvailableStart: 02-28-2025 End: 02-60-3230Hicreu flowsheetJonathan D Zahler DO Work Phone: NOM[facility] NB OPHTStart: 02-28-2025 End: 84-13-4825Sgeagy flowsheetJonathan D Zahler DO Work Phone: NOM[facility] NB OPHTStart: 02-28-2025 End: 92-57-1581Rhxtpusi SupportJonathan D Zahler DO Work Phone: NOMS NB OPHTComment on above:Retinal InjectionStart: 02-26-2025 End: 63-21-9073oljvdwqvjpBtweofm Vytautas Giedraitis MDFacility:[facility] Start: 01-29-2025 End: 72-58-6902rxxyqkirncYloorom Vytautas Giedraitis MDFacility:[facility] Start: 01-15-2025 End: 10-14-2741qtiysiehzbIgebvtf Vytautas Giedraitis MDFacility:PM [place] Start: 12-06-2024 End: 22-40-0872puucxepnqrIJIOJEOU D ZAHLERNot AvailableStart: 10-02-2024 End: 66-84-1165yxfpmbkzfuUqyoneh Vytautas Giedraitis MDFacility:[facility] Start: 09-26-2024 End: 12-93-8215Awrkag flowsheetDusty Aguilar Corewor[employer]er DO Work Phone: NOMS NB OPHTStart: 09-26-2024 End: 10-59-9325Iinrxa flowsheetDusty Aguilar Zahler DO Work Phone: NOMS NB OPHTStart: 09-26-2024 End: 65-66-3625Tnsleo-up encounterJociaran Simshler DO Work Phone: NOMS NB OPHTComment on above:Follow-up; Retinal Injection; Macular DegenerationStart: 09-26-2024 End: 08-16-7339ylppckbzxfHDQSPVRU D ZAHLERNot AvailableStart: 09-25-2024 End: 76-96-5036hktdawppjrLmcszzb Vytautas Giedraitis MDFacility:PM [place] Start: 09-18-2024 End: 12-70-3664ylwmoehkydIgiblcu Vytautas Giedraitis MDFacility:PM [place] Start: 09-11-2024 End: 33-22-3172aovzynvwapCdplfzr Vytautas Giedraitis MDFacility:PM [place] Start: 08-21-2024 End: 44-47-3091npushwrzufLxmvmkn Vytautas Giedraitis MDFacility:[facility] Start: 07-25-2024 End: 98-88-0987Cmrflp flowsheetMariahkeeshamarj Lauren Maday DO Work Phone: noms NB OPHTStart: 07-25-2024 End: 80-57-4312Wykatz flowsheetMariahkeeshamarj Lauren Maday DO Work Phone: noms NB OPHTStart: 07-25-2024 End: 31-94-3392Tlriicqs SupportJonatmarj Lauren Maday DO Work Phone: noms NB OPHTComment on above:Macular Degeneration; Retinal InjectionStart: 05-30-2024 End: 89-35-2693Hzsusl flowsheetMariahkeeshamarj Lauren Maday DO Work Phone: noms OPHTStart: 05-30-2024 End: 13-79-3524Qpumxz flowsheetDusty Lauren Maday DO Work Phone: noms OPHTStart: 06-30-2023 End: 82-87-2884vlrxloxszkYjwlzz Braun Other [employer] Other Start: 46-84-1549Iflygx outpatient visit 15 minutes Luis ThomasCleveland Clinic Hillcrest Hospitaltart: 05-18-2023 End: 76-04-4596lfstpryiqvAkrlyq Braun Other [employer] Other Start: 66-71-7776Bpumhfjsl encounterLuis ThomasCleveland Clinic Hillcrest Hospitaltart: 05-13-2023 End: 58-50-7629weoevvhcgjGVBUBLG [facility] Hospitaltart: 05-13-2023 End: 38-05-7760zunffwywivWLYSEGA [facility] Hospitaltart: 04-16-2023 End: 06-30-5046euwyqdqqkqJOVGHFU [facility] Hospitaltart: 04-13-2023 End: 18-33-6799xugltwphizWszqdk Thomas Other [employer] Other Start: 57-56-7511Toqtgu outpatient visit [address]: 04-05-2023 End: 74-19-7275ltqafbalkfRoym Thomas Other [employer] Other start: 79-15-9869Cdhtyftjf encounterDadenys ThomasCleveland Clinic Hillcrest Hospitaltart: 03-18-2023 End: 11-23-6923sijbpefelkPahu Thomas Other [facility] [employer] Other start: 88-72-5967Jiccnr outpatient new 30 minutesDadenys [facility] NeurosurgeryStart: 02-09-2023 End: 46-75-2417iuytuwtwsiWGILDRFXPCPC LAKSHMIPATHY .Facility:W8Yfrsf: 02-01-2023 ambulatoryNARENDRANATH LAKSHMIPATHY .Facility:T6Dlauw: 99-49-1249kghpkpzyonCB LUIS E BRAUNFacility:Z3Ebnea: 01-28-2023 End: 52-56-1750haheseyzseTMCTSWACONVB LAKSHMIPATHY .Facility:F2Rgtxz: 01-21-2023 End: 66-75-9258tmewhwlzlcGnhnrw Thomas Other [facility] [employer] Other Start: 49-46-9768Ftbfif outpatient visit 15 minutes Luis ThomasAnita [facility] ClinicStart: 01-12-2023 End: 34-60-5933gpjeuikcblBTKPHIFVLDWY LAKSHMIPATHY .Facility:A1Jqaay: 12-31-2022 End: 47-98-7852sxnvyqsjoeVG LUIS Rosita BRAUNFacility:H9Lmyoe: 12-28-2022 End: 83-02-0048dltxwmqdhpIY LUIS Rosita THOMASFacility:V5Axlyx: 12-24-2022 End: 22-55-9387tpgkesnxpmVK LUIS E BRAUNFacility:A9Ntcvw: 10-07-2022 End: 27-20-7440qrjlhwfkfsHIYM RUIZ .Facility:X6Bhkat: 26-59-5179Dbfdmftis for preprocedural laboratory examinationDR YULI S LEES .[facility] Start: 09-01-2022 End: 99-01-3168ttgbeslareJO YULI S LEES .Facility:Y4Lnnny: 08-28-2022 End: 54-69-2892claskpcvigTJ LUIS E BRAUNFacility:R9Oncuf: 08-28-2022 End: 44-08-7437Qpsirofij for preprocedural laboratory examinationDR LUIS E BRAUNFacility:T3Kotlp: 08-11-2022 End: 26-74-7868mqgoyresqmBZ YULI S LEES .Facility:T8Wkfys: 82-53-1496Idkwplegp for preprocedural cardiovascular examinationJILL RUIZ .[facility] Start: 08-07-2022 End: 83-27-6310mahqbyscsuLZ LUIS E BRAUNFacility:L7Thpfv: 08-03-2022 End: 00-77-3698umpjjdefmyPAEM RUIZ .Facility:Z3Uyvbf: 08-03-2022 End: 35-89-4909Zvshlyfuh for preprocedural cardiovascular examinationJILL RUIZ .Facility:O3Hoktd: 07-30-2022 End: 27-50-2840bymgfcjrfyGQ YULI S LEES .Facility:S6Sftwv: 06-30-2022 End: 64-45-8219hlxkfcmgquCA YULI S LEES .Facility:S3Hajsz: 06-26-2022 End: 32-35-4184blaherivisUJ LUIS E BRAUNFacility:P4Cehxp: 06-25-2022 End: 17-37-6352bdbkirjsabLPEX RUIZ .Facility:O0Fnmmd: 06-12-2022 End: 59-21-6458dnfpucultoRY LUIS E BRAUNFacility:D9Pxvoq: 06-09-2022 End: 69-12-2171mqzcisakwkAU YULI S LEES .Facility:S2Wtnpo: 05-19-2022 End: 31-14-4840wrymafpgbfMB YULI S LEES .Facility:S2Avrvs: 05-01-2022 End: 34-65-1701dnmaylmemeVP YULI LEES .Facility:B5Gsbat: 04-28-2022 End: 39-11-2438ebypvefelfEM YULI LEES .Facility:I7Vheqy: 03-05-2022 End: 51-07-2438zuzeiiaifbSX YOUSUF Ferguson WESTcility:U1Cenne: 04-27-2017 End: 64-44-6862KfxsynqxibBUEMPIPDavid Landa [facility] Procedures DateProcedureProcedure DetailPerforming ClinicianStart: 97-76-5496Gefjszdgwedx njx pharmacologic agt spxJonathan D Zahler DO Work Phone: Start: 31-44-4185Bwhkqukkjgam ophthalmic imaging retinaJonathan D Zahler DO Work Phone: Start: 43-99-3738Zmmmvgjvhnhg njx pharmacologic agt spxJonathan D Zahler DO Work Phone: Start: 03-35-8155Mpsqswjyieug ophthalmic imaging retinaJonathan D Zahler DO Work Phone: Start: 57-03-6564Zqccqiobyjpg njx pharmacologic agt spxJonathan D Zahler DO Work Phone: Start: 86-04-0249Bpaftaigczwo njx pharmacologic agt spxJonathan D Zahler DO Work Phone: Start: 25-58-3412Uorurcurhmoj ophthalmic imaging retinaJonathan D Zahler DO Work Phone: Start: 41-90-5693Poiuwkteofjd njx pharmacologic agt spxJonathan D Zahler DO Work Phone: Start: 98-64-6557Lufizcthxapz ophthalmic imaging retinaJonathan D Zahler DO Work Phone: Start: 77-45-1998Ubqdyoiobxet njx pharmacologic agt spxJonathan D Zahler DO Work Phone: Start: 99-89-7941Eouolxbrurja njx pharmacologic agt spxJonathan D Larryhler DO Work Phone: Start: 04-26-0491Eraswtvzsujo ophthalmic imaging retinaJociaran D Angeler DO Work Phone: Start: 78-16-7134Dlnpbzexvtdb njx pharmacologic agt spxJonathan D Larryhler DO Work Phone: Start: 39-73-7894Nnsflwvhqnpy ophthalmic imaging retinaDusty D Angeler DO Work Phone: Start: 56-48-1852Esinhcebniwc njx pharmacologic agt spxJociaran D Angeler DO Work Phone: Start: 05-40-7209Qgxqjzhplkqt ophthalmic imaging retinaJociaran Ortizer DO Work Phone: Start: 40-28-3509Xcyqlyrewfkz njx pharmacologic agt spxJociaran D Angeler DO Work Phone: Start: 51-08-0269Vetmegyvkrso ophthalmic imaging retinaJonatmarj D Angeler DO Work Phone: Start: 05-30-2024 End: 17-97-8598Myqwc medical xm&eval comprhnsv estab pt 1/>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 eye with active choroidal neovascularization (HCC) (CMS/HCC)Dusty Ortizer DO Work Phone: comment on above:Follow-upStart: 11-47-8525KGFIFYGKF PATIENTCHARLES DABBSStart: 35-39-9307UVKMTLBAZVHYKH DABBSStart: 04-27-2017 Continuous pulse oximetryCHARALIZA DABBSStart: 35-71-5119VMYJPNCZG DEEP BREATHING AND COUGHINGCHARLES DABBSStart: 54-49-6714XCFVYT PHYSICIAN (SPECIFY)EMRE DABBSStart: 91-83-4437HNBKWMY COMMUNICATIONCHARLES DABBSStart: 87-93-2788NXGLLTA OXYGEN ORDERS/INSTRUCTIONSCHARLES DABBSStart: 26-22-7977DNZKY SIGNSCHARLES DABBSManagement of drug regimenMarcia Martha Other Screening for malignant neoplasm of colonMarcia Thomas Other Plan of Treatment DateCare ActivityDetailAuthorStart: 06-05-2026 End: 05-07-4660Ruryhmj encounter rqwhktuet76/09/2026 10:15 AM EDT Office Visit JUAN MPatrick Bert GARCIA [address] [place] [address] Kriss Velez DO [address] [place] [address] JUAN MPatrick Noel OBGYNStart: 08-08-2025 End: 98-34-5548Iuekqtyh Vugruej2808/08/2025 9:30 AM EST Clinical Support [facility] [address] [place], [id number] Dusty Nassar DO [address] [place] [address] [facility] EyeComment on above:Arrived Start: 07-04-2025 End: 18-77-1905Vqocblvo Iqlbihq6007/04/2025 11:15 AM EDT Clinical Support [facility] [address] [place] [id number] Dusty Nassar DO [address] [place] [address] [facility]rivedSing[facility] EyeComment on above:Arrived Start: 05-30-2025 End: 03-55-3499Tkulcqys SupportNOH. [facility]. [facility] EyeComment on above:Arrived Start: 72-94-0242GMJUB-19 Vaccine ( season)COVID-19 Vaccine ( season)[facility] HealthcareStart: 07-65-1960Qfccelucc vaccinationInfluenza Vaccine (#1)[facility] HealthcareStart: 05-24-2025 End: 28-67-6796Asyoypf encounter procedureNOMS [facility] OBComment on above:Vaginal atrophy; Encounter for screening mammogram for breast cancerStart: 05-23-2025 End: 96-42-4886Gjqetste Vbsrlis0205/23/2025 8:30 AM EDT Clinical Support [facility] [address] [place], [id number] Dusty Nassar, [address] [place] [address] [facility] EyeComment on above:Arrived Start: 04-18-2025 End: 35-39-0035Twqrgohf Bbehgmo2104/18/2025 8:30 AM EDT Clinical Support [facility] [address] [place] [address] Dusty Nassar, [address] [place] [address] ArrivedNOMS NB OPHTComment on above:ArrivedStart: 03-07-2025 End: 71-56-9538Gggvsjsk SupportNOMS NB OPHTComment on above:ArrivedStart: 02-28-2025 End: 86-64-0956Wggfunrd Tbrkmgl3402/28/2025 9:15 AM EDT Clinical Support [facility] [address] [place] [address] Dusty Nassar DO [address] [place] [address] ArrivedNOMS NB OPHTComment on above:ArrivedStart: 09-26-2024 End: 41-77-7711Vxepdggi Vnltooj0509/26/2024 9:00 AM EST Clinical Support [facility] [address] [place] [address] Dusty Nassar DO [address] [place] [address] [facility]AM[facility] OPHTComment on above:ArrivedStart: 07-25-2024 End: 22-12-4669Lfoljhiz Cicagrp5907/25/2024 1:45 PM EDT Clinical Support [facility] [address] [place] [address] Dusty Nassar DO [address] [place] [address] [facility]rivedAMER[facility] OPHTComment on above:ArrivedStart: 05-30-2024 End: 21-22-5982Inikepur Swbcdey1105/30/2024 9:45 AM EDT Clinical Support [facility] [address] [place] [address] Dusty Nassar DO [address] [place] [address] [facility]rivedAMER[facility] OPHTComment on above:ArrivedStart: 05-28-2024 Influenza vaccinationInfluenza Vaccine (#1)[facility] HealthcareStart: 02-26-2023 ambulatoryAmbulatoryFacility:H1DBT Breast - bilateral screeningBilateral screening mammogram with tomosynthesis Imaging Routine Encounter for screening mammogram for breast cancer Ordered: 05/24/2025[facility] Work Phone: comment on above:Ordered: 05/24/2025Intravitreal Injection, Pharmacologic Agent - OD - Right EyeIntravitreal Injection, Pharmacologic Agent - OD - Right Eye Ophthalmology Routine 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 eye with active choroidal neovascularization (HCC) (CMS/HCC) Ordered: 07/25/2024[facility] Work Phone: comment on above:Ordered: 07/25/2024Intravitreal Injection, Pharmacologic Agent - OD - Right EyeIntravitreal Injection, Pharmacologic Agent - OD - Right Eye Ophthalmology Routine 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 eye with active choroidal neovascularization (HCC) (CMS/HCC) Ordered: 05/30/2024[facility] Work Phone: comment on above:Ordered: 05/30/2024 Immunizations Immunization DateImmunizationNotesCare GyupkcuhTlmylili96-78-9781bifdxnrns virus vaccine, unspecified formulationJonathan Zahler DO Work Phone: [facility] DivisionIjaqcvqzvx61-60-6257nsooorzsy virus vaccine, unspecified formulationJonathan Zahler DO Work Phone: [facility] Payers DatePayer CategoryPayerPolicy [id number] Health InsuranceMEDICAL MUTUAL [id number] 04-22-0728[facility] Member Subscriber Plan / Payer (Effective 2018-Present) Name: Letty Coffey Relation to Subscriber: Self Name: Letty Coffey PayerID: Not on file Group ID: [id number] Type: Not on file Address: [address] [place] [id number] 17-76-1160Aieiafy2.2.840.001344.1.13.693.2.7.3.638657.315 2017Medicare [id number]75.590[id number] 29-52-0169TshvCarrie Tingley [id number] 2.840.9.124364.5625-01-1960 [id number] 2.0.6.818234.96705512-79-3958ChenuuoSAI362H9213348-21-1947 [id number] 2.840.1.309633.3.57[id number] 2.16840.1.117764.3.57[id number] 2.16840.1.600671.3.579.2.58391-47-2979Dtyxzfn0915976 2.16840.1.257670.3.579.2.95100-94-2332Ishpsjn8358022 2.16840.1.221162.3.579.2.47784-36-8469Baplpyv7284817 2.16.840.1.937647.3.579.2.21170-75-1638Czzmnnw5480810 2.16.840.1.737367.3.579.2.14231-99-8815Fkjcwpc0485097 2.16.840.1.611165.3.579.2.49146-76-4179Nxrlnpt0538961 2.16840.1.151472.3.579.2.04079-47-7613Skjqdxo5278748 2.16.840.1.295204.3.579.2.67502-55-9594Zgxydxm3904728 2.16.840.1.819554.3.579.2.57606-68-4363Uglcahu8106838 2.16.840.1.133708.3.579.2.52368-92-3721Dggdakr4486490 2.16.840.1.627836.3.579.2.05138-30-7007Iywyowd9051811 2.16.840.1.393548.3.579.2.36655-53-4490Sruykoa0894545 2.16.840.1.942319.3.579.2.13417-73-1880Zpslcmn9184292 2.16.840.1.600695.3.579.2.74405-30-0872Hbzqdrs2525729 2.16.840.1.608132.3.579.2.09019-44-7606Mascvxo2181805 2.16.840.1.468559.3.579.2.63667-19-6615Pouwyby8645858 2.16.840.1.365590.3.579.2.88367-72-4563Vdfsrrh9687435 2.16.840.1.243768.3.579.2.57339-44-7659Bjntvxj1938492 2.16.840.1.742193.3.579.2.52637-00-7194Auzzuyh9673868 2.16.840.1.971491.3.579.2.15036-88-5134Kpochkf1493681 2.16.840.1.367779.3.579.2.50230-05-2678Lmfohab9602809 2.16.840.1.841357.3.579.2.07601-17-5812Wfkrqlb6395019 2.16.840.1.854203.3.579.2.03050-48-9938Hwurbcv966592576 2.16.840.1.360916.3.579.2.36912-94-6873Iyyqeoo631045649 2.16.840.1.907793.3.579.2.13827-79-2539Pcdrjxq505255602 2.16.840.1.765568.3.579.2.56573-48-5368Rnluieh143460936 2.16.840.1.681692.3.579.2.22225-67-7227Fuwbpcq512112240 2..840.1.406525.3.579.2.15951-47-4630Nxuhncm360890234 2.16.840.1.379846.3.579.2.50292-78-8366Lqczurl008918054 2.16.840.1.509556.3.579.2.01668-06-3073Qszoayx010346701 2.16.840.1.102351.3.579.2.43920-17-2066Gnfnjfv843222100 2.16.840.1.870408.3.579.2.75773-17-5262Xbkxetw75820497 2.16.840.1.702885.3.579.2.895379-09-7709Xujyagp05213148 2.16.840.1.822905.3.579.2.682634-18-9886Fcnyogq55405302 2.16.840.1.459326.3.579.2.427178-04-4110Ekcrvgq00803009 2.16.840.1.892353.3.579.2.904067-58-8785Dtjbxhj07867581 2.16.840.1.340726.3.579.2.871516-38-0490Zjafxxy92308391 2.16.840.1.623431.3.579.2.830513-95-5377Mqmhwiw74952893 2.16.840.1.552878.3.579.2.254764-26-5854Bieqrly64284522 2.16.840.1.293397.3.579.2.368101-39-3359Bqyrnfm2165015 2.16.840.1.215639.3.579.2.453819-77-2110Cqxbjfp8792316 2..840.1.870504.3.579.2.1259 Social History DateTypeDetailFacilityUnknown if ever smokedRancho Cucamonga [facility] Other Start: 05-30-2024 End: 58-43-8195Ewh Assigned At [facility] Other Start: 18-87-0385Braefsx smoking status NHISNever smoked tobaccoLAKEVIEW HOSPITAL HealthcareStart: 05-72-0171Begwtuc use and exposureSmokeless tobacco non-userNOPA HealthcareStart: 05-30-2024 End: 49-19-1787Upjrbuf of Social functionNOPA HealthcareStart: 57-78-0915Jok assigned at birthNot on [facility] HealthcareStart: 27-46-6900SgqRfbylkEZTP Healthcare Clinical Notes 03-05-2022 to 08-08-2025 Note Date & DvtxZjcgQvvyyuxc40-70-8576 NoteTime Out 08/08/2025. 10:08 AM. Confirmed correct patient, procedure, site, and patient consented. Anesthesia Topical anesthesia was used. Anesthetic medications included Lidocaine 2%, Proparacaine 0.5%. Procedure Preparation included 5% betadine to ocular surface, eyelid speculum. Injection: 2 mg aflibercept 2 MG/0.05ML Route: Intravitreal, Site: Left Eye [facility]: 97123-061-75, Lot: [id number], Expiration date: 08/27/2026, Waste: 0 mL Post-op Post injection exam [...] with increased pain, redness, decreased vision or concerns.[facility]Vupwdvyoet79-02-1427 NoteRight Eye Quality was good. Scan locations included subfoveal. Progression has been stable. Findings include abnormal foveal contour, epiretinal membrane, intraretinal fluid, pigment epithelial detachment. Left Eye Quality was good. Scan locations included subfoveal. Progression has been stable. Findings include normal observations. Notes Good scan with normal appearanceHCA [facility] DivisionFkusbtyixq86-85-0308 History of Present illness Narrative* Dusty Nassar, - 08/08/2025 9:30 AM EST Images from the original note were not [...] observations. Notes Good scan with normal appearance Linked Images Intravitreal Injection, Pharmacologic Agent - OS - Left Eye Time Out 08/08/2025. 10:08 AM. Confirmed correct patient, procedure, site, and patient consented. Anesthesia Topical anesthesia was used. Anesthetic medications included Lidocaine 2%, Proparacaine 0.5%. Procedure Preparation included 5% betadine to ocular surface, eyelid speculum. Injection: 2 mg aflibercept 2 MG/0.05ML Route: Intravitreal, Site: Left Eye [facility]: 44914-117-42, Lot: [id number], Expiration date: 08/27/2026, Waste: 0 mL Post-op Post injection exam [...] decreased vision or concerns. documented in this encounterHCA Midwest DivisionZgulppsmie40-49-8328 NoteTime Out 07/04/2025. 11:56 AM. Confirmed correct patient, procedure, site, and patient consented. Anesthesia Topical anesthesia was used. Anesthetic medications included Lidocaine 2%, Proparacaine 0.5%. Procedure Preparation included 5% betadine to ocular surface, eyelid speculum. A 30 gauge needle was used. Injection: 2 mg aflibercept 2 MG/0.05ML Route: Intravitreal, Site: Right Eye ND: 75322-446-12, Lot: [id number], Expiration date: 06/27/2026, Waste: 0 mL Post-op [...] increased pain, redness, decreased vision or concerns. [facility] DivisionVfsvbzkqtb27-03-3287 NoteRight Eye Quality was good. Scan locations included subfoveal. Progression has been stable. Findings include abnormal foveal contour, epiretinal membrane, pigment epithelial detachment. Left Eye Quality was good. Scan locations included subfoveal. Progression has been stable. Findings include normal observations. Notes Good scan with normal appearanceHCA Midwest DivisionGiknqifflo05-31-8300 History of Present illness Narrative* Dusty Nassar, DO - 07/04/2025 11:15 AM EDT Images from the original note were not included. Assessment/Plan Diagnoses and all orders for this visit: Exudative age-related macular 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 (HCC) - OCT, Retina - OU - Both Eyes - Intravitreal Injection, Pharmacologic Agent - OD - Right Eye - aflibercept (Eylea) syringe 2 mg - Will extend to 6wk interval right eye (OD) and 12 wk interval left eye (OS). OCT, Retina - OU - Both Eyes Right Eye Quality was good. Scan locations included subfoveal. Progression has been stable. Findings include abnormal foveal contour, epiretinal membrane, pigment epithelial detachment. Left Eye Quality was good. Scan locations included subfoveal. Progression has been stable. Findings include normal observations. Notes Good scan with normal appearance Linked Images Intravitreal Injection, Pharmacologic Agent - OD - Right Eye Time Out 07/04/2025. 11:56 AM. Confirmed correct patient, procedure, site, and patient consented. Anesthesia Topical anesthesia was used. Anesthetic medications included Lidocaine 2%, Proparacaine 0.5%. Procedure Preparation included 5% betadine to ocular surface, eyelid speculum. A 30 gauge needle was used. Injection: 2 mg aflibercept 2 MG/0.05ML Route: Intravitreal, Site: Right Eye [facility]: 44176-786-44, Lot: [id number], Expiration date: 06/27/2026, Waste: 0 mL Post-op [...] decreased vision or concerns. documented in this encounterHCA Midwest DivisionGpdqqvmgqn08-45-1517 NoteTime Out 05/30/2025. 9:12 AM. Confirmed correct patient, procedure, site, and patient consented. Anesthesia Topical anesthesia was used. Anesthetic medications included Lidocaine 2%, Proparacaine 0.5%. Procedure Preparation included 5% betadine to ocular surface, eyelid speculum. A 30 gauge needle was used. Injection: 2 mg aflibercept 2 MG/0.05ML Route: Intravitreal, Site: Right Eye [facility]: 81515-865-32, Lot: [id number], Expiration date: 06/27/2026, Waste: 0 mL Post-op [...] increased pain, redness, decreased vision or concerns. [facility] DivisionNcevsohpne45-20-3577 History of Present illness Narrative* Dusty Nassar, DO - 05/30/2025 8:45 AM EDT Images [...] 2 MG/0.05ML Route: Intravitreal, Site: Right Eye [facility]: 61889-484-68, Lot: [id number], Expiration date: 06/27/2026, Waste: 0 mL Post-op [...] decreased vision or concerns. documented in this encounterHCA Midwest DivisionFatnlhvovn94-64-7978 History of Present illness Narrative* Kriss Velez DO - 05/24/2025 10:00 AM [...] smear 05/10/24 wnl Mammogram 08/11/24 wn @ [facility] Systems - General: [...] Review Audit Reviewed by Elizabeth Santiago MA ([place]) on 05/24/25 at 1015 Medication Order Taking? Sig Documenting Provider Last Dose Status aspirin 81 MG EC tablet [id number] 1 (one) time each day at the same time Dusty Nassar, DO Active baclofen (Lioresal) 10 MG tablet [id number] every 12 (twelve) hours Dusty Nassar, DO Active calcium carbonate (Super Calcium) 1500 (600 Ca) MG tablet [id number] 1 tablet with meals Orally Once Dusty Nassar DO Active cefdinir (Omnicef) 300 MG capsule [id number] Take 300 mg by mouth in the morning and 300 mg before bedtime. Dusty Nassar, DO Active cholecalciferol (Vitamin D3) 25 MCG (1000 UT) tablet [id number] 1 (one) time each day at the same time Dusty Nassar, DO Active denosumab (Prolia) 60 MG/ML solution prefilled syringe [id number] as directed Subcutaneous Dusty Merida, DO Active Lerpqhqcnxq-Qxwsnjcrnty-CGK (Lobtya-Oehlk-JZY-Double Str) 500-400-167 MG tablet [id number] every 12 (twelve) hours Dusty Nassar DO Active losartan (Cozaar) 25 MG tablet [id number] Oral for 90 Days Dusty Nassar DO Active Magnesium Glycinate 100 MG capsule [id number] 2 capsules 1 (one) time each day at the same time Dusty Nassar DO Active Menaquinone-7 (Vitamin K2) 100 MCG capsule [id number] as directed Orally Dusty Nassar DO Active Multiple Vitamins-Minerals (PreserVision AREDS 2) capsule [id number] 1 (one) time each day at the same time Dusty Nassar DO Active Multiple Vitamins-Minerals (Womens 50+ Multi Vitamin) tablet [id number] as directed Orally Dusty Merida DO Active niacin 500 MG tablet [id number] 1 (one) time each day at the same time Dusty Nassar DO Active [place]-3 Fatty Acids (Fish Oil) 1200 MG capsule delayed-release [id number] 1 capsule every 12 (twelve)hours Dusty Nassar DO Active traMADol (Ultram) 50 MG tablet [id number] TAKE 1 TABLET BY MOUTH TWICE A DAY NEEDED FOR PAIN MUST LAST 30 DAYS Dusty Nassar DO Active zonisamide (Zonegran) 50 MG capsule [id number] TAKE 3 CAPSULES BY MOUTH EVERY DAY [...] 3. Cystocele, midline N81.11 documented in this encounterHCA Midwest DivisionGppaicmjbu53-90-9952 NoteTime Out 05/23/2025. 9:11 AM. Confirmed correct patient, procedure, site, and patient consented. Anesthesia Topical anesthesia was used. Anesthetic medications included Lidocaine 2%, Proparacaine 0.5%. Procedure Preparation included 5% betadine to ocular surface, eyelid speculum. Injection: 2 mg aflibercept 2 MG/0.05ML Route: Intravitreal, Site: Left Eye [facility]: 28893-100-65, Lot: [id number], Expiration date: 06/27/2026, Waste: 0 mL Post-op [...] with increased pain, redness, decreased vision or concerns.[facility] DivisionNyftiilntc78-13-5991 NoteRight Eye Quality was good. Scan locations included subfoveal. Progression has improved. Findings include abnormal foveal contour, epiretinal membrane, pigment epithelial detachment. Left Eye Quality was good. Scan locations included subfoveal. Progression has been stable. Findings include normal observations. Notes Good scan with normal appearance left eye (OS)[facility] DivisionAvodsevogs05-52-9951 History of Present illness Narrative* Dusty Nassar, DO - 05/23/2025 8:30 AM EDT Images [...] MG/0.05ML Route: Intravitreal, Site: Left Eye ND: 64310-390-90, Lot: [id number], Expiration date: 06/27/2026, Waste: 0 mL Post-op [...] decreased vision or concerns. documented in this encounterHCA Midwest DivisionInbwtpcpxx50-33-0985 NoteTime Out 04/18/2025. 8:54 AM. Confirmed correct patient, procedure, site, and patient consented. Anesthesia Topical anesthesia was used. Anesthetic medications included Lidocaine 2%, Proparacaine 0.5%. Procedure Preparation included 5% betadine to ocular surface, eyelid speculum. A 30 gauge needle was used. Injection: 2 mg aflibercept 2 MG/0.05ML Route: Intravitreal, Site: Right Eye [facility]: 67471-296-63, Lot: [id number], Expiration date: 06/27/2025, Waste: 0 mL Post-op [...] increased pain, redness, decreased vision or concerns. [facility] DivisionKhwshqbueb80-10-5409 NoteRight Eye Quality was good. Scan locations included subfoveal. Progression has been stable. Findings include abnormal foveal contour, epiretinal membrane, pigment epithelial detachment. Left Eye Quality was good. Scan locations included subfoveal. Progression has been stable. Findings include abnormal foveal contour.[facility] DivisionVyrzelgjjf42-28-1170 History of Present illness Narrative* Dusty Nassar, DO - 04/18/2025 8:30 AM EDT Images from the original [...] 2 MG/0.05ML Route: Intravitreal, Site: Right Eye [facility]: 25193-061-07, Lot: [id number], Expiration date: 06/27/2025, Waste: 0 mL Post-op [...] decreased vision or concerns. documented in this encounterHCA Midwest DivisionSonwksjcuk57-01-1886 NoteTime Out 03/07/2025. 1:19 PM. Confirmed correct patient, procedure, site, and patient consented. Anesthesia Topical anesthesia was used. Anesthetic medications included Lidocaine 2%, Proparacaine 0.5%. Procedure Preparation included 5% betadine to ocular surface, eyelid speculum. A 30 gauge needle was used. Injection: 2 mg aflibercept 2 MG/0.05ML Route: Intravitreal, Site: Right Eye ND: 35072-335-69, Lot: [id number], Expiration date: 03/27/2026, Waste: 0 mL Post-op [...] increased pain, redness, decreased vision or concerns. [facility] DivisionVhrpdtjaiz97-03-3435 History of Present illness Narrative* Dusty Nassar, DO - 03/07/2025 1:00 PM EDT Images from the original note were [...] 2 MG/0.05ML Route: Intravitreal, Site: Right Eye ND: 70040-648-75, Lot: [id number], Expiration date: 03/27/2026, Waste: 0 mL Post-op [...] decreased vision or concerns. documented in this encounterHCA Midwest DivisionWuqyoqsskn68-24-9911 NoteRight Eye Quality was good. Scan locations included subfoveal. Progression has worsened. Findings include intraretinal fluid, pigment epithelial detachment. Left Eye Quality was good. Scan locations included subfoveal. Progression has been stable. Findings include abnormal foveal contour.[facility] DivisionObpvutisep83-78-0978 Note Time Out 02/28/2025. 10:00 AM. Confirmed correct patient, procedure, site, and patient consented. Anesthesia Topical anesthesia was used. Anesthetic medications included Lidocaine 2%, Proparacaine 0.5%. Procedure Preparation included 5% betadine to ocular surface, eyelid speculum. Injection: 2 mg aflibercept 2 MG/0.05ML Route: Intravitreal, Site: Left Eye [facility]: 45531-071-00, Lot: [id number], Expiration date: 03/27/2026, Waste: 0 mL Post-op [...] with increased pain, redness, decreased vision or concerns.[facility] DivisionEaihayijbn85-29-6890 History of Present illness Narrative* Dusty Nassar, DO - 02/28/2025 9:15 AM EDT Images from the original note were not included. Assessment/Plan Diagnoses and all orders for this visit: 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 eye with active choroidal neovascularization ([facility]) - OCT, Retina - OU [...] 2 MG/0.05ML Route: Intravitreal, Site: Left Eye [facility]: 10955-903-58, Lot: [id number], Expiration date: 03/27/2026, Waste: 0 mL Post-op [...] antiVEGF. Very mild amount. documented in this encounterHCA Midwest DivisionCotqdhgjws00-47-9225 NoteTime Out 09/26/2024. 9:37 AM. Confirmed correct patient, procedure, site, and patient consented. Anesthesia Topical anesthesia was used. Anesthetic medications included Lidocaine 2%, Proparacaine 0.5%. Procedure Preparation included 5% betadine to ocular surface, eyelid speculum. Injection: 2 mg aflibercept 2 MG/0.05ML Route: Intravitreal, Site: Left Eye [facility]: 15360-509-29, Lot: [id number], Expiration date: 12/26/2025, Waste: 0 mL Post-op [...] with increased pain, redness, decreased vision or concerns.[facility] DivisionNbjuwsbtjl04-45-0479 NoteRight Eye Quality was good. Scan locations included subfoveal. Progression has been stable. Findings include abnormal foveal contour, epiretinal membrane, intraretinal fluid, pigment epithelial detachment. Left Eye Quality was good. Scan locations included subfoveal. Progression has been stable. Findings include normal observations. Notes Good scan with normal appearance left eye (OS)[facility] DivisionLycxrwzuoc37-49-5288 History of Present illness Narrative* Dusty Nassar, DO - 09/26/2024 9:00 AM EST Images from the original note were not [...] to attempt to extend. Right eye (OD) carriesPEDs with and epiretinal membrane (ERM) creating some [...] 2 MG/0.05ML Route: Intravitreal, Site: Left Eye [facility]: 77669-473-64, Lot: [id number], Expiration date: 12/26/2025, Waste: 0 mL Post-op [...] decreased vision or concerns. documented in this encounterHCA Midwest DivisionInxrahxbqd42-22-8998 NoteTime Out 07/25/2024. 2:58 PM. Confirmed correct patient, procedure, site, and patient consented. Anesthesia Topical anesthesia was used. Anesthetic medications included Lidocaine 2%, Proparacaine 0.5%. Procedure Preparation included 5% betadine to ocular surface, eyelid speculum. Injection: 2 mg aflibercept 2 MG/0.05ML Route: Intravitreal, Site: Left Eye [facility]: 39448-676-58, Lot: [id number], Expiration date: 08/27/2025, Waste: 0 mL Post-op [...] with increased pain, redness, decreased vision or concerns.[facility] DivisionEfphdzghkq66-99-4539 NoteRight Eye Quality was good. Scan locations included subfoveal. Progression has been stable. Findings include abnormal foveal contour, pigment epithelial detachment. Left Eye Quality was good. Scan locations included subfoveal. Progression has been stable. Findings include abnormal foveal contour.[facility] DivisionJttabisqhi43-77-2202 History of Present illness Narrative* Dusty Nassar, DO - 07/25/2024 1:45 PM EDT Images from the original note were [...] 2 MG/0.05ML Route: Intravitreal, Site: Left Eye [facility]: 96232-518-36, Lot: [id number], Expiration date: 08/27/2025, Waste: 0 mL Post-op [...] decreased vision or concerns. documented in this encounterHCA Midwest [id number] NoteTime Out 05/30/2024. 10:38 AM. Confirmed correct patient, procedure, site, and patient consented. Anesthesia Topical anesthesia was used. Anesthetic medications included Lidocaine 2%, Proparacaine 0.5%. Procedure Preparation included 5% betadine to ocular surface, eyelid speculum. Injection: 1.25 mg bevacizumab 100 MG/4ML Route: Intravitreal, Site: Left Eye [facility]: [id number], Lot: [id number], Expiration date: 08/14/2024, Waste: 0 mL Post-op [...] with increased pain, redness, decreased vision or concerns.[facility] DivisionPgrgeuuzrq20-34-3727 NoteRight Eye Quality was good. Scan locations included subfoveal. Progression has improved. Findings include abnormal foveal contour, intraretinal fluid, pigment epithelial detachment. Left Eye Quality was good. Scan locations included subfoveal. Progression has been stable. Findings include abnormal foveal contour.[facility] DivisionLllbeygquk68-75-8384 History of Present illness Narrative* Dusty Nassar, DO - 05/30/2024 9:45 AM EDT Images from the original note were not included. Assessment/Plan Diagnoses and all orders for this visit: 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 eye with active choroidal neovascularization (HCC) ([facility]/HCC) - OCT, Retina - OU - Both [...] 100 MG/4ML Route: Intravitreal, Site: Left Eye [facility]: [id number], Lot: [id number], Expiration date: 08/14/2024, Waste: 0 mL Post-op [...] MG/ML solution prefilled syringe as directed Subcutaneous Cdziqzooylt-Rkfmfymzwvg-BPK (Qvkxre-Kdmpp-GAR-Double Str) 500-400-167 MG tablet every 12 (twelve) [...] time each day at the same time [place]-3 Fatty Acids (Fish Oil) 1200 MG capsule [...] Normal Normal Refraction 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 documented in this encounterHCA Midwest DivisionDnpchfkmhs43-53-7582 Evaluation note* Encounter Date Diagnosis Assessment Notes Treatment Notes Treatment Clinical Notes Jun, Acute non-recurrent maxillary si nusitis (ICD-10 - J01.00) Finish antibiotic, stay hydrated. Ok for NSAIDs for head pressure. Call if no improvement. [facility] Other 08-17-2023 NoteSUBJECTIVE: Chief complaint: Back and right leg pain. History of present illness: Consultation referred by pain management, Dr. Layton of [facility]. Patient reports chronic low back pain for [...] any pre (more content not included)...[facility]08-17-2023 NoteSubjective: HPI: Letty Coffey is a [...] and assess x-rays of back. Malina Mckeon MS3[facility]07-18-[facility] Evaluation note* Encounter Date Diagnosis Assessment [...] is busy with other appts right now. [facility] Other 06-22-2023 Evaluation note* Encounter Date Diagnosis Assessment Notes Treatment Notes Treatment Clinical Notes Feb, Scoliosis of thoraco lumbar spine, unspecified scoliosis type (ICD- 10 - M41.9) I independently reviewed the plain [...] long as possible before considering surgical intervention. [facility] Other 05-04-2023 NoteCONSULTATION CONSULTATION DATE: 01/28/2023 TO: [...] our patients to inform us about any thjq-iml-jazwsjk medications or herbal remedies/nutritional supplements/alternative remedies. 2. [...] treatment options with their primary care provider.[facility] HealthEfzgdoad11-82-5578 Evaluation note * Encounter Date Diagnosis Assessment Notes Treatment Notes Treatment Clinical Notes Dec, Essential (primary) hypertension (ICD-10 - I10) new problem. rx handwritten. f/u 6 weeks. Dec,Other chronic pain (ICD-10 - G89.29) Dec,ain in left shoulder (ICD-10 - M25.512)PT order given to pt. [facility] Other 04-06-2023 NoteCONSULTATION CONSULTATION DATE: 12/31/2022 TO: [...] our patients to inform us about any dnpr-eyj-kpevhzg medications or herbal remedies/nutritional supplements/alternative remedies. 2. [...] treatment options with their primary care provider.[facility] HealthCrmgmimp21-93-8326 Note CONSULTATION PROCEDURE DATE: 10/07/2022 PREOPERATIVE DIAGNOSIS: [...] fan-like pattern. Patient tolerated the procedure well.[facility] HealthPjyyrddr96-61-4271 NoteCONSULTATION CONSULTATION DATE: 10/07/2022 HISTORY OF PRESENT [...] sitting does decrease her pain. Medications include gbxt-tqc-mhclfyc Tylenol and the use of Salonpas patches. [...] otherwise indicated. Patient agrees with this plan.[facility] HealthTbqwnxtj69-69-1693 NoteCONSULTATION CONSULTATION DATE: 07/30/2022 This is a [...] be followed up at the office thereafter.[facility] HealthPauhclan98-01-2495 NoteCONSULTATION CONSULTATION DATE: 06/25/2022 HISTORY OF PRESENT [...] patient is in agreement with this plan.[facility] HealthFactvdar90-31-6304 NoteCONSULTATION CONSULTATION DATE: 05/19/2022 CHIEF COMPLAINT: Right [...] like to proceed. CC: Luis Thomas M.D.[facility] HealthXivdzuyv10-33-5429 NoteCONSULTATION PROCEDURE DATE: 04/28/2022 PREOPERATIVE DIAGNOSIS: Right [...] Will be followed up in the office.[facility] HealthRfneqqjh48-22-4814 NoteCONSULTATION CONSULTATION DATE: 04/28/2022 CHIEF COMPLAINT: Right [...] like to proceed. CC: Luis Thomas M.D.[facility] [id number] NotePROCEDURE: XR HIP RT 2 3V W PELVIS COMPARISON: None. HISTORY: Arthropathy FINDINGS: BONES:No acute fracture or dislocation. Mild osteoarthropathy with marginal osteophyte formation. 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 No visible soft tissue swelling. EFFUSION:None visible. OTHER: Negative. 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 Electronically authenticated by: YOUSUF ORTIZ Date: 2022-03-05 10:09[facility] noteNo [employer] Other evaluation note* Diagnosis 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 eye with active choroidal neovascularization (CMS/HCC)- Primary documented in this encounter [facility] HealthcareEvaluation [facility]* Diagnosis 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 eye with active choroidal neovascularization (HCC) (CMS/HCC)- Primary Right posterior capsular opacification Unspecified after-cataract documented in this encounter [facility]Evaluation note* Diagnosis 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 eye with active choroidal neovascularization (CMS/HCC)- Primary documented in this encounter [facility]Evaluation note* Diagnosis 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 eye with active choroidal neovascularization (CMS/HCC)- Primary Exudative age-related macular 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 (CMS/HCC) documented in this encounter [facility] HealthcareEvaluation note* Diagnosis Exudative age-related macular 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 (CMS/HCC)- Primary documented in this encounter [facility]Evaluation note* Diagnosis Exudative age-related macular degeneration [...] Cystocele, midline documented [facility]* Diagnosis Exudative age-related macular 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 (HCC)- Primary [facility]* Diagnosis 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 eye with active choroidal neovascularization (HCC)- Primary documented in this encounter [facility] HealthcareHistory general Narrative - Reported* Type Description Date Medical History Osteopenia Medical HistoryCOVIDMedical HistoryHyperlipemiaMedical HistoryMenopauseMedical HistoryCardiac murmurMedical HistoryElevated blood pressure readingMedical HistoryHip pain, rightMedical HistoryMedication managementSurgical History APPENDECTOMYSurgical HistoryTAH AND BSOSurgical HistoryTONSILLECTOMYSurgical HistoryTYMPANOPLASTYSurgical HistoryCHOLESTEOTOMASurgical HistoryCOLONOSCOPY Hospitalization HistorySEE SURGICAL [facility] Other History general Narrative - Reported* Type Description Date Medical History Osteopenia Medical HistoryCOVIDMedical HistoryHyperlipemiaMedical HistoryMenopauseMedical HistoryCardiac murmurMedical HistoryElevated blood pressure readingMedical HistoryHip pain, rightMedical HistoryMedication managementMedical History ArthritisSurgical HistoryAPPENDECTOMYSurgical HistoryTAH AND BSOSurgical History TONSILLECTOMYSurgical HistoryTYMPANOPLASTYSurgical HistoryCHOLESTEOTOMASurgical HistoryCOLONOSCOPYSurgical HistoryhysterectomySurgical Historyear growth surgery Hospitalization HistorySEE SURGICAL [facility] Other Summary Purpose Family History No Family History Records FoundNo Family History Records FoundNo Family History Records FoundNo Family History Records FoundNo Family History Records Found Advance Directives No Advanced Directives Records FoundNo Advanced Directives Records FoundNo Advanced Directives Records FoundNo Advanced Directives Records FoundNo Advanced Directives Records Found Additional Source Comments INFORMATION SOURCE (unrecogn ized section and content) DATE CREATED AUTHOR 03/23/2018 [facility] DATE CREATED AUTHOR AUTHOR'S ORGANIZ ATION 02/10/2023 [facility] DATE CREATED AUTHOR AUTHOR'S ORGANIZ ATION 05/19/2023 [facility] DATE CREATED AUTHOR AUTHOR'S ORGANIZ ATION 06/13/2025 [facility] DATE CREATED AUTHOR AUTHOR'S ORGANIZ ATION 08/09/2025 [facility] EPIC REASON FOR VISIT (unrecogniz ed section and content) ReasonCommentsMacular DegenerationRetinal InjectionReasonCommentsFollow-upReason CommentsFollow-upRetinal InjectionMacular DegenerationReasonCommentsRetinal InjectionReasonCommentsFollow-upMacular DegenerationReasonCommentsRetinal InjectionMacular DegenerationReasonCommentsGynecologic ExamDenies concerns. Pt states currently on antibiotic for UTI. Denies breast concerns. Denies vaginal b leeding/spotting.ReasonCommentsFollow-upRetinal Injection Care Teams (unrecognized sec tion and content) Team MemberRelationshipSpecialtyStart DateEnd Date Wiley Price MD [address] [place] [address] [phone] [facility] - [facility]12/10/23 Kimber Price MD [facility] [place] [address] Referring PhysicianFami Medicine10/15/23Team MemberRelationshipSpecialtyStart DateEnd Wiley Price MD [address] [place] [address] [phone] [facility] - [facility]12/10/23 Kimber Price MD [facility] [place] [address] Referring PhysicianFamily Medicine10/15/23Team MemberRelationshipSpecialtyStart DateEnd Date Wiley Price MD [address] [place] [address] [phone] PCP - GeneralFamily Medicine12/10/23 Kimber Price MD [address] [place] [address] Referring PhysicianFami Medicine10/15/23Team MemberRelationshipSpecialtyStart DateEnd Date Wiley Price MD [address] [place] [address] (Fax) PCP - GeneralFamily Medicine12/10/23 Kimber Price MD [address] [place] [address] Referring PhysicianFamily Medicine10/15/23Team MemberRelationshipSpecialtyStart DateEnd Date Wiley Price MD [address] [place] [address] (Fax) PCP - Generalmily Medicine12/10/23 Kimber Price MD [facility] [place] [address] Referring PhysicianFamily Medicine10/15/23Team MemberRelationshipSpecialtyStart DateEnd Date Wiley Price MD [address] [place] [address] (Fax) PCP - Generalmily Medicine12/10/23 Kimber Price MD [address] [place] [address] Referring PhysicianFamily Medicine10/15/23Team MemberRelationshipSpecialtyStart DateEnd Date Wiley Price MD [address] [place] [address] (Fax) PCP - GeneralFamily Medicine12/10/23 Kimber Price MD [address] [place] [address] Referring PhysicianFamily Medicine10/15/23Team MemberRelationshipSpecialtyStart DateEnd Date Wiley Price MD [address] [place] [address] PCP - GeneralFamily Medicine12/10/23 Kimber Price MD [facility] [place] [address] Referring Physicianmily Medicine10/15/23Team MemberRelationshipSpecialtyStart DateEnd Date Wiley Price MD [address] [place] [address] (Fax) [facility] - [facility]12/10/23 Kimber Price MD [address] [place] [phone] Referring [facility]icianS[facility] Medicine10/15/23Team MemberRelationshipSpecialtyStart DateEnd Date Wiley Price MD [address] [place] [phone] (Fax) [facility] - [facility]12/10/23 Kimber Price MD [address] [place] [phone] Referring Physicianmi Medicine10/15/23Team MemberRelationshipSpecialtyStart DateEnd Date Wiley Price MD [address] [place] [phone] (Fax) PCP - GeneralFamily Medicine12/10/23 Kimber Price MD [facility] [place] [address] Referring PhysicianS[facility]ul[facility] Medicine10/15/23 FOR RECORDS PERTAINING TO PATIENTS WHO ARE [...] BE BASED ON THE PRIMARY CLINICAL RECORDS. [facility] [employer], [facility]. provides no warranty or guarantee of the accuracy or completeness of information in this document.
--- NOTE | 2025-08-13 08:16 | MM_ITS ---
Patient Name: GAYATHRI LOPEZ MR#: [id number] : 1945 Exam Date: 08/13/2025 Ordering Doctor: DR. BREANNE HENDERSON D.O. RADIOLOGY REPORT PROCEDURE: MM TOMOSYNTHESIS SCREENING BI COMPARISON: MM TOMOSYNTHESIS SCREENING BI, 08/11/2024. MM TOMOSYNTHESIS SCREENING BI, 07/19/2023. MG MAMM SCREEN 3D SHERRIE CAD, 03/05/2022. MG MAMM SHERRIE SCRN W CAD DIG, 06/12/2013. INDICATIONS: Screening Calculator Name NCI Breast Cancer Risk Assessment Tool 5 Year Breast Cancer Risk 1.50% Lifetime Breast Cancer Risk 2.80% Personal Breast Cancer No Personal Ovarian Cancer No Treatments None Family Cancers None LOCATION: [facility] BREAST COMPOSITION: There are scattered areas of fibroglandular density. FINDINGS: RIGHT BREAST: No significant suspicious finding. Benign-appearing calcifications present. LEFT BREAST: No significant suspicious finding. Benign-appearing calcifications present. DIAGNOSTIC CATEGORY 2--BENIGN FINDING. NO CHANGE FROM COMPARISON. RECOMMENDATIONS: ROUTINE MAMMOGRAM AND CLINICAL EVALUATION IN 12 MONTHS. Dictated by: Pee Dubose MD on 08/13/2025 at 13:33 Approved by: Pee Dubose MD on 08/13/2025 at 13:51
== END 2025-08-13 08:10 | disposition home or self-care (01) ==
LOC: MAMMO 08:09
PROVIDERS: PCP Nurse Practitioner Family; Visit Provider Obstetrics & Gynecology
DX: Z12.31 Encounter for screening mammogram for malignant neoplasm of breast (principal)
CPT/HCPCS: 77063; 77067

== ENCOUNTER 2025-09-13 08:54 | Outpatient (OUT) | payer MEDICARE, OTHER, SELFPAY ==
--- OUTSIDE RECORDS SUMMARY | 2025-09-13 08:58 | XMS_ITS | Clinical Summary ---
Author Organization [facility] Address [address], [address] [place] [address] Care Team Providers Care Disaster Recovery Specialist Name Role Phone Matty Sanz DO Primary Care Provider [phone] Allergies No known active allergies Medications MedicationSigDispense QuantityRefillsLast FilledStart DateEnd DateStatus MELOXICAM PO Take by mouth as neededActive raloxifene (EVISTA) 60 MG tablet Take 60 mg by mouth dailyActive Multiple Vitamins-Minerals (THERAPEUTIC MULTIVITAMIN-MINERALS) tablet Take 1 tablet by mouth dailyActive CALCIUM PO Take 600 mg by mouth 2 times dailyActive GLUCOSAMINE-CHONDROITIN PO Take by mouth 2 times dailyActive Cholecalciferol (VITAMIN D3) 5000 units TABS Take 7,000 Units by mouth dailyActive [place]-3 Fatty Acids (FISH OIL) 1000 MG CAPS Take 3,000 mg by mouth 3 times dailyActive niacin 500 MG extended release capsule Take 500 mg by mouth nightlyActive Multiple Vitamins-Minerals (PRESERVISION AREDS 2 PO) Take by mouth 2 times dailyActive aspirin 81 MG tablet Take 81 mg by mouth dailyActive Active Problems ProblemNoted DateDiagnosed DateMacular pucker, right eye04/27/2017 Family History Medical HistoryRelationNameCommentsCancerFatherHeart DiseaseMotherRelationName StatusCommentsFatherDeceasedMotherDeceased (Age 95) Social History Tobacco UseTypesPacks/DayYears UsedDateSmoking Tobacco: NeverAlcohol UseStandard Drinks/WeekCommentsNo0 (1 standard drink = 0.6 oz pure alcohol)Comments NoSex and Gender InformationValueDate RecordedSex Assigned at BirthNot on file Legal DuqQttpux90/08/2017 9:19 AM EDTGender IdentityNot on fileSexual OrientationNot on file Last Filed Vital Signs Vital SignReadingTime TakenCommentsBlood Przqywlc317/7404/27/2017 10:07 AM EDT Xakvq729604/27/2017 10:07 AM QYNMcbmzrgeqib59.3 ??C (97.3 ??F)04/27/2017 10:07 AM EDTRespiratory Ijmr051604/27/2017 10:07 AM EDTOxygen Zykdquzibj93%04/27/2017 10:07 AM EDTInhaled Oxygen Concentration--Aceygw63 kg (180 lb 12.4 oz)04/27/2017 8:03 AM VOWPycnaf285.5 cm (5' 2 )04/27/2017 8:03 AM EDTBody Mass Index33.0604/27/2017 8:03 AM EDT Plan of Treatment Not on file Insurance Care Teams Team MemberRelationshipSpecialtyStart DateEnd Date Matty Sanz PCP - GeneralInternal Medicine04/15/17
--- OUTSIDE RECORDS SUMMARY | 2025-09-13 08:58 | XMS_ITS | Patient Health Record ---
Author Organization [facility] Address [address] [place] [address] Care Team Providers Care Horticulture Worker Name Role Phone Larry Ross Unavailable [phone] Allergies No Known Allergies Reason For Referral No Information Medications Medication SIG (Take, Route, Frequency, Duration) Notes Start Date End Date Status Aspirin Low Dose ActiveBaclofenActiveVitamin G9BekxyienzfivxiPddyepPlmygkh H1LsabwqGwuafi multivitamin with vitamin Y3YylowdQzhedcPjhohjivzODAayZdyjtdbiiyodidrlByflkg PreserVision AREDS 2ActiveCalciumActiveGlucosamine ChondroitinActiveniacinActive Social History Tobacco Use: Social History Observation Description Date Details (start date - stop date) Never Smoker NA - NA AUDIT-C (Standard) Question Answer Notes Did you have a drink containing alcohol in the p ast year? 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 [address] [place] [id number], JANICESelf - patient is the insured Medical (General) History Medical History History ICD Code High Blood Pressure OsteoporosisRheumatoid arthritisSurgical History Surgery Date(Month/Year) Tonsillectomy/Adenoidectomy 1956 Cataract surgery 2016 Ruptured appendix 08/1978 Hysterectomy 07/1999
--- OUTSIDE RECORDS SUMMARY | 2025-09-13 08:58 | XMS_ITS | Clinical Summary ---
Author Organization [facility] Healthcare Address [address] [place] [address] Care Team Providers Care Die Maintenance Technician Name Role Phone Kimber Price MD Unavailable [phone] Wiley Price MD Primary Care Provider [phone] Allergies No known active allergies Medications MedicationSigDispense QuantityRefillsLast FilledStart DateEnd DateStatus aspirin 81 MG EC tablet 1 (one) time each day at the same timeActive baclofen (Lioresal) 10 MG tablet every 12 (twelve) hours04/30/2023ctive calcium carbonate (Super Calcium) 1500 (600 Ca) MG tablet 1 tablet with meals Orally OnceActive cholecalciferol (Vitamin D3) 25 MCG (1000 UT) tablet 1 (one) time each day at the same timeActive denosumab (Prolia) 60 MG/ML solution prefilled syringe as directed SubcutaneousActive Kcxnyxjiare-Mugderqxxwo-PHJ (Bripsf-Ikahg-ODJ-Double Str) 500-400-167 MG tablet every 12 (twelve) hoursActive losartan (Cozaar) 25 MG tablet Oral for 90 Days02/19/2023ctive Magnesium Glycinate 100 MG capsule 2 capsules 1 (one) time each day at the same timeActive Menaquinone-7 (Vitamin K2) 100 MCG capsule as directed OrallyActive Multiple Vitamins-Minerals (PreserVision AREDS 2) capsule 1 (one) time each day at the same timeActive Multiple Vitamins-Minerals (Womens 50+ Multi Vitamin) tablet as directed OrallyActive niacin 500 MG tablet 1 (one) time each day at the same timeActive Balm-3 Fatty Acids (Fish Oil) 1200 MG capsule delayed-release 1 capsule every 12 (twelve) hoursActive zonisamide (Zonegran) 50 MG capsule TAKE 3 CAPSULES BY MOUTH EVERY DAY AT BEDTIMEActive traMADol (Ultram) 50 MG tablet TAKE 1 TABLET BY MOUTH TWICE A DAY NEEDED FOR PAIN MUST LAST 30 DAYS 05/02/2024Active cefdinir (Omnicef) 300 MG capsule Take 300 mg by mouth in the morning and 300 mg before bedtime.5Active Active Problems ProblemNoted DateDiagnosed Date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 eye with active choroidal elbrjjarjkxwbgsvzm94/19/2024ight posterior capsular kzkrzhqrrxfqi08/15/2024ry eyes10/11/2023lepharitis of upper and lower eyelids of both eyes10/11/2023 Resolved Problems ProblemNoted DateDiagnosed DateResolved DateAdvanced atrophic nonexudative age- related macular degeneration of both eyes without subfoveal involvement / Encounters DateTypeDepartmentCare HakiFyqbitmpzxg85/18/2025 10:30 AM ESTClinical Support [facility] [address] [place] [phone] Bakari Nassar, DO Follow-up; Retinal Injection; Macular Khnnvrbyabwb59/18/2025amboo flowsheet [facility] [address] [place] [id number] Bakari Nassar, DO 08/14/20255255Xexlyk25/17/2025Orders Only [facility] [place] [facility] [address] [place] [address] Kriss Velez, DO 08/08/2025 9:30 AM ESTClinical Support [facility] [address] [place] [phone] Bakari Nassar, DO Macular Degeneration; Retinal Aeakyddpy67/12/2025amboo flowsheet [facility] [place] [address] [place] [address] Bakari Nassar, DO 08/08/20254484Iojtkk55/08/2025 11:15 AM EDTClinical Support [facility] [address] [place] [phone] Bakari Nassar, DO Macular Degeneration; Retinal Nypyavjoa78/08/2025Bamboo flowsheet [facility] [address] [place] [address] Bakari Nassar DO 07/04/2025Travelfrom Last 3 Months Family History Medical HistoryRelationNameCommentsCancerFatherCataractsMotherHypertensionMother DiabetesSisterThyroid diseaseSisterRelationNameStatusCommentsFatherMotherSister Social History Tobacco UseTypesPacks/DayYears UsedDateSmoking Tobacco: NeverSmokeless Tobacco: Never Tobacco Cessation:Counseling Given: Not Answered CommentsUnknownSex and Gender InformationValueDate RecordedSex Assigned at BirthNot on fileLegal WacUyzbtt85/01/2023 8:35 PM EDTGender IdentityNot on fileSexual OrientationNot on file Last Filed Vital Signs Vital SignReadingTime TakenCommentsBlood Iypssrnw321/70005/24/2025 10:16 AM EDT Pulse--Temperature--Respiratory Rate--Oxygen Saturation--Inhaled Oxygen Concentration--Rrkmdx88 kg (150 lb)05/24/2025 10:16 AM EDTHeight--Body Mass Index-- Plan of Treatment DateTypeDepartmentCare Team (Latest Contact Info)Aqnuhtwizrn05/02/2026 9:45 AM ESTClinical Support [facility] [address] [place] [address] Bakari Nassar DO [address] [place] [address] 06/05/2026 10:15 AM EDTOffice Visit [facility] [address] [place] [address] Kriss Velez DO [address] [place] [address] Health MaintenanceDue DateLast DoneCommentsCOVID-19 Vaccine (2024- season) , 08/11/2024, 07/26/2023, Additional history exists Pneumococcal Vaccine: 65+ QznesFfarooyip43/13/2018, 01/19/2017Influenza Vaccine Ehswsevjc46/31/2025, 08/11/2024, 07/26/2023, Additional history exists Procedures Procedure NamePriorityDate/TimeAssociated DiagnosisCommentsINTRAVITREAL INJECTION, PHARMACOLOGIC AGENT - OD - RIGHT NIHKihvyvc06/18/2025 10:39 AM EST Exudative age-related macular 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 (HCC) INTRAVITREAL INJECTION, PHARMACOLOGIC AGENT - OS - LEFT OJGRfbetsa79/12/2025 10:08 AM EST 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 eye with active choroidal neovascularization (HCC) OCT, RETINA - OU - BOTH BKZORpirohz37/12/2025 10:05 AM EST 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 eye with active choroidal neovascularization (HCC) INTRAVITREAL INJECTION, PHARMACOLOGIC AGENT - OD - RIGHT BUGGxnaurb33/08/2025 11:56 AM EDT Exudative age-related macular 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 (HCC) OCT, RETINA - OU - BOTH GXNZEnfezei03/08/2025 11:51 AM EDT Exudative age-related macular 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 (HCC) from Last 3 Months Results * Intravitreal Injection, Pharmacologic Agent - OD - Right Eye (08/14/2025 10:39 AM EST)Anatomical RegionLateralityModalityHeadOther Narrative 08/14/2025 10:39 AM EST Time Out 08/14/2025. 10:39 AM. Confirmed correct patient, procedure, site, and patient consented. Anesthesia Topical anesthesia was used. Anesthetic medications included Lidocaine 2%, Proparacaine 0.5%. Procedure Preparation included 5% betadine to ocular surface, eyelid speculum. A 30 gauge needle was used. Injection: 2 mg aflibercept 2 MG/0.05ML ??Route: Intravitreal, Site: Right Eye ??[facility]: 08405-985-40, Lot: [id number], Expiration date: 08/27/2026, Waste: 0 mL Post-op [...] Intravitreal injection with the prescribed antiVEGF agent. ?? With intraocular surgery, there is potential for direct retinal damage through retinal or RPE tear, or infection, with subsequent vision loss. ?? Informative Intravitreal pamphlet provided as well as an OMIC consent. ??Of course, the treatment may fail to accomplish the overall therapeutic objectives, which is to stall or decrease the amount of retinal edema / bleeding, and therefore stall or improve vision loss. Intravitreal Anti-VEGF: ??Consent was obtained and questions answered. ?? Operative eye was identified, receiving topical proparacaine, 5% betadine, and 2% xylocaine jelly. ??A lid speculum was placed and the inferotemp. injection site received additional anesthetic with a proparacaine soaked cotton swab. ??Using calipers (set at 3.5mm for pseudo and 4mm for phakic), the inferotemp. limbus was measured, sclera marked and 2 additional drops of betadine placed. ??Avoiding any talking to avoid contamination, intravitreal injection was carried out without difficulty. Any residual amount of medication was discarded appropriately. The patient tolerated the procedure well and instructed to call with increased pain, redness, decreased vision or concerns. ?? Authorizing ProviderResult TypeResult StatusJonatmarj Nassar [facility] PROCEDURESFinal Result * Intravitreal Injection, Pharmacologic Agent - OS - Left Eye (08/08/2025 10:08 AM EST)Anatomical RegionLateralityModalityHeadOther Narrative 08/08/2025 10:08 AM EST Time Out 08/08/2025. 10:08 AM. Confirmed correct patient, procedure, site, and patient consented. Anesthesia Topical anesthesia was used. Anesthetic medications included Lidocaine 2%, Proparacaine 0.5%. Procedure Preparation included 5% betadine to ocular surface, eyelid speculum. Injection: 2 mg aflibercept 2 MG/0.05ML ??Route: Intravitreal, Site: Left Eye ??[facility]: 05498-888-73, Lot: [id number], Expiration date: 08/27/2026, Waste: 0 mL Post-op [...] Intravitreal injection with the prescribed antiVEGF agent. ?? With intraocular surgery, there is potential for direct retinal damage through retinal or RPE tear, or infection, with subsequent vision loss. ?? Informative Intravitreal pamphlet provided as well as an OMIC consent. ??Of course, the treatment may fail to accomplish the overall therapeutic objectives, which is to stall or decrease the amount of retinal edema / bleeding, and therefore stall or improve vision loss. Intravitreal Anti-VEGF: ??Consent was obtained and questions answered. ?? Operative eye was identified, receiving topical proparacaine, 5% betadine, and 2% xylocaine jelly. ??A lid speculum was placed and the inferotemp. injection site received additional anesthetic with a proparacaine soaked cotton swab. ??Using calipers (set at 3.5mm for pseudo and 4mm for phakic), the inferotemp. limbus was measured, sclera marked and 2 additional drops of betadine placed. ??Avoiding any talking to avoid contamination, intravitreal injection was carried out without difficulty. Any residual amount of medication was discarded appropriately. The patient tolerated the procedure well and instructed to call with increased pain, redness, decreased vision or concerns. ?? Authorizing ProviderResult TypeResult StatusJonatmarj Nassar [facility] PROCEDURESFinal Result * OCT, Retina - OU - Both Eyes (08/08/2025 10:05 AM EST)Anatomical Region LateralityModalityHeadOptical Coherence Tomography Narrative 08/08/2025 10:05 AM EST Right Eye Quality was good. Scan locations included subfoveal. Progression has been stable. Findings include abnormal foveal contour, epiretinal membrane, intraretinal fluid, pigment epithelial detachment. Left Eye Quality was good. Scan locations included subfoveal. Progression has been stable. Findings include normal observations. Notes Good scan with normal appearance Authorizing ProviderResult TypeResult StatusBakari Nassar [facility] TOM[facility]GR[facility] Final Result * Intravitreal Injection, Pharmacologic Agent - OD - Right Eye (07/04/2025 11:56 AM EDT)Anatomical RegionLateralityModalityHeadOther Narrative 07/04/2025 11:56 AM EDT Time Out 07/04/2025. 11:56 AM. Confirmed correct patient, procedure, site, and patient consented. Anesthesia Topical anesthesia was used. Anesthetic medications included Lidocaine 2%, Proparacaine 0.5%. Procedure Preparation included 5% betadine to ocular surface, eyelid speculum. A 30 gauge needle was used. Injection: 2 mg aflibercept 2 MG/0.05ML ??Route: Intravitreal, Site: Right Eye ??[facility]: 80074-488-25, Lot: [id number], Expiration date: 06/27/2026, Waste: 0 mL Post-op [...] Intravitreal injection with the prescribed antiVEGF agent. ?? With intraocular surgery, there is potential for direct retinal damage through retinal or RPE tear, or infection, with subsequent vision loss. ?? Informative Intravitreal pamphlet provided as well as an OMIC consent. ??Of course, the treatment may fail to accomplish the overall therapeutic objectives, which is to stall or decrease the amount of retinal edema / bleeding, and therefore stall or improve vision loss. Intravitreal Anti-VEGF: ??Consent was obtained and questions answered. ?? Operative eye was identified, receiving topical proparacaine, 5% betadine, and 2% xylocaine jelly. ??A lid speculum was placed and the inferotemp. injection site received additional anesthetic with a proparacaine soaked cotton swab. ??Using calipers (set at 3.5mm for pseudo and 4mm for phakic), the inferotemp. limbus was measured, sclera marked and 2 additional drops of betadine placed. ??Avoiding any talking to avoid contamination, intravitreal injection was carried out without difficulty. Any residual amount of medication was discarded appropriately. The patient tolerated the procedure well and instructed to call with increased pain, redness, decreased vision or concerns. ?? Authorizing ProviderResult TypeResult Glen Nassar [facility] PROCEDURESFinal Result * OCT, Retina - OU - Both Eyes (07/04/2025 11:51 AM EDT)Anatomical Region LateralityModalityHeadOptical Coherence Tomography Narrative 07/04/2025 11:51 AM EDT Right Eye Quality was good. Scan locations included subfoveal. Progression has been stable. Findings include abnormal foveal contour, epiretinal membrane, pigment epithelial detachment. Left Eye Quality was good. Scan locations included subfoveal. Progression has been stable. Findings include normal observations. Notes Good scan with normal appearance Authorizing ProviderResult TypeResult Glen Nassar [facility] TOMOGRAPHY Edited Result - Final from Last 3 Months Insurance [address] [place] [address] Care Teams Team MemberRelationshipSpecialtyStart DateEnd Wiley Price MD [address] [place] [address] PCP - GeneralFamily Medicine12/10/23 Kimber Price MD [address] [place] [id number] Referring PhysicianFamily Medicine10/15/23
--- OUTSIDE RECORDS SUMMARY | 2025-09-13 08:59 | XMS_ITS | Clinical Summary ---
Author Organization [facility] Address [address] [place] [address] Care Team Providers Care Temporary Administrative Assistant Name Role Phone Emely Kramer MD Primary Care Provider [phone] Allergies No known active allergies Medications MedicationSigDispense QuantityRefillsLast FilledStart DateEnd DateStatus omega-3 1,000 mg capsule capsule Take 360 mg by mouth.Active glucosamine/chondr aleman A sod (glucosamine-chondroitin) 167-133 mg capsule Take by mouth.Active CALCIUM-VITAMIN D3 ORAL Take 600 mg by mouth.Active niacin 500 mg ER capsule Take 500 mg by mouth.Active cholecalciferol (D3-5) 5,000 Units tablet Take 7,000 Units by mouth.Active aspirin 81 mg EC tablet Take 81 mg by mouth.Active losartan (Cozaar) 25 mg tablet Take 25 mg by mouth in the morning.02/19/2023ctive baclofen (Lioresal) 10 mg tablet TAKE 1/2 TO 1 TABLET BY MOUTH 2 TIMES A DAY04/30/2023ctive zonisamide (Zonegran) 50 mg capsule Take 100 mg by mouth at bedtime.04/30/2023ctive denosumab (Prolia) 60 mg/mL syringe Inject 60 mg under the skin 1 (one) time.Active multivitamin tablet Take 1 tablet by mouth in the morning.Active vit C/E/Zn/coppr/lutein/zeaxan (PRESERVISION AREDS-2 ORAL) Take by mouth.Active VITAMIN K2 ORAL Take by mouth.Active Active Problems ProblemNoted DateDiagnosed DateMacular pucker, right eye Immunizations ImmunizationAdministration DatesNext DueCovid (Pfizer) Bivalent Booster =>12 YRS 2022Influenza, High Dose Seasonal, Preservative Free2017Influenza, High-dose Seasonal, Quadrivalent, Preservative Free07/03/2021Influenza, Seasonal, Quadrivalent, Yyfbjrgvie41/21/2022,07/02/2020Influenza, injectable, quadrivalent, preservative free08/12/2015Influenza, seasonal, injectable 08/03/2013Influenza, seasonal, injectable, preservative free, 6 moonths & older 07/24/2014Influenza, trivalent, qrdnvaaqaj06/18/2018Pfizer SARS-CoV-2 Trbluikhpfb29/07/2021,11/21/2020,1Pneumococcal Conjugate PCV 13 01/19/2017Pneumococcal Polysaccharide ZIP317206/09/2018Zoster, Recombinant 12/08/2019 Family History Medical HistoryRelationNameCommentsStomach cancerFatherheart issuesMother RelationNameStatusCommentsFatherMother Social History Tobacco UseTypesPacks/DayYears UsedDateSmoking Tobacco: NeverSmokeless Tobacco: NeverAlcohol UseStandard Drinks/WeekCommentsNever0 (1 standard drink = 0.6 oz pure alcohol)Humiliation, Afraid, Rape, and Kick questionnaireAnswerDate RecordedWithin the last year, have you been afraid of your partner or ex-partner?No05/13/2023Emotionally AbusedNot on file05/13/2023hysically Abused Not on file05/13/2023Sexually AbusedNot on file05/13/2023HQ-2AnswerDate RecordedPatient Health Questionnaire-2 Qxxdi446UT Safety & Environment AnswerDate RecordedWithin the last year, have you been afraid of your partner or ex-partner?No05/13/2023Emotionally AbusedNot on file05/13/2023hysically Abused Not on file05/13/2023Sexually AbusedNot on file05/13/2023In the past year have you been physically or sexually abused?Unrecognized value3 CommentsUnknownSex and Gender InformationValueDate RecordedSex Assigned at Not on fileLegal TdiJcreme16/21/2023 1:18 PM EDTGender IdentityChoose not to uldscyhu34/17/2023 12:14 PM EDTSexual OrientationChoose not to disclose 05/13/2023 12:14 PM EDT Last Filed Vital Signs Vital SignReadingTime TakenCommentsBlood Nrftrcnk005/75005/13/2023 10:58 AM EDT Ktbev381505/13/2023 10:58 AM FXKZnrcvmqxeua27.8 ??C (98.3 ??F)05/13/2023 10:58 AM EDTRespiratory Rate--Oxygen Saturation--Inhaled Oxygen Concentration--Tcumtp68.4 kg (172 lb 12.8 oz)05/13/2023 10:58 AM SWYRjfkvs200.2 cm (5' 1.5 )05/13/2023 10:58 AM EDTBody Mass Index32.12005/13/2023 10:58 AM EDT Plan of Treatment Health MaintenanceDue DateLast DoneCommentsMedicare Annual Wellness (AWV) 1945Depression Tbqiqosfr32/21/1959Adult Aztpozu8107/17/1969Fall Risk Cxkhxjzzw00/21/2012Zoster Vaccines (2 of 2)COVID-19 Vaccine ( season), 07/03/2021, 11/21/2020, Additional history existsInfluenza Vaccine (#1), 07/03/2021, 07/02/2020, Additional history existsPneumococcal Vaccine: 50+ YearsCompleted 06/09/2018, 01/19/2017HIB VaccinesAged OutNo longer eligible based on patient's age to complete this topicHPV VaccinesAged OutNo longer eligible based on patient's age to complete this topicIPV VaccinesAged OutNo longer eligible based on patient's age to complete this topicMeningococcal B VaccineAged OutNo longer eligible based on patient's age to complete this topicMeningococcal VaccineAged OutNo longer eligible based on patient's age to complete this topicRotavirus VaccinesAged OutNo longer eligible based on patient's age to complete this topic Insurance * Guarantor: Letty CoffeyAccophilipp TypeRelation to PatientDate of BirthPhone Billing AddressPersonal/OlqqftKutq1945 [address] [address] Care Teams Team MemberRelationshipSpecialtyStart DateEnd Date Emely Kramer MD [address] [facility] [address] [facility]05/13/23
--- OUTSIDE RECORDS SUMMARY | 2025-09-13 08:59 | XMS_ITS | Patient Health Record ---
Author Organization [facility] [place] Address [address] [place] [address] Care Team Providers Care Front End Specialist Name Role Phone Kimber Price Primary Care Provider [phone] Trey Motley Ottoniel [phone] Allergies No Known Allergies Results Component Value Reference Range Notes UA (Urinalysis, Dipstix only - w/o micro) Reviewed date:06/05/2025 10:36:47 AM Interpretation: Performing Lab: Notes/Report: COLOR yellow Yellow - Poly - CLARITYclearClear - ClearGLUCOSE-0 - 133 MG/DLALBUMIN-NEG - NEG MG/DLBILIRUBIN- NEG - NEG MG/DLSPECIFIC GRAVITY1.0151.001 - 1.035KETONES+NEG - NEG MG/DLBLOOD, UR-PH, UR5.05 - 9UROBILNOGEN-0.2 - 1 MG/DLNITRITE+NEG - NEGESTERASE ([place])+NEG - NEG MG/DLUA RANDOM W or MICROSCOPIC Reviewed date:06/05/2025 10:36:47 AM Interpretation: Performing Lab: Notes/Report: [facility] ,Color UrineLT. YELLOWYELLOWClarity UrineCLOUDYCLEARSpecific [place] Urine1.020 1.005-1.025pH Urine6.05.0-9.0Protein UrineNEGATIVENEG/TRACE mg/dLGlucose Urine UANEGATIVENEGATIVE mg/dLBilirubin UrineNEGATIVENEGATIVEKetones UrineNEGATIVE NEGATIVE mg/dLBlood UrineTRACE-INEGATIVENitrite UrineNEGATIVENEGATIVE Urobilinogen Urine0.20.2-1.0 EU/dLLeukocyte Esterase UrineLARGENEGATIVEWBC Urine 75-100NONE SEEN #/HPFRBC Rvrdb7-710-0 #/HPFBacteria UrineMODERATENONE SEEN #/HPF Mucus UrineNONE SEENNONE SEENSquamous Epithelial Cell UrineRARENONE/RARE #/LPF Crystals Seen?SeenNone Seen #/HPFCalcium Oxalate Crystals UrineFEWCast Seen?NONE SEENNONE SEEN #/LPFPerforming Lab:see noteML - [facility] LBUrine [facility] - [facility] Reviewed date:06/11/2025 03:31:37 PM Interpretation: Performing Lab: Notes/Report: [facility] ,Urine Culture - [facility]MCSee Below For Report Urine [facility] Testing performed at [facility] O:ENTFAC Isolated Urine Culture - [facility] Equality Count Organism: 1.1 Antibiotic Interpretation SUSHANT Status Urine Culture - [id number] [place] [address] Urine [facility] - [facility] Testing performed at [facility] O:ENTFAC Isolated Urine Culture - [facility] Equality Count Organism: 1.1 Antibiotic Interpretation SUSHANT Status Urine Culture - FRMCSee Below For Report Urine Culture - [facility] Testing performed at [facility] O:ENTFAC Isolated Urine Culture - [facility] Equality Count Organism: 1.1 Antibiotic Interpretation SUSHANT Status Urine Culture - FRMCSee Below For Report Urine Culture - [facility] Testing performed at [facility] O:ENTFAC Isolated Urine Culture - [facility] Equality Count Organism: 1.1 Antibiotic Interpretation SUSHANT Status Urine Culture - [facility]>100,000 [facility]rine [facility] Testing performed at [facility] O:ENTFAC Isolated Urine Culture - [facility] Equality Count Organism: 1.1 Antibiotic Interpretation SUSHANT Status Urine Culture - FRMCSee Below For Report Urine Culture - [facility] Testing performed at [facility] O:ENTFAC Isolated Urine Culture - [facility] Equality Count Organism: 1.1 Antibiotic Interpretation SUSHANT Status Urine Culture - FRMCAmpicillin S F Urine Culture - [facility] Testing performed at [facility] O:ENTFAC Isolated Urine Culture - [facility] Equality Count Organism: 1.1 Antibiotic Interpretation SUSHANT Status Urine Culture - FRMCDaptomycin S F Urine Culture - [facility] Testing performed at [facility] O:ENTFAC Isolated Urine Culture - [facility] Equality Count Organism: 1.1 Antibiotic Interpretation SUSHANT Status Urine Culture - FRMCLevofloxacin S F Urine Culture - [facility] Testing performed at [facility] O:ENTFAC Isolated Urine Culture - [facility] Equality Count Organism: 1.1 Antibiotic Interpretation SUSHANT Status Urine Culture - FRMCLinezolid S F Urine Culture - [facility] Testing performed at [facility] O:ENTFAC Isolated Urine Culture - [facility] Equality Count Organism: 1.1 Antibiotic Interpretation SUSHANT Status Urine Culture - FRMCNitrofurantoin S F Urine Culture - [facility] Testing performed at [facility] O:ENTFAC Isolated Urine Culture - [facility] Equality Count Organism: 1.1 Antibiotic Interpretation SUSHANT Status Urine Culture - FRMCTetracycline S F Urine Culture - [facility] Testing performed at [facility] O:ENTFAC Isolated Urine Culture - [facility] Equality Count Organism: 1.1 Antibiotic Interpretation SUSHANT Status Urine Culture - FRMCVancomycin S F Urine Culture - [facility] Testing performed at [facility] O:ENTFAC Isolated Urine Culture - [facility] Equality Count Organism: 1.1 Antibiotic Interpretation SUSHANT Status Urine Culture - FRMCCiprofloxacin I F Urine Culture - [facility] Testing performed at [facility] O:ENTFAC Isolated Urine Culture - [facility] Equality Count Organism: 1.1 Antibiotic Interpretation SUSHANT Status Performing Lab:see note ML - [facility] LB SEE REPORT - Purchase Request Editor Id information not found for OBX-specific web content producer legend UA RANDOM W or MICROSCOPIC Reviewed date:06/28/2025 02:26:08 PM Interpretation: Performing Lab: Notes/Report: [facility] ,Color UrineLT. YELLOWYELLOWClarity UrineCLEARCLEARSpecific [place] Urine1.020 1.005-1.025pH Urine6.05.0-9.0Protein UrineNEGATIVENEG/TRACE mg/dLGlucose Urine UANEGATIVENEGATIVE mg/dLBilirubin UrineNEGATIVENEGATIVEKetones UrineNEGATIVE NEGATIVE mg/dLBlood UrineNEGATIVENEGATIVENitrite UrineNEGATIVENEGATIVE Urobilinogen Urine0.20.2-1.0 EU/dLLeukocyte Esterase UrineMODERATENEGATIVEWBC Urine5-10NONE SEEN #/HPFRBC Urine0-20-2 #/HPFBacteria UrineTRACENONE SEEN #/HPF Mucus UrineTRACENONE SEENSquamous Epithelial Cell UrineMODERATENONE/RARE #/LPF Crystals Seen?None SeenNone Seen #/HPFCast Seen?NONE SEENNONE SEEN #/LPFUrine Culture IndicatedALREADY ORDEREDPerforming Lab:see note - [facility] LBUrine Culture [facility] Reviewed date:06/29/2025 02:31:53 PM Interpretation: Performing Lab: Notes/Report: [facility] ,Urine Culture - FRMCSee Below For Report Urine Culture - [facility] >100,000 colonies/ml mixed Urine Culture - FRMCbacterial skin contaminants Urine Culture - [facility] >100,000 colonies/ml mixed Urine Culture - [facility]2 Days Urine Culture - [facility] >100,000 colonies/ml mixed Urine Culture - [facility] Urine Culture - [facility] >100,000 colonies/ml mixed Urine Culture - FRMCTesting performed at [facility] Urine Culture - [facility] >100,000 colonies/ml mixed Urine Culture - [id number] [place] [address] Urine Culture - [facility] >100,000 colonies/ml mixed Performing Lab:see note - [facility] LBCALCIUM Reviewed date:08/13/2025 10:39:33 AM Interpretation: Performing Lab: Notes/Report: [facility] ,Calcium8.98.5-10.1 mg/dLPerforming Lab:see note - [facility] LB CREATININE Reviewed date:08/13/2025 10:39:33 AM Interpretation: Performing Lab: Notes/Report: [facility] ,Creatinine0.610.55-1.02 mg/dLEstimated GFR ( Ginger>60>=60 mL/min/1.73m 2Estimated GFR (Non- Miriam>60>=60 mL/min/1.73m 2Performing Lab:see note - [facility] LBCREATININE Reviewed date:02/08/2025 03:45:06 PM Interpretation: Performing Lab: Notes/Report: [facility] ,Creatinine0.580.55-1.02 mg/dLEstimated GFR ( Ginger>60>=60 mL/min/1.73m 2Estimated GFR (Non- Miriam>60>=60 mL/min/1.73m 2Performing Lab:see noteML - [facility] LBCALCIUM Reviewed date:02/08/2025 03:44:08 PM Interpretation: Performing Lab: Notes/Report: [facility] ,Calcium9.18.5-10.1 mg/dLPerforming Lab:see noteML - [facility] LBMM tomosynthesis screening BI Reviewed date:08/14/2025 04:00:02 PM Interpretation: Performing Lab: Notes/Report: Source Facility: [facility]-[address] [place] [address] [place] [address] Mammography Report Signed Patient: LETTY COFFEY MR#: [id number] : 1945 Acct:[id number] Age/Sex: 80 / F ADM Date: 08/13/25 Loc: MAMMO Attending Dr: BREANNE HENDERSON Ordering Physician: BREANNE HENDERSON Results: Date of Service: 08/13/25 Follow Up: Procedure(s): MM tomosynthesis screening BI Accession Number(s): [id number] cc: KIMBER PRICE ; BREANNE HENDERSON Patient Name: LETTY COFFEY MR#: [id number] : 1945 Exam Date: 08/13/2025 Ordering Doctor: DR. BREANNE HENDERSON D.O. RADIOLOGY REPORT PROCEDURE: MM TOMOSYNTHESIS SCREENING BI COMPARISON: MM TOMOSYNTHESIS SCREENING BI, 08/11/2024. MM TOMOSYNTHESIS SCREENING BI, 07/19/2023. MG MAMM SCREEN 3D SHERRIE CAD, 03/05/2022. MG MAMM SHERRIE SCRN W CAD DIG, 06/12/2013. INDICATIONS: Screening Calculator Name NCI Breast Cancer Risk Assessment Tool 5 Year Breast Cancer Risk 1.50% Lifetime Breast Cancer Risk 2.80% Personal Breast Cancer No Personal Ovarian Cancer No Treatments None Family Cancers None LOCATION: [facility] BREAST COMPOSITION: There are scattered areas of fibroglandular density. FINDINGS: RIGHT BREAST: No significant suspicious finding. Benign-appearing calcifications present. LEFT BREAST: No significant suspicious finding. Benign-appearing calcifications present. DIAGNOSTIC CATEGORY 2--BENIGN FINDING. NO CHANGE FROM COMPARISON. RECOMMENDATIONS: ROUTINE MAMMOGRAM AND CLINICAL EVALUATION IN 12 MONTHS. Dictated by: Pee Dubose MD on 08/13/2025 at 13:33 Approved by: Pee Dubose MD on 08/13/2025 at 13:51 Dictated By: Pee Dubose M.D. Signed By: 08/13/25 1352 DD/ 135 TD/TT: Propagation Manager: Reason For Referral No Information Medications Medication SIG (Take, Route, Frequency, Duration) Notes Start Date End Date Status Diclofenac Sodium 75 MG 1 tablet as need ed Orally Twice a day; Duration: 14 days 5ActiveWomens 50+ Multi Vitamin -as directed OrallyActiveVitamin K2 100 MCGas directed OrallyActiveCalcium 600 MG1 tablet with meals Orally OnceActive Vitamin D 25 MCG (1000 UT)1 tablet Orally Once a dayActiveBaclofen 10 MGTAKE 1 TABLET BY MOUTH Oral BID; Duration: 30 daysActivetraMADol HCl 50 MG1 tablet as needed Orally Once a dayPAIN OYFFPJ655ActiveMagnesium Glycinate 100 MG2 capsule Orally DailyActiveLosartan Potassium 25 MGTAKE 1 TABLET BY MOUTH EVERY DAY; Duration: 90 pdhiPzozsiGwfrya-Zaefb-ZMA-Double Str 500-400-167 MG1 tablet Orally BIDActiveFish Oil 1200 MG1 capsule Orally bidActiveZonisamide 50 MG3 cap Oral Q HS; Duration: 30 daysActiveAspirin 81 81 MG1 tablet Orally Once a day ActiveProlia 60 MG/MLas directed SubcutaneousActivePreserVision AREDS 2 -2 aday Orally DailyActiveNiacin 500 MG1 tablet with food Orally Once a dayActive Doxycycline Monohydrate 100 MG1 capsule Orally Twice a day; Duration: 10 5Active Social History Tobacco Use: Social History Observation Description Date Details (start date - stop date) Never Smoker NA - NA Tobacco Use/Smoking Question Answer Notes Patient is a nonsmoker Alcohol Screen (Audit-C) Question Answer Notes Did you have a drink containing alcohol in the p ast year? No Pptvpu0TomysqsjfcdcqxTxnaqidwGAUHX-D (Standard) Question Answer Notes Did you have a drink containing alcohol in the p ast year? No Aruaui6PpndardtljeehbRordebxp Problems Problem Type SNOMED Code ICD Code Onset Dates Problem Status W/U Status Risk Notes Problem Essential hypertension (10262741 ) Essential (primary) hypertension (I10) ActiveconfirmedProblemAge-related osteoporosis (582469671)Age-related osteoporosis without current pathological fracture (M81.0)ActiveconfirmedProblem Chronic maxillary sinusitis (94160777)Chronic maxillary sinusitis (J32.0)Active confirmedProblemHyperlipidemia (11670154)Hyperlipidemia (E78.5)Activeconfirmed ProblemRotoscoliosis (M41.80)Activeconfirmed Vital Signs Blood pressure diastolic 60 mm Hg 06/04/2025 Erxkkt23.5 in06/04/2025lood pressure csbgklcu135 mm Hg06/04/20250176Votpgf104.4 lbs 06/04/2025BMI27.95 kg/m206/04/2025 Encounters Encounter Location Date Provider Diagnosis [facility] [address] [place] [address] 06/07/2025 Trey Hoy Dysuria R30.0 [facility] [address] [place] [address] 11/13/2024 Kimberlia Price Left hand pain M79.642 [facility] [address] [place] [address] 05/17/2025 Kimber Dee UTI symptoms R39.9 [facility] [address] [place] [address] 06/04/2025 Kimberlia Price Dysuria R30.0 [facility] [address] [facility] [place] [address] 05/17/2025 Kimberlia Price UTI symptoms R39.9 [facility] [address] [facility] [place] [address] 06/05/2025 Kimber Price [facility] [place] [address] 06/11/2025Pamela DeeDysuria R30.0[facility] [place] [address]/03/2025[facility] [address] [place] [address]/Kimber Price Assessments Encounter Date Diagnosis (ICD Code) Assessment Notes Treatment Notes Treatment Clinical Notes Section Notes 11/13/2024 Left hand pain (ICD-10 - M79.642 ) likely arthritic flare try diclofenac, if not helping , try prednisone fu as needed discussed rheum referral, NCS 05/17/2025UT symptoms (ICD-10 - R39.9) defers UA CS right now if sx continue, notify office Wednesday will order UA CS 06/04/2025Dysuria (ICD-10 - R30.0)05/17/2025UTI symptoms (ICD-10 - R39.9) 06/11/2025Dysuria (ICD-10 - R30.0)06/07/2025Dysuria (ICD-10 - R30.0) Plan Of Treatment Pending Test Test Name Order Date CMP (COMPLETE METABOLIC PANEL) 4 UA (URINALYSIS, COMPLETE) 06/04/2025 UA (URINALYSIS, COMPLETE) 06/11/2025 HEMOGLOBIN A1C (GLYCO) 01/26/2024 IRON, TOTAL 01/26/2024 LIPID PANEL (CHOL/TRIG/HDL/LDL) 01/26/20 24 CBC WITH DIFF (EXP 07/2025) 01/26/2024 VITAMIN D, 25 LEVEL (TOTAL) 01/26/2024 DEXA Axial Skeleton (hips, pelvis, spine )* 07/31/2024 Urine Culture 06/04/2025 Insulin Level 01/26/2024 CULTURE URINE 06/11/2025 URINE MICROSCOPIC ONLY 06/11/2025 THYROID PANEL (T4/TSH/FREE T3) 4 Insurance Providers Payer Name Payer Address Payer Phone Subscriber Number Group Number Insured Name Patient Relationship to Insured Coverage Start Date Coverage End Date [place] [address] [place] [address] [id number] Alexandria Coffey - patient is the insuredO MEDICARE SUPP[address]MENTPO [address] [place] [id number], JaniceSelf - patient is the insured Medical (General) History Medical History History ICD Code Hypertension I10 Osteoporosis M81.0 Low back pain associated wit h a spinal disorder other than radiculopathy or spinal stenosis M54.50 Surgical History Surgery Date(Month/Year) appendectomy hysterectomyHospitalization History Reason Date(Month/Year) see above
--- NOTE | 2025-09-13 09:21 | P.CN_ITS ---
Consult Note: HPI Data of Consult Patient: known to practice within the last 3 years Requesting Physician: Bessy Johnson NP Primary Care Provider: KIEL ALMODOVAR Consult Narrative Reason for consult: low back pain Narrative: 80 year old female presents for evaluation of chronic right low back and SIJ pain. Pain today 2/10 aching, increasing to 7/10 with standing, walking, twisting, pushing, pulling. currently utilizing tylenol, baclofen, tramadol, zonegran, and ASA with benefit without side effects. has failed to benefit from > 6 weeks of PT and provider guided HEP, heat, ice, tylenol, NSAIDs, and oral steroids. notes prior right SIJ injection provided >50% improvement in pain/functional ability but noting her pain is worsening over the last few days cc:: CC: Bessy Johnson NP Review of Systems ROS Musculoskeletal Reports: back pain; Denies: extremity pain [facility]SH [facility] Medical History Osteoarthritis ?M19.90 - Unspecified osteoarthritis, unspecified site (ICD-10) Low back pain ?M54.50 - Low back pain, unspecified (ICD-10) Hiatal hernia ?K44.9 - Diaphragmatic hernia without obstruction or gangrene (ICD-10) Obesity ?E66.9 - Obesity, unspecified (ICD-10) Heart murmur ?R01.1 - Cardiac murmur, unspecified (ICD-10) Surgical History History of ear surgery ?Z98.890 - Other specified postprocedural states (ICD-10) History of phacoemulsification of cataract with intraocular lens implantation ?Z98.49 - Cataract extraction status, unspecified eye (ICD-10) ?Z96.1 - Presence of intraocular lens (ICD-10) Hx of appendectomy ?Z90.49 - Acquired absence of other specified parts of digestive tract (ICD- 10) H/O: hysterectomy ?Z90.710 - Acquired absence of both cervix and uterus (ICD-10) History of tonsillectomy ?Z90.89 - Acquired absence of other organs (ICD-10) Meds Home Medications and Allergies Home Medications ?Medication ?Instructions ?Recorded ?Confirmed ?Type aspirin 81 mg tablet,delayed 81 mg PO DAILY 02/26/23 0 06/11/25 History release (Adult Low Dose Aspirin) denosumab 60 mg/mL subcutaneous 60 mg subcut .Q6 MONTH S 02/26/23 06/11/25 History syringe (Prolia) niacin 500 mg tablet 500 mg PO DAILY 02/26/23 History losartan 25 mg tablet 25 mg PO DAILY 03/01/2305/28 History antiarthritic combination no.2 900 2 mg PO DAILY 07/1506/11/25 History mg tablet (glucosamine-chondroitin) calcium 600 mg (as 2 cap PO DAILY 07/15/2305/28 History carbonate)-vitamin D3 5 mcg (200 unit) capsule (Calcium 600 + D(3)) magnesium glycinate 100 mg (as 100 mg PO BID 07/15/23 06/11/25 History glycinate) tablet (Mag Glycinate) multivitamin (Daily Multi-Vitamin 1 tab PO DAILY 07/1506/11/25 History tablet) omega 6-myd-szx-fish oil 1,200 mg 2 cap PO DAILY 07/1506/11/25 History (144 mg-216 mg) capsule (Fish Oil) vit C 250 mg-vit E 90 mg-zinc 40 1 tab PO BID 07/15/23 06/11/25 History mg-copper 1 eh-cuozbi-zjfarb capsule (PreserVision AREDS-2) vitamin K2 100 mcg capsule 100 mcg PO DAILY 07/15/23 0 06/11/25 History cholecalciferol (vitamin D3) 50 2,000 unit PO BID 12/2606/11/25 History mcg (2,000 unit) capsule (Vitamin D3) baclofen 10 mg tablet 10 mg PO BID PRN muscle spas m #180 09/13/24 06/11/25 Rx tabs tramadol 50 mg tablet See Rx Instructions .Route 0 12/19/24 06/11/25 Rx .COMPLEX PRN pain #75 tabs zonisamide 50 mg capsule 150 mg (3 x 50 mg) PO DAILY #90 01/04/25 06/11/25 Rx caps zonisamide 50 mg capsule See Rx Instructions .Route 0 04/04/25 06/11/25 Rx .COMPLEX #90 caps tramadol 50 mg tablet See Rx Instructions .Route 1 Rx .COMPLEX PRN pain #75 tabs zonisamide 50 mg capsule See Rx Instructions .Route 1 10/01/24 Rx .COMPLEX #90 caps tramadol 50 mg tablet See Rx Instructions .Route 1 10/06/24 Rx .COMPLEX PRN pain #75 tabs baclofen 10 mg tablet 10 mg PO BID PRN muscle spas m #60 09/13/25 Rx tabs tramadol 50 mg tablet 50 mg PO BID PRN pain #60 ta bs 09/13/25 Rx Allergies Allergy/AdvReac Type Severity Reaction Status Date / Time No Known Drug Allergies Allergy Verified 06/11/25 08:18 Exam Constitutional Documenting provider has reviewed patient's vital signs: yes Common normals: no apparent distress, oriented x3 and alert General appearance: cooperative HENMT Common normals: normocephalic, hearing grossly normal bilaterally and moist oral mucous membranes Head and scalp: normocephalic Eye Common normals: PERRL Pupil: PERRL Neck & C-Spine Common normals: full ROM General: normal visual inspection Chest Common normals: inspection of chest normal Respiratory Common normals: normal respiratory effort, no retractions and no use of accessory muscles Back & Pelvis Lumbar spine/lower back: lumbar ROM normal and straight leg raise negative bilaterally; no pain with ROM and no lumbar spinal tenderness Sacroiliac joints: SI joint(s) abnormal Other: right sij positive angel(patricks), gaenslens, thigh thrust, compression test Neuro Common normals: oriented x3 Sensorium/orientation: alert Psych Common normals: mental status grossly normal, thought process normal, cooperati ve, affect normal, speech normal and activity/motor behavior normal Speech: normal speech Thought process: normal thought process Results Additional Findings Additional findings: If on a controlled substance or opioids, I have checked an [place] report on this patient and there are no aberrancies noted in the prescribing history.??If on a controlled substance or opioid a drug screen was completed and reviewed within the last year, and if there has not been a drug screen completed we ordered one today to monitor higher risk, state monitored pain medication use. As part of providing excellent, safe, comprehensive care, the following was completed at our patient's visit: 1. A medication reconciliation and review to ensure accurate knowledge of current/active medications, including asking our patients to inform us about any penl-ene-xvocval medications or herbal remedies/nutritional supplements/alternative remedies. 2. A review to specifically ensure our patients have had annual screening for screening for depression, screening for tobacco use, and screening for unhealthy alcohol use. For concerning screenings had a discussion with the patient, provided patient education, and recommended follow-up with primary care provider when appropriate. If patient noted with a risk of falling, they received education on strength, gait, and balance training to prevent future risk of falling. Portions of this note may have been carried over from the previous visit and updated as appropriate. Please note this office utilizes paper charting in addition to the electronic medical record. A list of current medications, vitals, and PMH is available there as the clinical staff outside of myself do not have access to [employer] charting during the clinic day operations. As part of providing quality comprehensive care the current medications, vitals, and PMH were reviewed in the paper chart. Assessment and Plan Assessment and Plan (1) Sacroiliitis: (2) Lumbar stenosis with neurogenic claudication: (3) Chronic prescription opiate use: Plan The patient has had over 3 months of moderate to severe low back and right SIJ pain with functional impairment and inadequate response to conservative care including NSAIDS (unless there are contraindication such as concurrent blood thinners), multiple oral or topical pain medications, and home exercise program/physical therapy.? Patient has completed >6 weeks of guided home exercise program and/or formal physical therapy program without relief of their symptoms.? The Oswestry Disability Index was completed, and the patient scored a 31%.? repeat right SIJ injection fluoroscopy continue baclofen 10mg bid prn pain/spasms and tramadol 50-100mg daily as needed moderate-severe pain continue HEP as tolerated f/u 2 weeks after procedure
== END 2025-09-13 08:55 | disposition home or self-care (01) ==
LOC: PM 08:55
PROVIDERS: PCP Nurse Practitioner Family; Visit Provider Nurse Practitioner
DX: M46.1 Sacroiliitis, not elsewhere classified (principal); M48.062 Spinal stenosis, lumbar region with neurogenic claudication; Z79.891 Long term (current) use of opiate analgesic
CPT/HCPCS: G0463

== ENCOUNTER 2025-09-24 07:06 | Day surgery (SDC) | payer MEDICARE, OTHER, SELFPAY ==
--- OUTSIDE RECORDS SUMMARY | 2025-09-24 07:09 | XMS_ITS | CCD ---
Author Organization [facility] CliniSyky Care Team Providers Care Crew Supervisor Name Role Phone EMRE STAPLETON Unavailable [...] DR YULI Nguyen Attending Unavailable MARTHA, DR ULIS Becker Primary Care Unavailable LAKSHMIPATHY ., NARHARVINDER Admitting Johanny vailable LAKSHMIPATHY ., MORRIS Attending Johanny vailable MARTHA, DR LUIS Becker Primary Care Unavailable AMBERSON, DR YOUSUF Ferguson Consulting Unavailable MARTHA, DR [...] LEES ., DR YULI Nguyen Attending Unavailable AMBERSON, DR YOUSUF Ferguson Consulting Unavailable THOMAS, DR [...] Wiley Price MD Primary Care Provider [phone] Wiley Price MD Primary Care Provider [phone] Giradhaitis , Andrius Yo Attending Unavailable Giedraitis [...] Attending Unavailable DUSTY NASSAR Attending Unavailable DUSTY NSASAR Attending Unavailable Kimber Price MD Unavailable Wiley Price MD Primary Care Provider [phone] Allergies Allergy ClassificationReported Allergen(s)Allergy TypeDate of OnsetReaction(s) Facility (1 source)ALLERGIES NOT ON FILE; Translations: [ALLERGIES NOT ON FILE]Propensity to adverse reactions (disorder)[facility] Repository Medications Current Medications MedicationDrug Class(es)DatesSig (Normalized)Sig (Original)amoxicillin 875 mg / clavulanate 125 mg oral tablet (1 source)Penicillin-class AntibacterialStart: 09-13-2123zspa 1 tablet by mouth every twelve hoursAmoxicillin-Pot [...] mg oral tablet (20 sources)gamma-Aminobutyric Acid-ergic AgonistStart: 53-63-9717fvdppxcr (Lioresal) 10 MG tablet every 12 (twelve) [...] 300 mg oral capsule (10 sources)Cephalosporin AntibacterialStart: 71-18-6696nnqr 1 capsule by mouth in the morningcefdinir [...] / methylsulfonylmethane 167 mg oral tablet (20 sources)Wfflcivkpxu-Vsrxhnbzwhv-MHS (Wgcdpu-Euisq-OKU-Double Str) 500-400-167 MG tablet every 12 (twelve) hours Active1 ml denosumab 60 mg/ml prefilled syringe (20 sources)RANK Ligand Inhibitordenosumab (Prolia) 60 MG/ML solution prefilled syringe as directed Subcutaneous ActiveFish Oils (5 sources)take 1 capsule by mouth once dailyFish Oil 1000 MG 1 capsule Orally Once a day EuvdbzJntuni-Xtbv-YVH-Es-S-AtLi-SeCu - (5 sources)Iefvde-Mltw-OFY-Yq-U-XtCn-SeCu - as directed Orally Activelosartan potassium 25 mg oral tablet (20 sources)Angiotensin 2 Receptor BlockerStart: 66-92-5149nbclcrut (Cozaar) 25 MG tablet Oral for 90 [...] 50 mg oral tablet (20 sources)Opioid AgonistStart: 68-95-8796samv 1 tablet by mouth twice daily as [...] sources)Vascular Endothelial Growth Factor InhibitorStart: 05-30-2024 End: 14-99-6324puvkzuccshp (Avastin) intravitreal chemo injection 1.25 mgStart: 05-30-2024 End: .25 mg, Intravitreal, Once PRN Procedure, Starting on Wed05/30/24 at 1038, For 1 doseLidocaine (3 sources)Antiarrhythmic, Amide Local AnestheticStart: 59-35-7256Mezvimbpe Mar, 20 mgtriamcinolone acetonide 40 mg/ml injectable suspension (9 sources)CorticosteroidStart: 90-05-9351Fjtjlfl-40 Mar, 40 mg Problems Active Problems Problem ClassificationProblemDateDocumented DateEpisodic/ChronicCataract (20 sources)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; Translations: [Other secondary cataract, right eye]Onset: 050778-78-4461AqkmuqgTtqzpnbtn of lipid metabolism (6 sources)Hyperlipidemia; Translations: [Hyperlipidemia, unspecified]Chronic Diverticulosis and diverticulitis (6 sources)Diverticular disease of colon; Translations: [Diverticulosis of colon]ChronicEssential hypertension (8 sources)Essential hypertension; Translations: [Essential (primary) hypertension]Onset: 49-35-6773MxmniciAedof valve disorders (6 sources)Heart murmur; Translations: [Cardiac murmur, unspecified]Episodic Menopausal disorders (2 sources)Atrophy of vagina; Translations: [Postmenopausal atrophic vaginitis] 98-86-0911GoyigvaLmupxdsnpjf deficiencies (5 sources)Vitamin D deficiency; Translations: [Vitamin D deficiency, unspecified]ChronicOsteoarthritis (1 source)Unilateral primary osteoarthritis, right hip; Translations: [UNI PRIM OSTEOARTHRITIS RT HIP]Onset: 63-63-8842JsoclhaYgwfgjkirswx (5 sources)Age-related osteoporosis without current pathological fracture; Translations: [AGE-REL OSTEOPOR W/OCURR PATH FX]Onset: 50-99-4144BnjibfwNghuh acquired deformities (1 source)Other forms of scoliosis, lumbar region; Translations: [OTHER FORMS SCOLIOSIS LUMBAR REGION]Onset: 00-43-6799ZemdthnZilpb acquired deformities (4 sources)Scoliosis, unspecified; Translations: [SCOLIOSIS UNSPECIFIED]Onset: 04-24-4955DozwquvItone acquired deformities (1 source)Other forms of scoliosis, site unspecified; Translations: [OTHER FORMS SCOLIOSIS SITE UNS]Onset: 20-35-8144NmycyutTbtcf acquired deformities (5 sources)Scoliosis deformity of spine; Translations: [Scoliosis, unspecified] ChronicOther aftercare (3 sources)Other salvage determiner (current) drug therapy; Translations: [OTH POWER PL[employer] ELECT[employer]ICIAN CURRENT DRUG THERAPY]Onset: 50-30-1423PbmgdsesHozkf bone disease and musculoskeletal deformities (5 sources)Osteopenia; Translations: [Other specified disorders of bone density and structure, unspecified site]EpisodicOther bone disease and musculoskeletal deformities (6 sources)Other specified disorders of bone density and structure, unspecified site; Translations: [OTH D/O BONE DEN STRUCT UNS SITE]Onset: 61-51-2696Wruwvdus Other circulatory disease (5 sources)Elevated blood-pressure reading without diagnosis of hypertension; Translations: [Elevated blood-pressure reading, without diagnosis of hypertension]EpisodicOther circulatory disease (1 source)Elevated blood-pressure reading, without diagnosis of hypertension; Translations: [Elevated blood pressure reading]EpisodicOther connective tissue disease (1 source)Pain in right lower leg; Translations: [PAIN IN RIGHT LOWER LEG]Onset: 37-79-1360JebirmnsBwqme hereditary and degenerative nervous system conditions (1 source)Other dystonia; Translations: [OTHER DYSTONIA]Onset: 03-77-4041Lyjzoat Other nervous system disorders (6 sources)Chronic pain; Translations: [Other chronic pain]ChronicOther nervous system disorders (2 sources)Other chronic pain; Translations: [OTHER CHRONIC PAIN]Onset: 21-90-6709BbdizloZjuyn nervous system disorders (4 sources)Other specified mononeuropathies of right lower limb; Translations: [OTH SPEC MONONEUROPATH RT LOW LIMB]Onset: 93-82-7555UgmpyzhHsrve nervous system disorders (1 source)Other specified mononeuropathies; Translations: [OTHER SPECIFIED MONONEUROPATHIES]Onset: 32-97-3518GcdoixfDodvt non-traumatic joint disorders (5 sources)Arthralgia of the pelvic region and thigh; Translations: [Pain in right hip]EpisodicOther non-traumatic joint disorders (6 sources)Pain in left shoulder; Translations: [PAIN IN LEFT SHOULDER]Onset: 85-39-4640UmzgvtuhVrand non-traumatic joint disorders (6 sources)Pain in right hip; Translations: [PAIN IN RIGHT HIP]Onset: 03-12-2022 EpisodicOther screening for suspected conditions (not mental disorders or infectious disease) (3 sources)Encounter for screening mammogram for malignant neoplasm of breast; Translations: [Patient encounter status]Onset: 933123-39-4508JfothtrhVflad upper respiratory infections (1 source)Acute maxillary sinusitis, unspecifiedEpisodicProlapse of female genital organs (2 sources)Midline cystocele; Translations: [Cystocele, midline]05-24-2025 ChronicResidual codes; unclassified (7 sources)Asymptomatic menopausal state; Translations: [Menopause]Onset: 44-46-2779TdrxaehcNfjylbv detachments; defects; vascular occlusion; and retinopathy (20 sources)Exudative age-related macular degeneration; Translations: [Exudative age-related macular degeneration, left eye, with active choroidal neovascularization]Onset: 10-11-2023 Resolved: 620083-90-0926XxtqrjfBrjhjcxzqex; intervertebral disc disorders; other back problems (16 sources)Other spondylosis with radiculopathy, lumbar region; Translations: [Spondylosis without myelopathy or radiculopathy, lumbar region]Onset: 40-50-9736ChpqedgCzzabgrsryv; intervertebral disc disorders; other back problems (10 sources)Radiculopathy, lumbar region; Translations: [Intervertebral disc disorders with radiculopathy, lumbar region]Onset: 48-31-2619Mgyouzxz Unclassified (1 source)MACULAR PUCKER RIGHT EYE / MACULAR PUCKER RIGHT EYE()Onset: 04-27-2017 Unclassified (4 sources)LOW BACK PAIN, UNSPECIFIED; Translations: [LOW BACK PAIN, UNSPECIFIED]Onset: 15-26-4838Kojoukennyxa (1 source)CONTACT W/AND (SUSP) EXPOS COVID-19; Translations: [CONTACT W/AND (SUSP) EXPOS COVID-19]Onset: 09-03-2022 Past or Other Problems Problem ClassificationProblemDateDocumented DateEpisodic/ChronicInflammation; infection of eye (except that caused by tuberculosis or sexually transmitteddisease) (20 sources)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; Translations: [Unspecified blepharitis right eye, upper and lower eyelids]Onset: 262174-25-8555HyzeitcvGzjey connective tissue disease (5 sources)Other muscle spasm; Translations: [OTHER MUSCLE SPASM]Onset: 25-48-3725OzejtnhwZboub connective tissue disease (1 source)Muscle wasting and atrophy, not elsewhere classified, unspecified site; Translations: [MUSCLE WASTING ATROPHY NEC UNS SITE]Onset: 05-21-2022 EpisodicOther connective tissue disease (1 source)Sarcopenia; Translations: [SARCOPENIA]Onset: 31-42-8142GriwkkmaGstwl eye disorders (20 sources)Dry eyes; Translations: [Dry eye syndrome of bilateral lacrimal glands]Onset: 472563-73-9229YwsfbkacDmkqlazeokpc (1 source)MACULAR PUCKER RIGHT EYE; Translations: [MACULAR PUCKER RIGHT EYE] Onset: 76-74-3413Lqpzeyhbkyua (1 source)LOW BACK PAIN, UNSPECIFIED; Translations: [LOW BACK PAIN, UNSPECIFIED] Onset: 47-77-3995Buzgb infection (6 sources)Disease caused by 2019-nCoV; Translations: [COVID-19] Results Test NameValueInterpretationReference RangeFacilityLeft eye Ophthalmologic treatmenton 26-93-9567QQED HealthcareRadiology Study observation (narrative)[facility] HealthcareOptical coherence tomography study reporton 92-96-7276ZKLA Healthcare Radiology Study observation (narrative)[facility] HealthcareIntravitreal Injection, Pharmacologic Agent - OD - Right Eyeon 89-73-5446TESA HealthcareRadiology Study observation (narrative)[facility] HealthcareOptical coherence tomography study report on 84-93-7041YFDIFormerly [facility], [facility] HospitalRadiology Study observation (narrative)[facility] HealthcareIntravitreal Injection, Pharmacologic Agent - OD - Right Eyeon 18-64-6380CVAGCarondelet HealthRadiology Study observation (narrative)[facility] HealthcareLeft eye Ophthalmologic treatmenton 65-88-4957ETAACarondelet Health Radiology Study observation (narrative)[facility] HealthcareOptical coherence tomography study reporton 97-06-3584JRYEFormerly [facility], [facility] HospitalRadiology Study observation (narrative)[facility] HealthcareIntravitreal Injection, Pharmacologic Agent - OD - Right Eyeon 57-49-3038HXTPCarondelet HealthRadiology Study observation (narrative)[facility] HealthcareOptical coherence tomography study report on 93-41-1367QXJRFormerly [facility], [facility] HospitalRadiology Study observation (narrative)[facility] HealthcareIntravitreal Injection, Pharmacologic Agent - OD - Right Eyeon 21-80-1179GMJRCarondelet HealthRadiology Study observation (narrative)[facility] HealthcareOptical coherence tomography study reporton 78-26-8964BVZWThedacare Medical Center [facility] eye Ophthalmologic treatmenton 46-46-3741IUKJCarondelet Health Radiology Study observation (narrative)[facility] HealthcareOptical coherence tomography study reporton 57-14-6556Bcewgfblv Study observation (narrative)[facility] eye Ophthalmologic treatmenton 03-33-7693SCFTCarondelet HealthRadiology Study observation (narrative)[facility] HealthcareOptical coherence tomography study reporton 16-07-7179SIRSFormerly [facility], [facility] HospitalRadiology Study observation (narrative)[facility] eye Ophthalmologic treatmenton 32-77-7000XUXUCarondelet HealthRadiology Study observation (narrative)[facility] HealthcareOptical coherence tomography study reporton 90-33-2577ZALJFormerly [facility], [facility] Radiology Study observation (narrative)[facility] eye Ophthalmologic treatmenton 87-45-6611SHFZCarondelet HealthRadiology Study observation (narrative)[facility] HealthcareOptical coherence tomography study reporton 68-85-9131MFIVECU Health North HospitalRadiology Study observation (narrative)[facility] Fbbhkwaytj09hm 99-38-983940Snnox with patient. Explained that I had reviewed her imaging with Dr. Lopez last week. He does not recommend fusion surgery or decompressive surgery but thinks SCS may be reasonable option. Briefly discussed procedure for SCS. Patient will check to see if her pain management provider does this. If not, she will call back and I can refer her to someone who does SCS.[place] [address]on 83-73-878644Lslz message for patient on identified voicemail that [...] her back on Wednesday to follow-up regarding this.Wilson HealthTelephoneon 05-14-2023 [id number] Letty Coffey 1945 F Date Provider Department Center 05/14/2023 [facility], [facility] SURG Second Fl Family History Problem Relation Age of Onset Other Mother Stomach cancer Father Family Status - Relation Status Age at Mother FatherNormalUniversLake County Memorial Hospital - WestConsulton 76-14-8114Ndypzyk [id number] Letty Coffey 1945 F Date Provider Department Center 05/13/2023 148-SALMA, [facility] SURG Second Fl Family History Problem Relation Age of Onset Other Mother Stomach cancer Father Family Status - Relation Status Age at Mother Father Level of Service:47788 [place] OFFICE/OUTPATIENT NEW MODERATE MDM 45-59 MINUTES Reason for Visit and Comments: Consult [484] - Pt is here for a CO visit for Spinal Stenosis.[place] [address]on 20-33-622973JCU for pt to call clinic to schedule with or Dr. Lopez for Lunbar Stenosis. Imaging requested from [facility] HealthMRI LSPINE WO CONon 08-06-3614YEV LSPINE WO CONEXAMINATION: MRI LSPINE WO CON [...] Electronically authenticated by: OFE COFFEY Date: 2023-02-10 07:16City HospitalCALCIUMon 62-06-5518Dxffgqx [Mass/Vol]9.7 mg/dLNormal8.5-10.1 The [facility] HospitalComment on above:Performed By: #### CA, CREA ####[facility] [address] [place] [id number]. Holly Fisher CREATININEon 49-73-5581Qtgtrgyjop [Mass/Vol]0.62 mg/dLNormal0.55-1.02The [facility] HospitalComment on above:Performed By: #### CA, CREA ####[facility] [address] [place] [id number]. Holly ChangEGFR- AF LUXEMBOURGER>60Normal>=60The [facility]wood HospitalComment on above:Performed By: #### CA, CREA ####[facility] [address] [place] [address]Dr. Holly ChangEGFR-NON AF LUXEMBOURGER>60Normal>=60[facility] Comment on above:Performed By: #### CA, CREA ####[facility] [address] [place], [place] [address]Dr. Holly FisherCovid-19 PCR ([facility])on 26-08-8176UOYE-CoV-2 (COVID-19) RNA FRED+probe Ql (Unsp spec)Not detectedNormalNOT DETECTEDThe Parkwood HospitalComment on above:Result Comment: This test is not yet approved or cleared by the [place] FDA. When there are no FDA-approved or cleared tests available, and other criteria are met, FDA can make tests available under an emergency access mechanism called an Emergency Use Authorization (EUA). The EUA for this test is supported by the [employer] Language Professor of Health and Human Service's (HHS's) declaration [...] symptoms consistent with SARS-CoV-2.Performed By: #### CVDTB ####[facility] [address] [place] [id number]. Holly FisherCovid-19 PCR ([facility])on 93-55-7790PNNM-CoV-2 (COVID-19) RNA FRED+probe Ql (Unsp spec)Not detectedNormalNOT DETECTEDThe [facility] on above:Result Comment: This test is not yet approved or cleared by the [place] FDA. When there are no FDA-approved or cleared tests available, and other criteria are met, FDA can make tests available under an emergency access mechanism called an Emergency Use Authorization (EUA). The EUA for this test is supported by the [place] of Health and Human Service's (HHS's) declaration [...] consistent with SARS-CoV-2.Performed By: #### CVDTB #### [facility] [address] [place] [address] Dr. Holly FisherCALCIUMon 69-96-7523Imsbgri [Mass/Vol]9.0 mg/dLNormal8.5-10.1The [facility] Hospital at Southwoodsment on above:Performed By: #### XAVIER JOSHI ####[facility] [address] [place] [id number]. Holly Fisher CREATININEon 74-08-1526Jkxowwkhel [Mass/Vol]0.65 mg/dLNormal0.55-1.02[facility] on above:Performed By: #### XAVIER JOSHI #### [facility] [address] [place] [address] Dr. Barrera ChangEGFR-AF LUXEMBOURGER>60Normal>=60The [facility] HospitalComment on above:Performed By: #### XAVIER JOSHI #### [facility] [address] [place] [address] [address] Holly AddisonGFR-NON AF LUXEMBOURGER>60Normal>=60The [facility] HospitalComment on above:Performed By: #### XAVIER JOSHI #### [facility] [address] [place] [address] [address] Holly FisherXR LSPINE W_OBLS AND FLEX_EXTon 59-19-4055SE LSPINE W_OBLS AND FLEX_EXTEXAMINATION: XR LSPINE W_OBLS [...] Electronically authenticated by: YOUSUF ORTIZ Date: 2022-05-04 08:47Norm[address] [facility] AUTO DIFFon 77-31-5807UGIR #0.1 103/ulNormal0.0-0.1[facility] Memorial HospitalComment on above:Performed By: #### CBC ####[facility] [address] [place] [address]DrGómez FisherBasophils/100 WBC (Bld)1.0 %Normal0.2-2.0[facility] Memorial HospitalComment on above:Performed By: #### CBC ####[facility] [address] [place] [address]DrGómez AddisonO #0.2 103/ulNormal0.0-0.7The [facility] HospitalCommymichigan medical center alpena on above:Performed By: #### CBC ####[facility] [address] [place], [place] [address]Dr.Yilan ChangEosinophils/100 WBC (Bld)2.4 %Normal 0.9-7.0The [facility] HospitalComment on above:Performed By: #### CBC ####[facility] [address] [place], [place] [address]Dr.Holly Fisher Erythrocyte distribution width (RBC) [Ratio]14.4 %Vyhlsg81.0-15.0The [facility] HospitalComment on above:Performed By: #### CBC ####[facility] [address] [place], [place] [address]Dr.Holly FisherHematocrit (Bld) [Volume fraction]41.1 %Dutndq85.0-48.0The [facility] HospitalComment on above:Performed By: #### CBC ####[facility] [address]sp[address] [place], [place] [address]Dr.Holly ChangHemoglobin (Bld) [Mass/Vol]13.4 g/dL Vatgpi35.0-16.0The [facility] HospitalComment on above:Performed By: #### CBC ####[facility] [address] [place], [place] [address]Dr. Holly ChangIG #0.03 10e3/ulNormal0.00-0.03The [facility] HospitalComment on above: Performed By: #### CBC ####[facility] Azegwmvg[address] [place], [place] [address]Dr.Holly ChangIG %0.5 %Normal0.0-0.5The [facility] HospitalComment on above:Performed By: #### CBC ####[facility] [address] [place], [place] [address]Dr.Holly ChangLYMPH #1.5 103/ulNormal1.2-3.8The [facility] HospitalComment on above:Performed By: #### CBC ####[facility] [address] [place], [place] [address]Dr. Holly ChangLymphocytes/100 WBC (Bld)24.3 %Xbgjsl48.5-60.0The [facility] Comment on above:Performed By: #### CBC ####[facility] [address] [place] [address]Dr.Holly FisherMANUAL DIFF REQNONormalThe Parkwood HospitalComment on above:Performed By: #### CBC ####[facility] [address] [place], [place] [address]Dr.Holly FisherH (RBC) [Entitic mass]30.3 ogVcllts99.7-34.0The [facility] HospitalComment on above: Performed By: #### CBC ####[facility] Ks[address] [place], [place] [address]Dr.Holly FisherHC (RBC) [Mass/Vol]32.6 g/dLNormal 29.9-35.2The [facility] HospitalComment on above:Performed By: #### CBC ####[facility] [address] [place], [place] [address]Dr. Holly FisherV (RBC) [Entitic vol]93.0 fFZziosw90.0-99.0The [facility] Comment on above:Performed By: #### CBC ####[facility] [address]rdx[address]oc[address] [place], [place] [address]Dr.Holly FisherMONO #0.5 103/ulNormal0.3-0.8 The [facility] HospitalComment on above:Performed By: #### CBC ####[facility] [address] [place], [place] [address]Dr.Holly Fisher Monocytes/100 WBC (Bld)7.3 %Normal1.7-12.0The [facility] HospitalComment on above: Performed By: #### CBC ####[facility] [address] [place], [place] [address]Dr.Holly FisherNEUT #4.1 103/ulNormal1.4-6.5The [facility] HospitalComment on above:Performed By: #### CBC ####[facility] [address]ps[address] [place], [place] [address]Dr.Holly FisherNeutrophils/100 WBC (Bld)64.5 %Fpfkac87.0-75.0The [facility] HospitalComment on above:Performed By: #### CBC ####[facility] [address] [place] [address]Dr.Holly FisherPlatelet mean volume (Bld) [Entitic vol]10.5 fLNormal9.5-13.5 The [facility] HospitalCommymichigan medical center [facility] on above:Performed By: #### CBC ####[facility] [address] [place] [address]Dr.Holly XeluiDAT807 103/pbZxdzrv637-231Kkm [facility] HospitalCommymichigan medical [facility] on above:Performed By: #### CBC ####[facility] [address] [place] [address]Dr. Holly ChangRBC4.42 106/ulNormal4.20-5.40The [facility] HospitalCommymichigan medical center [facility] on above: Performed By: #### CBC ####[facility] [address] [place] [address]Dr.Holly ChangWBC6.3 103/ulNormal4.0-11.0The [facility] HospitalCommymichigan medical center [facility] on above:Performed By: #### CBC ####[facility] [address] [place], [place] [address]Dr.Holly FisherLIPID PROFILEon 94-80-3661XSSP-HDL RATIO NORMSOhioHealthCommymichigan medical center [facility] on above:Result Comment: 3.3 - 4.4 LOW RISK 4.4 - 7.1 AVERAGE RISK 7.1 - 11.0 MODERATE RISK >11.0 HIGH RISKPerformed By: #### LIPID, CMP #### [facility] [address] [place] [address] [address] Holly FisherCholesterol [Mass/Vol]263 mg/dLCritically high<=200[facility] on above:Performed By: #### LIPID, CMP #### [facility] [address] [place] [address] [address] Holly FisherCholesterol in HDL [Mass/Vol]63 mg/dLCritically fjnl63-30Xla [facility] on above:Performed By: #### LIPID, CMP #### [facility] [address] [place] [address] [address] Holly FisherCholesterol in LDL [Mass/Vol]160.2 mg/dLCity HospitalComment on above:Performed By: #### LIPID, CMP #### [facility] [address] [place] [address] Dr. Holly Lora.total/Cholesterol in HDL [Mass ratio]4.2 {ratio} NormalThe Parkwood HospitalComment on above:Performed By: #### LIPID, CMP #### [facility] [address] [place] [address] Dr. Holly Rock NORMAL> or = 60 mg/dl - LOW CARDIOVASCULAR RISK <40 mg/dl - HIGH CARDIOVASCULAR RISKCity HospitalComment on above:Performed By: #### LIPID, CMP #### [facility] [address] [place] [address] Dr. Holly Carson CALC NORMALSEE BELOWCity HospitalComment on above:Result Comment: <100 mg/dl OPTIMAL 100 - 129 mg/dl NEAR OR ABOVE OPTIMAL 130 - 159 mg/dl BORDERLINE HIGH 160 - 189 mg/dl HIGH >190 mg/dl VERY HIGH Performed By: #### LIPID, CMP #### [facility] [address] [place] [address] Dr. Holly FisherTriglyceride [Mass/Vol]199 mg/dLCritically high<=150The [facility] HospitalComment on above:Performed By: #### LIPID, CMP #### [facility] [address] [place] [address] Dr. Holly FisherVLDL CALC39.8 mg/dLCity HospitalComment on above: Performed By: #### LIPID, CMP #### [facility] [address] [place] [address] Dr. Holly FisherMG MAMM SCREEN 3D SHERRIE CADon [id number] MAMM SCREEN 3D SHERRIE CAD Patient: LETTY COFFEY Exam Date: 03/05/2022 : 1945 Gender:F Ordering : DR LUIS THOMAS M.D. Admission #: [id number] Family : Order #: [id number] CLICK HERE TO VIEW EXAM RADIOLOGY REPORT [...] Treatments None Family Cancers None LOCATION: [facility] BREAST COMPOSITION: Scattered areas fibroglandular density. [...] by: Yousuf Ortiz MD on 03/05/2022 at 09:55City HospitalPROF 14(COMP METB)on 74-09-6874Bosmulk [Mass/Vol]3.9 g/dLNormal3.4-5.0[facility] on above:Performed By: #### LIPID, CMP #### [facility] [address] [place] [address] Dr. Holly FisherAlbumin/Globulin [Mass ratio]1.1 {ratio}NormalThe [facility] on above:Performed By: #### LIPID, CMP #### [facility] [address] [place] [address] Dr. Holly Alonzo [Catalytic activity/Vol]54 U/INdzyky65-186Iaw [facility] on above:Performed By: #### LIPID, CMP #### [facility] [address] [place] [address] Dr. Holly Miller [Catalytic activity/Vol]22 U/DYpbtgy01-48Wxu [facility] on above:Performed By: #### LIPID, CMP #### [facility] [address] [address] [address] Holly FisherAnion gap [Moles/Vol]12.5 mmol/LNormalTri[facility] Comment on above:Performed By: #### LIPID, CMP #### [facility] [address] [address] [address] Holly FisherAST [Catalytic activity/Vol]14 U/LCritically tgo91-45Szi [facility] HospitalComment on above:Performed By: #### LIPID, CMP #### [facility] [address] [address] [address] Holly FisherBilirubin [Mass/Vol]0.4 mg/dLNormal0.2-1.0[facility] Comment on above:Performed By: #### LIPID, CMP #### [facility] [address] [address] [address] Holly FisherCalcium [Mass/Vol]8.6 mg/dLNormal8.5-10.1[facility] Comment on above:Performed By: #### LIPID, CMP #### [facility] [address] [address] [address] Holly FisherChloride [Moles/Vol]106 mmol/EMzsxau75-441Sfe [facility] Comment on above:Performed By: #### LIPID, CMP #### [facility] [address] [address] [address] Holly FisherCO2 [Moles/Vol]26.8 mmol/XCnuhid55.0-32.0[facility] Comment on above:Performed By: #### LIPID, CMP #### [facility] [address] [address] [address] Holly FisherCreatinine [Mass/Vol]0.60 mg/dLNormal0.55-1.02[facility] HospitalComment on above:Performed By: #### LIPID, CMP #### [facility] [address] [address] [address] Holly AddisonGFR-AF LUXEMBOURGER>60Normal>=60[facility] HospitalComment on above:Performed By: #### LIPID, CMP #### [facility] [address] [address] [address] Holly AddisonGFR-NON AF LUXEMBOURGER>60Normal>=60The [facility] HospitalComment on above:Performed By: #### LIPID, CMP #### [facility] [address] [address] [address] Holly FisherGlobulin (S) [Mass/Vol]3.4 g/dLNormalThGeorgetown Behavioral HospitalComment on above:Performed By: #### LIPID, CMP #### [facility] [address] [address] [address] Holly FisherGlucose [Mass/Vol]98 mg/hKZmvjiu05-342Tlw [facility] Comment on above:Performed By: #### LIPID, CMP #### [facility] [address] [address] [address] Holly FisherPotassium [Moles/Vol]4.3 mmol/LNormal3.5-5.1[facility] Comment on above:Performed By: #### LIPID, CMP #### [facility] [address] [address] [address] Holly FisherProtein [Mass/Vol]7.3 g/dLNormal6.4-8.2[facility] Comment on above:Performed By: #### LIPID, CMP #### [facility] [address] [address] [address] Holly FisherSodium [Moles/Vol]141 mmol/KZgaosi958-415Bjx [facility] Comment on above:Performed By: #### LIPID, CMP #### [facility] [address] [address] [address] Holly FisherUrea nitrogen [Mass/Vol]14.0 mg/dLNormal7.0-18.0[facility] HospitalComment on above:Performed By: #### LIPID, CMP #### [facility] [address] [address] [address] Holly FisherUrea nitrogen/Creatinine [Mass ratio]23.3 mg/mgNormalThe [facility] HospitalComment on above:Performed By: #### LIPID, CMP #### [facility] [address] [place] [address] Dr. Holly FisherXR DEXA BONE DENSITYon 40-64-1635IO DEXA BONE DENSITYEXAMINATION: XR DEXA BONE DENSITY, [...] Electronically authenticated by: YOUSUF ORTIZ Date: 2022-03-05 10:00City HospitalHistory and Physicalon 57-85-9900KKO IP Note OR Car Park Attendant [facility] HospitalOPERATIVE REPORTon 19-05-3106CYBJHBFRW REPORTMARIETTA MEMORIAL HOSPITALPATIENT NAME: LETTY COFFEY : 49[facility] REC NO: [id number] ROOM:ACCOUNT NO: [id number] ADMISSION DATE: 04/27/17PHYSICIAN: EMRE STAPLETONDATE OF PROCEDURE: [...] used to engage the membrane in a jebha-nhd-lozn technique andthe membrane was elevated from the [...] without complications.EMRE Llanes DABBSD :04/27/2017 9:59:31 CD/V_VGPRS_TJob#: [id number] Doc#: [id number] Hospital Vital Signs Date TimeVital SignValuePerforming JdprclzygRuucvubi92-62-0817 10:16Body emacot63.04 kgKathlterrance Velez DO Work Phone: NOBoone Hospital CenterSrhhklafxg67-69-7675 10:16-0400Diastolic blood chsbyvbo48 mm[Hg]Kriss Velez DO Work Phone: noWV Epxpcycshe52-45-1464 10:16-0400Systolic blood ythycwuz799 mm[Hg]Kriss Velez DO Work Phone: noWV Uaytxcdats06-51-3386 09:15-0400Body smnhyg807.75 cmLuis Thomas Other [employer] Other 766377-64-4078 09:15-0400Body mass index (BMI) [Ratio] 30.95 kg/s2YrewomLuis Thomas Other [employer] Other 10-04-2023 09:15-0400Body .5 [degF]Luis Thomas Other [employer] Other 087773-35-6927 09:15-0400Body iqniox39.02 kgLuis Thomas Other [employer] Other 10-04-2023 09:15-0400Diastolic blood yfsqenpk68 mm[Hg] Luis Thomas Other [employer] Other 10-04-2023 09:15-0400Systolic blood tkeyooub128 mm[Hg] Luis Thomas Other [employer] Other 07-18-2023 15:00-0400Body wvfjgy956.75 cmLuis Thomas Other [employer] Other 07-18-2023 15:00-0400Body mass index (BMI) [Ratio] 31.49 kg/a2UjswihLuis Thomas Other [employer] Other 07-18-2023 15:00-0400Body .38 kgCharlettebentley Thomas Other [employer] Other 07-18-2023 15:00-0400Diastolic blood aceydppm77 mm[Hg] Luis Martha Other [employer] Other 07-18-2023 15:00-0400Systolic blood sozliddi869 mm[Hg] Luis Martha Other [employer] Other 06-22-2023 08:40-0400Body mulhxe767.75 cmEj Martha Other [employer] Other 06-22-2023 08:40-0400Body mass index (BMI) [Ratio] 31.67 kg/m2Ej Thomas Other [employer] Other 06-22-2023 08:40-0400Body qulwxh70.83 kgDadenys Thomas Other [employer] Other 06-22-2023 08:40-0400Diastolic blood cbypjgvs34 mm[Hg] Ej Martha Other [employer] Other 06-22-2023 08:40-0400Systolic blood mm[Hg] Ej Martha Other [employer] Other 04-27-2023 11:00-0400Body gxhbus956.75 cmShainasam Martha Other [employer] Other 04-27-2023 11:00-0400Body mass index (BMI) [Ratio] 32.21 kg/z3Tunzsr Martha Other [employer] Other 04-27-2023 11:00-0400Body uruuax69.19 kgShainasam Thomas Other [facility] [employer] Other 04-27-2023 11:00-0400Diastolic blood ianaqryf26 mm[Hg] Luis Martha Other [facility] [employer] Other 04-27-2023 11:00-0402XkD7% (BldA) [Mass fraction]97 % Luiskriss Thomas Other [facility] [employer] Other 04-27-2023 11:00-0400Systolic blood essbbawm720 mm[Hg] Luis Martha Other [facility] [employer] Other Encounters Encounter DateEncounter TypeCare ProviderFacilityStart: 08-08-2025 End: 45-26-9731Aoxpox flowsheetJonathan D Zahler DO Work Phone: [facility] EyeStart: 08-08-2025 End: 55-36-0310Jrszrp flowsheetJonathan D Zahler DO Work Phone: [facility] EyeStart: 08-08-2025 End: 39-30-7318gtoncvfckaUCYKKUGE D LARRYHLERNOMS HealthcareComment on above: Macular Degeneration; Retinal InjectionStart: 07-04-2025 End: 06-81-3227Cdepbf flowsheetJonathan D Zahler DO Work Phone: [facility] EyeStart: 07-04-2025 End: 10-71-6796Kkzieq flowsheetJonathan D Zahler DO Work Phone: [facility] EyeStart: 07-04-2025 End: 51-91-5993Snhvywgz SupportJonathan D Zahler DO Work Phone: noms [facility] EyeComment on above:Macular Degeneration; Retinal InjectionStart: 06-11-2025 End: 23-20-4897eperknyaxqRoskxhr Yo Kelley MDFacility:PM [place] Start: 05-30-2025 End: 79-11-0962Yutjkd flowsheetDusty Ortizer DO Work Phone: NOL[facility] EyeStart: 05-30-2025 End: 72-77-6190Pevjly flowsheetDusty Simshler DO Work Phone: [facility] EyeStart: 05-30-2025 End: 79-67-5375Izzakh-up encounterDusty Ortizer DO Work Phone: n[facility] EyeComment on above:Follow-up; Retinal InjectionStart: 05-30-2025 End: 02-19-5617najgjtoienKPUIQFYD D ZAHLERNot AvailableStart: 05-24-2025 End: 13-78-2348Zjzkfq flowsheetKathleen E Rinkes DO Work Phone: noms Bert OBGYNStart: 05-24-2025 End: 62-17-2001Axtpos flowsheetKathleen E Rinkes DO Work Phone: noms Bert OBGYNStart: 05-24-2025 End: 53-62-6582Txhozi outpatient visit 25 minutesKathleen E Rinkes DO Work Phone: noms Bert OBGYNComment on above:Vaginal atrophy (Primary Dx); Encounter for screening mammogram for breast cancer; Cystocele, midlineStart: 05-24-2025 End: 35-43-3242ubpgbbvyksVZFEVYVQ E RINKESNot AvailableStart: 05-23-2025 End: 85-97-7475Ovrqrd flowsRobert Ortizer DO Work Phone: [facility] EyeStart: 05-23-2025 End: 50-63-9846Njzylg flowsheetDusty Simshler DO Work Phone: [facility] EyeStart: 05-23-2025 End: 36-73-5939Hgcyixnb SupportJonathan D Zahler DO Work Phone: [facility] EyeComment on above:Retinal Injection; Macular DegenerationStart: 04-18-2025 End: 16-09-4845Focbqb flowsheetJonathan D Zahler DO Work Phone: NOMS NB OPHTStart: 04-18-2025 End: 30-08-6837Xdupgp flowsheetJonathan D Zahler DO Work Phone: NOMS NB OPHTStart: 04-18-2025 End: 85-70-4079Yoarbjil SupportJonathan D Zahler DO Work Phone: NOMS NB OPHTComment on above:Retinal Injection; Macular DegenerationStart: 03-07-2025 End: 49-31-0237Cownsa flowsheetJonathan D Zahler DO Work Phone: NOMS NB OPHTStart: 03-07-2025 End: 34-99-0035Osoaiw flowsheetJonathan D Zahler DO Work Phone: NOMS NB OPHTStart: 03-07-2025 End: 35-57-9935Lcnccu-up encounterJonathan D Zahler DO Work Phone: NOMS NB OPHTComment on above:Follow-up; Macular DegenerationStart: 03-07-2025 End: 74-79-3833aqvzpnppbnQIHQFSYM D ANGELERNot AvailableStart: 02-28-2025 End: 91-16-0543Ddgtfs flowsheetJonathan D Zahler DO Work Phone: NOMS NB OPHTStart: 02-28-2025 End: 72-48-7061Oelllz flowsheetJonathan D Zahler DO Work Phone: NOMS NB OPHTStart: 02-28-2025 End: 04-70-8908Dzzrjlue SupportJonathan D Zahler DO Work Phone: NOMS NB OPHTComment on above:Retinal InjectionStart: 02-26-2025 End: 26-86-7693ruorommipfXudepkb Vytautas Giedraitis MDFacility:PM Bret[place] Start: 01-29-2025 End: 46-48-1297ntwxjdwjmyOopwopk Vytautas Giedraitis MDFacility:PM [place] Start: 01-15-2025 End: 47-50-6412aqhhwxfzlnUyorcic Vytautas Giedraitis MDFacility:PM [place] Start: 12-06-2024 End: 02-37-4341bfkksbsneeWBSDPISX D ZAHLERNot AvailableStart: 10-02-2024 End: 48-29-8585yyhxgctmnjOrmskrm Vytautas Giedraitis MDFacility:PM [place] Start: 09-26-2024 End: 86-35-5043Dcyvsz flowsheetDusty Aguilar Beamlyer DO Work Phone: NOMS NB OPHTStart: 09-26-2024 End: 11-36-3710Tsaefp flowsheetDusty Aguilar Zahler DO Work Phone: NOMS NB OPHTStart: 09-26-2024 End: 57-93-4382Bjoqzt-up encounterJociaran Simshler DO Work Phone: NOMS NB OPHTComment on above:Follow-up; Retinal Injection; Macular DegenerationStart: 09-26-2024 End: 84-00-0589bxhrxareqjGWQRJRLW D ZAHLERNot AvailableStart: 09-25-2024 End: 98-98-7823rqvgmnblchCrynfjd Vytautas Giedraitis MDFacility:PM [place] Start: 09-18-2024 End: 94-01-6375smngnbxntgDxpvnkd Vytautas Giedraitis MDFacility:PM [place] Start: 09-11-2024 End: 88-38-9910lvembviffzDceagbe Vytautas Giedraitis MDFacility:PM [place] Start: 08-21-2024 End: 47-10-2162hreobzilozUeohjpt Vytautas Giedraitis MDFacility:PM [place] Start: 07-25-2024 End: 11-30-8972Lfcapu flowsheetMariahkeeshamarj Lauren Maday DO Work Phone: noms NB OPHTStart: 07-25-2024 End: 41-67-2391Ivfhgz flowsheetMariahkeeshamarj Lauren Maday DO Work Phone: noms NB OPHTStart: 07-25-2024 End: 68-91-3968Fepddwcm SupportJonatmarj Lauren Maday DO Work Phone: noms NB OPHTComment on above:Macular Degeneration; Retinal InjectionStart: 05-30-2024 End: 64-99-8328Ljpggj flowsheetMariahkeeshamarj Lauren Maday DO Work Phone: noms OPHTStart: 05-30-2024 End: 02-14-6017Gxubsf flowsheetDusty Lauren Maday DO Work Phone: noms OPHTStart: 06-30-2023 End: 09-85-2754prslmmphdnIcxfvy Braun Other [employer] Other Start: 38-74-5076Dtipep outpatient visit 15 minutes Luis ThomasSelect [facility]: 05-18-2023 End: 20-26-3526gdxetzvjilQplcgh Braun Other [employer] Other Start: 60-06-8638Dyhxmgkuj encounterLuis ThomasSelect [facility]: 05-13-2023 End: 01-12-1427bfbexuprbvCYKVUMI [facility]: 05-13-2023 End: 57-02-7230zdxvipbucwXIEEHOM [facility]: 04-16-2023 End: 51-05-6234xycpglyhznHGGJLAG [facility]: 04-13-2023 End: 80-22-7976qbwzbyzkkwAxflee Thomas Other [employer] Other Start: 87-38-9080Kxnnjy outpatient visit 15 minutes Luis [facility]ru[facility]: 04-05-2023 End: 90-72-3805mwnzriaexkAiem Thomas Other [employer] Other start: 06-01-4084Cldycqaiy encounterDadenys ThomasSelect [facility]: 03-18-2023 End: 39-82-9381fnnqglqwfaXesi Thomas Other [facility] [employer] Other start: 07-65-2306Rduewj outpatient new 30 minutesDadenys [facility] NeurosurgeryStart: 02-09-2023 End: 58-88-3949ahpjjymayoQVSPPRMUNENN LAKSHMIPATHY .Facility:Y7Mfkfr: 02-01-2023 ambulatoryNARENDRANATH LAKSHMIPATHY .Facility:T3Ylyqs: 79-77-9653gaywvfcjmePY LUIS E BRAUNFacility:V4Chwvy: 01-28-2023 End: 67-62-8017pzafmrrixoTXASJDOPXTLI LAKSHMIPATHY .Facility:C6Cgjrp: 01-21-2023 End: 87-49-3549djmveeumhqNujskj Thomas Other [facility] [employer] Other Start: 84-87-2251Qnxpnn outpatient visit 15 minutes Luis [facility]An[facility] ClinicStart: 01-12-2023 End: 11-93-6032zzddbbjctwZBMJKZBNCUWG LAKSHMIPATHY .Facility:R5Dgfhu: 12-31-2022 End: 47-08-6078suwmcvkevvTK LUIS Rosita BRAUNFacility:M8Rhtjq: 12-28-2022 End: 35-30-2674iusadiycloAS LUIS Rosita THOMASFacility:V3Qrxvk: 12-24-2022 End: 98-41-1219drzvgmtkirTV LUIS E BRAUNFacility:K9Cddme: 10-07-2022 End: 68-26-5734mucysxuxdjHNRL RUIZ .Facility:W7Uqumi: 27-93-0542Rijvijwcl for preprocedural laboratory examinationDR YULI S LEES .[facility] Start: 09-01-2022 End: 47-27-1276bxeawlqpwcZX YULI S LEES .Facility:A8Dhemy: 08-28-2022 End: 42-21-9520kgwagivpwsUX LUIS E BRAUNFacility:K8Slgcm: 08-28-2022 End: 82-67-7565Xatgailzo for preprocedural laboratory examinationDR LUIS E BRAUNFacility:F4Imrco: 08-11-2022 End: 87-75-3690gprwriqgvnRC YULI S LEES .Facility:Y6Pvoem: 64-05-7384Pfuhjixvh for preprocedural cardiovascular examinationJILL RUIZ .[facility] Start: 08-07-2022 End: 55-74-1854rrncjzyhjaFE LUIS E BRAUNFacility:C6Chyud: 08-03-2022 End: 66-14-2601ywaqncalhsOVFZ RIUZ .Facility:X3Bhsyl: 08-03-2022 End: 88-11-7541Rvdlpljul for preprocedural cardiovascular examinationJILL RUIZ .Facility:R5Liyor: 07-30-2022 End: 60-29-2362kuqwpnxqmzEO YULI S LEES .Facility:K8Wpguh: 06-30-2022 End: 63-38-8447owzecmdgsbRX YULI S LEES .Facility:J9Vplei: 06-26-2022 End: 28-71-7445sauhuvdcvsNL LUIS E BRAUNFacility:R7Fwpbi: 06-25-2022 End: 72-25-9885oxjwngvfwwMBJU RUIZ .Facility:K1Qyzzd: 06-12-2022 End: 54-27-3820pksczkvwcvZP LUIS E BRAUNFacility:M3Hcznh: 06-09-2022 End: 79-20-7628lvcuadkzxyZD YULI S LEES .Facility:S9Mvjbl: 05-19-2022 End: 82-39-6968spvrylvquiTR YULI S LEES .Facility:A4Qekun: 05-01-2022 End: 88-23-2687eujegcwifuNY YULI LEES .Facility:K7Kbmev: 04-28-2022 End: 83-36-4511cejrttbutkJN YULI LEES .Facility:I4Hadat: 03-05-2022 End: 82-25-0553apflhsolefLC YOUSUF Ferguson WESTcility:K8Snpnq: 04-27-2017 End: 38-38-9293XamxfxadkaNDQOSCIDavid [facility] Procedures DateProcedureProcedure DetailPerforming ClinicianStart: 89-19-8066Miyckzpdrkkk njx pharmacologic agt spxJonathan D Zahler DO Work Phone: Start: 72-75-3240Pufjohyrtujo ophthalmic imaging retinaJonathan D Zahler DO Work Phone: Start: 75-09-5187Jvrgxydogyrt njx pharmacologic agt spxJonathan D Zahler DO Work Phone: Start: 05-15-2448Yykgjwmpnchb ophthalmic imaging retinaJonathan D Zahler DO Work Phone: Start: 63-81-1644Rvrwkilrhcnk njx pharmacologic agt spxJonathan D Zahler DO Work Phone: Start: 44-81-2162Gdmpwqbodclh njx pharmacologic agt spxJonathan D Zahler DO Work Phone: Start: 08-55-1390Zpwpfkvubiwb ophthalmic imaging retinaJonathan D Zahler DO Work Phone: Start: 90-72-9086Iibcvfybtgvb njx pharmacologic agt spxJonathan D Zahler DO Work Phone: Start: 49-14-8135Sleikbphyslb ophthalmic imaging retinaJonathan D Zahler DO Work Phone: Start: 06-82-6047Dthhlrdltzkc njx pharmacologic agt spxJonathan D Zahler DO Work Phone: Start: 33-50-4572Ebyfsvarflun njx pharmacologic agt spxJonathan D Larryhler DO Work Phone: Start: 33-17-2237Lqxvfsjqlgua ophthalmic imaging retinaJociaran D Angeler DO Work Phone: Start: 31-53-6669Dlrycgflvora njx pharmacologic agt spxJonathan D Larryhler DO Work Phone: Start: 55-97-6329Dlkeadpnbkxq ophthalmic imaging retinaDusty D Angeler DO Work Phone: Start: 41-69-6485Txpycyiphumj njx pharmacologic agt spxJociaran D Angeler DO Work Phone: Start: 46-23-4988Nxnhocguzlgl ophthalmic imaging retinaJociaran Ortizer DO Work Phone: Start: 39-25-7785Sqwvflmqcpud njx pharmacologic agt spxJociaran D Angeler DO Work Phone: Start: 95-85-4807Glfffhbgezwk ophthalmic imaging retinaJonatmarj D Angeler DO Work Phone: Start: 05-30-2024 End: 76-18-0646Wxjiz medical xm&eval comprhnsv estab pt 1/>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 eye with active choroidal neovascularization (HCC) (CMS/HCC)Dusty Ortizer DO Work Phone: comment on above:Follow-upStart: 55-55-6427LQGRWHHKL PATIENTCHARLES DABBSStart: 50-94-4807EMXQMYIDVPJYCA DABBSStart: 04-27-2017 Continuous pulse oximetryCHARALIZA DABBSStart: 78-42-2634NXSHMBSNN DEEP BREATHING AND COUGHINGCHARLES DABBSStart: 53-78-3055XMQABL PHYSICIAN (SPECIFY)EMRE DABBSStart: 35-51-1585UAEMMDG COMMUNICATIONCHARLES DABBSStart: 52-32-3217LKHTIQE OXYGEN ORDERS/INSTRUCTIONSCHARLES DABBSStart: 17-48-5308PHFMI SIGNSCHARLES DABBSManagement of drug regimenMarcia Martha Other Screening for malignant neoplasm of colonMarcia Thomas Other Plan of Treatment DateCare ActivityDetailAuthorStart: 06-05-2026 End: 67-72-0082Sbjypdo encounter wejqkiuuo36/09/2026 10:15 AM EDT Office Visit JUAN MPatrick Bert GARCIA [address] [place] [address] Kriss Velez DO [address] [place] [address] JUAN MPatrick Noel OBGYNStart: 08-08-2025 End: 07-00-0750Ihnmxbwr Pgsewvo5108/08/2025 9:30 AM EST Clinical Support [facility] [address] [place], [id number] Dusty Nassar DO [address] [place] [address] [facility]rivedUniversity [facility] EyeComment on above:Arrived Start: 07-04-2025 End: 15-40-2954Xglxzuns Ennrmpw6907/04/2025 11:15 AM EDT Clinical Support [facility] [address] [place] [id number] Dusty Nassar DO [address] [place] [address] ArrivedUniversity of [facility] Medical Center EyeComment on above:Arrived Start: 05-30-2025 End: 92-19-4140Ntepirsq SupportNOAlliance Health Center EyeComment on above:Arrived Start: 57-66-4894QIIBD-19 Vaccine ( season)COVID-19 Vaccine ( season)[facility] HealthcareStart: 64-91-8856Qragguwtd vaccinationInfluenza Vaccine (#1)[facility] HealthcareStart: 05-24-2025 End: 18-87-0576Bsllrad encounter procedureNOMS [facility] OBComment on above:Vaginal atrophy; Encounter for screening mammogram for breast cancerStart: 05-23-2025 End: 71-08-9363Kdfxrhnz Butulwk3705/23/2025 8:30 AM EDT Clinical Support [facility] [address] [place], [id number] Dusty Nassar, [address] [place] [address] ArrivedNOMS [facility] EyeComment on above:Arrived Start: 04-18-2025 End: 74-31-1693Ywxvjmvq Oxjbhwi2204/18/2025 8:30 AM EDT Clinical Support [facility] [address] [place] [address] Dusty Nassar, [address] [place] [address] ArrivedNOMS NB OPHTComment on above:ArrivedStart: 03-07-2025 End: 55-67-7738Hjonmoav SupportNOMS NB OPHTComment on above:ArrivedStart: 02-28-2025 End: 62-26-3189Wakcaige Kivbnyp0602/28/2025 9:15 AM EDT Clinical Support [facility] [address] [place] [address] Dusty Nassar DO [address] [place] [address] ArrivedNOMS NB OPHTComment on above:ArrivedStart: 09-26-2024 End: 33-12-7988Rllipjdj Wkcnysu1209/26/2024 9:00 AM EST Clinical Support [facility] [address] [place] [address] Dusty Nassar DO [address] [place] [address] [facility]rivedC[facility] OPHTComment on above:ArrivedStart: 07-25-2024 End: 62-67-2414Sysnhldp Dspttpm0507/25/2024 1:45 PM EDT Clinical Support [facility] [address] [place] [address] Dusty Nassar DO [address] [place] [address] [facility]rivedCED[facility] CITY [facility] OPHTComment on above:ArrivedStart: 05-30-2024 End: 29-37-3752Nkkiyoul Hstvvyz6305/30/2024 9:45 AM EDT Clinical Support [facility] [address] [place] [address] Dusty Nassar DO [address] [place] [address] ArrivedCED[facility] CITY [facility] OPHTComment on above:ArrivedStart: 05-28-2024 Influenza vaccinationInfluenza Vaccine (#1)[facility] HealthcareStart: 02-26-2023 ambulatoryAmbulatoryFacility:H1DBT Breast - bilateral screeningBilateral screening mammogram with tomosynthesis Imaging Routine Encounter for screening mammogram for breast cancer Ordered: 05/24/2025[facility] Work Phone: comment on above:Ordered: 05/24/2025Intravitreal Injection, Pharmacologic Agent - OD - Right EyeIntravitreal Injection, Pharmacologic Agent - OD - Right Eye Ophthalmology Routine 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 eye with active choroidal neovascularization (HCC) (CMS/HCC) Ordered: 07/25/2024[facility] Work Phone: comment on above:Ordered: 07/25/2024Intravitreal Injection, Pharmacologic Agent - OD - Right EyeIntravitreal Injection, Pharmacologic Agent - OD - Right Eye Ophthalmology Routine 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 eye with active choroidal neovascularization (HCC) (CMS/HCC) Ordered: 05/30/2024[facility] Work Phone: comment on above:Ordered: 05/30/2024 Immunizations Immunization DateImmunizationNotesCare [id number] virus vaccine, unspecified formulationJonathan Zahler DO Work Phone: [id number] virus vaccine, unspecified formulationJonathan Zahler DO Work Phone: [facility] Payers DatePayer CategoryPayerPolicy [id number] Health InsuranceMEDICAL MUTUAL [email or web address] Member Subscriber Plan / Payer (Effective 2018-Present) Name: Letty Coffey Relation to Subscriber: Self Name: Letty Coffey PayerID: Not on file Group ID: [id number] Type: Not on file Address: [address] [place] [id number] 2017Medicare [id number] Sandoval Regional Medical [id number] 2.840.3.302372.36 1960 [id number] [id number] [id number] 2.840.1.414009.3.57[id number] 2.16840.1.331782.3.57[id number] 2.16840.1.162831.3.57[id number] 2.16840.1.030047.3.57[id number] 2.16840.1.242919.3.579.[id number] 2.16.840.1.813363.3.579.2.57340-72-7667Xtwnedb3608136 2.16.840.1.408143.3.579.2.93724-32-1806Xagddwu1986902 2.16.840.1.930388.3.579.2.24137-26-7281Qylxjve0847193 2.16840.1.406246.3.579.2.56989-20-4393Aehrjao1792282 2.16.840.1.550240.3.579.2.08832-98-8879Vlrusjd5946374 2.16.840.1.342756.3.579.2.55834-23-1682Crylhgf7270690 2.16.840.1.698901.3.579.2.99264-91-1062Quyrair1467348 2.16.840.1.647485.3.579.2.89922-61-5708Jkqazrr3717392 2.16.840.1.354318.3.579.2.42794-30-1589Xfzisrk9438336 2.16.840.1.668547.3.579.2.07336-79-2397Tdlgyth4500247 2.16.840.1.191395.3.579.2.10142-85-9647Tmvnuut3327510 2.16.840.1.803103.3.579.2.63366-97-3773Umufabs6165457 2.16.840.1.510894.3.579.2.25142-32-5496Hjzgnpp9385747 2.16.840.1.680085.3.579.2.42106-63-6063Okczvkq2583519 2.16.840.1.621711.3.579.2.05730-13-8918Qzdvvnw8332670 2.16.840.1.699364.3.579.2.20302-81-0291Lseryge2151810 2.16.840.1.591698.3.579.2.68201-83-9564Oxdfnkg6640859 2.16.840.1.896784.3.579.2.76349-88-9350Pypenac6784474 2.16.840.1.324840.3.579.2.07796-94-5740Mxlrnwj2738468 2.16.840.1.262708.3.579.2.29177-58-7934Asufqwf461746496 2.16.840.1.997989.3.579.2.12470-48-1661Cwomtpz455405233 2.16.840.1.725679.3.579.2.62864-56-1055Lmltxox488510817 2.16.840.1.511639.3.579.2.30980-36-3380Kxooxca314460645 2.16.840.1.515352.3.579.2.28106-68-7867Thqwfoi127371643 2..840.1.145346.3.579.2.94960-30-4467Vfgltwy654819738 2.16.840.1.104618.3.579.2.21913-77-0409Szrsusy965844211 2.16.840.1.455431.3.579.2.26494-29-8489Udejhgg157473930 2.16.840.1.371537.3.579.2.44088-36-0510Dmhdukm615659689 2.16.840.1.083829.3.579.2.87643-76-6810Woptmtn51858064 2.16.840.1.849699.3.579.2.033124-31-6806Scjtugv93658138 2.16.840.1.821632.3.579.2.629088-16-5765Bhslxhb38640595 2.16.840.1.339934.3.579.2.261190-17-8680Oqnwcjr53099064 2.16.840.1.049829.3.579.2.900609-22-9906Qcstjyf49323053 2.16.840.1.736568.3.579.2.244276-63-7723Bxfizju78370810 2.16.840.1.284798.3.579.2.884473-94-2099Pyerdxp42880896 2.16.840.1.768621.3.579.2.076616-70-4789Vrjletq00808769 2.16.840.1.886846.3.579.2.704965-59-5480Rhukceq2259626 2.16.840.1.266822.3.579.2.678003-54-8882Rzhxgab9791217 2..840.1.477035.3.579.2.1259 Social History DateTypeDetailFacilityUnknown if ever smokedWanchese [employer] Other Start: 05-30-2024 End: 68-95-2303Ayp Assigned At [facility] [employer] Other Start: 41-31-8975Fpuocpi smoking status NHISNever smoked tobaccoBLUE MOUNTAIN [facility] HealthcareStart: 67-98-5631Iihheon use and exposureSmokeless tobacco non-userNOWV HealthcareStart: 05-30-2024 End: 21-69-4527Vaykyca of Social functionNOWV HealthcareStart: 75-91-6231Jjy assigned at birthNot on [facility] HealthcareStart: 10-44-4260DddAcfpofKMOG Healthcare Clinical Notes 03-05-2022 to 08-08-2025 Note Date & FwztXergYwxhovef72-20-6501 NoteTime Out 08/08/2025. 10:08 AM. Confirmed correct patient, procedure, site, and patient consented. Anesthesia Topical anesthesia was used. Anesthetic medications included Lidocaine 2%, Proparacaine 0.5%. Procedure Preparation included 5% betadine to ocular surface, eyelid speculum. Injection: 2 mg aflibercept 2 MG/0.05ML Route: Intravitreal, Site: Left Eye [facility]: 67361-136-40, Lot: [id number], Expiration date: 08/27/2026, Waste: 0 mL Post-op [...] with increased pain, redness, decreased vision or concerns.[facility] HealthBtxllzbtpv69-98-7309 NoteRight Eye Quality was good. Scan locations included subfoveal. Progression has been stable. Findings include abnormal foveal contour, epiretinal membrane, intraretinal fluid, pigment epithelial detachment. Left Eye Quality was good. Scan locations included subfoveal. Progression has been stable. Findings include normal observations. Notes Good scan with normal appearanceCarondelet HealthNjuvbvlciu30-42-6296 History of Present illness Narrative* Dusty Nassar, [...] 2 MG/0.05ML Route: Intravitreal, Site: Left Eye [facility]: 52219-558-65, Lot: [id number], Expiration date: 08/27/2026, Waste: 0 mL Post-op [...] decreased vision or concerns. documented in this encounterCarondelet HealthUlvvcuozla23-74-4741 NoteTime Out 07/04/2025. 11:56 AM. Confirmed correct patient, procedure, site, and patient consented. Anesthesia Topical anesthesia was used. Anesthetic medications included Lidocaine 2%, Proparacaine 0.5%. Procedure Preparation included 5% betadine to ocular surface, eyelid speculum. A 30 gauge needle was used. Injection: 2 mg aflibercept 2 MG/0.05ML Route: Intravitreal, Site: Right Eye ND: 66480-096-15, Lot: [id number], Expiration date: 06/27/2026, Waste: 0 mL Post-op [...] pain, redness, decreased vision or concerns. [facility] HealthVnerteajdj86-01-2619 NoteRight Eye Quality was good. Scan locations included subfoveal. Progression has been stable. Findings include abnormal foveal contour, epiretinal membrane, pigment epithelial detachment. Left Eye Quality was good. Scan locations included subfoveal. Progression has been stable. Findings include normal observations. Notes Good scan with normal appearanceCarondelet HealthFrehhwajgx28-91-3956 History of Present illness Narrative* Dusty Nassar, [...] 2 MG/0.05ML Route: Intravitreal, Site: Right Eye [facility]: 50482-259-61, Lot: [id number], Expiration date: 06/27/2026, Waste: 0 mL Post-op [...] decreased vision or concerns. documented in this encounterCarondelet HealthZkrhsrlxab33-52-2258 NoteTime Out 05/30/2025. 9:12 AM. Confirmed correct patient, procedure, site, and patient consented. Anesthesia Topical anesthesia was used. Anesthetic medications included Lidocaine 2%, Proparacaine 0.5%. Procedure Preparation included 5% betadine to ocular surface, eyelid speculum. A 30 gauge needle was used. Injection: 2 mg aflibercept 2 MG/0.05ML Route: Intravitreal, Site: Right Eye [facility]: 88640-936-38, Lot: [id number], Expiration date: 06/27/2026, Waste: 0 mL Post-op [...] pain, redness, decreased vision or concerns. [facility] HealthPmbmckelcl08-21-4797 History of Present illness Narrative* Dusty Nassar, [...] 2 MG/0.05ML Route: Intravitreal, Site: Right Eye [facility]: 68793-920-25, Lot: [id number], Expiration date: 06/27/2026, Waste: 0 mL Post-op [...] decreased vision or concerns. documented in this encounterCarondelet HealthWvqsaenkmj50-79-7391 History of Present illness Narrative* Kriss Velez [...] Review Audit Reviewed by Elizabeth Santiago MA (Ambulance Attendant) on 05/24/25 at 1015 Medication Order Taking? Sig Documenting Provider Last Dose Status aspirin 81 MG EC tablet [id number] 1 (one) time each day at the same time Dusty Nassar, DO Active baclofen (Lioresal) 10 MG tablet [id number] every 12 (twelve) hours Dusty Nassar, DO Active calcium carbonate (Super Calcium) 1500 (600 Ca) MG tablet [id number] 1 tablet with meals Orally Once Dusty Nassar DO Active cefdinir (Omnicef) 300 MG capsule [id number] Take 300 mg by mouth in the morning and 300 mg before bedtime. Dusty Nassra, DO Active cholecalciferol (Vitamin D3) 25 MCG (1000 UT) tablet [id number] 1 (one) time each day at the same time Dusty Nassar, DO Active denosumab (Prolia) 60 MG/ML solution prefilled syringe [id number] as directed Subcutaneous Dusty Merida, DO Active Ztrnablwyfl-Zndqkiffnwx-BZP (Lzwgva-Kuexz-WXZ-Double Str) 500-400-167 MG tablet [id number] every 12 (twelve) hours Dusty Nassar DO Active losartan (Cozaar) 25 MG tablet [id number] Oral for 90 Days Dusty Nassar DO Active Magnesium Glycinate 100 MG capsule [id number] 2 capsules 1 (one) time each day at the same time Dusty Nassar DO Active Menaquinone-7 (Vitamin K2) 100 MCG capsule [id number] as directed Orally Dusty Nassar DO Active Multiple Vitamins-Minerals (PreserVision AREDS 2) capsule [id number] 1 (one) time each day at the same time Dsuty Nassar DO Active Multiple Vitamins-Minerals (Womens 50+ Multi Vitamin) tablet [id number] as directed Orally Dusty Merida DO Active niacin 500 MG tablet [id number] 1 (one) time each day at the same time Dusty Nassar DO Active [place]-3 Fatty Acids (Fish Oil) 1200 MG capsule delayed-release [id number] 1 capsule every 12 (twelve)hours Dusty Nassar DO Active traMADol (Ultram) 50 MG tablet [id number] TAKE 1 TABLET BY MOUTH TWICE A DAY NEEDED FOR PAIN MUST LAST 30 DAYS Dusty Nassar DO Active zonisamide (Zonegran) 50 MG capsule [id number] TAKE 3 CAPSULES BY MOUTH EVERY DAY [...] 3. Cystocele, midline N81.11 documented in this encounterCarondelet HealthDmdtnduyqq28-36-1371 NoteTime Out 05/23/2025. 9:11 AM. Confirmed correct patient, procedure, site, and patient consented. Anesthesia Topical anesthesia was used. Anesthetic medications included Lidocaine 2%, Proparacaine 0.5%. Procedure Preparation included 5% betadine to ocular surface, eyelid speculum. Injection: 2 mg aflibercept 2 MG/0.05ML Route: Intravitreal, Site: Left Eye [facility]: 46651-648-74, Lot: [id number], Expiration date: 06/27/2026, Waste: 0 mL Post-op [...] with increased pain, redness, decreased vision or concerns.[facility] HealthSalzivgbdb19-07-8037 NoteRight Eye Quality was good. Scan locations included subfoveal. Progression has improved. Findings include abnormal foveal contour, epiretinal membrane, pigment epithelial detachment. Left Eye Quality was good. Scan locations included subfoveal. Progression has been stable. Findings include normal observations. Notes Good scan with normal appearance left eye (OS)[facility] HealthTjxuavsayi46-43-0429 History of Present illness Narrative* Dusty Nassar, [...] MG/0.05ML Route: Intravitreal, Site: Left Eye ND: 35174-037-30, Lot: [id number], Expiration date: 06/27/2026, Waste: 0 mL Post-op [...] decreased vision or concerns. documented in this encounterCarondelet HealthWinslwpiju23-46-1952 NoteTime Out 04/18/2025. 8:54 AM. Confirmed correct patient, procedure, site, and patient consented. Anesthesia Topical anesthesia was used. Anesthetic medications included Lidocaine 2%, Proparacaine 0.5%. Procedure Preparation included 5% betadine to ocular surface, eyelid speculum. A 30 gauge needle was used. Injection: 2 mg aflibercept 2 MG/0.05ML Route: Intravitreal, Site: Right Eye [facility]: 05657-822-52, Lot: [id number], Expiration date: 06/27/2025, Waste: 0 mL Post-op [...] pain, redness, decreased vision or concerns. [facility] HealthNmgqozhoun47-08-7619 NoteRight Eye Quality was good. Scan locations included subfoveal. Progression has been stable. Findings include abnormal foveal contour, epiretinal membrane, pigment epithelial detachment. Left Eye Quality was good. Scan locations included subfoveal. Progression has been stable. Findings include abnormal foveal contour.[facility] HealthIisedckcmf52-43-3413 History of Present illness Narrative* Dusty Nassar, [...] 2 MG/0.05ML Route: Intravitreal, Site: Right Eye [facility]: 28309-765-79, Lot: [id number], Expiration date: 06/27/2025, Waste: 0 mL Post-op [...] decreased vision or concerns. documented in this encounterCarondelet HealthBcmbtaiclb65-85-2508 NoteTime Out 03/07/2025. 1:19 PM. Confirmed correct patient, procedure, site, and patient consented. Anesthesia Topical anesthesia was used. Anesthetic medications included Lidocaine 2%, Proparacaine 0.5%. Procedure Preparation included 5% betadine to ocular surface, eyelid speculum. A 30 gauge needle was used. Injection: 2 mg aflibercept 2 MG/0.05ML Route: Intravitreal, Site: Right Eye ND: 13027-237-90, Lot: [id number], Expiration date: 03/27/2026, Waste: 0 mL Post-op [...] pain, redness, decreased vision or concerns. [facility] HealthGggqpcglec72-84-8009 History of Present illness Narrative* Dusty Nassar, [...] MG/0.05ML Route: Intravitreal, Site: Right Eye ND: 05028-220-56, Lot: [id number], Expiration date: 03/27/2026, Waste: 0 mL Post-op [...] decreased vision or concerns. documented in this encounterCarondelet HealthNrpzucgelt98-19-7139 NoteRight Eye Quality was good. Scan locations included subfoveal. Progression has worsened. Findings include intraretinal fluid, pigment epithelial detachment. Left Eye Quality was good. Scan locations included subfoveal. Progression has been stable. Findings include abnormal foveal contour.[facility] HealthNkvibzfmpx32-49-7229 Note Time Out 02/28/2025. 10:00 AM. Confirmed correct patient, procedure, site, and patient consented. Anesthesia Topical anesthesia was used. Anesthetic medications included Lidocaine 2%, Proparacaine 0.5%. Procedure Preparation included 5% betadine to ocular surface, eyelid speculum. Injection: 2 mg aflibercept 2 MG/0.05ML Route: Intravitreal, Site: Left Eye [facility]: 98112-288-28, Lot: [id number], Expiration date: 03/27/2026, Waste: 0 mL Post-op [...] with increased pain, redness, decreased vision or concerns.[facility] HealthJblfzbrxlb63-66-4416 History of Present illness Narrative* Dusty Nassar, DO - 02/28/2025 9:15 AM EDT Images from the original note were not included. Assessment/Plan Diagnoses and all orders for this visit: 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 eye with active choroidal neovascularization ([facility]) - OCT, Retina - OU - Both [...] 2 MG/0.05ML Route: Intravitreal, Site: Left Eye [facility]: 74234-990-10, Lot: [id number], Expiration date: 03/27/2026, Waste: 0 mL Post-op [...] antiVEGF. Very mild amount. documented in this encounterCarondelet HealthXloabuqakx45-42-0300 NoteTime Out 09/26/2024. 9:37 AM. Confirmed correct patient, procedure, site, and patient consented. Anesthesia Topical anesthesia was used. Anesthetic medications included Lidocaine 2%, Proparacaine 0.5%. Procedure Preparation included 5% betadine to ocular surface, eyelid speculum. Injection: 2 mg aflibercept 2 MG/0.05ML Route: Intravitreal, Site: Left Eye [facility]: 62331-738-47, Lot: [id number], Expiration date: 12/26/2025, Waste: 0 mL Post-op [...] with increased pain, redness, decreased vision or concerns.[facility] HealthAaehtpzhdt69-84-2686 NoteRight Eye Quality was good. Scan locations included subfoveal. Progression has been stable. Findings include abnormal foveal contour, epiretinal membrane, intraretinal fluid, pigment epithelial detachment. Left Eye Quality was good. Scan locations included subfoveal. Progression has been stable. Findings include normal observations. Notes Good scan with normal appearance left eye (OS)[facility] HealthPitmejdwkq90-11-2407 History of Present illness Narrative* Dusty Nassar, [...] 2 MG/0.05ML Route: Intravitreal, Site: Left Eye [facility]: 94082-045-25, Lot: [id number], Expiration date: 12/26/2025, Waste: 0 mL Post-op [...] decreased vision or concerns. documented in this encounterCarondelet HealthXgkdhlkjjr26-10-7687 NoteTime Out 07/25/2024. 2:58 PM. Confirmed correct patient, procedure, site, and patient consented. Anesthesia Topical anesthesia was used. Anesthetic medications included Lidocaine 2%, Proparacaine 0.5%. Procedure Preparation included 5% betadine to ocular surface, eyelid speculum. Injection: 2 mg aflibercept 2 MG/0.05ML Route: Intravitreal, Site: Left Eye [facility]: 56723-995-78, Lot: [id number], Expiration date: 08/27/2025, Waste: 0 mL Post-op [...] with increased pain, redness, decreased vision or concerns.[facility] HealthOfdladhuob26-35-7308 NoteRight Eye Quality was good. Scan locations included subfoveal. Progression has been stable. Findings include abnormal foveal contour, pigment epithelial detachment. Left Eye Quality was good. Scan locations included subfoveal. Progression has been stable. Findings include abnormal foveal contour.[facility] HealthEfjrnewfnt20-04-7124 History of Present illness Narrative* Dusty Nassar, [...] 2 MG/0.05ML Route: Intravitreal, Site: Left Eye [facility]: 61138-130-30, Lot: [id number], Expiration date: 08/27/2025, Waste: 0 mL Post-op [...] decreased vision or concerns. documented in this encounterCarondelet HealthOxuvyoowgk52-60-2137 NoteTime Out 05/30/2024. 10:38 AM. Confirmed correct patient, procedure, site, and patient consented. Anesthesia Topical anesthesia was used. Anesthetic medications included Lidocaine 2%, Proparacaine 0.5%. Procedure Preparation included 5% betadine to ocular surface, eyelid speculum. Injection: 1.25 mg bevacizumab 100 MG/4ML Route: Intravitreal, Site: Left Eye [facility]: 27729-055-00, Lot: [id number], Expiration date: 08/14/2024, Waste: 0 mL Post-op [...] with increased pain, redness, decreased vision or concerns.[facility] HealthKwjkplsvnq83-32-1315 NoteRight Eye Quality was good. Scan locations included subfoveal. Progression has improved. Findings include abnormal foveal contour, intraretinal fluid, pigment epithelial detachment. Left Eye Quality was good. Scan locations included subfoveal. Progression has been stable. Findings include abnormal foveal contour.[facility] HealthYbksthsksj22-50-0238 History of Present illness Narrative* Dusty Nassar, DO - 05/30/2024 9:45 AM EDT Images from the original note were not included. Assessment/Plan Diagnoses and all orders for this visit: 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 eye with active choroidal neovascularization (HCC) ([facility]) - OCT, Retina - OU - [...] 100 MG/4ML Route: Intravitreal, Site: Left Eye [facility]: 90320-943-18, Lot: [id number], Expiration date: 08/14/2024, Waste: 0 mL Post-op [...] MG/ML solution prefilled syringe as directed Subcutaneous Iysmxekknon-Axvtkugabtg-JMR (Gtfdyr-Hujdo-JAO-Double Str) 500-400-167 MG tablet every 12 (twelve) [...] time each day at the same time [place]-3 Fatty Acids (Fish Oil) 1200 MG capsule [...] Normal Normal Refraction Wearing Rx Sphere [place] Add Right +2.50 -2.00 077 +3.25 Left [...] laser capsulotomy, they are to notify their advertising account representative promptly if they have a significant change in symptoms, such as flashes of light (photopsia), an increase in floaters, loss of visual field or decrease in visual acuity. documented in this encounterCarondelet HealthKsjlpjuvrg42-53-6597 Evaluation note* Encounter Date Diagnosis Assessment Notes Treatment Notes Treatment Clinical Notes Jun, Acute non-recurrent maxillary si nusitis (ICD-10 - J01.00) Finish antibiotic, stay hydrated. Ok for NSAIDs for head pressure. Call if no improvement. [employer] Other 08-17-2023 NoteSUBJECTIVE: Chief complaint: Back and right leg pain. History of present illness: Consultation referred by pain management, Dr. Layton of [facility]. Patient reports chronic low back pain [...] found for any pre (more content not included)...[facility]08-17-2023 NoteSubjective: HPI: Letty Coffey is a [...] and assess x-rays of back. Malina Mckeon MS3[facility]07-18-2023 Evaluation note* Encounter Date Diagnosis Assessment [...] is busy with other appts right now. [employer] Other 06-22-2023 Evaluation note* Encounter Date Diagnosis [...] long as possible before considering surgical intervention. [employer] Other 05-04-2023 NoteCONSULTATION CONSULTATION DATE: 01/28/2023 TO: [...] our patients to inform us about any rgms-zad-ngqlulm medications or herbal remedies/nutritional supplements/alternative remedies. 2. [...] treatment options with their primary care provider.[facility] HospitalHeqmwhet38-15-8349 Evaluation note * Encounter Date Diagnosis Assessment Notes Treatment Notes Treatment Clinical Notes Dec, Essential (primary) hypertension (ICD-10 - I10) new problem. rx handwritten. f/u 6 weeks. Dec,Other chronic pain (ICD-10 - G89.29) Dec,ain in left shoulder (ICD-10 - M25.512)PT order given to pt. [facility] Other 04-06-2023 NoteCONSULTATION CONSULTATION DATE: 12/31/2022 TO: [...] our patients to inform us about any ajli-wun-cznvvgy medications or herbal remedies/nutritional supplements/alternative remedies. 2. [...] treatment options with their primary care provider.[facility] HospitalAxdcjrzw64-19-7480 Note CONSULTATION PROCEDURE DATE: 10/07/2022 PREOPERATIVE DIAGNOSIS: [...] fan-like pattern. Patient tolerated the procedure well.[facility] HospitalWwxofbsn47-94-8999 NoteCONSULTATION CONSULTATION DATE: 10/07/2022 HISTORY OF PRESENT [...] sitting does decrease her pain. Medications include tjuo-sec-wfbxsog Tylenol and the use of Salonpas patches. [...] otherwise indicated. Patient agrees with this plan.[facility] HospitalDyuvunwt76-09-9182 NoteCONSULTATION CONSULTATION DATE: 07/30/2022 This is a [...] with radiating pain to the right hip. Linad's and compression mildly tender. Reproduction of spinoaxial [...] be followed up at the office thereafter.[facility] HospitalOxiauoeq51-28-1553 NoteCONSULTATION CONSULTATION DATE: 06/25/2022 HISTORY OF PRESENT [...] patient is in agreement with this plan.[facility] HospitalSjhrrimd71-30-3217 NoteCONSULTATION CONSULTATION DATE: 05/19/2022 CHIEF COMPLAINT: Right [...] like to proceed. CC: Luis Thomas M.D.[facility] HospitalLsurxwgc50-10-4639 NoteCONSULTATION PROCEDURE DATE: 04/28/2022 PREOPERATIVE DIAGNOSIS: Right [...] Will be followed up in the office.[facility] HospitalBtrdliwb37-42-1927 NoteCONSULTATION CONSULTATION DATE: 04/28/2022 CHIEF COMPLAINT: Right [...] like to proceed. CC: Luis Thomas M.D.[facility] HospitalZujccvsj64-65-4543 NotePROCEDURE: XR HIP RT 2 3V W [...] by: YOUSUF ORTIZ Date: 2022-03-05 10:09[facility] noteNo [employer] Other evaluation note* Diagnosis 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 eye with active choroidal neovascularization (CMS/HCC)- Primary documented in this encounter [facility] HealthcareEvaluation note* Diagnosis 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 eye with active choroidal neovascularization (HCC) (CMS/HCC)- Primary Right posterior capsular opacification Unspecified after-cataract documented in this encounter [facility] HealthcareEvaluation note* Diagnosis 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 eye with active choroidal neovascularization (CMS/HCC)- Primary documented in this encounter [facility] HealthcareEvaluation note* Diagnosis 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 eye with active choroidal neovascularization (CMS/HCC)- Primary Exudative age-related macular 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 (CMS/HCC) documented in this encounter [facility] HealthcareEvaluation note* Diagnosis Exudative age-related macular 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 (CMS/HCC)- Primary documented in this encounter [facility] HealthcareEvaluation note* Diagnosis Exudative age-related macular [...] HistoryTONSILLECTOMYSurgical HistoryTYMPANOPLASTYSurgical HistoryCHOLESTEOTOMASurgical HistoryCOLONOSCOPY Hospitalization HistorySEE SURGICAL [facility] Other History general Narrative - Reported* Type Description Date Medical History Osteopenia Medical HistoryCOVIDMedical HistoryHyperlipemiaMedical HistoryMenopauseMedical HistoryCardiac murmurMedical HistoryElevated blood pressure readingMedical HistoryHip pain, rightMedical HistoryMedication managementMedical History ArthritisSurgical HistoryAPPENDECTOMYSurgical HistoryTAH AND BSOSurgical History TONSILLECTOMYSurgical HistoryTYMPANOPLASTYSurgical HistoryCHOLESTEOTOMASurgical HistoryCOLONOSCOPYSurgical HistoryhysterectomySurgical Historyear growth surgery Hospitalization HistorySEE SURGICAL [employer] Other Summary Purpose Family History No Family [...] content) DATE CREATED AUTHOR 03/23/2018 [facility] DATE CREATED AUTHOR AUTHOR'S ORGANIZ ATION 02/10/2023 [facility] DATE CREATED AUTHOR AUTHOR'S ORGANIZ ATION 05/19/2023 [facility] DATE CREATED AUTHOR AUTHOR'S ORGANIZ ATION 06/13/2025 [facility] DATE CREATED AUTHOR AUTHOR'S ORGANIZ ATION 08/09/2025 [facility] EPIC REASON FOR VISIT (unrecogniz ed section and content) ReasonCommentsMacular DegenerationRetinal InjectionReasonCommentsFollow-upReason CommentsFollow-upRetinal InjectionMacular DegenerationReasonCommentsRetinal InjectionReasonCommentsFollow-upMacular DegenerationReasonCommentsRetinal InjectionMacular DegenerationReasonCommentsGynecologic ExamDenies concerns. Pt states currently on antibiotic for UTI. Denies breast concerns. Denies vaginal b leeding/spotting.ReasonCommentsFollow-upRetinal Injection Care Teams (unrecognized sec tion and content) Team MemberRelationshipSpecialtyStart DateEnd Date Wiley Price MD [address] [place] [address] [phone] [facility]CP - [facility]12/10/23 Kimber Price MD [facility] [place] [address] Referring PhysicianFami Medicine10/15/23Team MemberRelationshipSpecialtyStart DateEnd Wiley Price MD [address] [place] [address] [phone] PCP - [facility]Elizabeth [facility] Medicine12/10/23 Kimber Price MD [facility] [place] [address] Referring PhysicianFamily Medicine10/15/23Team MemberRelationshipSpecialtyStart DateEnd Date Wiley Price MD [address] [place] [address] [phone] PCP - GeneralFamily Medicine12/10/23 Kimber Price MD [address] [place] [address] Referring PhysicianFami Medicine10/15/23Team MemberRelationshipSpecialtyStart DateEnd Date Wiley Price MD [address] [place] [address] (Fax) PCP - GeneralFamily Medicine12/10/23 Kimber Price MD [address] [place] [address] Referring PhysicianFamily Medicine10/15/23Team MemberRelationshipSpecialtyStart DateEnd Date Wiley Price MD [address] [place] [address] (Fax) PCP - Generalmily Medicine12/10/23 Kimber Price MD [facility] [place] [address] Referring PhysicianFamily Medicine10/15/23Team MemberRelationshipSpecialtyStart DateEnd Date Wiley Price MD [address] [place] [address] (Fax) PCP - Generalmily Medicine12/10/23 Kimber Price MD [address] [place] [address] Referring PhysicianFamily Medicine10/15/23Team MemberRelationshipSpecialtyStart DateEnd Date Wiley Price MD [address] [place] [address] (Fax) PCP - GeneralFamily Medicine12/10/23 Kimber Price MD [address] [place] [address] Referring PhysicianFamily Medicine10/15/23Team MemberRelationshipSpecialtyStart DateEnd Date Wiley Price MD [address] [place] [address] PCP - GeneralFamily Medicine12/10/23 Kimber Price MD [facility] [place] [address] Referring Physicianmily Medicine10/15/23Team MemberRelationshipSpecialtyStart DateEnd Date Wiley Price MD [address] [place] [address] (Fax) PCP - [facility]Elizabeth [facility] Medicine12/10/23 Kimber Price MD [address] [place] [phone] Referring PhysicianElizabeth [facility] Infirmary Medicine10/15/23Team MemberRelationshipSpecialtyStart DateEnd Date Wiley Price MD [address] [place] [phone] (Fax) PCP - [facility]Elizabeth [facility] Medicine12/10/23 Kimber Price MD [address] [place] [address] Referring Physicianmi Medicine10/15/23Team MemberRelationshipSpecialtyStart DateEnd Date Wiley Price MD [address] [place] [phone] (Fax) PCP - GeneralFamily Medicine12/10/23 Kimber Price MD [facility] [place] [address] Referring PhysicianElizabeth [facility]irm[facility] Medicine10/15/23 FOR RECORDS PERTAINING TO PATIENTS WHO [...] CLINICAL RECORDS. [facility] [employer], [facility]. provides no warranty or guarantee of the accuracy or completeness of information in this document.
--- OUTSIDE RECORDS SUMMARY | 2025-09-24 07:10 | XMS_ITS | Clinical Summary ---
Author Organization [facility] Healthcare Address [address] [place] [address] Care Team Providers Care Stamp Redemption Clerk Name Role Phone Kimber Price MD Unavailable [phone] Wiley Price MD Primary Care Provider [phone] Allergies No known active allergies Medications MedicationSigDispense [...] MG/ML solution prefilled syringe as directed SubcutaneousActive Wrapgoemreq-Rftsyfshcbj-QQD (Xkhmqr-Gyhbt-BDF-Double Str) 500-400-167 MG tablet every 12 (twelve) [...] time each day at the same timeActive Bedford-3 Fatty Acids (Fish Oil) 1200 MG capsule [...] degeneration of left eye with active choroidal kqtvawuoizgpkxsrfy83/19/2024ight posterior capsular niopfwdmjlovb45/15/2024ry eyes10/11/2023lepharitis of upper and lower eyelids of both eyes10/11/2023 Resolved Problems ProblemNoted DateDiagnosed DateResolved DateAdvanced atrophic nonexudative age- related macular degeneration of both eyes without subfoveal involvement / Encounters DateTypeDepartmentCare InyrXwylepqumoq25/18/2025 10:30 AM ESTClinical Support [facility] [address] [place] [address] Bakari Nassar, DO Follow-up; Retinal Injection; Macular Owcufjhxkmsw57/18/2025amboo flowsheet [facility] [address] [place] [address] Bakari Nassar, DO 08/14/20253550Qqhjjw94/17/2025Orders Only [facility] [address] [place] [address] Kriss Velez, DO 08/08/2025 9:30 AM ESTClinical Support [facility] [address] [place] [address] Bakari Nassar, DO Macular Degeneration; Retinal Xvrtznosa35/12/2025amboo flowsheet [facility] [address] [place] [address] Bakari Nassar, DO 08/08/20254039Sllqph76/08/2025 11:15 AM EDTClinical Support [facility] [address] [place] [address] Bakari Nassar, DO Macular Degeneration; Retinal Xplfjogwc05/08/2025Bamboo flowsheet [facility] [address] [place] [address] Bakari Nassar DO 07/04/2025Travelfrom Last 3 Months Family History Medical HistoryRelationNameCommentsCancerFatherCataractsMotherHypertensionMother DiabetesSisterThyroid diseaseSisterRelationNameStatusCommentsFatherMotherSister Social History Tobacco UseTypesPacks/DayYears UsedDateSmoking Tobacco: NeverSmokeless Tobacco: Never Tobacco Cessation:Counseling Given: Not Answered CommentsUnknownSex and Gender InformationValueDate RecordedSex Assigned at BirthNot on fileLegal McfHdbmiz65/01/2023 8:35 PM EDTGender IdentityNot on fileSexual OrientationNot on file Last Filed Vital Signs Vital SignReadingTime TakenCommentsBlood Htskeshw448/70005/24/2025 10:16 AM EDT Pulse--Temperature--Respiratory Rate--Oxygen Saturation--Inhaled Oxygen Concentration--Tomlgo34 kg (150 lb)05/24/2025 10:16 AM EDTHeight--Body Mass Index-- Plan of Treatment DateTypeDepartmentCare Team (Latest Contact Info)Jlejurctvcw14/02/2026 9:45 AM ESTClinical Support [facility] [address] [place] [address] Bakari Nassar DO [address] [place] [address] 06/05/2026 10:15 AM EDTOffice Visit NOMS [facility] [address] [place] [address] Kriss Velez DO [address] [place] [address] Health MaintenanceDue DateLast DoneCommentsPneumococcal Vaccine: 65+ Years Vlgwataqb32/13/2018, 04/25/2017Influenza TqgolauGewwvafvb05/31/2025, 08/11/2024, 07/26/2023, Additional history exists Procedures Procedure NamePriorityDate/TimeAssociated DiagnosisCommentsINTRAVITREAL INJECTION, PHARMACOLOGIC AGENT - OD - RIGHT WHBKaqqpns24/18/2025 10:39 AM EST Exudative age-related macular 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 (HCC) INTRAVITREAL INJECTION, PHARMACOLOGIC AGENT - OS - LEFT VCKKueabii46/12/2025 10:08 AM EST 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 eye with active choroidal neovascularization (HCC) OCT, RETINA - OU - BOTH RHBAMgzidxc42/12/2025 10:05 AM EST 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 eye with active choroidal neovascularization (HCC) INTRAVITREAL INJECTION, PHARMACOLOGIC AGENT - OD - RIGHT RQJRaazevs16/08/2025 11:56 AM EDT Exudative age-related macular 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 (HCC) OCT, RETINA - OU - BOTH ENSOEbbqufj15/08/2025 11:51 AM EDT Exudative age-related macular degeneration [...] 2 MG/0.05ML ??Route: Intravitreal, Site: Right Eye ??[facility]: 11732-949-57, Lot: [id number], Expiration date: 08/27/2026, Waste: 0 mL Post-op [...] vision or concerns. ?? Authorizing ProviderResult TypeResult StatusJociaran Nassar [facility] PROCEDURESFinal Result * Intravitreal Injection, Pharmacologic [...] 2 MG/0.05ML ??Route: Intravitreal, Site: Left Eye ??[facility]: 99215-301-43, Lot: [id number], Expiration date: 08/27/2026, Waste: 0 mL Post-op [...] vision or concerns. ?? Authorizing ProviderResult TypeResult [facility] Aguilar [place] [facility] PROCEDURESFinal Result * OCT, Retina - [...] scan with normal appearance Authorizing ProviderResult TypeResult [facility] Aguilar [facility] TOMOGRAPHY Final Result * Intravitreal Injection, Pharmacologic [...] 2 MG/0.05ML ??Route: Intravitreal, Site: Right Eye ??[facility]: 31308-333-50, Lot: [id number], Expiration date: 06/27/2026, Waste: 0 mL Post-op [...] vision or concerns. ?? Authorizing ProviderResult TypeResult StatusBakari Nassar [facility] PROCEDURESFinal Result * OCT, [...] normal appearance Authorizing ProviderResult TypeResult StatusBakari Nassar [facility] TOMOGRAPHY Edited Result - Final from Last 3 Months Insurance [address] [place] [address] Care Teams Team MemberRelationshipSpecialtyStart Date Wiley Price MD [address] [place] [address] PCP - GeneralFamily Medicine12/10/23 Kimber Price MD [address] [phone] Referring PhysicianFamily Medicine10/15/23
--- OUTSIDE RECORDS SUMMARY | 2025-09-24 07:10 | XMS_ITS | Patient Health Record ---
Author Organization [facility] Address [address] [place] [address] Care Team Providers Care Automation Qa Tester Name Role Phone Larry Ross Unavailable [phone] Allergies No Known Allergies Reason For Referral No Information Medications Medication SIG (Take, Route, Frequency, Duration) Notes Start Date End Date Status Aspirin Low Dose ActiveBaclofenActiveVitamin K4ZndompfpmvoxoxLvbqgiYbssrtv K7PwgvxhBjmtcu multivitamin with vitamin U2WjoepeXzbtpnAmrsqzhyuXBBfcYxrfzdldnafqlmeyIgdjde PreserVision AREDS 2ActiveCalciumActiveGlucosamine ChondroitinActiveniacinActive Social History Tobacco Use: Social History Observation Description Date Details (start date - stop date) Never Smoker NA - NA AUDIT-C (Standard) Question Answer Notes Did you have a drink containing alcohol in the p ast year? No Ckaelo3WuqtulezqkogaaKhtownrnCvvcuvf Control (Standard) Question Answer Notes Tobacco use: Nonsmoker Problems Problem Type SNOMED Code ICD Code Onset Dates Problem Status W/U Status Risk Notes Problem Lumbar spine scoliosis (60959783 3) Other forms of scoliosis, lumbar region (M41.86) ActiveconfirmedProblemSpinal stenosis of lumbar region (92988454)Spinal stenosis, lumbar region without neurogenic claudication (M48.061)Activeconfirmed Plan Of Treatment Pending Test Test Name Order Date Lumbar spine, 4v flex ext - 07032 2023 Insurance Providers Payer Name Payer Address Payer Phone Subscriber Number Group Number Insured Name Patient Relationship to Insured Coverage Start Date Coverage [place] [address] [place] [address] [id number] BRUNA LOPEZelf - patient is the [facility] [address] [place] [id number], JANICESelf - patient is the insured Medical (General) History Medical History History ICD Code High Blood Pressure OsteoporosisRheumatoid arthritisSurgical History Surgery Date(Month/Year) Tonsillectomy/Adenoidectomy 1956 Cataract surgery 2016 Ruptured appendix 08/1978 Hysterectomy 07/1999
--- OUTSIDE RECORDS SUMMARY | 2025-09-24 07:11 | XMS_ITS | Patient Health Record ---
Author Organization [facility] [place] Address [address] [place] [address] Care Team Providers Care Truck Loader And Unloader Name Role Phone Kimber Price Primary Care Provider [phone] T[address] Motley Ottoniel [phone] Allergies No Known Allergies Results Component Value [...] 10:36:47 AM Interpretation: Performing Lab: Notes/Report: [facility] ,Color UrineLT. YELLOWYELLOWClarity UrineCLOUDYCLEARSpecific [place] Urine1.020 1.005-1.025pH Urine6.05.0-9.0Protein UrineNEGATIVENEG/TRACE mg/dLGlucose Urine UANEGATIVENEGATIVE mg/dLBilirubin UrineNEGATIVENEGATIVEKetones UrineNEGATIVE NEGATIVE mg/dLBlood UrineTRACE-INEGATIVENitrite UrineNEGATIVENEGATIVE Urobilinogen Urine0.20.2-1.0 EU/dLLeukocyte Esterase UrineLARGENEGATIVEWBC Urine 75-100NONE SEEN #/HPFRBC Zrdvo4-452-3 #/HPFBacteria UrineMODERATENONE SEEN #/HPF Mucus UrineNONE SEENNONE SEENSquamous Epithelial Cell UrineRARENONE/RARE #/LPF Crystals Seen?SeenNone Seen #/HPFCalcium Oxalate Crystals UrineFEWCast Seen?NONE SEENNONE SEEN #/LPFPerforming Lab:see noteML - [facility] LBUrine Culture - [facility] Reviewed date:06/29/2025 02:31:53 PM Interpretation: Performing Lab: Notes/Report: [facility] ,Urine Culture - FRMCSee Below For Report >100,000 colonies/ml mixed Urine Culture - [place] Urine Culture - FRMCbacterial skin contaminants >100,000 colonies/ml mixed Urine Culture - [facility] Urine Culture - [facility]2 Days >100,000 colonies/ml mixed Urine Culture - [facility] Urine Culture - [facility] >100,000 colonies/ml mixed Urine Culture - [place] Urine Culture - FRMCTesting performed at [facility] >100,000 colonies/ml mixed Urine Culture - [facility] Urine Culture - [id number] [place] [address] >100,000 colonies/ml mixed Urine Culture - [facility] Performing Lab:see noteML - [facility] LBUA RANDOM W or MICROSCOPIC Reviewed date:06/28/2025 02:26:08 PM Interpretation: Performing Lab: Notes/Report: [facility] ,Color UrineLT. YELLOWYELLOWClarity UrineCLEARCLEARSpecific [place] Urine1.020 1.005-1.025pH Urine6.05.0-9.0Protein UrineNEGATIVENEG/TRACE mg/dLGlucose Urine UANEGATIVENEGATIVE mg/dLBilirubin UrineNEGATIVENEGATIVEKetones UrineNEGATIVE NEGATIVE mg/dLBlood UrineNEGATIVENEGATIVENitrite UrineNEGATIVENEGATIVE Urobilinogen Urine0.20.2-1.0 EU/dLLeukocyte Esterase UrineMODERATENEGATIVEWBC Urine5-10NONE SEEN #/HPFRBC Urine0-20-2 #/HPFBacteria UrineTRACENONE SEEN #/HPF Mucus UrineTRACENONE SEENSquamous Epithelial Cell UrineMODERATENONE/RARE #/LPF Crystals Seen?None SeenNone Seen #/HPFCast Seen?NONE SEENNONE SEEN #/LPFUrine Culture IndicatedALREADY ORDEREDPerforming Lab:see noteML - [facility] LBUrine Culture - [facility] Reviewed date:06/11/2025 03:31:37 PM Interpretation: Performing Lab: Notes/Report: [facility] ,Urine Culture - [facility]MCSee Below For Report [place] Urine Culture - [facility] Isolated Testing performed at [facility] Urine Culture - [facility] Antibiotic Interpretation SUSHANT Status Organism: 1.1 O:[facility] Urine Culture - [id number] [place] [address] [place] Urine Culture - [facility] Isolated Testing performed at [facility] Urine Culture - [facility] Antibiotic Interpretation SUSHANT Status Organism: 1.1 O:ENTFAC Urine Culture - FRMCSee Below For Report [place] Count Urine Culture - [facility] Isolated Testing performed at [facility] Urine Culture - [facility] Antibiotic Interpretation SUSHANT Status Organism: 1.1 O:ENTFAC Urine Culture - FRMCSee Below For Report [place] Count Urine Culture - [facility] Isolated Testing performed at [facility] Urine Culture - [facility] Antibiotic Interpretation SUSHANT Status Organism: 1.1 O:ENTFAC Urine Culture - [facility]>100,000 [place] Count Urine Culture - [facility] Isolated Testing performed at [facility] Urine Culture - [facility] Antibiotic Interpretation SUSHANT Status Organism: 1.1 O:ENTFAC Urine Culture - FRMCSee Below For Report [place] Count Urine Culture - [facility] Isolated Testing performed at [facility] Urine Culture - [facility] Antibiotic Interpretation SUSHANT Status Organism: 1.1 O:ENTFAC Urine Culture - FRMCAmpicillin S F [place] Count Urine Culture - [facility] Isolated Testing performed at [facility] Urine Culture - [facility] Antibiotic Interpretation SUSHANT Status Organism: 1.1 O:ENTFAC Urine Culture - FRMCDaptomycin S F [place] Count Urine Culture - [facility] Isolated Testing performed at [facility] Urine Culture - [facility] Antibiotic Interpretation SUSHANT Status Organism: 1.1 O:ENTFAC Urine Culture - FRMCLevofloxacin S F [place] Count Urine Culture - [facility] Isolated Testing performed at [facility] Urine Culture - [place] Antibiotic Interpretation SUSHANT Status Organism: 1.1 O:ENTFAC Urine Culture - FRMCLinezolid S F [place] Count Urine Culture - [facility] Isolated Testing performed at [facility] Urine Culture - [facility] Antibiotic Interpretation SUSHANT Status Organism: 1.1 O:ENTFAC Urine Culture - FRMCNitrofurantoin S F [place] Count Urine Culture - [facility] Isolated Testing performed at [facility] Urine Culture - [facility] Antibiotic Interpretation SUSHANT Status Organism: 1.1 O:ENTFA Urine Culture - FRMCTetracycline S F [place] Count Urine Culture - [facility] Isolated Testing performed at [facility] Urine Culture - [facility] Antibiotic Interpretation SUSHANT Status Organism: 1.1 O:[facility] Urine Culture - FRMCVancomycin S F [place] Count Urine Culture - [facility] Isolated Testing performed at [facility] Urine Culture - FR Antibiotic Interpretation SUSHANT Status Organism: 1.1 O:[facility] Urine Culture - FRMCCiprofloxacin I F [place] Urine Culture - [facility] Isolated Testing performed at [facility] Urine Culture - [place] Antibiotic Interpretation SUSHANT Status Organism: 1.1 O:ENTFAC Performing Lab:see note - [facility] LB SEE REPORT - Library Technical Assistant Id information not found for OBX-specific machine molder squeeze legend CREATININE Reviewed date:02/08/2025 03:45:06 PM Interpretation: Performing Lab: Notes/Report: [facility] ,Creatinine0.580.55-1.02 mg/dLEstimated GFR ( Ginger>60>=60 mL/min/1.73m 2Estimated GFR (Non- Miriam>60>=60 mL/min/1.73m 2Performing Lab:see note - [facility] LBCALCIUM Reviewed date:02/08/2025 03:44:08 PM Interpretation: Performing Lab: Notes/Report: [facility] ,Calcium9.18.5-10.1 mg/dLPerforming Lab:see note - [facility] LB CREATININE Reviewed date:08/13/2025 10:39:33 AM Interpretation: Performing Lab: Notes/Report: [facility] ,Creatinine0.610.55-1.02 mg/dLEstimated GFR ( Ginger>60>=60 mL/min/1.73m 2Estimated GFR (Non- Miriam>60>=60 mL/min/1.73m 2Performing Lab:see noteML - [facility] LBCALCIUM Reviewed date:08/13/2025 10:39:33 AM Interpretation: Performing Lab: Notes/Report: [facility] ,Calcium8.98.5-10.1 mg/dLPerforming Lab:see noteML - [facility] LBMM tomosynthesis screening BI Reviewed date:08/14/2025 04:00:02 PM Interpretation: Performing Lab: Notes/Report: Source Facility: [facility]-[address] [place] [address] [place] [address] Mammography Report Signed Patient: LETTY COFFEY MR#: [id number] : 1945 Acct:[id number] Age/Sex: 80 / F ADM Date: 08/13/25 Loc: MAMMO Attending Dr: BREANNE HENDERSON Ordering Physician: BREANNE HENDERSON Results: Date of Service: 08/13/25 Follow Up: Procedure(s): MM tomosynthesis screening BI Accession Number(s): [id number] cc: KIMBER PRICE ; BREANNE HENDERSON Patient Name: LETTY COFFEY MR#: [id number] : 1945 Exam Date: 08/13/2025 Ordering Doctor: [...] Treatments None Family Cancers None LOCATION: [facility] BREAST COMPOSITION: There are scattered [...] Signed By: 08/13/25 1352 DD/ 135 TD/TT: Javascript Software Engineer: Reason For Referral No Information Medications Medication [...] tablet as needed Orally Once a dayPAIN ARRZDN845ActiveMagnesium Glycinate 100 MG2 capsule Orally DailyActiveLosartan Potassium 25 MGTAKE 1 TABLET BY MOUTH EVERY DAY; Duration: 90 fkizMbxpefWlbmfc-Qdrjd-TPX-Double Str 500-400-167 MG1 tablet Orally BIDActiveFish Oil [...] alcohol in the p ast year? No Nhvsbr9GrbgnvucwfpyivKzuejynyRSLNQ-Q (Standard) Question Answer Notes Did you have a drink containing alcohol in the p ast year? No Ghfxfp6HdfpoinbcvqqkkBcmqfqxq Problems Problem Type SNOMED Code ICD Code Onset Dates Problem Status W/U Status Risk Notes Problem Essential hypertension (12030815 ) Essential (primary) hypertension (I10) ActiveconfirmedProblemAge-related osteoporosis (422107027)Age-related osteoporosis without current pathological fracture (M81.0)ActiveconfirmedProblem Chronic maxillary sinusitis (38956890)Chronic maxillary sinusitis (J32.0)Active confirmedProblemHyperlipidemia (16663864)Hyperlipidemia (E78.5)Activeconfirmed ProblemRotoscoliosis (M41.80)Activeconfirmed Vital Signs Blood pressure diastolic 60 mm Hg 06/04/2025 Hmvhxy09.5 in06/04/2025lood pressure ssicgsiw659 mm Hg06/04/20255307Isobdc525.4 lbs 06/04/2025BMI27.95 kg/m206/04/2025 Encounters Encounter Location Date Provider Diagnosis [facility] [address] [place] [address] 05/17/2025 Kimber Dee UTI symptoms R39.9 [facility] [address] [place] [address] 06/05/2025 Kimber Price [facility] [place] [place] [address] 06/11/2025Pamela NorbertomerDysuria R30.0[facility] [place] [facility] [address]/11/2024[facility] [place] [place] [address]/[facility] [place] [facility] [place] [address] 06/07/2025Doug HoyDysuria R30.0[facility] [place] [place] [address]/Pamela DeeLeft hand pain M79.642[facility] [place] [address]/ Kimber CramerUTI symptoms R39.9[facility] [place] [address]/08/2025Pamela NorbertomerDysuria R30.0 Assessments Encounter Date Diagnosis (ICD Code) Assessment Notes Treatment Notes Treatment Clinical Notes Section Notes 11/13/2024 Left hand pain (ICD-10 - M79.642 ) likely arthritic flare try diclofenac, if not helping , try prednisone fu as needed discussed rheum referral, NCS 05/17/2025UTI symptoms (ICD-10 - R39.9) defers UA CS [...] End Date [place] [address] [place] [address] [id number] Keisha Coffeyelf - patient is the insuredMMO MEDICARE SUPPLEMENTPO [address] [place] [id number], JaniceSelf - patient is the insured Medical (General) History Medical History History ICD Code Hypertension I10 Osteoporosis M81.0 Low back pain associated wit h a spinal disorder other than radiculopathy or spinal stenosis M54.50 Surgical History Surgery Date(Month/Year) appendectomy hysterectomyHospitalization History Reason Date(Month/Year) see above
--- OUTSIDE RECORDS SUMMARY | 2025-09-24 07:11 | XMS_ITS | Clinical Summary ---
Author Organization [facility] Address [address] [place] [address] Care Team Providers Care Cement Kiln Operator Name Role Phone Emely Kramer MD Primary Care Provider [phone] Allergies No known active allergies Medications MedicationSigDispense [...] High-dose Seasonal, Quadrivalent, Preservative Free07/03/2021Influenza, Seasonal, Quadrivalent, Abdlowxjzr08/21/2022,07/02/2020Influenza, injectable, quadrivalent, preservative free08/12/2015Influenza, seasonal, injectable 08/03/2013Influenza, seasonal, injectable, preservative free, 6 moonths & older 07/24/2014Influenza, trivalent, iaijyhrqxb48/18/2018Pfizer SARS-CoV-2 Lkrttcklnjp91/07/2021,11/21/2020,1Pneumococcal Conjugate PCV 13 01/19/2017Pneumococcal Polysaccharide EHE590406/09/2018Zoster, Recombinant 12/08/2019 Family History Medical HistoryRelationNameCommentsStomach cancerFatherheart issuesMother RelationNameStatusCommentsFatherMother Social History Tobacco UseTypesPacks/DayYears UsedDateSmoking Tobacco: NeverSmokeless Tobacco: NeverAlcohol UseStandard Drinks/WeekCommentsNever0 (1 standard drink = 0.6 oz pure alcohol)Humiliation, Afraid, Rape, and Kick questionnaireAnswerDate RecordedWithin the last year, have you been afraid of your partner or ex-partner?No05/13/2023Emotionally AbusedNot on file05/13/2023hysically Abused Not on file05/13/2023Sexually AbusedNot on file05/13/2023HQ-2AnswerDate RecordedPatient Health Questionnaire-2 Qyqgs340UT Safety & Environment AnswerDate RecordedWithin the last year, have you been afraid of your partner or ex-partner?No05/13/2023Emotionally AbusedNot on file05/13/2023hysically Abused Not on file05/13/2023Sexually AbusedNot on file05/13/2023In the past year have you been physically or sexually abused?Unrecognized value3 CommentsUnknownSex and Gender InformationValueDate RecordedSex Assigned at Not on fileLegal VnxJphuda83/21/2023 1:18 PM EDTGender IdentityChoose not to ljfdiicb75/17/2023 12:14 PM EDTSexual OrientationChoose not to disclose 05/13/2023 12:14 PM EDT Last Filed Vital Signs Vital SignReadingTime TakenCommentsBlood Qpxvnruv265/75005/13/2023 10:58 AM EDT Fmhql716405/13/2023 10:58 AM PZNGxdqwnxwnyp91.8 ??C (98.3 ??F)05/13/2023 10:58 AM EDTRespiratory Rate--Oxygen Saturation--Inhaled Oxygen Concentration--Alonfq13.4 kg (172 lb 12.8 oz)05/13/2023 10:58 AM DGLTblnmp739.2 cm (5' 1.5 )05/13/2023 10:58 AM EDTBody Mass Index32.12005/13/2023 10:58 AM EDT Plan of Treatment Health MaintenanceDue DateLast DoneCommentsMedicare Annual Wellness (AWV) 1945Depression Ykzvdgtpd80/21/1959Adult Tmetdql5407/17/1969Fall Risk Enlyvncqo78/21/2012Zoster Vaccines (2 of 2)COVID-19 Vaccine ( season), [...] CoffeyAccophilipp TypeRelation to PatientDate of BirthPhone Billing AddressPersonal/RxruycPjss1945 [id number] [address] Care Teams Team MemberRelationshipSpecialtyStart DateEnd Date Emely Kramer MD [address] [facility]05/13/23
[2025-09-24 07:20] VITALS: BP 117/70; PULSE 75; TEMP 35.8; O2SAT 95
[2025-09-24] MEDS: IOHEXOL 240 MG/ML - 10 ML VIAL 24 MG INJ (08:03)
[2025-09-24] MEDS: LIDOCAINE HCL 2% 400 MG/20 ML MDV INJ (08:03)
[2025-09-24] MEDS: BUPIVACAINE HCL 0.25% PF 25 MG/10 ML VIAL 2 ML INJ (08:03)
[2025-09-24] MEDS: METHYLPREDNISOLONE ACETATE 40 MG/ML VIAL INJ (08:03)
[2025-09-24 08:05] VITALS: BP 146/77; BP 147/78; PULSE 74; PULSE 76; O2SAT 96; O2SAT 97
--- NOTE | 2025-09-24 08:05 | W.PM.PROCNOT ---
Date of procedure: 09/24/25 Pre-op diagnosis: Pain due to right sacroiliitis Post-op diagnosis: same as pre-op Procedure: Procedure: Right sacroiliac joint injection Medications: Bupivacaine 0.25% 4cc, depomedrol 40mg After informed consent was obtained, the patient was brought to the medical procedure unit and placed in the prone position, when a timeout was completed verifying correct patient, procedure, site, positioning, implant, and/or special equipment.? The skin overlying the area was prepped and draped in standard sterile fashion using alcohol.? A 25-gauge needle was inserted towards the right sacroiliac joint under direct fluoroscopic imaging.? Needle tip was advanced until the joint was encountered.? We instilled a total of 2 mL of solution.? Postoperatively needles were removed.? The patient tolerated the procedure well without complication.? The patient reported reduction in pain symptoms postoperatively. Anesthesia: Local Surgeon: Gianna Kelley Pathology: none sent Condition: stable Disposition: no change
== END 2025-09-24 08:09 | disposition home or self-care (01) ==
PROVIDERS: PCP Nurse Practitioner Family; Visit Provider Anesthesiology
DX: M46.1 Sacroiliitis, not elsewhere classified (principal); G89.29 Other chronic pain
CPT/HCPCS: 27096; J0665; J1010; Q9966